=== PATIENT | female | born 1980 | race Caucasian/White ===

== ENCOUNTER 2019-07-21 23:29 | Emergency (ER) | payer OTHER, SELFPAY ==
[2019-07-21 23:30] VITALS: BP 158/80; PULSE 125; RESP 18; TEMP 36.7; O2SAT 100; BMI 32.8
--- NOTE | 2019-07-21 23:39 | ED.RN ---
when walking back from triage pt reports to this rn chest pain. pt placed in gown, on quality assurance monitor chassis. reports pain goes through to her back. this rn called for an ekg. pt sinus tach on monitor at 130. waiting to be seen.
--- NOTE | 2019-07-22 00:06 | RAD_ITS ---
STUDY: X-RAY CHEST REASON FOR EXAM: Female, 38 years old. C/O COUGH, CP AND UPPER BACK PAIN TECHNIQUE: PA and lateral views of the chest. COMPARISON: None. FINDINGS: The lungs are clear and expanded. There is no demonstrated pleural abnormality. Normal size heart. Normal mediastinum and sherwin. Normal visualized pulmonary arteries. Normal visualized aortic arch and descending thoracic aorta. Normal visualized thoracic spine. Normal visualized ribs, clavicles, and shoulders. There is no demonstrated abnormality of the visualized soft tissue structures of the upper abdomen. RAD/Chest PA and Lateral IMPRESSION: Normal x-ray examination of the chest. Electronically Signed: Charity Serrano MD at 0:44 EST , Service support ,
--- NOTE | 2019-07-22 00:06 | EKG12_ITS ---
Test Reason : CHEST TIGHTNESS Blood Pressure : / mmHG Vent. Rate : 126 BPM Atrial Rate : 126 BPM P-R Int : 114 ms QRS Dur : 080 ms QT Int : 316 ms P-R-T Axes : 063 078 064 degrees QTc Int : 457 ms Sinus tachycardia with Premature supraventricular complexes Otherwise normal ECG Confirmed by MILI REYES ([id number]), avid editor CHARMAINE PORTER ([id number]) on 07/25/2019 9:23:54 AM Referred By: Georgiana Holden Confirmed By:MILI REYES
--- NOTE | 2019-07-22 00:08 | ED.VIS.GEN ---
History of Present Illness Chief Complaint: General Illness Narrative: Patient is a 38-year-old female who presents with chest pain. She initially noted symptoms about 2 hours ago. She had a mild discomfort in the center of her chest. This is sharp. She now complains of central thoracic back pain. Her pain currently is a 5 out of 10. She is not short of breath. Her pain is not pleuritic. She also checked her vitals and noted that she was tachycardic. She has been exposed to influenza. She complains of mild myalgias and mild sore throat. No fever. No cough. No vomiting or diarrhea. She is treated for ADD but has no other medical history. She denies history of DVT or pulmonary embolism. She denies leg pain or swelling. She denies recent travel or surgery. Past Medical History - Allergies and Home Meds Allergies/Adverse Reactions: Allergies amoxicillin [From Augmentin] Allergy (Verified 07/21/19 23:33) Shortness of breath clavulanic acid [From Augmentin] Allergy (Verified 07/21/19 23:33) Shortness of breath Primary Care Physician: Georgiana Holden DO [Primary Care Provider] - Past Medical History: - - ADD Smoking Status: Current every day smoker Review of Systems All systems negative except as indicated General: Denies: Chills, Fever Eyes: Denies: Visual changes - bilaterally ENT: Reports: Sore throat. Denies: Bilateral ear pain Cardiovascular: Reports: Chest pain Respiratory: Denies: Dyspnea Gastrointestinal: Denies: Abdominal pain, Nausea, Vomiting Musculoskeletal: Reports: Myalgias. Denies: Extremity Pain Skin: Denies: Rash Neurological: Denies: Headache Physical Exam Vital Signs/Narrative: Vital Signs Temp Pulse Resp BP Pulse Ox 07/21/19 23:30 98.1 F 125 H 18 158/80 H 100 Diagnostic/Tx/Re-eval Impressions Chest X-Ray 07/22/19 00:06 IMPRESSION: Normal x-ray examination of the chest. Electronically Signed: Charity Serrano MD at 0:44 EST , Service support , Chest CTA 07/22/19 00:46 IMPRESSION: Negative CTA chest examination, without a demonstrated pulmonary embolism or arterial dissection. Mild apical emphysematous changes otherwise no acute cardiopulmonary process seen. Electronically Signed: Charity Serrano MD at 2:09 EST , Service support , 07/22/19 00:06 Chest PA and Lateral [RAD] Stat 07/22/19 00:46 CTA Chest W/WO Contrast [CT] Stat 07/22/19 00:20 Mucosa - Nasopharyngeal Influenza Types A,B Direct FA ([facility]) - Final Influenzae A Laboratory Results 07/22/19 07/22/19 07/22/19 00:20 00:20 00:20 WBC 8.1 RBC 5.19 Hgb 14.2 Hct 43.0 MCV 82.9 MCH 27.4 MCHC 33.0 RDW Std Deviation 43.1 RDW Coeff of Jo 14.2 Plt Count 247 MPV 10.1 Immature Gran % (Auto) 0.500 Neut % (Auto) 81.9 H Lymph % (Auto) 8.5 L [place] % (Auto) 7.6 Eos % (Auto) 0.9 Baso % (Auto) 0.6 Absolute Neuts (auto) 6.6 Absolute Lymphs (auto) 0.69 L Nucleated RBC % 0 D-Dimer Quant (PE/DVT) 0.78 H* Sodium 139 Potassium 3.9 Chloride 107 Carbon Dioxide 28.0 Anion Gap 4 L BUN 12 Creatinine 0.82 Estim Creat Clear Calc 77.70 Est GFR (MDRD) Af Amer 101 Est GFR (MDRD) Non-Af 84 BUN/Creatinine Ratio 14.7 Glucose 90 Calcium 9.5 Troponin I < 0.015 - Medical Decision Making Patient underwent the above work-up. EKG shows sinus tachycardia with PACs at a rate of 126. Given tachycardia with otherwise unexplained sudden onset sharp chest pain, pulmonary embolism is considered. She was felt to be low risk so initially obtain d-dimer. This did return greater than 0.5. Therefore CTA was obtained which is negative for pulmonary embolism. Patient did return positive for influenza A. Patient is otherwise generally healthy. She does not meet criteria for hospitalization. We discussed risks and benefits of antiviral therapy and given potential side effect profile patient agrees with my plan to defer on treatment stating she does not want it. However she does understand to return for new or worsening symptoms. 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 Patient understands otherwise to follow-up as an outpatient and to return for new or worsening symptoms and was discharged home. ED Disposition - Plan for ED Patient: Disposition: Home or Assisted Living Diagnosis: Influenza A Instructions: INFLUENZA (Adult) Referrals: Georgiana Holden DO [Primary Care Provider] -
[2019-07-22] MEDS: 0.9% Normal Saline 1,000 ML 999 ML IV (00:24)
[2019-07-22 00:34] LABS: Absolute Lymphocyte Count 0.69 X10^3/uL (0.83-4.51); Absolute Neutrophil Count 6.6 X10^3/uL (2.0-7.7); Basophil# 0.05 X10^3/uL; Basophil% 0.6 % (0-1); Eosinophil# 0.07 X10^3/uL; Eosinophils% 0.9 % (0-5); Hemoglobin 14.2 g/dL (12.0-15.0); Lymphocyte # 0.69 X10^3/ul (4.0); Lymphocyte % 8.5 % (19-41); Mean Corpuscular Hgb 27.4 pg (27.0-32.0); Mean Corpuscular Volume 82.9 fL (81-99); Mean Platelet Vol. 10.1 fl (6.2-12.0); Monocyte# 0.62 X10^3/uL; Monocyte% 7.6 % (0-10); NRBC Flagged by Analyzer 0 % (0-5); Neutrophil # 6.64 X10^3/uL (2.7-7.7); Neutrophil % 81.9 % (47-70); Platelet Count 247 K/mm3 (150-450); RBC Distribution Width CV 14.2 % (11.6-14.6); RBC Distribution Width SD 43.1 fl (35.1-43.9); Red Blood Count 5.19 M/mm3 (4.2-5.4); White Blood Count 8.1 K/mm3 (4.4-11.0)
[2019-07-22 00:41] VITALS: BP 132/81; PULSE 118; RESP 18; TEMP 36.7; O2SAT 98
[2019-07-22 00:43] LABS: D-Dimer Quantitative (DVT/PE) 0.78 FEU/ug/m (0.27-0.49)
--- NOTE | 2019-07-22 00:46 | CT_ITS ---
STUDY: CTA CHEST REASON FOR EXAM: Female, 38 years old. ELEV DDIMER/INFLUENZA B. cough RADIATION DOSAGE (If Supplied By Facility): CTDIvol = ( 10.95 ) mGy, DLP = ( 487.62 ) mGycm TECHNIQUE: The examination was performed with the intravenous administration of Isovue 370 100ml. Post-processing of the angiographic images was performed, with multiplanar reformation and 3D reconstruction. Individualized dose optimization techniques were used for this CT. COMPARISON: None. FINDINGS: Normal enhancement of the main pulmonary artery and right and left pulmonary arteries. Normal enhancement of the bilateral peripheral pulmonary arteries. There is no demonstrated pulmonary embolism. Normal thoracic aorta and visualized great vessels. There is no demonstrated aortic dissection. Normal heart and pericardium. Borderline mild lymph node enlargement throughout the bilateral hilar regions, aortopulmonary window and paratracheal region largest averaging approximately 1.3 x 1.4 cm. Normal hilar regions. Normal visualized trachea and bronchi. The lungs are well expanded. Minimal bilateral apical emphysematous changes. Otherwise normal pulmonary parenchyma. Normal pleura. Normal chest wall structures. Mild multilevel degenerative disease of the spine. Normal visualized upper abdomen. CT/CTA Chest W/WO Contrast IMPRESSION: Negative CTA chest examination, without a demonstrated pulmonary embolism or arterial dissection. Mild apical emphysematous changes otherwise no acute cardiopulmonary process seen. Electronically Signed: Charity Serrano MD at 2:09 EST , Service support ,
[2019-07-22 00:54] LABS: Anion Gap 4 (5-15); BUN 12 mg/dL (7-18); BUN/Creat Ratio 14.7 RATIO (10-20); Calcium,Total 9.5 mg/dL (8.5-10.1); Chloride 107 mmol/L (98-107); Creatinine, Serum 0.82 mg/dL (0.55-1.02); EST Glomerular Filtration Rate 84 mL/min (>60); Est Glom Filt Rate - Afr Amer 101 mL/min (>60); Glucose 90 mg/dL (74-106); Potassium 3.9 mmol/L (3.5-5.1); Sodium Level 139 mmol/L (136-145)
[2019-07-22 01:54] VITALS: BP 133/75; PULSE 115; RESP 18; TEMP 36.7; O2SAT 98
[2019-07-22 02:34] VITALS: BP 125/88; PULSE 108; RESP 18; O2SAT 100
== END 2019-07-22 02:35 | disposition home or self-care (01) ==
PROVIDERS: Emergency Provider Emergency Medicine
DX: J11.1 Influenza due to unidentified influenza virus with other respiratory manifestations (principal); F98.8 Other specified behavioral and emotional disorders with onset usually occurring in childhood and adolescence; Z72.0 Tobacco use; Z79.899 Other long term (current) drug therapy
CPT/HCPCS: 71046; 71275; 80048; 84484; 85025; 85379; 87804; 93005; 96360; 96361; 99285; J7030; Q9967; A4216

== ENCOUNTER → 2019-11-05 07:50 | Outpatient (CLI) | payer OTHER, SELFPAY ==
--- NOTE | 2019-11-05 07:54 | US_ITS ---
STUDY: ABDOMINAL ULTRASOUND - RIGHT UPPER QUADRANT REASON FOR VISIT: Female, 39 years old ABD PAIN TECHNIQUE: Ultrasound evaluation of the right upper quadrant was performed with real-time and static medina-scale imaging. TECHNICAL QUALITY: Adequate. COMPARISON: None. FINDINGS: Liver: The liver measures 15.9 cm. There is normal echogenicity of the liver. The bile ducts are within normal limits. There is hepatic color flow. The direction of portal flow is hepatopetal. There is no demonstrated mass lesion. Gallbladder: Normal distended gallbladder. The gallbladder wall measures 2 mm. There is a negative sonographic Cho''s sign. There is no pericholecystic fluid. There are no gallstones. Common Bile Duct (C.B.D.): The common bile duct measures 2 mm. Pancreas: Normal size of the head, body and tail of the pancreas. There is normal echogenicity of the pancreas. There is no demonstrated pancreatic mass or cyst. Right Kidney: Normal size of the right kidney. The right kidney measures 12.5 cm. Normal renal cortex. The right cortex measures 1.6 cm. There is no demonstrated renal mass or cyst. There is no right hydronephrosis. US/Abdomen Limited IMPRESSION: Normal right upper quadrant ultrasound examination. Electronically Signed: Dale Gold MD at 8:38 EDT Tel , Service support ,
== END ==
DX: R10.11 Right upper quadrant pain (principal)
CPT/HCPCS: 76705

== ENCOUNTER 2020-03-16 08:33 | Outpatient (RCR) | payer OTHER, SELFPAY | END 2020-03-17 23:59 | LOC: EMPH 08:33 | PROVIDERS: Visit Provider Family Medicine Geriatric Medicine | DX: Z11.59 Encounter for screening for other viral diseases (principal) | CPT/HCPCS: 87635; U0003 ==

== ENCOUNTER 2020-04-16 17:50 | Outpatient (RCR) | payer OTHER, SELFPAY | END 2020-04-17 23:59 | LOC: EMPH 17:50 | PROVIDERS: Visit Provider Family Medicine Geriatric Medicine | DX: Z03.818 Encounter for observation for suspected exposure to other biological agents ruled out (principal) | CPT/HCPCS: 87426 ==

== ENCOUNTER 2020-05-12 08:07 | Outpatient (RCR) | payer OTHER, SELFPAY | END 2020-05-17 23:59 | LOC: EMPH 08:07 | PROVIDERS: Visit Provider Family Medicine Geriatric Medicine | DX: Z03.818 Encounter for observation for suspected exposure to other biological agents ruled out (principal) | CPT/HCPCS: 87426 ==

== ENCOUNTER 2020-06-16 14:09 | Outpatient (RCR) | payer OTHER, SELFPAY ==
[2020-05-31 18:12] LABS: Probe Check PASS; Specimen Processing Control PASS
== END 2020-06-17 23:59 ==
LOC: EMPH 14:09
PROVIDERS: Internal Medicine Infectious Disease; Visit Provider Family Medicine Geriatric Medicine
DX: Z03.818 Encounter for observation for suspected exposure to other biological agents ruled out (principal)
CPT/HCPCS: 87426; 87633; 87635; U0002

== ENCOUNTER 2020-07-16 08:43 | Outpatient (RCR) | payer OTHER, SELFPAY ==
[2020-06-17 08:15] VITALS: BMI 37.6
== END 2020-07-18 23:59 ==
LOC: EMPH 08:43
PROVIDERS: Referring Provider Family Medicine Geriatric Medicine; Visit Provider Family Medicine Geriatric Medicine
DX: Z03.818 Encounter for observation for suspected exposure to other biological agents ruled out (principal)
CPT/HCPCS: 87426

== ENCOUNTER 2020-08-10 12:27 | Outpatient (RCR) | payer OTHER, SELFPAY ==
[2020-06-17 08:15] VITALS: BMI 37.6
== END 2020-08-15 23:59 ==
LOC: EMPH 12:27
PROVIDERS: Visit Provider Family Medicine Geriatric Medicine
DX: Z03.818 Encounter for observation for suspected exposure to other biological agents ruled out (principal)
CPT/HCPCS: 87426

== ENCOUNTER 2020-09-09 08:07 | Outpatient (RCR) | payer OTHER, SELFPAY ==
[2020-06-17 08:15] VITALS: BMI 37.6
== END 2020-09-15 23:59 ==
LOC: EMPH 08:07
PROVIDERS: Visit Provider Family Medicine Geriatric Medicine
DX: Z03.818 Encounter for observation for suspected exposure to other biological agents ruled out (principal)
CPT/HCPCS: 87426

== ENCOUNTER 2020-10-15 10:03 | Outpatient (RCR) | payer OTHER, SELFPAY ==
[2020-06-17 08:15] VITALS: BMI 37.6
== END 2020-10-15 23:59 ==
LOC: EMPH 10:03
PROVIDERS: Visit Provider Family Medicine Geriatric Medicine
DX: Z03.818 Encounter for observation for suspected exposure to other biological agents ruled out (principal)
CPT/HCPCS: 87426

== ENCOUNTER 2020-12-14 11:04 | Outpatient (RCR) | payer OTHER, SELFPAY ==
[2020-06-17 08:15] VITALS: BMI 37.6
== END 2020-12-15 23:59 ==
LOC: EMPH 11:04
PROVIDERS: Visit Provider Family Medicine Geriatric Medicine
DX: Z03.818 Encounter for observation for suspected exposure to other biological agents ruled out (principal)
CPT/HCPCS: 87426

== ENCOUNTER 2021-02-15 11:46 | Outpatient (RCR) | payer OTHER, SELFPAY ==
[2020-06-17 08:15] VITALS: BMI 37.6
== END 2021-02-15 23:59 ==
LOC: EMPH 11:46
PROVIDERS: Referring Provider Family Medicine Geriatric Medicine; Visit Provider Family Medicine Geriatric Medicine
DX: Z03.818 Encounter for observation for suspected exposure to other biological agents ruled out (principal)
CPT/HCPCS: 87426

== ENCOUNTER 2021-03-10 08:31 | Outpatient (RCR) | payer OTHER, SELFPAY ==
[2021-02-16 00:15] VITALS: BMI 37.6
== END 2021-03-17 23:59 ==
LOC: EMPH 08:31
PROVIDERS: Referring Provider Family Medicine Geriatric Medicine; Visit Provider Family Medicine Geriatric Medicine
DX: Z03.818 Encounter for observation for suspected exposure to other biological agents ruled out (principal)
CPT/HCPCS: 87426

== ENCOUNTER 2021-04-28 13:58 | Outpatient (RCR) | payer OTHER, SELFPAY ==
[2021-03-18 00:11] VITALS: BMI 37.6
== END 2021-05-17 23:59 ==
LOC: EMPH 13:58
PROVIDERS: Referring Provider Family Medicine Geriatric Medicine; Visit Provider Family Medicine Geriatric Medicine
DX: Z03.818 Encounter for observation for suspected exposure to other biological agents ruled out (principal)
CPT/HCPCS: 87426

== ENCOUNTER 2021-06-16 10:06 | Outpatient (RCR) | payer OTHER, SELFPAY ==
[2021-05-18 00:06] VITALS: BMI 37.6
== END 2021-06-17 23:59 ==
LOC: EMPH 10:06
PROVIDERS: Referring Provider Family Medicine Geriatric Medicine; Visit Provider Family Medicine Geriatric Medicine
DX: Z03.818 Encounter for observation for suspected exposure to other biological agents ruled out (principal)
CPT/HCPCS: 87426; 87635; U0003; U0005

== ENCOUNTER → 2021-07-01 06:19 | Outpatient (CLI) | payer OTHER, SELFPAY ==
[2021-07-01 07:31] LABS: Absolute Lymphocyte Count 2.53 X10^3/uL (0.83-4.51); Absolute Neutrophil Count 7.7 X10^3/uL (2.0-7.7); Basophil# 0.07 X10^3/uL; Basophil% 0.6 % (0-1); Eosinophil# 0.13 X10^3/uL; Eosinophils% 1.2 % (0-5); Hematocrit 46.2 % (37-47); Lymphocyte # 2.53 X10^3/ul (0.83-4.51); Lymphocyte % 22.7 % (19-41); Mean Corp Hgb Conc 32.5 g/dL (32-36); Mean Corpuscular Hgb 26.3 pg (27.0-32.0); Mean Corpuscular Volume 81.1 fL (81-99); Mean Platelet Vol. 9.9 fl (6.2-12.0); Monocyte% 6.3 % (0-10); NRBC Flagged by Analyzer 0 % (0-5); Neutrophil # 7.68 X10^3/uL (2.7-7.7); Neutrophil % 68.8 % (47-70); Platelet Count 347 K/mm3 (150-450); RBC Distribution Width CV 14.7 % (11.6-14.6); RBC Distribution Width SD 42.8 fl (35.1-43.9); White Blood Count 11.2 K/mm3 (4.4-11.0)
[2021-07-01 08:14] LABS: AST(SGOT) 12 U/L (15-37); Alanine Aminotransfer ALT/SGPT 29 U/L (13-56); Alkaline Phosphatase 85 U/L (45-117); Anion Gap 4 (5-15); BUN 14 mg/dL (7-18); BUN/Creat Ratio 19.4 RATIO (10-20); Calcium,Total 9.9 mg/dL (8.5-10.1); Chloride 103 mmol/L (98-107); Cholesterol 154 mg/dL (200); Creatinine, Serum 0.72 mg/dL (0.55-1.02); EST Glomerular Filtration Rate 95 mL/min (>60); Est Glom Filt Rate - Afr Amer 115 mL/min (>60); Ferritin 171 ng/mL (8-252); Globulin 4.1 g/dL (2.2-4.2); Glucose 103 mg/dL (74-106); High Density Lipoprotein 44 mg/dL; Iron 29 ug/dL (50-170); Iron Binding Capacity,Total 282 ug/dL (250-450); PERCENT IRON SATURATION 10.3 % (15.0-55.0); Protein, Total 8.1 g/dL (6.4-8.2); Sodium Level 136 mmol/L (136-145); T4 Free Direct 1.29 ng/dL (0.76-1.46); Thyroid Stim Hormone (TSH) 2.66 uIU/mL (0.358-3.74); Triglycerides 86 mg/dL; Very Low Density Lipoprotein 17 mg/dL (5-40)
[2021-07-01 08:55] LABS: Vitamin B12 388 pg/mL (211-911); Vitamin D,25 Hydroxy 23.2 ng/mL
== END ==
DX: Z00.00 Encounter for general adult medical examination without abnormal findings (principal); Z13.29 Encounter for screening for other suspected endocrine disorder; R53.82 Chronic fatigue, unspecified
CPT/HCPCS: 36415; 80053; 80061; 82306; 82607; 82728; 83540; 83550; 84439; 84443; 85025

== ENCOUNTER 2021-07-14 17:55 | Outpatient (RCR) | payer OTHER, SELFPAY ==
[2021-06-18 00:10] VITALS: BMI 37.6
== END 2021-07-18 23:59 ==
LOC: EMPH 17:55
PROVIDERS: Referring Provider Family Medicine Geriatric Medicine; Visit Provider Family Medicine Geriatric Medicine
DX: Z03.818 Encounter for observation for suspected exposure to other biological agents ruled out (principal)
CPT/HCPCS: 87426

== ENCOUNTER 2021-08-15 08:38 | Outpatient (RCR) | payer OTHER, SELFPAY ==
[2021-07-19 00:16] VITALS: BMI 37.6
== END 2021-08-15 23:59 ==
LOC: EMPH 08:38
PROVIDERS: Referring Provider Family Medicine Geriatric Medicine; Visit Provider Family Medicine Geriatric Medicine
DX: Z03.818 Encounter for observation for suspected exposure to other biological agents ruled out (principal)
CPT/HCPCS: 87426

== ENCOUNTER → 2022-08-08 | Outpatient (CLI) | payer OTHER, SELFPAY ==
[2022-08-08 07:26] LABS: Absolute Lymphocyte Count 2.69 X10^3/uL (0.83-4.51); Absolute Neutrophil Count 5.7 X10^3/uL (2.0-7.7); Basophil# 0.06 X10^3/uL; Basophil% 0.7 % (0-1); Eosinophil# 0.16 X10^3/uL; Eosinophils% 1.7 % (0-5); Hematocrit 46.7 % (37-47); Hemoglobin 15.2 g/dL (12.0-15.0); Lymphocyte # 2.69 X10^3/ul (0.83-4.51); Lymphocyte % 29.2 % (19-41); Mean Corp Hgb Conc 32.5 g/dL (32-36); Mean Corpuscular Volume 82.8 fL (81-99); Mean Platelet Vol. 9.8 fl (6.2-12.0); Monocyte# 0.52 X10^3/uL; Monocyte% 5.6 % (0-10); NRBC Flagged by Analyzer 0 % (0-5); Neutrophil # 5.74 X10^3/uL (2.7-7.7); Neutrophil % 62.4 % (47-70); Platelet Count 358 K/mm3 (150-450); RBC Distribution Width CV 15.1 % (11.6-14.6); RBC Distribution Width SD 45.9 fl (35.1-43.9); Red Blood Count 5.64 M/mm3 (4.2-5.4); White Blood Count 9.2 K/mm3 (4.4-11.0)
[2022-08-08 08:10] LABS: ALB/GLOB Ratio 0.8 RATIO (0.9-2.4); AST(SGOT) 18 U/L (15-37); Alanine Aminotransfer ALT/SGPT 24 U/L (13-56); Albumin, Serum 3.5 g/dL (3.2-5.0); Alkaline Phosphatase 94 U/L (45-117); Anion Gap 4 (5-15); BUN 11 mg/dL (7-18); BUN/Creat Ratio 12.4 RATIO (10-20); Calcium,Total 9.7 mg/dL (8.5-10.1); Chloride 109 mmol/L (98-107); Cholesterol 162 mg/dL (200); Creatinine, Serum 0.89 mg/dL (0.55-1.02); EST Glomerular Filtration Rate 75 mL/min (>60); Est Glom Filt Rate - Afr Amer 90 mL/min (>60); Ferritin 212 ng/mL (8-252); Globulin 4.2 g/dL (2.2-4.2); Glucose 80 mg/dL (74-106); High Density Lipoprotein 48 mg/dL; Iron 41 ug/dL (50-170); Iron Binding Capacity,Total 253 ug/dL (250-450); PERCENT IRON SATURATION 16.2 % (15.0-55.0); Protein, Total 7.7 g/dL (6.4-8.2); Sodium Level 138 mmol/L (136-145); Thyroid Stim Hormone (TSH) 1.42 uIU/mL (0.358-3.74); Triglycerides 115 mg/dL; Very Low Density Lipoprotein 23 mg/dL (5-40)
[2022-08-08 08:49] LABS: Vitamin D,25 Hydroxy 28.2 ng/mL
== END | disposition home or self-care (01) ==
LOC: LAB 06:49
DX: Z00.00 Encounter for general adult medical examination without abnormal findings (principal); E61.1 Iron deficiency; E55.9 Vitamin D deficiency, unspecified; Z13.29 Encounter for screening for other suspected endocrine disorder; Z13.220 Encounter for screening for lipoid disorders; Z13.6 Encounter for screening for cardiovascular disorders
CPT/HCPCS: 36415; 80053; 80061; 82306; 82728; 83540; 83550; 84439; 84443; 85025

== ENCOUNTER → 2023-01-23 | Outpatient (CLI) | payer OTHER, SELFPAY ==
--- NOTE | 2023-01-23 07:18 | BI_ITS ---
MAMMOGRAPHY - BILATERAL SCREENING REASON FOR EXAM: Female, 42 years old. Routine annual screening examination. PERTINENT HISTORY: Grandmother with breast cancer. TECHNIQUE: Digital bilateral breast mayank (3D mammographic acquisition) in the CC and MLO projections. 2-D mediolateral oblique (MLO) and craniocaudad (CC) views of both breasts were obtained. CAD: Full Field Digital Mammography with Computer Added Detection was performed. COMPARISON: None. Baseline examination. FINDINGS: Breast Composition: The breasts are extremely dense, which lowers the sensitivity of mammography. There are no dominant masses or suspicious calcifications. There is a 6.1 mm well-defined nodule in the upper lateral aspect of the left breast. This may represent either a cyst or small lymph node. Correlation with ultrasound is recommended. Small benign-appearing bilateral axillary lymph nodes. No other significant abnormalities are identified. BI/SCRN MAMM (CAD)W/MAYANK BILAT IMPRESSION: 6.1 mm well-defined nodule in the upper lateral aspect of the left breast. Correlation with ultrasound is recommended. ASSESSMENT CATEGORY: BIRADS Category 0: Incomplete. Need additional imaging evaluation. A letter regarding these results will be sent to the patient by the facility within 30 days. Approximately 10% of breast cancers are not detected by mammography. A normal mammogram should not delay biopsy of a clinically suspicious abnormality. [id number] Electronically Signed: Sherwin Johnson MD at 10:57 EDT ,
== END | disposition home or self-care (01) ==
DX: Z12.31 Encounter for screening mammogram for malignant neoplasm of breast (principal)
CPT/HCPCS: 77063; 77067

== ENCOUNTER → 2023-01-30 | Outpatient (CLI) | payer OTHER, SELFPAY ==
--- NOTE | 2023-01-30 08:03 | US_ITS ---
STUDY: ULTRASOUND BREAST - LEFT REASON FOR EXAM: Female, 42 years old. Abnormal screening mammogram. TECHNIQUE: Axial and longitudinal images of the LEFT breast were performed with a high resolution ultrasound transducer. # OF IMAGES: 18 COMPARISON: Comparison is made with prior study date January 23, 2023. FINDINGS: LEFT Breast: The mammographic abnormality corresponds to a 6 mm x 8 mm x 4 mm cyst at the 1:00 position of the breast at 2 cm from the nipple. US/Breast Limited Unilateral IMPRESSION: The mammographic abnormality corresponds to an 8 mm x 6 mm x 4 mm cyst at the 1:00 position of the breast at 2 cm from the nipple. ASSESSMENT CATEGORY: BIRADS Category 2: Benign. A letter regarding these results will be sent to the patient by the facility within 30 days. Electronically Signed: Sherwin Johnson MD at 10:48 EDT ,
== END | disposition home or self-care (01) ==
DX: R92.8 Other abnormal and inconclusive findings on diagnostic imaging of breast (principal)
CPT/HCPCS: 76642

== ENCOUNTER → 2023-06-28 | Outpatient (CLI) | payer OTHER, SELFPAY ==
--- OUTSIDE RECORDS SUMMARY | 2023-06-28 06:24 | XMS RPT_ITS | CCD ---
Author Name Unknown Address [address] [place] [address] Organization [facility] Care Team Providers Care Photoengraving Apprentice Name Role Phone Unavailable Unavailable Unavailable Abisai Wyman Unavailable Unavailable Abisai Wyman Unavailable Unavailable Beth Castillo Primary Care Provider Beth Cabral Primary Care Provider [phone] [facility] CABRAL Admitting Unavailable BETH CABRAL Primary Care Unavailable Beth Cabral Primary Care Provider Required, No Pcp Unavailable Unavailable Christian Garcia Unavailable Unavailable Linda [facility]LAND ATTENDANT, Rachael Lima Primary Care Provider Linda [employer]LAND ATTENDANT, Rachael Lima Primary Care Provider Linda [employer] ATTENDANT, Rachael Lima Unavailable Linda [employer] ATTENDANT, Rachael Lima Unavailable [phone] Deonte Dsouza Unavailable Linda [employer] ATTENDANT, Rachael Lima Primary Care Provider [phone] Linda [employer] ATTENDANT, Rachael Lima Unavailable [phone] Linda [employer] ATTENDANT, Rachael Lima Primary Care Provider LINDA, RACHAEL LIMA Primary Care Unavailable LINDA, RACHAEL LIMA Attending Unavailable LINDA, RACHAEL LIMA Primary Care Unavailable LINDA, RACHAEL LIMA Attending Unavailable LINDA, RACHAEL LIMA Attending Unavailable LINDA, RACHAEL LIMA Primary Care Unavailable LINDA, RACHAEL LIMA Attending Unavailable LINDA, RACHAEL LIMA Primary Care Unavailable LINDA, RACHAEL LIMA Attending Unavailable LINDA, RACHAEL LIMA Primary Care Unavailable LINDA, RACHAEL LIMA Primary Care Unavailable LINDA, RACHAEL LIMA Attending Unavailable Allergies Allergy Classification Reported Allergen(s) Allergy Type Date of Onset Reaction(s) Facility Amoxicillin / Clavulanate (1 source) Amoxicillin / Clavulanate Drug Allergy 9 Hives [facility] Work Phone: Clavulanate (1 source) Clavulanate Drug Allergy 0 [facility] Penicillins (antibiotic) (1 source) Penicillins Drug Allergy 5 [facility] (19 sources) Amoxicillin / Clavulanate; Translations: [Unknown] Drug Allergy 9 Hives, Anaphylaxis [facility] (14 sources) Clavulanate; Translations: [CLAVULANIC ACID] Drug Allergy 0 [facility] (14 sources) Penicillins; Translations: [PENICILLINS] Propensity to adverse reactions to drug 5 [facility] (1 source) Amoxicillin / Clavulanate Drug Allergy Anaphylaxis [facility] Medications Current Medications Medication Drug Class(es) Dates Sig (Normalized) Sig (Original) amphetamine aspartate 7.5 mg / amphetamine sulfate 7.5 mg / dextroamphetamine saccharate 7.5 mg / dextroamphetamine sulfate 7.5 mg oral tablet (20 sources) Central Nervous System Stimulant Start: 01-31-2023 End: 06-29-2023 take 1 tablet by mouth twice daily dextroamphetamine- amphetamine (ADDERALL) 30 mg tablet Indications: Attention deficit hyperactivity disorder (ADHD), predominantly inattentive type Take 1 (one) tablet (30 mg total) by mouth 2 (two) times a day Start: 05/30/23. 60 tablet 0 05/30/2023 06/29/2023 Active Completed/Discontinued Medications Medication Drug Class(es) Dates Sig (Normalized) Sig (Original) baclofen 10 mg oral tablet (1 source) gamma-Aminobutyric Acid-ergic Agonist Start: 08-03-2021 End: 02-10-2022 take 1 tablet by mouth twice daily baclofen (LIORESAL) 10 MG tablet Take 10 mg by mouth 2 (two) times a day . 0 08/03/2021 02/10/2022 Discontinued (Therapy completed) clindamycin 300 mg oral capsule (2 sources) Lincosamide Antibacterial Start: 06-20-2022 End: 07-19-2022 take 1 capsule by mouth three times daily clindamycin (CLEOCIN) 300 MG capsule Indications: Dental infection Take 1 (one) capsule (300 mg total) by mouth 3 (three) times a day . 30 capsule 0 06/20/2022 07/19/2022 Discontinued (Therapy completed) fluconazole 150 mg oral tablet (2 sources) Azole Antifungal Start: 06-20-2022 End: 07-19-2022 take 1 tablet by mouth every other day fluconazole (DIFLUCAN) 150 MG tablet Take 1 (one) tablet (150 mg total) by mouth every other day . 3 tablet 0 06/20/2022 07/19/2022 Discontinued (Therapy completed) FLUoxetine 40 mg oral capsule (8 sources) Serotonin Reuptake Inhibitor Start: 09-14-2021 End: 02-10-2022 take 1 capsule by mouth once daily FLUoxetine (PROZAC) 40 MG capsule Indications: ANSIH (generalized anxiety disorder) Take 1 (one) capsule (40 mg total) by mouth daily . 90 capsule 1 09/14/2021 02/10/2022 Discontinued (Therapy completed) Problems Active Problems Problem Classification Problem Date Documented Date Episodic/Chronic Anxiety disorders (16 sources) Generalized anxiety disorder; Translations: [Generalized anxiety disorder] Onset: 06-23-2019 06-23-2019 Chronic Attention-deficit conduct and disruptive behavior disorders (20 sources) Attention deficit hyperactivity disorder; Translations: [Attention-deficit hyperactivity disorder, unspecified type] Onset: 08-09-2018 08-09-2018 Chronic Attention-deficit, conduct, and disruptive behavior disorders (7 sources) Attention deficit hyperactivity disorder, predominantly inattentive type; Translations: [Attention-deficit hyperactivity disorder, predominantly inattentive type] Chronic Attention-deficit, conduct, and disruptive behavior disorders (2 sources) Attention-deficit hyperactivity disorder, predominantly inattentive type; Translations: [Attention-deficit hyperactivity disorder, predominantly inattentive type] Onset: 08-09-2018 Chronic Headache; including migraine (9 sources) Refractory migraine with aura; Translations: [Migraine with aura, intractable, without status migrainosus] Onset: 02-23-2022 Chronic Mood disorders (20 sources) Depressive disorder; Translations: [Mood disorder] Onset: 06-23-2019 06-23-2019 Chronic Mood disorders (2 sources) Mood disorders; Translations: [Depression, unspecified] Onset: 06-23-2019 Nausea and vomiting (2 sources) Vomiting 11-17-2020 Episodic Past or Other Problems Problem Classification Problem Date Documented Da te Episodic/Chronic Other screening for suspected conditions (not mental disorders or infectious disease) (20 sources) Patient encounter status; Translations: [Encounter for screening mammogram for malignant neoplasm of breast] Onset: 02-23-2022 Resolved: 10-18-2022 Episodic Other skin disorders (18 sources) Hidradenitis suppurativa; Translations: [Hidradenitis suppurativa] Onset: 08-09-2018 08-09-2018 Episodic Results Test Name Value Interpretation Reference Range Facil ity Vital Signs Date Time Vital Sign Value Performing Clinician Facility 04-04-2023 10:32-0400 Body height 160 cm Rachael Linda [employer] ATTENDANT Work Phone: [facility] 04-04-2023 10:32-0400 Body mass index (BMI) [Ratio] 37.24 kg/m2 Rachael Linda CNP Work Phone: [facility] 04-04-2023 10:32-0400 Body temperature 98.1 [degF] Rachael Linda [employer] ATTENDANT Work Phone: [facility] 04-04-2023 10:32-0400 Body weight 95.35 kg Rachael Linda CNP Work Phone: [facility] 04-04-2023 10:32-0400 Diastolic blood pressure 83 mm[Hg] Rachael Linda CNP Work Phone: [facility] 04-04-2023 10:32-0400 Heart rate 106 /min Rachael Linda CNP Work Phone: [facility] 04-04-2023 10:32-0400 SaO2% (BldA) [Mass fraction] 93 % Rachael Linda [employer] ATTENDANT Work Phone: [facility] 04-04-2023 10:32-0400 Systolic blood pressure 125 mm[Hg] Rachael Linda [employer] ATTENDANT Work Phone: [facility] 07-19-2022 15:01-0500 Body height 160 cm Rachael Linda [employer] ATTENDANT Work Phone: [facility] 07-19-2022 15:01-0500 Body mass index (BMI) [Ratio] 37.75 kg/m2 Rachael Linda [employer] ATTENDANT Work Phone: [facility] 07-19-2022 15:01-0500 Body temperature 98.29 [degF] Rachael Linda [employer] ATTENDANT Work Phone: [facility] 07-19-2022 15:01-0500 Body weight 96.66 kg Rachael Linda [employer] ATTENDANT Work Phone: [facility] 07-19-2022 15:01-0500 Diastolic blood pressure 80 mm[Hg] Rachael Linda [employer] ATTENDANT Work Phone: [facility] 07-19-2022 15:01-0500 Heart rate 106 /min Rachael Linda [employer] ATTENDANT Work Phone: [facility] 07-19-2022 15:01-0500 Respiratory rate 16 /min Rachael Linda [employer] ATTENDANT Work Phone: [facility] 07-19-2022 15:01-0500 SaO2% (BldA) [Mass fraction] 98 % Rachael Linda [employer] ATTENDANT Work Phone: [facility] 07-19-2022 15:01-0500 Systolic blood pressure 115 mm[Hg] Rachael Linda [employer] ATTENDANT Work Phone: [facility] 08-03-2021 15:12-0500 Body height 160 cm No Pcp Required [facility] 08-03-2021 15:12-0500 Body temperature 96.98 [degF] No Pcp Required [facility] 08-03-2021 15:12-0500 Diastolic blood pressure 67 mm[Hg] No Pcp Required [facility] 08-03-2021 15:12-0500 Heart rate 96 /min No Pcp Required [facility] 08-03-2021 15:12-0500 Respiratory rate 16 /min No Pcp Required [facility] 08-03-2021 15:12-0500 SaO2% (BldA) [Mass fraction] 96 % No Pcp Required [facility] 08-03-2021 15:12-0500 Systolic blood pressure 124 mm[Hg] No Pcp Required [facility] 04-15-2021 08:07-0400 Body height 160 cm Rachael Linda [employer] ATTENDANT Work Phone: [facility] 04-15-2021 08:07-0400 Body mass index (BMI) [Ratio] 38.6 kg/m2 Rachael Linda [employer] ATTENDANT Work Phone: [facility] 04-15-2021 08:07-0400 Body temperature 98.1 [degF] Rachael Linda [employer] ATTENDANT Work Phone: [facility] 04-15-2021 08:07-0400 Body weight 98.84 kg Rachael Linda [employer] ATTENDANT Work Phone: [facility] 04-15-2021 08:07-0400 Diastolic blood pressure 82 mm[Hg] Rachael Linda [employer] ATTENDANT Work Phone: [facility] 04-15-2021 08:07-0400 Heart rate 83 /min Rachael Linda [employer] ATTENDANT Work Phone: [facility] 04-15-2021 08:07-0400 Respiratory rate 16 /min Rachael Linda [employer] ATTENDANT Work Phone: [facility] 04-15-2021 08:07-0400 SaO2% (BldA) [Mass fraction] 97 % Rachael Linda [employer] ATTENDANT Work Phone: [facility] 04-15-2021 08:07-0400 Systolic blood pressure 117 mm[Hg] Rachael Linda [employer] ATTENDANT Work Phone: [facility] 12-08-2020 10:48-0400 Body height 160 cm Rachael Linda [employer] ATTENDANT Work Phone: [facility] 12-08-2020 10:48-0400 Body mass index (BMI) [Ratio] 38.3 kg/m2 Rachael Linda [employer] ATTENDANT Work Phone: [facility] 12-08-2020 10:48-0400 Body temperature 98.6 [degF] Rachael Linda [employer]LAND ATTENDANT Work Phone: [facility] 12-08-2020 10:48-0400 Body weight 98.07 kg Rachael Linda [employer] ATTENDANT Work Phone: [facility] 12-08-2020 10:48-0400 Diastolic blood pressure 85 mm[Hg] Rachael Linda [employer] ATTENDANT Work Phone: [facility] 12-08-2020 10:48-0400 Heart rate 103 /min Rachael Linda [employer] ATTENDANT Work Phone: [facility] 12-08-2020 10:48-0400 Respiratory rate 16 /min Rachael Linda [employer] ATTENDANT Work Phone: [facility] 12-08-2020 10:48-0400 SaO2% (BldA) [Mass fraction] 98 % Rachael Linda [employer] ATTENDANT Work Phone: [facility] 12-08-2020 10:48-0400 Systolic blood pressure 128 mm[Hg] Rachael Linda [employer] ATTENDANT Work Phone: [facility] 11-17-2020 13:45-0400 Diastolic blood pressure 64 mm[Hg] No Pcp Required [facility] 11-17-2020 13:45-0400 Heart rate 85 /min No Pcp Required [facility] 11-17-2020 13:45-0400 Respiratory rate 16 /min No Pcp Required [facility] 11-17-2020 13:45-0400 SaO2% (BldA) [Mass fraction] 100 % No Pcp Required [facility] 11-17-2020 13:45-0400 Systolic blood pressure 124 mm[Hg] No Pcp Required [facility] 11-17-2020 09:01-0400 Body height 160 cm No Pcp Required [facility] 11-17-2020 09:01-0400 Body temperature 96.98 [degF] No Pcp Required [facility] 11-17-2020 09:01-0400 Body weight 84 kg No Pcp Required [facility] 06-01-2020 11:54-0500 BMI (Body Mass Index) 37.36 kg/m2 Beth Cabral [facility] 06-01-2020 11:54-0500 Body Temperature 97.59 [degF] Beth Cabral [facility] 06-01-2020 11:54-0500 Body weight 95.66 kg Beth Cabral [facility] 06-01-2020 11:54-0500 BP Diastolic 84 mm[Hg] Beth Cabral [facility] 06-01-2020 11:54-0500 BP Systolic 127 mm[Hg] Beth Cabral [facility] 06-01-2020 11:54-0500 Height 160 cm Beth Cabral [facility] 06-01-2020 11:54-0500 Pulse (Heart Rate) 98 /min Beth Cabral [facility] 06-01-2020 11:54-0500 Pulse Oximetry 98 % Beth Cabral [facility] 06-01-2020 11:54-0500 Respiratory Rate 18 /min Beth Cabral [facility] 01-09-2020 10:23-0400 BMI (Body Mass Index) 36.88 kg/m2 [facility]-09-2020 10:23-0400 Body Temperature 97.81 [degF] [facility]-09-2020 10:23-0400 Body weight 94.44 kg Beth Cabral [facility] 01-09-2020 10:23-0400 BP Diastolic 80 mm[Hg] [facility] 01-09-2020 10:23-0400 BP Systolic 116 mm[Hg] [facility] 01-09-2020 10:23-0400 Pulse (Heart Rate) 94 /min [facility] 01-09-2020 10:23-0400 Pulse Oximetry 98 % Beth Cabral [facility] 01-09-2020 10:23-0400 Respiratory Rate 16 /min Beth Cabral [facility] 06-20-2019 08:21-0500 BMI (Body Mass Index) 36.12 kg/m2 Beth Cabral [facility] 06-20-2019 08:21-0500 Body Temperature 97.9 [degF] [facility] 06-20-2019 08:21-0500 Body weight 92.49 kg Beth Cabral [facility] 06-20-2019 08:21-0500 BP Diastolic 79 mm[Hg] [facility] 06-20-2019 08:21-0500 BP Systolic 131 mm[Hg] [facility] 06-20-2019 08:21-0500 Pulse (Heart Rate) 101 /min [facility] 06-20-2019 08:21-0500 Pulse Oximetry 96 % [facility] 06-20-2019 08:21-0500 Respiratory Rate 18 /min Beth Cabral [facility] 02-21-2019 13:38-0400 BMI (Body Mass Index) 35.53 kg/m2 Beth Cabral [facility] 02-21-2019 13:38-0400 Body Temperature 97.5 [degF] Beth Cabral [facility] 02-21-2019 13:38-0400 Body weight 90.99 kg [facility] 02-21-2019 13:38-0400 BP Diastolic 79 mm[Hg] [facility] 02-21-2019 13:38-0400 BP Systolic 112 mm[Hg] [facility] 02-21-2019 13:38-0400 Height 160 cm Beth [facility] 02-21-2019 13:38-0400 Pulse (Heart Rate) 84 /min Beth [facility] 02-21-2019 13:38-0400 Pulse Oximetry 97 % Beth [facility] 11-13-2018 14:34-0400 BMI (Body Mass Index) 33.8 kg/m2 Beth [facility] 11-13-2018 14:34-0400 Body Temperature 98.1 [degF] [facility] 11-13-2018 14:34-0400 BP Diastolic 79 mm[Hg] Beth [facility] 11-13-2018 14:34-0400 BP Systolic 119 mm[Hg] Beth [facility] 11-13-2018 14:34-0400 Pulse (Heart Rate) 81 /min Beth [facility] 11-13-2018 14:34-0400 Pulse Oximetry 98 % Beth [facility] 11-13-2018 14:34-0400 Respiratory Rate 18 /min Beth [facility] 11-13-2018 14:34-0400 Weight 90.72 kg Beth [facility] 08-09-2018 08:24-0500 BMI (Body Mass Index) 34.22 kg/m2 Beth [facility] 08-09-2018 08:24-0500 Body Temperature 98.4 [degF] Beth [facility] 08-09-2018 08:24-0500 BP Diastolic 82 mm[Hg] Beth [facility] 08-09-2018 08:24-0500 BP Systolic 125 mm[Hg] Beth [facility] 08-09-2018 08:24-0500 Height 163.8 cm Beth Castillo [facility] 08-09-2018 08:24-0500 Pulse (Heart Rate) 92 /min Beth Castillo [facility] 08-09-2018 08:24-0500 Pulse Oximetry 94 % Beth Castillo [facility] 08-09-2018 08:24-0500 Respiratory Rate 18 /min Beth Castillo [facility] 08-09-2018 08:24-0500 Weight 91.85 kg Beth Castillo [facility] Encounters Encounter Date Encounter Type Care Provider Facility Start: 05-04-2023 ambulatory RACHAEL LINDA [facility] Ambulatory Start: 04-04-2023 End: 04-04-2023 ambulatory RACHAEL LINDA [facility] Ambul[facility] Start: 04-04-2023 End: 04-04-2023 Patient encounter status Rachael Linda [employer] ATTENDANT Work Phone: [facility] Start: 04-04-2023 End: 04-04-2023 Periodic preventive med est patient 40-64yrs Rachael Linda [employer] ATTENDANT Work Phone: [facility] Primary [facility] Women's [facility] Procedures Date Procedure Procedure Detail Performing Clinician Start: 01-23-2023 Mammography Rachael lyons [employer] ATTENDANT Work Phone: Start: 02-13-2018 End: 02-13-2018 Lipid panel Abisai Wyman Work Phone: Plan of Treatment Date Care Activity Detail Author Start: 04-07-2024 COVID-19 Vaccine ( season) COVID-19 Vaccine () [facility] Immunizations Immunization Date Immunization Notes Care Provider Fa latoya 05-08-2022 influenza virus vacc ine, unspecified formulation Rachael Linda [employer] ATTENDANT Work Phone: [facility] 04-22-2022 influenza, injectabl e, quadrivalent, preservative free Rachael Linda [employer] ATTENDANT Work Phone: [facility] 04-22-2022 influenza, seasonal, injectable Rachael Linda [employer] ATTENDANT Work Phone: [facility] 05-08-2021 influenza, injectabl e, quadrivalent, preservative free Rachael Linda [employer] ATTENDANT Work Phone: [facility] 05-08-2021 influenza, seasonal, injectable Rachael Linda [employer] ATTENDANT Work Phone: [facility] 05-08-2021 influenza, seasonal, injectable, preservative free Rachael Linda [employer] ATTENDANT Work Phone: [facility] 04-01-2021 Pfizer SARS-CoV-2 Vaccination Rachael Linda [employer] ATTENDANT Work Phone: [facility] 07-13-2020 Pfizer SARS-CoV-2 Vaccination Rachael Linda [employer] ATTENDANT Work Phone: [facility] 06-22-2020 Pfizer SARS-CoV-2 Vaccination Rachael Linda [employer] ATTENDANT Work Phone: [facility] 03-15-2020 influenza, injectabl e, quadrivalent, preservative free Rachael Linda [employer] ATTENDANT Work Phone: [facility] 03-15-2020 influenza, seasonal, injectable Rachael Linda [employer] ATTENDANT Work Phone: [facility] 03-15-2020 influenza, seasonal, injectable, preservative free Rachael Linda [employer] ATTENDANT Work Phone: [facility] 03-27-2019 influenza, injectabl e, quadrivalent, preservative free Rachael Linda [employer] ATTENDANT Work Phone: [facility] 03-27-2019 influenza, seasonal, injectable Rachael Linda [employer] ATTENDANT Work Phone: [facility] 03-27-2019 influenza, seasonal, injectable, preservative free Rachael Linda [employer] ATTENDANT Work Phone: [facility] 06-18-2015 diphtheria, tetanus toxoids and acellular pertussis vaccine Beth Castillo [facility] 09-13-2011 hepatitis B vaccine, pediatric or pediatric/adolescent dosage [facility] 03-15-2011 hepatitis B vaccine, pediatric or pediatric/adolescent dosage [facility] 02-07-2011 hepatitis B vaccine, pediatric or pediatric/adolescent dosage [facility] 02-01-2011 tetanus toxoid, redu yarely diphtheria toxoid, and acellular pertussis vaccine, adsorbed [facility] 07-13-1993 measles, mumps and r ubella virus vaccine [facility] 03-10-1987 diphtheria, tetanus toxoids and pertussis vaccine [facility] 03-10-1987 trivalent poliovirus vaccine, live, oral [facility] 09-13-1983 diphtheria, tetanus toxoids and pertussis vaccine [facility] 09-13-1983 measles, mumps and r ubella virus vaccine [facility] 09-13-1983 trivalent poliovirus vaccine, live, oral [facility] 04-13-1982 diphtheria, tetanus toxoids and pertussis vaccine [facility] 1981 diphtheria, tetanus toxoids and pertussis vaccine [facility] 1981 trivalent poliovirus vaccine, live, oral [facility] 1981 diphtheria, tetanus toxoids and pertussis vaccine [facility] 1981 trivalent poliovirus vaccine, live, oral [facility] Payers Date Payer Category Payer Private Health Insurance [id number] 2019 Unknown [id number] 2019 Unknown 2019 Unknown [id number] 2016 Unknown [id number] 2016 Unknown [id number] 1981 Unknown [id number] 1981 Unknown [id number] 2.16. [id number] 1981 Unknown [id number] 2.16. [id number] 1981 Unknown [id number] 2.16. [id number] 1981 Unknown [id number] 2.16. [id number] 1981 Unknown [id number] 2.16. [id number] 1981 Unknown [id number] 2.16. [id number] Private Health Insurance [id number] Unknown [id number] Social History Date Type Detail Facility [facility] if ever smoked [facility] Start: 1980 Sex Assigned At Not on file [facility] Start: 04-18-1999 End: 07-19-2022 Tobacco smoking status NHIS Current every day smoker [facility] Start: 04-18-1999 History of tobacco use Cigarette Smoker [facility] Start: 08-09-2018 End: 02-09-2022 Cigarettes smoked current (pack per day) - Reported [facility] Start: 08-08-2018 End: 02-09-2022 History SDOH Alcohol Frequency 2 [facility] Start: 08-09-2018 End: 02-09-2022 History SDOH Social Connections [facility] Start: 08-09-2018 End: 02-09-2022 History SDOH Social Connections Hinduism 1 [facility] Start: 08-09-2018 End: 02-09-2022 History SDOH Social Connections Living 5 [facility] Start: 08-09-2018 End: 02-09-2022 History SDOH Physical Activity DPW 0 [facility] [facility] Start: 02-23-2019 End: 04-04-2023 Alcohol intake Current drinker of alcohol (finding) [facility] Start: 01-30-2022 End: 07-18-2022 Exposure to SARS-CoV-2 (event) Not sure [facility] Start: 01-11-2020 End: 07-19-2022 Tobacco use and exposure Never used [facility] Tobacco smoking consumption unknown [facility] Start: 02-09-2022 History SDOH Social Connections Living 8 [facility] Start: 12-08-2020 End: 02-09-2022 Humiliation, Afraid, Rape, and Kick questionnaire [HARK] [facility] Within the last year , have you been afraid of your partner or ex-partner? No [facility] Are you now , , , , never or living with a partner? Living with partner [facility] How often to you hav e a drink containing alcohol? Never [facility] How many standard dr inks containing alcohol do you have on a typical day? Patient does not drink [facility] How hard is it for y ou to pay for the very basics like food, housing, medical care, and heating Not very hard [facility] Do you feel stress - tense, restless, nervous, or anxious, or unable to sleep at night because your mind is troubled all the time - these days [OSQ] Rather much [facility] (I/We) worried katya er (my/our) food would run out before (I/we) got money to buy more. Never true [facility] Start: 08-09-2018 Gender identity Identifies as female gender (finding) [facility] Start: 08-09-2018 Sexual orientation Heterosexual (finding) [facility] Clinical Notes 12-08-2020 to 04-04-2023 Assessment & Plan Note - Rachael Linda CNP - 04/04/2023 1:53 PM EDTAssessment & Plan Note - Rachael Linda CNP - 04/04/2023 1:53 PM EDTRachael Linda CNP - 04/04/2023 10:20 AM EDT Note Date & Type Note Facility 04-04-2023 Evaluation + Plan note Associ ated Problem(s): Well adult exam Doing well, denies complaints at this time. Health maintenance updated and reviewed with patient. It is recommended that you complete at least 150 minutes of cardiovascular activity weekly. [facility] 04-04-2023 Miscellaneous Notes Associate d Problem(s): Well adult exam Doing well, denies complaints at this time. Health maintenance updated and reviewed with patient. It is recommended that you complete at least 150 minutes of cardiovascular activity weekly. Associated Problem(s): ADHD I have ordered a 90 day supply of your Adderall. This is a controlled substance which is regulated by the Federal government. To have this medication refilled, you must be seen in the office every 90 days. You are also required to have a Controlled Substance Agreement signed and on file, as well as a urine drug screen - these need to be completed yearly. Continue current medications, Controlled Substance Agreement is on file and an OAR[place] report was checked today, you were given a 3 months supply, follow-up in the office as scheduled. Associated Problem(s): Iron deficiency I have sent an iron supplement into your pharmacy, please take this as ordered. documented in this encounter [facility] 04-04-2023 Evaluation + Plan note Associ ated Problem(s): ADHD I have ordered a 90 day supply of your Adderall. This is a controlled substance which is regulated by the Federal government. To have this medication refilled, you must be seen in the office every 90 days. You are also required to have a Controlled Substance Agreement signed and on file, as well as a urine drug screen - these need to be completed yearly. Continue current medications, Controlled Substance Agreement is on file and an [place]AR[place] report was checked today, you were given a 3 months supply, follow-up in the office as scheduled. [facility] 04-04-2023 Evaluation + Plan note Associ ated Problem(s): Iron deficiency I have sent an iron supplement into your pharmacy, please take this as ordered. [facility] 04-04-2023 History of Presen t illness Narrative Images from the original note were not included. OUTPATIENT WELL ADULT PROGRESS NOTE Frida Combs is a 42 y.o. female and is here for a preventative care visit. Patient's medical and surgical history was updated, as well as family's medical history. Health maintenance was reviewed and updated Patient is a 42 y.o. female with a past medical history of Patient Active Problem List Diagnosis ADHD Hidradenitis suppurativa ANISH (generalized anxiety disorder) Depression Mood disorder ([facility]) Well adult exam Intractable migraine with aura without status migrainosus Vitamin D deficiency Iron deficiency who presents to the office today for a well adult exam. Patient is doing well and denies complaints at this time. 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 Appetite: good Last Dose: yesterday Medication is keep safe within the home where the patient resides with children I have reviewed the patient's labs as well, which show iron and vitamin D deficiency. Medication sent to pharmacy. HPI Health Maintenance reviewed - up to date. OBGYN HX - OB History 3 Para 3 Term 3 AB 0 Living 3 SAB 0 IAB Ectopic Multiple Live Births 3 No LMP recorded. Patient has had a hysterectomy. Patient has periods (heavy, regular, painful): not applicable Sexually active ( control): yes, male Any breast concerns? denies Health Maintenance Due Topic Date Due Wellness Visit 04/05/2023 Health Maintenance Topic Date Due Pap Smear Discontinued Not applicable Mammogram Due Date or Overdue Date Topic Date Due Mammogram 01/24/2024 Last Mammogram completed 01/23/2023, BiRads 0 - ultrasound completed - patient will have ultrasound faxed to office. The following portions of the patient's history were reviewed and updated as appropriate: allergies, current medications, past family history, past medical history, past social history, past surgical history and problem list. Past Medical History: Diagnosis Date ADD (attention deficit disorder) 11 years old Anxiety 2019 Depression 2000 Hidradenitis suppurativa Past Surgical History: Procedure Laterality Date HYSTERECTOMY 2008 Social History Socioeconomic History Marital status: Life Partner Number of children: 3 Tobacco Use Smoking status: Every Day Packs/day: 0.50 Years: 19.00 Additional pack years: 0.00 Total pack years: 9.50 Types: Cigarettes Start date: 04/18/1999 Smokeless tobacco: Never Vaping Use Vaping Use: Never used Substance and Sexual Activity Alcohol use: Yes Drug use: Never Sexual activity: Yes Partners: Male control/protection: Surgical Social Determinants of Health Financial Resource Strain: Low Risk (04/04/2023) Overall Financial Resource Strain (CARDIA) Difficulty of Paying Living Expenses: Not hard at all Food Insecurity: No Food Insecurity (04/04/2023) Hunger Vital Sign Worried About Running Out of Food in the Last Year: Never true Ran Out of Food in the Last Year: Never true Transportation Needs: No Transportation Needs (04/04/2023) PRAPARE - Transportation Lack of Transportation (Medical): No Lack of Transportation (Non-Medical): No Physical Activity: Unknown (02/09/2022) Exercise Vital Sign Days of Exercise per Week: 4 days Stress: Stress Concern Present (02/09/2022) [employer] - Occupational Stress Questionnaire Feeling of Stress : Rather much Social Connections: Moderately Isolated (02/09/2022) Social Connection and Isolation Panel [NHANES] Frequency of Communication with Friends and Family: More than three times a week Frequency of Social Gatherings with Friends and Family: Once a week Attends Gnosticism Services: Never Active Member of Clubs or Organizations: No Attends Club or Organization Meetings: Never Marital Status: Living with partner Housing Stability: Low Risk (02/09/2022) Housing Stability Vital Sign Unable to Pay for Housing in the Last Year: No Number of Places Lived in the Last Year: 1 Unstable Housing in the Last Year: No Family History Problem Relation Age of Onset Diabetes Father Hypertension Father Clotting disorder Sister Lung cancer Maternal Grandfather Cancer Maternal Grandfather Bone cancer Paternal Grandfather Cancer Paternal Grandfather Arthritis Mother Hypertension Mother Mental illness Mother Depression Mother ADD / ADHD Mother Asthma Brother Hypertension Paternal Grandmother Hyperlipidemia Paternal Grandmother Heart disease Paternal Grandmother Hypertension Brother Allergies Allergen Reactions Amoxicillin-Pot Clavulanate Hives and Anaphylaxis Clavulanic Acid Penicillins Past Surgical History: Procedure Laterality Date HYSTERECTOMY 2007 Patient's Medications New Prescriptions POLYSACCHARIDE IRON COMPLEX (IFEREX) 150 MG IRON CAPSULE Take 1 (one) capsule (150 mg total) by mouth 2 (two) times a day . Previous Medications CLONIDINE HCL (CATAPRES) 0.1 MG TABLET Take 1 (one) tablet (0.1 mg total) by mouth nightly . ERGOCALCIFEROL (ERGOCALCIFEROL) 1,250 MCG (50,000 UNIT) CAPSULE Take 1 (one) capsule (50,000 Units total) by mouth once a week . LAMOTRIGINE (LAMICTAL) 100 MG TABLET Take 1 (one) tablet (100 mg total) by mouth daily . RIMEGEPANT (NURTEC ODT) 75 MG ODT Dissolve 1 (one) tablet (75 mg total) on top of tongue daily as needed . SERTRALINE (ZOLOFT) 100 MG TABLET Take 1 (one) tablet (100 mg total) by mouth daily . TOPIRAMATE (TOPAMAX) 25 MG TABLET Take 25mg in the AM, and 50mg in the PM . Modified Medications Modified Medication Previous Medication DEXTROAMPHETAMINE-AMPHETAMINE (ADDERALL) 10 MG TABLET dextroamphetamine-amphetamine (ADDERALL) 10 mg tablet Take 1 (one) tablet (10 mg total) by mouth daily Start: 05/02/23. Take 1 (one) tablet (10 mg total) by mouth daily Start: 02/28/23. DEXTROAMPHETAMINE-AMPHETAMINE (ADDERALL) 10 MG TABLET dextroamphetamine-amphetamine (ADDERALL) 10 mg tablet Take 1 (one) tablet (10 mg total) by mouth daily . Take 1 (one) tablet (10 mg total) by mouth daily . DEXTROAMPHETAMINE-AMPHETAMINE (ADDERALL) 30 MG TABLET dextroamphetamine-amphetamine (ADDERALL) 30 mg tablet Take 1 (one) tablet (30 mg total) by mouth 2 (two) times a day Start: 05/30/23. Take 1 (one) tablet (30 mg total) by mouth 2 (two) times a day Start: 03/28/23. DEXTROAMPHETAMINE-AMPHETAMINE (ADDERALL) 30 MG TABLET dextroamphetamine-amphetamine (ADDERALL) 30 mg tablet Take 1 (one) tablet (30 mg total) by mouth 2 (two) times a day Start: 05/02/23. Take 1 (one) tablet (30 mg total) by mouth 2 (two) times a day Start: 02/28/23. DEXTROAMPHETAMINE-AMPHETAMINE (ADDERALL) 30 MG TABLET dextroamphetamine-amphetamine (ADDERALL) 30 mg tablet Take 1 (one) tablet (30 mg total) by mouth 2 (two) times a day . Take 1 (one) tablet (30 mg total) by mouth 2 (two) times a day . Discontinued Medications No medications on file Objective: BP 125/83 (BP Location: Right arm, Patient Position: Sitting, BP Cuff Size: X-large Adult) Pulse (!) 106 Temp 98.1 F (36.7 C) Ht 5' 3 Wt 95.3 kg (210 lb 3.2 oz) SpO2 93% BMI 37.24 kg/m Review of Systems Review of Systems Vitals: 04/04/23 1032 BP: 125/83 BP Location: Right arm Patient Position: Sitting BP Cuff Size: X-large Adult Pulse: (!) 106 Temp: 98.1 F (36.7 C) SpO2: 93% Weight: 95.3 kg (210 lb 3.2 oz) Height: 5' 3 Body mass index is 37.24 kg/m . The 10-year ASCVD risk score (Vandana LOWE, et al., 2019) is: 2.3% Values used to calculate the score: Age: 42 years Sex: Female Is Non- : No Diabetic: No Tobacco smoker: Yes Systolic Blood Pressure: 125 mmHg Is BP treated: No HDL Cholesterol: 43 mg/dL Total Cholesterol: 157 mg/dL Physical Exam Physical Exam Assessment/Plan Problem List Items Addressed This Visit Other ADHD I have ordered a 90 day supply of your Adderall. This is a controlled substance which is regulated by the Federal government. To have this medication refilled, you must be seen in the office every 90 days. You are also required to have a Controlled Substance Agreement signed and on file, as well as a urine drug screen - these need to be completed yearly. Continue current medications, Controlled Substance Agreement is on file and an [place]AR[place] report was checked today, you were given a 3 months supply, follow-up in the office as scheduled. Relevant Medications dextroamphetamine-amphetamine (ADDERALL) 10 mg tablet (Start on 05/02/2023) dextroamphetamine-amphetamine (ADDERALL) 10 mg tablet dextroamphetamine-amphetamine (ADDERALL) 30 mg tablet (Start on 05/30/2023) dextroamphetamine-amphetamine (ADDERALL) 30 mg tablet (Start on 05/02/2023) dextroamphetamine-amphetamine (ADDERALL) 30 mg tablet Well adult exam - Primary Doing well, denies complaints at this time. Health maintenance updated and reviewed with patient. It is recommended that you complete at least 150 minutes of cardiovascular activity weekly. Iron deficiency I have sent an iron supplement into your pharmacy, please take this as ordered. Relevant Medications polysaccharide iron complex (IFEREX) 150 mg iron capsule Goals None Electronically signed by: Rachael Linda C.N.P 04/04/23 1:53 PM General Patient Counseling Given: --Nutrition: Stressed importance of moderation in sodium/caffeine intake, saturated fat and cholesterol, caloric balance, sufficient intake of fresh fruits, vegetables, fiber, calcium, iron, and 1 mg of folate supplement per day (for females capable of ). --Exercise: Stressed the importance of regular exercise. --Substance Abuse: Discussed cessation/primary prevention of tobacco, alcohol, or other drug use --Sexuality: Discussed sexually transmitted diseases, partner selection, use of condoms, avoidance of unintended and contraceptive alternatives. --Dental health: Discussed importance of regular dental visits. --Immunizations reviewed.TDaP due every 10 days, Shingles vaccines recommended after the age of 50, Pneumonia vaccines due after the age of 65. --Discussed benefits of screening mammograms, pap smears, Dexa Scan (screening of osteoporosis) and colonoscopy. documented in this encounter [facility] 10-18-2022 Evaluation + Plan note Associ ated Problem(s): Mood disorder (HCC) I have increased the Lamictal to 75mg daily, please let me know if you develop any side effects from this dose change. [facility] 10-18-2022 Miscellaneous Notes Associate d Problem(s): Mood disorder (HCC) I have increased the Lamictal to 75mg daily, please let me know if you develop any side effects from this dose change. Associated Problem(s): ADHD I have ordered a 90 day supply of your Adderall. This is a controlled substance which is regulated by the [facility] government. To have this medication refilled, you must be seen in the office every 90 days. You are also required to have a Controlled Substance Agreement signed and on file, as well as a urine drug screen - these need to be completed yearly. Continue current medications, Controlled Substance Agreement is on file and an [place]AR[place] report was checked today, you were given a 3 months supply, follow-up in the office as scheduled. documented in this encounter [facility] 10-18-2022 Evaluation + Plan note Associ ated Problem(s): ADHD I have ordered a 90 day supply of your Adderall. This is a controlled substance which is regulated by the Federal government. To have this medication refilled, you must be seen in the office every 90 days. You are also required to have a Controlled Substance Agreement signed and on file, as well as a urine drug screen - these need to be completed yearly. Continue current medications, Controlled Substance Agreement is on file and an OAR[place] report was checked today, you were given a 3 months supply, follow-up in the office as scheduled. [facility] 10-18-2022 History of Presen t illness Narrative VIDEO VISIT PROGRESS NOTE Frida Combs is a 42 y.o. 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 Appetite: good Last Dose: yesterday Medication is keep safe within the home where the patient resides with children Patient states that her mood is improving however, she believes that the Lamictal would help more if it was increased slightly. HPI Health Maintenance Topic Date Due Pneumococcal Vaccine: Ped or At-Risk (1 - PCV) Never done COVID-19 Vaccine (4 - Booster for Pfizer series) 05/27/2021 Mammogram Never done Tetanus: Every 10yrs 02/10/2023 (Originally 06/19/2021) Wellness Visit 04/05/2023 Sequential Influenza Vaccine Completed Hepatitis C Screening Discontinued Pap Smear Discontinued HIV Screening Discontinued The following portions of the patient's history were reviewed and updated as appropriate: allergies, current medications and problem list. Family History Problem Relation Age of Onset Diabetes Father Hypertension Father Clotting disorder Sister Lung cancer Maternal Grandfather Cancer Maternal Grandfather Bone cancer Paternal Grandfather Cancer Paternal Grandfather Arthritis Mother Hypertension Mother Mental illness Mother Depression Mother ADD / ADHD Mother Asthma Brother Hypertension Paternal Grandmother Hyperlipidemia Paternal Grandmother Heart disease Paternal Grandmother Hypertension Brother Social History Socioeconomic History Marital status: Single Number of children: 3 Tobacco Use Smoking status: Every Day Packs/day: 0.50 Years: 19.00 Pack years: 9.50 Types: Cigarettes Start date: 04/18/1999 Smokeless tobacco: Never Vaping Use Vaping status: Never Used Substance and Sexual Activity Alcohol use: Yes Drug use: Never Sexual activity: Yes Partners: Male control/protection: Surgical Social Determinants of Health Financial Resource Strain: Low Risk (02/09/2022) Overall Financial Resource Strain (CARDIA) Difficulty of Paying Living Expenses: Not very hard Food Insecurity: No Food Insecurity (02/09/2022) Hunger Vital Sign Worried About Running Out of Food in the Last Year: Never true Ran Out of Food in the Last Year: Never true Transportation Needs: No Transportation Needs (02/09/2022) PRAPARE - Transportation Lack of Transportation (Medical): No Lack of Transportation (Non-Medical): No Physical Activity: Unknown (02/09/2022) Exercise Vital Sign Days of Exercise per Week: 4 days Stress: Stress Concern Present (02/09/2022) [employer] - Occupational Stress Questionnaire Feeling of Stress : Rather much Social Connections: Moderately Isolated (02/09/2022) Social Connection and Isolation Panel [NHANES] Frequency of Communication with Friends and Family: More than three times a week Frequency of Social Gatherings with Friends and Family: Once a week Attends Gnosticism Services: Never Active Member of Clubs or Organizations: No Attends Club or Organization Meetings: Never Marital Status: Living with partner Housing Stability: Low Risk (02/09/2022) Housing Stability Vital Sign Unable to Pay for Housing in the Last Year: No Number of Places Lived in the Last Year: 1 Unstable Housing in the Last Year: No Past Surgical History: Procedure Laterality Date HYSTERECTOMY 2008 Allergies Allergen Reactions Amoxicillin-Pot Clavulanate Hives and Anaphylaxis Clavulanic Acid Penicillins Patient's Medications New Prescriptions No medications on file Previous Medications CLONIDINE HCL (CATAPRES) 0.1 MG TABLET Clonidine Hcl Active 0.1 MG DAILY July 21, 2019 11:53pm ERGOCALCIFEROL (ERGOCALCIFEROL) 1,250 MCG (50,000 UNIT) CAPSULE Take 1 (one) capsule (50,000 Units total) by mouth once a week . RIMEGEPANT (NURTEC ODT) 75 MG ODT Dissolve 1 (one) tablet (75 mg total) on top of tongue daily as needed . SERTRALINE (ZOLOFT) 25 MG TABLET Take 1 (one) tablet (25 mg total) by mouth daily . TOPIRAMATE (TOPAMAX) 25 MG TABLET Take 25mg in the AM, and 50mg in the PM . Modified Medications Modified Medication Previous Medication DEXTROAMPHETAMINE-AMPHETAMINE (ADDERALL) 10 MG TABLET dextroamphetamine-amphetamine (ADDERALL) 10 mg tablet Take 1 (one) tablet (10 mg total) by mouth daily Start: 11/15/22. Take 1 (one) tablet (10 mg total) by mouth daily . DEXTROAMPHETAMINE-AMPHETAMINE (ADDERALL) 10 MG TABLET dextroamphetamine-amphetamine (ADDERALL) 10 mg tablet Take 1 (one) tablet (10 mg total) by mouth daily . Take 1 (one) tablet (10 mg total) by mouth daily . DEXTROAMPHETAMINE-AMPHETAMINE (ADDERALL) 30 MG TABLET dextroamphetamine-amphetamine (ADDERALL) 30 mg tablet Take 1 (one) tablet (30 mg total) by mouth 2 (two) times a day Start: 12/13/22. Take 1 (one) tablet (30 mg total) by mouth 2 (two) times a day Start: 09/13/22. DEXTROAMPHETAMINE-AMPHETAMINE (ADDERALL) 30 MG TABLET dextroamphetamine-amphetamine (ADDERALL) 30 mg tablet Take 1 (one) tablet (30 mg total) by mouth 2 (two) times a day Start: 11/15/22. Take 1 (one) tablet (30 mg total) by mouth 2 (two) times a day . DEXTROAMPHETAMINE-AMPHETAMINE (ADDERALL) 30 MG TABLET dextroamphetamine-amphetamine (ADDERALL) 30 mg tablet Take 1 (one) tablet (30 mg total) by mouth 2 (two) times a day . Take 1 (one) tablet (30 mg total) by mouth 2 (two) times a day . LAMOTRIGINE (LAMICTAL) 25 MG TABLET lamoTRIgine (LAMICTAL) 25 MG tablet Take 3 (three) tablets (75 mg total) by mouth daily . Take 2 (two) tablets (50 mg total) by mouth daily . Discontinued Medications SPIRONOLACTONE (ALDACTONE) 25 MG TABLET Take 1 (one) tablet (25 mg total) by mouth daily . Review of Systems Review of Systems Constitutional: Negative for activity change, appetite change and fatigue. Respiratory: Negative for cough and shortness of breath. Cardiovascular: Negative for chest pain and palpitations. Neurological: Negative for dizziness, facial asymmetry, light-headedness and headaches. Psychiatric/Behavioral: Negative for agitation. The patient is not nervous/anxious. There were no vitals filed for this visit. There is no height or weight on file to calculate BMI. Physical Exam Physical Exam Constitutional: Appearance: Normal appearance. HENT: Nose: Nose normal. Mouth/Throat: Lips: [place]. Pulmonary: Effort: Pulmonary effort is normal. Musculoskeletal: General: Normal range of motion. Cervical back: Normal range of motion. Neurological: General: No focal deficit present. Mental Status: She is alert and oriented to person, place, and time. Psychiatric: Attention and Perception: Attention and perception normal. Mood and Affect: Mood and affect normal. Speech: Speech normal. Behavior: Behavior normal. Behavior is cooperative. Thought Content: Thought content normal. Cognition and Memory: Cognition and memory normal. Judgment: Judgment normal. OARRS/NARxCHECK Report Received and Assessed: 10/18/2022 Date controlled substance agreement signed: 02/10/2022 Date of last drug screen: 02/10/2022 Functional Assessment: No data found The 10-year ASCVD risk score (Vandana LOWE, et al., 2019) is: 1.7% Values used to calculate the score: Age: 42 years Sex: Female Is Non- : No Diabetic: No Tobacco smoker: Yes Systolic Blood Pressure: 115 mmHg Is BP treated: No HDL Cholesterol: 48 mg/dL Total Cholesterol: 162 mg/dL Assessment/Plan Problem List Items Addressed This Visit Other ADHD I have ordered a 90 day supply of your Adderall. This is a controlled substance which is regulated by the Federal government. To have this medication refilled, you must be seen in the office every 90 days. You are also required to have a Controlled Substance Agreement signed and on file, as well as a urine drug screen - these need to be completed yearly. Continue current medications, Controlled Substance Agreement is on file and an OARRS report was checked today, you were given a 3 months supply, follow-up in the office as scheduled. Relevant Medications dextroamphetamine-amphetamine (ADDERALL) 10 mg tablet (Start on 11/15/2022) dextroamphetamine-amphetamine (ADDERALL) 10 mg tablet dextroamphetamine-amphetamine (ADDERALL) 30 mg tablet (Start on 12/13/2022) dextroamphetamine-amphetamine (ADDERALL) 30 mg tablet (Start on 11/15/2022) dextroamphetamine-amphetamine (ADDERALL) 30 mg tablet Mood disorder (HCC) I have increased the Lamictal to 75mg daily, please let me know if you develop any side effects from this dose change. Relevant Medications dextroamphetamine-amphetamine (ADDERALL) 10 mg tablet (Start on 11/15/2022) dextroamphetamine-amphetamine (ADDERALL) 10 mg tablet dextroamphetamine-amphetamine (ADDERALL) 30 mg tablet (Start on 12/13/2022) dextroamphetamine-amphetamine (ADDERALL) 30 mg tablet (Start on 11/15/2022) dextroamphetamine-amphetamine (ADDERALL) 30 mg tablet lamoTRIgine (LAMICTAL) 25 MG tablet Goals None Video Visit [facility] [address] [facility] [address] [place] [id number] Via Real-time Synchronous Audiovisual [facility] 10/18/2022 Rachael Linda CNP Provider Location: [facility] PCP, or provider's home Patient Location Scoring Machine Operator: None Patient Location: Work Patient: Frida Combs Date of : 1980 (42 y.o. female) PCP: Rachael Linda CNP Video Visit Consent Statement: I discussed risks, benefits and alternatives of a video visit telemedicine consultation with the patient (and any accompanying persons) including the risks that the patient s personal health details and medical records will be discussed over real-time, synchronous, interactive video/audio/telecommunication technology, the visit will not be recorded without the express consent of both the provider and the patient, and that there are inherent diagnostic limitations compared to [id number] evaluations. We elected to proceed with the video visit telemedicine consultation. For any new medications prescribed today, patient was educated about indications for the medication, how to take the medication and potential side effects of the medications. documented in this encounter [facility] 07-25-2022 Evaluation + Plan note Associ ated Problem(s): Mood disorder (HCC) As discussed within your appointment today, you are doing well on Lamictal, and Zoloft. I would like you to continue to take your medication(s) as ordered. If medication refills are needed, they have been sent to your pharmacy. [facility] 07-25-2022 Evaluation + Plan note Associ ated Problem(s): ADHD I have ordered a 90 day supply of your Adderall. This is a controlled substance which is regulated by the Federal government. To have this medication refilled, you must be seen in the office every 90 days. You are also required to have a Controlled Substance Agreement signed and on file, as well as a urine drug screen - these need to be completed yearly. Continue current medications, Controlled Substance Agreement is on file and an OARRS report was checked today, you were given a 3 months supply, follow-up in the office as scheduled. [facility] 07-25-2022 Evaluation + Plan note Associ ated Problem(s): Intractable migraine with aura without status migrainosus As discussed within your appointment today, you are doing well on Topamax. I would like you to continue to take your medication(s) as ordered. If medication refills are needed, they have been sent to your pharmacy. [facility] 07-25-2022 Miscellaneous Notes Associate d Problem(s): Mood disorder (HCC) As discussed within your appointment today, you are doing well on Lamictal, and Zoloft. I would like you to continue to take your medication(s) as ordered. If medication refills are needed, they have been sent to your pharmacy. Associated Problem(s): ADHD I have ordered a 90 day supply of your Adderall. This is a controlled substance which is regulated by the Federal government. To have this medication refilled, you must be seen in the office every 90 days. You are also required to have a Controlled Substance Agreement signed and on file, as well as a urine drug screen - these need to be completed yearly. Continue current medications, Controlled Substance Agreement is on file and an OARRS report was checked today, you were given a 3 months supply, follow-up in the office as scheduled. Associated Problem(s): Intractable migraine with aura without status migrainosus As discussed within your appointment today, you are doing well on Topamax. I would like you to continue to take your medication(s) as ordered. If medication refills are needed, they have been sent to your pharmacy. documented in this encounter [facility] 07-19-2022 History of Presen t illness Narrative OFFICE VISIT PROGRESS NOTE Frida Combs is a 41 y.o. female with a past medical history of Patient Active Problem List Diagnosis ADHD Hidradenitis suppurativa ANISH (generalized anxiety disorder) Depression Mood disorder (HCC) Well adult exam Intractable migraine with aura without status migrainosus Screening mammogram for breast cancer Vitamin D deficiency Screening for thyroid disorder Encounter for lipid screening for cardiovascular disease Iron deficiency who presents to the office today for a follow up on ADHD. Patient is doing well and denies complaints at this time. 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 Appetite: good Last Dose: yesterday Medication is keep safe within the home where the patient resides with children Migraine This is a chronic problem. The current episode started more than 1 year ago. The problem occurs intermittently. The problem has been waxing and waning. The pain is located in the Left unilateral region. The pain does not radiate. The pain quality is similar to prior headaches. The quality of the pain is described as aching, dull, pulsating, stabbing and shooting. The pain is severe. Associated symptoms include eye pain, nausea, phonophobia and photophobia. Pertinent negatives include no coughing or dizziness. The symptoms are aggravated by emotional stress. She has tried triptans for the symptoms. The treatment provided mild relief. Her past medical history is significant for migraine headaches. Depression Visit Type: follow-up Patient presents with the following symptoms: depressed mood, fatigue and irritability. Patient is not experiencing: feelings of hopelessness, feelings of worthlessness, nervousness/anxiety, palpitations and shortness of breath. Frequency of symptoms: occasionally Severity: mild Sleep quality: fair Nighttime awakenings: occasional Compliance with medications: 76-100% Health Maintenance Topic Date Due Pneumococcal Vaccine: Ped or At-Risk (1 - PCV) Never done COVID-19 Vaccine (4 - Booster for Pfizer series) 05/27/2021 Mammogram Never done Tetanus: Every 10yrs 02/10/2023 (Originally 06/19/2021) Wellness Visit 04/05/2023 Sequential Influenza Vaccine Completed Hepatitis C Screening Discontinued Pap Smear Discontinued HIV Screening Discontinued The following portions of the patient's history were reviewed and updated as appropriate: allergies, current medications and problem list. Family History Problem Relation Age of Onset Diabetes Father Hypertension Father Clotting disorder Sister Lung cancer Maternal Grandfather Cancer Maternal Grandfather Bone cancer Paternal Grandfather Cancer Paternal Grandfather Arthritis Mother Hypertension Mother Mental illness Mother Depression Mother ADD / ADHD Mother Asthma Brother Hypertension Paternal Grandmother Hyperlipidemia Paternal Grandmother Heart disease Paternal Grandmother Hypertension Brother Social History Socioeconomic History Marital status: Single Number of children: 3 Tobacco Use Smoking status: Every Day Packs/day: 0.50 Years: 19.00 Pack years: 9.50 Types: Cigarettes Start date: 04/18/1999 Smokeless tobacco: Never Vaping Use Vaping Use: Never used Substance and Sexual Activity Alcohol use: Yes Drug use: Never Sexual activity: Yes Partners: Male control/protection: Surgical Social Determinants of Health Financial Resource Strain: Low Risk Difficulty of Paying Living Expenses: Not very hard Food Insecurity: No Food Insecurity Worried About Running Out of Food in the Last Year: Never true Ran Out of Food in the Last Year: Never true Transportation Needs: No Transportation Needs Lack of Transportation (Medical): No Lack of Transportation (Non-Medical): No Physical Activity: Unknown Days of Exercise per Week: 4 days Stress: Stress Concern Present Feeling of Stress : Rather much Social Connections: Moderately Isolated Frequency of Communication with Friends and Family: More than three times a week Frequency of Social Gatherings with Friends and Family: Once a week Attends Gnosticism Services: Never Active Member of Clubs or Organizations: No Attends Club or Organization Meetings: Never Marital Status: Living with partner Housing Stability: Low Risk Unable to Pay for Housing in the Last Year: No Number of Places Lived in the Last Year: 1 Unstable Housing in the Last Year: No Past Surgical History: Procedure Laterality Date HYSTERECTOMY 2008 Allergies Allergen Reactions Amoxicillin-Pot Clavulanate Hives and Anaphylaxis Clavulanic Acid Penicillins Patient's Medications New Prescriptions SPIRONOLACTONE (ALDACTONE) 25 MG TABLET Take 1 (one) tablet (25 mg total) by mouth daily . Previous Medications CLONIDINE HCL (CATAPRES) 0.1 MG TABLET Clonidine Hcl Active 0.1 MG DAILY July 21, 2019 11:53pm ERGOCALCIFEROL (ERGOCALCIFEROL) 1,250 MCG (50,000 UNIT) CAPSULE Take 1 (one) capsule (50,000 Units total) by mouth once a week . RIMEGEPANT (NURTEC ODT) 75 MG ODT Dissolve 1 (one) tablet (75 mg total) on top of tongue daily as needed . Modified Medications Modified Medication Previous Medication DEXTROAMPHETAMINE-AMPHETAMINE (ADDERALL) 10 MG TABLET dextroamphetamine-amphetamine (ADDERALL) 10 mg tablet Take 1 (one) tablet (10 mg total) by mouth daily Start: 08/16/22. Take 1 (one) tablet (10 mg total) by mouth daily . DEXTROAMPHETAMINE-AMPHETAMINE (ADDERALL) 10 MG TABLET dextroamphetamine-amphetamine (ADDERALL) 10 mg tablet Take 1 (one) tablet (10 mg total) by mouth daily . Take 1 (one) tablet (10 mg total) by mouth daily . DEXTROAMPHETAMINE-AMPHETAMINE (ADDERALL) 30 MG TABLET dextroamphetamine-amphetamine (ADDERALL) 30 mg tablet Take 1 (one) tablet (30 mg total) by mouth 2 (two) times a day Start: 09/13/22. Take 1 (one) tablet (30 mg total) by mouth 2 (two) times a day Start: 03/10/22. DEXTROAMPHETAMINE-AMPHETAMINE (ADDERALL) 30 MG TABLET dextroamphetamine-amphetamine (ADDERALL) 30 mg tablet Take 1 (one) tablet (30 mg total) by mouth 2 (two) times a day Start: 08/16/22. Take 1 (one) tablet (30 mg total) by mouth 2 (two) times a day . DEXTROAMPHETAMINE-AMPHETAMINE (ADDERALL) 30 MG TABLET dextroamphetamine-amphetamine (ADDERALL) 30 mg tablet Take 1 (one) tablet (30 mg total) by mouth 2 (two) times a day . Take 1 (one) tablet (30 mg total) by mouth 2 (two) times a day . LAMOTRIGINE (LAMICTAL) 25 MG TABLET lamoTRIgine (LAMICTAL) 25 MG tablet Take 2 (two) tablets (50 mg total) by mouth daily . Take 1 (one) tablet (25 mg total) by mouth daily . SERTRALINE (ZOLOFT) 25 MG TABLET sertraline (ZOLOFT) 25 MG tablet Take 1 (one) tablet (25 mg total) by mouth daily . Take 1 (one) tablet (25 mg total) by mouth daily . TOPIRAMATE (TOPAMAX) 25 MG TABLET topiramate (TOPAMAX) 25 MG tablet Take 25mg in the AM, and 50mg in the PM . Take 1 (one) tablet (25 mg total) by mouth every morning for 7 days, THEN 2 (two) tablets (50 mg total) at bedtime. Discontinued Medications CLINDAMYCIN (CLEOCIN) 300 MG CAPSULE Take 1 (one) capsule (300 mg total) by mouth 3 (three) times a day . FLUCONAZOLE (DIFLUCAN) 150 MG TABLET Take 1 (one) tablet (150 mg total) by mouth every other day . Review of Systems Review of Systems Constitutional: Positive for irritability. Negative for activity change, appetite change and fatigue. Eyes: Positive for photophobia and pain. Respiratory: Negative for cough and shortness of breath. Cardiovascular: Negative for chest pain and palpitations. Gastrointestinal: Positive for nausea. Neurological: Negative for dizziness, facial asymmetry, light-headedness and headaches. Psychiatric/Behavioral: Negative for agitation. The patient is not nervous/anxious. Vitals: 07/19/22 1501 BP: 115/80 BP Location: Left arm Patient Position: Sitting BP Cuff Size: X-large Adult Pulse: (!) 106 Resp: 16 Temp: 98.3 F (36.8 C) TempSrc: Temporal SpO2: 98% Weight: 96.7 kg (213 lb 1.6 oz) Height: 5' 3 BP Readings from Last 3 Encounters: 07/19/22 115/80 04/05/22 139/66 02/10/22 (P) 113/77 Wt Readings from Last 3 Encounters: 07/19/22 96.7 kg (213 lb 1.6 oz) 04/05/22 98.9 kg (218 lb) 02/10/22 (P) 101.3 kg (223 lb 4.8 oz) Body mass index is 37.75 kg/m . Physical Exam Physical Exam Vitals reviewed. Constitutional: Appearance: Normal appearance. She is well-developed. HENT: Head: Normocephalic. Right Ear: External ear normal. Left Ear: External ear normal. Nose: Nose normal. Eyes: General: Lids are normal. Cardiovascular: Rate and Rhythm: Normal rate and regular rhythm. Heart sounds: Normal heart sounds. Pulmonary: Effort: Pulmonary effort is normal. Breath sounds: Normal breath sounds. Musculoskeletal: General: Normal range of motion. Skin: General: Skin is warm and dry. Neurological: General: No focal deficit present. Mental Status: She is alert and oriented to person, place, and time. Coordination: Coordination is intact. Gait: Gait is intact. Psychiatric: Attention and Perception: Attention normal. Mood and Affect: Mood normal. Speech: Speech normal. Behavior: Behavior normal. Behavior is cooperative. Thought Content: Thought content normal. Cognition and Memory: Cognition normal. Judgment: Judgment normal. OARRS/NARxCHECK Report Received and Assessed: 06/06/2021 Date controlled substance agreement signed: 06/01/2020 Date of last drug screen: 06/01/2020 Functional Assessment: No data found The 10-year ASCVD risk score (Vandana LOWE, et al., 2019) is: 1.8% Values used to calculate the score: Age: 41 years Sex: Female Is Non- : No Diabetic: No Tobacco smoker: Yes Systolic Blood Pressure: 115 mmHg Is BP treated: No HDL Cholesterol: 44 mg/dL Total Cholesterol: 154 mg/dL Assessment/Plan Problem List Items Addressed This Visit Cardiovascular and Mediastinum Intractable migraine with aura without status migrainosus As discussed within your appointment today, you are doing well on Topamax. I would like you to continue to take your medication(s) as ordered. If medication refills are needed, they have been sent to your pharmacy. Relevant Medications lamoTRIgine (LAMICTAL) 25 MG tablet topiramate (TOPAMAX) 25 MG tablet Other ADHD I have ordered a 90 day supply of your Adderall. This is a controlled substance which is regulated by the Federal government. To have this medication refilled, you must be seen in the office every 90 days. You are also required to have a Controlled Substance Agreement signed and on file, as well as a urine drug screen - these need to be completed yearly. Continue current medications, Controlled Substance Agreement is on file and an OARRS report was checked today, you were given a 3 months supply, follow-up in the office as scheduled. Relevant Medications sertraline (ZOLOFT) 25 MG tablet dextroamphetamine-amphetamine (ADDERALL) 30 mg tablet (Start on 09/13/2022) dextroamphetamine-amphetamine (ADDERALL) 30 mg tablet (Start on 08/16/2022) dextroamphetamine-amphetamine (ADDERALL) 30 mg tablet dextroamphetamine-amphetamine (ADDERALL) 10 mg tablet (Start on 08/16/2022) dextroamphetamine-amphetamine (ADDERALL) 10 mg tablet Depression Relevant Medications sertraline (ZOLOFT) 25 MG tablet dextroamphetamine-amphetamine (ADDERALL) 30 mg tablet (Start on 09/13/2022) dextroamphetamine-amphetamine (ADDERALL) 30 mg tablet (Start on 08/16/2022) dextroamphetamine-amphetamine (ADDERALL) 30 mg tablet dextroamphetamine-amphetamine (ADDERALL) 10 mg tablet (Start on 08/16/2022) dextroamphetamine-amphetamine (ADDERALL) 10 mg tablet Mood disorder (HCC) - Primary As discussed within your appointment today, you are doing well on Lamictal, and Zoloft. I would like you to continue to take your medication(s) as ordered. If medication refills are needed, they have been sent to your pharmacy. Relevant Medications lamoTRIgine (LAMICTAL) 25 MG tablet sertraline (ZOLOFT) 25 MG tablet dextroamphetamine-amphetamine (ADDERALL) 30 mg tablet (Start on 09/13/2022) dextroamphetamine-amphetamine (ADDERALL) 30 mg tablet (Start on 08/16/2022) dextroamphetamine-amphetamine (ADDERALL) 30 mg tablet dextroamphetamine-amphetamine (ADDERALL) 10 mg tablet (Start on 08/16/2022) dextroamphetamine-amphetamine (ADDERALL) 10 mg tablet Well adult exam Relevant Orders Comprehensive Metabolic Panel CBC and Differential Lipid Panel TSH T4, Free Vitamin D, Total, 25-OH Iron Study with Ferritin Vitamin D deficiency Relevant Orders Vitamin D, Total, 25-OH Screening for thyroid disorder Relevant Orders TSH T4, Free Encounter for lipid screening for cardiovascular disease Relevant Orders Lipid Panel Iron deficiency Relevant Orders Iron Study with Ferritin Goals None For any new medications prescribed today, patient was educated about indications for the medication, how to take the medication and potential side effects of the medications. documented in this encounter [facility] 06-28-2022 Telephone encounter Note Form atting of this note might be different from the original. Please call the patient to schedule an appointment. She would like one in Jul. Thank you [facility] 06-28-2022 Miscellaneous Notes Formattin g of this note might be different from the original. Please call the patient to schedule an appointment. She would like one in Jul. Thank you documented in this encounter [facility] 02-23-2022 Evaluation + Plan note Associ ated Problem(s): ADHD I have ordered a 90 day supply of your Adderall. This is a controlled substance which is regulated by the Federal government. To have this medication refilled, you must be seen in the office every 90 days. You are also required to have a Controlled Substance Agreement signed and on file, as well as a urine drug screen - these need to be completed yearly. Continue current medications, Controlled Substance Agreement is on file and an OARRS report was checked today, you were given a 3 months supply, follow-up in the office as scheduled. [facility] 02-23-2022 Miscellaneous Notes Associate d Problem(s): ADHD I have ordered a 90 day supply of your Adderall. This is a controlled substance which is regulated by the Federal government. To have this medication refilled, you must be seen in the office every 90 days. You are also required to have a Controlled Substance Agreement signed and on file, as well as a urine drug screen - these need to be completed yearly. Continue current medications, Controlled Substance Agreement is on file and an OARRS report was checked today, you were given a 3 months supply, follow-up in the office as scheduled. Associated Problem(s): Depression I would like you to start taking Zoloft. When you start this medication stop taking the Prozac. Please contact the office if you do not notice any improvement in your mood. Associated Problem(s): Screening mammogram for breast cancer It is time to get your Mammogram done. Please call and schedule your appointment. [facility] ( [facility]) [address] [place], [place] [id number] Associated Problem(s): Intractable migraine with aura without status migrainosus With your worsening migraines, I would like you to start taking topamax as ordered, and Nurtec as needed. It is my hope that with these two medications, we can gain control over your migraines. documented in this encounter [facility] 02-23-2022 Evaluation + Plan note Associ ated Problem(s): Depression I would like you to start taking Zoloft. When you start this medication stop taking the Prozac. Please contact the office if you do not notice any improvement in your mood. [facility] 02-23-2022 Evaluation + Plan note Associ ated Problem(s): Screening mammogram for breast cancer It is time to get your Mammogram done. Please call and schedule your appointment. [facility] ( [facility]) [address] [place] [id number] [facility] 02-23-2022 Evaluation + Plan note Associ ated Problem(s): Intractable migraine with aura without status migrainosus With your worsening migraines, I would like you to start taking topamax as ordered, and Nurtec as needed. It is my hope that with these two medications, we can gain control over your migraines. [facility] 02-23-2022 History of Presen t illness Narrative OFFICE VISIT PROGRESS NOTE Frida Combs is a 41 y.o. female with a past medical history of Patient Active Problem List Diagnosis ADHD Hidradenitis suppurativa ANISH (generalized anxiety disorder) Depression Mood disorder (HCC) Intractable migraine with aura without status migrainosus Screening mammogram for breast cancer who presents to the office today for a follow up on ADHD. Patient is doing well and denies complaints at this time. 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 Appetite: good Last Dose: yesterday Medication is keep safe within the home where the patient resides with children Migraine This is a chronic problem. The current episode started more than 1 year ago. The problem occurs intermittently. The problem has been waxing and waning. The pain is located in the Left unilateral region. The pain does not radiate. The pain quality is similar to prior headaches. The quality of the pain is described as aching, dull, pulsating, stabbing and shooting. The pain is severe. Associated symptoms include eye pain, nausea, phonophobia and photophobia. Pertinent negatives include no coughing or dizziness. The symptoms are aggravated by emotional stress. She has tried triptans for the symptoms. The treatment provided mild relief. Her past medical history is significant for migraine headaches. Depression Visit Type: follow-up Patient presents with the following symptoms: depressed mood, fatigue and irritability. Patient is not experiencing: feelings of hopelessness, feelings of worthlessness, nervousness/anxiety, palpitations and shortness of breath. Frequency of symptoms: occasionally Severity: mild Sleep quality: fair Nighttime awakenings: occasional Compliance with medications: 76-100% Health Maintenance Topic Date Due Mammogram Never done Sequential Influenza Vaccine (1) 02/16/2022 Pneumococcal Vaccine: Ped or At-Risk (1 - PCV) 04/15/2022 (Originally 08/19/1987) Tetanus: Every 10yrs 02/10/2023 (Originally 06/19/2021) Wellness Visit 04/15/2022 COVID-19 Vaccine Completed Hepatitis C Screening Discontinued Pap Smear Discontinued HIV Screening Discontinued The following portions of the patient's history were reviewed and updated as appropriate: allergies, current medications and problem list. Family History Problem Relation Age of Onset Diabetes Father Hypertension Father Clotting disorder Sister Lung cancer Maternal Grandfather Bone cancer Paternal Grandfather Arthritis Mother Hypertension Mother Mental illness Mother Depression Mother Asthma Brother Hypertension Paternal Grandmother Hyperlipidemia Paternal Grandmother Heart disease Paternal Grandmother Hypertension Brother Social History Socioeconomic History Marital status: Life Partner Number of children: 3 Tobacco Use Smoking status: Every Day Packs/day: 0.50 Years: 19.00 Pack years: 9.50 Types: Cigarettes Start date: 04/18/1999 Smokeless tobacco: Never Vaping Use Vaping Use: Never used Substance and Sexual Activity Alcohol use: Yes Drug use: Never Sexual activity: Yes Partners: Male control/protection: Surgical Social Determinants of Health Financial Resource Strain: Low Risk Difficulty of Paying Living Expenses: Not very hard Food Insecurity: No Food Insecurity Worried About Running Out of Food in the Last Year: Never true Ran Out of Food in the Last Year: Never true Transportation Needs: No Transportation Needs Lack of Transportation (Medical): No Lack of Transportation (Non-Medical): No Physical Activity: Unknown Days of Exercise per Week: 4 days Stress: Stress Concern Present Feeling of Stress : Rather much Social Connections: Moderately Isolated Frequency of Communication with Friends and Family: More than three times a week Frequency of Social Gatherings with Friends and Family: Once a week Attends Gnosticism Services: Never Active Member of Clubs or Organizations: No Attends Club or Organization Meetings: Never Marital Status: Living with partner Housing Stability: Low Risk Unable to Pay for Housing in the Last Year: No Number of Places Lived in the Last Year: 1 Unstable Housing in the Last Year: No Past Surgical History: Procedure Laterality Date HYSTERECTOMY 2008 Allergies Allergen Reactions Amoxicillin-Pot Clavulanate Hives and Anaphylaxis Clavulanic Acid Penicillins Patient's Medications New Prescriptions RIMEGEPANT (NURTEC ODT) 75 MG ODT Dissolve 1 (one) tablet (75 mg total) on top of tongue daily as needed . SERTRALINE (ZOLOFT) 25 MG TABLET Take 1 (one) tablet (25 mg total) by mouth daily . TOPIRAMATE (TOPAMAX) 25 MG TABLET Take 1 (one) tablet (25 mg total) by mouth daily for 7 days, THEN 1 (one) tablet (25 mg total) 2 (two) times a day. Previous Medications CLONIDINE HCL (CATAPRES) 0.1 MG TABLET Clonidine Hcl Active 0.1 MG DAILY July 21, 2019 11:53pm ERGOCALCIFEROL (ERGOCALCIFEROL) 1,250 MCG (50,000 UNIT) CAPSULE Take 1 (one) capsule (50,000 Units total) by mouth once a week . POLYSACCHARIDE IRON COMPLEX (NIFEREX) 150 MG IRON CAPSULE Take 1 (one) capsule (150 mg total) by mouth 2 (two) times a day . Modified Medications Modified Medication Previous Medication DEXTROAMPHETAMINE-AMPHETAMINE (ADDERALL) 10 MG TABLET dextroamphetamine-amphetamine (ADDERALL) 10 mg tablet Take 1 (one) tablet (10 mg total) by mouth daily Start: 03/10/22. Take 1 (one) tablet (10 mg total) by mouth daily Start: 10/12/21. DEXTROAMPHETAMINE-AMPHETAMINE (ADDERALL) 10 MG TABLET dextroamphetamine-amphetamine (ADDERALL) 10 mg tablet Take 1 (one) tablet (10 mg total) by mouth daily . Take 1 (one) tablet (10 mg total) by mouth daily . DEXTROAMPHETAMINE-AMPHETAMINE (ADDERALL) 30 MG TABLET dextroamphetamine-amphetamine (ADDERALL) 30 mg tablet Take 1 (one) tablet (30 mg total) by mouth 2 (two) times a day Start: 04/07/22. Take 1 (one) tablet (30 mg total) by mouth 2 (two) times a day Start: 11/09/21. DEXTROAMPHETAMINE-AMPHETAMINE (ADDERALL) 30 MG TABLET dextroamphetamine-amphetamine (ADDERALL) 30 mg tablet Take 1 (one) tablet (30 mg total) by mouth 2 (two) times a day Start: 03/10/22. Take 1 (one) tablet (30 mg total) by mouth 2 (two) times a day . DEXTROAMPHETAMINE-AMPHETAMINE (ADDERALL) 30 MG TABLET dextroamphetamine-amphetamine (ADDERALL) 30 mg tablet Take 1 (one) tablet (30 mg total) by mouth 2 (two) times a day . Take 1 (one) tablet (30 mg total) by mouth 2 (two) times a day Start: 10/12/21. Discontinued Medications BACLOFEN (LIORESAL) 10 MG TABLET Take 10 mg by mouth 2 (two) times a day . FLUOXETINE (PROZAC) 40 MG CAPSULE Take 1 (one) capsule (40 mg total) by mouth daily . MELOXICAM (MOBIC) 15 MG TABLET take 1 tablet by mouth daily WITH FOOD IN THE MORNING Review of Systems Review of Systems Constitutional: Positive for irritability. Negative for activity change, appetite change and fatigue. Eyes: Positive for photophobia and pain. Respiratory: Negative for cough and shortness of breath. Cardiovascular: Negative for chest pain and palpitations. Gastrointestinal: Positive for nausea. Neurological: Negative for dizziness, facial asymmetry, light-headedness and headaches. Psychiatric/Behavioral: Negative for agitation. The patient is not nervous/anxious. Vitals: 02/10/22 0822 BP: (P) 113/77 BP Location: (P) Right arm Patient Position: (P) Sitting BP Cuff Size: (P) X-large Adult Pulse: (P) 93 Resp: (P) 16 Temp: (P) 98.6 F (37 C) TempSrc: (P) Temporal SpO2: (P) 97% Weight: (P) 101.3 kg (223 lb 4.8 oz) Height: (P) 5' 3 BP Readings from Last 3 Encounters: 02/10/22 (P) 113/77 04/15/21 117/82 12/08/20 128/85 Wt Readings from Last 3 Encounters: 02/10/22 (P) 101.3 kg (223 lb 4.8 oz) 04/15/21 98.8 kg (217 lb 14.4 oz) 12/08/20 98.1 kg (216 lb 3.2 oz) Body mass index is 39.56 kg/m (pended). Physical Exam Physical Exam Vitals reviewed. Constitutional: Appearance: Normal appearance. She is well-developed. HENT: Head: Normocephalic. Right Ear: External ear normal. Left Ear: External ear normal. Nose: Nose normal. Eyes: General: Lids are normal. Cardiovascular: Rate and Rhythm: Normal rate and regular rhythm. Heart sounds: Normal heart sounds. Pulmonary: Effort: Pulmonary effort is normal. Breath sounds: Normal breath sounds. Musculoskeletal: General: Normal range of motion. Skin: General: Skin is warm and dry. Neurological: General: No focal deficit present. Mental Status: She is alert and oriented to person, place, and time. Coordination: Coordination is intact. Gait: Gait is intact. Psychiatric: Attention and Perception: Attention normal. Mood and Affect: Mood normal. Speech: Speech normal. Behavior: Behavior normal. Behavior is cooperative. Thought Content: Thought content normal. Cognition and Memory: Cognition normal. Judgment: Judgment normal. OARRS/NARxCHECK Report Received and Assessed: 06/06/2021 Date controlled substance agreement signed: 06/01/2020 Date of last drug screen: 06/01/2020 Functional Assessment: No data found The 10-year ASCVD risk score (Vandana LOWE, et al., 2019) is: 1.7% Values used to calculate the score: Age: 41 years Sex: Female Is Non- : No Diabetic: No Tobacco smoker: Yes Systolic Blood Pressure: 113 mmHg Is BP treated: No HDL Cholesterol: 44 mg/dL Total Cholesterol: 154 mg/dL Assessment/Plan Problem List Items Addressed This Visit Cardiovascular and Mediastinum Intractable migraine with aura without status migrainosus With your worsening migraines, I would like you to start taking topamax as ordered, and Nurtec as needed. It is my hope that with these two medications, we can gain control over your migraines. Relevant Medications topiramate (TOPAMAX) 25 MG tablet rimegepant (Nurtec ODT) 75 mg ODT Other ADHD I have ordered a 90 day supply of your Adderall. This is a controlled substance which is regulated by the Federal government. To have this medication refilled, you must be seen in the office every 90 days. You are also required to have a Controlled Substance Agreement signed and on file, as well as a urine drug screen - these need to be completed yearly. Continue current medications, Controlled Substance Agreement is on file and an OARRS report was checked today, you were given a 3 months supply, follow-up in the office as scheduled. Relevant Medications dextroamphetamine-amphetamine (ADDERALL) 10 mg tablet (Start on 03/10/2022) dextroamphetamine-amphetamine (ADDERALL) 10 mg tablet dextroamphetamine-amphetamine (ADDERALL) 30 mg tablet (Start on 04/07/2022) dextroamphetamine-amphetamine (ADDERALL) 30 mg tablet (Start on 03/10/2022) dextroamphetamine-amphetamine (ADDERALL) 30 mg tablet sertraline (ZOLOFT) 25 MG tablet Depression - Primary I would like you to start taking Zoloft. When you start this medication stop taking the Prozac. Please contact the office if you do not notice any improvement in your mood. Relevant Medications dextroamphetamine-amphetamine (ADDERALL) 10 mg tablet (Start on 03/10/2022) dextroamphetamine-amphetamine (ADDERALL) 10 mg tablet dextroamphetamine-amphetamine (ADDERALL) 30 mg tablet (Start on 04/07/2022) dextroamphetamine-amphetamine (ADDERALL) 30 mg tablet (Start on 03/10/2022) dextroamphetamine-amphetamine (ADDERALL) 30 mg tablet sertraline (ZOLOFT) 25 MG tablet Screening mammogram for breast cancer It is time to get your Mammogram done. Please call and schedule your appointment. [facility] ( [facility]) [address] [place], [place] [id number] Relevant Orders Mammography Screening Ortiz Bilateral Goals None For any new medications prescribed today, patient was educated about indications for the medication, how to take the medication and potential side effects of the medications. documented in this encounter [facility] 06-21-2021 Instructions Rachael Linda CNP - 06/21/2021 9:47 PM EST Images from the original note were not included. Learning About Attention Deficit Hyperactivity Disorder (ADHD) in Adults What is ADHD? Attention deficit hyperactivity disorder (ADHD) is a condition in which people have a hard time paying attention. Adults with ADHD also may be more active than normal. They tend to act without thinking. ADHD may make it harder for them to focus, get organized, and finish tasks. ADHD most often starts in childhood and lasts into adulthood. Many adults don't know that they have ADHD until their children are diagnosed. Then they begin to see their own symptoms. Doctors don't know what causes ADHD. But it tends to run in families. What are the symptoms? The most common types of ADHD symptoms in adults are attention problems and hyperactivity. Attention problems Adults with ADHD often find it hard to: Finish tasks that don't interest them or aren't easy. But they may become obsessed with activities that they find interesting and enjoy. Keep relationships. Focus their attention on conversations, reading materials, or jobs. They may change jobs a lot. Remember things. They may misplace or lose things. Pay attention. They are easily distracted. They find it hard to focus on one task. Think before they act. They may make quick decisions. They may act before they think about the effect of their actions. Hyperactivity Adults with ADHD may: Fidget. They may swing their legs, shift in their seats, or tap their fingers. Move around a lot. They may feel revved up or on the go. They may not be able to slow down until they are very tired. Find it hard to relax. They may feel restless and find it hard to do quiet things like read or watch TV. How does ADHD affect daily life? ADHD in adults may affect: Job performance. They may find it hard to organize their work, manage their time, and focus on one task at a time. They may forget, misplace, or lose things. They may quit their jobs out of boredom. Relationships. Adults with ADHD may find it hard to focus their attention on conversations. It is hard for them to read the behavior and moods of others and express their own feelings. Temper. They may get easily frustrated. This often can make it harder for them to deal with stress. These adults may overreact and have a short, quick temper. The ability to solve problems. Adults who have a hard time waiting for things they want may act before they think about the effect of their actions. They may take part in risky behaviors. These include unprotected sex, unsafe driving, alcohol and drug use, or unwise business ventures. How is ADHD treated? ADHD can be treated with medicines, behavior training, or counseling. Or it may be a combination of these treatments. Medicines Stimulant medicines are most often used to treat ADHD. These may include: Amphetamines. (Examples are Adderall and Dexedrine). Methylphenidate. (Examples are Concerta, Daytrana, Focalin, Metadate, and Ritalin). Other medicines that may be used are: Atomoxetine. This includes Strattera, a nonstimulant medicine for ADHD. Antihypertensives. These include clonidine (such as Catapres) and guanfacine (such as Tenex). Antidepressants. These include bupropion (Wellbutrin). Behavior training Behavior training can help adults with ADHD learn how to: Get organized. A daily organizer or land use planner can help these adults organize their daily tasks. They can write down appointments and other things they need to remember. Decrease distractions. They can set up their work or home environment so that there are fewer things that will distract them. They may find using headphones or a white noise machine helpful. College students can arrange a quiet living situation. They may need a single dorm room. Work on relationships. Social skills training can help adults with ADHD relate to family, friends, and coworkers. Couples counseling or family therapy can also help improve relationships. Counseling Counseling is not meant to treat inattention, hyperactivity, or impulsiveness. But it can help with some of the problems that go along with ADHD. These include not getting along well with others and having problems following rules. Where can you learn more? Log into your personal health record on https://Medypalt.Lifetable and enter Z848 in the Education box to learn more about Learning About Attention Deficit Hyperactivity Disorder (ADHD) in Adults. Current as of: December 01, 2020 Content Version: 13.1 [employer]. Care instructions adapted under license by your healthcare professional. If you have questions about a medical condition or this instruction, always ask your healthcare professional. [employer] disclaims any warranty or liability for your use of this information. documented in this encounter [facility] 06-21-2021 Miscellaneous Notes Associated Problem(s): ADHD I have ordered a 90 day supply of your Adderall. This is a controlled substance which is regulated by the Federal government. To have this medication refilled, you must be seen in the office every 90 days. You are also required to have a Controlled Substance Agreement signed and on file, as well as a urine drug screen - these need to be completed yearly. Continue current medications, Controlled Substance Agreement is on file and an OARRS report was checked today, you were given a 3 months supply, follow-up in the office as scheduled. documented in this encounter [facility] 06-06-2021 History of Presen t illness Narrative VIDEO VISIT PROGRESS NOTE Frida Combs is a 40 y.o. female with a past medical history of Patient Active Problem List Diagnosis ADHD Hidradenitis suppurativa ANISH (generalized anxiety disorder) Depression Mood disorder (HCC) Well adult exam who presents for a video visit today for a ADHD follow up. Patient is doing well on current medications. 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 Appetite: good Last Dose: yesterday Medication is keep safe within the home where the patient resides with children HPI Health Maintenance Topic Date Due Tetanus: Every 10yrs 06/19/2021 Pneumococcal Vaccine: Ped or At-Risk (1 of 2 - PPSV23) 04/15/2022 (Originally 08/19/1987) Depression Remission Assessment (PHQ9) 10/08/2021 Wellness Visit 04/15/2022 Sequential Influenza Vaccine Completed COVID-19 Vaccine Completed Hepatitis C Screening Discontinued Pap Smear Discontinued HIV Screening Discontinued The following portions of the patient's history were reviewed and updated as appropriate: allergies, current medications and problem list. Family History Problem Relation Age of Onset Diabetes Father Hypertension Father Clotting disorder Sister Lung cancer Maternal Grandfather Bone cancer Paternal Grandfather Arthritis Mother Hypertension Mother Mental illness Mother Depression Mother Asthma Brother Hypertension Paternal Grandmother Hyperlipidemia Paternal Grandmother Heart disease Paternal Grandmother Hypertension Brother Social History Socioeconomic History Marital status: Life Partner Number of children: 3 Tobacco Use Smoking status: Current Every Day Smoker Packs/day: 0.50 Years: 19.00 Pack years: 9.50 Types: Cigarettes Start date: 04/18/1999 Smokeless tobacco: Never Used Vaping Use Vaping Use: Never used Substance and Sexual Activity Alcohol use: Yes Drug use: Never Sexual activity: Yes Partners: Male control/protection: Surgical Past Surgical History: Procedure Laterality Date HYSTERECTOMY 2008 Allergies Allergen Reactions Augmentin [Amoxicillin-Pot Clavulanate] Hives Clavulanic Acid Penicillins Patient's Medications New Prescriptions No medications on file Previous Medications FLUOXETINE (PROZAC) 20 MG CAPSULE Take 1 (one) capsule (20 mg total) by mouth daily . Modified Medications Modified Medication Previous Medication DEXTROAMPHETAMINE-AMPHETAMINE (ADDERALL) 10 MG TABLET dextroamphetamine-amphetamine (ADDERALL) 10 mg tablet Take 1 (one) tablet (10 mg total) by mouth daily . Take 1 (one) tablet (10 mg total) by mouth daily Start: 04/08/21. DEXTROAMPHETAMINE-AMPHETAMINE (ADDERALL) 10 MG TABLET dextroamphetamine-amphetamine (ADDERALL) 10 mg tablet Take 1 (one) tablet (10 mg total) by mouth daily Start: 07/04/21. Take 1 (one) tablet (10 mg total) by mouth daily . DEXTROAMPHETAMINE-AMPHETAMINE (ADDERALL) 30 MG TABLET dextroamphetamine-amphetamine (ADDERALL) 30 mg tablet Take 1 (one) tablet (30 mg total) by mouth 2 (two) times a day Start: 08/01/21. Take 1 (one) tablet (30 mg total) by mouth 2 (two) times a day Start: 05/06/21. DEXTROAMPHETAMINE-AMPHETAMINE (ADDERALL) 30 MG TABLET dextroamphetamine-amphetamine (ADDERALL) 30 mg tablet Take 1 (one) tablet (30 mg total) by mouth 2 (two) times a day Start: 07/04/21. Take 1 (one) tablet (30 mg total) by mouth 2 (two) times a day Start: 04/08/21. DEXTROAMPHETAMINE-AMPHETAMINE (ADDERALL) 30 MG TABLET dextroamphetamine-amphetamine (ADDERALL) 30 mg tablet Take 1 (one) tablet (30 mg total) by mouth 2 (two) times a day . Take 1 (one) tablet (30 mg total) by mouth 2 (two) times a day . Discontinued Medications No medications on file Review of Systems Review of Systems Constitutional: Negative for activity change, appetite change and fatigue. Respiratory: Negative for cough and shortness of breath. Cardiovascular: Negative for chest pain and palpitations. Neurological: Negative for dizziness, facial asymmetry, light-headedness and headaches. Psychiatric/Behavioral: Negative for agitation. The patient is not nervous/anxious. There were no vitals filed for this visit. There is no height or weight on file to calculate BMI. Physical Exam Physical Exam Constitutional: Appearance: Normal appearance. HENT: Nose: Nose normal. Mouth/Throat: Lips: [place]. Pulmonary: Effort: Pulmonary effort is normal. Musculoskeletal: General: Normal range of motion. Cervical back: Normal range of motion. Neurological: General: No focal deficit present. Mental Status: She is alert and oriented to person, place, and time. Psychiatric: Attention and Perception: Attention and perception normal. Mood and Affect: Mood and affect normal. Speech: Speech normal. Behavior: Behavior normal. Behavior is cooperative. Thought Content: Thought content normal. Cognition and Memory: Cognition and memory normal. Judgment: Judgment normal. OARRS/NARxCHECK Report Received and Assessed: 06/06/2021 Date controlled substance agreement signed: 06/01/2020 Date of last drug screen: 06/01/2020 Functional Assessment: No data found The ASCVD Risk score (Ken CARRION Jr., et al., 2013) failed to calculate for the following reasons: The 2013 ASCVD risk score is only valid for ages 40 to 79 Assessment/Plan Problem List Items Addressed This Visit Other ADHD I have ordered a 90 day supply of your Adderall. This is a controlled substance which is regulated by the Federal government. To have this medication refilled, you must be seen in the office every 90 days. You are also required to have a Controlled Substance Agreement signed and on file, as well as a urine drug screen - these need to be completed yearly. Continue current medications, Controlled Substance Agreement is on file and an OARRS report was checked today, you were given a 3 months supply, follow-up in the office as scheduled. Relevant Medications dextroamphetamine-amphetamine (ADDERALL) 30 mg tablet (Start on 08/01/2021) dextroamphetamine-amphetamine (ADDERALL) 30 mg tablet (Start on 07/04/2021) dextroamphetamine-amphetamine (ADDERALL) 10 mg tablet dextroamphetamine-amphetamine (ADDERALL) 10 mg tablet (Start on 07/04/2021) dextroamphetamine-amphetamine (ADDERALL) 30 mg tablet Goals None Video Visit [facility] [address] [facility] [address] [place] [id number] Video Visit [facility] 06/06/2021 Rachael Linda CNP Provider Location: opg office or provider's home Patient Location Scoring Machine Operator: None Patient Location: Patient's Home Patient: Frida Combs Date of : 1980 (40 y.o. female) PCP: Rachael Linda CNP Video Visit Consent Statement: I discussed risks, benefits and alternatives of a video visit telemedicine consultation with the patient (and any accompanying persons) including the risks that the patient s personal health details and medical records will be discussed over real-time, synchronous, interactive video/audio/telecommunication technology, the visit will not be recorded without the express consent of both the provider and the patient, and that there are inherent diagnostic limitations compared to [id number] evaluations. We elected to proceed with the video visit telemedicine consultation. For any new medications prescribed today, patient was educated about indications for the medication, how to take the medication and potential side effects of the medications. documented in this encounter [facility] 04-15-2021 Instructions Rachael Linda CNP - 04/15/2021 9:07 AM EDT Images from the original note were not included. Well Visit, Ages 18 to 50: Care Instructions Overview Well visits can help you stay healthy. Your doctor has checked your overall health and may have suggested ways to take good care of yourself. Your doctor also may have recommended tests. At home, you can help prevent illness with healthy eating, regular exercise, and other steps. Follow-up care is a umaña part of your treatment and safety. Be sure to make and go to all appointments, and call your doctor if you are having problems. It's also a good idea to know your test results and keep a list of the medicines you take. How can you care for yourself at home? Get screening tests that you and your doctor decide on. Screening helps find diseases before any symptoms appear. Eat healthy foods. Choose fruits, vegetables, whole grains, protein, and low-fat dairy foods. Limit fat, especially saturated fat. Reduce salt in your diet. Limit alcohol. If you are a man, have no more than 2 drinks a day or 14 drinks a week. If you are a woman, have no more than 1 drink a day or 7 drinks a week. Get at least 30 minutes of physical activity on most days of the week. Walking is a good choice. You also may want to do other activities, such as running, swimming, cycling, or playing tennis or team sports. Discuss any changes in your exercise program with your doctor. Reach and stay at a healthy weight. This will lower your risk for many problems, such as obesity, diabetes, heart disease, and high blood pressure. Do not smoke or allow others to smoke around you. If you need help quitting, talk to your doctor about stop-smoking programs and medicines. These can increase your chances of quitting for good. Care for your mental health. It is easy to get weighed down by worry and stress. Learn strategies to manage stress, like deep breathing and mindfulness, and stay connected with your family and community. If you find you often feel sad or hopeless, talk with your doctor. Treatment can help. Talk to your doctor about whether you have any risk factors for sexually transmitted infections (STIs). You can help prevent STIs if you wait to have sex with a new partner (or partners) until you've each been tested for STIs. It also helps if you use condoms (male or female condoms) and if you limit your sex partners to one person who only has sex with you. Vaccines are available for some STIs, such as HPV. Use control if it's important to you to prevent . Talk with your doctor about the choices available and what might be best for you. If you think you may have a problem with alcohol or drug use, talk to your doctor. This includes prescription medicines (such as amphetamines and opioids) and illegal drugs (such as cocaine and methamphetamine). Your doctor can help you figure out what type of treatment is best for you. Protect your skin from too much sun. When you're outdoors from 10 a.m. to 4 p.m., stay in the shade or cover up with clothing and a hat with a wide brim. Wear sunglasses that block UV rays. Even when it's cloudy, put broad-spectrum sunscreen (SPF 30 or higher) on any exposed skin. See a dentist one or two times a year for checkups and to have your teeth cleaned. Wear a seat belt in the car. When should you call for help? Watch closely for changes in your health, and be sure to contact your doctor if you have any problems or symptoms that concern you. Where can you learn more? Log into your personal health record on https://Medypalt.Lifetable and enter P072 in the Education box to learn more about Well Visit, Ages 18 to 50: Care Instructions. Current as of: July 29, 2020 Content Version: 13.0 [employer]. Care instructions adapted under license by your healthcare professional. If you have questions about a medical condition or this instruction, always ask your healthcare professional. [employer] disclaims any warranty or liability for your use of this information. documented in this encounter [facility] 04-15-2021 Miscellaneous Notes Associated Problem(s): Well adult exam Doing well, denies complaints at this time. Health maintenance updated and reviewed with patient. It is recommended that you complete at least 150 minutes of cardiovascular activity weekly. documented in this encounter [facility] 04-15-2021 History of Presen t illness Narrative OUTPATIENT WELL ADULT PROGRESS NOTE Frida Combs is a 40 y.o. female and is here for a preventative care visit. Patient's medical and surgical history was updated, as well as family's medical history. Health maintenance was reviewed and updated Patient is a 40 y.o. female with a past medical history of Patient Active Problem List Diagnosis ADHD Hidradenitis suppurativa ANISH (generalized anxiety disorder) Depression Mood disorder (HCC) Well adult exam who presents to the office today for a well adult exam. Patient is doing well and denies complaints at this time. HPI Subjective: Health Maintenance reviewed - patient to have labs drawn . OBGYN HX LMP hysterectomy Patient has periods (heavy, regular, painful): not applicable Sexually active ( control): yes, male Any breast concerns? denies Health Maintenance Due Topic Date Due Wellness Visit Never done Sequential Influenza Vaccine (1) 02/16/2021 Health Maintenance Topic Date Due Pap Smear Discontinued Last Pap completed not applicable No Mammogram in Health Maintenance Not applicable The following portions of the patient's history were reviewed and updated as appropriate: allergies, current medications, past family history, past medical history, past social history, past surgical history and problem list. Past Medical History: Diagnosis Date ADD (attention deficit disorder) 11 years old Hidradenitis suppurativa Past Surgical History: Procedure Laterality Date HYSTERECTOMY 2007 OB History 3 Para 3 Term 3 AB 0 Living 3 SAB 0 IAB Ectopic Multiple Live Births 3 Social History Socioeconomic History Marital status: Life Partner Spouse name: Not on file Number of children: 3 Years of education: Not on file Highest education level: Not on file Occupational History Not on file Tobacco Use Smoking status: Current Every Day Smoker Packs/day: 0.50 Years: 19.00 Pack years: 9.50 Types: Cigarettes Start date: 04/18/1999 Smokeless tobacco: Never Used Vaping Use Vaping Use: Never used Substance and Sexual Activity Alcohol use: Yes Drug use: Never Sexual activity: Yes Partners: Male control/protection: Surgical Other Topics Concern Not on file Social History Narrative Not on file Social Determinants of Health Financial Resource Strain: Difficulty of Paying Living Expenses: Not on file Food Insecurity: Worried About Running Out of Food in the Last Year: Not on file Ran Out of Food in the Last Year: Not on file Transportation Needs: Lack of Transportation (Medical): Not on file Lack of Transportation (Non-Medical): Not on file Physical Activity: Days of Exercise per Week: Not on file Minutes of Exercise per Session: Not on file Stress: Feeling of Stress : Not on file Social Connections: Frequency of Communication with Friends and Family: Not on file Frequency of Social Gatherings with Friends and Family: Not on file Attends Gnosticism Services: Not on file Active Member of Clubs or Organizations: Not on file Attends Club or Organization Meetings: Not on file Marital Status: Not on file Housing Stability: Unable to Pay for Housing in the Last Year: Not on file Number of Places Lived in the Last Year: Not on file Unstable Housing in the Last Year: Not on file Family History Problem Relation Age of Onset Diabetes Father Hypertension Father Clotting disorder Sister Lung cancer Maternal Grandfather Bone cancer Paternal Grandfather Arthritis Mother Hypertension Mother Mental illness Mother Depression Mother Asthma Brother Hypertension Paternal Grandmother Hyperlipidemia Paternal Grandmother Heart disease Paternal Grandmother Hypertension Brother Allergies Allergen Reactions Augmentin [Amoxicillin-Pot Clavulanate] Hives Clavulanic Acid Penicillins Past Surgical History: Procedure Laterality Date HYSTERECTOMY 2007 Patient's Medications New Prescriptions No medications on file Previous Medications DEXTROAMPHETAMINE-AMPHETAMINE (ADDERALL) 10 MG TABLET Take 1 (one) tablet (10 mg total) by mouth daily Start: 04/08/21. DEXTROAMPHETAMINE-AMPHETAMINE (ADDERALL) 10 MG TABLET Take 1 (one) tablet (10 mg total) by mouth daily . DEXTROAMPHETAMINE-AMPHETAMINE (ADDERALL) 30 MG TABLET Take 1 (one) tablet (30 mg total) by mouth 2 (two) times a day Start: 05/06/21. DEXTROAMPHETAMINE-AMPHETAMINE (ADDERALL) 30 MG TABLET Take 1 (one) tablet (30 mg total) by mouth 2 (two) times a day Start: 04/08/21. DEXTROAMPHETAMINE-AMPHETAMINE (ADDERALL) 30 MG TABLET Take 1 (one) tablet (30 mg total) by mouth 2 (two) times a day . FLUOXETINE (PROZAC) 20 MG CAPSULE Take 1 (one) capsule (20 mg total) by mouth daily . Modified Medications No medications on file Discontinued Medications PROMETHAZINE (PHENERGAN) 25 MG TABLET Take 25 mg by mouth 4 (four) times a day . Objective: BP 117/82 (BP Location: Right arm, Patient Position: Sitting, BP Cuff Size: X-large Adult) Pulse 83 Temp 98.1 F (36.7 C) (Temporal) Resp 16 Ht 5' 3 Wt 98.8 kg (217 lb 14.4 oz) SpO2 97% BMI 38.60 kg/m Review of Systems Review of Systems Constitutional: Negative for activity change, appetite change, chills and fatigue. HENT: Negative for congestion, ear discharge, postnasal drip and rhinorrhea. Eyes: Negative for pain and redness. Respiratory: Negative for cough and shortness of breath. Cardiovascular: Negative for chest pain and palpitations. Gastrointestinal: Negative for abdominal pain, constipation, diarrhea and nausea. Genitourinary: Negative for difficulty urinating, dysuria and urgency. Musculoskeletal: Negative for arthralgias, back pain, gait problem and myalgias. Skin: Negative for color change. Neurological: Negative for dizziness, facial asymmetry, light-headedness and headaches. Psychiatric/Behavioral: Negative for agitation. The patient is not nervous/anxious. Vitals: 04/15/21 0807 BP: 117/82 BP Location: Right arm Patient Position: Sitting BP Cuff Size: X-large Adult Pulse: 83 Resp: 16 Temp: 98.1 F (36.7 C) TempSrc: Temporal SpO2: 97% Weight: 98.8 kg (217 lb 14.4 oz) Height: 5' 3 Body mass index is 38.6 kg/m . The ASCVD Risk score (Ken CARRION Jr., et al., 2013) failed to calculate for the following reasons: The 2013 ASCVD risk score is only valid for ages 40 to 79 Physical Exam Physical Exam Vitals and nursing note reviewed. Constitutional: Appearance: Normal appearance. She is well-developed. HENT: Head: Normocephalic. Right Ear: Tympanic membrane, ear canal and external ear normal. Left Ear: Tympanic membrane, ear canal and external ear normal. Eyes: General: Lids are normal. Conjunctiva/sclera: Conjunctivae normal. Neck: Thyroid: No thyroid mass or thyromegaly. Cardiovascular: Rate and Rhythm: Normal rate and regular rhythm. Pulses: Normal pulses. Radial pulses are 2+ on the right side and 2+ on the left side. Heart sounds: Normal heart sounds. Pulmonary: Effort: Pulmonary effort is normal. Breath sounds: Normal breath sounds. Musculoskeletal: General: Normal range of motion. Cervical back: Normal range of motion. No pain with movement. Lymphadenopathy: Head: Right side of head: No submental, submandibular, tonsillar, preauricular or posterior auricular adenopathy. Left side of head: No submental, submandibular, tonsillar, preauricular or posterior auricular adenopathy. Skin: General: Skin is warm and dry. Neurological: General: No focal deficit present. Mental Status: She is alert and oriented to person, place, and time. Mental status is at baseline. Psychiatric: Attention and Perception: Attention and perception normal. Mood and Affect: Mood and affect normal. Speech: Speech normal. Behavior: Behavior normal. Behavior is cooperative. Thought Content: Thought content normal. Cognition and Memory: Cognition and memory normal. Judgment: Judgment normal. Assessment/Plan Problem List Items Addressed This Visit Other Well adult exam - Primary Doing well, denies complaints at this time. Health maintenance updated and reviewed with patient. It is recommended that you complete at least 150 minutes of cardiovascular activity weekly. Goals None General Patient Counseling Given: --Nutrition: Stressed importance of moderation in sodium/caffeine intake, saturated fat and cholesterol, caloric balance, sufficient intake of fresh fruits, vegetables, fiber, calcium, iron, and 1 mg of folate supplement per day (for females capable of ). --Exercise: Stressed the importance of regular exercise. --Substance Abuse: Discussed cessation/primary prevention of tobacco, alcohol, or other drug use --Sexuality: Discussed sexually transmitted diseases, partner selection, use of condoms, avoidance of unintended and contraceptive alternatives. --Dental health: Discussed importance of regular dental visits. --Immunizations reviewed.TDaP due every 10 days, Shingles vaccines recommended after the age of 50, Pneumonia vaccines due after the age of 65. --Discussed benefits of screening mammograms, pap smears, Dexa Scan (screening of osteoporosis) and colonoscopy. documented in this encounter [facility] 03-18-2021 Instructions Rachael Linda CNP - 03/18/2021 3:51 PM EDT Images from the original note were not included. Learning About Attention Deficit Hyperactivity Disorder (ADHD) in Adults What is ADHD? Attention deficit hyperactivity disorder (ADHD) is a condition in which people have a hard time paying attention. Adults with ADHD also may be more active than normal. They tend to act without thinking. ADHD may make it harder for them to focus, get organized, and finish tasks. ADHD most often starts in childhood and lasts into adulthood. Many adults don't know that they have ADHD until their children are diagnosed. Then they begin to see their own symptoms. Doctors don't know what causes ADHD. But it tends to run in families. What are the symptoms? The most common types of ADHD symptoms in adults are attention problems and hyperactivity. Attention problems Adults with ADHD often find it hard to: Finish tasks that don't interest them or aren't easy. But they may become obsessed with activities that they find interesting and enjoy. Keep relationships. Focus their attention on conversations, reading materials, or jobs. They may change jobs a lot. Remember things. They may misplace or lose things. Pay attention. They are easily distracted. They find it hard to focus on one task. Think before they act. They may make quick decisions. They may act before they think about the effect of their actions. Hyperactivity Adults with ADHD may: Fidget. They may swing their legs, shift in their seats, or tap their fingers. Move around a lot. They may feel revved up or on the go. They may not be able to slow down until they are very tired. Find it hard to relax. They may feel restless and find it hard to do quiet things like read or watch TV. How does ADHD affect daily life? ADHD in adults may affect: Job performance. They may find it hard to organize their work, manage their time, and focus on one task at a time. They may forget, misplace, or lose things. They may quit their jobs out of boredom. Relationships. Adults with ADHD may find it hard to focus their attention on conversations. It is hard for them to read the behavior and moods of others and express their own feelings. Temper. They may get easily frustrated. This often can make it harder for them to deal with stress. These adults may overreact and have a short, quick temper. The ability to solve problems. Adults who have a hard time waiting for things they want may act before they think about the effect of their actions. They may take part in risky behaviors. These include unprotected sex, unsafe driving, alcohol and drug use, or unwise business ventures. How is ADHD treated? ADHD can be treated with medicines, behavior training, or counseling. Or it may be a combination of these treatments. Medicines Stimulant medicines are most often used to treat ADHD. These may include: Amphetamines. (Examples are Adderall and Dexedrine). Methylphenidate. (Examples are Concerta, Daytrana, Focalin, Metadate, and Ritalin). Other medicines that may be used are: Atomoxetine. This includes Strattera, a nonstimulant medicine for ADHD. Antihypertensives. These include clonidine (such as Catapres) and guanfacine (such as Tenex). Antidepressants. These include bupropion (Wellbutrin). Behavior training Behavior training can help adults with ADHD learn how to: Get organized. A daily organizer or land use planner can help these adults organize their daily tasks. They can write down appointments and other things they need to remember. Decrease distractions. They can set up their work or home environment so that there are fewer things that will distract them. They may find using headphones or a white noise machine helpful. College students can arrange a quiet living situation. They may need a single dorm room. Work on relationships. Social skills training can help adults with ADHD relate to family, friends, and coworkers. Couples counseling or family therapy can also help improve relationships. Counseling Counseling is not meant to treat inattention, hyperactivity, or impulsiveness. But it can help with some of the problems that go along with ADHD. These include not getting along well with others and having problems following rules. Where can you learn more? Log into your personal health record on https://Medypalt.Lifetable and enter Z848 in the Education box to learn more about Learning About Attention Deficit Hyperactivity Disorder (ADHD) in Adults. Current as of: December 01, 2020 Content Version: 13.0 [employer]. Care instructions adapted under license by your healthcare professional. If you have questions about a medical condition or this instruction, always ask your healthcare professional. [employer] disclaims any warranty or liability for your use of this information. documented in this encounter [facility] 03-18-2021 Miscellaneous Notes Associated Problem(s): ADHD I have ordered a 90 day supply of your Adderall. This is a controlled substance which is regulated by the Federal government. To have this medication refilled, you must be seen in the office every 90 days. You are also required to have a Controlled Substance Agreement signed and on file, as well as a urine drug screen - these need to be completed yearly. Continue current medications, Controlled Substance Agreement is on file and an OARRS report was checked today, you were given a 3 months supply, follow-up in the office as scheduled. documented in this encounter [facility] 03-10-2021 History of Presen t illness Narrative VIDEO VISIT PROGRESS NOTE Frida Combs is a 40 y.o. female with a past medical history of Patient Active Problem List Diagnosis ADHD Hidradenitis suppurativa ANISH (generalized anxiety disorder) Depression Mood disorder (HCC) who presents for a video visit today for a ADHD follow up. Patient is doing well on current medications. 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 Appetite: good Last Dose: yesterday Medication is keep safe within the home where the patient resides with children HPI Health Maintenance Topic Date Due Wellness Visit Never done Pneumococcal Vaccine: Ped or At-Risk (1 of 2 - PPSV23) Never done HIV Screening Never done Hepatitis C Screening Never done Sequential Influenza Vaccine (1) 02/16/2021 Tetanus: Every 10yrs 06/19/2021 Depression Remission Assessment (PHQ9) 10/08/2021 COVID-19 Vaccine Completed Pap Smear Discontinued The following portions of the patient's history were reviewed and updated as appropriate: allergies, current medications and problem list. Family History Problem Relation Age of Onset Diabetes Father Hypertension Father Clotting disorder Sister Lung cancer Maternal Grandfather Bone cancer Paternal Grandfather Arthritis Mother Hypertension Mother Mental illness Mother Depression Mother Asthma Brother Hypertension Paternal Grandmother Hyperlipidemia Paternal Grandmother Heart disease Paternal Grandmother Hypertension Brother Social History Socioeconomic History Marital status: Spouse name: Not on file Number of children: 3 Years of education: Not on file Highest education level: Not on file Occupational History Not on file Tobacco Use Smoking status: Current Every Day Smoker Packs/day: 0.50 Years: 19.00 Pack years: 9.50 Types: Cigarettes Start date: 04/18/1999 Smokeless tobacco: Never Used Vaping Use Vaping Use: Never used Substance and Sexual Activity Alcohol use: Yes Drug use: Never Sexual activity: Yes Partners: Male control/protection: Surgical Other Topics Concern Not on file Social History Narrative Not on file Social Determinants of Health Financial Resource Strain: Difficulty of Paying Living Expenses: Not on file Food Insecurity: Worried About Running Out of Food in the Last Year: Not on file Ran Out of Food in the Last Year: Not on file Transportation Needs: Lack of Transportation (Medical): Not on file Lack of Transportation (Non-Medical): Not on file Physical Activity: Days of Exercise per Week: Not on file Minutes of Exercise per Session: Not on file Stress: Feeling of Stress : Not on file Social Connections: Frequency of Communication with Friends and Family: Not on file Frequency of Social Gatherings with Friends and Family: Not on file Attends Gnosticism Services: Not on file Active Member of Clubs or Organizations: Not on file Attends Club or Organization Meetings: Not on file Marital Status: Not on file Housing Stability: Unable to Pay for Housing in the Last Year: Not on file Number of Places Lived in the Last Year: Not on file Unstable Housing in the Last Year: Not on file Past Surgical History: Procedure Laterality Date HYSTERECTOMY 2008 Allergies Allergen Reactions Augmentin [Amoxicillin-Pot Clavulanate] Hives Clavulanic Acid Penicillins Patient's Medications New Prescriptions DEXTROAMPHETAMINE-AMPHETAMINE (ADDERALL) 10 MG TABLET Take 1 (one) tablet (10 mg total) by mouth daily Start: 04/08/21. DEXTROAMPHETAMINE-AMPHETAMINE (ADDERALL) 10 MG TABLET Take 1 (one) tablet (10 mg total) by mouth daily . Previous Medications FLUOXETINE (PROZAC) 20 MG CAPSULE Take 1 (one) capsule (20 mg total) by mouth daily . PROMETHAZINE (PHENERGAN) 25 MG TABLET Take 25 mg by mouth 4 (four) times a day . Modified Medications Modified Medication Previous Medication DEXTROAMPHETAMINE-AMPHETAMINE (ADDERALL) 30 MG TABLET dextroamphetamine-amphetamine (ADDERALL) 30 mg tablet Take 1 (one) tablet (30 mg total) by mouth 2 (two) times a day Start: 05/06/21. Take 1 (one) tablet (30 mg total) by mouth 2 (two) times a day . DEXTROAMPHETAMINE-AMPHETAMINE (ADDERALL) 30 MG TABLET dextroamphetamine-amphetamine (ADDERALL) 30 mg tablet Take 1 (one) tablet (30 mg total) by mouth 2 (two) times a day Start: 04/08/21. Take 1 (one) tablet (30 mg total) by mouth 2 (two) times a day Start: 03/16/21. DEXTROAMPHETAMINE-AMPHETAMINE (ADDERALL) 30 MG TABLET dextroamphetamine-amphetamine (ADDERALL) 30 mg tablet Take 1 (one) tablet (30 mg total) by mouth 2 (two) times a day . Take 1 (one) tablet (30 mg total) by mouth 2 (two) times a day Start: 02/16/21. Discontinued Medications DEXTROAMPHETAMINE-AMPHETAMINE (ADDERALL) 10 MG TABLET Take 1 (one) tablet (10 mg total) by mouth daily in the afternoon Start: 02/04/21. DEXTROAMPHETAMINE-AMPHETAMINE (ADDERALL) 10 MG TABLET Take 1 (one) tablet (10 mg total) by mouth daily in the afternoon . LISDEXAMFETAMINE (VYVANSE) 20 MG CAPSULE Take 1 (one) capsule (20 mg total) by mouth every morning . LISDEXAMFETAMINE (VYVANSE) 20 MG CAPSULE Take 1 (one) capsule (20 mg total) by mouth every morning Start: 01/05/21. LISDEXAMFETAMINE (VYVANSE) 20 MG CAPSULE Take 1 (one) capsule (20 mg total) by mouth every morning Start: 02/04/21. Review of Systems Review of Systems Constitutional: Negative for activity change, appetite change and fatigue. Respiratory: Negative for cough and shortness of breath. Cardiovascular: Negative for chest pain and palpitations. Neurological: Negative for dizziness, facial asymmetry, light-headedness and headaches. Psychiatric/Behavioral: Negative for agitation. The patient is not nervous/anxious. There were no vitals filed for this visit. There is no height or weight on file to calculate BMI. Physical Exam Physical Exam Constitutional: Appearance: Normal appearance. HENT: Nose: Nose normal. Mouth/Throat: Lips: [place]. Pulmonary: Effort: Pulmonary effort is normal. Musculoskeletal: General: Normal range of motion. Cervical back: Normal range of motion. Neurological: General: No focal deficit present. Mental Status: She is alert and oriented to person, place, and time. Psychiatric: Attention and Perception: Attention and perception normal. Mood and Affect: Mood and affect normal. Speech: Speech normal. Behavior: Behavior normal. Behavior is cooperative. Thought Content: Thought content normal. Cognition and Memory: Cognition and memory normal. Judgment: Judgment normal. OARRS/NARxCHECK Report Received and Assessed: 01/19/2021 Date controlled substance agreement signed: 06/01/2020 Date of last drug screen: 06/01/2020 Functional Assessment: No data found The ASCVD Risk score (Ken CARRION Jr., et al., 2013) failed to calculate for the following reasons: The 2013 ASCVD risk score is only valid for ages 40 to 79 Assessment/Plan Problem List Items Addressed This Visit Other ADHD I have ordered a 90 day supply of your Adderall. This is a controlled substance which is regulated by the Federal government. To have this medication refilled, you must be seen in the office every 90 days. You are also required to have a Controlled Substance Agreement signed and on file, as well as a urine drug screen - these need to be completed yearly. Continue current medications, Controlled Substance Agreement is on file and an OARRS report was checked today, you were given a 3 months supply, follow-up in the office as scheduled. Relevant Medications dextroamphetamine-amphetamine (ADDERALL) 30 mg tablet (Start on 05/06/2021) dextroamphetamine-amphetamine (ADDERALL) 30 mg tablet (Start on 04/08/2021) dextroamphetamine-amphetamine (ADDERALL) 30 mg tablet dextroamphetamine-amphetamine (ADDERALL) 10 mg tablet (Start on 04/08/2021) dextroamphetamine-amphetamine (ADDERALL) 10 mg tablet Goals None Video Visit [facility] [address] [facility] [address] [place] [address] Video Visit [facility] 03/10/2021 Rachael Linda CNP Provider Location: opg office or provider's home Patient Location Scoring Machine Operator: None Patient Location: Patient's Home Patient: Frida Combs Date of : 1980 (40 y.o. female) PCP: Rachael Linda CNP Video Visit Consent Statement: I discussed risks, benefits and alternatives of a video visit telemedicine consultation with the patient (and any accompanying persons) including the risks that the patient s personal health details and medical records will be discussed over real-time, synchronous, interactive video/audio/telecommunication technology, the visit will not be recorded without the express consent of both the provider and the patient, and that there are inherent diagnostic limitations compared to [id number] evaluations. We elected to proceed with the video visit telemedicine consultation. For any new medications prescribed today, patient was educated about indications for the medication, how to take the medication and potential side effects of the medications. documented in this encounter [facility] 12-14-2020 Miscellaneous Notes Associated Problem(s): ADHD I have ordered a 90 day supply of your Vyvanse. This is a controlled substance which is regulated by the Federal government. To have this medication refilled, you must be seen in the office every 90 days. You are also required to have a Controlled Substance Agreement signed and on file, as well as a urine drug screen - these need to be completed yearly. Continue current medications, Controlled Substance Agreement is on file and an OARRS report was checked today, you were given a 3 months supply, follow-up in the office as scheduled. . Associated Problem(s): ANISH (generalized anxiety disorder) I have started you on Prozac for your anxiety. This medication can take 6-8 weeks for you to notice any mood improvements. Please do not stop this medication suddenly as you could have some side effects which can include but not limited to: nausea, upset stomach, severe depression and suicidal thoughts. I would like to see you back in 12 weeks to assess how the medication is working for you. documented in this encounter [facility] 12-08-2020 Instructions Rachael Linda CNP - 12/08/2020 11:11 AM EDT Images from the original note were not included. Learning About Attention Deficit Hyperactivity Disorder (ADHD) in Adults What is ADHD? Attention deficit hyperactivity disorder (ADHD) is a condition in which people have a hard time paying attention. Adults with ADHD also may be more active than normal. They tend to act without thinking. ADHD may make it harder for them to focus, get organized, and finish tasks. ADHD most often starts in childhood and lasts into adulthood. Many adults don't know that they have ADHD until their children are diagnosed. Then they begin to see their own symptoms. Doctors don't know what causes ADHD. But it tends to run in families. What are the symptoms? The most common types of ADHD symptoms in adults are attention problems and hyperactivity. Attention problems Adults with ADHD often find it hard to: Finish tasks that don't interest them or aren't easy. But they may become obsessed with activities that they find interesting and enjoy. Keep relationships. Focus their attention on conversations, reading materials, or jobs. They may change jobs a lot. Remember things. They may misplace or lose things. Pay attention. They are easily distracted. They find it hard to focus on one task. Think before they act. They may make quick decisions. They may act before they think about the effect of their actions. Hyperactivity Adults with ADHD may: Fidget. They may swing their legs, shift in their seats, or tap their fingers. Move around a lot. They may feel revved up or on the go. They may not be able to slow down until they are very tired. Find it hard to relax. They may feel restless and find it hard to do quiet things like read or watch TV. How does ADHD affect daily life? ADHD in adults may affect: Job performance. They may find it hard to organize their work, manage their time, and focus on one task at a time. They may forget, misplace, or lose things. They may quit their jobs out of boredom. Relationships. Adults with ADHD may find it hard to focus their attention on conversations. It is hard for them to read the behavior and moods of others and express their own feelings. Temper. They may get easily frustrated. This often can make it harder for them to deal with stress. These adults may overreact and have a short, quick temper. The ability to solve problems. Adults who have a hard time waiting for things they want may act before they think about the effect of their actions. They may take part in risky behaviors. These include unprotected sex, unsafe driving, alcohol and drug use, or unwise business ventures. How is ADHD treated? ADHD can be treated with medicines, behavior training, or counseling. Or it may be a combination of these treatments. Medicines Stimulant medicines are most often used to treat ADHD. These may include: Amphetamines. (Examples are Adderall and Dexedrine). Methylphenidate. (Examples are Concerta, Daytrana, Focalin, Metadate, and Ritalin). Other medicines that may be used are: Atomoxetine. This includes Strattera, a nonstimulant medicine for ADHD. Antihypertensives. These include clonidine (such as Catapres) and guanfacine (such as Tenex). Antidepressants. These include bupropion (Wellbutrin). Behavior training Behavior training can help adults with ADHD learn how to: Get organized. A daily organizer or land use planner can help these adults organize their daily tasks. They can write down appointments and other things they need to remember. Decrease distractions. They can set up their work or home environment so that there are fewer things that will distract them. They may find using headphones or a white noise machine helpful. College students can arrange a quiet living situation. They may need a single dorm room. Work on relationships. Social skills training can help adults with ADHD relate to family, friends, and coworkers. Couples counseling or family therapy can also help improve relationships. Counseling Counseling is not meant to treat inattention, hyperactivity, or impulsiveness. But it can help with some of the problems that go along with ADHD. These include not getting along well with others and having problems following rules. Where can you learn more? Log into your personal health record on https://ViewsIQ.Lifetable and enter Z848 in the Education box to learn more about Learning About Attention Deficit Hyperactivity Disorder (ADHD) in Adults. Current as of: March 10, 2020 Content Version: 12.8 [employer]. Care instructions adapted under license by your healthcare professional. If you have questions about a medical condition or this instruction, always ask your healthcare professional. [employer] disclaims any warranty or liability for your use of this information. Anxiety Disorder: Care Instructions Your Care Instructions Anxiety is a normal reaction to stress. Difficult situations can cause you to have symptoms such as sweaty palms and a nervous feeling. In an anxiety disorder, the symptoms are far more severe. Constant worry, muscle tension, trouble sleeping, nausea and diarrhea, and other symptoms can make normal daily activities difficult or impossible. These symptoms may occur for no reason, and they can affect your work, school, or social life. Medicines, counseling, and self-care can all help. Follow-up care is a umaña part of your treatment and safety. Be sure to make and go to all appointments, and call your doctor if you are having problems. It's also a good idea to know your test results and keep a list of the medicines you take. How can you care for yourself at home? Take medicines exactly as directed. Call your doctor if you think you are having a problem with your medicine. Go to your counseling sessions and follow-up appointments. Recognize and accept your anxiety. Then, when you are in a situation that makes you anxious, say to yourself, This is not an emergency. I feel uncomfortable, but I am not in danger. I can keep going even if I feel anxious. Be kind to your body: ? Relieve tension with exercise or a massage. ? Get enough rest. ? Avoid alcohol, caffeine, nicotine, and illegal drugs. They can increase your anxiety level and cause sleep problems. ? Learn and do relaxation techniques. See below for more about these techniques. Engage your mind. Get out and do something you enjoy. Go to a [employer], or take a walk or hike. Plan your day. Having too much or too little to do can make you anxious. Keep a record of your symptoms. Discuss your fears with a good friend or family member, or join a support group for people with similar problems. Talking to others sometimes relieves stress. Get involved in social groups, or volunteer to help others. Being alone sometimes makes things seem worse than they are. Get at least 30 minutes of exercise on most days of the week to relieve stress. Walking is a good choice. You also may want to do other activities, such as running, swimming, cycling, or playing tennis or team sports. Relaxation techniques Do relaxation exercises 10 to 20 minutes a day. You can play soothing, relaxing music while you do them, if you wish. Tell others in your house that you are going to do your relaxation exercises. Ask them not to disturb you. Find a comfortable place, away from all distractions and noise. Lie down on your back, or sit with your back straight. Focus on your breathing. Make it slow and steady. Breathe in through your nose. Breathe out through either your nose or mouth. Breathe deeply, filling up the area between your navel and your rib cage. Breathe so that your belly goes up and down. Do not hold your breath. Breathe like this for 5 to 10 minutes. Notice the feeling of calmness throughout your whole body. As you continue to breathe slowly and deeply, relax by doing the following for another 5 to 10 minutes: Tighten and relax each muscle group in your body. You can begin at your toes and work your way up to your head. Imagine your muscle groups relaxing and becoming heavy. Empty your mind of all thoughts. Let yourself relax more and more deeply. Become aware of the state of calmness that surrounds you. When your relaxation time is over, you can bring yourself back to alertness by moving your fingers and toes and then your hands and feet and then stretching and moving your entire body. Sometimes people fall asleep during relaxation, but they usually wake up shortly afterward. Always give yourself time to return to full alertness before you drive a car or do anything that might cause an accident if you are not fully alert. Never play a relaxation tape while you drive a car. When should you call for help? Call 911 anytime you think you may need emergency care. For example, call if: You feel you cannot stop from hurting yourself or someone else. Keep the numbers for these national suicide hotlines: 6-646-275-TALK ( ) and 0-861-DJRUSFO ( ). If you or someone you know talks about suicide or feeling hopeless, get help right away. Watch closely for changes in your health, and be sure to contact your doctor if: You have anxiety or fear that affects your life. You have symptoms of anxiety that are new or different from those you had before. Where can you learn more? Log into your personal health record on https://Medypalt.Lifetable and enter P754 in the Education box to learn more about Anxiety Disorder: Care Instructions. Current as of: March 10, 2020 Content Version: 12.8 [employer]. Care instructions adapted under license by your healthcare professional. If you have questions about a medical condition or this instruction, always ask your healthcare professional. [employer] disclaims any warranty or liability for your use of this information. documented in this encounter [facility] 12-08-2020 History of Presen t illness Narrative OFFICE VISIT PROGRESS NOTE Frida Combs is a 40 y.o. 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 Appetite: good Last Dose: yesterday Medication is keep safe within the home where the patient resides with children Anxiety Presents for follow-up visit. Patient reports no chest pain, depressed mood, dizziness, dry mouth, excessive worry, insomnia, irritability, nervous/anxious behavior, palpitations, panic, restlessness or shortness of breath. Symptoms occur rarely. The severity of symptoms is mild. The quality of sleep is fair. Nighttime awakenings: occasional. Compliance with medications is 76-100%. Health Maintenance Topic Date Due Wellness Visit Never done Pneumococcal Vaccine: Ped or At-Risk (1 of 2 - PPSV23) Never done HIV Screening Never done Hepatitis C Screening Never done Sequential Influenza Vaccine (Season Ended) 2021 Tetanus: Every 10yrs 06/19/2021 Depression Remission Assessment (PHQ9) 10/08/2021 COVID-19 Vaccine Completed Pap Smear Discontinued The following portions of the patient's history were reviewed and updated as appropriate: allergies, current medications and problem list. Family History Problem Relation Age of Onset Diabetes Father Hypertension Father Clotting disorder Sister Lung cancer Maternal Grandfather Bone cancer Paternal Grandfather Arthritis Mother Hypertension Mother Mental illness Mother Depression Mother Asthma Brother Hypertension Paternal Grandmother Hyperlipidemia Paternal Grandmother Heart disease Paternal Grandmother Hypertension Brother Social History Socioeconomic History Marital status: Spouse name: Not on file Number of children: 3 Years of education: Not on file Highest education level: Not on file Occupational History Not on file Tobacco Use Smoking status: Current Every Day Smoker Packs/day: 0.50 Years: 19.00 Pack years: 9.50 Types: Cigarettes Start date: 04/18/1999 Smokeless tobacco: Never Used Vaping Use Vaping Use: Never used Substance and Sexual Activity Alcohol use: Yes Drug use: Never Sexual activity: Yes Partners: Male control/protection: Surgical Other Topics Concern Not on file Social History Narrative Not on file Social Determinants of Health Financial Resource Strain: Difficulty of Paying Living Expenses: Food Insecurity: Worried About Running Out of Food in the Last Year: Ran Out of Food in the Last Year: Transportation Needs: Lack of Transportation (Medical): Lack of Transportation (Non-Medical): Physical Activity: Days of Exercise per Week: Minutes of Exercise per Session: Stress: Feeling of Stress : Social Connections: Frequency of Communication with Friends and Family: Frequency of Social Gatherings with Friends and Family: Attends Gnosticism Services: Active Member of Clubs or Organizations: Attends Club or Organization Meetings: Marital Status: Past Surgical History: Procedure Laterality Date HYSTERECTOMY 2008 Allergies Allergen Reactions Augmentin [Amoxicillin-Pot Clavulanate] Hives Clavulanic Acid Penicillins Patient's Medications New Prescriptions FLUOXETINE (PROZAC) 20 MG CAPSULE Take 1 (one) capsule (20 mg total) by mouth daily . LISDEXAMFETAMINE (VYVANSE) 20 MG CAPSULE Take 1 (one) capsule (20 mg total) by mouth every morning . LISDEXAMFETAMINE (VYVANSE) 20 MG CAPSULE Take 1 (one) capsule (20 mg total) by mouth every morning Start: 01/05/21. LISDEXAMFETAMINE (VYVANSE) 20 MG CAPSULE Take 1 (one) capsule (20 mg total) by mouth every morning Start: 02/04/21. Previous Medications PROMETHAZINE (PHENERGAN) 25 MG TABLET Take 25 mg by mouth 4 (four) times a day . Modified Medications No medications on file Discontinued Medications CLONIDINE HCL (CATAPRES) 0.1 MG TABLET Take 1 (one) tablet (0.1 mg total) by mouth nightly as needed . DEXTROAMPHETAMINE-AMPHETAMINE (ADDERALL) 10 MG TABLET Take 1 (one) tablet (10 mg total) by mouth daily as needed Start: 09/23/20. DEXTROAMPHETAMINE-AMPHETAMINE (ADDERALL) 10 MG TABLET Take 1 (one) tablet (10 mg total) by mouth daily . DEXTROAMPHETAMINE-AMPHETAMINE (ADDERALL) 30 MG TABLET Take 1 (one) tablet (30 mg total) by mouth 2 (two) times a day Start: 10/21/20. DEXTROAMPHETAMINE-AMPHETAMINE (ADDERALL) 30 MG TABLET Take 1 (one) tablet (30 mg total) by mouth 2 (two) times a day Start: 09/23/20. DEXTROAMPHETAMINE-AMPHETAMINE (ADDERALL) 30 MG TABLET Take 1 (one) tablet (30 mg total) by mouth 2 (two) times a day . Review of Systems Review of Systems Constitutional: Negative for activity change, appetite change, fatigue and irritability. Respiratory: Negative for cough and shortness of breath. Cardiovascular: Negative for chest pain and palpitations. Neurological: Negative for dizziness, facial asymmetry, light-headedness and headaches. Psychiatric/Behavioral: Negative for agitation. The patient is not nervous/anxious and does not have insomnia. Vitals: 12/08/20 1048 BP: 128/85 BP Location: Right arm Patient Position: Sitting BP Cuff Size: Adult Pulse: (!) 103 Resp: 16 Temp: 98.6 F (37 C) TempSrc: Temporal SpO2: 98% Weight: 98.1 kg (216 lb 3.2 oz) Height: 5' 3 BP Readings from Last 3 Encounters: 12/08/20 128/85 06/01/20 127/84 01/09/20 116/80 Wt Readings from Last 3 Encounters: 12/08/20 98.1 kg (216 lb 3.2 oz) 06/01/20 95.7 kg (210 lb 14.4 oz) 01/09/20 94.4 kg (208 lb 3.2 oz) Body mass index is 38.3 kg/m . Physical Exam Physical Exam Vitals reviewed. Constitutional: Appearance: Normal appearance. She is well-developed. HENT: Head: Normocephalic. Right Ear: External ear normal. Left Ear: External ear normal. Nose: Nose normal. Eyes: General: Lids are normal. Cardiovascular: Rate and Rhythm: Normal rate and regular rhythm. Heart sounds: Normal heart sounds. Pulmonary: Effort: Pulmonary effort is normal. Breath sounds: Normal breath sounds. Musculoskeletal: General: Normal range of motion. Skin: General: Skin is warm and dry. Neurological: General: No focal deficit present. Mental Status: She is alert and oriented to person, place, and time. Coordination: Coordination is intact. Gait: Gait is intact. Psychiatric: Attention and Perception: Attention normal. Mood and Affect: Mood normal. Speech: Speech normal. Behavior: Behavior normal. Behavior is cooperative. Thought Content: Thought content normal. Cognition and Memory: Cognition normal. Judgment: Judgment normal. OARRS/NARxCHECK Report Received and Assessed: 08/26/2020 Date controlled substance agreement signed: 06/01/2020 Date of last drug screen: 06/01/2020 Functional Assessment: No data found The ASCVD Risk score (Ken SHEYLA Avila., et al., 2013) failed to calculate for the following reasons: The 2013 ASCVD risk score is only valid for ages 40 to 79 Assessment/Plan Problem List Items Addressed This Visit Other ADHD - Primary I have ordered a 90 day supply of your Vyvanse. This is a controlled substance which is regulated by the Federal government. To have this medication refilled, you must be seen in the office every 90 days. You are also required to have a Controlled Substance Agreement signed and on file, as well as a urine drug screen - these need to be completed yearly. Continue current medications, Controlled Substance Agreement is on file and an OARRS report was checked today, you were given a 3 months supply, follow-up in the office as scheduled. . Relevant Medications lisdexamfetamine (VYVANSE) 20 MG capsule lisdexamfetamine (VYVANSE) 20 MG capsule (Start on 01/05/2021) lisdexamfetamine (VYVANSE) 20 MG capsule (Start on 02/04/2021) FLUoxetine (PROZAC) 20 MG capsule ANISH (generalized anxiety disorder) I have started you on Prozac for your anxiety. This medication can take 6-8 weeks for you to notice any mood improvements. Please do not stop this medication suddenly as you could have some side effects which can include but not limited to: nausea, upset stomach, severe depression and suicidal thoughts. I would like to see you back in 12 weeks to assess how the medication is working for you. Relevant Medications lisdexamfetamine (VYVANSE) 20 MG capsule lisdexamfetamine (VYVANSE) 20 MG capsule (Start on 01/05/2021) lisdexamfetamine (VYVANSE) 20 MG capsule (Start on 02/04/2021) FLUoxetine (PROZAC) 20 MG capsule Goals None For any new medications prescribed today, patient was educated about indications for the medication, how to take the medication and potential side effects of the medications. Depression Screening 01/09/2020 12/08/2020 Little interest or pleasure in doing things 1 1 Feeling down, depressed, or hopeless 1 1 PHQ-2 Total Score 2 2 Trouble falling or staying asleep, or sleeping too much 2 2 Feeling tired or having little energy 2 2 Poor appetite or overeating 1 2 Feeling bad about yourself - or that you are a failure or have let yourself or your family down 1 1 Trouble concentrating on things, such as reading the newspaper or watching television 1 1 Moving or speaking so slowly that other people could have noticed. Or the opposite - being so fidgety or restless that you have been moving around a lot more than usual 2 0 Thoughts that you would be better off , or of hurting yourself in some way 0 0 PHQ-9 Total Score 11 10 If you checked off any problems, how difficult have these problems made it for you to do your work, take care of things at home, or get along with other people? Somewhat difficult Not difficult at all documented in this encounter [facility] Diagnosis Attention deficit hyperactivity disorder (ADHD), predominantly inattentive type [facility] Diagnosis Well adult exam- Primary Routine general medical examination at a health care facility [facility] Diagnosis Attention deficit hyperactivity disorder (ADHD), predominantly inattentive type [facility] Diagnosis Vitamin D deficiency- Primary Iron deficiency Disorders of iron metabolism [facility] Diagnosis Depression, unspecified depression type- Primary Attention deficit hyperactivity disorder (ADHD), predominantly inattentive type Intractable migraine with aura without status migrainosus Screening mammogram for breast cancer [facility] Diagnosis Attention deficit hyperactivity disorder (ADHD), predominantly inattentive type [facility] Mood disorder (HCC)- Primary Unspecified episodic mood disorder Intractable migraine with aura without status migrainosus Depression, unspecified depression type Attention deficit hyperactivity disorder (ADHD), predominantly inattentive type Vitamin D deficiency Screening for thyroid disorder Encounter for lipid screening for cardiovascular disease Iron deficiency Disorders of iron metabolism Well adult exam Routine general medical examination at a health care facility [facility] Diagnosis Attention deficit hyperactivity disorder (ADHD), predominantly inattentive type Mood disorder (HCC) Unspecified episodic mood disorder [facility] Diagnosis Well adult exam- Primary Routine general medical examination at a health care facility Iron deficiency 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), predominantly inattentive type [facility]* Attachments The following attachments cannot be sent through Care Everywhere. * ADHD: Adults: General Info (Martiniquais) * Depression: Chronic Disease (Martiniquais) * Migraine Headache ([place]iqu[place]) [facility]* Attachments The following attachments cannot be sent through Care Everywhere. * ADHD: Adults: General Info ([place]iqu[place]) [facility]* Attachments The following attachments cannot be sent through Care Everywhere. 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 Continue current medications, Controlled Substance Agreement is on file and an [place] report was checked today, you were given a 3 months supply, follow-up in the office as scheduled. Relevant Medications dextroamphetamine-amphetamine (ADDERALL) 20 mg tablet (Start on 10/08/2018) cloNIDine HCl (CATAPRES) 0.1 MG tablet Other Visit Diagnoses Encounter for well adult exam without abnormal findings - Primary Attention Deficit Hyperactivity Disorder (ADHD) in Adults: Care Instructions Your Care Instructions Attention deficit hyperactivity disorder, or ADHD, is a condition that makes it hard to pay attention. So you may have problems when you try to focus, get organized, and finish tasks. It might make you more active than other people. Or you might do things without thinking first. ADHD is very common. It usually starts in senior recruitment consultant. Many adults don't realize they have it until their children are diagnosed. Then they become aware of their own symptoms. Doctors don't know what causes ADHD. But it often runs in families. ADHD can be treated with medicines, behavior training, and counseling. Treatment can improve your life. Follow-up care is a umaña part of your treatment and safety. Be sure to make and go to all appointments, and call your doctor if you are having problems. It's also a good idea to know your test resultsand keep a list of the medicines you take. How can you care for yourself at home? Learn all you can about ADHD. This will help you and your family understand it better. Take your medicines exactly as prescribed. Call your doctor if you think you are having a problem with your medicine. You will get more details on the specific medicines your doctor prescribes. If you miss a dose of your medicine, do not take an extra dose. If your doctor suggests counseling, find a counselor you like and trust. Talk openly and honestly. Be willing to make some changes. Find a support group for adults with ADHD. Talking to others with the same problems can help you feel better. It can also give you ideas about how to best cope with the condition. Get rid of distractions at your work space. Keep your desk clean. Try not to face a window or busy hallway. Use files, planners, and other tools to keep you organized. Limit use of alcohol, and do not use illegal drugs. People with ADHD tend to become addicted more easily than others. Tell your doctor if you need help to quit. Counseling, support groups, and sometimes medicines can help you stay free of alcohol or drugs. Get at least 30 minutes of physical activity on most days of the week. Exercise has been shown to help people cope with ADHD. Walking is a good choice. You also may want to do other activities, such as running, swimming, cycling, or playing tennis or team sports. When should you call for help? Watch closely for changes in your health, and be sure to contact your doctor if: You feel sad a lot or cry all the time. You have trouble sleeping, or you sleep too much. You find it hard to concentrate, make decisions, or remember things. You change how you normally eat. You feel guilty for no reason. Where can you learn more? Log into your personal health record on https://ViewsIQ.Lifetable and enter B196 in the Education box to learn more about Attention Deficit Hyperactivity Disorder (ADHD) in Adults: Care Instructions. Current as of: February 26, 2018 Content Version: 11.20055750-5503 [employer]. Care instructions adapted under license by your healthcare professional. If you have questions about a medical condition or this instruction, always ask your healthcare professional. [employer] disclaims any warranty or liability for your use of this information. Attention Deficit Hyperactivity Disorder (ADHD) in Adults: Care Instructions Your Care Instructions Attention deficit hyperactivity disorder, or ADHD, is a condition that makes it hard to pay attention. So you may have problems when you try to focus, get organized, and finish tasks. It might make you more active than other people. Or you might do things without thinking first. ADHD is very common. It usually starts in senior recruitment consultant. Many adults don't realize they have it until their children are diagnosed. Then they become aware of their own symptoms. Doctors don't know what causes ADHD. But it often runs in families. ADHD can be treated with medicines, behavior training, and counseling. Treatment can improve your life. Follow-up care is a umaña part of your treatment and safety. Be sure to make and go to all appointments, and call your doctor if you are having problems. It's also a good idea to know your test resultsand keep a list of the medicines you take. How can you care for yourself at home? Learn all you can about ADHD. This will help you and your family understand it better. Take your medicines exactly as prescribed. Call your doctor if you think you are having a problem with your medicine. You will get more details on the specific medicines your doctor prescribes. If you miss a dose of your medicine, do not take an extra dose. If your doctor suggests counseling, find a counselor you like and trust. Talk openly and honestly. Be willing to make some changes. Find a support group for adults with ADHD. Talking to others with the same problems can help you feel better. It can also give you ideas about how to best cope with the condition. Get rid of distractions at your work space. Keep your desk clean. Try not to face a window or busy hallway. Use files, planners, and other tools to keep you organized. Limit use of alcohol, and do not use illegal drugs. People with ADHD tend to become addicted more easily than others. Tell your doctor if you need help to quit. Counseling, support groups, and sometimes medicines can help you stay free of alcohol or drugs. Get at least 30 minutes of physical activity on most days of the week. Exercise has been shown to help people cope with ADHD. Walking is a good choice. You also may want to do other activities, such as running, swimming, cycling, or playing tennis or team sports. When should you call for help? Watch closely for changes in your health, and be sure to contact your doctor if: You feel sad a lot or cry all the time. You have trouble sleeping, or you sleep too much. You find it hard to concentrate, make decisions, or remember things. You change how you normally eat. You feel guilty for no reason. Where can you learn more? Log into your personal health record on https://Medypalt.Lifetable and enter B196 in the Education box to learn more about Attention Deficit Hyperactivity Disorder (ADHD) in Adults: Care Instructions. Current as of: February 26, 2018 Content Version: 11.9 7110-2793 [employer]. Care instructions adapted under license by your healthcare professional. If you have questions about a medical condition or this instruction, always ask your healthcare professional. [employer] disclaims any warranty or liability for your use of this information. in this encounter* Patient Instructions* Beth Cabral CNP - 11/13/2018 3:20 PM EDT Problem List Items Addressed This Visit Other ADHD - Primary Relevant Medications dextroamphetamine-amphetamine (ADDERALL) 30 mg tablet dextroamphetamine-amphetamine (ADDERALL) 30 mg tablet (Start on 12/13/2018) dextroamphetamine-amphetamine (ADDERALL) 30 mg tablet (Start on 01/12/2019) buPROPion (WELLBUTRIN XL) 150 MG 24 hr tablet Other Visit Diagnoses Encounter for well adult exam without abnormal findings Relevant Orders CBC and Differential Comprehensive Metabolic Panel Screening for lipid disorders Relevant Orders Lipid Panel Screening for thyroid disorder Relevant Orders TSH with Reflex Free T4 Depression, unspecified depression type Relevant Medications dextroamphetamine-amphetamine (ADDERALL) 30 mg tablet dextroamphetamine-amphetamine (ADDERALL) 30 mg tablet (Start on 12/13/2018) dextroamphetamine-amphetamine (ADDERALL) 30 mg tablet (Start on 01/12/2019) buPROPion (WELLBUTRIN XL) 150 MG 24 hr tablet You will not be able to have anything to eat or drink within a minimum of six hours before your testing. Lab results will be reviewed at your following appointment. Attention Deficit Hyperactivity Disorder (ADHD) in Adults: Care Instructions Your Care Instructions Attention deficit hyperactivity disorder, or ADHD, is a condition that makes it hard to pay attention. So you may have problems when you try to focus, get organized, and finish tasks. It might make you more active than other people. Or you might do things without thinking first. ADHD is very common. It usually starts in senior recruitment consultant. Many adults don't realize they have it until their children are diagnosed. Then they become aware of their own symptoms. Doctors don't know what causes ADHD. But it often runs in families. ADHD can be treated with medicines, behavior training, and counseling. Treatment can improve your life. Follow-up care is a umaña part of your treatment and safety. Be sure to make and go to all appointments, and call your doctor if you are having problems. It's also a good idea to know your test resultsand keep a list of the medicines you take. How can you care for yourself at home? Learn all you can about ADHD. This will help you and your family understand it better. Take your medicines exactly as prescribed. Call your doctor if you think you are having a problem with your medicine. You will get more details on the specific medicines your doctor prescribes. If you miss a dose of your medicine, do not take an extra dose. If your doctor suggests counseling, find a counselor you like and trust. Talk openly and honestly. Be willing to make some changes. Find a support group for adults with ADHD. Talking to others with the same problems can help you feel better. It can also give you ideas about how to best cope with the condition. Get rid of distractions at your work space. Keep your desk clean. Try not to face a window or busy hallway. Use files, planners, and other tools to keep you organized. Limit use of alcohol, and do not use illegal drugs. People with ADHD tend to become addicted more easily than others. Tell your doctor if you need help to quit. Counseling, support groups, and sometimes medicines can help you stay free of alcohol or drugs. Get at least 30 minutes of physical activity on most days of the week. Exercise has been shown to help people cope with ADHD. Walking is a good choice. You also may want to do other activities, such as running, swimming, cycling, or playing tennis or team sports. When should you call for help? Watch closely for changes in your health, and be sure to contact your doctor if: You feel sad a lot or cry all the time. You have trouble sleeping, or you sleep too much. You find it hard to concentrate, make decisions, or remember things. You change how you normally eat. You feel guilty for no reason. Where can you learn more? Log into your personal health record on https://ViewsIQ.Lifetable and enter B196 in the Education box to learn more about Attention Deficit Hyperactivity Disorder (ADHD) in Adults: Care Instructions. Current as of: February 26, 2018 Content Version: 12.0 3918-6385 [employer]. Care instructions adapted under license by your healthcare professional. If you have questions about a medical condition or this instruction, always ask your healthcare professional. [employer] disclaims any warranty or liability for your use of this information. documented in this encounter* Patient Instructions* Beth Cabral CNP - 02/21/2019 1:53 PM EDT Problem List Items Addressed This Visit Other ADHD I have ordered a 90 day supply of your adderall. This is a controlled substance which is regulated by the Federal government. New laws require you to be seen in the office every 90 days to continue this medication. You will also be required to do yearly urine drug test. Continue current medications, Controlled Substance Agreement is on file and an [place] report was checked today, you were given a 3 months supply, follow-up in the office as scheduled. Relevant Medications dextroamphetamine-amphetamine (ADDERALL) 30 mg tablet (Start on 04/28/2019) dextroamphetamine-amphetamine (ADDERALL) 30 mg tablet (Start on 03/29/2019) dextroamphetamine-amphetamine (ADDERALL) 30 mg tablet (Start on 02/27/2019) Attention Deficit Hyperactivity Disorder (ADHD) in Adults: Care Instructions Your Care Instructions Attention deficit hyperactivity disorder, or ADHD, is a condition that makes it hard to pay attention. So you may have problems when you try to focus, get organized, and finish tasks. It might make you more active than other people. Or you might do things without thinking first. ADHD is very common. It usually starts in senior recruitment consultant. Many adults don't realize they have it until their children are diagnosed. Then they become aware of their own symptoms. Doctors don't know what causes ADHD. But it often runs in families. ADHD can be treated with medicines, behavior training, and counseling. Treatment can improve your life. Follow-up care is a umaña part of your treatment and safety. Be sure to make and go to all appointments, and call your doctor if you are having problems. It's also a good idea to know your test resultsand keep a list of the medicines you take. How can you care for yourself at home? Learn all you can about ADHD. This will help you and your family understand it better. Take your medicines exactly as prescribed. Call your doctor if you think you are having a problem with your medicine. You will get more details on the specific medicines your doctor prescribes. If you miss a dose of your medicine, do not take an extra dose. If your doctor suggests counseling, find a counselor you like and trust. Talk openly and honestly. Be willing to make some changes. Find a support group for adults with ADHD. Talking to others with the same problems can help you feel better. It can also give you ideas about how to best cope with the condition. Get rid of distractions at your work space. Keep your desk clean. Try not to face a window or busy hallway. Use files, planners, and other tools to keep you organized. Limit use of alcohol, and do not use illegal drugs. People with ADHD tend to develop substance use disorder more easily than others. Tell your doctor if you need help to quit. Counseling, support groups, and sometimes medicines can help you stay free of alcohol or drugs. Get at least 30 minutes of physical activity on most days of the week. Exercise has been shown to help people cope with ADHD. Walking is a good choice. You also may want to do other activities, such as running, swimming, cycling, or playing tennis or team sports. When should you call for help? Watch closely for changes in your health, and be sure to contact your doctor if: You feel sad a lot or cry all the time. You have trouble sleeping, or you sleep too much. You find it hard to concentrate, make decisions, or remember things. You change how you normally eat. You feel guilty for no reason. Where can you learn more? Log into your personal health record on https://Medypalt.Lifetable and enter B196 in the Education box to learn more about Attention Deficit Hyperactivity Disorder (ADHD) in Adults: Care Instructions. Current as of: February 26, 2018 Content Version: 12.1 7160-5071 [employer]. Care instructions adapted under license by your healthcare professional. If you have questions about a medical condition or this instruction, always ask your healthcare professional. [employer] disclaims any warranty or liability for your use of this information. documented in this encounter* Patient Instructions* Beth Cabral CNP - 06/20/2019 8:42 AM EST Problem List Items Addressed This Visit Other ADHD I have ordered a 90 day supply of your adderall. This is a controlled substance which is regulated by the Federal government. New laws require you to be seen in the office every 90 days to continue this medication. You will also be required to do yearly urine drug test. Continue current medications, Controlled Substance Agreement is on file and an [place] report was checked today, you were given a 3 months supply, follow-up in the office as scheduled. Relevant Medications dextroamphetamine-amphetamine (ADDERALL) 30 mg tablet (Start on 08/19/2019) dextroamphetamine-amphetamine (ADDERALL) 30 mg tablet (Start on 07/20/2019) dextroamphetamine-amphetamine (ADDERALL) 30 mg tablet dextroamphetamine-amphetamine (ADDERALL) 10 mg tablet Attention Deficit Hyperactivity Disorder (ADHD) in Adults: Care Instructions Your Care Instructions Attention deficit hyperactivity disorder, or ADHD, is a condition that makes it hard to pay attention. So you may have problems when you try to focus, get organized, and finish tasks. It might make you more active than other people. Or you might do things without thinking first. ADHD is very common. It usually starts in senior recruitment consultant. Many adults don't realize they have it until their children are diagnosed. Then they become aware of their own symptoms. Doctors don't know what causes ADHD. But it often runs in families. ADHD can be treated with medicines, behavior training, and counseling. Treatment can improve your life. Follow-up care is a umaña part of your treatment and safety. Be sure to make and go to all appointments, and call your doctor if you are having problems. It's also a good idea to know your test resultsand keep a list of the medicines you take. How can you care for yourself at home? Learn all you can about ADHD. This will help you and your family understand it better. Take your medicines exactly as prescribed. Call your doctor if you think you are having a problem with your medicine. You will get more details on the specific medicines your doctor prescribes. If you miss a dose of your medicine, do not take an extra dose. If your doctor suggests counseling, find a counselor you like and trust. Talk openly and honestly. Be willing to make some changes. Find a support group for adults with ADHD. Talking to others with the same problems can help you feel better. It can also give you ideas about how to best cope with the condition. Get rid of distractions at your work space. Keep your desk clean. Try not to face a window or busy hallway. Use files, planners, and other tools to keep you organized. Limit use of alcohol, and do not use illegal drugs. People with ADHD tend to develop substance use disorder more easily than others. Tell your doctor if you need help to quit. Counseling, support groups, and sometimes medicines can help you stay free of alcohol or drugs. Get at least 30 minutes of physical activity on most days of the week. Exercise has been shown to help people cope with ADHD. Walking is a good choice. You also may want to do other activities, such as running, swimming, cycling, or playing tennis or team sports. When should you call for help? Watch closely for changes in your health, and be sure to contact your doctor if: You feel sad a lot or cry all the time. You have trouble sleeping, or you sleep too much. You find it hard to concentrate, make decisions, or remember things. You change how you normally eat. You feel guilty for no reason. Where can you learn more? Log into your personal health record on https://Medypalt.Lifetable and enter B196 in the Education box to learn more about Attention Deficit Hyperactivity Disorder (ADHD) in Adults: Care Instructions. Current as of: November 12, 2018 Content Version: 12.3 [employer]. Care instructions adapted under license by your healthcare professional. If you have questions about a medical condition or this instruction, always ask your healthcare professional. [employer] disclaims any warranty or liability for your use of this information. documented in this encounter* Patient Instructions* Beth Cabral CNP - 01/11/2020 8:42 PM EDT Problem List Items Addressed This Visit Other ADHD I have ordered blood work for you to have completed. Please have this completed at your earliest convenience. This blood work will need to be completed while fasting. This means nothing to eat or drink for 8 hours prior to having it drawn. You can however, drink water and take medications as ordered during this time. I will review your labs via [employer] or the office will with your results. I have ordered a 90 day supply of your adderall. This is a controlled substance which is regulated by the Federal government. New laws require you to be seen in the office every 90 days to continue this medication. You will also be required to do yearly urine drug test. Continue current medications, Controlled Substance Agreement is on file and an [place] report was checked today, you were given a 3 months supply, follow-up in the office as scheduled. Relevant Medications dextroamphetamine-amphetamine (ADDERALL XR) 30 MG 24 hr capsule (Start on 03/09/2020) dextroamphetamine-amphetamine (ADDERALL) 10 mg tablet dextroamphetamine-amphetamine (ADDERALL XR) 30 MG 24 hr capsule (Start on 02/08/2020) dextroamphetamine-amphetamine (ADDERALL XR) 30 MG 24 hr capsule Other Visit Diagnoses Well adult exam - Primary Relevant Orders CBC and Differential Comprehensive Metabolic Panel Screening for lipid disorders Relevant Orders Lipid Panel Attention Deficit Hyperactivity Disorder (ADHD) in Adults: Care Instructions Your Care Instructions Attention deficit hyperactivity disorder, or ADHD, is a condition that makes it hard to pay attention. So you may have problems when you try to focus, get organized, and finish tasks. It might make you more active than other people. Or you might do things without thinking first. ADHD is very common. It usually starts in senior recruitment consultant. Many adults don't realize they have it until their children are diagnosed. Then they become aware of their own symptoms. Doctors don't know what causes ADHD. But it often runs in families. ADHD can be treated with medicines, behavior training, and counseling. Treatment can improve your life. Follow-up care is a umaña part of your treatment and safety. Be sure to make and go to all appointments, and call your doctor if you are having problems. It's also a good idea to know your test resultsand keep a list of the medicines you take. How can you care for yourself at home? Learn all you can about ADHD. This will help you and your family understand it better. Take your medicines exactly as prescribed. Call your doctor if you think you are having a problem with your medicine. You will get more details on the specific medicines your doctor prescribes. If you miss a dose of your medicine, do not take an extra dose. If your doctor suggests counseling, find a counselor you like and trust. Talk openly and honestly. Be willing to make some changes. Find a support group for adults with ADHD. Talking to others with the same problems can help you feel better. It can also give you ideas about how to best cope with the condition. Get rid of distractions at your work space. Keep your desk clean. Try not to face a window or busy hallway. Use files, planners, and other tools to keep you organized. Limit use of alcohol, and do not use illegal drugs. People with ADHD tend to develop substance use disorder more easily than others. Tell your doctor if you need help to quit. Counseling, support groups, and sometimes medicines can help you stay free of alcohol or drugs. Get at least 30 minutes of physical activity on most days of the week. Exercise has been shown to help people cope with ADHD. Walking is a good choice. You also may want to do other activities, such as running, swimming, cycling, or playing tennis or team sports. When should you call for help? Watch closely for changes in your health, and be sure to contact your doctor if: You feel sad a lot or cry all the time. You have trouble sleeping, or you sleep too much. You find it hard to concentrate, make decisions, or remember things. You change how you normally eat. You feel guilty for no reason. Where can you learn more? Log into your personal health record on https://Medypalt.Lifetable and enter B196 in the Education box to learn more about Attention Deficit Hyperactivity Disorder (ADHD) in Adults: Care Instructions. Current as of: July 18, 2019 Content Version: 12.5 [employer]. Care instructions adapted under license by your healthcare professional. If you have questions about a medical condition or this instruction, always ask your healthcare professional. [employer] disclaims any warranty or liability for your use of this information. documented in this encounter* Patient Instructions* Beth Cabral CNP - 06/01/2020 12:12 PM EST Problem List Items Addressed This Visit Other ADHD I have ordered a 90 day supply of your adderall. This is a controlled substance which is regulated by the Federal government. New laws require you to be seen in the office every 90 days to continue this medication. You will also be required to do yearly urine drug test. Continue current medications, Controlled Substance Agreement is on file and an OARRS report was checked today, you were given a 3 months supply, follow-up in the office as scheduled. Relevant Medications dextroamphetamine-amphetamine (ADDERALL) 10 mg tablet dextroamphetamine-amphetamine (ADDERALL) 30 mg tablet (Start on 07/31/2020) dextroamphetamine-amphetamine (ADDERALL) 30 mg tablet (Start on 07/01/2020) dextroamphetamine-amphetamine (ADDERALL) 30 mg tablet ARIPiprazole (ABILIFY) 10 MG tablet Depression - Primary Continue the Wellbutrin, start taking Abilify once daily to help with your mood swings. Relevant Medications dextroamphetamine-amphetamine (ADDERALL) 10 mg tablet dextroamphetamine-amphetamine (ADDERALL) 30 mg tablet (Start on 07/31/2020) dextroamphetamine-amphetamine (ADDERALL) 30 mg tablet (Start on 07/01/2020) dextroamphetamine-amphetamine (ADDERALL) 30 mg tablet ARIPiprazole (ABILIFY) 10 MG tablet Mood disorder (HCC) Relevant Medications dextroamphetamine-amphetamine (ADDERALL) 10 mg tablet dextroamphetamine-amphetamine (ADDERALL) 30 mg tablet (Start on 07/31/2020) dextroamphetamine-amphetamine (ADDERALL) 30 mg tablet (Start on 07/01/2020) dextroamphetamine-amphetamine (ADDERALL) 30 mg tablet ARIPiprazole (ABILIFY) 10 MG tablet Attention Deficit Hyperactivity Disorder (ADHD) in Adults: Care Instructions Your Care Instructions Attention deficit hyperactivity disorder, or ADHD, is a condition that makes it hard to pay attention. So you may have problems when you try to focus, get organized, and finish tasks. It might make you more active than other people. Or you might do things without thinking first. ADHD is very common. It usually starts in senior recruitment consultant. Many adults don't realize they have it until their children are diagnosed. Then they become aware of their own symptoms. Doctors don't know what causes ADHD. But it often runs in families. ADHD can be treated with medicines, behavior training, and counseling. Treatment can improve your life. Follow-up care is a umaña part of your treatment and safety. Be sure to make and go to all appointments, and call your doctor if you are having problems. It's also a good idea to know your test resultsand keep a list of the medicines you take. How can you care for yourself at home? Learn all you can about ADHD. This will help you and your family understand it better. Take your medicines exactly as prescribed. Call your doctor if you think you are having a problem with your medicine. You will get more details on the specific medicines your doctor prescribes. If you miss a dose of your medicine, do not take an extra dose. If your doctor suggests counseling, find a counselor you like and trust. Talk openly and honestly. Be willing to make some changes. Find a support group for adults with ADHD. Talking to others with the same problems can help you feel better. It can also give you ideas about how to best cope with the condition. Get rid of distractions at your work space. Keep your desk clean. Try not to face a window or busy hallway. Use files, planners, and other tools to keep you organized. Limit use of alcohol, and do not use illegal drugs. People with ADHD tend to develop substance use disorder more easily than others. Tell your doctor if you need help to quit. Counseling, support groups, and sometimes medicines can help you stay free of alcohol or drugs. Get at least 30 minutes of physical activity on most days of the week. Exercise has been shown to help people cope with ADHD. Walking is a good choice. You also may want to do other activities, such as running, swimming, cycling, or playing tennis or team sports. When should you call for help? Watch closely for changes in your health, and be sure to contact your doctor if: You feel sad a lot or cry all the time. You have trouble sleeping, or you sleep too much. You find it hard to concentrate, make decisions, or remember things. You change how you normally eat. You feel guilty for no reason. Where can you learn more? Log into your personal health record on https://[employer]IQ[employer]Lifetable and enter B196 in the Education box to learn more about Attention Deficit Hyperactivity Disorder (ADHD) in Adults: Care Instructions. Current as of: March 10, 2020 Content Version: 12.7 [employer]. Care instructions adapted under license by your healthcare professional. If you have questions about a medical condition or this instruction, always ask your healthcare professional. [employer] disclaims any warranty or liability for your use of this information. documented in this encounter History of Present Illness * Beth Castillo CNP - 08/09/2018 8:25 AM EST OFFICE VISIT PROGRESS NOTE HPI Patient is a pleasant 37-year-old female with medical history of ADHD. She presents to the office to establish primary care as a new patient. She declines lab work at this time as she recently had it done at her job. She has no complaints and is doing well overall. Patient ADHD medicationhas been prescribed by her psychologist in [place] up to this point. She would like to have this office take over her ADHD care so she does not have to drive clear to [place] monthly. ADHD- Symptoms began 20-30 years ago and is described as inattentive, impulsiveness, hyperactivity. Behaviors create problems at home, work, and socially. It occurs daily and symptoms are aggravated by deadlines, distractions, stress, and tasks requiring attention to detail. Relieving factors include behavior therapy and stimulant medications. Associated symptoms include bored easily, disorganization, distracted easily, impulsiveness, loses/forgets things, restlessness, short attention span and talksexcessively. Positive for impulsivity. Positive for depression and anxiety. Current treatment include Adderall. Denies weight loss/gain. Avoids taking medication with citrus fruit and juice. Has seenpsychologist in the past for evaluation. The following portions of the patient's history were reviewed and updated as appropriate: allergies, current medications and problem list. Family History Problem Relation Age of Onset Diabetes Father Hypertension Father Clotting disorder Sister Lung cancer Maternal Grandfather Bone cancer Paternal Grandfather Arthritis Mother Hypertension Mother Mental illness Mother Depression Mother Asthma Brother Hypertension Paternal Grandmother Hyperlipidemia Paternal Grandmother Heart disease Paternal Grandmother Hypertension Brother Social History Socioeconomic History Marital status: Spouse name: None Number of children: 3 Years of education: None Highest education level: None Social Needs Financial resource strain: Not hard at all Food insecurity - worry: Never true Food insecurity - inability: Never true Transportation needs - medical: No Transportation needs - non-medical: No Occupational History None Tobacco Use Smoking status: Current Every Day Smoker Packs/day: 0.50 Years: 19.00 Pack years: 9.50 Types: Cigarettes Start date: 04/18/1999 Smokeless tobacco: Never Used Substance and Sexual Activity Alcohol use: Yes Frequency: Monthly or less Binge frequency: Less than monthly Drug use: Never Sexual activity: Yes Partners: Male control/protection: Surgical Other Topics Concern None Social History Narrative None Past Surgical History: Procedure Laterality Date HYSTERECTOMY 2007 Allergies Allergen Reactions Augmentin [Amoxicillin-Pot Clavulanate] Hives Medication List Accurate as of 08/09/18 9:23 AM. If you have any questions, ask your nurse or doctor. CHANGE how you take these medications dextroamphetamine-amphetamine 20 mg tablet Commonly known as: ADDERALL Take 1 (one) tablet (20 mg total) by mouth 2 (two) times a day Start: 10/08/18. Start taking on: 10/08/2018 What changed: These instructions start on 10/08/2018. If you are unsure what to do until then, ask your doctor or other care provider. Changed by: Beth Castillo CNP CONTINUE taking these medications cloNIDine HCl 0.1 MG tablet Commonly known as: CATAPRES Take 1 (one) tablet (0.1 mg total) by mouth nightly as needed . Where to Get Your Medications These medications were sent to [address] [id number] cloNIDine HCl 0.1 MG tablet dextroamphetamine-amphetamine 20 mg tablet Review of Systems Review of Systems Constitutional: Negative. Negative for activity change. Respiratory: Negative. Negative for chest tightness and shortness of breath. Cardiovascular: Negative for chest pain and palpitations. Gastrointestinal: Negative. Negative for abdominal pain. Genitourinary: Negative. Musculoskeletal: Negative. Skin: Negative. Neurological: Negative for weakness. Psychiatric/Behavioral: Negative for sleep disturbance and suicidal ideas. The patient is nervous/anxious. Vitals: 08/09/18 0824 BP: 125/82 BP Location: Right arm Patient Position: Sitting BP Cuff Size: Adult Pulse: 92 Resp: 18 Temp: 98.4 F (36.9 C) TempSrc: Temporal SpO2: 94% Weight: 91.9 kg (202 lb 8 oz) Height: 5' 4.5 Body mass index is 34.22 kg/m . Physical Exam Physical Exam Constitutional: She is oriented to person, place, and time. She appears well- developed and well-nourished. HENT: Head: Normocephalic. Neck: Normal range of motion. Cardiovascular: Normal rate, regular rhythm and normal heart sounds. Pulmonary/Chest: Effort normal and breath sounds normal. Abdominal: Soft. Bowel sounds are normal. Musculoskeletal: Normal range of motion. Neurological: She is alert and oriented to person, place, and time. Skin: Skin is warm and dry. Psychiatric: Judgment and thought content normal. Her mood appears anxious. She is hyperactive. Cognition and memory are normal. She exhibits a depressed mood. She is inattentive. Nursing note and vitals reviewed. OARRS/NARxCHECK Report Received and Assessed: 08/09/18 Assessment/Plan Problem List Items Addressed This Visit ADHD Chronic, stable. Continue current medications, Controlled Substance Agreement is on file and an OARRS report was checked today, you were given a 3 months supply, follow-up in the office as scheduled. Relevant Medications dextroamphetamine-amphetamine (ADDERALL) 20 mg tablet (Start on 10/08/2018) cloNIDine HCl (CATAPRES) 0.1 MG tablet Other Visit Diagnoses Encounter for well adult exam without abnormal findings - Primary Goals None For any new medications prescribed today, patient was educated about indications for the medication, how to take the medication and potential side effects of the medications. in this encounter* Beth Cabral CNP - 11/13/2018 3:21 PM EDT OFFICE VISIT PROGRESS NOTE HPI Patient is a pleasant 37-year-old female with medical history of ADHD. Patient is tolerating her Adderall well but feels that her symptoms could be better controlled. She is also requestinglab work to be completed at her convenience as she did not come to the office fasting. Depression Visit Type: follow-up Patient presents with the following symptoms: depressed mood, excessive worry, fatigue, nervousness/anxiety and weight gain. Patient is not experiencing: insomnia, palpitations, panic, shortness of breath, suicidal ideas, suicidal planning and thoughts of . Frequency of symptoms: most days Severity: moderate Sleep quality: fair Nighttime awakenings: occasional Compliance with medications: 76-100% ADHD- Symptoms began 20-30 years ago and is described as inattentive, impulsiveness, hyperactivity. Behaviors create problems at home, work, and socially. It occurs daily and symptoms are aggravated by deadlines, distractions, stress, and tasks requiring attention to detail. Relieving factors include behavior therapy and stimulant medications. Associated symptoms include bored easily, disorganization, distracted easily, impulsiveness, loses/forgets things, restlessness, short attention span and talksexcessively. Positive for impulsivity. Positive for depression and anxiety. Current treatment include Adderall. Denies weight loss/gain. Avoids taking medication with citrus fruit and juice. Has seenpsychologist in the past for evaluation. The following portions of the patient's history were reviewed and updated as appropriate: allergies, current medications and problem list. Family History Problem Relation Age of Onset Diabetes Father Hypertension Father Clotting disorder Sister Lung cancer Maternal Grandfather Bone cancer Paternal Grandfather Arthritis Mother Hypertension Mother Mental illness Mother Depression Mother Asthma Brother Hypertension Paternal Grandmother Hyperlipidemia Paternal Grandmother Heart disease Paternal Grandmother Hypertension Brother Social History Socioeconomic History Marital status: Spouse name: Not on file Number of children: 3 Years of education: Not on file Highest education level: Not on file Occupational History Not on file Social Needs Financial resource strain: Not hard at all Food insecurity: Worry: Never true Inability: Never true Transportation needs: Medical: No Non-medical: No Tobacco Use Smoking status: Current Every Day Smoker Packs/day: 0.50 Years: 19.00 Pack years: 9.50 Types: Cigarettes Start date: 04/18/1999 Smokeless tobacco: Never Used Substance and Sexual Activity Alcohol use: Yes Frequency: Monthly or less Binge frequency: Less than monthly Drug use: Never Sexual activity: Yes Partners: Male control/protection: Surgical Lifestyle Physical activity: Days per week: 0 days Minutes per session: 0 min Stress: Rather much Relationships Social connections: Talks on phone: Three times a week Gets together: Three times a week Attends sabianist service: Never Active member of club or organization: No Attends meetings of clubs or organizations: Never Relationship status: Other Topics Concern Not on file Social History Narrative Not on file Past Surgical History: Procedure Laterality Date HYSTERECTOMY 2007 Allergies Allergen Reactions Augmentin [Amoxicillin-Pot Clavulanate] Hives Patient's Medications New Prescriptions BUPROPION (WELLBUTRIN XL) 150 MG 24 HR TABLET Take 1 (one) tablet (150 mg total) by mouth daily . DEXTROAMPHETAMINE-AMPHETAMINE (ADDERALL) 30 MG TABLET Take 1 (one) tablet (30 mg total) by mouth 2 (two) times a day . DEXTROAMPHETAMINE-AMPHETAMINE (ADDERALL) 30 MG TABLET Take 1 (one) tablet (30 mg total) by mouth 2 (two) times a day Start: 12/13/18. DEXTROAMPHETAMINE-AMPHETAMINE (ADDERALL) 30 MG TABLET Take 1 (one) tablet (30 mg total) by mouth 2 (two) times a day Start: 01/12/19. Previous Medications CLONIDINE HCL (CATAPRES) 0.1 MG TABLET Take 1 (one) tablet (0.1 mg total) by mouth nightly as needed . Modified Medications No medications on file Discontinued Medications DEXTROAMPHETAMINE-AMPHETAMINE (ADDERALL) 20 MG TABLET Take 1 (one) tablet (20 mg total) by mouth 2 (two) times a day Start: 10/08/18. Review of Systems Review of Systems Constitutional: Positive for weight gain. Negative for activity change. Respiratory: Negative. Negative for chest tightness and shortness of breath. Cardiovascular: Negative for chest pain and palpitations. Gastrointestinal: Negative. Negative for abdominal pain. Genitourinary: Negative. Musculoskeletal: Negative. Skin: Negative. Neurological: Negative for weakness. Psychiatric/Behavioral: Negative for sleep disturbance and suicidal ideas. The patient is nervous/anxious. The patient does not have insomnia. Vitals: 11/13/18 1434 BP: 119/79 BP Location: Right arm Patient Position: Sitting BP Cuff Size: Adult Pulse: 81 Resp: 18 Temp: 98.1 F (36.7 C) TempSrc: Temporal SpO2: 98% Weight: 90.7 kg (200 lb) Body mass index is 33.8 kg/m . Physical Exam Physical Exam Constitutional: She is oriented to person, place, and time. She appears well- developed and well-nourished. HENT: Head: Normocephalic. Neck: Normal range of motion. Cardiovascular: Normal rate, regular rhythm and normal heart sounds. Pulmonary/Chest: Effort normal and breath sounds normal. Abdominal: Soft. Bowel sounds are normal. Musculoskeletal: Normal range of motion. Neurological: She is alert and oriented to person, place, and time. Skin: Skin is warm and dry. Psychiatric: Judgment and thought content normal. Her mood appears anxious. She is hyperactive. Cognition and memory are normal. She exhibits a depressed mood. She is inattentive. Nursing note and vitals reviewed. OARRS/NARxCHECK Report Received and Assessed: 11/13/18 Date controlled substance agreement signed: 08/09/18 Assessment/Plan Problem List Items Addressed This Visit Other ADHD - Primary Relevant Medications dextroamphetamine-amphetamine (ADDERALL) 30 mg tablet dextroamphetamine-amphetamine (ADDERALL) 30 mg tablet (Start on 12/13/2018) dextroamphetamine-amphetamine (ADDERALL) 30 mg tablet (Start on 01/12/2019) buPROPion (WELLBUTRIN XL) 150 MG 24 hr tablet Other Visit Diagnoses Encounter for well adult exam without abnormal findings Relevant Orders CBC and Differential Comprehensive Metabolic Panel Screening for lipid disorders Relevant Orders Lipid Panel Screening for thyroid disorder Relevant Orders TSH with Reflex Free T4 Depression, unspecified depression type Relevant Medications dextroamphetamine-amphetamine (ADDERALL) 30 mg tablet dextroamphetamine-amphetamine (ADDERALL) 30 mg tablet (Start on 12/13/2018) dextroamphetamine-amphetamine (ADDERALL) 30 mg tablet (Start on 01/12/2019) buPROPion (WELLBUTRIN XL) 150 MG 24 hr tablet Goals None For any new medications prescribed today, patient was educated about indications for the medication, how to take the medication and potential side effects of the medications. documented in this encounter* Beth Cabral CNP - 02/21/2019 1:45 PM EDT OFFICE VISIT PROGRESS NOTE HPI Patient is a pleasant 37-year-old female with medical history of ADHD. Patient is tolerating her Adderall well but feels that her symptoms could be better controlled. ADD goal: Participate in activities with children, complete work task on time with minimal distraction. Patient states she feels her ADD treatment goals are currently being met. ADHD- Symptoms began 20-30 years ago and is described as inattentive, impulsiveness, hyperactivity. Behaviors create problems at home, work, and socially. It occurs daily and symptoms are aggravated by deadlines, distractions, stress, and tasks requiring attention to detail. Relieving factors include behavior therapy and stimulant medications. Associated symptoms include bored easily, disorganization, distracted easily, impulsiveness, loses/forgets things, restlessness, short attention span and talksexcessively. Positive for impulsivity. Positive for depression and anxiety. Current treatment include Adderall. Denies weight loss/gain. The following portions of the patient's history were reviewed and updated as appropriate: allergies, current medications and problem list. Family History Problem Relation Age of Onset Diabetes Father Hypertension Father Clotting disorder Sister Lung cancer Maternal Grandfather Bone cancer Paternal Grandfather Arthritis Mother Hypertension Mother Mental illness Mother Depression Mother Asthma Brother Hypertension Paternal Grandmother Hyperlipidemia Paternal Grandmother Heart disease Paternal Grandmother Hypertension Brother Social History Socioeconomic History Marital status: Spouse name: Not on file Number of children: 3 Years of education: Not on file Highest education level: Not on file Occupational History Not on file Social Needs Financial resource strain: Not hard at all Food insecurity: Worry: Never true Inability: Never true Transportation needs: Medical: No Non-medical: No Tobacco Use Smoking status: Current Every Day Smoker Packs/day: 0.50 Years: 19.00 Pack years: 9.50 Types: Cigarettes Start date: 04/18/1999 Smokeless tobacco: Never Used Substance and Sexual Activity Alcohol use: Yes Frequency: Monthly or less Binge frequency: Less than monthly Drug use: Never Sexual activity: Yes Partners: Male control/protection: Surgical Lifestyle Physical activity: Days per week: 0 days Minutes per session: 0 min Stress: Rather much Relationships Social connections: Talks on phone: Three times a week Gets together: Three times a week Attends sabianist service: Never Active member of club or organization: No Attends meetings of clubs or organizations: Never Relationship status: Other Topics Concern Not on file Social History Narrative Not on file Past Surgical History: Procedure Laterality Date HYSTERECTOMY 2008 Allergies Allergen Reactions Augmentin [Amoxicillin-Pot Clavulanate] Hives Patient's Medications New Prescriptions No medications on file Previous Medications BUPROPION (WELLBUTRIN XL) 150 MG 24 HR TABLET Take 1 (one) tablet (150 mg total) by mouth daily . CLONIDINE HCL (CATAPRES) 0.1 MG TABLET Take 1 (one) tablet (0.1 mg total) by mouth nightly as needed . Modified Medications Modified Medication Previous Medication DEXTROAMPHETAMINE-AMPHETAMINE (ADDERALL) 30 MG TABLET dextroamphetamine- amphetamine (ADDERALL) 30 mg tablet Take 1 (one) tablet (30 mg total) by mouth 2 (two) times a day Start: 04/28/19. Take 1 (one) tablet(30 mg total) by mouth 2 (two) times a day . DEXTROAMPHETAMINE-AMPHETAMINE (ADDERALL) 30 MG TABLET dextroamphetamine- amphetamine (ADDERALL) 30 mg tablet Take 1 (one) tablet (30 mg total) by mouth 2 (two) times a day Start: 03/29/19. Take 1 (one) tablet(30 mg total) by mouth 2 (two) times a day Start: 01/12/19. DEXTROAMPHETAMINE-AMPHETAMINE (ADDERALL) 30 MG TABLET dextroamphetamine- amphetamine (ADDERALL) 30 mg tablet Take 1 (one) tablet (30 mg total) by mouth 2 (two) times a day Start: 02/27/19. Take 1 (one) tablet(30 mg total) by mouth 2 (two) times a day Start: 12/13/18. Discontinued Medications No medications on file Review of Systems Review of Systems Constitutional: Negative for activity change. HENT: Negative. Respiratory: Negative. Negative for chest tightness. Cardiovascular: Negative for chest pain. Gastrointestinal: Negative. Negative for abdominal pain. Genitourinary: Negative. Musculoskeletal: Negative. Skin: Negative. Allergic/Immunologic: Negative. Neurological: Negative for dizziness, speech difficulty, weakness, light- headedness and headaches. Hematological: Negative for adenopathy. Does not bruise/bleed easily. Psychiatric/Behavioral: Positive for dysphoric mood. Negative for self-injury, sleep disturbance and suicidal ideas. Vitals: 02/21/19 1338 BP: 112/79 BP Location: Left arm Patient Position: Sitting BP Cuff Size: Adult Pulse: 84 Temp: 97.5 F (36.4 C) TempSrc: Oral SpO2: 97% Weight: 91 kg (200 lb 9.6 oz) Height: 5' 3 Body mass index is 35.53 kg/m . Physical Exam Physical Exam Constitutional: She is oriented to person, place, and time. She appears well- developed and well-nourished. HENT: Head: Normocephalic. Neck: Normal range of motion. Cardiovascular: Normal rate, regular rhythm and normal heart sounds. Pulmonary/Chest: Effort normal and breath sounds normal. Abdominal: Soft. Bowel sounds are normal. Musculoskeletal: Normal range of motion. Neurological: She is alert and oriented to person, place, and time. Skin: Skin is warm and dry. Psychiatric: Judgment and thought content normal. Her mood appears anxious. She is hyperactive. Cognition and memory are normal. She exhibits a depressed mood. She is inattentive. Nursing note and vitals reviewed. OARRS/[place] Report Received and Assessed: 02/21/19 Date controlled substance agreement signed: 08/09/18 Date of last drug screen: 02/21/19 Assessment/Plan Problem List Items Addressed This Visit Other ADHD I have ordered a 90 day supply of your adderall. This is a controlled substance which is regulated by the Federal government. New laws require you to be seen in the office every 90 days to continue this medication. You will also be required to do yearly urine drug test. Continue current medications, Controlled Substance Agreement is on file and an OARRS report was checked today, you were given a 3 months supply, follow-up in the office as scheduled. Relevant Medications dextroamphetamine-amphetamine (ADDERALL) 30 mg tablet (Start on 04/28/2019) dextroamphetamine-amphetamine (ADDERALL) 30 mg tablet (Start on 03/29/2019) dextroamphetamine-amphetamine (ADDERALL) 30 mg tablet (Start on 02/27/2019) Goals None For any new medications prescribed today, patient was educated about indications for the medication, how to take the medication and potential side effects of the medications. documented in this encounter* Beth Cabral CNP - 06/20/2019 8:20 AM EST OFFICE VISIT PROGRESS NOTE HPI Patient is a pleasant 38 y.o. female with a past medical history depression, anxiety, ADHD, hidradenitis suppurativa presenting to the office for medication refill for her ADHD ADD- Onset: Chronic, worsening Symptoms: Inattentiveness, impulsiveness, easily bored, disorganized, restless, short attention span with anxiety and depression. 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 She has used Adderall XR in the past which worked better for her but due to insurance cannot afford this at this time. She will have a new insurance in July for us to possibly restart the XR at her next appointment. Pain: Denies pain Treatment: Adderall 30 mg daily Effectiveness: Significant improvement of symptoms Adherence: Takes 7 days/week Adverse effects: Tolerates well, denies side effects Lab: October 2018 Diet/exercise: No formal diet or exercise ADD goal: Participate in activities with children, complete work task on time with minimal distraction. Patient states she feels her ADD treatment goals are not currently being met due to new job obligations The following portions of the patient's history were reviewed and updated as appropriate: allergies, current medications and problem list. Family History Problem Relation Age of Onset Diabetes Father Hypertension Father Clotting disorder Sister Lung cancer Maternal Grandfather Bone cancer Paternal Grandfather Arthritis Mother Hypertension Mother Mental illness Mother Depression Mother Asthma Brother Hypertension Paternal Grandmother Hyperlipidemia Paternal Grandmother Heart disease Paternal Grandmother Hypertension Brother Social History Socioeconomic History Marital status: Spouse name: Not on file Number of children: 3 Years of education: Not on file Highest education level: Not on file Occupational History Not on file Social Needs Financial resource strain: Not hard at all Food insecurity Worry: Never true Inability: Never true Transportation needs Medical: No Non-medical: No Tobacco Use Smoking status: Current Every Day Smoker Packs/day: 0.50 Years: 19.00 Pack years: 9.50 Types: Cigarettes Start date: 04/18/1999 Smokeless tobacco: Never Used Substance and Sexual Activity Alcohol use: Yes Frequency: Monthly or less Binge frequency: Less than monthly Drug use: Never Sexual activity: Yes Partners: Male control/protection: Surgical Lifestyle Physical activity Days per week: 0 days Minutes per session: 0 min Stress: Rather much Relationships Social connections Talks on phone: Three times a week Gets together: Three times a week Attends sabianist service: Never Active member of club or organization: No Attends meetings of clubs or organizations: Never Relationship status: Other Topics Concern Not on file Social History Narrative Not on file Past Surgical History: Procedure Laterality Date HYSTERECTOMY 2007 Allergies Allergen Reactions Augmentin [Amoxicillin-Pot Clavulanate] Hives Patient's Medications New Prescriptions DEXTROAMPHETAMINE-AMPHETAMINE (ADDERALL) 10 MG TABLET Take 1 (one) tablet (10 mg total) by mouth daily as needed . Previous Medications CLONIDINE HCL (CATAPRES) 0.1 MG TABLET Take 1 (one) tablet (0.1 mg total) by mouth nightly as needed . Modified Medications Modified Medication Previous Medication DEXTROAMPHETAMINE-AMPHETAMINE (ADDERALL) 30 MG TABLET dextroamphetamine- amphetamine (ADDERALL) 30 mg tablet Take 1 (one) tablet (30 mg total) by mouth 2 (two) times a day Start: 08/19/19. Take 1 (one) tablet(30 mg total) by mouth 2 (two) times a day Start: 04/28/19. DEXTROAMPHETAMINE-AMPHETAMINE (ADDERALL) 30 MG TABLET dextroamphetamine- amphetamine (ADDERALL) 30 mg tablet Take 1 (one) tablet (30 mg total) by mouth 2 (two) times a day Start: 07/20/19. Take 1 (one) tablet(30 mg total) by mouth 2 (two) times a day Start: 03/29/19. DEXTROAMPHETAMINE-AMPHETAMINE (ADDERALL) 30 MG TABLET dextroamphetamine- amphetamine (ADDERALL) 30 mg tablet Take 1 (one) tablet (30 mg total) by mouth 2 (two) times a day . Take 1 (one) tablet (30 mg total) by mouth 2 (two) times a day Start: 02/27/19. Discontinued Medications BUPROPION (WELLBUTRIN XL) 150 MG 24 HR TABLET Take 1 (one) tablet (150 mg total) by mouth daily . Review of Systems Review of Systems Constitutional: Negative for activity change. HENT: Negative. Respiratory: Negative. Negative for chest tightness. Cardiovascular: Negative for chest pain. Gastrointestinal: Negative. Negative for abdominal pain. Genitourinary: Negative. Musculoskeletal: Negative. Skin: Negative. Allergic/Immunologic: Negative. Neurological: Negative for dizziness, speech difficulty, weakness, light- headedness and headaches. Hematological: Negative for adenopathy. Does not bruise/bleed easily. Psychiatric/Behavioral: Positive for dysphoric mood. Negative for self-injury, sleep disturbance and suicidal ideas. Vitals: 06/20/19 0821 BP: 131/79 BP Location: Left arm Patient Position: Sitting BP Cuff Size: Adult Pulse: (!) 101 Resp: 18 Temp: 97.9 F (36.6 C) TempSrc: Temporal SpO2: 96% Weight: 92.5 kg (203 lb 14.4 oz) Body mass index is 36.12 kg/m . Physical Exam Physical Exam Vitals signs and nursing note reviewed. Constitutional: Appearance: She is well-developed. HENT: Head: Normocephalic. Neck: Musculoskeletal: Normal range of motion. Cardiovascular: Rate and Rhythm: Normal rate and regular rhythm. Heart sounds: Normal heart sounds. Pulmonary: Effort: Pulmonary effort is normal. Breath sounds: Normal breath sounds. Abdominal: General: Bowel sounds are normal. Palpations: Abdomen is soft. Musculoskeletal: Normal range of motion. Skin: General: Skin is warm and dry. Neurological: Mental Status: She is alert and oriented to person, place, and time. Psychiatric: Attention and Perception: She is inattentive. Mood and Affect: Mood is anxious and depressed. Behavior: Behavior is hyperactive. Thought Content: Thought content normal. Judgment: Judgment normal. OARRS/NARxCHECK Report Received and Assessed: 06/20/19 Date controlled substance agreement signed: 08/09/18 Date of last drug screen: 02/21/19 Assessment/Plan Problem List Items Addressed This Visit Other ADHD I have added an additional 10 mg dose to be used as needed on days that you work to maintain focus throughout your 12-hour shift. I have ordered a 90 day supply of your adderall. This is a controlled substance which is regulated by the Federal government. New laws require you to be seen in the office every 90 days to continue this medication. You will also be required to do yearly urine drug test. Continue current medications, Controlled Substance Agreement is on file and an OARRS report was checked today, you were given a 3 months supply, follow-up in the office as scheduled. Relevant Medications dextroamphetamine-amphetamine (ADDERALL) 30 mg tablet (Start on 08/19/2019) dextroamphetamine-amphetamine (ADDERALL) 30 mg tablet (Start on 07/20/2019) dextroamphetamine-amphetamine (ADDERALL) 30 mg tablet dextroamphetamine-amphetamine (ADDERALL) 10 mg tablet For any new medications prescribed today, patient was educated about indications for the medication, how to take the medication and potential side effects of the medications. Please note: Portions of this chart may have been created with [employer] voice recognition software. Occasional wrong-word or sound-like substitutions may have occurred due to inherent limitations of the voice recognition software. Please read the chart carefully and recognize, using context, where the substitutions have occurred. documented in this encounter* Beth Cabral CNP - 01/09/2020 10:20 AM EDT OFFICE VISIT PROGRESS NOTE HPI Patient is a pleasant 39 y.o. female with a past medical history depression, anxiety, ADHD, hidradenitis suppurativa presenting to the office for medication refill for her ADHD. ADD- Onset: Chronic, worsening Symptoms: Inattentiveness, impulsiveness, easily bored, disorganized, restless, short attention span with anxiety and depression. 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 She has used Adderall XR in the past which worked better for her, insurance will now cover XR. Pain: Denies pain Treatment: Adderall and ritalin in the past. We will change to Adderall XR that worked well in the past Effectiveness: Significant improvement of symptoms Adherence: Takes 7 days/week Adverse effects: Tolerates well, denies side effects Lab: October 2018 Diet/exercise: No formal diet or exercise ADD goal: Participate in activities with children, complete work task on time with minimal distraction. Patient states she feels her ADD treatment goals are not currently being met due to new job obligations The following portions of the patient's history were reviewed and updated as appropriate: allergies, current medications and problem list. Family History Problem Relation Age of Onset Diabetes Father Hypertension Father Clotting disorder Sister Lung cancer Maternal Grandfather Bone cancer Paternal Grandfather Arthritis Mother Hypertension Mother Mental illness Mother Depression Mother Asthma Brother Hypertension Paternal Grandmother Hyperlipidemia Paternal Grandmother Heart disease Paternal Grandmother Hypertension Brother Social History Socioeconomic History Marital status: Spouse name: Not on file Number of children: 3 Years of education: Not on file Highest education level: Not on file Occupational History Not on file Social Needs Financial resource strain: Not hard at all Food insecurity Worry: Never true Inability: Never true Transportation needs Medical: No Non-medical: No Tobacco Use Smoking status: Current Every Day Smoker Packs/day: 0.50 Years: 19.00 Pack years: 9.50 Types: Cigarettes Start date: 04/18/1999 Smokeless tobacco: Never Used Substance and Sexual Activity Alcohol use: Yes Frequency: Monthly or less Binge frequency: Less than monthly Drug use: Never Sexual activity: Yes Partners: Male control/protection: Surgical Lifestyle Physical activity Days per week: 0 days Minutes per session: 0 min Stress: Rather much Relationships Social connections Talks on phone: Three times a week Gets together: Three times a week Attends sabianist service: Never Active member of club or organization: No Attends meetings of clubs or organizations: Never Relationship status: Other Topics Concern Not on file Social History Narrative Not on file Past Surgical History: Procedure Laterality Date HYSTERECTOMY 2008 Allergies Allergen Reactions Augmentin [Amoxicillin-Pot Clavulanate] Hives Clavulanic Acid Penicillins Patient's Medications New Prescriptions DEXTROAMPHETAMINE-AMPHETAMINE (ADDERALL XR) 30 MG 24 HR CAPSULE Take 1 (one) capsule (30 mg total) by mouth every morning Start: 03/09/20. DEXTROAMPHETAMINE-AMPHETAMINE (ADDERALL XR) 30 MG 24 HR CAPSULE Take 1 (one) capsule (30 mg total) by mouth every morning Start: 02/08/20. DEXTROAMPHETAMINE-AMPHETAMINE (ADDERALL XR) 30 MG 24 HR CAPSULE Take 1 (one) capsule (30 mg total) by mouth every morning . Previous Medications CLONIDINE HCL (CATAPRES) 0.1 MG TABLET Take 1 (one) tablet (0.1 mg total) by mouth nightly as needed . Modified Medications Modified Medication Previous Medication DEXTROAMPHETAMINE-AMPHETAMINE (ADDERALL) 10 MG TABLET dextroamphetamine- amphetamine (ADDERALL) 10 mg tablet Take 1 (one) tablet (10 mg total) by mouth daily as needed . Take 1 (one) tablet (10 mg total) by mouth daily as needed . Discontinued Medications DEXTROAMPHETAMINE-AMPHETAMINE (ADDERALL) 30 MG TABLET Take 1 (one) tablet (30 mg total) by mouth 2 (two) times a day Start: 12/02/19. DEXTROAMPHETAMINE-AMPHETAMINE (ADDERALL) 30 MG TABLET Take 1 (one) tablet (30 mg total) by mouth 2 (two) times a day Start: 11/02/19. DEXTROAMPHETAMINE-AMPHETAMINE (ADDERALL) 30 MG TABLET Take 1 (one) tablet (30 mg total) by mouth 2 (two) times a day . Review of Systems Review of Systems Constitutional: Negative for activity change. HENT: Negative. Respiratory: Negative. Negative for chest tightness. Cardiovascular: Negative for chest pain. Gastrointestinal: Negative. Negative for abdominal pain. Genitourinary: Negative. Musculoskeletal: Negative. Skin: Negative. Allergic/Immunologic: Negative. Neurological: Negative for dizziness, speech difficulty, weakness, light- headedness and headaches. Hematological: Negative for adenopathy. Does not bruise/bleed easily. Psychiatric/Behavioral: Positive for dysphoric mood. Negative for self-injury, sleep disturbance and suicidal ideas. Vitals: 01/09/20 1023 BP: 116/80 BP Location: Right arm Patient Position: Sitting BP Cuff Size: X-large Adult Pulse: 94 Resp: 16 Temp: 97.8 F (36.6 C) TempSrc: Oral SpO2: 98% Weight: 94.4 kg (208 lb 3.2 oz) Body mass index is 36.88 kg/m . Physical Exam Physical Exam Vitals signs and nursing note reviewed. Constitutional: Appearance: She is well-developed. HENT: Head: Normocephalic. Neck: Musculoskeletal: Normal range of motion. Cardiovascular: Rate and Rhythm: Normal rate and regular rhythm. Heart sounds: Normal heart sounds. Pulmonary: Effort: Pulmonary effort is normal. Breath sounds: Normal breath sounds. Abdominal: General: Bowel sounds are normal. Palpations: Abdomen is soft. Musculoskeletal: Normal range of motion. Skin: General: Skin is warm and dry. Neurological: Mental Status: She is alert and oriented to person, place, and time. Psychiatric: Attention and Perception: She is inattentive. Mood and Affect: Mood is anxious and depressed. Behavior: Behavior is hyperactive. Thought Content: Thought content normal. Judgment: Judgment normal. OARRS/NARxCHECK Report Received and Assessed: 01/09/2020 Date controlled substance agreement signed: 01/09/2020 Date of last drug screen: 02/21/2019 Functional Assessment: No data found Assessment/Plan Problem List Items Addressed This Visit Other ADHD I have ordered blood work for you to have completed. Please have this completed at your earliest convenience. This blood work will need to be completed while fasting. This means nothing to eat or drink for 8 hours prior to having it drawn. You can however, drink water and take medications as ordered during this time. I will review your labs via [facility] or the office will with your results. I have ordered a 90 day supply of your adderall. This is a controlled substance which is regulated by the Federal government. New laws require you to be seen in the office every 90 days to continue this medication. You will also be required to do yearly urine drug test. Continue current medications, Controlled Substance Agreement is on file and an OARRS report was checked today, you were given a 3 months supply, follow-up in the office as scheduled. Relevant Medications dextroamphetamine-amphetamine (ADDERALL XR) 30 MG 24 hr capsule (Start on 03/09/2020) dextroamphetamine-amphetamine (ADDERALL) 10 mg tablet dextroamphetamine-amphetamine (ADDERALL XR) 30 MG 24 hr capsule (Start on 02/08/2020) dextroamphetamine-amphetamine (ADDERALL XR) 30 MG 24 hr capsule Other Visit Diagnoses Well adult exam - Primary Relevant Orders CBC and Differential Comprehensive Metabolic Panel Screening for lipid disorders Relevant Orders Lipid Panel For any new medications prescribed today, patient was educated about indications for the medication, how to take the medication and potential side effects of the medications. Please note: Portions of this chart may have been created with [employer] voice recognition software. Occasional wrong-word or sound-like substitutions may have occurred due to inherent limitations of the voice recognition software. Please read the chart carefully and recognize, using context, where the substitutions have occurred. documented in this encounter* Beth Cabral CNP - 04/28/2020 10:07 AM EST Unable to come to appointment due to partner being tested for covid. He does work in the correctional [employer]. I will refill 30-day supply until she can be seen at her next appointment but will notrefill any more due to need of CSA and drug screen to be completed. documented in this encounter* Beth Cabral CNP - 06/01/2020 11:53 AM EST OFFICE VISIT PROGRESS NOTE HPI Patient is a pleasant 39 y.o. female with a past medical history depression, anxiety, ADHD, hidradenitis suppurativa presenting to the office for medication refill for her ADHD. ADD- Onset: Chronic, worsening Symptoms: Inattentiveness, impulsiveness, easily bored, disorganized, restless, short attention span with anxiety and depression. 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 She has used Adderall XR in the past which worked better for her but due to insurance cannot afford this at this time. Pain: Denies pain Treatment: Adderall 30 mg BID with 10 mg as needed during Effectiveness: Significant improvement of symptoms Adherence: Takes 7 days/week Adverse effects: Tolerates well, denies side effects Lab: October 2018 Diet/exercise: No formal diet or exercise ADD goal: Participate in activities with children, complete work task on time with minimal distraction. Patient states she feels her ADD treatment goals are not currently being met due to new job obligations Depression Chronic, worsening. 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 She has felt increased worry and stress of bringing home her significant other Covid due to his comorbidities. She did speak with her mother who is currently treated with Wellbutrin and Abilify which works well for her. We will trial Abilify to see if this improves her mood and decreases depression. The following portions of the patient's history were reviewed and updated as appropriate: allergies, current medications and problem list. Family History Problem Relation Age of Onset Diabetes Father Hypertension Father Clotting disorder Sister Lung cancer Maternal Grandfather Bone cancer Paternal Grandfather Arthritis Mother Hypertension Mother Mental illness Mother Depression Mother Asthma Brother Hypertension Paternal Grandmother Hyperlipidemia Paternal Grandmother Heart disease Paternal Grandmother Hypertension Brother Social History Socioeconomic History Marital status: Spouse name: Not on file Number of children: 3 Years of education: Not on file Highest education level: Not on file Occupational History Not on file Social Needs Financial resource strain: Not hard at all Food insecurity Worry: Never true Inability: Never true Transportation needs Medical: No Non-medical: No Tobacco Use Smoking status: Current Every Day Smoker Packs/day: 0.50 Years: 19.00 Pack years: 9.50 Types: Cigarettes Start date: 04/18/1999 Smokeless tobacco: Never Used Substance and Sexual Activity Alcohol use: Yes Frequency: Monthly or less Binge frequency: Less than monthly Drug use: Never Sexual activity: Yes Partners: Male control/protection: Surgical Lifestyle Physical activity Days per week: 0 days Minutes per session: 0 min Stress: Rather much Relationships Social connections Talks on phone: Three times a week Gets together: Three times a week Attends sabianist service: Never Active member of club or organization: No Attends meetings of clubs or organizations: Never Relationship status: Other Topics Concern Not on file Social History Narrative Not on file Past Surgical History: Procedure Laterality Date HYSTERECTOMY 2007 Allergies Allergen Reactions Augmentin [Amoxicillin-Pot Clavulanate] Hives Clavulanic Acid Penicillins Patient's Medications New Prescriptions ARIPIPRAZOLE (ABILIFY) 10 MG TABLET Take 1 (one) tablet (10 mg total) by mouth daily . Previous Medications BUPROPION (WELLBUTRIN XL) 300 MG 24 HR TABLET Take 1 (one) tablet (300 mg total) by mouth daily Start after 7 days of Wellbutrin 150 mg . CLONIDINE HCL (CATAPRES) 0.1 MG TABLET Take 1 (one) tablet (0.1 mg total) by mouth nightly as needed . Modified Medications Modified Medication Previous Medication DEXTROAMPHETAMINE-AMPHETAMINE (ADDERALL) 10 MG TABLET dextroamphetamine- amphetamine (ADDERALL) 10 mg tablet Take 1 (one) tablet (10 mg total) by mouth daily as needed . Take 1 (one) tablet (10 mg total) by mouth daily as needed . DEXTROAMPHETAMINE-AMPHETAMINE (ADDERALL) 30 MG TABLET dextroamphetamine- amphetamine (ADDERALL) 30 mg tablet Take 1 (one) tablet (30 mg total) by mouth 2 (two) times a day Start: 07/31/20. Take 1 (one) tablet(30 mg total) by mouth 2 (two) times a day . DEXTROAMPHETAMINE-AMPHETAMINE (ADDERALL) 30 MG TABLET dextroamphetamine- amphetamine (ADDERALL) 30 mg tablet Take 1 (one) tablet (30 mg total) by mouth 2 (two) times a day Start: 07/01/20. Take 1 (one) tablet(30 mg total) by mouth daily Start: 03/11/20. DEXTROAMPHETAMINE-AMPHETAMINE (ADDERALL) 30 MG TABLET dextroamphetamine- amphetamine (ADDERALL) 30 mg tablet Take 1 (one) tablet (30 mg total) by mouth 2 (two) times a day . Take 1 (one) tablet (30 mg total) by mouth 2 (two) times a day Start: 02/15/20. Discontinued Medications BUPROPION (WELLBUTRIN XL) 150 MG 24 HR TABLET Take 1 (one) tablet (150 mg total) by mouth daily Take for 7 days then increase dose to 300 mg daily for 7 days . Review of Systems Review of Systems Constitutional: Negative for activity change. HENT: Negative. Respiratory: Negative. Negative for chest tightness. Cardiovascular: Negative for chest pain. Gastrointestinal: Negative. Negative for abdominal pain. Genitourinary: Negative. Musculoskeletal: Negative. Skin: Negative. Allergic/Immunologic: Negative. Neurological: Negative for dizziness, speech difficulty, weakness, light- headedness and headaches. Hematological: Negative for adenopathy. Does not bruise/bleed easily. Psychiatric/Behavioral: Positive for dysphoric mood. Negative for self-injury, sleep disturbance and suicidal ideas. Vitals: 06/01/20 1154 BP: 127/84 BP Location: Right arm Patient Position: Sitting BP Cuff Size: X-large Adult Pulse: 98 Resp: 18 Temp: 97.6 F (36.4 C) TempSrc: Temporal SpO2: 98% Weight: 95.7 kg (210 lb 14.4 oz) Height: 5' 3 Body mass index is 37.36 kg/m . Physical Exam Physical Exam Vitals signs and nursing note reviewed. Constitutional: Appearance: She is well-developed. HENT: Head: Normocephalic. Neck: Musculoskeletal: Normal range of motion. Cardiovascular: Rate and Rhythm: Normal rate and regular rhythm. Heart sounds: Normal heart sounds. Pulmonary: Effort: Pulmonary effort is normal. Breath sounds: Normal breath sounds. Abdominal: General: Bowel sounds are normal. Palpations: Abdomen is soft. Musculoskeletal: Normal range of motion. Skin: General: Skin is warm and dry. Neurological: Mental Status: She is alert and oriented to person, place, and time. Psychiatric: Attention and Perception: She is inattentive. Mood and Affect: Mood is anxious and depressed. Behavior: Behavior is hyperactive. Thought Content: Thought content normal. Judgment: Judgment normal. OARRS/NARxCHECK Report Received and Assessed: 06/01/2020 Date controlled substance agreement signed: 06/01/2020 Date of last drug screen: 06/01/2020 Functional Assessment: No data found Assessment/Plan Problem List Items Addressed This Visit Other ADHD I have ordered a 90 day supply of your adderall. This is a controlled substance which is regulated by the Federal government. New laws require you to be seen in the office every 90 days to continue this medication. You will also be required to do yearly urine drug test. Continue current medications, Controlled Substance Agreement is on file and an OARRS report was checked today, you were given a 3 months supply, follow-up in the office as scheduled. Relevant Medications dextroamphetamine-amphetamine (ADDERALL) 10 mg tablet dextroamphetamine-amphetamine (ADDERALL) 30 mg tablet (Start on 07/31/2020) dextroamphetamine-amphetamine (ADDERALL) 30 mg tablet (Start on 07/01/2020) dextroamphetamine-amphetamine (ADDERALL) 30 mg tablet ARIPiprazole (ABILIFY) 10 MG tablet Depression - Primary Continue the Wellbutrin, start taking Abilify once daily to help with your mood swings. Relevant Medications dextroamphetamine-amphetamine (ADDERALL) 10 mg tablet dextroamphetamine-amphetamine (ADDERALL) 30 mg tablet (Start on 07/31/2020) dextroamphetamine-amphetamine (ADDERALL) 30 mg tablet (Start on 07/01/2020) dextroamphetamine-amphetamine (ADDERALL) 30 mg tablet ARIPiprazole (ABILIFY) 10 MG tablet Mood disorder (HCC) Relevant Medications dextroamphetamine-amphetamine (ADDERALL) 10 mg tablet dextroamphetamine-amphetamine (ADDERALL) 30 mg tablet (Start on 07/31/2020) dextroamphetamine-amphetamine (ADDERALL) 30 mg tablet (Start on 07/01/2020) dextroamphetamine-amphetamine (ADDERALL) 30 mg tablet ARIPiprazole (ABILIFY) 10 MG tablet For any new medications prescribed today, patient was educated about indications for the medication, how to take the medication and potential side effects of the medications. Please note: Portions of this chart may have been created with [employer] voice recognition software. Occasional wrong-word or sound-like substitutions may have occurred due to inherent limitations of the voice recognition software. Please read the chart carefully and recognize, using context, where the substitutions have occurred. documented in this encounter Assessments Diagnosis Encounter for well adult exam without abnormal findings- Primary Attention deficit hyperactivity disorder (ADHD), unspecified ADHD type Diagnosis Attention deficit hyperactivity disorder (ADHD), unspecified ADHD type- Primary Encounter for well adult exam without abnormal findings Screening for lipid disorders Screening for thyroid disorder Depression, unspecified depression type Diagnosis Attention deficit hyperactivity disorder (ADHD), unspecified ADHD type Diagnosis Attention deficit hyperactivity disorder (ADHD), unspecified ADHD type Diagnosis Attention deficit hyperactivity disorder (ADHD), unspecified ADHD type Well adult exam Routine general medical examination at a health care facility Screening for lipid disorders Diagnosis Depression, unspecified depression type- Primary Attention deficit hyperactivity disorder (ADHD), unspecified ADHD type Mood disorder (HCC) Unspecified episodic mood disorder Diagnosis Depression, unspecified depression type Reason for Referral Specialty Diagnoses / Procedures Referred By Contac t Referred To Contact Diagnoses Screening mammogram for breast cancer Procedures Mammography Screening Ortiz Rachael Palmer CNP [address] [place] [id number] Referral ID Status Reason Start Date Expiration Date V isits Requested Visits Authorized [id number] Authorized 02/10/2022 02/10/2023 1 1 Additional Source Comments INFORMATION SOURCE (unrecogn ized section and content) DATE CREATED AUTHOR AUTHOR'S ORGANIZ ATION 11/20/2018 [facility] DATE CREATED AUTHOR AUTHOR'S ORGANIZ ATION 10/28/2021 [facility] DATE CREATED AUTHOR AUTHOR'S ORGANIZ ATION 06/04/2023 [facility] Reason for Visit (unrecogniz ed section and content) Reason Comments ADHD Would like lab order . Needs refills on meds. Would like to discuss med increase. Reason Comments Follow-up 3 month f/u for adhd Reason Comments ADHD Reason Comments Medication Refill Reason Onset Date Comments Medication Refill 07/16/2020 Reason Comments Annual Exam Reason Onset Date Comments Medication Refill 06/28/2022 Assessment & Plan Note - Beth Castillo CNP - 08/09/2018 8:31 AM ESTAssessment & Plan Note - Beth Cabral CNP - 02/21/2019 12:50 PM EDT Miscellaneous Notes (unrecog nized section and content) Associated Problem(s): ADHD Chronic, stable. Continue current medications, Controlled Substance Agreement is on file and an OARRS report was checked today, you were given a 3 months supply, follow-up in the office as scheduled. in this encounter Associated Problem(s): ADHD I have ordered a 90 day supply of your adderall. This is a controlled substance which is regulated by the Federal government. New laws require you to be seen in the office every 90 days to continue this medication. You will also be required to do yearly urine drug test. Continue current medications, Controlled Substance Agreement is on file and an OARRS report was checked today, you were given a 3 months supply, follow-up in the office as scheduled. documented in this encounter Associated Problem(s): ADHD I have added an additional 10 mg dose to be used as needed on days that you work to maintain focus throughout your 12-hour shift. I have ordered a 90 day supply of your adderall. This is a controlled substance which is regulated by the Federal government. New laws require you to be seen in the office every 90 days to continue this medication. You will also be required to do yearly urine drug test. Continue current medications, Controlled Substance Agreement is on file and an OARRS report was checked today, you were given a 3 months supply, follow-up in the office as scheduled. documented in this encounter Associated Problem(s): ADHD I have ordered blood work for you to have completed. Please have this completed at your earliest convenience. This blood work will need to be completed while fasting. This means nothing to eat or drink for 8 hours prior to having it drawn. You can however, drink water and take medications as ordered during this time. I will review your labs via [employer] or the office will with your results. I have ordered a 90 day supply of your adderall. This is a controlled substance which is regulated by the Federal government. New laws require you to be seen in the office every 90 days to continue this medication. You will also be required to do yearly urine drug test. Continue current medications, Controlled Substance Agreement is on file and an OARRS report was checked today, you were given a 3 months supply, follow-up in the office as scheduled. documented in this encounter Associated Problem(s): Depression Continue the Wellbutrin, start taking Abilify once daily to help with your mood swings. Associated Problem(s): ADHD I have ordered a 90 day supply of your adderall. This is a controlled substance which is regulated by the Federal government. New laws require you to be seen in the office every 90 days to continue this medication. You will also be required to do yearly urine drug test. Continue current medications, Controlled Substance Agreement is on file and an OARRS report was checked today, you were given a 3 months supply, follow-up in the office as scheduled. documented in this encounter <item><item> Privacy Markings (unrecogniz ed section and content) Section Author: Jazmine Chen PROHIBITION ON REDISCLOSURE OF CONFIDENTIAL INFORMATION This notice accompanies a disclosure of information concerning a client made to you with the consent of such client. Section Author: Jazmine Chen PROHIBITION ON REDISCLOSURE OF CONFIDENTIAL INFORMATION This notice accompanies a disclosure of information concerning a client made to you with the consent of such client. Care Teams (unrecognized sec tion and content) Photoengraving Apprentice Relationship Specialty Start Date End Date Rachael Linda, F[employer] ISLAND ATTENDANT [address] [place] [id number] PCP - General Nurse Practitioner 08/11/20 Rachael Linda, FUEL ISLAND ATTENDANT [address] [place] [id number] PCP - BALDEV Attributed Provider - MMO Commercial 07/19/19 06/17/50 Photoengraving Apprentice Relationship Specialty Start Date End Date Rachael Linda, FUEL ISLAND ATTENDANT [address] [place] [id number] PCP - General Nurse Practitioner 08/11/20 Rachael Linda, FUEL ISLAND ATTENDANT [address] [place] [id number] PCP - BALDEV Attributed Provider - MMO Commercial 07/19/19 06/17/50 Photoengraving Apprentice Relationship Specialty Start Date End Date Rachael Linda, FUEL ISLAND ATTENDANT [address] [place] [address], [place] [address] PCP - General Nurse Practitioner 08/11/20 Rachael Linda, MARYA [address] [place] [address], [place] [id number] PCP - BALDEV Attributed Provider - MMO Commercial 07/19/19 06/17/50 Photoengraving Apprentice Relationship Specialty Start Date End Date Rachael Linda, MARYA [address] [place] [address], [place] [id number] PCP - General Nurse Practitioner 08/11/20 Rachael Linda CNP [address] [place] [address], [place] [address] PCP - BALDEV Attributed Provider - MMO Commercial 07/19/19 06/17/50 Photoengraving Apprentice Relationship Specialty Start Date End Date Rachael Linda, MARYA [address] [place] [address], [place] [address] PCP - General Nurse Practitioner 08/11/20 Rachael Linda CNP [address] [place] [address], [place] [address] PCP - BALDEV Attributed Provider - MMO Commercial 07/19/19 06/17/50 Photoengraving Apprentice Relationship Specialty Start Date End Date Rachael Linda CNP [address] [place] [address], [place] [address] PCP - General Nurse Practitioner 08/11/20 Rachael Linda CNP [address] [place] [address], [place] [address] PCP - BALDEV Attributed Provider - MMO Commercial 07/19/19 06/17/50 Photoengraving Apprentice Relationship Specialty Start Date End Date Rachael Linda CNP [address] [facility] [place] [address] PCP - General Nurse Practitioner 08/11/20 Photoengraving Apprentice Relationship Specialty Start Date End Date Linda Rachael Darby CNP [address] [place] [id number] PCP - General Nurse Practitioner 08/11/20 FOR RECORDS PERTAINING TO PATIENTS WHO ARE OR HAVE BEEN ENROLLED IN A CHEMICAL DEPENDENCY/SUBSTANCEABUSE PROGRAM, SOME INFORMATION MAY BE OMITTED. This clinical summary was aggregated from multiple sources. Caution should be exercised in using it in the provision of clinical care. This summary normalizes information from multiple sources, and as a consequence, information in this document may materially change the coding, format and clinical context of patient data. In addition, data may be omitted in some cases. CLINICAL DECISIONS SHOULD BE BASED ON THE PRIMARY CLINICAL RECORDS. [facility] [employer] provides no warranty or guarantee of the accuracy or completeness of information in this document.
[2023-06-28 07:03] LABS: Absolute Lymphocyte Count 2.66 X10^3/uL (0.83-4.51); Absolute Neutrophil Count 7.4 X10^3/uL (2.0-7.7); Basophil# 0.07 X10^3/uL; Basophil% 0.6 % (0-1); Eosinophil# 0.14 X10^3/uL; Eosinophils% 1.3 % (0-5); Hemoglobin 15.5 g/dL (12.0-15.0); Lymphocyte # 2.66 X10^3/ul (0.83-4.51); Lymphocyte % 24.5 % (19-41); Mean Corp Hgb Conc 32.3 g/dL (32-36); Mean Corpuscular Hgb 26.6 pg (27.0-32.0); Mean Corpuscular Volume 82.3 fL (81-99); Mean Platelet Vol. 10.1 fl (6.2-12.0); Monocyte# 0.54 X10^3/uL; NRBC Flagged by Analyzer 0 % (0-5); Platelet Count 373 K/mm3 (150-450); RBC Distribution Width CV 15.9 % (11.6-14.6); RBC Distribution Width SD 46.8 fl (35.1-43.9); Red Blood Count 5.83 M/mm3 (4.2-5.4); White Blood Count 10.9 K/mm3 (4.4-11.0)
[2023-06-28 07:45] LABS: ALB/GLOB Ratio 0.9 RATIO (0.9-2.4); AST(SGOT) 11 U/L (15-37); Alanine Aminotransfer ALT/SGPT 20 U/L (13-56); Albumin, Serum 3.7 g/dL (3.2-5.0); Alkaline Phosphatase 80 U/L (45-117); Anion Gap 6 (5-15); BUN 9 mg/dL (7-18); Calcium,Total 9.3 mg/dL (8.5-10.1); Chloride 109 mmol/L (98-107); Cholesterol 156 mg/dL (200); Creatinine, Serum 0.75 mg/dL (0.55-1.02); EST Glomerular Filtration Rate 90 mL/min (>60); Est Glom Filt Rate - Afr Amer 109 mL/min (>60); Ferritin 193 ng/mL (8-252); Globulin 3.9 g/dL (2.2-4.2); Glucose 110 mg/dL (74-106); High Density Lipoprotein 47 mg/dL; Iron 39 ug/dL (50-170); Iron Binding Capacity,Total 348 ug/dL (250-450); PERCENT IRON SATURATION 11.2 % (15.0-55.0); Protein, Total 7.6 g/dL (6.4-8.2); Sodium Level 137 mmol/L (136-145); Thyroid Stim Hormone (TSH) 1.28 uIU/mL (0.358-3.74); Triglycerides 72 mg/dL; Very Low Density Lipoprotein 14 mg/dL (5-40)
[2023-06-28 09:38] LABS: Hemoglobin A1c 5.5 % (3.8-5.6)
[2023-06-28 10:58] LABS: Vitamin B12 382 pg/mL (211-911); Vitamin D,25 Hydroxy 61.3 ng/mL
== END | disposition home or self-care (01) ==
LOC: LAB 06:17
DX: Z00.00 Encounter for general adult medical examination without abnormal findings (principal); R73.01 Impaired fasting glucose; E61.1 Iron deficiency; E55.9 Vitamin D deficiency, unspecified; Z13.29 Encounter for screening for other suspected endocrine disorder; Z13.220 Encounter for screening for lipoid disorders; Z13.6 Encounter for screening for cardiovascular disorders
CPT/HCPCS: 36415; 80053; 80061; 82306; 82607; 82728; 82746; 83036; 83540; 83550; 84439; 84443; 85025

== ENCOUNTER → 2024-03-21 | Outpatient (CLI) | payer OTHER, SELFPAY ==
--- NOTE | 2024-03-21 07:11 | BI_ITS ---
MAMMOGRAPHY - BILATERAL SCREENING REASON FOR EXAM: Female, 43 years old. Routine annual screening examination. PERTINENT HISTORY: Grandmother with breast cancer. TECHNIQUE: Digital bilateral breast mayank (3D mammographic acquisition) in the CC and MLO projections. 2-D mediolateral oblique (MLO) and craniocaudad (CC) views of both breasts were obtained. CAD: Full Field Digital Mammography with Computer Added Detection was performed. COMPARISON: Comparison is made with prior study January 23, 2023. FINDINGS: Breast Composition: The breasts are extremely dense, which lowers the sensitivity of mammography. There are no dominant masses or suspicious calcifications. Stable 6.1 mm well-defined nodule in the upper lateral anterior aspect of the left breast. Prior sonogram demonstrated to be a small cyst. No other significant abnormalities are identified. There has been no significant change since the prior study. BI/SCRN MAMM (CAD)[id number]/MAAYNK BILAT IMPRESSION: Stable bilateral screening mammogram. Yearly follow-up mammogram recommended. (A) ASSESSMENT CATEGORY: BIRADS Category 2: Benign. A letter regarding these results will be sent to the patient by the facility within 30 days. Approximately 10% of breast cancers are not detected by mammography. A normal mammogram should not delay biopsy of a clinically suspicious abnormality. [id number] Electronically Signed: Sherwin Johnson MD at 8:38 EDT ,
== END | disposition home or self-care (01) ==
PROVIDERS: PCP Nurse Practitioner Family; Referring Provider Nurse Practitioner Family; Visit Provider Nurse Practitioner Family
DX: Z12.31 Encounter for screening mammogram for malignant neoplasm of breast (principal)
CPT/HCPCS: 77063; 77067

== ENCOUNTER → 2024-07-22 | Outpatient (CLI) | payer OTHER, SELFPAY ==
[2024-07-22 06:35] LABS: Absolute Lymphocyte Count 2.29 X10^3/uL (0.83-4.51); Basophil# 0.08 X10^3/uL; Basophil% 0.9 % (0-1); Eosinophil# 0.11 X10^3/uL; Eosinophils% 1.2 % (0-5); Hematocrit 43.4 % (37-47); Lymphocyte # 2.29 X10^3/ul (0.83-4.51); Lymphocyte % 25.7 % (19-41); Mean Corp Hgb Conc 32.3 g/dL (32-36); Mean Corpuscular Hgb 25.7 pg (27.0-32.0); Mean Corpuscular Volume 79.6 fL (81-99); Mean Platelet Vol. 9.4 fl (6.2-12.0); Monocyte# 0.39 X10^3/uL; Monocyte% 4.4 % (0-10); NRBC Flagged by Analyzer 0 % (0-5); Neutrophil # 5.98 X10^3/uL (2.7-7.7); Neutrophil % 67.2 % (47-70); Platelet Count 398 K/mm3 (150-450); RBC Distribution Width CV 15.3 % (11.6-14.6); RBC Distribution Width SD 43.7 fl (35.1-43.9); Red Blood Count 5.45 M/mm3 (4.2-5.4); White Blood Count 8.9 K/mm3 (4.4-11.0)
[2024-07-22 07:19] LABS: ALB/GLOB Ratio 0.8 RATIO (0.9-2.4); AST(SGOT) 12 U/L (15-37); Alanine Aminotransfer ALT/SGPT 20 U/L (13-56); Albumin, Serum 3.5 g/dL (3.2-5.0); Alkaline Phosphatase 82 U/L (45-117); Anion Gap 4 (5-15); BUN 10 mg/dL (7-18); BUN/Creat Ratio 13.6 RATIO (10-20); Calcium,Total 9.6 mg/dL (8.5-10.1); Chloride 106 mmol/L (98-107); Cholesterol 167 mg/dL (200); Creatinine, Serum 0.73 mg/dL (0.55-1.02); EST Glomerular Filtration Rate 92 mL/min (>60); Est Glom Filt Rate - Afr Amer 111 mL/min (>60); Ferritin 198 ng/mL (8-252); Globulin 4.2 g/dL (2.2-4.2); Glucose 96 mg/dL (74-106); High Density Lipoprotein 56 mg/dL; Iron 45 ug/dL (50-170); Iron Binding Capacity,Total 238 ug/dL (250-450); PERCENT IRON SATURATION 18.9 % (15.0-55.0); Potassium 4.4 mmol/L (3.5-5.1); Protein, Total 7.7 g/dL (6.4-8.2); Sodium Level 137 mmol/L (136-145); T4 Free Direct 1.03 ng/dL (0.76-1.46); Triglycerides 82 mg/dL; Very Low Density Lipoprotein 16 mg/dL (5-40)
[2024-07-22 08:07] LABS: Hemoglobin A1c 5.5 % (3.8-5.6)
[2024-07-22 10:01] LABS: Vitamin B12 893 pg/mL (211-911); Vitamin D,25 Hydroxy 31.7 ng/mL
== END | disposition home or self-care (01) ==
LOC: LAB 06:08
PROVIDERS: PCP Nurse Practitioner Family; Referring Provider Nurse Practitioner Family; Visit Provider Nurse Practitioner Family
DX: E78.5 Hyperlipidemia, unspecified (principal); E55.9 Vitamin D deficiency, unspecified; E61.1 Iron deficiency; R73.01 Impaired fasting glucose; Z13.29 Encounter for screening for other suspected endocrine disorder
CPT/HCPCS: 36415; 80053; 80061; 82306; 82607; 82728; 82746; 83036; 83540; 83550; 84439; 84443; 85025

== ENCOUNTER → 2024-07-30 | Outpatient (CLI) | payer OTHER, SELFPAY ==
--- NOTE | 2024-07-30 09:39 | RAD_ITS ---
PROCEDURE: S-I JTS 3 OR MORE VIEWS REASON FOR EXAM: Chronic sacroiliac joint pain. TECHNIQUE: Three-view sacroiliac joint series) COMPARISON: None available. RAD/S-I Jts 3 or More Views IMPRESSION: Degenerative changes are seen of the visualized lower lumbar spine. Bilateral Essure devices are seen over the pelvis. Minimal right sacroiliac joint degenerative changes are noted. No erosive process or joint narrowing is seen. No sclerotic reaction is noted. No fracture or dislocation is evident. Reading Location: [id number]
== END | disposition home or self-care (01) ==
LOC: RAD 09:37
PROVIDERS: PCP Nurse Practitioner Family; Referring Provider Nurse Practitioner Family; Visit Provider Nurse Practitioner Family
DX: M53.3 Sacrococcygeal disorders, not elsewhere classified (principal); G89.29 Other chronic pain
CPT/HCPCS: 72202

== ENCOUNTER 2024-12-08 07:11 | Emergency (ER) | payer OTHER, SELFPAY ==
[2024-12-08 07:11] VITALS: BP 141/83; PULSE 81; RESP 16; TEMP 36.4; O2SAT 97; BMI 43.4
--- NOTE | 2024-12-08 07:43 | EKG12_ITS ---
Test Reason : DIZZINESS Blood Pressure : */* mmHG Vent. Rate : 74 BPM Atrial Rate : 74 BPM P-R Int : 116 ms QRS Dur : 90 ms QT Int : 392 ms P-R-T Axes : 53 71 47 degrees QTcB Int : 435 ms Normal sinus rhythm Normal ECG Confirmed by ROSALIE SANCHES, DEVI ([id number]), publishing editor BHASKAR RASHDI ([id number]) on 12/09/2024 11:04:54 AM Referred By: Confirmed By: DEVI WIGGINS MD
[2024-12-08 07:53] VITALS: BP 117/76; BP 126/85; BP 134/76; PULSE 74; PULSE 78; PULSE 81
--- NOTE | 2024-12-08 07:57 | EDS_ITS ---
HPI History of Present Illness Chief Complaint: Dizziness Narrative Narrative: Patient is a 44-year-old female with past medical history of anemia, vitamin D deficiency, hidradenitis suppurativa, headaches who presents to the emergency department with a chief complaint of lightheadedness and not feeling well. States that she got to work this morning and that while standing discussing with staff she states that she became very lightheaded and felt like she may pass out she states that she has not had anything happen like this before. In the triage note states that she had dizzy when inquiring about this she states that she was not dizzy things were not spinning around she was not spinning around she felt very lightheaded and felt like she was developing tunnel vision. Patient states that she did get nauseous and vomited. Patient states that she drink plenty of fluids through the weekend which she states is unusual for her. Denies any sick contacts. Denies any recent travels denies any history of blood clots. Patient states that she does have a mild headache but notes that this is not unusual for her. [facility] Medical History Encounter for Essure implantation Hidradenitis suppurativa Vitamin D deficiency Anemia URI (upper respiratory infection) Home Medications ?Medication ?Instructions ?Recorded ?Last Taken ?Type lamotrigine 100 mg tablet 100 mg PO QDAY 09/16/24 Unkn own History lisdexamfetamine 40 mg capsule 40 mg PO QDAY 09/16/24 Unknown History (Vyvanse) pantoprazole 40 mg tablet,delayed 40 mg PO QDAY Unknown History release rimegepant 75 mg disintegrating 75 mg PO ONCE PRN 07/12 Unknown History tablet (Nurtec ODT) sertraline 100 mg tablet (Zoloft) 100 mg PO QDAY 09/16 Unknown History topiramate 25 mg sprinkle capsule PO 09/16/24 Unknown History Allergy/AdvReac Type Severity Reaction Status Date / Time amoxicillin (From Augmentin) Allergy Shortness Verified 12/08/24 07:13 of breath clavulanic acid (From Allergy Shortness Verified 12/08/24 07:13 Augmentin) of breath Family History Mother Anemia Anxiety Rheumatoid arthritis Depression Hypertension Hormone imbalance Mental disorder Osteoporosis Brother Asthma Grandmother Arthritis Sister Factor 5 Leiden mutation, heterozygous Depression Aunt Cervical cancer Father Diabetes Hypertension Grandmother Parkinson disease Surgical History H/O: hysterectomy Social History adopted: No number of children: 3 current occupational status: employed 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 sexually active: Yes Smoking Status: Light Smoker (<10/day) alcohol intake: current alcohol intake frequency: holidays/special occasions only substance use type: does not use what type of physical activity do you participate in: walking seatbelt use: always do you feel safe at home: Yes additional social history: [place]- Boyfriend ROS ROS ED ROS Narrative Constitutional: Complains of lightheadedness as noted above and headache denies fever, chills, dizziness Eyes: Denies change in vision double vision blurry vision Cardiovascular: Denies chest pain Respiratory: Denies coughing wheezing shortness of breath Abdomen: Complains of nausea vomiting as noted above denies abdominal pain : Denies urinary symptoms Neurological: Denies numbness, weakness, tingling Musculoskeletal: Denies back pain Skin: Denies any rashes or lesions EXAM Physical Exam Narrative Exam Narrative: General: Patient was lying in bed rest comfortably did not appear to be acute distress Head: Atraumatic, normocephalic Eyes: PERRL bilaterally, EOMI bilateral, no conjunctival injection noted Neck: Soft, supple, trachea midline Cardiovascular: Regular rate and rhythm no murmurs gallops rubs noted Respiratory: Clear to auscultation bilaterally no rales rhonchi or wheezes noted Abdomen: Soft, nondistended, nontender to palpation Extremities: +5/5 strength noted in the bilateral upper and lower extremities, radial pulses +2/4 in the bilateral extremities, no pedal edema on exam Neurological: Patient follow commands knew that she was at [facility] the year is 2024. NIH is 0 GCS 15 patient completed finger-nose testing bilaterally without any difficulty Skin: Warm, dry, intact no rashes or lesions noted Const Vital Signs: 12/08/24 07:11 12/08/24 07:53 12/08/24 09:11 Temperature 97.6 F L Temperature Source Temporal Pulse Rate 81 Pulse Rate [Lying] 74 Pulse Rate [Sitting (for 1 minute prior to obtaining)] 81 Pulse Rate [Standing (for 1 minute prior to obtaining)] 78 Respiratory Rate 16 Blood Pressure 141/83 H 124/76 H Blood Pressure [Lying] 117/76 Blood Pressure [Sitting (for 1 minute prior to obtaining)] 134/76 H Blood Pressure [Standing (for 1 minute prior to obtaining)] 126/85 H Blood Pressure Mean 102 92 Blood Pressure Mean [Lying] 89 Blood Pressure Mean [Sitting (for 1 minute prior to obtaining)] 95 Blood Pressure Mean [Standing (for 1 minute prior to obtaining)] 98 Pulse Ox 97 Oxygen Delivery Method Room Air MDM MDM MDM Narrative Medical decision making narrative: Patient is a 44-year-old female who presented to the emergency department the chief complaint of lightheadedness, nausea and vomiting. On the differential diagnosis includes but not limited to ACS, viral gastroenteritis, PE although feel this less likely based on revised Caswell score, pancreatitis, orthostatic hypotension, vasovagal syncope/near syncope. Once workup is obtained reviewed she will be reevaluated. Orthostatic vital signs will be checked. Patient be given IV fluids for hydration. Patient be given Reglan. Caswell Score (Revised) for Pulmonary Embolism from [employer]read on 12/08/2024 All calculations should be rechecked by clinician prior to use RESULT SUMMARY: 3 points Low risk group: 7-9% incidence of PE from several studies. INPUTS: Age >65 ?> 0 = No Previous DVT or PE ?> 0 = No Surgery (under general anesthesia) or lower limb fracture in past month ?> 0 = No Active malignant condition ?> 0 = No Unilateral lower limb pain ?> 0 = No Hemoptysis ?> 0 = No Heart rate ?> 3 = 75-94 Pain on lower limb palpation and unilateral edema ?> 0 = No Patient's CBC reviewed and showed no evidence leukocytosis white blood count normal at 9.8, hemoglobin 14.4, platelet count of 367. Patient sodium was 135, potassium 4.5, creatinine normal at 0.68. Patient's AST and ALT were 19 and 13 respectively, troponin was less than 6 with a delta troponin less than 6. Patient's EKG showed sinus rhythm with a rate of 74 bpm. Patient lipase normal at 15, TSH normal at 0.67 and a free T4 and T3 normal at 1.10 and 3.3 respectively. Patient's test was negative. Patient's chest x-ray reviewed by myself by radiology showed no acute cardiopulmonary processes. Patient ambulated several times to the bathroom without any difficulty orthostatic vital signs negative. Patient was ambulated with pulse ox and had no tachycardia no hypoxia. On reevaluation the patient she is feeling much improved and would like to go home at this point time. She is advised to hydrate with plenty of fluids including water. She is encouraged return with worsening symptoms or concerns otherwise she is to follow-up with her doctor in outpatient setting. She is agreeable to plan all question concerns answered she was discharged home in stable condition. Lab Data Labs: Laboratory Results - last 24 hr 12/08/24 12/08/24 08:07 10:00 WBC 9.8 RBC 5.56 H Hgb 14.4 Hct 44.9 MCV 80.8 L MCH 25.9 L MCHC 32.1 RDW Std Deviation 42.7 RDW Coeff of Jo 14.6 Plt Count 367 MPV 9.5 Immature Gran % (Auto) 0.500 Neut % (Auto) 76.0 H Lymph % (Auto) 17.8 L [place] % (Auto) 4.0 Eos % (Auto) 1.1 Baso % (Auto) 0.6 Absolute Neuts (auto) 7.4 Absolute Lymphs (auto) 1.74 Nucleated RBC % 0 Sodium 135 Potassium 4.5 Chloride 101 Carbon Dioxide 22.8 Anion Gap 11 BUN 9 Creatinine 0.68 L Estim Creat Clear Calc 127.80 Est GFR (MDRD) Non-Af 111 BUN/Creatinine Ratio 12.6 Glucose 118 H Calcium 9.1 Total Bilirubin 0.37 AST 19 ALT 13 Alkaline Phosphatase 81 Troponin T High Sens < 6 Troponin T Hi Sens 2 Hr < 6 Total Protein 7.4 Albumin 4.0 Globulin 3.4 Albumin/Globulin Ratio 1.2 Lipase 15 TSH 0.674 Free T4 1.10 Free T3 pg/dL 3.3 Serum , Qual NEGATIVE Radiography Diagnostic Testing: Clinical Impression(s) from Imaging Studies Chest X-Ray 12/08/24 08:25 IMPRESSION: No evidence of pneumoperitoneum. Chronic lung changes are seen, but no acute pneumonic process is clearly appreciated. No pleural effusion or pneumothorax is seen. The cardiomediastinal silhouette is within the normal range, and unchanged. No acute osseous process is seen. Reading Location: [place] [id number] Discharge Plan Triage Chief Complaint: Dizziness ED Provider: Deonte Beckett Dx/Rx/DC Orders Clinical Impression: Near syncope Prescriptions: No Action lisdexamfetamine [Vyvanse] 40 mg capsule 40 mg PO QDAY Nurtec ODT 75 mg tablet,disintegrating 75 mg PO ONCE PRN Rx Instructions: as a single dose sertraline [Zoloft] 100 mg tablet 100 mg PO QDAY lamotrigine 100 mg tablet 100 mg PO QDAY pantoprazole 40 mg tablet,delayed release (DR/EC) 40 mg PO QDAY topiramate 25 mg capsule, sprinkle PO Primary Care Provider: Mela Linda Referrals: Mela Linda NP-C [Primary Care Provider] - Activity Restrictions/Additional Instructions: Follow-up with your doctor in the outpatient setting. Return with worsening symptoms or concerns. Your cardiac workup did not show any acute findings your EKG was normal your chest x-ray did not show any acute findings either. Return with worsening symptoms or any other concerns. Print Language: Belarusian Disposition Disposition: Home, Self Care
[2024-12-08] MEDS: Metoclopramide 10 MG/2 ML Vial IV (08:00)
[2024-12-08] MEDS: 0.9% Normal Saline (1000mL) 1,000 ML 999 ML IV (08:00)
[2024-12-08 08:16] LABS: Absolute Lymphocyte Count 1.74 X10^3/uL (0.83-4.51); Absolute Neutrophil Count 7.4 X10^3/uL (2.0-7.7); Basophil# 0.06 X10^3/uL; Basophil% 0.6 % (0-1); Eosinophil# 0.11 X10^3/uL; Eosinophils% 1.1 % (0-5); Hematocrit 44.9 % (37-47); Hemoglobin 14.4 g/dL (12.0-15.0); Lymphocyte # 1.74 X10^3/ul (0.83-4.51); Lymphocyte % 17.8 % (19-41); Mean Corp Hgb Conc 32.1 g/dL (32-36); Mean Corpuscular Hgb 25.9 pg (27.0-32.0); Mean Corpuscular Volume 80.8 fL (81-99); Mean Platelet Vol. 9.5 fl (6.2-12.0); Monocyte# 0.39 X10^3/uL; NRBC Flagged by Analyzer 0 % (0-5); Neutrophil # 7.43 X10^3/uL (2.7-7.7); Platelet Count 367 K/mm3 (150-450); RBC Distribution Width CV 14.6 % (11.6-14.6); RBC Distribution Width SD 42.7 fl (35.1-43.9); Red Blood Count 5.56 M/mm3 (4.2-5.4); White Blood Count 9.8 K/mm3 (4.4-11.0)
--- NOTE | 2024-12-08 08:25 | RAD_ITS ---
PROCEDURE: CHEST 1 VIEW (PORTABLE) 12/08/2024 REASON FOR EXAM: LIGHTHEADED TECHNIQUE: Frontal view of the chest. COMPARISON: Chest x-ray 07/22/2019. RAD/Chest 1 View (Portable) IMPRESSION: No evidence of pneumoperitoneum. Chronic lung changes are seen, but no acute pneumonic process is clearly apprec iated. No pleural effusion or pneumothorax is seen. The cardiomediastinal silhouette is within the normal range, and unchanged. No acute osseous process is seen. Reading Location: [place] [id number]
[2024-12-08 08:32] LABS: Internal QC Validated? YES +Cl - CLEAR BKGD; Pregnancy, Serum, hCG Quali. NEGATIVE Negative
[2024-12-08 08:46] LABS: Lipase 15 U/L (13-75)
[2024-12-08 08:50] LABS: ALB/GLOB Ratio 1.2 RATIO (0.9-2.4); AST(SGOT) 19 U/L (<=31); Alanine Aminotransfer ALT/SGPT 13 U/L (<=34); Alkaline Phosphatase 81 U/L (35-104); Anion Gap 11 (5-15); BUN 9 mg/dL (4-19); BUN/Creat Ratio 12.6 RATIO (10-20); Calcium,Total 9.1 mg/dL (7.6-11.0); Carbon Dioxide 22.8 mmol/L (21.0-32.0); Chloride 101 mmol/L (98-108); Creatinine, Serum 0.68 mg/dL (0.70-1.20); EST Glomerular Filtration Rate 111 (>60); Free T3 3.3 pg/mL (2.18-3.98); Globulin 3.4 g/dL (2.2-4.2); Glucose 118 mg/dL (70-99); Potassium 4.5 mmol/L (3.3-5.1); Protein, Total 7.4 g/dL (5.9-8.4); Sodium Level 135 mmol/L (133-145); Thyroid Stim Hormone (TSH) 0.674 uIU/mL (0.300-4.200); Total Bilirubin 0.37 mg/dL (0.00-1.30)
[2024-12-08 09:11] VITALS: BP 124/76
[2024-12-08 10:35] LABS: Troponin T High Sens 2 HR < 6 ng/L (<=14)
[2024-12-08 10:35] LABS: Troponin T High Sensitivity < 6 ng/L (<=14)
[2024-12-08 11:00] VITALS: BP 124/57; PULSE 89; RESP 18; TEMP 36.6; O2SAT 99
== END 2024-12-08 11:20 | disposition home or self-care (01) ==
PROVIDERS: Emergency Provider Emergency Medicine; PCP Nurse Practitioner Family; Visit Provider Emergency Medicine
DX: R55 Syncope and collapse (principal); F17.200 Nicotine dependence, unspecified, uncomplicated
CPT/HCPCS: 71045; 80053; 83690; 84439; 84443; 84481; 84484; 84703; 85025; 93005; 96361; 96374; 96376; 99284; A4216

== ENCOUNTER → 2025-01-12 | Outpatient (CLI) | payer OTHER, SELFPAY ==
--- OUTSIDE RECORDS SUMMARY | 2025-01-12 06:13 | XMS RPT_ITS | CCD ---
Author Organization [facility] Care Team Providers Care Physicist [facility] [place] Name Role Phone Unavailable Unavailable Unavailable Abisai Wyman Unavailable Unavailable Abisai Wyman Unavailable Unavailable Barbara Castillo Primary Care Provider Barbara Cruz Primary Care Provider BARBARA CRUZ Admitting Unavailable BARBARA CRUZ Primary Care Unavailable Barbara Cruz Primary Care Provider Required, No Pcp Unavailable Unavailable Jenny Giang Unavailable Unavailable Walker BULK FOLDER, Mela Lima Primary Care Provider Walker BULK FOLDER, Mela Lima Primary Care Provider [phone] Walker BULK FOLDER, Mela Lima Unavailable [phone] Walker BULK FOLDER, Mela Lima Unavailable Deonte Dsouza Unavailable Mario INDUSTRIAL ENERGY ENGINEER-C Bethanie Attending Provider [phone] Dr. Alejandro Sandhu Attending Provider Walker BULK FOLDER, Mela Lima Primary Care Provider Walker BULK FOLDER, Mela Lima Unavailable Walker BULK FOLDER, Mela Liam Primary Care Provider Dr. Priyanka Leonardo Attending Provider [phone] Dr. Priyanka Leonardo Attending Provider [phone] Walker BULK FOLDER, Mela Lima Primary Care Provider Denise INDUSTRIAL ENERGY ENGINEER-C, Mela Primary Care Provider [phone] Denise INDUSTRIAL ENERGY ENGINEER-C, Mela Referring Provider Krys INDUSTRIAL ENERGY ENGINEER-CUyen Attending Provider [phone] Dr. Deonte Beckett DO Emergency Provider WALKER, MELA LIMA Attending Unavailable WALKER, MELA LIMA Primary Care Unavailable WALKER, MELA LIMA Attending Unavailable WALKER, MELA LIMA Primary Care Unavailable WALKER, MELA LIMA Attending Unavailable WALKER, MELA LMIA Primary Care Unavailable WALKER, MELA LIMA Attending Unavailable WALKER, MELA LIMA Primary Care Unavailable WALKER, MELA LIMA Attending Unavailable WALKER, MELA LIMA Primary Care Unavailable WALKER, MELA LIMA Attending Unavailable WALKER, MELA LIMA Primary Care Unavailable Kevin Bose Attending Unavailable Walker, Mela Referring Unavailable Walker, Mela Primary Care Unavailable Uyen Marcano Attending Unavailable Kevin Bose Attending Unavailable Priyanka Leonardo Attending Unavailable Walker, Mela Referring Unavailable Walker, Mela Primary Care Unavailable Walker, Mela Attending Unavailable Walker, Mela Referring Unavailable Walker, Mela Primary Care Unavailable Walker, Mela Attending Unavailable Walker, Mela Referring Unavailable Walker, Mela Primary Care Unavailable Deonte Beckett Attending Unavailable Walker, Mela Primary Care Unavailable Assessment, Health Risk Attending Unavaila ble Assessment, Health Risk Referring Unavaila ble Walker, Mela Primary Care Unavailable Walker, Mela Attending Unavailable Walker, Mela Referring Unavailable Walker, Mela Primary Care Unavailable Allergies Allergy Classification Reported Allergen(s) Allergy Type Date of Onset Reaction(s) Facility Amoxicillin / Clavulanate (1 source) Amoxicillin / Clavulanate Drug Allergy 9 Hives [facility] Work Phone: Clavulanate (1 source) Clavulanate Drug Allergy 0 [facility] Penicillins (antibiotic) (1 source) Penicillins Drug Allergy 5 [facility] (20 sources) Amoxicillin / Clavulanate; Translations: [Unknown] Drug Allergy 9 Hives, Anaphylaxis [facility] (20 sources) Clavulanate; Translations: [CLAVULANIC ACID] Drug Allergy 0 Shortness of breath [facility] (20 sources) Penicillins; Translations: [PENICILLINS] Propensity to adverse reactions to drug 5 [facility] (1 source) Amoxicillin / Clavulanate Drug Allergy Anaphylaxis [facility] (11 sources) Amoxicillin Drug Allergy 2 Shortness of breath [facility] (1 source) Amoxicillin Drug Allergy [address] [facility] (1 source) Clavulanate Drug Allergy [address] [facility] Medications Current Medications Medication Drug Class(es) Dates Sig (Normalized) Sig (Original) 24 hr amphetamine aspartate 7.5 mg / amphetamine sulfate 7.5 mg / dextroamphetamine saccharate 7.5 mg / dextroamphetamine sulfate 7.5 mg extended release oral capsule (20 sources) Central Nervous System Stimulant Start: 12-05-2024 End: 04-04-2025 take 1 capsule by mouth twice daily dextroamphetamine- amphetamine (ADDERALL XR) 30 MG 24 hr capsule Indications: Attention deficit hyperactivity disorder (ADHD), predominantly inattentive type Take 1 (one) capsule (30 mg total) by mouth 2 (two) times a day Start: 03/05/25. 60 capsule 03/05/2025 04/04/2025 Active Start: 08-01-2023 End: 09-10-2024 take 1 capsule by mouth twice daily dextroamphetamine-amphetamine (ADDERALL XR) 30 MG 24 hr capsule Indications: Attention deficit hyperactivity disorder (ADHD), predominantly inattentive type Take 1 (one) capsule (30 mg total) by mouth 2 (two) times a day . 60 capsule 08/08/2024 09/10/2024 Discontinued (Discontinued by another clinician) Start: 07-05-2023 End: 08-04-2023 take 25 mg by mouth once daily dextroamphetamine-amphetamine 25 mg CT24 Indications: Attention deficit hyperactivity disorder (ADHD), predominantly inattentive type Take 25 mg by mouth daily . 30 each 0 07/05/2023 08/04/2023 Active Start: 03-22-2023 End: 09-16-2024 Dextroamphetamine-Amphetamin e 10 mg tablet Discontinued PO March 22, 2023 12:00am September 16, 2024 8:28am Start: 01-31-2023 End: 03-13-2024 take 1 tablet by mouth once daily dextroamphetamine-amphetamine (ADDERALL) 10 mg tablet Indications: Attention deficit hyperactivity disorder (ADHD), predominantly inattentive type Take 1 (one) tablet (10 mg total) by mouth daily . 30 tablet 07/05/2023 03/13/2024 Discontinued (Therapy completed) Start: 01-31-2023 End: 07-05-2023 take 1 tablet by mouth twice daily dextroamphetamine-amphetamine (ADDERALL) 30 mg tablet Indications: Attention deficit hyperactivity disorder (ADHD), predominantly inattentive type Take 1 (one) tablet (30 mg total) by mouth 2 (two) times a day . 60 tablet 0 04/04/2023 07/05/2023 Discontinued (Dose adjustment) Start: 10-12-2021 End: 01-12-2023 take 1 tablet by mouth twice daily dextroamphetamine-amphetamine (ADDERALL) 30 mg tablet Indications: Attention deficit hyperactivity disorder (ADHD), predominantly inattentive type Take 1 (one) tablet (30 mg total) by mouth 2 (two) times a day . 60 tablet 0 09/06/2022 10/18/2022 Discontinued (Reorder (Suppress CancelRx Message to Pharmacy)) Start: 10-12-2021 End: 12-15-2022 take 1 tablet by mouth once daily dextroamphetamine-amphetamine (ADDERALL) 10 mg tablet Indications: Attention deficit hyperactivity disorder (ADHD), predominantly inattentive type Take 1 (one) tablet (10 mg total) by mouth daily . 30 tablet 0 09/06/2022 10/18/2022 Discontinued (Reorder (Suppress CancelRx Message to Pharmacy)) Start: 04-08-2021 End: 08-31-2021 take 1 tablet by mouth twice daily dextroamphetamine-amphetamine (ADDERALL) 30 mg tablet Indications: Attention deficit hyperactivity disorder (ADHD), predominantly inattentive type Take 1 (one) tablet (30 mg total) by mouth 2 (two) times a day . 60 tablet 0 06/06/2021 07/06/2021 Active Start: 03-16-2021 End: 03-10-2021 take 1 tablet by mouth twice daily dextroamphetamine-amphetamine (ADDERALL) 30 mg tablet Indications: Attention deficit hyperactivity disorder (ADHD), predominantly inattentive type Take 1 (one) tablet (30 mg total) by mouth 2 (two) times a day Start: 03/16/21. 60 tablet 0 03/16/2021 03/10/2021 Discontinued (Dose adjustment) Start: 01-07-2021 End: 08-03-2021 take 1 tablet by mouth once daily dextroamphetamine-amphetamine (ADDERALL) 10 mg tablet Indications: Attention deficit hyperactivity disorder (ADHD), predominantly inattentive type Take 1 (one) tablet (10 mg total) by mouth daily Start: 07/04/21. 30 tablet 0 07/04/2021 08/03/2021 Active Start: 08-26-2020 End: 12-08-2020 take 1 tablet by mouth once daily as needed dextroamphetamine-amphetamine (ADDERALL) 10 mg tablet Indications: Attention deficit hyperactivity disorder (ADHD), unspecified ADHD type Take 1 (one) tablet (10 mg total) by mouth daily as needed Start: 09/23/20. 30 tablet 0 09/23/2020 12/08/2020 Discontinued (Therapy completed) Start: 03-11-2020 End: 06-01-2020 take 1 tablet by mouth once daily dextroamphetamine-amphetamine (ADDERALL) 30 mg tablet Indications: Attention deficit hyperactivity disorder (ADHD), unspecified ADHD type Take 1 (one) tablet (30 mg total) by mouth daily Start: 03/11/20. 30 tablet 0 03/11/2020 06/01/2020 Discontinued (Cost of medication) Start: 01-09-2020 End: 04-08-2020 take 1 capsule by mouth once daily in the morning dextroamphetamine-amphetamine (ADDERALL XR) 30 MG 24 hr capsule Indications: Attention deficit hyperactivity disorder (ADHD), unspecified ADHD type Take 1 (one) capsule (30 mg total) by mouth every morning Start: 03/09/20. 30 capsule 0 03/09/2020 04/08/2020 Active Start: 10-03-2019 End: 07-01-2020 take 1 tablet by mouth once daily as needed dextroamphetamine-amphetamine (ADDERALL) 10 mg tablet Indications: Attention deficit hyperactivity disorder (ADHD), unspecified ADHD type Take 1 (one) tablet (10 mg total) by mouth daily as needed . 30 tablet 0 06/01/2020 Active Start: 06-20-2019 End: 07-20-2019 take 1 tablet by mouth once daily as needed dextroamphetamine-amphetamine (ADDERALL) 10 mg tablet Indications: Attention deficit hyperactivity disorder (ADHD), unspecified ADHD type Take 1 (one) tablet (10 mg total) by mouth daily as needed . 30 tablet 0 06/20/2019 07/20/2019 Active Start: 02-27-2019 End: 09-16-2024 take 1 tablet by mouth twice daily Dextroamphetamine-Amphetamine 30 MG tabl et Discontinued 30 mg PO TWICE A DAY July 21, 2019 1:00am September 16, 2024 8:28am Start: 11-13-2018 End: 02-21-2019 take 1 tablet by mouth twice daily dextroamphetamine-amphetamine (ADDERALL) 30 mg tablet Indications: Attention deficit hyperactivity disorder (ADHD), unspecified ADHD type Take 1 (one) tablet (30 mg total) by mouth 2 (two) times a day Start: 01/12/19. 60 tablet 0 01/12/2019 02/21/2019 Discontinued (Reorder) Start: 10-08-2018 End: 11-13-2018 take 1 tablet by mouth twice daily dextroamphetamine-amphetamine (ADDERALL) 20 mg tablet Indications: Attention deficit hyperactivity disorder (ADHD), unspecified ADHD type Take 1 (one) tablet (20 mg total) by mouth 2 (two) times a day Start: 10/08/18. 60 tablet 0 10/08/2018 11/13/2018 Discontinued (Reorder) Start: 10-08-2018 take 1 tablet by leena twice daily dextroamphetamine-amphetamine (ADDERALL) 20 mg tablet Indications: Attention deficit hyperactivity disorder (ADHD), unspecified ADHD type Take 1 (one) tablet (20 mg total) by mouth 2 (two) times a day Start: 10/08/18. 60 tablet 0 10/08/2018 Active Start: 09-08-2018 End: 08-09-2018 take 1 tablet by mouth twice daily dextroamphetamine-amphetamine (ADDERALL) 20 mg tablet Indications: Attention deficit hyperactivity disorder (ADHD), unspecified ADHD type Take 1 (one) tablet (20 mg total) by mouth 2 (two) times a day Start: 09/08/18. 60 tablet 0 09/08/2018 08/09/2018 Discontinued Start: 08-09-2018 End: 08-09-2018 take 1 tablet by mouth twice daily dextroamphetamine-amphetamine (ADDERALL) 20 mg tablet Indications: Attention deficit hyperactivity disorder (ADHD), unspecified ADHD type Take 1 (one) tablet (20 mg total) by mouth 2 (two) times a day . 60 tablet 0 08/09/2018 08/09/2018 Discontinued ARIPiprazole 10 mg oral tablet (2 sources) Atypical Antipsychotic Start: 06-01-2020 End: 08-30-2020 take 1 tablet by mouth once daily ARIPiprazole (ABILIFY) 10 MG tablet Indications: Depression, unspecified depression type , Mood disorder (HCC) Take 1 (one) tablet (10 mg total) by mouth daily . 90 tablet 0 06/01/2020 08/30/2020 Active cloNIDine hydrochloride 0.1 mg oral tablet (20 sources) Central alpha-2 Adrenergic Agonist Start: 08-09-2018 End: 09-16-2024 take 1 tablet by mouth once daily cloNIDine HCL (CATAPRES) 0.1 MG tablet Take 1 (one) tablet (0.1 mg total) by mouth nightly . 90 tablet 1 10/12/2023 Active ergocalciferol 1.25 mg oral capsule (20 sources) Provitamin D2 Compound Start: 01-31-2023 End: 08-08-2025 take 1 capsule by mouth every week ergocalciferol (ERGOCALCIFEROL) 1,250 mcg (50,000 unit) capsule Indications: Vitamin D deficiency Take 1 (one) capsule (50,000 Units total) by mouth once a week . 12 capsule 1 08/08/2024 08/08/2025 Active Start: 07-05-2021 End: 07-13-2022 take 1 capsule by mouth every week ergocalciferol (ERGOCALCIFEROL) 1,250 mcg (50,000 unit) capsule Indications: Vitamin D deficiency Take 1 (one) capsule (50,000 Units total) by mouth once a week . 12 capsule 1 07/13/2021 Active lamoTRIgine 100 mg oral tablet (20 sources) Mood Stabilizer, Anti-epileptic Agent Start: 01-31-2023 End: 08-08-2025 take 1 tablet by mouth once daily lamoTRIgine (LAMICTAL) 100 MG tablet Indications: Depression, unspecified depression type Take 1 (one) tablet (100 mg total) by mouth daily . 90 tablet 1 08/08/2024 08/08/2025 Active Start: 10-18-2022 End: 10-18-2023 take 3 tablets by mouth once daily lamoTRIgine (LAMICTAL) 25 MG tablet Indications: Mood disorder (HCC) Take 3 (three) tablets (75 mg total) by mouth daily . 270 tablet 1 10/18/2022 10/18/2023 Active Start: 07-19-2022 End: 07-19-2023 take 2 tablets by mouth once daily lamoTRIgine (LAMICTAL) 25 MG tablet Indications: Mood disorder (HCC) Take 2 (two) tablets (50 mg total) by mouth daily . 180 tablet 1 07/19/2022 10/18/2022 Discontinued (Reorder (Suppress CancelRx Message to Pharmacy)) Start: 04-05-2022 End: 04-05-2023 take 1 tablet by mouth once daily lamoTRIgine (LAMICTAL) 25 MG tablet Take 1 (one) tablet (25 mg total) by mouth daily . 90 tablet 1 04/05/2022 07/19/2022 Discontinued lisdexamfetamine dimesylate 60 mg oral capsule (16 sources) Central Nervous System Stimulant Start: 10-13-2024 End: 11-12-2024 take 1 capsule by mouth once daily in the morning lisdexamfetamine (Vyvanse) 60 MG capsule Indications: Attention deficit hyperactivity disorder (ADHD), predominantly inattentive type Take 1 (one) capsule (60 mg total) by mouth every morning . 30 capsule 10/13/2024 Active Start: 09-15-2024 End: 10-13-2024 take 1 capsule by mouth once daily in the morning lisdexamfetamine (Vyvanse) 50 MG capsule Indications: Attention deficit hyperactivity disorder (ADHD), predominantly inattentive type Take 1 (one) capsule (50 mg total) by mouth every morning . 30 capsule 09/15/2024 10/13/2024 Discontinued (Dose adjustment) Start: 09-10-2024 End: 12-05-2024 take 1 capsule by mouth once daily Lisdexamfetamine (Vyvanse) 40 mg capsule Active 40 mg PO daily September 16, 2024 12:00am Start: 02-04-2021 End: 03-10-2021 take 1 capsule by mouth once daily in the morning lisdexamfetamine (VYVANSE) 20 MG capsule Indications: Attention deficit hyperactivity disorder (ADHD), unspecified ADHD type Take 1 (one) capsule (20 mg total) by mouth every morning Start: 02/04/21. 30 capsule 0 02/04/2021 03/10/2021 Discontinued (Ineffective) Start: 02-04-2021 End: 12-08-2020 take 1 capsule by mouth once daily in the morning lisdexamfetamine (VYVANSE) 20 MG capsule Indications: Attention deficit hyperactivity disorder (ADHD), unspecified ADHD type Take 1 (one) capsule (20 mg total) by mouth every morning Start: 02/04/21. 30 capsule 0 02/04/2021 12/08/2020 Discontinued (Reorder) Start: 01-05-2021 End: 03-10-2021 take 1 capsule by mouth once daily in the morning lisdexamfetamine (VYVANSE) 20 MG capsule Indications: Attention deficit hyperactivity disorder (ADHD), unspecified ADHD type Take 1 (one) capsule (20 mg total) by mouth every morning Start: 02/04/21. 30 capsule 0 02/04/2021 03/06/2021 Active Start: 01-05-2021 End: 12-08-2020 take 1 capsule by mouth once daily in the morning lisdexamfetamine (VYVANSE) 20 MG capsule Indications: Attention deficit hyperactivity disorder (ADHD), unspecified ADHD type Take 1 (one) capsule (20 mg total) by mouth every morning Start: 01/05/21. 30 capsule 0 01/05/2021 12/08/2020 Discontinued (Reorder) Start: 12-08-2020 End: 03-10-2021 take 1 capsule by mouth once daily in the morning lisdexamfetamine (VYVANSE) 20 MG capsule Indications: Attention deficit hyperactivity disorder (ADHD), unspecified ADHD type Take 1 (one) capsule (20 mg total) by mouth every morning . 30 capsule 0 12/08/2020 03/10/2021 Discontinued (Ineffective) ondansetron 4 mg oral tablet (7 sources) Serotonin-3 Receptor Antagonist Start: 02-28-2024 take 1 tablet by mouth every eight hours as needed for nausea ondansetron (ZOFRAN) 4 MG tablet Take 1 (one) tablet (4 mg total) by mouth every 8 (eight) hours as needed for nausea . 02/28/2024 Active pantoprazole 40 mg delayed release oral tablet (8 sources) Proton Pump Inhibitor Start: 03-13-2024 End: 09-09-2024 take 1 tablet by mouth once daily Pantoprazole 40 mg tablet,delayed release (DR/EC) Active 40 mg PO daily September 16, 2024 12:00am polysaccharide iron complex 150 mg oral capsule (12 sources) Start: 04-04-2023 End: 07-04-2024 take 1 capsule by mouth twice daily polysaccharide iron complex (IFEREX) 150 mg iron capsule Indications: Iron deficiency Take 1 (one) capsule (150 mg total) by mouth 2 (two) times a day . 180 capsule 1 07/05/2023 07/04/2024 Active Start: 07-05-2021 End: 07-13-2022 take 1 capsule by mouth twice daily polysaccharide iron complex (NIFEREX) 150 mg iron capsule Indications: Iron deficiency Take 1 (one) capsule (150 mg total) by mouth 2 (two) times a day . 180 capsule 1 07/13/2021 07/13/2022 Active promethazine hydrochloride 25 mg oral tablet (4 sources) Phenothiazine Start: 11-17-2020 End: 04-15-2021 take 1 tablet by mouth four times daily promethazine (PHENERGAN) 25 MG tablet Take 25 mg by mouth 4 (four) times a day . 0 11/17/2020 04/15/2021 Discontinued (Therapy completed) Comment on above: May cause drowsiness . Alcohol may intensify this effect. Use care when operating dangerous machinery.Obtain medical advice before taking any non-prescription drugs as some may affect the action of this medication. rimegepant 75 mg disintegrating oral tablet (20 sources) Start: 01-31-2023 End: 06-20-2024 take 1 tablet by mouth once as needed Rimegepant (Nurtec Odt) 75 mg tablet,disintegrat ing Active 75 mg PO ONCE as needed September 16, 2024 12:00am as a single dose Start: 02-10-2022 apply 1 tablet topic ally once daily as needed rimegepant (Nurtec ODT) 75 mg ODT Indications: Intractable migraine with aura without status migrainosus Dissolve 1 (one) tablet (75 mg total) on top of tongue daily as needed . 10 tablet 5 02/10/2022 Active sertraline 100 mg oral tablet (20 sources) Serotonin Reuptake Inhibitor Start: 03-22-2023 Sertraline Active MG PO March 21, 2023 11:00pm Start: 03-01-2023 End: 09-10-2025 take 1 tablet by mouth once daily sertraline (ZOLOFT) 100 MG tablet Indications: Depression, unspecified depression type Take 1 (one) tablet (100 mg total) by mouth daily . 90 tablet 1 09/10/2024 09/10/2025 Active Start: 02-10-2022 End: 07-19-2023 take 1 tablet by mouth once daily sertraline (ZOLOFT) 25 MG tablet Indications: Depression, unspecified depression type Take 1 (one) tablet (25 mg total) by mouth daily . 90 tablet 1 07/19/2022 07/19/2023 Active sulfamethoxazole 800 mg / trimethoprim 160 mg oral tablet (3 sources) Dihydrofolate Reductase Inhibitor Antibacterial, Sulfonamide Antimicrobial Start: 09-08-2024 take 1 tablet by mouth twice daily sulfamethoxazole-trimethoprim (BACTRIM DS,SEPTRA DS) 800-160 mg per tablet Take 1 (one) tablet by mouth 2 (two) times a day . 20 tablet 09/08/2024 Active topiramate 25 mg oral capsule (20 sources) Start: 09-16-2024 Topiramate 25 mg capsule, sprinkle Active PO September 16, 2024 12:00am Start: 03-01-2023 End: 10-12-2023 topiramate (TOPAMAX) 25 MG t ablet Indications: Intractable migraine with aura without status migrainosus Take 25mg in the AM, and 50mg in the PM . 270 tablet 1 10/12/2023 Active Start: 02-10-2022 End: 07-19-2022 topiramate (TOPAMAX) 25 MG t ablet Indications: Intractable migraine with aura without status migrainosus Take 25mg in the AM, and 50mg in the PM . 270 tablet 1 07/19/2022 Active Completed/Discontinued Medications Medication Drug Class(es) Dates Sig (Normalized) Sig (Original) baclofen 10 mg oral tablet (1 source) gamma-Aminobutyric Acid-ergic Agonist Start: 08-03-2021 End: 02-10-2022 take 1 tablet by mouth twice daily baclofen (LIORESAL) 10 MG tablet Take 10 mg by mouth 2 (two) times a day . 0 08/03/2021 02/10/2022 Discontinued (Therapy completed) 24 hr buPROPion hydrochloride 300 mg extended release oral tablet (20 sources) Aminoketone Start: 03-01-2020 End: 03-22-2023 take 1 tablet by mouth once daily in the morning Bupropion Hcl (Wellbutrin Xl) 300 mg tablet extended release 24 hr Discontinued 300 mg PO EVERY MORNING June 17, 2020 1:00am March 22, 2023 3:42pm Start: 03-01-2020 End: 06-01-2020 take 1 tablet by mouth once daily buPROPion (Wellbutrin XL) 150 MG 24 hr tablet Indications: Depression, unspecified depression type Take 1 (one) tablet (150 mg total) by mouth daily Take for 7 days then increase dose to 300 mg daily for 7 days . 7 tablet 0 03/01/2020 06/01/2020 Discontinued (Therapy completed) Start: 11-13-2018 End: 11-13-2019 take 1 tablet by mouth once daily buPROPion (WELLBUTRIN XL) 150 MG 24 hr tablet Indications: Depression, unspecified depression type Take 1 (one) tablet (150 mg total) by mouth daily . 90 tablet 3 11/13/2018 06/20/2019 Discontinued (Therapy completed) clindamycin 300 mg oral [...] daily FLUoxetine (PROZAC) 40 MG capsule Indications: ANISH (generalized anxiety disorder) Take 1 (one) capsule (40 mg total) by mouth daily . 90 capsule 1 09/14/2021 02/10/2022 Discontinued (Therapy completed) Start: 12-08-2020 End: 12-08-2021 take 1 capsule by mouth once daily FLUoxetine (PROZAC) 20 MG capsule Indications: ANISH (generalized anxiety disorder) Take 1 (one) capsule (20 mg total) by mouth daily . 90 capsule 1 12/08/2020 12/08/2021 Active take 1 tablet by leena th once daily FLUoxetine 20 mg oral tablet ; 1 tab(s) orally once a day Quantity: 0 Refills: 0 Ordered: 03-Aug-2021 Lionel Aranda Generic Substitution Allowed meloxicam 15 mg oral tablet (1 source) Nonsteroidal Anti-inflammatory Drug Start: 08-03-2021 End: 02-10-2022 take 1 tablet by mouth once daily at mealtime meloxicam (MOBIC) 15 MG tablet take 1 tablet by mouth daily WITH FOOD IN THE MORNING 0 08/03/2021 02/10/2022 Discontinued (Therapy completed) predniSONE 10 mg oral tablet (2 sources) Start: 07-29-2024 End: 09-10-2024 predniSONE (DELTASONE) 10 MG tablet Indications: Chronic SI joint pain Take 4 tablets po x 3 day, then 3 tablets x 3 days, then 2 tablets x 3 days, then 1 tablet x 3 days. . 30 tablet 07/29/2024 09/10/2024 Discontinued (Discontinued by another clinician) semaglutide, weight loss, (Wegovy) 0.25 mg/0.5 mL Pen (5 sources) Start: 03-13-2024 End: 09-10-2024 semaglutide, weight loss, (Wegovy) 0.25 mg/0.5 mL Pen Indications: Morbid obesity with BMI of 40.0-44.9, adult (HCC) , Dyslipidemia, goal LDL below 100 Inject 0.5 mL (0.25 mg total) under the skin every 7 days . 2 mL 03/13/2024 09/10/2024 Discontinued Start: 03-13-2024 semaglutide, w eight loss, (Wegovy) 0.25 mg/0.5 mL Pen Indications: Morbid obesity with BMI of 40.0-44.9, adult (HCC) , Dyslipidemia, goal LDL below 100 Inject 0.5 mL (0.25 mg total) under the skin every 7 days . 2 mL 03/13/2024 Active spironolactone 100 mg oral tablet (5 sources) Aldosterone Antagonist Start: 03-22-2023 End: 09-16-2024 Spironolactone 100 mg tablet Discontinued mg PO March 22, 2023 12:00am September 16, 2024 8:28am Start: 03-22-2023 Spironolactone Active MG PO March 21, 2023 11:00pm Start: 07-19-2022 End: 07-19-2023 take 1 tablet by mouth once daily spironolactone (ALDACTONE) 25 MG tablet Take 1 (one) tablet (25 mg total) by mouth daily . 90 tablet 1 07/19/2022 10/18/2022 Discontinued (Therapy completed) Problems Active Problems Problem Classification Problem Date Documented Date Episodic/Chronic Anxiety disorders (20 sources) Generalized anxiety disorder; Translations: [Generalized anxiety disorder] Onset: 06-23-2019 06-23-2019 Chronic Attention-deficit conduct and disruptive behavior disorders (20 sources) Attention deficit hyperactivity disorder; Translations: [Attention-deficit hyperactivity disorder, unspecified type] Onset: 08-09-2018 08-09-2018 Chronic Attention-deficit, conduct, and disruptive behavior disorders (19 sources) Attention deficit hyperactivity disorder, predominantly inattentive type; Translations: [Attention-deficit hyperactivity disorder, predominantly inattentive type] Chronic Attention-deficit, conduct, and disruptive behavior disorders (2 sources) Attention-deficit hyperactivity disorder, predominantly inattentive type; Translations: [Attention-deficit hyperactivity disorder, predominantly inattentive type] Onset: 08-09-2018 Chronic Conditions associated with dizziness or vertigo (1 source) Dizziness and giddiness; Translations: [Dizziness and giddiness] Onset: 12-11-2024 Episodic Disorders of lipid metabolism (9 sources) Hyperlipidemia; Translations: [Hyperlipidemia, unspecified] Onset: 03-13-2024 03-13-2024 Chronic Headache; including migraine (20 sources) Refractory migraine with aura; Translations: [Migraine with aura, intractable, without status migrainosus] Onset: 02-23-2022 Chronic Headache; including migraine (1 source) Cervicogenic headache; Translations: [Cervicogenic headache] 05-26-2024 Episodic Influenza (11 sources) Influenza due to Influenza A virus; Translations: [Influenza due to other identified influenza virus with other respiratory manifestations] 07-23-2019 Episodic Mood disorders (20 sources) Depressive disorder; Translations: [Mood disorder] Onset: 06-23-2019 06-23-2019 Chronic Nausea and vomiting (2 sources) Vomiting 11-17-2020 Episodic Comment on above: VOMITING Noninfectious gastroenteritis (1 source) Acute gastroenteritis; Translations: [Other and unspecified noninfectious gastroenteritis and colitis] 11-17-2020 Episodic Nutritional deficiencies (20 sources) Vitamin D deficiency; Translations: [Vitamin D deficiency, unspecified] Onset: 04-18-2022 Chronic Other bone disease and musculoskeletal deformities (12 sources) Segmental and somatic dysfunction; Translations: [Segmental and somatic dysfunction of cervical region] 03-27-2023 Episodic Other nutritional; endocrine; and metabolic disorders (8 sources) Body mass index 40+ - severely obese; Translations: [Morbid (severe) obesity due to excess calories] Onset: 03-13-2024 03-13-2024 Chronic Other upper respiratory disease (11 sources) Respiratory tract congestion; Translations: [Nasal congestion] 06-26-2021 Episodic Other upper respiratory infections (13 sources) Common cold; Translations: [Acute nasopharyngitis [common cold]] Episodic Sprains and strains (20 sources) Strain of thoracic region; Translations: [Strain of muscle and tendon of back wall of thorax, initial encounter] 06-17-2020 Episodic Syncope (1 source) Near syncope; Translations: [Syncope and collapse] 12-08-2024 Episodic Unclassified (5 sources) Patient encounter status; Translations: [Encounter for well adult exam without abnormal findings] Unclassified (1 source) Screening status; Translations: [Screening for thyroid disorder] Unclassified (1 source) Gastroenteritis, acute 11-17-2020 Unclassified (2 sources) Results Onset: 03-18-2024 Past or Other Problems Problem Classification Problem Date Documented Da te Episodic/Chronic Immunizations and screening for infectious disease (20 sources) Patient encounter status; Translations: [Encounter for screening for COVID-19] Onset: 02-23-2022 Resolved: 09-10-2024 Episodic Mood disorders (12 sources) Mood disorders; Translations: [Depression, unspecified] Onset: 06-23-2019 03-13-2024 Nutritional deficiencies (20 sources) Iron deficiency; Translations: [Iron deficiency] Onset: 04-18-2022 Episodic Other aftercare (2 sources) Encounter for therapeutic drug level monitoring; Translations: [Encounter for therapeutic drug level monitoring] Onset: 03-13-2024 Episodic Other bone disease and musculoskeletal deformities (4 sources) Segmental and somatic dysfunction of cervical region; Translations: [Nonallopathic lesions, cervical region] Onset: 05-26-2024 03-22-2023 Episodic Other bone disease and musculoskeletal deformities (4 sources) Segmental and somatic dysfunction of lumbar region; Translations: [Nonallopathic lesions, lumbar region] Onset: 05-26-2024 03-22-2023 Episodic Other bone disease and musculoskeletal deformities (4 sources) Segmental and somatic dysfunction of pelvic region; Translations: [Nonallopathic lesions, pelvic region] Onset: 05-26-2024 03-22-2023 Episodic Other bone disease and musculoskeletal deformities (4 sources) Segmental and somatic dysfunction of thoracic region; Translations: [Nonallopathic lesions, thoracic region] Onset: 05-26-2024 03-22-2023 Episodic Other screening for suspected conditions (not mental disorders or infectious disease) (3 sources) Encounter for screening mammogram for malignant neoplasm of breast; Translations: [Encounter for screening mammogram for malignant neoplasm of breast] Onset: 03-13-2024 Episodic Other skin disorders (20 sources) Hidradenitis suppurativa; Translations: [Hidradenitis suppurativa] Onset: 08-09-2018 08-09-2018 Episodic Spondylosis; intervertebral disc disorders; other back problems (10 sources) Backache; Translations: [Neck pain] Onset: 08-14-2024 08-03-2021 Episodic Comment on above: BACK PAIN Results Test Name Value Interpretation Reference Range Facility 12 Lead EKGon 12-08-2024 12 Lead EKG [facility] Cardiovascular Services [address] [place] [address] 12 Lead EKG 12/08/24 0759 MR#: [id number] Acct: [id number] Name: FRIDA WIN Rep #: [id number] : 1980 44 From: Sedrick Anglin MD Attending Dr: Status: DEP ER Ordering Dr: Deonte Beckett DO Date: 12/08/24 Location: ED Sex: F C Admitted: Test Reason : DIZZINESS Blood Pressure : */* mmHG Vent. Rate : 74 BPM Atrial Rate : 74 BPM P-R Int : 116 ms QRS Dur : 90 ms QT Int : 392 ms P-R-T Axes : 53 71 47 degrees QTcB Int : 435 ms Normal sinus rhythm Normal ECG Confirmed by ROSALIE SANCHES, SEDRICK ([id number]), editorial manager BHASKAR RASHID ([id number]) on 12/09/2024 11:04:54 AM Referred By: Confirmed By: SEDRICK ANGLIN MD 12/09/24 1104 Date Sedrick Anglin MD CC: INDUSTRIAL ENERGY ENGINEERDalila Walker; Dr. Deonte Beckett DO Signed Normal [facility] Absolute lymphocyte countOrd ered By: Deonte Beckett on 12-08-2024 Lymphocytes Auto (Unsp spec) [#/Vol] 1.74 10*3/uL 0.83-4.[address] [facility] Absolute neutrophil countOrd ered By: Doente Beckett on 12-08-2024 Neutrophils (Bld) [#/Vol] 7.4 10*3/uL 2.0-7.[address] [facility] Anion gap in Serum or Plasma Ordered By: Deonte Beckett on 12-08-2024 Anion gap [Moles/Vol] 11 mmol/L 5-15 [facility] Automated lymphocyte count a s percentage of total leukocytesOrdered By: Deonte Beckett on 12-08-2024 Lymphocytes/100 WBC Auto (Unsp spec) 17.8 % Low 19-[address] [facility] BUN/creatinine ratioOrdered By: Deonte Beckett on 12-08-2024 Urea nitrogen/Creatinine [Mass ratio] 12.6 mg/mg 10-[address] [facility] Basophil percentageOrdered B y: Deonte Beckett on 12-08-2024 Basophils/100 WBC (Bld) 0.6 % 0-1 [facility] Bilirubin, totalOrdered By: Deonte Beckett on 12-08-2024 Bilirubin [Mass/Vol] 0.37 mg/dL 0.00-1.30 [facility] CBC W/Diff, Automatedon 11-17 Absolute Lymph 1.74 X10 3/uL Normal 0.83-4.[address] [facility] Comment on above: Performed By: #### L 500.2900, L100.0200 #### [facility] Laboratory [address] [place], [address] Absolute Neut 7.4 X10 3/uL Normal 2.0-7.[address] [facility] Comment on above: Performed By: #### L 500.2900, L100.0200 #### [facility] [address] [place], [address] Basophils/100 WBC (Bld) 0.6 % Normal 0-1 [facility] Comment on above: Performed By: #### L 500.2900, L100.0200 #### [facility] [address] [place], [address] Eosinophils/100 WBC (Bld) 1.1 % Normal 0-[address] [facility] Comment on above: Performed By: #### L 500.2900, L100.0200 #### [facility] [address] [place], [address] Erythrocyte distribution width (RBC) [Ratio] 14.6 % Normal 11.6-14.[address] [facility] Comment on above: Performed By: #### L 500.2900, L100.0200 #### [facility] [address] [place], [address] Hematocrit (Bld) [Volume fraction] 44.9 % Normal 37-[address] [facility] Comment on above: Performed By: #### L 500.2900, L100.0200 #### [facility] [address] [place], [address] Hemoglobin (Bld) [Mass/Vol] 14.4 g/dL Normal 12.0-15.[address] [facility] Comment on above: Performed By: #### L 500.2900, L100.0200 #### [facility] [address] [place], [address] IG% 0.500 Normal 0.0-0.[address] [facility] Comment on above: Result Comment: IG% - Immature Granulocytes (promyelocytes, myelocytes and metamyelocytes) > 1% indicates that a LEFT SHIFT is Present. Performed By: #### L 500.2900, L100.0200 #### [facility] [address] [place], [address] Lymphocytes/100 WBC (Bld) 17.8 % Low 19-[address] [facility] Comment on above: Performed By: #### L 500.2900, L100.0200 #### [facility] [address] [place], [address] MCH (RBC) [Entitic mass] 25.9 pg Low 27.0-32.[address] [facility] Comment on above: Performed By: #### L 500.2900, L100.0200 #### [facility] [address] [place], [address] MCHC (RBC) [Mass/Vol] 32.1 g/dL Normal 32-36 [facility] Comment on above: Performed By: #### L 500.2900, L100.0200 #### [facility] [address] [place], [address] MCV (RBC) [Entitic vol] 80.8 fL Low 81-99 [facility] Comment on above: Performed By: #### L 500.2900, L100.0200 #### [facility] [address] [place], [address] Monocytes/100 WBC (Bld) 4.0 % Normal 0-10 [facility] Comment on above: Performed By: #### L 500.2900, L100.0200 #### [facility] [address] [place], [address] Neutrophils/100 WBC (Bld) 76.0 % High 47-[address] [facility] Comment on above: Performed By: #### L 500.2900, L100.0200 #### [facility] [address] [place], [address] Nucleated RBC (Bld) [#/Vol] 0 10*3/uL Normal 0-[address] [facility] Comment on above: Performed By: #### L 500.2900, L100.0200 #### [facility] [address] [place], [address] Platelet mean volume (Bld) [Entitic vol] 9.5 fL Normal 6.2-12.[address] [facility] Comment on above: Performed By: #### L 500.2900, L100.0200 #### [facility] [address] [place], [address] Platelets (Bld) [#/Vol] 367 10*3/uL Normal 150-[address] [facility] Comment on above: Performed By: #### L 500.2900, L100.0200 #### [facility] [address] [place], [address] RBC (Bld) [#/Vol] 5.56 10*6/uL High 4.2-5.4 [facility] Comment on above: Performed By: #### L 500.2900, L100.0200 #### [facility] [address] [place], [address] RDW SD 42.7 fl Normal 35.1-43.[address] [facility] Comment on above: Performed By: #### L 500.2900, L100.0200 #### [facility] [address] [place], [address] WBC (Bld) [#/Vol] 9.8 10*3/uL Normal 4.4-11.0 [facility] Comment on above: Performed By: #### L 500.2900, L100.0200 #### [facility] [address] [place], [address] Carbon dioxide, total [Moles /volume] in Central venous bloodOrdered By: Deonte Beckett on 12-08-2024 CO2 [Moles/Vol] 22.8 mmol/L 21.0-32.[address] [facility] Chest 1 View (Portable)on Chest 1 View (Portable) [facility] Imaging Services [address] [facility] [address] [place] [place], [place] [address] Chest 1 View (Portable) MR#: [id number] Acct: [id number] Name: FRIDA WIN Rep #: [id number] : 1980 F 44 From: Erickson Silvestre PCP: FILIBERTO Cooper Status: REG ER Study: Chest 1 View (Portable) Date of Exam: 12/08/24 Exam# [id number] Ordering Dr: Deonte Beckett DO PROCEDURE: CHEST 1 VIEW (PORTABLE) 12/08/2024 REASON FOR EXAM: LIGHTHEADED TECHNIQUE: Frontal view of the chest. COMPARISON: Chest x-ray 07/22/2019. RAD/Chest 1 View (Portable) IMPRESSION: No evidence of pneumoperitoneum. Chronic lung changes are seen, but no acute pneumonic process is clearly appreciated. No pleural effusion or pneumothorax is seen. The cardiomediastinal silhouette is within the normal range, and unchanged. No acute osseous process is seen. Reading Location: [place] [address] CC: FILIBERTO Walker; Dr. Deonte Beckett DO Associate Doctor: Signed Normal [facility] Chloride assayOrdered By: Cipriano Beckett on 12-08-2024 Chloride [Moles/Vol] 101 mmol/L 98-108 [facility] Comprehensive Metabolic Prof ilon 12-08-2024 Albumin [Mass/Vol] 4.0 g/dL Normal 3.5-5.0 [facility] Comment on above: Performed By: #### L 500.2900, L100.0200 #### [facility] [address] [place], [address] Albumin/Globulin [Mass ratio] 1.2 {ratio} Normal 0.9-2.[address] [facility] Comment on above: Performed By: #### L 500.2900, L100.0200 #### [facility] [address] [place], [address] ALK PHOS 81 U/L Normal 35-[address] [facility] Comment on above: Performed By: #### L 500.2900, L100.0200 #### [facility] [address] [place], [address] ALT [Catalytic activity/Vol] 13 U/L Normal <=[address] [facility] Comment on above: Performed By: #### L 500.2900, L100.0200 #### [facility] [address] [place], [address] AST [Catalytic activity/Vol] 19 U/L Normal <=[address] [facility] Comment on above: Result Comment: Hemo lysis present, Results??could be affected. ?? Performed By: #### L 500.2900, L100.0200 #### [facility] [address] [place], [address] Bilirubin [Mass/Vol] 0.37 mg/dL Normal 0.00-1.30 [facility] Comment on above: Performed By: #### L 500.2900, L100.0200 #### [facility] [address] [place], [address] BUN/CRE 12.6 RATIO Normal 10-[address] [facility] Comment on above: Performed By: #### L 500.2900, L100.0200 #### [facility] [address] [place], [address] Calcium [Mass/Vol] 9.1 mg/dL Normal 7.6-11.0 [facility] Comment on above: Performed By: #### L 500.2900, L100.0200 #### [facility] [address] [place], [address] Chloride [Moles/Vol] 101 mmol/L Normal 98-108 [facility] Comment on above: Performed By: #### L 500.2900, L100.0200 #### [facility] [address] [place], [address] CO2 [Moles/Vol] 22.8 mmol/L Normal 21.0-32.[address] [facility] Comment on above: Performed By: #### L 500.2900, L100.0200 #### [facility] [address] [place], [address] Creatinine [Mass/Vol] 0.68 mg/dL Low 0.70-1.20 [facility] Comment on above: Performed By: #### L 500.2900, L100.0200 #### [facility] [address] [place], [address] ECRCL 127.80 ml/min Normal 50-[address] [facility] Comment on above: Performed By: #### L 500.2900, L100.0200 #### [facility] [address] [place], [address] GAP 11 Normal 5-[address] [facility] Comment on above: Performed By: #### L 500.2900, L100.0200 #### [facility] [address] [place], [address] GFR/1.73 sq M.predicted among non-blacks MDRD (S/P/Bld) [Vol rate/Area] 111 mL/min/{1.73_m2} Normal >[address] [facility] Comment on above: Result Comment: mL/m in/1.73m2 CKD-EPI Creatinine Equation (2020) Performed By: #### L 500.2900, L100.0200 #### [facility] [address] [place], [address] Globulin (S) [Mass/Vol] 3.4 g/dL Normal 2.2-4.2 [facility] Comment on above: Performed By: #### L 500.2900, L100.0200 #### [facility] [address] [place], [address] Glucose [Mass/Vol] 118 mg/dL High 70-99 [facility] Comment on above: Performed By: #### L 500.2900, L100.0200 #### [facility] [address] [place], [address] Potassium [Moles/Vol] 4.5 mmol/L Normal 3.3-5.1 [facility] Comment on above: Result Comment: Hemo lysis present, Results??could be affected. ?? Performed By: #### L 500.2900, L100.0200 #### [facility] [address] [place], [address] Sodium [Moles/Vol] 135 mmol/L Normal 133-145 [facility] Comment on above: Performed By: #### L 500.2900, L100.0200 #### [facility] [address] [place], [address] T PROT 7.4 g/dL Normal 5.9-8.[address] [facility] Comment on above: Performed By: #### L 500.2900, L100.0200 #### [facility] [address] [place], [address] Urea nitrogen [Mass/Vol] 9 mg/dL Normal 4-[address] [facility] Comment on above: Performed By: #### L 500.2900, L100.0200 #### [facility] [address] [place], [address] Emergency Department Summary on 12-08-2024 Emergency Department Summary [facility] Medical Records Department [address] [place] [address] Emergency Department Summary 12/08/24 MR#: [id number] Acct: [id number] Name: FRIDA WIN Rep #: [id number] : 1980 44 From: Deonte Beckett DO PCP: FILIBERTO Cooper Status:REG ER Location: ED HPI History of Present Illness Chief Complaint: Dizziness Narrative Narrative: Patient is a 44-year-old female with past medical history of anemia, vitamin D deficiency, hidradenitis suppurativa, headaches who presents to the emergency department with a chief complaint of lightheadedness and not feeling well. States that she got to work this morning and that while standing discussing with staff she states that she became very lightheaded and felt like she may pass out she states that she has not had anything happen like this before. In the triage note states that she had dizzy when inquiring about this she states that she was not dizzy things were not spinning around she was not spinning around she felt very lightheaded and felt like she was developing tunnel vision. Patient states that she did get nauseous and vomited. Patient states that she drink plenty of fluids through the weekend which she states is unusual for her. Denies any sick contacts. Denies any recent travels denies any history of blood clots. Patient states that she does have a mild headache but notes that this is not unusual for her. [facility] Medical History Encounter for Essure implantation Hidradenitis suppurativa Vitamin D deficiency Anemia URI (upper respiratory infection) Home Medications ???Medication ???Instructions ???Recorded ???Last Taken ???Type lamotrigine 100 mg tablet 100 mg PO QDAY 09/16/24 Unknown Hi story lisdexamfetamine 40 mg capsule 40 mg PO QDAY 09/16/24 Unknown His tory (Vyvanse) pantoprazole 40 mg tablet,delayed 40 mg PO QDAY 09/16/24 Unknown Hi story release rimegepant 75 mg disintegrating 75 mg PO ONCE PRN 09/16/24 Unknown History tablet (Nurtec ODT) sertraline 100 mg tablet (Zoloft) 100 mg PO QDAY 09/16/24 Unknown H istory topiramate 25 mg sprinkle capsule PO 09/16/24 Unknown History Allergy/AdvReac Type Severity Reaction Status Date / Time amoxicillin (From Augmentin) Allergy Shortness Verified 12/08/24 07:13 of breath clavulanic acid (From Allergy Shortness Verified 12/08/24 07:13 Augmentin) of breath Family History Mother Anemia Anxiety Rheumatoid arthritis Depression Hypertension Hormone imbalance Mental disorder Osteoporosis Brother Asthma Grandmother Arthritis Sister Factor 5 Leiden mutation, heterozygous Depression Aunt Cervical cancer Father Diabetes Hypertension Grandmother Parkinson disease Surgical History H/O: hysterectomy Social History adopted: No number of children: 3 current occupational status: employed 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 sexually active: Yes Smoking Status: Light Smoker (<10/day) alcohol intake: current alcohol intake frequency: holidays/special occasions only substance use type: does not use what type of physical activity do you participate in: walking seatbelt use: always do you feel safe at home: Yes additional social history: [place]- Boyfriend ROS ROS ED ROS Narrative Constitutional: Complains of lightheadedness as noted above and headache denies fever, chills, dizziness Eyes: Denies change in vision double vision blurry vision Cardiovascular: Denies chest pain Respiratory: Denies coughing wheezing shortness of breath Abdomen: Complains of nausea vomiting as noted above denies abdominal pain : Denies urinary symptoms Neurological: Denies numbness, weakness, tingling Musculoskeletal: Denies back pain Skin: Denies any rashes or lesions EXAM Physical Exam Narrative Exam Narrative: General: Patient was lying in bed rest comfortably did not appear to be acute distress Head: Atraumatic, normocephalic Eyes: PERRL bilaterally, EOMI bilateral, no conjunctival injection noted Neck: Soft, supple, trachea midline Cardiovascular: Regular rate and rhythm no murmurs gallops rubs noted Respiratory: Clear to auscultation bilaterally no rales rhonchi or wheezes noted Abdomen: Soft, nondistended, nontender to palpation Extremities: +5/5 strength noted in the bilateral upper and lower extremities, radial pulses +2/4 in the bilateral extremities, no pedal edema on exam Neurological: Patient follow commands knew that she was at [facility] the year is 2024. NIH is 0 GCS 15 patient completed finger-nose testing bilaterally without any difficulty Skin: Warm (more content not included)... Normal [facility] Eosinophil percentageOrdered By: Deonte Beckett on 12-08-2024 Eosinophils/100 WBC (Bld) 1.1 % 0-[address] [facility] Erythrocyte distribution wid th ratioOrdered By: Deonte Beckett on 12-08-2024 Erythrocyte distribution width (RBC) [Ratio] 14.6 % 11.6-14.[address] [facility] Erythrocyte distribution wid th standard deviationOrdered By: Deonte Beckett on 12-08-2024 Erythrocyte distribution width (RBC) [Ratio] 42.7 fl 35.1-43.[address] [facility] Free T3on 12-08-2024 Free T3 [Mass/Vol] 3.3 pg/mL Normal 2.18-3.98 [facility] Comment on above: Performed By: #### L 500.2900, L100.0200 #### [facility] Laboratory [facility] [address] [facility] [place], [place], [id number] Free [id number] By: Deonte choudhary on 12-08-2024 Free T3 [Mass/Vol] 3.3 pg/mL 2.18-3.98 [facility] Glomerular filtration rate ( GFR) estimation/1.73 sq m using serum, plasma, or whole bOrdered By: Deonte Beckett on 12-08-2024 GFR/1.73 sq M.predicted among non-blacks MDRD (S/P/Bld) [Vol rate/Area] 111 mL/min/{1.73_m2} >[address] [facility] Comment on above: mL/min/1.73m2 CKD-EP I Creatinine Equation (2020) Hematocrit Auto (Bld) [Volum e fraction]Ordered By: Deonte Beckett on 12-08-2024 Hematocrit (Bld) [Volume fraction] 44.9 % 37-[address] [facility] Hemoglobin measurementOrdere d By: Deonte Beckett on 12-08-2024 Hemoglobin (Bld) [Mass/Vol] 14.4 g/dL 12.0-15.[address] [facility] Immature granulocytes/100 WB C Auto (Bld)Ordered By: Deonte Beckett on 12-08-2024 Immature granulocytes/100 WBC (Bld) 0.500 % 0.0-0.[address] [facility] Comment on above: IG% - Immature Granu locytes (promyelocytes, myelocytes and metamyelocytes) > 1% indicates that a LEFT SHIFT is Present. L499.0042on 12-08-2024 Trop T High Sen < 6 Normal <=[address] [facility] Comment on above: Performed By: #### L 500.2900, L100.0200 #### [facility] Laboratory [address] [place], [address] L499.0043on 12-08-2024 Trop T High Sen Normal <=[address] [facility] Comment on above: Result Comment: Canc elled via OM: Order cancelled - Patient discharged Performed By: #### L 500.2900, L100.0200 #### [facility] [address] [place], [address] Laboratory - Chemistry and C hemistry - challengeOrdered By: Deonte Beckett on 12-08-2024 AST [Catalytic activity/Vol] 19 U/L <[address] [facility] Comment on above: Hemolysis present, R esults could be affected. Lipaseon 12-08-2024 Lipase [Catalytic activity/Vol] 15 U/L Normal 13-[address] [facility] Comment on above: Result Comment: Plea se note: LIPASE revised reference range effective 22. New Lipase methodology. Expected to produce lower values than the previous assay method. NEW Reference Range: 13 - 75 U/L Performed By: #### L 500.2900, L100.0200 #### [facility] [place], [address] Lipase measurementOrdered By : Deonte Beckett on 12-08-2024 Lipase [Catalytic activity/Vol] 15 U/L 13-[address] [facility] Comment on above: Please note:LIPASE r evised reference range effective 22. New Lipase methodology. Expected to produce lower values than the previous assay method. NEW Reference Range: 13 - 75 U/L MCV (mean corpuscular volume ) determinationOrdered By: Deonte Beckett on 12-08-2024 MCV (RBC) [Entitic vol] 80.8 fL Low 81-99 [facility] Mean corpuscular hemoglobin (MCH) determinationOrdered By: Deonte Beckett on 12-08-2024 MCH (RBC) [Entitic mass] 25.9 pg Low 27.0-32.[address] [facility] Mean corpuscular hemoglobin concentration (MCHC) determinationOrdered By: Deonte Beckett on 12-08-2024 MCHC (RBC) [Mass/Vol] 32.1 g/dL 32-36 [facility] Mean platelet volume determi nationOrdered By: Deonte Beckett on 12-08-2024 Platelet mean volume (Bld) [Entitic vol] 9.5 fL 6.2-12.[address] [facility] Monocyte percentageOrdered B y: Deonte Beckett on 12-08-2024 Monocytes/100 WBC (Bld) 4.0 % 0-10 [facility] Neutrophil percentageOrdered By: Deonte Beckett on 12-08-2024 Neutrophils/100 WBC (Bld) 76.0 % High 47-[address] [facility] Nucleated red blood cell per centageOrdered By: Deonte Beckett on 12-08-2024 Nucleated RBC/100 WBC (Bld) [Ratio] 0 % 0-[address] [facility] Platelet countOrdered By: Cipriano Beckett on 12-08-2024 Platelets (Bld) [#/Vol] 367 10*3/uL 150-[address] [facility] Potassium measurement (mass/ volume)Ordered By: Deonte Beckett on 12-08-2024 Potassium (Unsp spec) [Mass/Vol] 4.5 mmol/L 3.3-5.[address] [facility] Comment on above: Hemolysis present, R esults could be affected. ,Serum,hCG Quali.on 12-08-2024 HCG, SERUM QUAL Negative Normal [facility] Comment on above: Performed By: #### L 500.2900, L100.0200 #### [facility] [address] [place], [address] RBC Auto (Bld) [#/Vol]Ordere d By: Deonte Beckett on 12-08-2024 RBC (Bld) [#/Vol] 5.56 10*6/uL High 4.2-5.4 [facility] Serum beta-hCG test, qualita tiveOrdered By: Deonte Beckett on 12-08-2024 Beta HCG ( test) Ql Negative [facility] Serum creatinine measurement (mass/volume)Ordered By: Deonte Beckett on 12-08-2024 Creatinine [Mass/Vol] 0.68 mg/dL Low 0.70-1.20 [facility] Serum globulin measurementOr dered By: Deonte Beckett on 12-08-2024 Globulin (S) [Mass/Vol] 3.4 g/dL 2.2-4.2 [facility] Serum glucose measurement (m ass/volume)Ordered By: Deonte Beckett on 12-08-2024 Glucose [Mass/Vol] 118 mg/dL High 70-99 [facility] Serum or plasma alanine zavala otransferase (ALT) measurementOrdered By: Deonte Beckett on 12-08-2024 ALT [Catalytic activity/Vol] 13 U/L <[address] [facility] Serum or plasma albumin emanuel urement (mass/volume)Ordered By: Deonte Beckett on 12-08-2024 Albumin [Mass/Vol] 4.0 g/dL 3.5-5.0 [facility] Serum or plasma albumin/glob ulin mass ratioOrdered By: Deonte Beckett on 12-08-2024 Albumin/Globulin [Mass ratio] 1.2 {ratio} 0.9-2.[address] [facility] Serum or plasma alkaline treva sphatase measurementOrdered By: Deonte Beckett on 12-08-2024 ALP [Catalytic activity/Vol] 81 U/L 35-[address] [facility] Serum or plasma calcium emanuel urement (mass/volume)Ordered By: Deonte Beckett on 12-08-2024 Calcium [Mass/Vol] 9.1 mg/dL 7.6-11.0 [facility] Serum or plasma urea nitroge n measurement (mass/volume)Ordered By: Deonte Beckett on 12-08-2024 Urea nitrogen [Mass/Vol] 9 mg/dL 4-[address] [facility] Sodium levelOrdered By: John Beckett on 12-08-2024 Sodium [Moles/Vol] 135 mmol/L 133-145 [facility] T4 Free Directon 12-08-2024 T4 FREE DIRECT 1.10 ng/dL Normal 0.76-1.[address] [facility] Comment on above: Performed By: #### L 500.2900, L100.0200 #### [facility] [address] [facility] [place], [address] T4 freeOrdered By: Deonte choudhary on 12-08-2024 Free T4 [Mass/Vol] 1.10 ng/dL 0.76-1.46 [facility] TSH DL <= 0.005 mIU/L QnOrde red By: Deonte Beckett on 12-08-2024 TSH Qn 0.674 uIU/mL 0.300-4.[address] [facility] Thyroid Stim Hormone (TSH)on 12-08-2024 TSH 0.674 uIU/mL Normal 0.300-4.[address] [facility] Comment on above: Performed By: #### L 500.2900, L100.0200 #### [facility] [address] [place], [place], [id number] Total proteinOrdered By: Lisa Beckett on 12-08-2024 Protein [Mass/Vol] 7.4 g/dL 5.9-8.4 [facility] Troponin T.cardiac [Mass/vol ume] in Serum or Plasma by High sensitivity methodOrdered By: Deonte Beckett on 12-08-2024 Troponin T.cardiac High sensitivity method [Mass/Vol] < 6 ng/L <[address] [facility] White blood cell (WBC) count Ordered By: Deonte Beckett on 12-08-2024 WBC (Bld) [#/Vol] 9.8 10*3/uL 4.4-11.0 [facility] Catechist Office Visit Reporton 10-14-2024 Catechist Office Visit Report [facility]'[address], [address] [place] [address] OFFICE VISIT Date of Service: 10/14/24 MR#: [id number] Acct: [id number] Name: FRIDA WIN Rep #: [id number] : 1980 Provider: FILIBERTO Anguiano Age/Sex: 44/F Location: [facility] Status: Signed Intake Vital Signs 08/06/23 09:24 10/14/24 15:07 Height 5 ft 3 in 5 ft 3 in Weight: 247 lb BMI 43.7 BP 137/81 H Intake Visit 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) * [employer]* 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 Required: No Is patient in pain?: No Allergies amoxicillin (From Augmentin) Allergy (Verified 10/14/24 15:09) Shortness of breath clavulanic acid (From Augmentin) Allergy (Verified 10/14/24 15:09) Shortness of breath Medications ???Medication ???Instructions ???Recorded ???Confirmed ???Type lamotrigine 100 mg tablet 100 mg PO QDAY 09/16/24 10/14/24 H istory lisdexamfetamine 40 mg capsule 40 mg PO QDAY 09/16/24 10/14/24 Hi story (Vyvanse) pantoprazole 40 mg tablet,delayed 40 mg PO QDAY 09/16/24 10/14/24 H istory release rimegepant 75 mg disintegrating 75 mg PO ONCE PRN 09/16/24 5 History tablet (Nurtec ODT) sertraline 100 mg tablet (Zoloft) 100 mg PO QDAY 09/16/24 10/14/24 History topiramate 25 mg sprinkle capsule PO 09/16/24 10/14/24 History Is last menstrual period known: No Post menopausal: No Patient : No : No Control Method: hyst 2009 [facility] Medical History (Updated 10/14/24 @ 15:28 by FILIBERTO Bradshaw) Encounter for Essure implantation Hidradenitis suppurativa Vitamin D deficiency Anemia URI (upper respiratory infection) Surgical History (Updated 10/14/24 @ 15:19 by Alba Seth) H/O: hysterectomy Family History Mother Anemia Anxiety Rheumatoid arthritis Depression Hypertension Hormone imbalance Mental disorder Osteoporosis Brother Asthma Grandmother Arthritis Sister Factor 5 Leiden mutation, heterozygous Depression Aunt Cervical cancer Father Diabetes Hypertension Grandmother Parkinson disease Social History adopted: No number of children: 3 current occupational status: employed 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 History of hysterectomy-pathology negative per her report however we do not have records for review. She reports she recently had what felt like a bartholin cyst; she has used warm compress and feels this has resolved. She reports no other issues or concerns. Last PAP: hyst. History of abnormal PAP: yes; precancerous cells. Prior to hyst. Last mammogram: 03/2024 History of abnormal mammogram: cyst on ultrasound right. Colon cancer screening: none Other preventative health care screenings: Mela Walker. Female Reproductive History Questions: metorrhagia: No, sexually active: Yes (hyst), dyspareunia: No and PCB: No ROS Const Constitutional: Denies chills, fatigue, fever(s), headache(s) or weight loss Eyes Eyes: Denies change in vision ENT ENT: Denies dizziness Resp Resp: Denies cough GI GI: Denies abdominal pain, constipation or nausea : Denies difficulty voiding, dysuria, hematuria, nipple discharge, pelvic pain, prolapse symptoms, urinary incontinence, vaginal discharge, vaginal dryness, vaginal odor or vaginal pruritus Skin Skin/Breast: Denies alopecia, rash, breast mass, breast pain, breast skin changes or nipple discharge Neuro Neuro: Denies dizziness Psych Psych: Denies anxiety or depression Endo Endo: Denies cold intolerance, excessive sweating or heat intolerance Exam Const General: cooperative, healthy appearing, comfortable, no acute distress, well groomed and well hydrated Nutritional Appearance: well nourished Orientation: alert, awake and oriented x3 HENMT (more content not included)... Normal [facility] S-I Jts 3 or More Viewson S-I Jts 3 or More Views [facility] Imaging Services [address] [place], [place] [id number] S-I Jts 3 or More Views MR#: [id number] Acct: [id number] Name: FRIDA WIN Rep #: [id number] : 1980 F 43 From: Erickson Silvestre PCP: RYAN CooperC Status: REG CLI Study: S-I Jts 3 or More Views Date of Exam: 07/30/24 Exam# [id number] Ordering Dr: Mela Walker [employer]ER[employer] ENGINEERInaC PROCEDURE: S-I JTS 3 OR MORE VIEWS REASON FOR EXAM: Chronic sacroiliac joint pain. TECHNIQUE: Three-view sacroiliac joint series) COMPARISON: None available. RAD/S-I Jts 3 or More Views IMPRESSION: Degenerative changes are seen of the visualized lower lumbar spine. Bilateral Essure devices are seen over the pelvis. Minimal right sacroiliac joint degenerative changes are noted. No erosive process or joint narrowing is seen. No sclerotic reaction is noted. No fracture or dislocation is evident. Reading Location: [address] CC: FILIBERTO Walker Associate Doctor: Signed Normal [facility] CBC W/Diff, Automatedon 02-0 Absolute Lymph 2.29 X10 3/uL Normal 0.83-4.[address] [facility] Comment on above: Performed By: #### L 503.0105, L500.4100, L503.6550, L501.9985, L501.9520, L503.6030, L500.4050, L100.0100, L506.0250, L506.0400, L506.1000 #### [facility] [address] [place], [place], [id number] (748) Absolute Neut 6.0 X10 3/uL Normal 2.0-7.[address] [facility] Comment on above: Performed By: #### L 503.0105, L500.4100, L503.6550, L501.9985, L501.9520, L503.6030, L500.4050, L100.0100, L506.0250, L506.0400, L506.1000 #### [facility] [address] [place], [place], [id number] ([address] Basophils/100 WBC (Bld) 0.9 % Normal 0-1 [facility] Comment on above: Performed By: #### L 503.0105, L500.4100, L503.6550, L501.9985, L501.9520, L503.6030, L500.4050, L100.0100, L506.0250, L506.0400, L506.1000 #### [facility] [address] [place], [place], [id number] ([address] Eosinophils/100 WBC (Bld) 1.2 % Normal 0-[address] [facility] Comment on above: Performed By: #### L 503.0105, L500.4100, L503.6550, L501.9985, L501.9520, L503.6030, L500.4050, L100.0100, L506.0250, L506.0400, L506.1000 #### [facility] [address] [place], [address] Erythrocyte distribution width (RBC) [Ratio] 15.3 % High 11.6-14.[address] [facility] Comment on above: Performed By: #### L 503.0105, L500.4100, L503.6550, L501.9985, L501.9520, L503.6030, L500.4050, L100.0100, L506.0250, L506.0400, L506.1000 #### [facility] [address] [place], [address] Hematocrit (Bld) [Volume fraction] 43.4 % Normal 37-[address] [facility] Comment on above: Performed By: #### L 503.0105, L500.4100, L503.6550, L501.9985, L501.9520, L503.6030, L500.4050, L100.0100, L506.0250, L506.0400, L506.1000 #### [facility] [address] [place], [address] Hemoglobin (Bld) [Mass/Vol] 14.0 g/dL Normal 12.0-15.[address] [facility] Comment on above: Performed By: #### L 503.0105, L500.4100, L503.6550, L501.9985, L501.9520, L503.6030, L500.4050, L100.0100, L506.0250, L506.0400, L506.1000 #### [facility] [address] [place], [address] IG% 0.600 Normal 0.0-0.[address] [facility] Comment on above: Result Comment: IG% - Immature Granulocytes (promyelocytes, myelocytes and metamyelocytes) > 1% indicates that a LEFT SHIFT is Present. Performed By: #### L 503.0105, L500.4100, L503.6550, L501.9985, L501.9520, L503.6030, L500.4050, L100.0100, L506.0250, L506.0400, L506.1000 #### [facility] [address] [place], [address] Lymphocytes/100 WBC (Bld) 25.7 % Normal 19-[address] [facility] Comment on above: Performed By: #### L 503.0105, L500.4100, L503.6550, L501.9985, L501.9520, L503.6030, L500.4050, L100.0100, L506.0250, L506.0400, L506.1000 #### [facility] [address] [place], [address] MCH (RBC) [Entitic mass] 25.7 pg Low 27.0-32.[address] [facility] Comment on above: Performed By: #### L 503.0105, L500.4100, L503.6550, L501.9985, L501.9520, L503.6030, L500.4050, L100.0100, L506.0250, L506.0400, L506.1000 #### [facility] [address] [place], [address] MCHC (RBC) [Mass/Vol] 32.3 g/dL Normal 32-36 [facility] Comment on above: Performed By: #### L 503.0105, L500.4100, L503.6550, L501.9985, L501.9520, L503.6030, L500.4050, L100.0100, L506.0250, L506.0400, L506.1000 #### [facility] [address] [place], [address] MCV (RBC) [Entitic vol] 79.6 fL Low 81-99 [facility] Comment on above: Performed By: #### L 503.0105, L500.4100, L503.6550, L501.9985, L501.9520, L503.6030, L500.4050, L100.0100, L506.0250, L506.0400, L506.1000 #### [facility] [address] [place], [address] Monocytes/100 WBC (Bld) 4.4 % Normal 0-10 [facility] Comment on above: Performed By: #### L 503.0105, L500.4100, L503.6550, L501.9985, L501.9520, L503.6030, L500.4050, L100.0100, L506.0250, L506.0400, L506.1000 #### [facility] [address] [facility] [place], [address] Neutrophils/100 WBC (Bld) 67.2 % Normal 47-[address] [facility] Comment on above: Performed By: #### L 503.0105, L500.4100, L503.6550, L501.9985, L501.9520, L503.6030, L500.4050, L100.0100, L506.0250, L506.0400, L506.1000 #### [facility] [address] [place], [address] Nucleated RBC (Bld) [#/Vol] 0 10*3/uL Normal 0-[address] [facility] Comment on above: Performed By: #### L 503.0105, L500.4100, L503.6550, L501.9985, L501.9520, L503.6030, L500.4050, L100.0100, L506.0250, L506.0400, L506.1000 #### [facility] [address] [place], [address] Platelet mean volume (Bld) [Entitic vol] 9.4 fL Normal 6.2-12.[address] [facility] Comment on above: Performed By: #### L 503.0105, L500.4100, L503.6550, L501.9985, L501.9520, L503.6030, L500.4050, L100.0100, L506.0250, L506.0400, L506.1000 #### [facility] [address] [place], [address] Platelets (Bld) [#/Vol] 398 10*3/uL Normal 150-[address] [facility] Comment on above: Performed By: #### L 503.0105, L500.4100, L503.6550, L501.9985, L501.9520, L503.6030, L500.4050, L100.0100, L506.0250, L506.0400, L506.1000 #### [facility] [address] [place], [address] RBC (Bld) [#/Vol] 5.45 10*6/uL High 4.2-5.4 [facility] Comment on above: Performed By: #### L 503.0105, L500.4100, L503.6550, L501.9985, L501.9520, L503.6030, L500.4050, L100.0100, L506.0250, L506.0400, L506.1000 #### [facility] [address] [place], [address] RDW SD 43.7 fl Normal 35.1-43.[address] [facility] Comment on above: Performed By: #### L 503.0105, L500.4100, L503.6550, L501.9985, L501.9520, L503.6030, L500.4050, L100.0100, L506.0250, L506.0400, L506.1000 #### [facility] [address] [place], [place], [address] WBC (Bld) [#/Vol] 8.9 10*3/uL Normal 4.4-11.0 [facility] Comment on above: Performed By: #### L 503.0105, L500.4100, L503.6550, L501.9985, L501.9520, L503.6030, L500.4050, L100.0100, L506.0250, L506.0400, L506.1000 #### [facility] [address] [place], [place], [id number] Comprehensive Metabolic Prof ilon 07-22-2024 Albumin [Mass/Vol] 3.5 g/dL Normal 3.2-5.0 [facility] Comment on above: Performed By: #### L 503.0105, L500.4100, L503.6550, L501.9985, L501.9520, L503.6030, L500.4050, L100.0100, L506.0250, L506.0400, L506.1000 #### [facility] [address] [place], [place], [address] Albumin/Globulin [Mass ratio] 0.8 {ratio} Low 0.9-2.[address] [facility] Comment on above: Performed By: #### L 503.0105, L500.4100, L503.6550, L501.9985, L501.9520, L503.6030, L500.4050, L100.0100, L506.0250, L506.0400, L506.1000 #### [facility] [address] [place], [place], [id number] ALK P 82 U/L Normal 45-[address] [facility] Comment on above: Performed By: #### L 503.0105, L500.4100, L503.6550, L501.9985, L501.9520, L503.6030, L500.4050, L100.0100, L506.0250, L506.0400, L506.1000 #### [facility] [address] [facility] [place], [address] ALT [Catalytic activity/Vol] 20 U/L Normal 13-[address] [facility] Comment on above: Performed By: #### L 503.0105, L500.4100, L503.6550, L501.9985, L501.9520, L503.6030, L500.4050, L100.0100, L506.0250, L506.0400, L506.1000 #### [facility] [address] [facility] [place], [place], [id number] AST [Catalytic activity/Vol] 12 U/L Low 15-[address] [facility] Comment on above: Performed By: #### L 503.0105, L500.4100, L503.6550, L501.9985, L501.9520, L503.6030, L500.4050, L100.0100, L506.0250, L506.0400, L506.1000 #### [facility] [address] [facility] [place], [place], [id number] Bilirubin [Mass/Vol] 0.40 mg/dL Normal 0.20-1.00 [facility] Comment on above: Result Comment: For patients on eltrombopag therapy, use of Dimension [place] TBIL is not recommended. Performed By: #### L 503.0105, L500.4100, L503.6550, L501.9985, L501.9520, L503.6030, L500.4050, L100.0100, L506.0250, L506.0400, L506.1000 #### [facility] [address] [place], [address] BUN/CRE 13.6 RATIO Normal 10-[address] [facility] Comment on above: Performed By: #### L 503.0105, L500.4100, L503.6550, L501.9985, L501.9520, L503.6030, L500.4050, L100.0100, L506.0250, L506.0400, L506.1000 #### [facility] [address] [place], [address] CA,Total 9.6 mg/dL Normal 8.5-10.[address] [facility] Comment on above: Performed By: #### L 503.0105, L500.4100, L503.6550, L501.9985, L501.9520, L503.6030, L500.4050, L100.0100, L506.0250, L506.0400, L506.1000 #### [facility] [address] [place], [address] Chloride [Moles/Vol] 106 mmol/L Normal 98-107 [facility] Comment on above: Performed By: #### L 503.0105, L500.4100, L503.6550, L501.9985, L501.9520, L503.6030, L500.4050, L100.0100, L506.0250, L506.0400, L506.1000 #### [facility] [address] [place], [address] CO2 [Moles/Vol] 27.0 mmol/L Normal 21.0-32.[address] [facility] Comment on above: Performed By: #### L 503.0105, L500.4100, L503.6550, L501.9985, L501.9520, L503.6030, L500.4050, L100.0100, L506.0250, L506.0400, L506.1000 #### [facility] [address] [place], [address] Creatinine [Mass/Vol] 0.73 mg/dL Normal 0.55-1.02 [facility] Comment on above: Result Comment: The validity of the calculated GFR GFRAA in patients over 70 years has not been determined. Clinical correlation is essential. Performed By: #### L 503.0105, L500.4100, L503.6550, L501.9985, L501.9520, L503.6030, L500.4050, L100.0100, L506.0250, L506.0400, L506.1000 #### [facility] [address] [place], [place], [phone] (565) EST GFR - AA 111 mL/min Normal >[address] [facility] Comment on above: Result Comment: Afri can [place] GFR Calc Performed By: #### L 503.0105, L500.4100, L503.6550, L501.9985, L501.9520, L503.6030, L500.4050, L100.0100, L506.0250, L506.0400, L506.1000 #### [facility] [address] [place], [place], [phone] (703) GAP 4 Low 5-[address] [facility] Comment on above: Performed By: #### L 503.0105, L500.4100, L503.6550, L501.9985, L501.9520, L503.6030, L500.4050, L100.0100, L506.0250, L506.0400, L506.1000 #### [facility] [address] [place], [address] (018) GFR/1.73 sq M.predicted among non-blacks MDRD (S/P/Bld) [Vol rate/Area] 92 mL/min/{1.73_m2} Normal >[address] [facility] Comment on above: Result Comment: Non- GFR Calc Performed By: #### L 503.0105, L500.4100, L503.6550, L501.9985, L501.9520, L503.6030, L500.4050, L100.0100, L506.0250, L506.0400, L506.1000 #### [facility] [address] [place], [address] Globulin (S) [Mass/Vol] 4.2 g/dL Normal 2.2-4.2 [facility] Comment on above: Performed By: #### L 503.0105, L500.4100, L503.6550, L501.9985, L501.9520, L503.6030, L500.4050, L100.0100, L506.0250, L506.0400, L506.1000 #### [facility] [address] [place], [place], [phone] (864) Glucose [Mass/Vol] 96 mg/dL Normal 74-106 [facility] Comment on above: Performed By: #### L 503.0105, L500.4100, L503.6550, L501.9985, L501.9520, L503.6030, L500.4050, L100.0100, L506.0250, L506.0400, L506.1000 #### [facility] [address] [place], [place], [phone] (292) Potassium [Moles/Vol] 4.4 mmol/L Normal 3.5-5.1 [facility] Comment on above: Performed By: #### L 503.0105, L500.4100, L503.6550, L501.9985, L501.9520, L503.6030, L500.4050, L100.0100, L506.0250, L506.0400, L506.1000 #### [facility] [address] [place], [place], [phone] (920) Sodium [Moles/Vol] 137 mmol/L Normal 136-145 [facility] Comment on above: Performed By: #### L 503.0105, L500.4100, L503.6550, L501.9985, L501.9520, L503.6030, L500.4050, L100.0100, L506.0250, L506.0400, L506.1000 #### [facility] [address] [facility] [place], [address] T PROT 7.7 g/dL Normal 6.4-8.[address] [facility] Comment on above: Performed By: #### L 503.0105, L500.4100, L503.6550, L501.9985, L501.9520, L503.6030, L500.4050, L100.0100, L506.0250, L506.0400, L506.1000 #### [facility] [address] [facility] [place], [place], [phone] Urea nitrogen [Mass/Vol] 10 mg/dL Normal 7-[address] [facility] Comment on above: Performed By: #### L 503.0105, L500.4100, L503.6550, L501.9985, L501.9520, L503.6030, L500.4050, L100.0100, L506.0250, L506.0400, L506.1000 #### [facility] [address] [facility] [place], [place], [phone] Ferritinon 07-22-2024 Ferritin [Mass/Vol] 198 ng/mL Normal 8-252 [facility] Comment on above: Performed By: #### L 503.0105, L500.4100, L503.6550, L501.9985, L501.9520, L503.6030, L500.4050, L100.0100, L506.0250, L506.0400, L506.1000 #### [facility] [address] [facility] [place], [address] Folates, (Folic Acid)on FOLATES 6.80 ng/mL Normal 3.1-55.[address] [facility] Comment on above: Order Comment: N Performed By: #### L 500.2900, L100.0200 #### [facility] [address] [place], [address] Hemoglobin A1con 07-22-2024 HbA1c (Bld) [Mass fraction] 5.5 % Normal 3.8-5.[address] [facility] Comment on above: Result Comment: Norm al < 5.7 % Prediabetic 5.7 - 6.4 % Diabetic >or= 6.5 % Please note range changes. Performed By: #### L 500.2900, L100.0200 #### [facility] [address] [place], [address] Iron+Iron Binding Capacityon 07-22-2024 Iron [Mass/Vol] 45 ug/dL Low 50-[address] [facility] Comment on above: Performed By: #### L 503.0105, L500.4100, L503.6550, L501.9985, L501.9520, L503.6030, L500.4050, L100.0100, L506.0250, L506.0400, L506.1000 #### [facility] [address] [place], [address] IRON SATURATION 18.9 Normal 15.0-55.[address] [facility] Comment on above: Performed By: #### L 503.0105, L500.4100, L503.6550, L501.9985, L501.9520, L503.6030, L500.4050, L100.0100, L506.0250, L506.0400, L506.1000 #### [facility] [address] [place], [address] TIBC 238 ug/dL Low 250-[address] [facility] Comment on above: Performed By: #### L 503.0105, L500.4100, L503.6550, L501.9985, L501.9520, L503.6030, L500.4050, L100.0100, L506.0250, L506.0400, L506.1000 #### [facility] [address] [place], [address] Lipid Profileon 07-22-2024 Cholesterol [Mass/Vol] 167 mg/dL Normal 200 [facility] Comment on above: Result Comment: <200 mg/dL Desirable 200-240 mg/dL Borderline >240 mg/dL High Risk Performed By: #### L 503.0105, L500.4100, L503.6550, L501.9985, L501.9520, L503.6030, L500.4050, L100.0100, L506.0250, L506.0400, L506.1000 #### [facility] [address] [place], [address] Cholesterol in HDL [Mass/Vol] 56 mg/dL Normal [facility] Comment on above: Result Comment: The drugs N-Acetylcysteine and Metamizole may falsely depress this assay. Reference Range HDL <40 mg/dL Low HDL Cholesterol HDL >or= 60 mg/dL High HDL Cholesterol Performed By: #### L 503.0105, L500.4100, L503.6550, L501.9985, L501.9520, L503.6030, L500.4050, L100.0100, L506.0250, L506.0400, L506.1000 #### [facility] [address] [place], [address] Cholesterol in LDL [Mass/Vol] 95 mg/dL Normal 0-[address] [facility] Comment on above: Performed By: #### L 503.0105, L500.4100, L503.6550, L501.9985, L501.9520, L503.6030, L500.4050, L100.0100, L506.0250, L506.0400, L506.1000 #### [facility] [address] [place], [place], [id number] Cholesterol in VLDL [Mass/Vol] 16 mg/dL Normal 5-[address] [facility] Comment on above: Performed By: #### L 503.0105, L500.4100, L503.6550, L501.9985, L501.9520, L503.6030, L500.4050, L100.0100, L506.0250, L506.0400, L506.1000 #### [facility] [address] [place], [address] Triglyceride [Mass/Vol] 82 mg/dL Normal [facility] Comment on above: Result Comment: The drugs N-Acetylcysteine and Metamizole may falsely depress this assay. Serum Triglycerides Reference Interval Normal <150 mg/dL Borderline high 150 - 199 mg/dL High 200 - 499 mg/dL Very High > or = 500 mg/dL Performed By: #### L 503.0105, L500.4100, L503.6550, L501.9985, L501.9520, L503.6030, L500.4050, L100.0100, L506.0250, L506.0400, L506.1000 #### [facility] [address] [place], [place], [id number] T4 Free Directon 07-22-2024 T4 FREE DIRECT 1.03 ng/dL Normal 0.76-1.[address] [facility] Comment on above: Order Comment: N Performed By: #### L 503.0105, L500.4100, L503.6550, L501.9985, L501.9520, L503.6030, L500.4050, L100.0100, L506.0250, L506.0400, L506.1000 #### [facility] [address] [place], [place], [id number] Thyroid Stim Hormone (TSH)on 07-22-2024 TSH 1.460 uIU/mL Normal 0.358-3.[address] [facility] Comment on above: Performed By: #### L 503.0105, L500.4100, L503.6550, L501.9985, L501.9520, L503.6030, L500.4050, L100.0100, L506.0250, L506.0400, L506.1000 #### [facility] [address] [place], [address] Vitamin B12on 07-22-2024 Cobalamin (Vitamin B12) [Mass/Vol] 893 pg/mL Normal 211-[address] [facility] Comment on above: Performed By: #### L 500.2900, L100.0200 #### [facility] [address] [place], [address] Vitamin D,25 Hydroxyon 07-22 Vitamin D 25-OH 31.7 ng/mL Normal [facility] Comment on above: Result Comment: Merari min D 25(OH) Status Range Deficiency <20 ng/mL (50nmol/L) Insufficiency 20 - 30 ng/mL (50 - 75 nmol/L) Sufficiency 30 - 100 ng/mL (75 - 250 nmol/L) Toxicity >100 ng/mL (>250 nmol/L) Performed By: #### L 500.2900, L100.0200 #### [facility] [address] [place], [address] Chiropractic Reporton 2023 Chiropractic Report [facility] [address] [place] [address] OFFICE VISIT Date of Service: 05/26/24 MR#: [id number] Acct: [id number] Name: FRIDA WIN Rep #: [id number] : 1980 Provider: SHEYLA Lopez Age/Sex: 43/F Location[facility] Status: Signed Intake Vital Signs 08/06/23 09:24 Height 5 ft 3 in Intake Visit Reasons: Back pain Chief Complaint: Back pain Is patient in pain?: No Allergies amoxicillin (From Augmentin) Allergy (Verified 05/26/24 14:11) Shortness of breath clavulanic acid (From Augmentin) Allergy (Verified 05/26/24 14:11) Shortness of breath Medications ???Medication ???Instructions ???Recorded ???Confirmed ???Type clonidine HCl 0.1 mg tablet 0.1 mg PO DAILY PRN Agitation 07/21/19 05/26/24 History dextroamphetamine-amphe tamine 30 30 mg PO BID 07/21/19 05/26/24 History mg tablet dextroamphetamine-amphe tamine 10 PO 03/22/23 05/26/24 History mg tablet sertraline 100 mg tablet mg PO 03/22/23 05/26/24 History spironolactone 100 mg tablet mg PO 03/22/23 05/26/24 History PFSH Medical History URI (upper respiratory infection) Social History Smoking Status: Current every day smoker HPI Back pain Chief Complaint: upper back/neck pain Visit Number: 2 Details: Frida Win 43 yr old F presents for flare up of upper back and neck pain with intermittent right hip pain. Pt complains of headaches x2 weeks starting at right side base of skull radiating upwards. States relaxed on couch yesterday which resulted in some mild right hip discomfort. Denies any new injury, numbness, tingling, or radiculopathy. 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 Pain Quality: aching and dull Exam Musc General: Yes normal posture, normal gait and joint tenderness; No muscle weakness or decreased range of motion Cervical Spine: Yes cervical muscular tenderness left greater than right upper , bilateral lower , Yes cervical spasm right greater than left diffuse trapezius and paracervical muscles, left upper intrinsics and Yes misalignment misalignment: C1, C6 and C7 Thoracic/Lumber: Yes thoracic and lumbar spine normal to inspection, Yes paraspinal tenderness bilaterally in the upper thoracic and on the right greater than left (lumbopelvic), Yes thoraco- lumbar spasm bilaterally (trap, levator) and on the right greater than left (QL, glute) and Yes misalignment T1, T2, T3, T4, L4, L5 and RIL Sacroiliac joints: on the right tender to palpation Office Procedures Procedures - Chiropractic Procedures Manipulation: Cervical C1 and C6, Lumbar L4, Thoracic T3 and Pelvis RIL Manipulation: 3-4 regions Traction, Mechanical: Yes Patient Response: positive Assessment and Plan Assessment and Plan (1) Segmental and somatic dysfunction of cervical region: Status: Acute (2) Segmental and somatic dysfunction of thoracic region: Status: Acute (3) Segmental and somatic dysfunction of lumbar region: Status: Acute (4) Segmental and somatic dysfunction of pelvic region: Status: Acute (5) Cervicogenic headache: Status: Acute Orders: Orders Chiropractic Treatments Today M99.01 - Segmental and somatic dysfunction of cervical region, M99.02 - Segmental and somatic dysfunction of thoracic region, M99.03 - Segmental and somatic dysfunction of lumbar region, M99.05 - Segmental and somatic dysfunction of pelvic region Plan Patient was treated without incident. She will follow up should pain persist. Plan Details Goals Barriers: Goals Decrease spasm Improve alignment Decrease pain Improve LOPEZ Follow Up: PRN Coding Level of Care Code No Charge Diagnoses Segmental and somatic dysfunction of cervical region M99.01 Segmental and somatic dysfunction of thoracic region M99.02 Segmental and somatic dysfunction of lumbar region M99.03 Segmental and somatic dysfunction of pelvic region M99.05 Cervicogenic headache G44.86 CPT Codes Procedures - Manipulation: 3-4 regions (61995) Procedures - Traction, Mechanical: Yes (23780) 05/26/24 1429 Date Priyanka Wilder Signature: Date (if applicable) CC: [facility] SCRN MAMM (CAD)W/ORTIZ urrutia 03-21-2024 SCRN MAMM (CAD)W/ORTIZ BILAT [facility] Imaging Services [address] [place], [place] [id number] SCRN MAMM (CAD)W/ORTIZ BILAT MR#: [id number] Acct: [id number] Name: FRIDA WIN Rep #: [id number] : 1980 F 43 From: Sherwin torres MD PCP: FILIBERTO Cooper Status: REG CL Study: SCRN MAMM (CAD)W/ORTIZ BILAT Date of Exam: 10/09 Exam# [id number] Ordering Dr: Mela Walker [id number] MAMMOGRAPHY - BILATERAL SCREENING REASON FOR EXAM: Female, 43 years old. Routine annual screening examination. PERTINENT HISTORY: Grandmother with breast cancer. TECHNIQUE: Digital bilateral breast ortiz (3D mammographic acquisition) in the CC and MLO projections. 2-D mediolateral oblique (MLO) and craniocaudad (CC) views of both breasts were obtained. CAD: Full Field Digital Mammography with Computer Added Detection was performed. COMPARISON: Comparison is made with prior study January 23, 2023. FINDINGS: Breast Composition: The breasts are extremely dense, which lowers the sensitivity of mammography. There are no dominant masses or suspicious calcifications. Stable 6.1 mm well-defined nodule in the upper lateral anterior aspect of the left breast. Prior sonogram demonstrated to be a small cyst. No other significant abnormalities are identified. There has been no significant change since the prior study. BI/SCRN MAMM (CAD)W/ORTIZ BILAT IMPRESSION: Stable bilateral screening mammogram. Yearly follow-up mammogram recommended. (A) ASSESSMENT CATEGORY: BIRADS Category 2: Benign. A letter regarding these results will be sent to the patient by the facility within 30 days. Approximately 10% of breast cancers are not detected by mammography. A normal mammogram should not delay biopsy of a clinically suspicious abnormality. [id number] Electronically Signed: Sherwin Johnson MD at 8:38 EDT , CC: FILIBERTO Walker Associate Doctor: Signed Normal [facility] CBC, Employeeon 03-13-2024 Absolute Lymph 2.09 X10 3/uL Normal 0.83-4.[address] [facility] Comment on above: Performed By: #### L 500.2900, L100.0200 #### [facility] [address] [place], [address] Absolute Neut 6.3 X10 3/uL Normal 2.0-7.[address] [facility] Comment on above: Performed By: #### L 500.2900, L100.0200 #### [facility] [address] [place], [address] Basophils/100 WBC (Bld) 1.0 % Normal 0-1 [facility] Comment on above: Performed By: #### L 500.2900, L100.0200 #### [facility] [address] [place], [address] Eosinophils/100 WBC (Bld) 1.5 % Normal 0-[address] [facility] Comment on above: Performed By: #### L 500.2900, L100.0200 #### [facility] [address] [place], [address] Erythrocyte distribution width (RBC) [Ratio] 15.1 % High 11.6-14.[address] [facility] Comment on above: Performed By: #### L 500.2900, L100.0200 #### [facility] [address] [place], [address] Hematocrit (Bld) [Volume fraction] 45.4 % Normal 37-[address] [facility] Comment on above: Performed By: #### L 500.2900, L100.0200 #### [facility] [address] [place], [address] Hemoglobin (Bld) [Mass/Vol] 14.2 g/dL Normal 12.0-15.[address] [facility] Comment on above: Performed By: #### L 500.2900, L100.0200 #### [facility] [address] [place], [address] Lymphocytes/100 WBC (Bld) 22.7 % Normal 19-[address] [facility] Comment on above: Performed By: #### L 500.2900, L100.0200 #### [facility] [address] [place], [address] MCH (RBC) [Entitic mass] 25.3 pg Low 27.0-32.[address] [facility] Comment on above: Performed By: #### L 500.2900, L100.0200 #### [facility] [address] [place], [address] MCHC (RBC) [Mass/Vol] 31.3 g/dL Low 32-36 [facility] Comment on above: Performed By: #### L 500.2900, L100.0200 #### [facility] [address] [place], [address] MCV (RBC) [Entitic vol] 80.9 fL Low 81-99 [facility] Comment on above: Performed By: #### L 500.2900, L100.0200 #### [facility] [address] [place], [address] Monocytes/100 WBC (Bld) 6.1 % Normal 0-10 [facility] Comment on above: Performed By: #### L 500.2900, L100.0200 #### [facility] [address] [place], [address] Neutrophils/100 WBC (Bld) 68.3 % Normal 47-[address] [facility] Comment on above: Performed By: #### L 500.2900, L100.0200 #### [facility] [address] [place], [address] NRBC # 0.00 10 3/uL Normal 0-[address] [facility] Comment on above: Performed By: #### L 500.2900, L100.0200 #### [facility] [address] [place], [address] Nucleated RBC (Bld) [#/Vol] 0 10*3/uL Normal 0-[address] [facility] Comment on above: Performed By: #### L 500.2900, L100.0200 #### [facility] [address] [place], [address] Platelet mean volume (Bld) [Entitic vol] 10.0 fL Normal 6.2-12.[address] [facility] Comment on above: Performed By: #### L 500.2900, L100.0200 #### [facility] [address] [place], [address] Platelets (Bld) [#/Vol] 375 10*3/uL Normal 150-[address] [facility] Comment on above: Performed By: #### L 500.2900, L100.0200 #### [facility] [address] [place], [address] RBC (Bld) [#/Vol] 5.61 10*6/uL High 4.2-5.4 [facility] Comment on above: Performed By: #### L 500.2900, L100.0200 #### [facility] [address] [place], [address] RDW SD 44.7 fl High 35.1-43.[address] [facility] Comment on above: Performed By: #### L 500.2900, L100.0200 #### [facility] [address] [place], [address] WBC (Bld) [#/Vol] 9.2 10*3/uL Normal 4.4-11.0 [facility] Comment on above: Performed By: #### L 500.2900, L100.0200 #### [facility] [address] [facility] [place], [address] DRUGS OF ABUSE SCREEN, URINE on 03-13-2024 AMPHETAMINE SCREEN, URINE Positive Abnormal None Detected [facility] Comment on above: Order Comment: Scree n results should be used for treatment purposes only. Specimen will be kept for 2 weeks, if the sample is adequate. Confirmation testing can be initiated by calling the lab within 2 weeks. Result Comment: Urin e Amphetamine Cutoff: < 1000 ng/mL = None Detected Performed By: #### 4 6965 #### [facility] [address] [address] Julio Olivares M.D. [id number] BARBITURATE SCREEN URINE Not detected Normal None Detected [facility] Comment on above: Order Comment: Scree n results should be used for treatment purposes only. Specimen will be kept for 2 weeks, if the sample is adequate. Confirmation testing can be initiated by calling the lab within 2 weeks. Result Comment: Urin e Barbiturates Cutoff: < 200 ng/mL = None Detected Performed By: #### 4 6965 #### [facility] [address] [place], [place] [address] Julio Olivares M.D. [id number] BENZODIAZEPINE SCREEN, URINE Not detected Normal None Detected [facility] Comment on above: Order Comment: Scree n results should be used for treatment purposes only. Specimen will be kept for 2 weeks, if the sample is adequate. Confirmation testing can be initiated by calling the lab within 2 weeks. Result Comment: Urin e Benzodiazepine Cutoff: < 200 ng/mL = None Detected Performed By: #### 4 6965 #### LAB [address] [place] [address] Julio Olivares M.D. [id number] BUPRENORPHINE, URINE Not detected Normal None Detected [facility] Comment on above: Order Comment: Scree n results should be used for treatment purposes only. Specimen will be kept for 2 weeks, if the sample is adequate. Confirmation testing can be initiated by calling the lab within 2 weeks. Result Comment: Urin e Buprenorphine Cutoff: < 5 ng/mL = None Detected Performed By: #### 4 6965 #### [facility] [address] [place] [address] Julio Olivares M.D. [id number] CANNABINOID SCREEN URINE Not detected Normal None Detected [facility] Comment on above: Order Comment: Scree n results should be used for treatment purposes only. Specimen will be kept for 2 weeks, if the sample is adequate. Confirmation testing can be initiated by calling the lab within 2 weeks. Result Comment: Urin e Cannabinoids Cutoff: < 50 ng/mL = None Detected Performed By: #### 4 6965 #### [facility] [address] [address] Julio Olivares M.D. [id number] COCAINE, SCREEN URINE Not detected Normal None Detected [facility] Comment on above: Order Comment: Scree n results should be used for treatment purposes only. Specimen will be kept for 2 weeks, if the sample is adequate. Confirmation testing can be initiated by calling the lab within 2 weeks. Result Comment: Urin e Cocaine Cutoff: < 300 ng/mL = None Detected Performed By: #### 4 [id number] #### [facility] [address] [address] Julio Olivares M.D. [id number] FENTANYL, URINE Not detected Normal None Detected [facility] Comment on above: Order Comment: Scree n results should be used for treatment purposes only. Specimen will be kept for 2 weeks, if the sample is adequate. Confirmation testing can be initiated by calling the lab within 2 weeks. Result Comment: Urin e Fentanyl Cutoff: < 1 ng/mL = None Detected Performed By: #### 4 [id number] #### [facility] [address] [place], [place] [address] Julio Olivares M.D. [id number] METHADONE SCREEN, URINE Not detected Normal None Detected [facility] Comment on above: Order Comment: Scree n results should be used for treatment purposes only. Specimen will be kept for 2 weeks, if the sample is adequate. Confirmation testing can be initiated by calling the lab within 2 weeks. Result Comment: Urin e Methadone Cutoff: < 300 ng/mL = None Detected Performed By: #### [id number] #### LAB [address] [address] Julio Olivares M.D. [id number] OPIATE SCREEN URINE Not detected Normal None Detected [facility] Comment on above: Order Comment: Scree n results should be used for treatment purposes only. Specimen will be kept for 2 weeks, if the sample is adequate. Confirmation testing can be initiated by calling the lab within 2 weeks. Result Comment: Urin e Opiates Cutoff: < 300 ng/mL = None Detected Performed By: #### [id number] #### LAB [address] [address] Julio Olivares M.D. [id number] OXYCODONE SCREEN, URINE Not detected Normal None Detected [facility] Comment on above: Order Comment: Scree n results should be used for treatment purposes only. Specimen will be kept for 2 weeks, if the sample is adequate. Confirmation testing can be initiated by calling the lab within 2 weeks. Result Comment: Urin e Oxycodone Cutoff: < 100 ng/mL = None Detected Performed By: #### [id number] #### LAB [address] [id number] Julio Olivares M.D. [id number] Drugs of Abuse Screen, Urine Ordered By: Sharyn Patel on 03-13-2024 Amphetamines Ql (U) Positive Abnormal None Detected [facility] Comment on above: Urine Amphetamine Cu toff: < 1000 ng/mL = None Detected Barbiturates Screen Ql (U) Not detected None Detected [facility] Comment on above: Urine Barbiturates C utoff: < 200 ng/mL = None Detected Benzodiazepines Ql (U) Not detected None Detected [facility] Comment on above: Urine Benzodiazepine Cutoff: < 200 ng/mL = None Detected Buprenorphine Ql (U) Not detected None Detected [facility] Comment on above: Urine Buprenorphine Cutoff: < 5 ng/mL = None Detected Cannabinoids Screen Ql (U) Not detected None Detected [facility] Comment on above: Urine Cannabinoids C utoff: < 50 ng/mL = None Detected Cocaine Ql (U) Not detected None Detected [facility] Comment on above: Urine Cocaine Cutoff : < 300 ng/mL = None Detected fentaNYL+Norfentanyl Screen Ql (U) Not detected None Detected [facility] Comment on above: Urine Fentanyl Cutof f: < 1 ng/mL = None Detected Interpretation and review of laboratory results Abnormal [facility] Methadone Screen Ql (U) Not detected None Detected [facility] Comment on above: Urine Methadone Cuto ff: < 300 ng/mL = None Detected Opiates Screen Ql (U) Not detected None Detected [facility] Comment on above: Urine Opiates Cutoff : < 300 ng/mL = None Detected oxyCODONE Ql (U) Not detected None Detected [facility] Comment on above: Urine Oxycodone Cuto ff: < 100 ng/mL = None Detected Screen results shoul d be used for treatment purposes only. Specimen will be kept for 2 weeks, if the sample is adequate. Confirmation testing can be initiated by calling the lab within 2 weeks. [facility] Employee Profileon 4 Albumin [Mass/Vol] 4.0 g/dL Normal 3.2-5.0 [facility] Comment on above: Result Comment: AMENDED REPORT 03/13/241558 ALB previously reported as: 3.6 g/dL Performed By: #### L 500.2900, L100.0200 #### [facility] [address] [place], [place], [id number] Albumin/Globulin [Mass ratio] 1.0 {ratio} Normal 0.9-2.[address] [facility] Comment on above: Result Comment: AMENDED REPORT 03/13/241558 A/G previously reported as: 0.9 RATIO Performed By: #### L 500.2900, L100.0200 #### [facility] [address] [place], [address] ALK P 73 U/L Normal 45-[address] [facility] Comment on above: Result Comment: AMENDED REPORT 03/13/241558 ALK P previously reported as: 89 U/L Performed By: #### L 500.2900, L100.0200 #### [facility] [address] [place], [address] ALT [Catalytic activity/Vol] 20 U/L Normal 13-[address] [facility] Comment on above: Result Comment: AMENDED REPORT 03/13/241558 ALT previously reported as: 21 U/L Performed By: #### L 500.2900, L100.0200 #### [facility] [address] [place], [address] AST [Catalytic activity/Vol] 16 U/L Normal 15-[address] [facility] Comment on above: Result Comment: AMENDED REPORT 03/13/241558 AST previously reported as: 14 L U/L Performed By: #### L 500.2900, L100.0200 #### [facility] [address] [place], [address] Bilirubin [Mass/Vol] 0.40 mg/dL Normal 0.20-1.00 [facility] Comment on above: Result Comment: For patients on eltrombopag therapy, use of Dimension [place] TBIL is not recommended. For patients on eltrombopag therapy, use of Dimension [place] TBIL is not recommended. AMENDED REPORT 03/13/241558 T BILI previously reported as: 0.20 mg/dL For patients on eltrombopag therapy, use of Dimension [place] TBIL is not recommended. Performed By: #### L 500.2900, L100.0200 #### [facility] [address] [place], [address] Bilirubin.direct [Mass/Vol] 0.12 mg/dL Normal 0.00-0.[address] [facility] Comment on above: Result Comment: AMENDED REPORT 03/13/241558 D BILI previously reported as: 0.09 mg/dL Performed By: #### L 500.2900, L100.0200 #### [facility] [address] [place], [address] BUN/CRE 16.9 RATIO Normal 10-[address] [facility] Comment on above: Result Comment: AMENDED REPORT 03/13/241558 BUN/CRE previously reported as: 12.5 RATIO Performed By: #### L 500.2900, L100.0200 #### [facility] [address] [place], [address] CA,Total 9.5 mg/dL Normal 8.5-10.[address] [facility] Comment on above: Result Comment: AMENDED REPORT 03/13/241558 CA previously reported as: 10.8 H mg/dL Performed By: #### L 500.2900, L100.0200 #### [facility] [address] [place], [address] Chloride [Moles/Vol] 104 mmol/L Normal 98-107 [facility] Comment on above: Result Comment: AMENDED REPORT 03/13/241558 CL previously reported as: 105 mmol/L Performed By: #### L 500.2900, L100.0200 #### [facility] [address] [place], [address] CHOL:HDL 3.[address] [facility] Comment on above: Result Comment: AMENDED REPORT 03/13/241558 CHOL:HDL previously reported as: 3.50 Performed By: #### L 500.2900, L100.0200 #### [facility] [address] [place], [address] Cholesterol [Mass/Vol] 202 mg/dL High 200 [facility] Comment on above: Result Comment: <200 mg/dL Desirable 200-240 mg/dL Borderline >240 mg/dL High Risk AMENDED REPORT 03/13/241558 CHOL previously reported as: 170 mg/dL Performed By: #### L 500.2900, L100.0200 #### [facility] [address] [place], [address] Cholesterol in HDL [Mass/Vol] 59 mg/dL Normal [facility] Comment on above: Result Comment: The drugs N-Acetylcysteine and Metamizole may falsely depress this assay. Reference Range HDL <40 mg/dL Low HDL Cholesterol HDL >or= 60 mg/dL High HDL Cholesterol AMENDED REPORT 03/13/241558 HDL previously reported as: 48 mg/dL The drugs N-Acetylcysteine and Metamizole may falsely depress this assay. Performed By: #### L 500.2900, L100.0200 #### [facility] [address] [place], [address] Cholesterol in LDL [Mass/Vol] 110 mg/dL Normal 0-[address] [facility] Comment on above: Result Comment: AMENDED REPORT 03/13/241558 LDL previously reported as: 104 mg/dL Performed By: #### L 500.2900, L100.0200 #### [facility] [address] [place], [address] Cholesterol in VLDL [Mass/Vol] 33 mg/dL Normal 5-[address] [facility] Comment on above: Result Comment: AMENDED REPORT 03/13/241558 VLDL previously reported as: 18 mg/dL Performed By: #### L 500.2900, L100.0200 #### [facility] [address] [place], [address] CO2 [Moles/Vol] 25.0 mmol/L Normal 21.0-32.[address] [facility] Comment on above: Result Comment: AMENDED REPORT 03/13/241558 CO2 previously reported as: 28.0 mmol/L Performed By: #### L 500.2900, L100.0200 #### [facility] [address] [place], [address] Creatinine [Mass/Vol] 0.77 mg/dL Normal 0.55-1.02 [facility] Comment on above: Result Comment: The validity of the calculated GFR GFRAA in patients over 70 years has not been determined. Clinical correlation is essential. The validity of the calculated GFR GFRAA in patients over 70 years has not been determined. Clinical correlation is essential. AMENDED REPORT 03/13/24 4259 CREAT,SERUM previously reported as: 0.96 mg/dL The validity of the calculated GFR GFRAA in patients over 70 years has not been determined. Clinical correlation is essential. Performed By: #### L 500.2900, L100.0200 #### [facility] [address] [place], [address] EST GFR - AA 105 mL/min Normal >[address] [facility] Comment on above: Result Comment: Afri can [place] GFR Calc Performed By: #### L 500.2900, L100.0200 #### [facility] [address] [place], [address] GAP 7 Normal 5-[address] [facility] Comment on above: Result Comment: AMENDED REPORT 03/13/24 5718 GAP previously reported as: 5 Performed By: #### L 500.2900, L100.0200 #### [facility] [address] [place], [address] GFR/1.73 sq M.predicted among non-blacks MDRD (S/P/Bld) [Vol rate/Area] 87 mL/min/{1.73_m2} Normal >[address] [facility] Comment on above: Result Comment: Non- GFR Calc Performed By: #### L 500.2900, L100.0200 #### [facility] [address] [place], [address] Globulin (S) [Mass/Vol] 4.2 g/dL Normal 2.2-4.2 [facility] Comment on above: Result Comment: AMENDED REPORT 03/13/241558 GLOB previously reported as: 4.0 g/dL Performed By: #### L 500.2900, L100.0200 #### [facility] [address] [place], [address] Glucose [Mass/Vol] 130 mg/dL High 74-106 [facility] Comment on above: Result Comment: Fast ing Glucose result greater than or equal to 126 mg/dL suggests DIABETES MELLITUS per A.D.A. criteria. AMENDED REPORT 03/13/241558 GLU previously reported as: 93 mg/dL Performed By: #### L 500.2900, L100.0200 #### [facility] [address] [place], [address] Phosphate [Mass/Vol] 3.1 mg/dL Normal 2.5-4.9 [facility] Comment on above: Result Comment: AMENDED REPORT 03/13/241558 PHOS previously reported as: 4.0 mg/dL Performed By: #### L 500.2900, L100.0200 #### [facility] [address] [place], [address] Potassium [Moles/Vol] 3.8 mmol/L Normal 3.5-5.1 [facility] Comment on above: Result Comment: AMENDED REPORT 03/13/241558 K previously reported as: 4.1 mmol/L Performed By: #### L 500.2900, L100.0200 #### [facility] [address] [place], [address] Sodium [Moles/Vol] 136 mmol/L Normal 136-145 [facility] Comment on above: Result Comment: AMENDED REPORT 03/13/241558 NA previously reported as: 138 mmol/L Performed By: #### L 500.2900, L100.0200 #### [facility] [address] [place], [address] T PROT 8.2 g/dL Normal 6.4-8.[address] [facility] Comment on above: Result Comment: AMENDED REPORT 03/13/241558 T PROT previously reported as: 7.6 g/dL Performed By: #### L 500.2900, L100.0200 #### [facility] [address] [place], [address] Triglyceride [Mass/Vol] 164 mg/dL Normal [facility] Comment on above: Result Comment: The drugs N-Acetylcysteine and Metamizole may falsely depress this assay. Serum Triglycerides Reference Interval Normal <150 mg/dL Borderline high 150 - 199 mg/dL High 200 - 499 mg/dL Very High > or = 500 mg/dL AMENDED REPORT 03/13/241558 TRIG previously reported as: 91 mg/dL The drugs N-Acetylcysteine and Metamizole may falsely depress this assay. Performed By: #### L 500.2900, L100.0200 #### [facility] [address] [place], [address] Urea nitrogen [Mass/Vol] 13 mg/dL Normal 7-[address] [facility] Comment on above: Result Comment: AMENDED REPORT 03/13/241558 BUN previously reported as: 12 mg/dL Performed By: #### L 500.2900, L100.0200 #### [facility] [address] [place], [address] URIC 2.3 mg/dL Low 2.6-6.[address] [facility] Comment on above: Result Comment: The drugs N-Acetylcysteine and Metamizole may falsely depress this assay. AMENDED REPORT 03/13/241558 URIC previously reported as: 4.7 mg/dL The drugs N-Acetylcysteine and Metamizole may falsely depress this assay. Performed By: #### L 500.2900, L100.0200 #### [facility] [address] [place], [address] Office Visit Reporton [address] [facility] [address] [place] [address] OFFICE VISIT Date of Service: 01/23/24 MR#: [id number] Acct: [id number] Patient: FRIDA WIN Rep #: [id number] : 1980 Provider: MARTHA Arnold Age/Sex: 43/F Location: [facility] Status: Signed Employer Purchased Covid Test Note: Patient here today for Covid Testing, requested by their Employer. Assessment and Plan Assessment and Plan Orders: Orders POC Cepheid Covid, FluAB, RSV 01/23/24 Plan Details Goals Barriers: Goals Decrease spasm Improve alignment Decrease pain 01/28/24 0628 Date Kevin THOMAS Cosignfrankie Signature: Date (if applicable) CC: Normal [facility] Office Visit Reporton [address] [facility] [address] [place] [address] OFFICE VISIT Date of Service: 01/23/24 MR#: [id number] Acct: [id number] Patient: FRIDA WIN Rep #: [id number] : 1980 Provider: MARTHA Arnold Age/Sex: 43/F Location[place] [facility] Status: Signed Employer Purchased Covid Test Note: Patient here today for Covid Testing, requested by their Employer. Assessment and Plan Assessment and Plan Orders: Orders POC Cepheid Covid, FluAB, RSV Today Plan Details Goals Barriers: Goals Decrease spasm Improve alignment Decrease pain 01/23/24 0747 Date Kevin THOMAS Cosigner Signature: Date (if applicable) CC: Normal [facility] Urgent Care Visit Reporton 0 01-23-2024 Urgent Care Visit Report [facility] [address], [address] [place] [address] OFFICE VISIT Date of Service: 01/23/24 MR#: [id number] Acct: [id number] Name: FRIDA WIN Rep #: [id number] : 1980 Provider: MARTHA Arnold Age/Sex: 43/F Location: [facility] Status: Signed with Addenda ADDENDUM by MARTHA Arnold on 01/23/24 at 0836 HPI Details: REVISED ASSESSMENT/PLAN ASESSMENT: (1) COVID-19 PLAN: See POC results. Supportive measures as instructed today. Patient declined prescriptions for corticosteroid and cough suppressant upon offering. Patient aware of isolation recommendations and [facility] department notification. Follow-up with PCP in 5 to 7 days should symptoms not improve, ED sooner should symptoms only worsen or any other concerns develop. Patient states acknowledging understanding all the above. This note was generated with [employer]ation software. It may contain incorrect words, spelling, and punctuation that were not noted in checking the note before signing. Assessment and Plan Plan Details Goals Barriers: Goals Decrease spasm Improve alignment Decrease pain 01/23/24 0836 Date Kevin Brand cc: * Signed ADDENDUM by MARTHA Arnold on 01/23/24 at 0830 HPI Details: Assessment/ Plan Assessment: (1) Contact with or exposure to other viral diseases Z20.828 (2) Acute pharyngitis J02.9 Plan: See POC screening (declined POC screening for streptococcal pharyngitis). Supportive measures as instructed today. Follow-up with PCP in 5 to 7 days should symptoms not improve, ED sooner should symptoms only worsen or any other concerns develop. Patient states acknowledging understanding of the above. This note was generated with [employer]ation software. It may contain incorrect words, spelling, and punctuation that were not noted in checking the note before signing. Assessment and Plan Plan Details Goals Barriers: Goals Decrease spasm Improve alignment Decrease pain 01/23/24 0830 Date Kevin Brand cc: * Signed Intake Vital Signs 08/06/23 09:24 Height 5 ft 3 in Intake Visit Reasons: SORE THROAT Chief Complaint: ST Allergies amoxicillin (From Augmentin) Allergy (Verified 01/23/24 06:54) Shortness of breath clavulanic acid (From Augmentin) Allergy (Verified 01/23/24 06:54) Shortness of breath PFSH Social History Smoking Status: Current every day smoker HPI HPI Chief Complaint: ST Details: FRIDA WIN, is a 43 F who presents to the office today for initial evaluation 1 to 2-day history of mild sore throat and nasal congestion, stating employer requested she be screened for COVID-19 therefore here today for initial evaluation. No complaints of fever, chills, sweats, lightheadedness/dizzine ss, nausea/vomiting, chest pain/shortness of breath/dyspnea on exertion, though does appreciate mild rare cough. No qtfu-mdi-ojmsool products taken to assist. No close contacts with similar complaints. No other associated symptoms and no other alleviating/aggravating factors. ROS Const Constitutional: No other (As above) Exam Const General: cooperative, healthy appearing and no acute distress Orientation: alert, awake and oriented x3 HENMT Head: normal to inspection Ears: hearing grossly normal bilaterally, external ears normal, TM's normal bilaterally and EAC's normal Nose: external nose normal, nares normal, septum normal and no nasal discharge Face and sinus: normal facial exam, sinuses nontender and face symmetric Mouth: oral mucosae normal, lip normal, tongue normal and oropharynx normal Throat: posterior oropharynx normal, tonsils normal (Without erythema or exudate or hypertrophy), uvula midline and no postnasal drainage Eyes General: appearance normal, both eyes and all related structures Neck Neck: normal visual inspection, no lymphadenopathy, no meningeal signs and supple Resp Effort Inspection: normal respiratory effort (Declining stethoscope assessment of heart and lungs upon offering) and able to speak in complete sentences Cardio Rate: regular rate Pulses: radial pulses present Skin General: no rashes or lesions noted Neuro General: patient alert, patient awake and patient oriented x3 Cognition: normal cognition Speech: speech normal Psych Appearance: grossly normal Mental Status: mental status grossly normal Mood: congruent mood Affect: normal affect Speech and Movement: speech and movement normal Attitude: cooperative Coding Level of Care Code Off vis,est,level 2 Assessment and Plan Plan Details Goals Barriers: Goals Decrease spasm Improve ali (more content not included)... Normal [facility] Absolute lymphocyte counton 06-28-2023 Lymphocytes Auto (Unsp spec) [#/Vol] 2.66 10*3/uL 0.83-4.[address] [facility] Basophil percentageon 2023 Basophils/100 WBC (Bld) 0.6 % 0-1 [facility] Bilirubin [Mass/Vol] 0.40 mg/dL 0.20-1.00 [facility] Comment on above: For patients on eltr ombopag therapy, use of Dimension [place] TBIL is not recommended. Chloride [Moles/Vol] 109 mmol/L 98-107 [facility] Cholesterol [Mass/Vol] 156 mg/dL <200 [facility] Comment on above: <200 mg/dL Desirable 200-240 mg/dL Borderline >240 mg/dL High Risk Eosinophils/100 WBC (Bld) 1.3 % 0-[address] [facility] Glucose [Mass/Vol] 110 mg/dL 74-106 [facility] Comment on above: Fasting Glucose resu lt from 100 to 125 mg/dL suggests IMPAIRED HOMEOSTASIS per A.D.A. criteria. Neutrophils (Bld) [#/Vol] 7.4 10*3/uL 2.0-7.[address] [facility] Neutrophils/100 WBC (Bld) 68.0 % 47-[address] [facility] Potassium [Moles/Vol] 4.0 mmol/L 3.5-5.1 [facility] Protein [Mass/Vol] 7.6 g/dL 6.4-8.2 [facility] Sodium [Moles/Vol] 137 mmol/L 136-145 [facility] Triglyceride [Mass/Vol] 72 mg/dL <199 [facility] Comment on above: The drugs N-Acetylcy steine and Metamizole may falsely depress this assay.Serum Triglycerides Reference Interval Normal <150 mg/dL Borderline high 150 - 199 mg/dL High 200 - 499 mg/dL Very High > or = 500 mg/dL WBC (Bld) [#/Vol] 10.9 10*3/uL 4.4-11.0 [facility] Blood erythrocytes count (nu mber/volume)on 06-28-2023 RBC (Bld) [#/Vol] 5.83 10*6/uL 4.2-5.4 [facility] Blood hemoglobin measurement (mass/volume)on 06-28-2023 Hemoglobin (Bld) [Mass/Vol] 15.5 g/dL 12.0-15.[address] [facility] Blood lymphocytes/100 leukoc yteson 06-28-2023 Lymphocytes/100 WBC (Bld) 24.5 % 19-[address] [facility] Blood monocytes/100 leukocyt eson 06-28-2023 Monocytes/100 WBC (Bld) 5.0 % 0-10 [facility] Blood platelet mean volumeon 06-28-2023 Platelet mean volume (Bld) [Entitic vol] 10.1 fL 6.2-12.[address] [facility] Determination of erythrocyte mean corpuscular volume (MCV)on 06-28-2023 MCV (RBC) [Entitic vol] 82.3 fL 81-99 [facility] Folic acid serumon Folate [Mass/Vol] 17.80 ng/mL 3.1-55.4 [facility] Hematocrit Auto (Bld) [Volum e fraction]on 06-28-2023 Hematocrit (Bld) [Volume fraction] 48.0 % 37-[address] [facility] Iron measurement (mass/mass) on 06-28-2023 Iron (Unsp spec) [Mass/Mass] 39 ug/dL 50-[address] [facility] Laboratory - Chemistry and C hemistry - challengeon 06-28-2023 ALP [Catalytic activity/Vol] 80 U/L 45-[address] [facility] ALT [Catalytic activity/Vol] 20 U/L 13-[address] [facility] CO2 [Moles/Vol] 22.0 mmol/L 21.0-32.[address] [facility] Cobalamin (Vitamin B12) [Mass/Vol] 382 pg/mL 211-[address] [facility] Free T4 [Mass/Vol] 1.10 ng/dL 0.76-1.46 [facility] Globulin (S) [Mass/Vol] 3.9 g/dL 2.2-4.2 [facility] Urea nitrogen/Creatinine [Mass ratio] 12.0 mg/mg 10-[address] [facility] - Hematology and Cell countson 06-28-2023 Erythrocyte distribution width (RBC) [Entitic vol] 46.8 fL 35.1-43.[address] [facility] Erythrocyte distribution width (RBC) [Ratio] 15.9 % 11.6-14.[address] [facility] Immature granulocytes/100 WBC (Bld) 0.600 % 0.0-0.[address] [facility] Comment on above: IG% - Immature Granu locytes (promyelocytes, myelocytes and metamyelocytes) > 1% indicates that a LEFT SHIFT is Present. MCH (RBC) [Entitic mass] 26.6 pg 27.0-32.[address] [facility] Nucleated RBC/100 WBC (Bld) [Ratio] 0 % 0-[address] [facility] MCHC Auto (RBC) [Mass/Vol]on 06-28-2023 MCHC (RBC) [Mass/Vol] 32.3 g/dL 32-36 [facility] [facility] No Panel Informationon 06-28 Estimated GFR (MDRD) Amer 109 mL/min >[address] [facility] Comment on above: GFR Calc Estimated GFR (MDRD) Non-Af Amer 90 mL/min >[address] [facility] Comment on above: Non- GFR Calc Thyroid Stimulating Hormone (TSH) 1.28 uIU/mL 0.358-3.[address] [facility] Total Iron Binding Capacity 348 ug/dL 250-[address] [facility] Vitamin D 25-Hydroxy 61.3 ng/mL [facility] Comment on above: Vitamin D 25(OH) Sta tus Range Deficiency <20 ng/mL (50nmol/L) Insufficiency 20 - 30 ng/mL (50 - 75 nmol/L) Sufficiency 30 - 100 ng/mL (75 - 250 nmol/L) Toxicity >100 ng/mL (>250 nmol/L) Platelets bldon 06-28-2023 Platelets (Bld) [#/Vol] 373 10*3/uL 150-[address] [facility] Serum or plasma albumin emanuel urement (mass/volume)on 06-28-2023 Albumin [Mass/Vol] 3.7 g/dL 3.2-5.0 [facility] Serum or plasma albumin/glob ulin mass ratioon 06-28-2023 Albumin/Globulin [Mass ratio] 0.9 {ratio} 0.9-2.[address] [facility] Serum or plasma calcium emanuel urement (mass/volume)on 06-28-2023 Calcium [Mass/Vol] 9.3 mg/dL 8.5-10.1 [facility] Serum or plasma cholesterol in HDL measurement (mass/volume)on 06-28-2023 Cholesterol in HDL [Mass/Vol] 47 mg/dL >[address] [facility] Comment on above: The drugs N-Acetylcy steine and Metamizole may falsely depress this assay. Reference Range HDL <40 mg/dL Low HDL Cholesterol HDL >or= 60 mg/dL High HDL Cholesterol Serum or plasma cholesterol in VLDL measurement (mass/volume)on 06-28-2023 Cholesterol in VLDL [Mass/Vol] 14 mg/dL 5-[address] [facility] Serum or plasma creatinine m easurement (mass/volume)on 06-28-2023 Creatinine [Mass/Vol] 0.75 mg/dL 0.55-1.02 [facility] Comment on above: The validity of the calculated GFR & GFRAA in patients over 70 years has not been determined. Clinical correlation is essential. Serum or plasma ferritin breanne surement (mass/volume)on 06-28-2023 Ferritin [Mass/Vol] 193 ng/mL 8-252 [facility] Serum or plasma iron saturat ion measurement (mass fraction)on 06-28-2023 Iron saturation [Mass fraction] 11.2 % 15.0-55.[address] [facility] Serum or plasma low density lipoprotein (LDL) cholesterol measurement (mass/volume)on 06-28-2023 Cholesterol in LDL [Mass/Vol] 95 mg/dL 0-[address] [facility] Serum or plasma urea nitroge n measurement (mass/volume)on 06-28-2023 Urea nitrogen [Mass/Vol] 9 mg/dL 7-[address] [facility] Thin prep Papanicolaou smear with manual screeningon 06-28-2023 Thin prep Papanicolaou smear with manual screening 11 U/L 15-[address] [facility] Thin prep Papanicolaou smear with manual screening 6 5-[address] [facility] Whole blood hemoglobin A1c/t otal hemoglobin ratio (mass fraction)on 06-28-2023 HbA1c (Bld) [Mass fraction] 5.5 % 3.8-5.[address] [facility] Comment on above: Normal < 5.7 % Predi abetic 5.7 - 6.4 % Diabetic >or= 6.5 % Please note range changes. COVID-19 virus antigen assay Ordered By: Karlo Good on 03-21-2023 SARS-CoV-2 (COVID-19) Ag IA.rapid Ql (Resp) [facility] SARS-CoV-2 (COVID-19) Ag IA.rapid Ql (Resp) [facility] Absolute lymphocyte countOrd ered By: HEALTH ASSESSMENT on 03-05-2023 Lymphocytes Auto (Unsp spec) [#/Vol] 2.42 10*3/uL 0.83-4.[address] [facility] Absolute reticulocyte countO rdered By: HEALTH ASSESSMENT on 03-05-2023 Reticulocytes (Bld) [#/Vol] 0.00 10*3/uL 0-[address] [facility] Basophil percentageOrdered B y: HEALTH ASSESSMENT on 03-05-2023 Basophil percentage 1.9 mg/dL 2.5-4.9 [facility] Bilirubin [Mass/Vol] 0.20 mg/dL 0.20-1.00 [facility] Comment on above: For patients on eltr ombopag therapy, use of Dimension [place] TBIL is not recommended. Chloride [Moles/Vol] 110 mmol/L 98-107 [facility] Cholesterol [Mass/Vol] 157 mg/dL <200 [facility] Comment on above: <200 mg/dL Desirable 200-240 mg/dL Borderline >240 mg/dL High Risk Glucose [Mass/Vol] 96 mg/dL 74-106 [facility] LDH [Catalytic activity/Vol] 169 U/L 84-[address] [facility] Neutrophils (Bld) [#/Vol] 6.6 10*3/uL 2.0-7.[address] [facility] Potassium [Moles/Vol] 4.0 mmol/L 3.5-5.1 [facility] Protein [Mass/Vol] 7.6 g/dL 6.4-8.2 [facility] Sodium [Moles/Vol] 138 mmol/L 136-145 [facility] Triglyceride [Mass/Vol] 88 mg/dL <199 [facility] Comment on above: The drugs N-Acetylcy steine and Metamizole may falsely depress this assay.Serum Triglycerides Reference Interval Normal <150 mg/dL Borderline high 150 - 199 mg/dL High 200 - 499 mg/dL Very High > or = 500 mg/dL WBC (Bld) [#/Vol] 9.8 10*3/uL 4.4-11.0 [facility] Blood erythrocytes count (nu mber/volume)Ordered By: HEALTH ASSESSMENT on 03-05-2023 RBC (Bld) [#/Vol] 5.67 10*6/uL 4.2-5.4 [facility] Blood hemoglobin measurement (mass/volume)Ordered By: HEALTH ASSESSMENT on 03-05-2023 Hemoglobin (Bld) [Mass/Vol] 14.9 g/dL 12.0-15.[address] [facility] Blood platelet mean volumeOr dered By: HEALTH ASSESSMENT on 03-05-2023 Platelet mean volume (Bld) [Entitic vol] 10.4 fL 6.2-12.[address] [facility] COVID-19 virus antigen assay Ordered By: Karlo Good on 09-18-2023 SARS-CoV-2 (COVID-19) Ag IA.rapid Ql (Resp) [facility] SARS-CoV-2 (COVID-19) Ag IA.rapid Ql (Resp) [facility] Determination of erythrocyte mean corpuscular volume (MCV)Ordered By: HEALTH ASSESSMENT on 03-05-2023 MCV (RBC) [Entitic vol] 83.4 fL 81-99 [facility] Direct bilirubinOrdered By: HEALTH ASSESSMENT on 03-05-2023 Bilirubin.direct [Mass/Vol] 0.11 mg/dL 0.00-0.[address] [facility] Hematocrit Auto (Bld) [Volum e fraction]Ordered By: HEALTH ASSESSMENT on 03-05-2023 Hematocrit (Bld) [Volume fraction] 47.3 % 37-[address] [facility] Laboratory - Chemistry and C hemistry - challengeOrdered By: HEALTH ASSESSMENT on 03-05-2023 ALP [Catalytic activity/Vol] 89 U/L 45-[address] [facility] ALT [Catalytic activity/Vol] 22 U/L 13-[address] [facility] Cholesterol.total/Karlie sterol in HDL [Mass ratio] 3.70 {ratio} [facility] CO2 [Moles/Vol] 26.0 mmol/L 21.0-32.[address] [facility] Globulin (S) [Mass/Vol] 4.0 g/dL 2.2-4.2 [facility] Urea nitrogen/Creatinine [Mass ratio] 11.4 mg/mg 10-[address] [facility] Laboratory - Hematology and Cell countsOrdered By: HEALTH ASSESSMENT on 03-05-2023 Erythrocyte distribution width (RBC) [Entitic vol] 47.1 fL 35.1-43.[address] [facility] Erythrocyte distribution width (RBC) [Ratio] 15.7 % 11.6-14.[address] [facility] MCH (RBC) [Entitic mass] 26.3 pg 27.0-32.[address] [facility] Nucleated RBC/100 WBC (Bld) [Ratio] 0 % 0-[address] [facility] MCHC Auto (RBC) [Mass/Vol]Or dered By: HEALTH ASSESSMENT on 03-05-2023 MCHC (RBC) [Mass/Vol] 31.5 g/dL 32-36 [facility] No Panel InformationOrdered By: HEALTH ASSESSMENT on 03-05-2023 Estimated GFR (MDRD) Amer 103 mL/min >[address] [facility] Comment on above: GFR Calc Estimated GFR (MDRD) Non-Af Amer 85 mL/min >[address] [facility] Comment on above: Non- GFR Calc Platelets bldOrdered By: [facility] ASSESSMENT on 03-05-2023 Platelets (Bld) [#/Vol] 384 10*3/uL 150-[address] [facility] Segmented neutrophils/100 WB C Auto (Bld)Ordered By: HEALTH ASSESSMENT on 03-05-2023 Segmented neutrophils/100 WBC (Bld) 67.7 % 47-[address] [facility] Serum or plasma albumin emanuel urement (mass/volume)Ordered By: HEALTH ASSESSMENT on 03-05-2023 Albumin [Mass/Vol] 3.6 g/dL 3.2-5.0 [facility] Serum or plasma albumin/glob ulin mass ratioOrdered By: HEALTH ASSESSMENT on 03-05-2023 Albumin/Globulin [Mass ratio] 0.9 {ratio} 0.9-2.[address] [facility] Serum or plasma calcium emanuel urement (mass/volume)Ordered By: HEALTH ASSESSMENT on 03-05-2023 Calcium [Mass/Vol] 8.8 mg/dL 8.5-10.1 [facility] Serum or plasma cholesterol in HDL measurement (mass/volume)Ordered By: HEALTH ASSESSMENT on 03-05-2023 Cholesterol in HDL [Mass/Vol] 43 mg/dL >[address] [facility] Comment on above: The drugs N-Acetylcy steine and Metamizole may falsely depress this assay. Reference Range HDL <40 mg/dL Low HDL Cholesterol HDL >or= 60 mg/dL High HDL Cholesterol Serum or plasma cholesterol in VLDL measurement (mass/volume)Ordered By: HEALTH ASSESSMENT on 03-05-2023 Cholesterol in VLDL [Mass/Vol] 18 mg/dL 5-[address] [facility] Serum or plasma creatinine m easurement (mass/volume)Ordered By: HEALTH ASSESSMENT on 03-05-2023 Creatinine [Mass/Vol] 0.79 mg/dL 0.55-1.02 [facility] Comment on above: The validity of the calculated GFR & GFRAA in patients over 70 years has not been determined. Clinical correlation is essential. Serum or plasma low density lipoprotein (LDL) cholesterol measurement (mass/volume)Ordered By: HEALTH ASSESSMENT on 03-05-2023 Cholesterol in LDL [Mass/Vol] 96 mg/dL 0-[address] [facility] Serum or plasma urea nitroge n measurement (mass/volume)Ordered By: HEALTH ASSESSMENT on 03-05-2023 Urea nitrogen [Mass/Vol] 9 mg/dL 7-[address] [facility] Serum or plasma uric acid me asurement (mass/volume)Ordered By: HEALTH ASSESSMENT on 03-05-2023 Urate [Mass/Vol] 4.1 mg/dL 2.6-6.[address] [facility] Comment on above: The drugs N-Acetylcy steine and Metamizole may falsely depress this assay. Thin prep Papanicolaou smear with manual screeningOrdered By: HEALTH ASSESSMENT on 03-05-2023 Thin prep Papanicolaou smear with manual screening 13 U/L 15-[address] [facility] Thin prep Papanicolaou smear with manual screening 2 5-[address] [facility] Absolute lymphocyte counton 08-08-2022 Lymphocytes Auto (Unsp spec) [#/Vol] 2.69 10*3/uL 0.83-4.[address] [facility] Basophil percentageon 2022 Basophils/100 WBC (Bld) 0.7 % 0-1 [facility] Bilirubin [Mass/Vol] 0.30 mg/dL 0.20-1.00 [facility] Comment on above: For patients on eltr ombopag therapy, use of Dimension [place] TBIL is not recommended. Chloride [Moles/Vol] 109 mmol/L 98-107 [facility] Cholesterol [Mass/Vol] 162 mg/dL <200 [facility] Comment on above: <200 mg/dL Desirable 200-240 mg/dL Borderline >240 mg/dL High Risk Eosinophils/100 WBC (Bld) 1.7 % 0-[address] [facility] Glucose [Mass/Vol] 80 mg/dL 74-106 [facility] Neutrophils (Bld) [#/Vol] 5.7 10*3/uL 2.0-7.[address] [facility] Neutrophils/100 WBC (Bld) 62.4 % 47-[address] [facility] Potassium [Moles/Vol] 4.0 mmol/L 3.5-5.1 [facility] Protein [Mass/Vol] 7.7 g/dL 6.4-8.2 [facility] Sodium [Moles/Vol] 138 mmol/L 136-145 [facility] Triglyceride [Mass/Vol] 115 mg/dL <199 [facility] Comment on above: The drugs N-Acetylcy steine and Metamizole may falsely depress this assay.Serum Triglycerides Reference Interval Normal <150 mg/dL Borderline high 150 - 199 mg/dL High 200 - 499 mg/dL Very High > or = 500 mg/dL WBC (Bld) [#/Vol] 9.2 10*3/uL 4.4-11.0 [facility] Blood erythrocytes count (nu mber/volume)on 08-08-2022 RBC (Bld) [#/Vol] 5.64 10*6/uL 4.2-5.4 [facility] Blood hemoglobin measurement (mass/volume)on 08-08-2022 Hemoglobin (Bld) [Mass/Vol] 15.2 g/dL 12.0-15.[address] [facility] Blood lymphocytes/100 leukoc yteson 08-08-2022 Lymphocytes/100 WBC (Bld) 29.2 % 19-[address] [facility] Blood monocytes/100 leukocyt eson 08-08-2022 Monocytes/100 WBC (Bld) 5.6 % 0-10 [facility] Blood platelet mean volumeon 08-08-2022 Platelet mean volume (Bld) [Entitic vol] 9.8 fL 6.2-12.[address] [facility] Determination of erythrocyte mean corpuscular volume (MCV)on 08-08-2022 MCV (RBC) [Entitic vol] 82.8 fL 81-99 [facility] Hematocrit Auto (Bld) [Volum e fraction]on 08-08-2022 Hematocrit (Bld) [Volume fraction] 46.7 % 37-[address] [facility] Iron measurement (mass/mass) on 08-08-2022 Iron (Unsp spec) [Mass/Mass] 41 ug/dL 50-[address] [facility] Laboratory - Chemistry and C hemistry - challengeon 08-08-2022 ALP [Catalytic activity/Vol] 94 U/L 45-[address] [facility] ALT [Catalytic activity/Vol] 24 U/L 13-[address] [facility] CO2 [Moles/Vol] 25.0 mmol/L 21.0-32.[address] [facility] Free T4 [Mass/Vol] 1.00 ng/dL 0.76-1.46 [facility] Globulin (S) [Mass/Vol] 4.2 g/dL 2.2-4.2 [facility] Urea nitrogen/Creatinine [Mass ratio] 12.4 mg/mg 10-[address] [facility] Laboratory - Hematology and Cell countson 08-08-2022 Erythrocyte distribution width (RBC) [Entitic vol] 45.9 fL 35.1-43.[address] [facility] Erythrocyte distribution width (RBC) [Ratio] 15.1 % 11.6-14.[address] [facility] Immature granulocytes/100 WBC (Bld) 0.400 % 0.0-0.[address] [facility] Comment on above: IG% - Immature Granu locytes (promyelocytes, myelocytes and metamyelocytes) > 1% indicates that a LEFT SHIFT is Present. MCH (RBC) [Entitic mass] 27.0 pg 27.0-32.[address] [facility] Nucleated RBC/100 WBC (Bld) [Ratio] 0 % 0-[address] [facility] MCHC Auto (RBC) [Mass/Vol]on 08-08-2022 MCHC (RBC) [Mass/Vol] 32.5 g/dL 32-36 [facility] No Panel Informationon 08-08 Estimated GFR (MDRD) Amer 90 mL/min >[address] [facility] Comment on above: GFR Calc Estimated GFR (MDRD) Non-Af Amer 75 mL/min >[address] [facility] Comment on above: Non- GFR Calc Thyroid Stimulating Hormone (TSH) 1.42 uIU/mL 0.358-3.[address] [facility] Total Iron Binding Capacity 253 ug/dL 250-[address] [facility] Vitamin D 25-Hydroxy 28.2 ng/mL [facility] Comment on above: Vitamin D 25(OH) Sta tus Range Deficiency <20 ng/mL (50nmol/L) Insufficiency 20 - 30 ng/mL (50 - 75 nmol/L) Sufficiency 30 - 100 ng/mL (75 - 250 nmol/L) Toxicity >100 ng/mL (>250 nmol/L) Platelets bldon 08-08-2022 Platelets (Bld) [#/Vol] 358 10*3/uL 150-[address] [facility] Serum or plasma albumin emanuel urement (mass/volume)on 08-08-2022 Albumin [Mass/Vol] 3.5 g/dL 3.2-5.0 [facility] Serum or plasma albumin/glob ulin mass ratioon 08-08-2022 Albumin/Globulin [Mass ratio] 0.8 {ratio} 0.9-2.[address] [facility] Serum or plasma calcium emanuel urement (mass/volume)on 08-08-2022 Calcium [Mass/Vol] 9.7 mg/dL 8.5-10.1 [facility] Serum or plasma cholesterol in HDL measurement (mass/volume)on 08-08-2022 Cholesterol in HDL [Mass/Vol] 48 mg/dL >[address] [facility] Comment on above: The drugs N-Acetylcy steine and Metamizole may falsely depress this assay. Reference Range HDL <40 mg/dL Low HDL Cholesterol HDL >or= 60 mg/dL High HDL Cholesterol Serum or plasma cholesterol in VLDL measurement (mass/volume)on 08-08-2022 Cholesterol in VLDL [Mass/Vol] 23 mg/dL 5-[address] [facility] Serum or plasma creatinine m easurement (mass/volume)on 08-08-2022 Creatinine [Mass/Vol] 0.89 mg/dL 0.55-1.02 [facility] Comment on above: The validity of the calculated GFR & GFRAA in patients over 70 years has not been determined. Clinical correlation is essential. Serum or plasma ferritin breanne surement (mass/volume)on 08-08-2022 Ferritin [Mass/Vol] 212 ng/mL 8-252 [facility] Serum or plasma iron saturat ion measurement (mass fraction)on 08-08-2022 Iron saturation [Mass fraction] 16.2 % 15.0-55.[address] [facility] Serum or plasma low density lipoprotein (LDL) cholesterol measurement (mass/volume)on 08-08-2022 Cholesterol in LDL [Mass/Vol] 91 mg/dL 0-[address] [facility] Serum or plasma urea nitroge n measurement (mass/volume)on 08-08-2022 Urea nitrogen [Mass/Vol] 11 mg/dL 7-[address] [facility] Thin prep Papanicolaou smear with manual screeningon 08-08-2022 Thin prep Papanicolaou smear with manual screening 18 U/L 15-[address] [facility] Thin prep Papanicolaou smear with manual screening 4 5-[address] [facility] COVID-19 virus antigen assay Ordered By: Dr. Good on 06-29-2022 SARS-CoV-2 (COVID-19) Ag IA.rapid Ql (Resp) [facility] No Panel Informationon 08-15 SARS-CoV-2 Antigen (Rapid) [facility] Work Phone: Provider Note - ED v3on 07-19 Provider Note - ED v3 Provider Note: Chart Review: HISTORY OF PRESENTING ILLNESS FRIDA is a 40 year old Female and was seen by me at 03-Aug-2021 13:02 for a chief complaint of back pain. Other complaints include: lifting a couch and hurt her lower left back.. The historian is the patientsignificant other. Triage Information: Most recent Vital Sign Value Date Presenting Symptoms: LEFT LOWER BACK/SACRAL REGIONAL PAIN. difficulty bending, difficulty walking and muscle cramps. Patient denies bruising. Located in the sacral area. The quality is aching and sharp. The context is bending and exertion. day(s). The timing is constant and worsening. Incident occurred at home. Modifying Factors: Better with ice, lying down and massage. Worse with exertion, heat, activity and movement. Pertinent History is none related to reason for visit. PAST MEDICAL HISTORY ALLERGIES/INTOLERANCES: Allergy Allergen: Augmentin Type: Drug Reaction: Anaphylaxis HEALTH HISTORY: No documented data. OUTPATIENT MEDICATIONS: Home Medications Review Status for Reconciliation: Complete Med Status: Patient Currently Takes Medications Drug Name: Adderall 30 mg oral tablet Instructions: 1 tab(s) orally 2 times a day Drug Name: FLUoxetine 20 mg oral tablet Instructions: 1 tab(s) orally once a day Drug Name: baclofen 10 mg oral tablet Instructions: 1 tab(s) orally 2 times a day Drug Name: Mobic 15 mg oral tablet Instructions: 1 tab(s) orally once a day TAKE IN MORNING WITH FOOD SIGNIFICANT EVENTS: No documented data. REVIEW OF SYSTEMS CONSTITUTIONAL: Negative for: chills, fever and malaise ENMTNose: Negative for: congestion and discharge GASTROINTESTINAL: Negative for: abdominal pain; GENITOURINARY: ( no chance of ) Negative for: dysuria; MUSCULOSKELETAL: POSITIVE for: back pain Negative for: sensory deficits, stiffness and weakness PHYSICAL EXAM CONSTITUTIONAL: Well appearing, well nourished, awake, alert, oriented to person, place, time/situation and in no apparent distress. HENMT: Airway patent, hearing grossly intact, EYES: Clear bilaterally, pupils equal, round and reactive to light. CARDIOVASCULAR: Normal rate, regular rhythm. MUSCULOSKELETAL: Musculoskeletal Exam: atraumatic and normal range of motion Neck Exam: no deformity, pain or tenderness. no restriction of movement Weight Bearing: able Pelvis: stable Spinal Exam: Bruising Location: none Deformity Location: none ROM Limitation: LYING Tenderness Location: SACRAL Extremity Exam: normal NEUROLOGICAL: Alert and oriented, no focal deficits, no motor or sensory deficits. SKIN: Skin normal color for race, warm, dry and intact. No evidence of trauma. CRITICAL CARE VITAL SIGNS: T PRBP SpO2O2(LPM) %FiO2 Method -Jul-2021 13:12:[id number] 96RA [facility] MDM/ED COURSE: 1) Left Acute SIJ dysfunction: tx with steroid injeciton here in office with solu-medrol/depomedrol 62mg/40mg + bupivicaine 0.5mg left SIJ region, after injection, pt tolerates pain, performed various stretching/straight leg raises after steroid injection, pt had no increase in pain. Discussed hydration provide a work note.Differential Diagnosis: herniated disc, low back pain, myofascial strain, pain, sciatica, sprain and strain Myofascial Strain Type: lumbar and sacral Discussed Findings with: patient and family Data Reviewed: vital signs PROGRESS NOTE Procedure performed by: az Ribbon Weaver(s): (Conchita Genao NP-S) Findings: grossly normal anatomy Specimen: no Estimated Blood Loss (mL): none Post-Procedure Diagnosis: left SIJ dysnfuction Name/Description of the procedure: therapeutic steroid injeciton. Indications: pain control. Anatomical location: left SIJ. Local anesthesia administered: bupivacaine 0.5mg . Procedure Details: pt standing, exposed area and with normal aseptic technique & using distraction with Pain Ease spray, I injected with 25g. needle the mixture of solu-medrol/kenalog & bupivicaine without incident, pt tolerated well. . Complications: There were no complications associated with the procedure DISPOSITION Diagnosis/Annotation: ED Dx Name:Sacroiliac joint dysfunction of left side Code:M53.3 Disposition: discharged CONSULT CRITICAL CARE TIME Is this a critically ill patient: no Electronic Signatures: Deonte Dsouza (PAC) (Signed 03-Aug-2021 14:29) Authored: HPI, PMH, ROS, PE, Results/Vital Signs, MDM/ED Course, Procedure, Clinical Impression, Attestation, Chart Review, Scores Last Updated: 03-Aug-2021 14:29 by Deonte Dsouza (PAC) [facility] No Panel Informationon 07-14 SARS-CoV-2 Antigen (Rapid) [facility] Work Phone: Absolute lymphocyte counton 07-01-2021 Lymphocytes Auto (Unsp spec) [#/Vol] 2.53 10*3/uL 0.83-4.[address] [facility] Work Phone: Basophil percentageon 2021 Basophils/100 WBC (Bld) 0.6 % 0-1 [facility] Work Phone: Bilirubin [Mass/Vol] 0.30 mg/dL 0.20-1.00 [facility] Work Phone: Comment on above: For patients on eltr ombopag therapy, use of Dimension [place] TBIL is not recommended. Chloride [Moles/Vol] 103 mmol/L 98-107 [facility] Work Phone: Cholesterol [Mass/Vol] 154 mg/dL <200 [facility] Work Phone: Comment on above: <200 mg/dL Desirable 200-240 mg/dL Borderline >240 mg/dL High Risk Eosinophils/100 WBC (Bld) 1.2 % 0-[address] [facility] Work Phone: Glucose [Mass/Vol] 103 mg/dL 74-106 [facility] Work Phone: Comment on above: Fasting Glucose resu lt from 100 to 125 mg/dL suggests IMPAIRED HOMEOSTASIS per A.D.A. criteria. Neutrophils (Bld) [#/Vol] 7.7 10*3/uL 2.0-7.[address] [facility] Work Phone: [phone] Neutrophils/100 WBC (Bld) 68.8 % 47-[address] [facility] Work Phone: [phone] Potassium [Moles/Vol] 4.0 mmol/L 3.5-5.1 [facility] Work Phone: [phone] Protein [Mass/Vol] 8.1 g/dL 6.4-8.2 [facility] Work Phone: [phone] Sodium [Moles/Vol] 136 mmol/L 136-145 [facility] Work Phone: [phone] Triglyceride [Mass/Vol] 86 mg/dL [facility] Work Phone: [phone] Comment on above: The drugs N-Acetylcy steine and Metamizole may falsely depress this assay.Serum Triglycerides Reference Interval Normal <150 mg/dL Borderline high 150 - 199 mg/dL High 200 - 499 mg/dL Very High > or = 500 mg/dL WBC (Bld) [#/Vol] 11.2 10*3/uL 4.4-11.0 [facility] Work Phone: [phone] Blood erythrocytes count (nu mber/volume)on 07-01-2021 RBC (Bld) [#/Vol] 5.70 10*6/uL 4.2-5.4 [facility] Work Phone: [phone] Blood hemoglobin measurement (mass/volume)on 07-01-2021 Hemoglobin (Bld) [Mass/Vol] 15.0 g/dL 12.0-15.[address] [facility] Work Phone: [phone] Blood lymphocytes/100 leukoc yteson 07-01-2021 Lymphocytes/100 WBC (Bld) 22.7 % 19-[address] [facility] Work Phone: [phone] monocytes/100 leukocyt eson 07-01-2021 Monocytes/100 WBC (Bld) 6.3 % 0-10 [facility] Work Phone: [phone] Blood platelet mean volumeon 07-01-2021 Platelet mean volume (Bld) [Entitic vol] 9.9 fL 6.2-12.[address] [facility] Work Phone: [phone] Determination of erythrocyte mean corpuscular volume (MCV)on 07-01-2021 MCV (RBC) [Entitic vol] 81.1 fL 81-99 [facility] Work Phone: [phone] Hematocrit Auto (Bld) [Volum e fraction]on 07-01-2021 Hematocrit (Bld) [Volume fraction] 46.2 % 37-[address] [facility] Work Phone: Iron measurement (mass/mass) on 07-01-2021 Iron (Unsp spec) [Mass/Mass] 29 ug/dL 50-[address] [facility] Work Phone: Laboratory - Chemistry and C hemistry - challengeon 07-01-2021 ALP [Catalytic activity/Vol] 85 U/L 45-[address] [facility] Work Phone: [phone] ALT [Catalytic activity/Vol] 29 U/L 13-[address] [facility] Work Phone: CO2 [Moles/Vol] 29.0 mmol/L 21.0-32.[address] [facility] Work Phone: [phone] Cobalamin (Vitamin B12) [Mass/Vol] 388 pg/mL 211-[address] [facility] Work Phone: [phone] Free T4 [Mass/Vol] 1.29 ng/dL 0.76-1.46 [facility]: [phone] Globulin (S) [Mass/Vol] 4.1 g/dL 2.2-4.2 [facility] Work Phone: Urea nitrogen/Creatinine [Mass ratio] 19.4 mg/mg 10-[address] [facility] Work Phone: [phone] Laboratory - Hematology and Cell countson 07-01-2021 Erythrocyte distribution width (RBC) [Entitic vol] 42.8 fL 35.1-43.[address] [facility] Work Phone: Erythrocyte distribution width (RBC) [Ratio] 14.7 % 11.6-14.[address] [facility] Work Phone: [phone] Immature granulocytes/100 WBC (Bld) 0.400 % 0.0-0.[address] [facility] Work Phone: Comment on above: IG% - Immature Granu locytes (promyelocytes, myelocytes and metamyelocytes) > 1% indicates that a LEFT SHIFT is Present. MCH (RBC) [Entitic mass] 26.3 pg 27.0-32.[address] [facility] Work Phone: Nucleated RBC/100 WBC (Bld) [Ratio] 0 % 0-[address] [facility] Work Phone: [phone] MCHC Auto (RBC) [Mass/Vol]on 07-01-2021 MCHC (RBC) [Mass/Vol] 32.5 g/dL 32-36 [facility] Work Phone: No Panel Informationon 07-01 Estimated GFR (MDRD) Amer 115 mL/min >[address] [facility] Work Phone: Comment on above: GFR Calc Estimated GFR (MDRD) Non-Af Amer 95 mL/min >[address] [facility] Work Phone: Comment on above: Non- GFR Calc Thyroid Stimulating Hormone (TSH) 2.66 uIU/mL 0.358-3.[address] [facility] Work Phone: [phone] Total Iron Binding Capacity 282 ug/dL 250-[address] [facility] Work Phone: [phone] Vitamin D 25-Hydroxy 23.2 ng/mL [facility] Work Phone: [phone] Comment on above: Vitamin D 25(OH) Sta tus Range Deficiency <20 ng/mL (50nmol/L) Insufficiency 20 - 30 ng/mL (50 - 75 nmol/L) Sufficiency 30 - 100 ng/mL (75 - 250 nmol/L) Toxicity >100 ng/mL (>250 nmol/L) Platelets bldon 07-01-2021 Platelets (Bld) [#/Vol] 347 10*3/uL 150-[address] [facility] Work Phone: Serum or plasma albumin emanuel urement (mass/volume)on 07-01-2021 Albumin [Mass/Vol] 4.0 g/dL 3.2-5.0 [facility] Work Phone: Serum or plasma albumin/glob ulin mass ratioon 07-01-2021 Albumin/Globulin [Mass ratio] 1.0 {ratio} 0.9-2.[address] [facility] Work Phone: Serum or plasma calcium emanuel urement (mass/volume)on 07-01-2021 Calcium [Mass/Vol] 9.9 mg/dL 8.5-10.1 [facility] Work Phone: Serum or plasma cholesterol in HDL measurement (mass/volume)on 07-01-2021 Cholesterol in HDL [Mass/Vol] 44 mg/dL [facility] Work Phone: Comment on above: The drugs N-Acetylcy steine and Metamizole may falsely depress this assay. Reference Range HDL <40 mg/dL Low HDL Cholesterol HDL >or= 60 mg/dL High HDL Cholesterol Serum or plasma cholesterol in VLDL measurement (mass/volume)on 07-01-2021 Cholesterol in VLDL [Mass/Vol] 17 mg/dL 5-[address] [facility] Work Phone: Serum or plasma creatinine m easurement (mass/volume)on 07-01-2021 Creatinine [Mass/Vol] 0.72 mg/dL 0.55-1.02 [facility] Work Phone: Comment on above: The validity of the calculated GFR & GFRAA in patients over 70 years has not been determined. Clinical correlation is essential. Serum or plasma ferritin breanne surement (mass/volume)on 07-01-2021 Ferritin [Mass/Vol] 171 ng/mL 8-252 [facility] Work Phone: Serum or plasma iron saturat ion measurement (mass fraction)on 07-01-2021 Iron saturation [Mass fraction] 10.3 % 15.0-55.[address] [facility] Work Phone: Serum or plasma low density lipoprotein (LDL) cholesterol measurement (mass/volume)on 07-01-2021 Cholesterol in LDL [Mass/Vol] 93 mg/dL 0-[address] [facility] Work Phone: Serum or plasma urea nitroge n measurement (mass/volume)on 07-01-2021 Urea nitrogen [Mass/Vol] 14 mg/dL 7-[address] [facility] Work Phone: Thin prep Papanicolaou smear with manual screeningon 07-01-2021 Thin prep Papanicolaou smear with manual screening 12 U/L 15-[address] [facility] Work Phone: Thin prep Papanicolaou smear with manual screening 4 5-[address] [facility] Work Phone: Laboratory - Microbiology an d Antimicrobial susceptibilityon 06-26-2021 SARS-CoV-2 (COVID-19) RNA CARMITA+probe Ql (Unsp spec) Not detected [facility] Work Phone: SARS coronavirus RNA [Presen ce] in Unspecified specimen by CARMITA with probe detectionon 06-16-2021 SARS-CoV RNA CARMITA+probe Ql (Unsp spec) Not detected Not Detected [facility] Work Phone: Comment on above: This nucleic acid am plification test was developed and itsperformance characteristics determined by [facility]. Nucleic acid amplification tests include RT-PCR and TMA. This test has not been FDA cleared orapproved. This test has been authorized by FDA under anEmergency Use Authorization (EUA). This test is onlyauthorized for the duration of time the declaration thatcircumstances exist justifying the authorization of theemergency use of in vitro diagnostic tests for detection [id number] virus and/or diagnosis of COVID-19 infectionunder section 564(b)(1) of the Act, 21 U.S.C. 360bbb-3(b)(1), unless the authorization is terminated or revokedsooner.When diagnostic testing is negative, the possibility of afalse negative result should be considered in the contextof a patient's recent exposures and the presence ofclinical signs and symptoms consistent with COVID-19. Anindividual without symptoms of COVID-19 and who is notshedding SARS-CoV-2 virus would expect to have a negative(not detected) result in this assay. No Panel Informationon 06-14 SARS-CoV-2 Antigen (Rapid) [facility] Work Phone: CBC AND DIFFERENTIALon 11-17 DIFFERENTIAL SEE MANUAL DIFF Normal [facility] Comment on above: Performed By: #### C BCDF #### [address] [address] Erythrocyte distribution width (RBC) [Ratio] 14.6 % High 11.5 - 14.5 [facility] Comment on above: Performed By: #### C BCDF #### [address] [address] Hematocrit (Bld) [Volume fraction] 48.5 % High 36.0 - 46.0 [facility] Comment on above: Performed By: #### C BCDF #### [address] [address] Hemoglobin (Bld) [Mass/Vol] 15.8 g/dL Normal 12.0 - 16.0 [facility] Comment on above: Performed By: #### C BCDF #### [address] [address] MCHC (RBC) [Mass/Vol] 32.6 g/dL Normal 32.0 - 36.0 [facility] Comment on above: Performed By: #### C BCDF #### [address] [address] MCV (RBC) [Entitic vol] 83 fL Normal 80 - 100 [facility] Comment on above: Performed By: #### C BCDF #### [address] [address] NUCLEATED RBC 0.1 /100 WBC Normal [facility] Comment on above: Performed By: #### C BCDF #### [address] [address] Platelets (Bld) [#/Vol] 344 10*3/uL Normal 150 - 450 [facility] Comment on above: Performed By: #### C BCDF #### [address] [address] RBC 5.87 x10E12/L High 4.00 - 5.20 [facility] Comment on above: Performed By: #### C BCDF #### [address] [address] WBC (Bld) [#/Vol] 10.4 10*3/uL Normal 4.4 - 11.3 [facility] Comment on above: Performed By: #### C BCDF #### [place] [id number] COMPREHENSIVE PANELon 2020 Albumin [Mass/Vol] 4.5 g/dL Normal 3.4 - 5.0 [facility] Comment on above: Performed By: #### C MP ####[address] [address] ALP [Catalytic activity/Vol] 72 U/L Normal 33 - 110 [facility] Comment on above: Performed By: #### C MP ####[place] [id number] ALT [Catalytic activity/Vol] 27 U/L Normal 7 - 45 [facility] Comment on above: Result Comment: Zhanna ents treated with Sulfasalazine may generate falsely decreased results for ALT. Performed By: #### C MP ####[address] [address] Anion gap [Moles/Vol] 10 mmol/L Normal 10 - 20 [facility] Comment on above: Performed By: #### C MP ####[address] [address] AST [Catalytic activity/Vol] 18 U/L Normal 9 - 39 [facility] Comment on above: Performed By: #### C MP ####[address] [address] Bilirubin [Mass/Vol] 0.5 mg/dL Normal 0.0 - 1.2 [facility] Comment on above: Performed By: #### C MP ####[address] [address] Calcium [Mass/Vol] 9.6 mg/dL Normal 8.6 - 10.3 [facility] Comment on above: Performed By: #### C MP ####[address] [address] Chloride [Moles/Vol] 101 mmol/L Normal 98 - 107 [facility] Comment on above: Performed By: #### C MP ####[address] [address] Creatinine [Mass/Vol] 0.66 mg/dL Normal 0.50 - 1.05 [facility] Comment on above: Performed By: #### C MP ####[address] [address] GFR- AM. >60 Normal >60 [facility] Comment on above: Result Comment: CALC ULATIONS OF ESTIMATED GFR ARE PERFORMED USING THE MDRD STUDY EQUATION FOR THE IDMS-TRACEABLE CREATININE METHODS. CLIN CHEM 2007;53:766-72 Performed By: #### C MP ####[address] [address] GFR-NON AM. >60 Normal >60 [facility] Comment on above: Performed By: #### C MP ####[address] [address] Glucose [Mass/Vol] 110 mg/dL High 74 - 99 [facility] Comment on above: Performed By: #### C MP ####[address] [address] HCO3 (Bld) [Moles/Vol] 30 mmol/L Normal 21 - 32 [facility] Comment on above: Performed By: #### C MP ####[address] [address] Potassium [Moles/Vol] 3.9 mmol/L Normal 3.5 - 5.3 [facility] Comment on above: Performed By: #### C MP ####[place] [address] Protein [Mass/Vol] 7.4 g/dL Normal 6.4 - 8.2 [facility] Comment on above: Performed By: #### C MP ####[place] [address] Sodium [Moles/Vol] 137 mmol/L Normal 136 - 145 [facility] Comment on above: Performed By: #### C MP ####[place] [address] Urea nitrogen [Mass/Vol] 10 mg/dL Normal 6 - 23 [facility] Comment on above: Performed By: #### C MP ####[place] [address] CORONAVIRUS 2019 BY PCRon SARS-CoV-2 (COVID-19) RNA CARMITA+probe Ql (Unsp spec) Not detected Normal Not Detected [facility] Comment on above: Result Comment: . This test has received FDA Emergency Use Authorization (EUA) and has been verified by [facility]. This test is only authorized for the duration of time that circumstances exist to justify the authorization of the emergency use of in vitro diagnostic tests for the detection of SARS-CoV-2 virus and/or diagnosis of COVID-19 infection under section 564(b)(1) of the Act, 21 U.S.C. 360bbb-3(b)(1), unless the authorization is terminated or revoked sooner. [facility] is certified under CLIA-88 as qualified to perform high complexity testing. Testing is performed in the [facility] laboratory located at [address] [place] [address]. SARS-CoV-2/Flu/RSV Multiplex Test: Fact sheet for providers: https://www.fda.gov/media/012368/download Fact sheet for patients: https://www.fda.gov/media/208727/download Performed By: #### C OV19 ####[place] [address] Lab Specimen Source Nasal, Nasopharyngeal Normal [facility] Comment on above: Performed By: #### C OV19 ####[facility] [place] [address] Covid 19 Resultson 1 SARS-CoV-2 (COVID-19) RNA CARMITA+probe Ql (Unsp spec) NEGATIVE COVID-19 Test Coronaviruses are common world-wide and are the cause of many common colds. SARS-COV2 is a new coronavirus that began circulating worldwide in 2019 so we are calling it COVID-19. It has been estimated that four out of five patients with COVID-19 will recover at home without the need for medical attention. Symptoms of COVID-19 may include cough, fever, shortness of breath, loss of taste or smell and other flu-like symptoms including chills, sore muscles, sore throat, and headache. Severe illness is more common in older people and people with other health problems such as high blood pressure, obesity, and immune system problems. If the test is positive, you have COVID-19. You will be contacted by the ordering physicians office and instructed to remain on home isolation, in accordance with CDC guidelines. You may also be contacted by the [facility] to see if any of your close contacts may have been exposed to the virus and need to quarantine. If the test is negative, you likely do not have COVID-19 at this time, but you still may have a different illness that can spread to other people (like Influenza, or the Flu) and could still be at risk for getting COVID-19. We recommend that you stay away from other people to limit the spread of illness until your symptoms are improving and you are fever-free for 24 hours without the use of fever lowering medications such as acetaminophen or ibuprofen. No test is 100% accurate so if you are still concerned you may have COVID-19, talk to your doctor about the need to continue to stay away from others. Medicines Unless your provider told you not to use the following: Acetaminophen (Tylenol and others) is generally safe. Anti-inflammatory medications, such as Ibuprofen (Advil or Motrin) or Naproxen (Aleve) can also be used. Iqql-ypx-gjmzbge cough and cold medicines can be used according to the instructions on the package. Some jsvt-hmv-qmylbhu medicines also contain acetaminophen. Make sure you are not taking more than your recommended dose. For those not hospitalized, there is no specific treatment available for this illness. Antibiotics do not treat Coronaviruses. Follow-Up Follow up with your doctor by scheduling a virtual visit or consider follow-up at one of our urgent care fever clinics. If you are having difficulty breathing, or are very weak and having difficulty standing, this is a medical emergency. Call 911 or have someone take you to the nearest emergency room immediately. If possible, wear a facemask. Additional guidance from the CDC for patients who tested POSITIVE for COVID-19 How to isolate: Isolate yourself in a specific room at home and limit your contact with others. Use a separate bathroom from other members of the household, when possible. Leave home only to get essential medical care. Do not go to work, school or public areas. Avoid using public transportation, ride-sharing, or taxis. Restrict contact with pets and other animals. If you must care for your pet or be around animals while you are sick, wash your hands before and after your interaction and wear a facemask. Make sure that shared spaces in the home have good airflow, such as by an air conditioner or an opened window, weather permitting. Personal Hygiene Procedures: Wear a face mask when in the same room as other people or pets. If a face mask interferes with your breathing, others should wear a mask when sharing space with you. Frequent hand-washing: wash your hands with soap and water for at least 20 seconds. If soap and water are not available, use alcohol-based hand stave planer tender. Avoid touching your eyes, nose, and mouth with unwashed hands. Household Hygiene Procedures: Avoid sharing personal household items such as dishes, glassware, cups, eating utensils, towels or bedding with other people or pets in your home. After use, these items should be washed with soap and hot water. Disinfect all high-touch surfaces every day with antibacterial cleaning solutions such as Lysol wipes, bleach, cleansers, etc. High-touch surfaces include tabletops, doorknobs, bathroom fixtures, toilets, phones, keyboards, tablets and bedside tables. Immediately clean any surfaces that may have blood, poop or body fluids on them, using antibacterial cleaning solutions such as Lysol wipes, bleach, cleansers, etc. If clothing or bedding come into contact with blood, poop or body fluids, they should be washed immediately. Follow the directions on the laundry detergent and clothing labels but hot water is recommended when possible. Stopping home isolation precautions: If possible, consult your doctor before stopping home isolation precautions. According to the CDC, you can discontinue home isolation precautions when you have met both of these criteria: Your fever and respiratory symptoms have been gone for 24 pattie (more content not included)... Normal [facility] LACTATEon 11-17-2020 Lactate [Moles/Vol] 0.9 mmol/L Normal 0.4 - 2.0 [facility] Comment on above: Result Comment: Abril puncture immediately after or during the administration of Metamizole may lead to falsely low results. Testing should be performed immediately prior to Metamizole dosing. Performed By: #### L ACT #### [address] [address] LIPASEon 11-17-2020 Lipase [Catalytic activity/Vol] 8 U/L Low 9 - 82 [facility] Comment on above: Result Comment: Abril puncture immediately after or during the administration of Metamizole may lead to falsely low results. Testing should be performed immediately prior to Metamizole dosing. H-wqgunm-t-benzoquinone imine (metabolite of Acetaminophen) will generate erroneously low results in samples for patients that have taken toxic doses of acetaminophen. Performed By: #### L IPAS #### [address] [address] MANUAL DIFFERENTIALon 2020 % BAND NEUTROPHIL 2.0 % Normal 0.0 - 5.0 [facility] Comment on above: Performed By: #### M DIFF #### [address] [address] % BASOPHIL 0.0 % Normal 0.0 - 2.0 [facility] Comment on above: Performed By: #### M DIFF #### [address] [address] % EOSINOPHIL 1.0 % Normal 0.0 - 6.0 [facility] Comment on above: Performed By: #### M DIFF #### [address] [address] % LYMPH-ATYPICAL 5.0 % Normal 0.0 - 2.0 [facility] Comment on above: Performed By: #### M DIFF #### [address] [address] % LYMPHOCYTE 15.0 % Normal 13.0 - 44.0 [facility] Comment on above: Performed By: #### M DIFF #### [address] [address] % MONOCYTE 4.0 % Normal 2.0 - 10.0 [facility] Comment on above: Performed By: #### M DIFF #### [address] [address] % SEG NEUTROPHIL 73.0 % Normal 40.0 - 80.0 [facility] Comment on above: Result Comment: Perc ent differential counts (%) should be interpreted in the context of the absolute cell counts (cells/L). Performed By: #### M DIFF #### [address] [address] ANC 7.80 x10E9/L High 1.20 - 7.70 [facility] Comment on above: Performed By: #### M DIFF #### [address] [address] BAND NEUTROPHIL 0.21 x10E9/L Normal 0.00 - 0.70 [facility] Comment on above: Performed By: #### M DIFF #### [address] [address] BASOPHIL 0.00 x10E9/L Normal 0.00 - 0.10 [facility] Comment on above: Performed By: #### M DIFF #### [address] [address] EOSINOPHIL 0.10 x10E9/L Normal 0.00 - 0.70 [facility] Comment on above: Performed By: #### M DIFF #### [address] [address] LYMPH-ATYPICAL 0.52 x10E9/L High 0.00 - 0.50 [facility] Comment on above: Performed By: #### M DIFF #### [address] [address] LYMPHOCYTE 1.56 x10E9/L Normal 1.20 - 4.80 [facility] Comment on above: Performed By: #### M DIFF #### [address] [address] MONOCYTE 0.42 x10E9/L Normal 0.10 - 1.00 [facility] Comment on above: Performed By: #### M DIFF #### [address] [address] SEG NEUTROPHIL 7.59 x10E9/L High 1.20 - 7.00 [facility] Comment on above: Performed By: #### M DIFF #### [address] [address] Provider Note - ED v2on 06-0 Provider Note - ED v2 Provider Note - ED v2: Chart Review: ED NOTES ED NOTES: 40-year-old female presents with nausea and vomiting. Patient was exposed to her brother in law yesterday who she says has Covid. Patient started vomiting yesterday and is having bile colored vomit today. Patient is taken some old Zofran at home with no improvement. Patient will have an IV established and be hydrated and treated with some Zofran for the nausea. The patient continued to have vomiting and received 12.5 mg of IV Phenergan with moderate improvement. She also received a liter of fluid. Patient feels symptoms may have been precipitated by some strawberries she ate last night and started symptoms 10 minutes afterward. Patient states she feels much better. Patient will be discharged and told to follow-up with her family medical doctor if any worsening return to ED. HISTORY OF PRESENTING ILLNESS FRIDA is a 40 year old Female and was seen by me at 17-Nov-2020 07:27 for a chief complaint of vomiting (Patient c/o vomiting x 2 days. Additional c/o headache & cough. States exposure to COVID+ family member.)(1). The historian is the patient. Triage Information: Most recent Vital Sign Value Date Temp (F): 96.9 11-17-2020 07:01 Temp (C): 36.1 11-17-2020 07:01 Heart Rate (beats/min): 92 11-17-2020 07:01 Respirations (breaths/min): 18 11-17-2020 07:01 SpO2 (%): 98 11-17-2020 07:01 BP Systolic (mm Hg): 130 11-17-2020 07:01 BP Diastolic (mm Hg): 74 11-17-2020 07:01 PAST MEDICAL HISTORY ATTESTATION: I have reviewed and confirmed nurse's/medic's notes for patient's medications, allergies, and medical, surgical, family and social history ALLERGIES/INTOLERANCES: No Known Allergies HEALTH HISTORY: No documented data. OUTPATIENT MEDICATIONS: Home Medications Review Status for Reconciliation: N/A Med Status: N/A No documented data. SIGNIFICANT EVENTS: No documented data. NARROW FABRICS WEAVER: Is : no(1) Is : no(1) REVIEW OF SYSTEMS GASTROINTESTINAL: POSITIVE for: abdominal pain, nausea and vomiting; All other systems reviewed and are negative RESULTS/VITAL SIGNS RESULTS: Radiology Results: Impression: Borderline size of the liver. No focal hepatic lesion identified. Negative gallbladder. No biliary dilation. Subvisualization of the pancreas. Ultrasound Gallbladder [Nov 17 2020 10:40AM] VITAL SIGNS: T PRBP SpO2O2(LPM) %FiO2 Method 17-Nov-2020 09:45:[id number] 100 room air, no respiratory support 17-Nov-2020 07:01:[id number] 98 PHYSICAL EXAM CONSTITUTIONAL: Well appearing, well nourished, awake, alert, oriented to person, place, time/situation and in no apparent distress. HENMT: Airway patent, ears with clear tympanic membranes bilaterally. Nasal mucosa clear. Mouth with normal mucosa. Throat has no vesicles, no oropharyngeal exudates and uvula is midline. Face with no lymph node enlargement. EYES: Clear bilaterally, pupils equal, round and reactive to light. CARDIOVASCULAR: Normal rate, regular rhythm. Heart sounds S1, S2. No murmurs, rubs or gallops. PMI non-displaced. RESPIRATORY: Breath sounds clear and equal bilaterally. GASTROINTESTINAL: Abdomen soft, non-distended, no rebound, no guarding. Bowel sounds normal in all 4 quadrants. Mild midepigastric pain. GENITOURINARY: No discharge, no lesions. MUSCULOSKELETAL: Spine appears normal, range of motion is not limited, no muscle or joint tenderness. NEUROLOGICAL: Alert and oriented, no focal deficits, no motor or sensory deficits. SKIN: Skin normal color for race, warm, dry and intact. No evidence of trauma. PSYCHIATRIC: Alert and oriented to person, place, time/situation. normal mood and affect. No apparent risk to self or others. HEME/LYMPH: No adenopathy or splenomegaly. No cervical, supraclavicular or inguinal lymphadenopathy. CLINICAL IMPRESSION Diagnosis/Annotation: ED Dx Name:Gastroenteritis, acute Code:K52.9 Disposition: discharged Type: home ATTESTATION Comments/Additional Findings: 1 take medication as prescribed 2 clear liquids 3 follow-up with family medical doctor as described, if symptoms worsen return to ED CRITICAL CARE TIME Is this a critically ill patient: no Electronic Signatures: Jenny Giang) (Signed 17-Nov-2020 11:27) Authored: ED Notes, HPI, PMH, ROS, PE, Results/Vital Signs, Clinical Impression, Attestation, Chart Review, Scores Last Updated: 17-Nov-2020 11:27 by Jenny Giang () References: 1. Data Referenced From Triage - ED 17-Nov-2020 07:01 Normal [facility] RED CELL MORPHOLOGYon 2020 RBC morphology finding Nom (Bld) NORMAL Normal [facility] Comment on above: Performed By: #### M ORP2 #### [facility] [address] [place] [address] Triage - EDon 11-17-2020 Triage - ED Quick Triage: Are You no Have You Given In The Last 6 Weeksno Are You Currently Breastfeedingno The patient and/or guardian verbally acknowledges placement for services into the following (when Urgent Care Service hours are operating):emergency department Chart Review: ARRIVAL INFORMATION Mode of Arrival: private vehicle CHIEF COMPLAINT FRIDA WIN is a Female patient with a chief complaint of vomiting (Patient c/o vomiting x 2 days. Additional c/o headache & cough. States exposure to COVID+ family member.). Triage Date/Time: 17-Nov-2020 07:01 SHAHRAM: 3V Pain Rating (0-10): 0 = None Vital Signs: Temperature: 96.9F ( 36.1C) Blood Pressure: 130/74 Mean: Heart Rate: 92 Respiratory Rate: 18 Pulse Oximetry: 98% Height: 5 feet 3 inches. 160.0 CM Weight: 185.1 pounds. Calculated 84.0 kg. (stated) Calculated BMI (kg/m2): 32.812 Calculated BSA (m2) 1.93 [place] Coma Scale: Best Eye Response: (E4) spontaneous Best Motor Response: (M6) obeys commands Best Verbal Response: (V5) oriented Alban Score: 15 Allergies: no Mask applied: yes [employer] History: hysterectomy Patient has homicidal thoughts: no Last Known Well: known Time Last Known Well Date/Time: 17-Nov-2020 07:05 Risk Screens Suicide Risk Screen In the Past Month: Have you wished you were or wished you could go to sleep and not wake up no In the Past Month: Have you had any actual thoughts of killing yourself no In Your Lifetime: Have you ever done anything, started to do anything, or prepared to do anything to end your life no Lozano Fall Scale Screening Has the patient fallen before (or is the patient in the ED as a result of a fall) has not had a fall Does the patient have an impaired gait does not have impaired gait Is the patient cognitively impaired not cognitively impaired Interventions: Lozano Fall Interventions: LOW INTERVENTIONS: *patient oriented to surroundings and call system, * patient/family falls education completed and documented, *patients fall status communicated during bedside handoff, *whiteboard updated, *mode of toileting discussed with patient, *bed in low position with brakes locked, *call light in reach, * non-skid footwear TRAVEL HISTORY Travel History Coronavirus Screening: no exposure or symptoms Travel Exposure History: NO travel to International locations in the past 30 days PAIN Pain Scale Used: NANCI Pain Rating (0-10): 0 = None Past Medical History: Past Medical History Reviewedyes Electronic Signatures: Jose Alejandro Fontenot (ERIK) (Signed 17-Nov-2020 07:06) Entered: Risk Screens, Pain, Travel History, Chart Review, Scores, Past Medical History Authored: Quick Triage, Risk Screens, Pain, Travel History, Chart Review, Scores, Past Medical History Last Updated: 17-Nov-2020 07:06 by Jose Alejandro Fontenot) [facility] MICROSCOPIC 11-17-2020 Mucus Ql (Urine sed) 3+ /LPF Normal [facility] Comment on above: Performed By: #### U AMIC #### [address] [address] RBC 1 /HPF Normal 0-5 [facility] Comment on above: Performed By: #### U AMIC #### [address] [address] SQUAMOUS EPITH. CELLS 6 /HPF Normal [facility] Comment on above: Performed By: #### U AMIC #### [address] [address] WBC 3 /HPF Normal 0-5 [facility] Comment on above: Performed By: #### U AMIC #### [address] [address] URINALYSISon 11-17-2020 Appearance (U) HAZY Normal CLEAR [facility] Comment on above: Performed By: #### U A #### [place] [address] Bilirubin Ql (U) Negative Normal NEGATIVE [facility] Comment on above: Performed By: #### U A #### [address] [address] Color (U) Yellow Normal STRAW,YELLO W [facility] Comment on above: Performed By: #### U A #### [address] [address] Glucose Ql (U) Negative Normal NEGATIVE [facility] Comment on above: Performed By: #### U A #### [address] [address] Hemoglobin Ql (U) Negative Normal NEGATIVE [facility] Comment on above: Performed By: #### U A #### [address] [address] Ketones Ql (U) Negative Normal NEGATIVE [facility] Comment on above: Performed By: #### U A #### [address] [address] Leukocyte esterase Test strip Ql (U) Negative Normal NEGATIVE [facility] Comment on above: Performed By: #### U A #### [address] [address] Nitrite Ql (U) Negative Normal NEGATIVE [facility] Comment on above: Performed By: #### U A #### [address] [address] pH (U) 7.0 [pH] Normal 5.0 - 8.0 [facility] Comment on above: Performed By: #### U A #### [address] [address] Protein Ql (U) 30(1+) Abnormal NEGATIVE [facility] Comment on above: Performed By: #### U A #### [address] [address] Specific gravity (U) [Rel density] 1.021 Normal 1.005 - 1.035 [facility] Comment on above: Performed By: #### U A #### [address] [address] Urobilinogen (U) [Mass/Vol] mg/dL Normal 0.0 - 1.9 [facility] Comment on above: Performed By: #### U A #### [address] [address] US GALLBLADDERon 11-17-2020 US GALLBLADDER Patient Name: FRIDA WIN STUDY: US GALLBLADDER; 11/17/2020 10:34 am INDICATION: stable. Nausea with vomiting. COMPARISON: None. ACCESSION NUMBER(S): [id number] ORDERING CLINICIAN: JENNY GIANG TECHNIQUE: Real-time sonographic evaluation of the right upper quadrant was performed. FINDINGS: LIVER: The liver is homogeneous in echotexture. No focal hepatic lesion is identified. Liver is borderline in size measuring 18.5 cm in sagittal dimension GALLBLADDER: The gallbladder is nondistended and demonstrates no evidence of gallstones, wall thickening or surrounding fluid. The gallbladder wall measures 3 mm. Sonographic Cho's sign is negative. BILIARY TREE: No intra or extrahepatic biliary dilatation is identified. The common bile duct measures 4 mm. PANCREAS: The pancreas is poorly visualized due to overlying bowel gas. RIGHT KIDNEY: Right kidney measures 12.4cm in length. No right hydronephrosis is seen. IMPRESSION: Borderline size of the liver. No focal hepatic lesion identified. Negative gallbladder. No biliary dilation. Sub visualization of the pancreas. Electronically signed by: SYDNIE ROSE MD [facility] CHEST PA AND LATERALon 02-13 CHEST PA AND LATERAL Final ReportAccession No: [id number] Performed: Feb 13 2018 9:12AMExamination: CHEST PA AND LATERALEXAMINATION: CHEST PA AND LATERALHISTORY: PhysicalTECHNIQUE: Frontal and lateral chest radiographs.COMPARISON: Chest radiographs dated 02/27/2012.FINDINGS: No focal consolidation, pleural effusion or pneumothorax. Thecardiomediastinal silhouette is normal in size. No acute osseousabnormality.IMPR ESSION:No acute cardiopulmonary process.Interpreting Physician: ESTELA LARIOS M.D.Trans: sfalk : cc: Normal [facility] Lipid Panelon 02-13-2018 Cholesterol in HDL mass conc 42 mg/dL Invalid Interpretation Code 40 - 59 mg/dL [facility] Cholesterol in LDL mass conc 90 mg/dL Invalid Interpretation Code 10 - 150 mg/dL [facility] Cholesterol in VLDL mass conc 19 mg/dL Invalid Interpretation Code 5 - 40 mg/dL [facility] Cholesterol mass conc 150 mg/dL Invalid Interpretation Code 100 - 199 mg/dL [facility] Cholesterol.total/Karlie sterol in HDL mass ratio 3.6 {ratio} Invalid Interpretation Code [facility] Comment on above: Female Coronary Hear t Disease Risk Factor (CHDRF): Average risk= 4.4 1/2 Average risk= 3.3 2 times Average risk= 7.1 Triglyceride mass conc 96 mg/dL Invalid Interpretation Code 25 - 120 mg/dL [facility] Cholesterol in HDL mass conc 42 mg/dL Normal 40-59 [facility] Comment on above: Performed By: #### L IPID ####Unless otherwise noted, all testing performed by [facility] [place], [place] [phone]: [id number] Director: Julio Olivares M.D. Cholesterol in LDL mass conc 90 mg/dL Normal 10-150 [facility] Comment on above: Performed By: #### L IPID ####Unless otherwise noted, all testing performed by [address] [phone]: [id number] Director: Julio Olivares M.D. Cholesterol in VLDL mass conc 19 mg/dL Normal 5-40 [facility] Comment on above: Performed By: #### L IPID ####Unless otherwise noted, all testing performed by [address] [phone]: [id number] Director: Julio Olivares M.D. Cholesterol mass conc 150 mg/dL Normal 100-199 [facility] Comment on above: Performed By: #### L IPID ####Unless otherwise noted, all testing performed by [address] [phone]: [id number] Director: Julio Olivares M.D. Cholesterol.total/Karlie sterol in HDL mass ratio 3.6 {ratio} Normal 3.2-5.0 [facility] Comment on above: Result Comment: Codya le Coronary Heart Disease Risk Factor (CHDRF):Average risk= 4.41/2 Average risk= 3.32 times Average risk= 7.1 Performed By: #### L IPID ####Unless otherwise noted, all testing performed by [address] [phone]: [id number] Director: Julio Olivares M.D. Triglyceride mass conc 96 mg/dL Normal 25-120 [facility] Comment on above: Performed By: #### L IPID ####Unless otherwise noted, all testing performed by [place] [address] [address], [place] [phone]: [id number] Director: Julio Olivares M.D. Vital Signs Date Time Vital Sign Value Performing Clinician Facility 12-08-2024 11:00-0400 Body temperature 98 [degF] Mela Walker INDUSTRIAL ENERGY ENGINEER-C Work Phone: [facility] 12-08-2024 11:00-0400 Diastolic blood pressure 57 mm[Hg] Mela Walker INDUSTRIAL ENERGY ENGINEER-C Work Phone: [phone] [place] [address] 12-08-2024 11:00-0400 Heart rate 89 /min Mela Walker INDUSTRIAL ENERGY ENGINEER-C Work Phone: [phone] [place] [address] 12-08-2024 11:00-0400 Respiratory rate 18 /min Mela Walker INDUSTRIAL ENERGY ENGINEER-C Work Phone: [phone] [place] [address] 12-08-2024 11:00-0400 SaO2% (BldA) [Mass fraction] 99 % Mela Walker INDUSTRIAL ENERGY ENGINEER-C Work Phone: [facility] 12-08-2024 11:00-0400 Systolic blood pressure 124 mm[Hg] Mela Walker INDUSTRIAL ENERGY ENGINEER-C Work Phone: [facility] 12-08-2024 07:11-0400 Body height 160.02 cm Mela Walker INDUSTRIAL ENERGY ENGINEER-C Work Phone: [facility] 12-08-2024 07:11-0400 Body mass index (BMI) [Ratio] 43.4 kg/m2 Mela Walker INDUSTRIAL ENERGY ENGINEER-C Work Phone: [facility] 12-08-2024 07:11-0400 Body weight 111.13 kg Mela Walker INDUSTRIAL ENERGY ENGINEER-C Work Phone: [facility] 10-14-2024 15:07-0400 Body mass index (BMI) [Ratio] 43.7 kg/m2 Mela Walker INDUSTRIAL ENERGY ENGINEER-C Work Phone: [facility] 10-14-2024 15:07-0400 Body weight 112.03 kg Mela Walker INDUSTRIAL ENERGY ENGINEER-C Work Phone: [facility] 10-14-2024 15:07-0400 Diastolic blood pressure 81 mm[Hg] Mela Walker INDUSTRIAL ENERGY ENGINEER-C Work Phone: [facility] 10-14-2024 15:07-0400 Systolic blood pressure 137 mm[Hg] Mela Walker INDUSTRIAL ENERGY ENGINEER-C Work Phone: [facility] 03-13-2024 13:55-0400 Body height 160 cm Mela Walker BULK FOLDER Work Phone: [facility] 03-13-2024 13:55-0400 Body mass index (BMI) [Ratio] 41.06 kg/m2 Mela Walker BULK FOLDER Work Phone: [facility] 03-13-2024 13:55-0400 Body temperature 98.29 [degF] Mela Walker BULK FOLDER Work Phone: [facility] 03-13-2024 13:55-0400 Body weight 105.14 kg Mela Walker BULK FOLDER Work Phone: [facility] 03-13-2024 13:55-0400 Diastolic blood pressure 81 mm[Hg] Mela Walker BULK FOLDER Work Phone: [facility] 03-13-2024 13:55-0400 Heart rate 86 /min Mela Walker BULK FOLDER Work Phone: [facility] 03-13-2024 13:55-0400 Respiratory rate 16 /min Mela Walker BULK FOLDER Work Phone: [facility] 03-13-2024 13:55-0400 SaO2% (BldA) [Mass fraction] 97 % Mela Walker BULK FOLDER Work Phone: [facility] 03-13-2024 13:55-0400 Systolic blood pressure 120 mm[Hg] Mela Walker BULK FOLDER Work Phone: [facility] 04-04-2023 10:32-0400 Body height 160 cm Mela Walker BULK FOLDER Work Phone: [facility] 04-04-2023 10:32-0400 Body mass index (BMI) [Ratio] 37.24 kg/m2 Mela Walker CNP Work Phone: [facility] 04-04-2023 10:32-0400 Body temperature 98.1 [degF] Mela Walker BULK FOLDER Work Phone: [facility] 04-04-2023 10:32-0400 Body weight 95.35 kg Mela Walker BULK FOLDER Work Phone: [facility] 04-04-2023 10:32-0400 Diastolic blood pressure 83 mm[Hg] Mela Walker BULK FOLDER Work Phone: [facility] 04-04-2023 10:32-0400 Heart rate 106 /min Mela Walker BULK FOLDER Work Phone: [facility] 04-04-2023 10:32-0400 SaO2% (BldA) [Mass fraction] 93 % Mela Walker BULK FOLDER Work Phone: [facility] 04-04-2023 10:32-0400 Systolic blood pressure 125 mm[Hg] Mela Walker CNP Work Phone: [facility] 03-22-2023 15:43-0400 Body height 160.[address] Priyanka Leonardo Work Phone: [facility] 03-22-2023 15:43-0400 Body mass index (BMI) [Ratio] 36.8 kg/m2 Dr. Priyanka Leonardo Work Phone: [facility] 03-22-2023 15:43-0400 Body weight 94.[address] Priyanka Leonardo Work Phone: [facility] 03-22-2023 15:43-0400 Diastolic blood pressure 80 mm[Hg] Dr. Priyanka Leonardo Work Phone: [facility] 03-22-2023 15:43-0400 Systolic blood pressure 122 mm[Hg] Dr. Priyanka Leonardo Work Phone: [facility] 07-19-2022 15:01-0500 Body height 160 cm Mela Walker CNP Work Phone: [facility] 07-19-2022 15:01-0500 Body mass index (BMI) [Ratio] 37.75 kg/m2 Mela Walker CNP Work Phone: [facility] 07-19-2022 15:01-0500 Body temperature 98.29 [degF] Mela Walker BULK FOLDER Work Phone: [facility] 07-19-2022 15:01-0500 Body weight 96.66 kg Mela Walker CNP Work Phone: [facility] 07-19-2022 15:01-0500 Diastolic blood pressure 80 mm[Hg] Mela Walker BULK FOLDER Work Phone: [facility] 07-19-2022 15:01-0500 Heart rate 106 /min Mela Walker CNP Work Phone: [facility] 07-19-2022 15:01-0500 Respiratory rate 16 /min Mela Walker CNP Work Phone: [facility] 07-19-2022 15:01-0500 SaO2% (BldA) [Mass fraction] 98 % Mela Walker BULK FOLDER Work Phone: [facility] 07-19-2022 15:01-0500 Systolic blood pressure 115 mm[Hg] Mela Walker BULK FOLDER Work Phone: [facility] 12-16-2021 00:08-0400 Body mass index (BMI) [Ratio] 37.6 kg/m2 [facility] Work Phone: 10-16-2021 00:22-0400 Body mass index (BMI) [Ratio] 37.6 kg/m2 [facility] Work Phone: 09-16-2021 00:21-0400 Body mass index (BMI) [Ratio] 37.6 kg/m2 INDUSTRIAL ENERGY ENGINEER-C Bethanie Martin Work Phone: [facility] Work Phone: 08-16-2021 00:20-0500 Body mass index (BMI) [Ratio] 37.6 kg/m2 [facility] Work Phone: 08-15-2021 23:20-0500 Body mass index (BMI) [Ratio] 37.6 kg/m2 INDUSTRIAL ENERGY ENGINEER-C Bethanie Redick Work Phone: [facility] Work Phone: 08-03-2021 15:12-0500 Body height 160 cm No Pcp Required [facility] 08-03-2021 15:12-0500 Body temperature 96.98 [degF] No Pcp Required [facility] 08-03-2021 15:12-0500 Diastolic blood pressure 67 mm[Hg] No Pcp Required [facility] 08-03-2021 15:12-0500 Heart rate 96 /min No Pcp Required [facility] 08-03-2021 15:12-0500 Respiratory rate 16 /min No Pcp Required [facility] 08-03-2021 15:12-0500 SaO2% (BldA) [Mass fraction] 96 % No Pcp Required [facility] 08-03-2021 15:12-0500 Systolic blood pressure 124 mm[Hg] No Pcp Required [facility] 07-18-2021 23:16-0500 Body mass index (BMI) [Ratio] 37.6 kg/m2 INDUSTRIAL ENERGY ENGINEER-C Bethanie Redick Work Phone: [facility] Work Phone: 06-26-2021 12:41-0500 Body temperature 97.3 [degF] INDUSTRIAL ENERGY ENGINEER-C Bethanie Redick Work Phone: [facility] Work Phone: 06-26-2021 12:41-0500 Diastolic blood pressure 80 mm[Hg] INDUSTRIAL ENERGY ENGINEER-C Bethanie Redick Work Phone: [facility] Work Phone: 06-26-2021 12:41-0500 Heart rate 108 /min INDUSTRIAL ENERGY ENGINEER-C Bethanie Redick Work Phone: [facility] Work Phone: 06-26-2021 12:41-0500 Respiratory rate 15 /min INDUSTRIAL ENERGY ENGINEER-C Bethanie Redick Work Phone: [facility] Work Phone: 06-26-2021 12:41-0500 SaO2% (BldA) [Mass fraction] 99 % INDUSTRIAL ENERGY ENGINEER-C Bethanie Redick Work Phone: [facility] Work Phone: 06-26-2021 12:41-0500 Systolic blood pressure 150 mm[Hg] INDUSTRIAL ENERGY ENGINEER-C Bethanie Redick Work Phone: [facility] Work Phone: 06-17-2021 23:10-0500 Body mass index (BMI) [Ratio] 37.6 kg/m2 INDUSTRIAL ENERGY ENGINEER-C Bethanie Redick Work Phone: [facility] Work Phone: 05-17-2021 23:06-0500 Body mass index (BMI) [Ratio] 37.6 kg/m2 INDUSTRIAL ENERGY ENGINEER-C Bethanie Redick Work Phone: [facility] Work Phone: 04-15-2021 08:07-0400 Body height 160 cm Melaulysses Walker BULK FOLDER Work Phone: [facility] 04-15-2021 08:07-0400 Body mass index (BMI) [Ratio] 38.6 kg/m2 Mela Walker BULK FOLDER Work Phone: [facility] 04-15-2021 08:07-0400 Body temperature 98.1 [degF] Mela Walker BULK FOLDER Work Phone: [facility] 04-15-2021 08:07-0400 Body weight 98.84 kg Mela Walker BULK FOLDER Work Phone: [facility] 04-15-2021 08:07-0400 Diastolic blood pressure 82 mm[Hg] Mela Walker BULK FOLDER Work Phone: [facility] 04-15-2021 08:07-0400 Heart rate 83 /min Mela Walker BULK FOLDER Work Phone: [facility] 04-15-2021 08:07-0400 Respiratory rate 16 /min Mela Walker BULK FOLDER Work Phone: [facility] 04-15-2021 08:07-0400 SaO2% (BldA) [Mass fraction] 97 % Mela Walker BULK FOLDER Work Phone: [facility] 04-15-2021 08:07-0400 Systolic blood pressure 117 mm[Hg] Mela Walker BULK FOLDER Work Phone: [facility] 12-08-2020 10:48-0400 Body height 160 cm Mela Walker BULK FOLDER Work Phone: [facility] 12-08-2020 10:48-0400 Body mass index (BMI) [Ratio] 38.3 kg/m2 Mela Walker BULK FOLDER Work Phone: [facility] 12-08-2020 10:48-0400 Body temperature 98.6 [degF] Mela Walker BULK FOLDER Work Phone: [facility] 12-08-2020 10:48-0400 Body weight 98.07 kg Mela Walker BULK FOLDER Work Phone: [facility] 12-08-2020 10:48-0400 Diastolic blood pressure 85 mm[Hg] Mela Walker BULK FOLDER Work Phone: [facility] 12-08-2020 10:48-0400 Heart rate 103 /min Mela Walker BULK FOLDER Work Phone: [facility] 12-08-2020 10:48-0400 Respiratory rate 16 /min Mela Walker BULK FOLDER Work Phone: [facility] 12-08-2020 10:48-0400 SaO2% (BldA) [Mass fraction] 98 % Mela Walker BULK FOLDER Work Phone: [facility] 12-08-2020 10:48-0400 Systolic blood pressure 128 mm[Hg] Mela Walker BULK FOLDER Work Phone: [facility] 11-17-2020 13:45-0400 Diastolic blood pressure 64 mm[Hg] No Pcp Required [facility] 11-17-2020 13:45-0400 Heart rate 85 /min No Pcp Required [facility] 11-17-2020 13:45-0400 Respiratory rate 16 /min No Pcp Required [facility] 11-17-2020 13:45-0400 SaO2% (BldA) [Mass fraction] 100 % No Pcp Required [facility] 11-17-2020 13:45-0400 Systolic blood pressure 124 mm[Hg] No Pcp Required [facility] 11-17-2020 09:01-0400 Body height 160 cm No Pcp Required [facility] 11-17-2020 09:01-0400 Body temperature 96.98 [degF] No Pcp Required [facility] 11-17-2020 09:01-0400 Body weight 84 kg No Pcp Required [facility] 06-01-2020 11:54-0500 BMI (Body Mass Index) 37.36 kg/m2 Barbara [facility] 06-01-2020 11:54-0500 Body Temperature 97.59 [degF] Barbara [facility] 06-01-2020 11:54-0500 Body weight 95.66 kg Barbara [facility] 06-01-2020 11:54-0500 BP Diastolic 84 mm[Hg] Barbara [facility] 06-01-2020 11:54-0500 BP Systolic 127 mm[Hg] Barbara [facility] 06-01-2020 11:54-0500 Height 160 cm [facility] 06-01-2020 11:54-0500 Pulse (Heart Rate) 98 /min [facility] 06-01-2020 11:54-0500 Pulse Oximetry 98 % Barbara [facility] 06-01-2020 11:54-0500 Respiratory Rate 18 /min Barbara [facility] 01-09-2020 10:23-0400 BMI (Body Mass Index) 36.88 kg/m2 Barbara [facility] 01-09-2020 10:23-0400 Body Temperature 97.81 [degF] Barbara [facility] 01-09-2020 10:23-0400 Body weight 94.44 kg Barbara [facility] 01-09-2020 10:23-0400 BP Diastolic 80 mm[Hg] Barbara Cruz [facility] 01-09-2020 10:23-0400 BP Systolic 116 mm[Hg] Barbara Cruz [facility] 01-09-2020 10:23-0400 Pulse (Heart Rate) 94 /min Barbara Cruz [facility] 01-09-2020 10:23-0400 Pulse Oximetry 98 % Barbara Cruz [facility] 01-09-2020 10:23-0400 Respiratory Rate 16 /min Barbara Cruz [facility] 06-20-2019 08:21-0500 BMI (Body Mass Index) 36.12 kg/m2 [facility] 08:21-0500 Body Temperature 97.9 [degF] [facility] 06-20-2019 08:21-0500 Body weight 92.49 kg [facility] 06-20-2019 08:21-0500 BP Diastolic 79 mm[Hg] [facility] 06-20-2019 08:21-0500 BP Systolic 131 mm[Hg] [facility] 06-20-2019 08:21-0500 Pulse (Heart Rate) 101 /min [facility] 06-20-2019 08:21-0500 Pulse Oximetry 96 % [facility] 06-20-2019 08:21-0500 Respiratory Rate 18 /min Barbara Cruz [facility] 02-21-2019 13:38-0400 BMI (Body Mass Index) 35.53 kg/m2 [facility] 02-21-2019 13:38-0400 Body Temperature 97.5 [degF] [facility] 02-21-2019 13:38-0400 Body weight 90.99 kg [facility] 02-21-2019 13:38-0400 BP Diastolic 79 mm[Hg] [facility] 02-21-2019 13:38-0400 BP Systolic 112 mm[Hg] [facility] 02-21-2019 13:38-0400 Height 160 cm [facility] 02-21-2019 13:38-0400 Pulse (Heart Rate) 84 /min [facility] 02-21-2019 13:38-0400 Pulse Oximetry 97 % Barbara [facility] 11-13-2018 14:34-0400 BMI (Body Mass Index) 33.8 kg/m2 Barbara [facility] 11-13-2018 14:34-0400 Body Temperature 98.1 [degF] [facility] 11-13-2018 14:34-0400 BP Diastolic 79 mm[Hg] Barbara [facility] 11-13-2018 14:34-0400 BP Systolic 119 mm[Hg] Barbara [facility] 11-13-2018 14:34-0400 Pulse (Heart Rate) 81 /min Barbara [facility] 11-13-2018 14:34-0400 Pulse Oximetry 98 % Barbara [facility] 11-13-2018 14:34-0400 Respiratory Rate 18 /min Barbara [facility] 11-13-2018 14:34-0400 Weight 90.72 kg Barbara [facility] 08-09-2018 08:24-0500 BMI (Body Mass Index) 34.22 kg/m2 Abrbara [facility] 08-09-2018 08:24-0500 Body Temperature 98.4 [degF] Barbara [facility] 08-09-2018 08:24-0500 BP Diastolic 82 mm[Hg] [facility] 08-09-2018 08:24-0500 BP Systolic 125 mm[Hg] [facility] 08-09-2018 08:24-0500 Height 163.8 cm [facility] 08-09-2018 08:24-0500 Pulse (Heart Rate) 92 /min [facility] 08-09-2018 08:24-0500 Pulse Oximetry 94 % [facility] 08-09-2018 08:24-0500 Respiratory Rate 18 /min [facility] 08-09-2018 08:24-[address] [facility] Encounters Encounter Date Encounter Type Care Provider Facility Start: 01-08-2025 End: 01-08-2025 Refill Mela Walker [facility] Work Phone: [facility] Comment on above: Attention deficit hy peractivity disorder (ADHD), predominantly inattentive type Start: 12-10-2024 ambulatory MELA WALKER [facility] Start: 12-08-2024 End: 12-08-2024 Emergency department patient visit Mela Walker [employer] ENGINE[employer]-C Work Phone: -Emergency Department Work Phone: Start: 10-14-2024 End: 10-14-2024 Patient encounter procedure Uyen Krys INDUSTRIAL ENERGY ENGINEER-C [facility] Work Phone: Start: 10-14-2024 End: 10-14-2024 ambulatory Mela Walker Facility[facility] Start: 10-13-2024 End: 10-13-2024 Refill Mela Walker BULK FOLDER Work Phone: [facility] Comment on above: Attention deficit hy peractivity disorder (ADHD), predominantly inattentive type Start: 09-10-2024 End: 09-10-2024 Telemedicine consultation with patient Mela Walker BULK FOLDER Work Phone: [facility] Comment on above: Attention deficit hy peractivity disorder (ADHD), predominantly inattentive type (Primary Dx); Depression, unspecified depression type Start: 09-10-2024 End: 09-10-2024 ambulatory MELA AMATO WALKER [facility] Start: 08-08-2024 End: 08-08-2024 Refill Mela Lima Walker BULK FOLDER Work Phone: [facility] Comment on above: Vitamin D deficiency ; Depression, unspecified depression type; Attention deficit hyperactivity disorder (ADHD), predominantly inattentive type Start: 07-30-2024 End: 07-30-2024 ambulatory Mela Walker Facility:[facility] Start: 07-24-2024 End: 07-24-2024 Refill Melaulysses Walker BULK FOLDER Work Phone: [facility] Comment on above: Attention deficit hy peractivity disorder (ADHD), predominantly inattentive type Start: 07-22-2024 End: 07-22-2024 ambulatory Mela Walker Facility:[facility] Start: 06-20-2024 End: 06-20-2024 Refill Mela Lima Walker BULK FOLDER Work Phone: [facility] Comment on above: Intractable migraine with aura without status migrainosus; Attention deficit hyperactivity disorder (ADHD), predominantly inattentive type Start: 05-26-2024 End: 05-26-2024 ambulatory Priyanka Leonardo Facility:[facility] Start: 03-25-2024 ambulatory MELA WALKER [facility] Start: 03-21-2024 End: 03-21-2024 ambulatory Mela Walker Facility:[facility] Start: 03-18-2024 ambulatory M[facility]AUlysses WALK[facility] Start: 03-13-2024 End: 03-13-2024 ambulatory MELAUlysses WALKER [facility] Start: 03-13-2024 End: 03-13-2024 Encounter for general adult medical examination without abnormal findings MELA WALKER [facility] Start: 03-13-2024 End: 03-13-2024 Patient encounter status Mela Walker BULK FOLDER Work Phone: [facility] Start: 03-13-2024 End: 03-13-2024 Periodic preventive med est patient 40-64yrs Mela Walker BULK FOLDER Work Phone: [facility] Comment on above: Well adult exam (Yuki lizzie Dx); Attention deficit hyperactivity disorder (ADHD), predominantly inattentive type; Therapeutic drug monitoring; Screening mammogram for breast cancer; Morbid obesity with BMI of 40.0-44.9, adult (HCC); Dyslipidemia, goal LDL below 100 Start: 03-13-2024 ambulatory Health Risk Assessment Facility:[facility] Start: 02-08-2024 End: 02-11-2024 Documentation procedure Mela Brodya Denise BULK FOLDER Work Phone: [facility] Start: 01-23-2024 End: 01-23-2024 ambulatory Kevin THOMAS Facility[facility] Start: 01-07-2024 End: 01-07-2024 Refill Mela Walker BULK FOLDER Work Phone: [facility] Comment on above: Attention deficit hy peractivity disorder (ADHD), predominantly inattentive type Start: 10-12-2023 End: 10-12-2023 Office outpatient visit 25 minutes Mela Walker BULK FOLDER Work Phone: [facility] Comment on above: Attention deficit hy peractivity disorder (ADHD), predominantly inattentive type; Depression, unspecified depression type; Intractable migraine with aura without status migrainosus Start: 10-03-2023 Refill Mela Limatony Wilkinskelsea lyons BULK FOLDER Work Phone: [facility] Comment on above: Attention deficit hy peractivity disorder (ADHD), predominantly inattentive type Start: 07-05-2023 End: 07-05-2023 Office outpatient visit 25 minutes Mela Walker BULK FOLDER Work Phone: [facility] Comment on above: Attention deficit hy peractivity disorder (ADHD), predominantly inattentive type; Vitamin D deficiency; Iron deficiency; Intractable migraine with aura without status migrainosus; Depression, unspecified depression type Start: 06-28-2023 End: 06-28-[address] Priyanka Leonardo Work Phone: [facility] Work Phone: Start: 06-28-2023 End: 06-28-[address] Priyanka Leonardo Work Phone: [facility] Work Phone: Start: 04-18-2023 End: 04-18-[address] Priyanka Leonardo Work Phone: [facility] Work Phone: Start: 04-04-2023 Encounter for genera l adult medical examination without abnormal findings MELA WALKER [facility] Start: 04-04-2023 End: 04-04-2023 Patient encounter status Mela Walker BULK FOLDER Work Phone: [facility] Start: 04-04-2023 End: 04-04-2023 Periodic preventive med est patient 40-64yrs Mela Walker BULK FOLDER Work Phone: [facility] Comment on above: Well adult exam (Yuki samuel Dx); Iron deficiency; Attention deficit hyperactivity disorder (ADHD), predominantly inattentive type Start: 03-22-2023 End: 03-22-[address] Priyanka Leonardo Work Phone: [facility] Work Phone: Start: 03-21-2023 End: 04-17-[address] Priyanka Leonardo Work Phone: [facility] Work Phone: Start: 03-21-2023 End: 04-17-[address] [facility] Start: 03-05-2023 End: 03-17-[address] [facility] Work Phone: Start: 03-05-2023 End: 03-17-2023 Discharged Recurring [facility] Start: 03-05-2023 [facility] Start: 01-30-2023 End: 01-30-[address] [facility] Work Phone: Start: 01-30-2023 End: 01-30-2023 Patient encounter procedure [facility] Ul[facility]ound Work Phone: Start: 01-23-2023 End: 01-23-2023 Patient encounter procedure [facility] Work Phone: Start: 10-18-2022 End: 10-18-2022 Office outpatient visit 25 minutes Mela Walker BULK FOLDER Work Phone: [facility] Comment on above: Attention deficit hy peractivity disorder (ADHD), predominantly inattentive type; Mood disorder (HCC) Start: 08-08-2022 End: 08-08-[address] [facility] Work Phone: Start: 08-08-2022 End: 08-08-2022 Patient encounter procedure [facility] Start: 07-19-2022 End: 07-19-2022 Office outpatient visit 25 minutes Mela Walker BULK FOLDER Work Phone: [facility] Comment on above: Mood disorder (HCC) (Primary Dx); Intractable migraine with aura without status migrainosus; Depression, unspecified depression type; Attention deficit hyperactivity disorder (ADHD), predominantly inattentive type; Vitamin D deficiency; Screening for thyroid disorder; Encounter for lipid screening for cardiovascular disease; Iron deficiency; Well adult exam Start: 07-19-2022 End: 07-19-2022 Patient encounter status Mela Walker BULK FOLDER Work Phone: [facility] Start: 06-30-2022 End: 07-18-[address] [facility] Work Phone: Start: 06-30-2022 End: 07-18-2022 Discharged Recurring [facility] Start: 06-28-2022 Refill Mela lyons BULK FOLDER Work Phone: [facility] Comment on above: Attention deficit hy peractivity disorder (ADHD), predominantly inattentive type Start: 04-18-2022 Patient encounter status Mela Walker BULK FOLDER Work Phone: [facility] Start: 02-10-2022 End: 02-10-2022 Office outpatient visit 25 minutes Mela Walker BULK FOLDER Work Phone: [facility] Comment on above: Depression, unspecif ied depression type (Primary Dx); Attention deficit hyperactivity disorder (ADHD), predominantly inattentive type; Intractable migraine with aura without status migrainosus; Screening mammogram for breast cancer Start: 01-11-2022 End: 01-15-2022 Discharged Recurring [facility] Start: 12-14-2021 End: 12-15-2021 Discharged Recurring [facility] Start: 09-16-2021 End: 10-15-2021 Discharged Recurring INDUSTRIAL ENERGY ENGINEER-C Bethanie Redick Work Phone: [facility] Start: 09-08-2021 End: 09-15-2021 Discharged Recurring INDUSTRIAL ENERGY ENGINEER-C [facility]ick [facility] Start: 08-15-2021 End: 08-15-2021 Discharged Recurring INDUSTRIAL ENERGY ENGINEER-C Bethanie Redick [facility] Start: 08-03-2021 End: 08-03-2021 Emergency department patient visit Deonte Dsouza [place] [id number] Start: 07-14-2021 End: 07-18-2021 Discharged Recurring INDUSTRIAL ENERGY ENGINEER-C Bethanie Redick [facility] Start: 07-05-2021 Orders Only Mela lyons BULK FOLDER Work Phone: [facility] Comment on above: Vitamin D deficiency (Primary Dx); Iron deficiency Start: 07-01-2021 Patient encounter procedure INDUSTRIAL ENERGY ENGINEER-C Bethanie Redick Work Phone: [facility] Start: 06-26-2021 End: 06-26-2021 Patient encounter procedure INDUSTRIAL ENERGY ENGINEER-C Bethanie Redick Work Phone: [facility] Start: 06-16-2021 End: 06-17-2021 Discharged Recurring INDUSTRIAL ENERGY ENGINEER-C Bethanie Redick Work Phone: [facility] Start: 06-06-2021 End: 06-06-2021 Office outpatient visit 15 minutes Mela Walker BULK FOLDER Work Phone: [facility] Comment on above: Attention deficit hy peractivity disorder (ADHD), predominantly inattentive type Start: 04-15-2021 End: 09-10-2024 Patient encounter status Mela Walker BULK FOLDER Work Phone: [facility] Start: 04-15-2021 End: 04-15-2021 Periodic preventive med est patient 18-39 yrs Mela Walker BULK FOLDER Work Phone: [facility] Comment on above: Well adult exam (Yuik lizzie Dx) Start: 03-10-2021 End: 03-10-2021 Office outpatient visit 15 minutes Mela Walker BULK FOLDER Work Phone: [facility] Comment on above: Attention deficit hy peractivity disorder (ADHD), predominantly inattentive type Start: 12-08-2020 End: 12-08-2020 Office outpatient visit 25 minutes Mela Aamto Denise BULK FOLDER Work Phone: [facility] Comment on above: Attention deficit hy peractivity disorder (ADHD), unspecified ADHD type (Primary Dx); ANISH (generalized anxiety disorder) Start: 11-17-2020 End: 11-17-2020 Emergency department patient visit Jenny Giang [facility] Emergency 13 Start: 07-16-2020 End: 07-16-2020 Refill Barbara Cruz Work Phone: [facility] Comment on above: Depression, unspecif ied depression type Start: 06-01-2020 End: 06-01-2020 Office outpatient visit 15 minutes Barbara Cruz Work Phone: [facility] Comment on above: Depression, unspecif ied depression type (Primary Dx); Attention deficit hyperactivity disorder (ADHD), unspecified ADHD type; Mood disorder (HCC) Start: 04-28-2020 End: 04-28-2020 Documentation procedure Barbara Cruz Work Phone: [facility] Start: 01-09-2020 End: 01-09-2020 Office outpatient visit 15 minutes Barbara Cruz Work Phone: [facility] Comment on above: Well adult exam (Yuki samuel Dx); Attention deficit hyperactivity disorder (ADHD), unspecified ADHD type; Screening for lipid disorders Start: 06-20-2019 End: 06-20-2019 Office outpatient visit 15 minutes Barbara Cruz Work Phone: [facility] Comment on above: Attention deficit hy peractivity disorder (ADHD), unspecified ADHD type Start: 02-21-2019 End: 02-21-2019 Office outpatient visit 15 minutes Barbara Cruz Work Phone: [facility] Comment on above: Attention deficit hy peractivity disorder (ADHD), unspecified ADHD type Start: 11-14-2018 End: 11-18-2018 Patient encounter procedure BARBARA CRUZ [facility] Start: 11-13-2018 End: 11-13-2018 Office outpatient visit 15 minutes Barbara Cruz Work Phone: [facility] Comment on above: Attention deficit hy peractivity disorder (ADHD), unspecified ADHD type (Primary Dx); Encounter for well adult exam without abnormal findings; Screening for lipid disorders; Screening for thyroid disorder; Depression, unspecified depression type Start: 08-09-2018 End: 08-09-2018 Office outpatient new 45 minutes Barbara Castillo Work Phone: [facility] Comment on above: Encounter for well a dult exam without abnormal findings (Primary Dx); Attention deficit hyperactivity disorder (ADHD), unspecified ADHD type Start: 02-13-[address] [facility] Start: 02-13-2018 End: 02-13-2018 Patient encounter Abisai Wyman Work Phone: [facility] Procedures Date Procedure Procedure Detail Performing Clinician Start: 12-08-2024 Plain chest X-ray Mela Walker INDUSTRIAL ENERGY ENGINEER-C Work Phone: Start: 12-08-2024 Estimated creatinine clearance Mela Walker INDUSTRIAL ENERGY ENGINEER-C Work Phone: Start: 03-21-2024 Mammography Mela lyons BULK FOLDER Work Phone: Start: 03-13-2024 Drug tst prsmv instr mnt chem analyzers pr date Mela Walker BULK FOLDER Work Phone: Start: 03-21-[address] Priyanka Leonardo Work Phone: Start: 03-05-2023 Viral antigen assay Start: 01-30-2023 Ultrasonography of breast Start: 01-23-2023 End: 01-23-2023 Screening mammography Start: 09-15-2021 End: 09-15-2021 Viral antigen assay INDUSTRIAL ENERGY ENGINEER-C Bethanie Martin Work Phone: Start: 08-15-2021 SARS-CoV-2 Antigen (Rapid) INDUSTRIAL ENERGY ENGINEER-C Bethanie Redick Work Phone: Start: 07-14-2021 SARS-CoV-2 Antigen (Rapid) INDUSTRIAL ENERGY ENGINEER-C Bethanie Redick Work Phone: Start: 06-14-2021 SARS-CoV-2 Antigen (Rapid) INDUSTRIAL ENERGY ENGINEER-C Bethanie Redick Work Phone: Start: 02-13-2018 End: 02-13-2018 Lipid panel Abisai Erickson Wyman Work Phone: Viral antigen assay Viral antigen assay Plan of Treatment Date Care Activity Detail Author Start: 03-21-2025 Screening for malign ant neoplasm of breast Mammogram [facility] Start: 03-17-2025 End: 03-17-2025 Patient encounter procedure 03/17/2025 2:20 PM EDT Office Visit [facility] Physician [facility] [address] [place] [phone] Mela Walker, BULK FOLDER [address] [facility] [place] [address] [facility] Start: 03-13-2025 Depression screening using PHQ-9 (Patient Health Questionnaire 9) score Depression Screening/Follow-Up (PHQ-2/9) [facility] Start: 03-13-2025 History and physical examination, annual for health maintenance Wellness Visit [facility] Start: 02-16-2025 Influenza vaccination [facility] Start: 12-08-2024 [facility] Start: 12-08-2024 [facility] Start: 09-10-2024 End: 09-10-2024 Telemedicine consultation with patient 09/10/2024 9:40 AM EDT Telemedicine [facility] [address] [place] [phone] Mela Walker, BULK FOLDER [address] [place] [address] [facility] Start: 04-07-2024 COVID-19 Vaccine ( season) COVID-19 Vaccine ( season) [facility] Comment on above: Postponed from 02/16 (Treatment Not Available) Start: 04-04-2024 History and physical examination, annual for health maintenance Wellness Visit [facility] Start: 04-04-2024 Pneumococcal Vaccine : Ped or At-Risk (1 - PCV) Pneumococcal Vaccine: Ped or At-Risk (1 - PCV) [facility] Comment on above: Postponed from 08/18 (Patient Refused) Start: 04-04-2024 Pneumococcal Vaccine : Ped or At-Risk (1 of 2 - PCV) Pneumococcal Vaccine: Ped or At-Risk (1 of 2 - PCV) [facility] Comment on above: Postponed from 08/18 (Patient Refused) Start: 04-04-2024 Tetanus vaccination Tetanus: Every 1 0yrs [facility] Comment on above: Postponed from 06/19 (Patient Refused) Start: 03-06-2024 End: 03-06-2024 Patient encounter procedure 03/06/2024 3:20 PM EDT Office Visit [facility] [address] [place] [phone] Mela Walker, BULK FOLDER [address] [place] [address] [facility] Start: 02-17-2024 COVID-19 Vaccine ( season) COVID-19 Vaccine ( season) [facility] Start: 02-17-2024 COVID-19 Vaccine ( season) COVID-19 Vaccine ( season) [facility] Start: 02-17-2024 Influenza vaccination Influenza Vacc ine (#1) [facility] Start: 01-24-2024 Screening for malign ant neoplasm of breast Mammogram [facility] Start: 10-12-2023 End: 10-12-2023 Telemedicine consultation with patient 10/12/2023 1:40 PM EDT Telemedicine [facility] [address] [place] [phone] Mela Walker, BULK FOLDER [address] [place] [id number] [facility] Start: 04-05-2023 History and physical examination, annual for health maintenance Wellness Visit [facility] Start: 02-10-2023 Tetanus vaccination Tetanus: Every 1 0yrs [facility] Comment on above: Postponed from 06/19 (Patient Refused) Start: 10-18-2022 End: 10-18-2022 Telemedicine consultation with patient 10/18/2022 Telemedicine Primary Care Mela Walker, BULK FOLDER [address] [place] [phone] [facility] Start: 07-19-2022 End: 07-19-2022 Patient encounter procedure 07/19/2022 Office Visit Primary Care Mela Walker, MARYA [address] [place] [id number] [facility] Start: 04-15-2022 History and physical examination, annual for health maintenance Wellness Visit [facility] Start: 04-15-2022 Pneumococcal Vaccine : Ped or At-Risk (1 - PCV) Pneumococcal Vaccine: Ped or At-Risk (1 - PCV) [facility] Comment on above: Postponed from 08/18 (Patient Refused) Start: 04-15-2022 Pneumococcal Vaccine : Ped or At-Risk (1 of 2 - PPSV23) Pneumococcal Vaccine: Ped or At-Risk (1 of 2 - PPSV23) [facility] Comment on above: Postponed from 08/18 (Patient Refused) Start: 02-16-2022 Influenza vaccination Sequenti al Influenza Vaccine (#1) [facility] Start: 12-08-2021 Depression screening using PHQ-9 (Patient Health Questionnaire 9) score Depression Screening/Follow-Up (PHQ-2/9) [facility] Start: 10-08-2021 Depression Remission Assessment (PHQ9) Depression Remission Assessment (PHQ9) [facility] Start: 2021 Screening for malign ant neoplasm of breast Mammogram [facility] Start: 06-19-2021 [facility]anus [facility] Start: 06-06-2021 End: 06-06-2021 Telemedicine consultation with patient 06/06/2021 Telemedicine Primary Care Mela Walker, BULK FOLDER [address] [place] [address] [facility] Start: 05-27-2021 COVID-19 Vaccine (4 - Booster for Pfizer series) COVID-19 Vaccine (4 - Booster for Pfizer series) [facility] Start: 03-10-2021 End: 03-10-2021 Telemedicine consultation with patient 03/10/2021 Telemedicine Primary Care Mela Walker, MARYA [address] [place] [address] [phone] [facility] Start: 02-16-2021 Influenza vaccination [facility] Start: 11-17-2020 End: 11-18-2021 Sodium Chloride 0.9% IV Bolus . ; DOSE = 1,000 mL OnceInfuse over 1 hour(s) Start: 17-Nov-2020 End: 17-Nov-2021 Ordered: 17-Nov-[address] [facility] Start: 11-17-2020 End: 11-18-2021 Sodium Chloride 0.9% Infusion . ; IV Bag Volume = 1,000 mL Run at: 125 mL/hr IntraVenous Start: 17-Nov-2020 End: 17-Nov-2021 Ordered: 17-Nov-[address] [facility] Start: 11-08-2020 Depression Remission Assessment (PHQ9) Depression Remission Assessment (PHQ9) [facility] Start: 08-20-2020 End: 08-20-2020 Office Visit 08/20/2020 Office Visit Primary Care Barbara Cruz, BULK FOLDER [address] [place] [address] [phone] [facility] Start: 04-09-2020 End: 04-09-2020 Office Visit 04/09/2020 Office Visit Primary Care Barbara Cruz, BULK FOLDER [address] [place] [address] [phone] [facility] Start: 02-17-2020 Influenza vaccinatio n given Sequential Influenza Vaccine (#1) [facility] Start: 09-19-2019 End: 09-19-2019 Office Visit 09/19/2019 Office Visit Primary Care Barbara Cruz, BULK FOLDER [address] [place] [address] [phone] [facility] Start: 05-26-2019 End: 05-26-2019 Office Visit 05/26/2019 Office Visit Primary Care Barbara Cruz, BULK FOLDER [address] [place] [address] [phone] [facility] Start: 02-16-2019 Influenza vaccinatio n given SEQUENTIAL INFLUENZA VACCINE (#1) [facility] Start: 02-12-2019 End: 02-12-2019 Office Visit 02/12/2019 Office Visit Primary Care Barbara Cruz, BULK FOLDER [address] [place] [address] [phone] [facility] Start: 11-08-2018 End: 11-08-2018 Office Visit 11/08/2018 Office Visit Primary Care Barbara Castillo, BULK FOLDER [address] [place] [address] [phone] [facility] Start: 08-19-2011 Screening for malign ant neoplasm of cervix HPV/Cotest [facility] Start: 08-19-1999 Hepatitis C antibody , confirmatory test Hepatitis C Screening [facility] Start: 08-19-1999 Hepatitis C screening Hepatitis C Sc reening [facility] Start: 1996 HIV screening HIV Screening [facility] Start: 08-19-1987 Pneumococcal Vaccine : Ped or At-Risk (1 - PCV) Pneumococcal Vaccine: Ped or At-Risk (1 - PCV) [facility] Start: 08-19-1987 Pneumococcal Vaccine : Ped or At-Risk (1 of 2 - PPSV23) Pneumococcal Vaccine: Ped or At-Risk (1 of 2 - PPSV23) [facility] Start: 1984 History and physical examination, annual for health maintenance Wellness Visit [facility] Start: 1981 Depression screening using PHQ-9 (Patient Health Questionnaire 9) score DEPRESSION SCREENING (PHQ9) [facility] End: 11-14-2019 Complete blood count with white cell differential, manual CBC and Differential Lab Routine Encounter for well adult exam without abnormal findings 1 Occurrences starting 11/13/2018 until 11/14/2019 [facility] Comment on above: 1 Occurrences starti ng 11/13/2018 until 11/14/2019 End: 01-08-2021 Complete blood count with white cell differential, manual CBC and Differential Lab Routine Well adult exam 1 Occurrences starting 01/09/2020 until 01/08/2021 [facility] Comment on above: 1 Occurrences starti ng 01/09/2020 until 01/08/2021 End: 07-19-2023 Complete blood count with white cell differential, manual CBC and Differential Lab Routine Well adult exam 1 Occurrences starting 07/19/2022 until 07/19/2023 [facility] Comment on above: 1 Occurrences starti ng 07/19/2022 until 07/19/2023 End: 11-14-2019 Comprehensive metabolic 2000 panel Comprehensive Metabolic Panel Lab Routine Encounter for well adult exam without abnormal findings 1 Occurrences starting 11/13/2018 until 11/14/2019 [facility] Comment on above: 1 Occurrences starti ng 11/13/2018 until 11/14/2019 End: 01-08-2021 Comprehensive metabolic 2000 panel Comprehensive Metabolic Panel Lab Routine Well adult exam 1 Occurrences starting 01/09/2020 until 01/08/2021 [facility] Comment on above: 1 Occurrences starti ng 01/09/2020 until 01/08/2021 End: 07-19-2023 Comprehensive metabolic 2000 panel - Serum or Plasma Comprehensive Metabolic Panel Lab Routine Well adult exam 1 Occurrences starting 07/19/2022 until 07/19/2023 [facility] Work Phone: Comment on above: 1 Occurrences starti ng 07/19/2022 until 07/19/2023 End: 07-19-2023 Iron measurement Iron Study with Ferritin Lab Routine Iron deficiency Well adult exam 1 Occurrences starting 07/19/2022 until 07/19/2023 [facility] Comment on above: 1 Occurrences starti ng 07/19/2022 until 07/19/2023 End: 11-14-2019 Lipid 1996 panel Lipid Panel Lab Routine Screening for lipid disorders 1 Occurrences starting 11/13/2018 until 11/14/2019 [facility] Comment on above: 1 Occurrences starti ng 11/13/2018 until 11/14/2019 End: 01-08-2021 Lipid 1996 panel Lipid Panel Lab Routine Screening for lipid disorders 1 Occurrences starting 01/09/2020 until 01/08/2021 [facility] Comment on above: 1 Occurrences starti ng 01/09/2020 until 01/08/2021 End: 07-19-2023 Lipid 1996 panel - Serum or Plasma Lipid Panel Lab Routine Encounter for lipid screening for cardiovascular disease Well adult exam 1 Occurrences starting 07/19/2022 until 07/19/2023 [facility] Comment on above: 1 Occurrences starti ng 07/19/2022 until 07/19/2023 End: 04-12-2023 MG Breast - bilateral Screening Mammography Screening [facility] Routine Screening mammogram for breast cancer 1 Occurrences starting 02/10/2022 until 04/12/2023 [facility] Work Phone: Comment on above: 1 Occurrences starti ng 02/10/2022 until 04/12/2023 End: 05-13-2025 MG Breast - bilateral Screening Mammography Screening [facility] Routine Screening mammogram for breast cancer 1 Occurrences starting 03/13/2024 until 05/13/2025 [facility] Work Phone: Comment on above: 1 Occurrences starti ng 03/13/2024 until 05/13/2025 Patient referral [facility] Work Phone: End: 07-19-2023 Thyrotropin [Units/volume] in Serum or Plasma TSH Lab Routine Screening for thyroid disorder Well adult exam 1 Occurrences starting 07/19/2022 until 07/19/2023 [facility] Comment on above: 1 Occurrences starti ng 07/19/2022 until 07/19/2023 End: 11-14-2019 Thyrotropin Qn TSH with Reflex Free T4 Lab Routine Screening for thyroid disorder 1 Occurrences starting 11/13/2018 until 11/14/2019 [facility] Comment on above: 1 Occurrences starti ng 11/13/2018 until 11/14/2019 End: 07-19-2023 Thyroxine (T4) free [Mass/volume] in Serum or Plasma T4, Free Lab Routine Screening for thyroid disorder Well adult exam 1 Occurrences starting 07/19/2022 until 07/19/2023 [facility] Comment on above: 1 Occurrences starti ng 07/19/2022 until 07/19/2023 End: 07-19-2023 Vitamin D, 25-hydroxy measurement Vitamin D, Total, 25-OH Lab Routine Vitamin D deficiency Well adult exam 1 Occurrences starting 07/19/2022 until 07/19/2023 [facility] Comment on above: 1 Occurrences starti ng 07/19/2022 until 07/19/2023 Immunizations Immunization Date Immunization Notes Care Provider Tiffany avera [facility] 04-03-2024 influenza, seasonal, injectable, preservative free Mela Walker INDUSTRIAL ENERGY ENGINEER-C Work Phone: [facility] 03-26-2023 influenza, injectabl e, quadrivalent, preservative free Dr. Priyanka Leonardo Work Phone: [facility] 03-26-2023 influenza virus vaccine, unspecified formulation Mela Walker BULK FOLDER Work Phone: [facility] 05-08-2022 influenza virus vaccine, unspecified formulation Mela Walker BULK FOLDER Work Phone: [facility] 04-22-2022 influenza, injectabl e, quadrivalent, preservative free [facility] 04-22-2022 influenza, seasonal, injectable [facility] 05-08-2021 influenza, injectabl e, quadrivalent, preservative free [facility] 05-08-2021 influenza, seasonal, injectable INDUSTRIAL ENERGY ENGINEER-C Bethanie Martin Work Phone: [facility] Work Phone: 05-08-2021 influenza, seasonal, injectable, preservative free Mela Walker BULK FOLDER Work Phone: [facility] 04-01-2021 Covid (Pfizer) IND[employer]RIAL ENERGY ENGINEER-C Bethanie goddard Work Phone: [facility] 07-13-2020 Covid (Pfizer) [facility] 06-22-2020 Covid (Pfizer) [facility] 03-15-2020 influenza, injectabl e, quadrivalent, preservative free [facility] 03-15-2020 influenza, seasonal, injectable INDUSTRIAL ENERGY ENGINEER-C Bethanie Redick Work Phone: [facility] Work Phone: 03-15-2020 influenza, seasonal, injectable, preservative free Mela Walker BULK FOLDER Work Phone: [facility] 03-27-2019 influenza, injectabl e, quadrivalent, preservative free [facility] 03-27-2019 influenza, seasonal, injectable INDUSTRIAL ENERGY ENGINEER-C Bethanie Redick Work Phone: [facility] Work Phone: 03-27-2019 influenza, seasonal, injectable, preservative free Mela Walker BULK FOLDER Work Phone: [facility] 06-18-2015 diphtheria, tetanus toxoids and acellular pertussis vaccine [facility] 09-13-2011 hepatitis B vaccine, pediatric or pediatric/adolescent dosage [facility] 03-15-2011 hepatitis B vaccine, pediatric or pediatric/adolescent dosage [facility] 02-07-2011 hepatitis B vaccine, pediatric or pediatric/adolescent dosage [facility] 02-01-2011 tetanus toxoid, redu yarely diphtheria toxoid, and acellular pertussis vaccine, adsorbed [facility] 07-13-1993 measles, mumps and rubella virus vaccine [facility] 03-10-1987 diphtheria, tetanus toxoids and pertussis vaccine [facility] 03-10-1987 trivalent poliovirus vaccine, live, oral [facility] 09-13-1983 diphtheria, tetanus toxoids and pertussis vaccine [facility] 09-13-1983 measles, mumps and rubella virus vaccine [facility] 09-13-1983 trivalent poliovirus vaccine, live, oral [facility] 04-13-1982 diphtheria, tetanus toxoids and pertussis vaccine [facility] 1981 diphtheria, tetanus toxoids and pertussis vaccine [facility] 1981 trivalent poliovirus vaccine, live, oral [facility] 1981 diphtheria, tetanus toxoids and pertussis vaccine Barbara Cruz [facility] 1980 trivalent poliovirus vaccine, live, oral Barbara Cruz [facility] Payers Date Payer Category Payer Self-pay [id number] 2022 Managed Care (privat e) or private health insurance (indemnity), not otherwise specified [employer] [id number] 2022 Private Health Insurance [id number] 2019 Unknown [id number] [id number]. [id number] 2019 Unknown 2019 Unknown [id number] 2016 Unknown [id number] [id number]. [id number] 2016 Unknown [id number] 1981 Unknown [id number] 2.16.840.1.210247.3.579.2. 903 1981 Unknown [id number] 2.16.840.1.695538.3.579.2. 903 1981 Unknown [id number] 2.16.840.1.374698.3.579.2. 903 1981 Unknown [id number] 2.840.1.655771.3.579.2. 903 1981 Unknown [id number] 2.840.1.893020.3.579.2. 903 1981 Unknown [id number] .840.1.269886.3.579.2. 903 1981 Unknown [id number] 2.840.1.521008.3.579.2. 903 Unknown [id number] Unknown [id number] Unknown [id number] .840.1.877180.3.579.2. 462 Unknown [id number] 08.03.830.1.389675.3.579.2. 462 Unknown [id number] .0.1.435222.3.579.2. 462 Unknown [id number] 840.1.763532.3.579.2. 462 Unknown [id number] 2.840.1.819421.3.579.2. 462 Unknown [id number] 840.1.427802.3.579.2. 462 Unknown [id number] 08.03.830.1.037748.3.579.2. 462 Unknown [id number] 08.03.830.1.811639.3.579.2. 462 Unknown [id number] 08.03.830.1.784381.3.579.2. 462 Social History Date Type Detail Facility Tobacco smoking stat [facility] Unknown if ever smoked [facility] Start: 1980 Sex Assigned At Not on file [facility] Start: 04-18-1999 End: 07-19-2022 Tobacco smoking status NMIS Current every day smoker [facility] Start: 04-18-1999 End: 01-17-2024 History of tobacco use Cigarette Smoker [facility] Start: 08-09-2018 End: 02-09-2022 Cigarettes smoked current (pack per day) - Reported [facility] Start: 08-08-2018 End: 02-09-2022 History SDOH Alcohol Frequency 2 [facility] Start: 08-09-2018 End: 02-09-2022 History SDOH Social Connections Phone 4 [facility] Start: 08-09-2018 End: 02-09-2022 History SDOH Social Connections Latter-Day 1 [facility] Start: 08-09-2018 End: 02-09-2022 History SDOH Social Connections Living 5 [facility] Start: 08-09-2018 End: 02-09-2022 History SDOH Physical Activity DPW 0 [facility] Start: 02-23-2019 End: 09-10-2024 Alcohol intake Current drinker of alcohol (finding) [facility] Start: 01-30-2022 End: 07-18-2022 Exposure to SARS-CoV-2 (event) Not sure [facility] Start: 01-11-2020 End: 03-13-2024 Tobacco use and exposure Never used [facility] Start: 06-26-2021 End: 04-18-2023 Tobacco smoking consumption unknown [facility] Start: 07-21-[address] [facility] Start: 1980 Sex Assigned At Female [facility] Start: 02-09-2022 History SDOH Social Connections Living 8 [facility] Start: 02-09-2022 End: 04-04-2023 Humiliation, Afraid, Rape, and Kick questionnaire [HARK] [facility] Within the last year , have you been afraid of your partner or ex-partner? No [facility] Are you now , , , , never or living with a partner? Living with partner [facility] How often to you hav e a drink containing alcohol? Never [facility] How many standard dr inks containing alcohol do you have on a typical day? Patient does not drink [facility] How hard is it for y ou to pay for the very basics like food, housing, medical care, and heating Not very hard [facility] Do you feel stress - tense, restless, nervous, or anxious, or unable to sleep at night because your mind is troubled all the time - these days [OSQ] Rather much [facility] (I/We) worried katya er (my/our) food would run out before (I/we) got money to buy more. Never true [facility] Start: 08-09-2018 Gender identity Identifies as female gender (finding) [facility] Start: 08-09-2018 Sexual orientation Heterosexual (finding) [facility] Start: 03-13-2024 Tobacco smoking status NHIS Ex-smoker [facility] Start: 04-18-1999 End: 01-17-2024 History of tobacco use Current smoker [facility] Start: 12-08-2024 Tobacco smoking status NMIS Current Light tobacco smoker [facility] Goals Date Patient Goal Desired Activity /State Mental Status Date Assessment Result Facility 12-08-2024 Cognitive function Awake;Alert;A ppropriate;Fol lows Commands [facility] Work Phone: Clinical Notes 12-08-2020 to 12-08-2024 Note Date & Type Note Facility 12-08-2024 Discharge summary [facility] 12-08-2024 Radiology Diagnostic study note [facility] Services [address], [place] [address] Chest 1 View (Portable) MR#: [id number] Acct: [id number] Name: FRIDA WIN Rep #: [id number] : 1980 F 44 From: Abisai Morgan MD PCP: FILIBERTO Cooper Status: REG ER Study:Chest 1 View (Portable) Date of Exam: 12/08/24 Exam# [id number] Ordering Dr: Ky Beckett DO PROCEDURE: CHEST 1 VIEW (PORTABLE) 12/08/2024 REASON FOR EXAM: LIGHTHEADED TECHNIQUE: Frontal view of the chest. COMPARISON: Chest x-ray 07/22/2019. RAD/Chest 1 View (Portable) IMPRESSION: No evidence of pneumoperitoneum. Chronic lung changes are seen, but no acute pneumonic process is clearly appreciated. No pleural effusion or pneumothorax is seen. The cardiomediastinal silhouette is within the normal range, and unchanged. No acute osseous process is seen. Reading Location: [place] [address] CC: FILIBERTO Walker; Dr. Deonte Beckett, DO ~ Associate Doctor: Signed [facility] 10-14-2024 Evaluation note Diagnosis Onset Date Resolution Women's annual routine gynecological examination acute October 14, 2024 3:02pm [facility] Work Phone: 1(147) 520-872603-26-2025 Evaluation + Plan note* Assessment & Plan Note - Mela Walker CNP - 09/10/2024 11:47 AM EDTAssociated Problem(s): Depression As discussed within your appointment today, you are doing well on sertraline. I would like you to continue to take your medication(s) as ordered. If medication refills are needed, they have been sentto your pharmacy. [id number] Evaluation + Plan note* Assessment & Plan Note - Mela Walker CNP - 09/10/2024 11:47 AM EDTAssociated Problem(s): ADHD I have ordered a 90 [...] supply, follow-up in the office as scheduled. [id number] Miscellaneous Notes* Assessment & Plan Note - Mela Walker CNP - 09/10/2024 11:47 AM EDTAssociated Problem(s): Depression As discussed within your appointment today, you are doing well on sertraline. I would like you to continue to take your medication(s) as ordered. If medication refills are needed, they have been sentto your pharmacy. * Assessment & Plan Note - Mela Walker CNP - 09/10/2024 11:47 AM EDT Associated Problem(s): ADHD I have ordered a [...] the office as scheduled. documented in this [id number] History of Present illness Narrative* Mela Walker CNP - 09/10/2024 9:40 AM EDT OFFICE VISIT PROGRESS NOTE Frida Win is a 44 y.o. female with a past medical history of Patient Active Problem List Diagnosis ADHD Hidradenitis suppurativa ANISH (generalized anxiety disorder) Depression Mood disorder Intractable migraine with aura without status migrainosus Vitamin D deficiency Iron deficiency Morbid obesity with BMI of 40.0-44.9, adult (HCC) Dyslipidemia, goal LDL below 100 who presents for a video visit for a follow up on ADHD. Patient is doing well and denies complaintsat this time. ADHD- Symptoms began (when what age) Medication: Adderall 30mg XR twice a day. She states that she does not feel like this medication ishelping much anymore. 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 [...] medications: 76-100% Health Maintenance Topic Date Due Tetanus: Every 10yrs 06/19/2021 Influenza Vaccine (1) 02/17/2024 COVID-19 Vaccine ( season) 2024 Depression Screening/Follow-Up (PHQ-2/9) 03/13/2025 Wellness Visit 03/13/2025 Mammogram 03/21/2025 Pneumococcal Vaccine: Ped or At-Risk Aged Out Hepatitis C Screening Discontinued Pap Smear Discontinued [...] of children: 3 Tobacco Use Smoking status: Former Current packs/day: 0.00 Average packs/day: 0.5 packs/day for 24.7 years (12.4 ttl pk-yrs) Types: Cigarettes Start date: 04/18/1999 Quit date: 01/17/2024 Years since quittin.6 Smokeless tobacco: Never Vaping Use Vaping status: Never Used Substance and Sexual Activity Alcohol use: Yes Drug use: Never Sexual activity: Yes Partners: Male control/protection: Surgical Social Drivers of Health Financial Resource Strain: Low Risk [...] 4 days Stress: Stress Concern Present (02/09/2022) [employer] [place] [employer] - Occupational Stress Questionnaire Feeling of Stress : Rather much Social Connections: Moderately Isolated (02/09/2022) Social Connection and Isolation Panel [NHANES] Frequency of Communication with Friends and Family: More than three times a week Frequency of Social Gatherings with Friends and Family: Once a week Attends [employer] Services: Never Active Member of Clubs or [...] Clavulanic Acid Penicillins Patient's Medications New Prescriptions LISDEXAMFETAMINE (VYVANSE) 40 MG CAPSULE Take 1 (one) capsule (40 mg total) by mouth every morning . LISDEXAMFETAMINE (VYVANSE) 40 MG CAPSULE Take 1 (one) capsule (40 mg total) by mouth every morning Start: 10/08/24. LISDEXAMFETAMINE (VYVANSE) 40 MG CAPSULE Take 1 (one) capsule (40 mg total) by mouth every morning Start: 11/05/24. Previous Medications CLONIDINE HCL (CATAPRES) 0.1 MG TABLET Take 1 (one) tablet (0.1 mg total) by mouth nightly . ERGOCALCIFEROL (ERGOCALCIFEROL) 1,250 MCG (50,000 UNIT) CAPSULE Take 1 (one) capsule (50,000 Units total) by mouth once a week . LAMOTRIGINE (LAMICTAL) 100 MG TABLET Take 1 (one) tablet (100 mg total) by mouth daily . ONDANSETRON (ZOFRAN) 4 MG TABLET Take 1 (one) tablet (4 mg total) by mouth every 8 (eight) hours asneeded for nausea . PANTOPRAZOLE (PROTONIX) 40 MG TABLET Take 1 (one) tablet (40 mg total) by mouth daily . RIMEGEPANT (NURTEC ODT) 75 MG ODT Dissolve 1 (one) tablet (75 mg total) on top of tongue daily as needed . SULFAMETHOXAZOLE-TRIMETHOPRIM (BACTRIM DS,SEPTRA DS) 800-160 MG PER TABLET Take 1 (one) tablet by mouth 2 (two) times a day . TOPIRAMATE (TOPAMAX) 25 MG TABLET Take 25mg in the AM, and 50mg in the PM . Modified Medications Modified Medication Previous Medication SERTRALINE (ZOLOFT) 100 MG TABLET sertraline (ZOLOFT) 100 MG tablet Take 1 (one) tablet (100 mg total) by mouth daily . Take 1 (one) tablet (100 mg total) by mouth daily . Discontinued Medications DEXTROAMPHETAMINE-AMPHETAMINE (ADDERALL XR) 30 MG 24 HR CAPSULE Take 1 (one) capsule (30 mg total) by mouth 2 (two) times a day Start: 04/10/24. DEXTROAMPHETAMINE-AMPHETAMINE (ADDERALL XR) 30 MG 24 HR CAPSULE Take 1 (one) capsule (30 mg total) by mouth 2 (two) times a day Start: 05/08/24. DEXTROAMPHETAMINE-AMPHETAMINE (ADDERALL XR) 30 MG 24 HR CAPSULE Take 1 (one) capsule (30 mg total) by mouth 2 (two) times a day . PREDNISONE (DELTASONE) 10 MG TABLET Take 4 tablets po x 3 day, then 3 tablets x 3 days, then 2 tablets x 3 days, then 1 tablet x 3 days. . SEMAGLUTIDE, WEIGHT LOSS, (WEGOVY) 0.25 MG/0.5 ML PEN Inject 0.5 mL (0.25 mg total) under the skin every 7 days . Review of Systems Review [...] were no vitals filed for this visit. BP Readings from Last 3 Encounters: 03/13/24 120/81 04/04/23 125/83 07/19/22 115/80 Wt Readings from Last 3 Encounters: 03/13/24 105.1 kg (231 lb 12.8 oz) 04/04/23 95.3 kg (210 lb 3.2 oz) 07/19/22 96.7 kg (213 lb 1.6 oz) There is no height or weight on file to calculate BMI. Physical Exam Physical Exam Vitals reviewed. Constitutional: Appearance: Normal appearance. She is well-developed. HENT: Head: Normocephalic. Right Ear: External ear normal. Left Ear: External ear normal. Nose: Nose normal. Eyes: General: Lids are normal. Pulmonary: Effort: Pulmonary effort is normal. Musculoskeletal: General: Normal range of motion. Skin: [...] Judgment normal. OARRS/NARxCHECK Report Received and Assessed: Mela Walker CNP on 09/10/2024 9:57 AM Date controlled substance agreement signed: 02/10/2022 Date of last drug screen: 03/13/2024 The 10-year ASCVD risk score (Vandana LOWE, et al., 2019) is: 0.4% Values used to calculate the score: Age: 44 years Sex: Female Is Non- : No Diabetic: No Tobacco smoker: No Systolic Blood Pressure: 120 mmHg Is BP treated: No HDL Cholesterol: 56 mg/dL Total Cholesterol: 167 mg/dL Assessment/Plan Problem List Items Addressed This [...] in the office as scheduled. Relevant Medications lisdexamfetamine (VYVANSE) 40 MG capsule lisdexamfetamine (VYVANSE) 40 MG capsule (Start on 10/08/2024) lisdexamfetamine (VYVANSE) 40 MG capsule (Start on 11/05/2024) sertraline (ZOLOFT) 100 MG tablet Depression As discussed within your appointment today, you are doing well on sertraline. I would like you to continue to take your medication(s) as ordered. If medication refills are needed, they have been sentto your pharmacy. Relevant Medications lisdexamfetamine (VYVANSE) 40 MG capsule lisdexamfetamine (VYVANSE) 40 MG capsule (Start on 10/08/2024) lisdexamfetamine (VYVANSE) 40 MG capsule (Start on 11/05/2024) sertraline (ZOLOFT) 100 MG tablet I am managing Frida Win for complex chronic condition(s) serving as the focal point for thepatient's care for consistency and continuity over time. Goals None For any new medications prescribed today, patient was educated about indications for the medication, how to take the medication and potential side effects of the medications. documented in this [id number] NoteOFFICE VISIT PROGRESS NOTE Frida Win is a 44 y.o. female with a past medical history of Patient Active Problem List Diagnosis ADHD Hidradenitis suppurativa ANISH (generalized anxiety disorder) Depression Mood disorder Intractable migraine with aura without status migrainosus Vitamin D deficiency Iron deficiency Morbid obesity with BMI of 40.0-44.9, adult (HCC) Dyslipidemia, goal LDL below 100 who presents for a video visit for a follow up on ADHD. Patient is doing well and denies complaints at this time. ADHD- Symptoms began (when what age) Medication: Adderall 30mg XR twice a day. She states that she does not feel like this medication is helping much anymore. 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 [...] medications: 76-100% Health Maintenance Topic Date Due Tetanus: Every 10yrs 06/19/2021 Influenza Vaccine (1) 02/17/2024 COVID-19 Vaccine (2023- season) 2024 Depression Screening/Follow-Up (PHQ-2/9) 03/13/2025 Wellness Visit 03/13/2025 Mammogram 03/21/2025 Pneumococcal Vaccine: Ped or At-Risk Aged Out Hepatitis C Screening Discontinued Pap Smear Discontinued [...] of children: 3 Tobacco Use Smoking status: Former Current packs/day: 0.00 Average packs/day: 0.5 packs/day for 24.7 years (12.4 ttl pk-yrs) Types: Cigarettes Start date: 04/18/1999 Quit date: 01/17/2024 Years since quittin.6 Smokeless tobacco: Never Vaping Use Vaping status: Never Used Substance and Sexual Activity Alcohol use: Yes Drug use: Never Sexual activity: Yes Partners: Male control/protection: Surgical Social Drivers of Health Financial Resource Strain: Low Risk [...] 4 days Stress: Stress Concern Present (02/09/2022) [place] [employer] - Occupational Stress Questionnaire Feeling of Stress : Rather much Social Connections: Moderately Isolated (02/09/2022) Social Connection and Isolation Panel [NHANES] Frequency of Communication with Friends and Family: More than three times a week Frequency of Social Gatherings with Friends and Family: Once a week Attends Anglican Services: Never Active Member of Clubs or Organizations: No Attends Club or Organization Meetings: Never Marital Status: Living with partner Housing Stability: Low Risk (02/09/2022) Pattie (more content not included)...[facility]09-26-2024 Evaluation + Plan note* Assessment & Plan Note - Mela Walker, BULK FOLDER - 03/13/2024 3:24 PM EDTAssociated Problem(s): ADHD I have ordered a 90 day supply of your Adderall. This is a controlled substance which is regulated by the Federal government. To have this medication refilled, you must be seen in the office every 90days. You are also required to have a Controlled Substance Agreement signed and on file, as well asa urine drug screen - these need to be completed yearly. Continue current medications, Controlled Substance Agreement is on file and an OAR[place] report was checked today, you were given a 3 months supply, follow-up in the office as scheduled. [id number] Evaluation + Plan note* Assessment & Plan Note - Mela Walker CNP - 03/13/2024 3:24 PM EDTAssociated Problem(s): Dyslipidemia, goal LDL below 100 I have sent Tacho into your pharmacy, this medication is a once a week injectable that is used to help reduce your appetite and insulin resistance. This medication will more than likely require prior authorization. It may be required that you try a different medication such as metformin prior to this medication being approved. If this medication is approved by your insurance, and you start it - appointments will be needed monthly to document weight loss while the medication is titrated to the maintenance dose. [facility] [id number] Evaluation + Plan note* Assessment & Plan Note - Mela Walker CNP - 03/13/2024 3:24 PM EDTAssociated Problem(s): Screening mammogram for breast cancer Today I have ordered her mammogram for you to have completed. Please call and schedule this at yourearliest convenience. If an order was placed today, the hospital will contact you to schedule an appointment. [place] [id number] Evaluation + Plan note* Assessment & Plan Note - Mela Walker CNP - 03/13/2024 3:24 PM EDTAssociated Problem(s): Well adult exam Doing well, denies complaints at this time. Health maintenance updated and reviewed with patient. It is recommended that you complete at least 150 minutes of cardiovascular activity weekly. [id number] Miscellaneous Notes* Assessment & Plan Note - Mela Walker CNP - 03/13/2024 3:24 PM EDTAssociated Problem(s): ADHD I have ordered a 90 day supply of your Adderall. This is a controlled substance which is regulated by the Federal government. To have this medication refilled, you must be seen in the office every 90days. You are also required to have a Controlled Substance Agreement signed and on file, as well asa urine drug screen - these need to be completed yearly. Continue current medications, Controlled Substance Agreement is on file and an OAR[place] report was checked today, you were given a 3 months supply, follow-up in the office as scheduled. * Assessment & Plan Note - Mela Walker CNP - 03/13/2024 3:24 PM EDT Associated Problem(s): Dyslipidemia, goal LDL below 100 I have sent Tacho into your pharmacy, this medication is a once a week injectable that is used to help reduce your appetite and insulin resistance. This medication will more than likely require prior authorization. It may be required that you try a different medication such as metformin prior to this medication being approved. If this medication is approved by your insurance, and you start it - appointments will be needed monthly to document weight loss while the medication is titrated to the maintenance dose. * Assessment & Plan Note - Mela Walker CNP - 03/13/2024 3:24 PM EDT Associated Problem(s): Screening mammogram for breast cancer Today I have ordered her mammogram for you to have completed. Please call and schedule this at yourearliest convenience. If an order was placed today, the hospital will contact you to schedule an appointment. * Assessment & Plan Note - Mela Walker CNP - 03/13/2024 3:24 PM EDT Associated Problem(s): Well adult exam Doing well, denies complaints at this time. Health maintenance updated and reviewed with patient. It is recommended that you complete at least 150 minutes of cardiovascular activity weekly. documented in this [id number] History of Present illness Narrative* Mela Walker CNP - 03/13/2024 1:40 PM EDT Images from the original note were not included. OUTPATIENT WELL ADULT PROGRESS NOTE Frida Win is a 43 y.o. female and is here for a preventative care visit. Patient's medical and surgical history was updated, as well as family's medical history. Health maintenance was reviewed and updated Patient is a 43 y.o. female with a past medical history of Patient Active Problem List Diagnosis ADHD Hidradenitis suppurativa ANISH (generalized anxiety disorder) Depression Mood disorder (HCC) Well adult exam Intractable migraine with aura without status migrainosus Screening mammogram for breast cancer Vitamin D deficiency Iron deficiency Therapeutic drug monitoring Morbid obesity with BMI of 40.0-44.9, adult (HCC) Dyslipidemia, goal LDL below 100 who presents to the office today for a well adult exam. Patient is doing well and denies complaintsat this time. 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 Appetite: good Last Dose: yesterday Medication is keep safe within the home where the patient resides with children HPI Health Maintenance reviewed - up to date. OBGYN HX - OB History 3 Para 3 Term 3 AB 0 Living 3 SAB 0 IAB Ectopic Multiple Live Births 3 No LMP recorded. Patient has had a hysterectomy. Patient has periods (heavy, regular, painful): not applicable Sexually active ( control): yes, male Any breast concerns? denies Health Maintenance Due Topic Date Due Depression Screening/Follow-Up (PHQ-2/9) 12/08/2021 Mammogram 01/24/2024 Influenza Vaccine (1) 02/17/2024 COVID-19 Vaccine ( season) 2024 Wellness Visit 04/04/2024 There are no preventive care reminders to display for this patient. Not applicable Mammogram Due Date or Overdue Date Topic Date Due Mammogram 01/24/2024 Last Mammogram completed 01/23/2023, BiRads 0 - ultrasound completed - patient will have ultrasound faxed to office. The following portions of the patient's history were reviewed and updated as appropriate: allergies, current medications, past family history, past medical history, past social history, past surgicalhistory and problem list. Past Medical History: Diagnosis Date ADD (attention deficit disorder) 11 years old Anxiety 2019 Depression 1999 Dyslipidemia, goal LDL below 100 03/13/2024 Hidradenitis suppurativa Past Surgical History: Procedure Laterality Date HYSTERECTOMY 2007 Social History Socioeconomic History Marital status: Life Partner Number of children: 3 Tobacco Use Smoking status: Former Current packs/day: 0.00 Average packs/day: 0.5 packs/day for 24.7 years (12.4 ttl pk-yrs) Types: Cigarettes Start date: 04/18/1999 Quit date: 01/17/2024 Years since quittin.1 Smokeless tobacco: Never Vaping Use Vaping status: [...] 4 days Stress: Stress Concern Present (02/09/2022) [employer] [place] [employer] - Occupational Stress Questionnaire Feeling of Stress : Rather much Social Connections: Moderately Isolated (02/09/2022) Social Connection and Isolation Panel [NHANES] Frequency of Communication with Friends and Family: More than three times a week Frequency of Social Gatherings with Friends and Family: Once a week Attends Anglican Services: Never Active Member of Clubs or [...] Date HYSTERECTOMY 2007 Patient's Medications New Prescriptions PANTOPRAZOLE (PROTONIX) 40 MG TABLET Take 1 (one) tablet (40 mg total) by mouth daily . SEMAGLUTIDE, WEIGHT LOSS, (WEGOVY) 0.25 MG/0.5 ML PEN Inject 0.5 mL (0.25 mg total) under the skin every 7 days . Previous Medications CLONIDINE HCL (CATAPRES) 0.1 MG TABLET Take 1 (one) tablet (0.1 mg total) by mouth nightly . ERGOCALCIFEROL (ERGOCALCIFEROL) 1,250 MCG (50,000 UNIT) CAPSULE Take 1 (one) capsule (50,000 Units total) by mouth once a week . LAMOTRIGINE (LAMICTAL) 100 MG TABLET Take 1 (one) tablet (100 mg total) by mouth daily . ONDANSETRON (ZOFRAN) 4 MG TABLET Take 1 (one) tablet (4 mg total) by mouth every 8 (eight) hours asneeded for nausea . POLYSACCHARIDE IRON COMPLEX (IFEREX) 150 MG IRON CAPSULE Take 1 (one) capsule (150 mg total) by mouth 2 (two) times a day . RIMEGEPANT (NURTEC ODT) 75 MG ODT Dissolve 1 (one) tablet (75 mg total) on top of tongue daily as needed . SERTRALINE (ZOLOFT) 100 MG TABLET Take 1 (one) tablet (100 mg total) by mouth daily . TOPIRAMATE (TOPAMAX) 25 MG TABLET Take 25mg in the AM, and 50mg in the PM . Modified Medications Modified Medication Previous Medication DEXTROAMPHETAMINE-AMPHETAMINE (ADDERALL XR) 30 MG 24 HR CAPSULE dextroamphetamine-amphetamine (ADDERALL XR) 30 MG 24 hr capsule Take 1 (one) capsule (30 mg total) by mouth 2 (two) times a day . Take 1 (one) capsule (30 mg total) by mouth 2 (two) times a day . DEXTROAMPHETAMINE-AMPHETAMINE (ADDERALL XR) 30 MG 24 HR CAPSULE dextroamphetamine-amphetamine (ADDERALL XR) 30 MG 24 hr capsule Take 1 (one) capsule (30 mg total) by mouth 2 (two) times a day Start: 04/10/24. Take 1 (one) capsule (30 mg total) by mouth 2 (two) times a day . DEXTROAMPHETAMINE-AMPHETAMINE (ADDERALL XR) 30 MG 24 HR CAPSULE dextroamphetamine-amphetamine (ADDERALL XR) 30 MG 24 hr capsule Take 1 (one) capsule (30 mg total) by mouth 2 (two) times a day Start: 05/08/24. Take 1 (one) capsule (30 mg total) by mouth 2 (two) times a day . Discontinued Medications DEXTROAMPHETAMINE-AMPHETAMINE (ADDERALL) 10 MG TABLET Take 1 (one) tablet (10 mg total) by mouth daily . Objective: BP 120/81 (BP Location: Right arm, Patient Position: Sitting, BP Cuff Size: X- large Adult) Pulse 86 Temp 98.3 F (36.8 C) (Temporal) Resp 16 Ht 5' 3 Wt 105.1 kg (231 lb 12.8 oz) SpO2 97% BMI 41.06 kg/m Review of Systems Review of Systems [...] agitation. The patient is not nervous/anxious. Vitals: 03/13/24 1355 BP: 120/81 BP Location: Right arm Patient Position: Sitting BP Cuff Size: X-large Adult Pulse: 86 Resp: 16 Temp: 98.3 F (36.8 C) TempSrc: Temporal SpO2: 97% Weight: 105.1 kg (231 lb 12.8 oz) Height: 5' 3 Body mass index is 41.06 kg/m . The 10-year ASCVD risk score (Vandana LOWE, et al., 2019) is: 0.5% Values used to calculate the score: Age: 43 years Sex: Female Is Non- : No Diabetic: No Tobacco smoker: No Systolic Blood Pressure: 120 mmHg Is BP treated: No HDL Cholesterol: 47 mg/dL Total Cholesterol: 156 mg/dL Physical Exam Physical Exam Vitals and nursing note reviewed. Constitutional: Appearance: Normal appearance. She is well-developed and well-groomed. She is obese. HENT: Head: Normocephalic. Right Ear: Tympanic membrane, ear canal and external ear normal. Left Ear: Tympanic membrane, ear canal and external ear normal. Nose: Nose normal. Mouth/Throat: Lips: [place]le. Mouth: Mucous membranes are moist. Pharynx: Oropharynx is clear. Eyes: General: Lids are normal. Conjunctiva/sclera: Conjunctivae normal. Pupils: Pupils are equal, round, and reactive to light. Neck: Thyroid: No thyroid mass or thyromegaly. Vascular: No carotid bruit or JVD. Cardiovascular: Rate and Rhythm: Normal rate and regular rhythm. Pulses: Normal pulses. Heart sounds: Normal heart sounds. Pulmonary: Effort: Pulmonary effort is normal. Breath sounds: Normal breath sounds. Abdominal: General: Abdomen is flat. Palpations: Abdomen is soft. Musculoskeletal: General: Normal range of motion. Cervical back: Normal range of motion. Lymphadenopathy: Head: Right side of head: No submental, submandibular, tonsillar, preauricular or posterior auricular adenopathy. Left side of head: No submental, submandibular, tonsillar, preauricular or posterior auricular adenopathy. Skin: General: Skin is warm and dry. Capillary Refill: Capillary refill takes less than 2 seconds. Neurological: General: No focal deficit present. Mental Status: She is alert and oriented to person, place, and time. Motor: Motor function is intact. Coordination: Coordination is intact. Gait: Gait is intact. Psychiatric: Attention and Perception: Attention and perception normal. Mood and Affect: Mood and affect normal. Behavior: Behavior normal. Behavior is cooperative. Thought Content: Thought content normal. Cognition and Memory: Cognition normal. Judgment: Judgment normal. Assessment/Plan Problem List Items Addressed This Visit Other ADHD I have ordered a 90 day supply of your Adderall. This is a controlled substance which is regulated by the Federal government. To have this medication refilled, you must be seen in the office every 90days. You are also required to have a Controlled Substance Agreement signed and on file, as well asa urine drug screen - these need to be completed yearly. Continue current medications, Controlled Substance Agreement is on file and an OARRS report was checked today, you were given a 3 months supply, follow-up in the office as scheduled. Relevant Medications dextroamphetamine-amphetamine (ADDERALL XR) 30 MG 24 hr capsule dextroamphetamine-amphetamine (ADDERALL XR) 30 MG 24 hr capsule (Start on 04/10/2024) dextroamphetamine-amphetamine (ADDERALL XR) 30 MG 24 hr capsule (Start on 05/08/2024) Other Relevant Orders Drugs of Abuse Screen, Urine Well adult exam - Primary Doing well, denies complaints at this time. Health maintenance updated and reviewed with patient. It is recommended that you complete at least 150 minutes of cardiovascular activity weekly. Screening mammogram for breast cancer Today I have ordered her mammogram for you to have completed. Please call and schedule this at yourearliest convenience. If an order was placed today, the hospital will contact you to schedule an appointment. Relevant Orders Mammography Screening Ortiz Bilateral Therapeutic drug monitoring Relevant Orders Drugs of Abuse Screen, Urine Morbid obesity with BMI of 40.0-44.9, adult (HCC) Relevant Medications semaglutide, weight loss, (Wegovy) 0.25 mg/0.5 mL Pen Dyslipidemia, goal LDL below 100 I have sent Wegovy into your pharmacy, this medication is a once a week injectable that is used to help reduce your appetite and insulin resistance. This medication will more than likely require prior authorization. It may be required that you try a different medication such as metformin prior to this medication being approved. If this medication is approved by your insurance, and you start it - appointments will be needed monthly to document weight loss while the medication is titrated to the maintenance dose. Relevant Medications semaglutide, weight loss, (Wegovy) 0.25 mg/0.5 mL Pen Goals None Electronically signed by: Mela Walker C.N.P 03/13/24 3:24 PM General Patient Counseling Given: --Nutrition: Stressed importance of moderation in sodium/caffeine intake, saturated fat and cholesterol, caloric balance, sufficient intake of fresh fruits, vegetables, fiber, calcium, iron, and 1 mgof folate supplement per day (for females capable [...] Shingles vaccines recommended after the age of 50,Pneumonia vaccines due after the age of 65. --Discussed benefits of screening mammograms, pap smears, Dexa Scan (screening of osteoporosis) andcolonoscopy. documented in this [id number] NoteOUTPATIENT WELL ADULT PROGRESS NOTE Frida Win is a 43 y.o. female and is here for a preventative care visit. Patient's medical and surgical history was updated, as well as family's medical history. Health maintenance was reviewed and updated Patient is a 43 y.o. female with a past medical history of Patient Active Problem List Diagnosis ADHD Hidradenitis suppurativa ANISH (generalized anxiety disorder) Depression Mood disorder (HCC) Well adult exam Intractable migraine with aura without status migrainosus Screening mammogram for breast cancer Vitamin D deficiency Iron deficiency Therapeutic drug monitoring Morbid obesity with BMI of 40.0-44.9, adult (HCC) Dyslipidemia, goal LDL below 100 who presents to the office today for a well adult exam. Patient is doing well and denies complaints at this time. 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 Appetite: good Last Dose: yesterday Medication is keep safe within the home where the patient resides with children HPI Health Maintenance reviewed - up to date. OBGYN HX - OB History 3 Para 3 Term 3 AB 0 Living 3 SAB 0 IAB Ectopic Multiple Live Births 3 No LMP recorded. Patient has had a hysterectomy. Patient has periods (heavy, regular, painful): not applicable Sexually active ( control): yes, male Any breast concerns? denies Health Maintenance Due Topic Date Due Depression Screening/Follow-Up (PHQ-2/9) 12/08/2021 Mammogram 01/24/2024 Influenza Vaccine (1) 02/17/2024 COVID-19 Vaccine (2022- season) 2024 Wellness Visit 04/04/2024 There are no preventive care reminders to display for this patient. Not applicable Mammogram Due Date or Overdue [...] disorder) 11 years old Anxiety 2019 Depression 1999 Dyslipidemia, goal LDL below 100 03/13/2024 Hidradenitis suppurativa Past Surgical History: Procedure Laterality Date HYSTERECTOMY 2007 Social History Socioeconomic History Marital status: Life Partner Number of children: 3 Tobacco Use Smoking status: Former Current packs/day: 0.00 Average packs/day: 0.5 packs/day for 24.7 years (12.4 ttl pk-yrs) Types: Cigarettes Start date: 04/18/1999 Quit date: 01/17/2024 Years since quittin.1 Smokeless tobacco: Never Vaping Use Vaping status: [...] 4 days Stress: Stress Concern Present (02/09/2022) [place] [employer] - Occupational Stress Questionnaire Feeling of Stress : Rather much Social Connections: Moderately Isolated (02/09/2022) Social Connection and Isolation Panel [NHANES] Frequency of Communication with Friends and Family: More than three times a week Frequency of Social Gatherings with Friends and Family: Once a week Attends [employer] Services: Never Active Member of Clubs or [...] Hypertension Mother Mental illness Mother Depression Mother A (more content not included)...[facility] [id number] NotePatient requesting medication be sent to [facility]. AUTHENTICATED BY MELA WALKER, ON 02/11/2024 07:54:43[facility] 02-11-2024 History of Present illness Narrative* Mela Walker, BULK FOLDER - 02/11/2024 7:54 AM EDT Patient requesting medication be sent to [facility] in [place]. documented in this [id number] Evaluation + Plan note* Assessment & Plan Note - Mela Walker CNP - 10/16/2023 2:26 PM EDT Associated Problem(s): Depression As discussed within your appointment today, you are doing well on Zoloft, and Lamictal. I would like you to continue to take your medication(s) as ordered. If medication refills are needed, they havebeen sent to your pharmacy. [id number] Miscellaneous Notes* Assessment & Plan Note - Mela Walker CNP - 10/16/2023 2:26 PM EDTAssociated Problem(s): Depression As discussed within your appointment today, you are doing well on Zoloft, and Lamictal. I would like you to continue to take your medication(s) as ordered. If medication refills are needed, they havebeen sent to your pharmacy. * Assessment & Plan Note - Mela Walker CNP - 10/16/2023 2:25 PM EDT Associated Problem(s): Intractable migraine with aura without status migrainosus As discussed within your appointment today, you are doing well on Topamax. I would like you to continue to take your medication(s) as ordered. If medication refills are needed, [facility]. * Assessment & Plan Note - Mela Walker CNP - 10/16/2023 2:25 PM EDT Associated Problem(s): ADHD I have ordered a 90 day supply of your Adderall. This is a controlled substance which is regulated by the Federal government. To have this medication refilled, you must be seen in the office every 90days. You are also required to have a Controlled Substance Agreement signed and on file, as well asa urine drug screen - these need to be completed yearly. Continue current medications, Controlled Substance Agreement is on file and an [place] report was checked today, you were given a 3 months supply, follow-up in the office as scheduled. documented in this [id number] Evaluation + Plan note* Assessment & Plan Note - Mela Walker CNP - 10/16/2023 2:25 PM EDT Associated Problem(s): Intractable migraine with aura without status migrainosus As discussed within your appointment today, you are doing well on Topamax. I would like you to continue to take your medication(s) as ordered. If medication refills are needed, [facility] [id number] Evaluation + Plan note* Assessment & Plan Note - Mela Walker CNP - 10/16/2023 2:25 PM EDTAssociated Problem(s): ADHD I have ordered a 90 day supply of your Adderall. This is a controlled substance which is regulated by the Federal government. To have this medication refilled, you must be seen in the office every 90days. You are also required to have a Controlled Substance Agreement signed and on file, as well asa urine drug screen - these need to be completed yearly. Continue current medications, Controlled Substance Agreement is on file and an OARRS report was checked today, you were given a 3 months supply, follow-up in the office as scheduled. [id number] History of Present illness Narrative* Mela Walker CNP - 10/12/2023 1:40 PM EDT OFFICE VISIT PROGRESS NOTE Frida Win is a 43 y.o. female with a past medical history of Patient Active Problem List Diagnosis ADHD Hidradenitis suppurativa ANISH (generalized anxiety disorder) Depression Mood disorder (HCC) Well adult exam Intractable migraine with aura without status migrainosus Vitamin D deficiency Iron deficiency who presents for a video visit for a follow up on ADHD. Patient is doing well and denies complaintsat this time. ADHD- Symptoms began (when what age) Medication: Adderall 30mg XR twice a day. 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 [...] medications: 76-100% Health Maintenance Topic Date Due Tetanus: Every 10yrs 04/04/2024 (Originally 06/19/2021) Pneumococcal Vaccine: Ped or At-Risk (1 of 2 - PCV) 04/04/2024 (Originally 08/19/1987) COVID-19 Vaccine (2022-24 season) 2024 (Originally 02/16/2023) Mammogram 01/24/2024 Wellness Visit 04/04/2024 Influenza Vaccine Completed Hepatitis C Screening Discontinued Cervical Cancer Screening Discontinued HIV Screening Discontinued The following portions [...] 4 days Stress: Stress Concern Present (02/09/2022) [employer] [place] [employer] - Occupational Stress Questionnaire Feeling of Stress : Rather much Social Connections: Moderately Isolated (02/09/2022) Social Connection and Isolation Panel [NHANES] Frequency of Communication with Friends and Family: More than three times a week Frequency of Social Gatherings with Friends and Family: Once a week Attends [employer] Services: Never Active Member of Clubs or [...] (one) capsule (30 mg total) by mouth 2 (two) times a day . Previous Medications DEXTROAMPHETAMINE-AMPHETAMINE (ADDERALL) 10 MG TABLET Take 1 (one) tablet (10 mg total) by mouth daily . ERGOCALCIFEROL (ERGOCALCIFEROL) 1,250 MCG (50,000 UNIT) CAPSULE Take 1 (one) capsule (50,000 Units total) by mouth once a week . POLYSACCHARIDE IRON COMPLEX (IFEREX) 150 MG IRON CAPSULE Take 1 (one) capsule (150 mg total) by mouth 2 (two) times a day . RIMEGEPANT (NURTEC ODT) 75 MG ODT Dissolve 1 (one) tablet (75 mg total) on top of tongue daily as needed . Modified Medications Modified Medication Previous Medication CLONIDINE HCL (CATAPRES) 0.1 MG TABLET cloNIDine HCL (CATAPRES) 0.1 MG tablet Take 1 (one) tablet (0.1 mg total) by mouth nightly . Take 1 (one) tablet (0.1 mg total) by mouth nightly . DEXTROAMPHETAMINE-AMPHETAMINE (ADDERALL XR) 30 MG 24 HR CAPSULE dextroamphetamine-amphetamine (ADDERALL XR) 30 MG 24 hr capsule Take 1 (one) capsule (30 mg total) by mouth 2 (two) times a day Start: 11/09/23. Take 1 (one) capsule (30 mg total) by mouth 2 (two) times a day Start: 08/29/23. DEXTROAMPHETAMINE-AMPHETAMINE (ADDERALL XR) 30 MG 24 HR CAPSULE dextroamphetamine-amphetamine (ADDERALL XR) 30 MG 24 hr capsule Take 1 (one) capsule (30 mg total) by mouth 2 (two) times a day Start: 12/07/23. Take 1 (one) capsule (30 mg total) by mouth 2 (two) times a day . LAMOTRIGINE (LAMICTAL) 100 MG TABLET lamoTRIgine (LAMICTAL) 100 MG tablet Take 1 (one) tablet (100 mg total) by mouth daily . Take 1 (one) tablet (100 mg total) by mouth daily . SERTRALINE (ZOLOFT) 100 MG TABLET sertraline (ZOLOFT) 100 MG tablet Take 1 (one) tablet (100 mg total) by mouth daily . Take 1 (one) tablet (100 mg total) by mouth daily . TOPIRAMATE (TOPAMAX) 25 MG TABLET topiramate (TOPAMAX) 25 MG tablet Take 25mg in the AM, and 50mg in the PM . Take 25mg in the AM, and 50mg in the PM . Discontinued Medications No medications on file [...] were no vitals filed for this visit. BP Readings from Last 3 Encounters: 04/04/23 125/83 07/19/22 115/80 04/05/22 139/66 Wt Readings from Last 3 Encounters: 04/04/23 95.3 kg (210 lb 3.2 oz) 07/19/22 96.7 kg (213 lb 1.6 oz) 04/05/22 98.9 kg (218 lb) There is no height or weight on file to calculate BMI. Physical Exam Physical Exam Vitals reviewed. Constitutional: Appearance: Normal appearance. She is well-developed. HENT: Head: Normocephalic. Right Ear: External ear normal. Left Ear: External ear normal. Nose: Nose normal. Eyes: General: Lids are normal. Pulmonary: Effort: Pulmonary effort is normal. Musculoskeletal: General: Normal range of motion. Skin: [...] Judgment normal. OARRS/NARxCHECK Report Received and Assessed: Mela Walker, MARYA on 10/12/2023 1:55 PM Date controlled substance agreement signed: 02/10/2022 Date of last drug screen: The 10-year ASCVD risk score (Vandana LOWE, et al., 2019) is: 2% Values used to calculate the score: Age: 43 years Sex: Female Is Non- : No Diabetic: No Tobacco smoker: Yes Systolic Blood Pressure: 125 mmHg Is BP treated: No HDL Cholesterol: 47 mg/dL Total Cholesterol: 156 mg/dL Assessment/Plan Problem List Items Addressed This Visit Cardiovascular and Mediastinum Intractable migraine with aura without status migrainosus As discussed within your appointment today, you are doing well on Topamax. I would like you to continue to take your medication(s) as ordered. If medication refills are needed, [facility]. Relevant Medications lamoTRIgine (LAMICTAL) 100 MG tablet topiramate (TOPAMAX) 25 MG tablet Other ADHD I have ordered a 90 day supply of your Adderall. This is a controlled substance which is regulated by the Federal government. To have this medication refilled, you must be seen in the office every 90days. You are also required to have a Controlled Substance Agreement signed and on file, as well asa urine drug screen - these need to be completed yearly. Continue current medications, Controlled Substance Agreement is on file and an OAR[place] report was checked today, you were given a 3 months supply, follow-up in the office as scheduled. Relevant Medications dextroamphetamine-amphetamine (ADDERALL XR) 30 MG 24 hr capsule (Start on 11/09/2023) dextroamphetamine-amphetamine (ADDERALL XR) 30 MG 24 hr capsule (Start on 12/07/2023) sertraline (ZOLOFT) 100 MG tablet dextroamphetamine-amphetamine (ADDERALL XR) 30 MG 24 hr capsule Depression As discussed within your appointment today, you are doing well on Zoloft, and Lamictal. I would like you to continue to take your medication(s) as ordered. If medication refills are needed, they havebeen sent to your pharmacy. Relevant Medications dextroamphetamine-amphetamine (ADDERALL XR) 30 MG 24 hr capsule (Start on 11/09/2023) dextroamphetamine-amphetamine (ADDERALL XR) 30 MG 24 hr capsule (Start on 12/07/2023) lamoTRIgine (LAMICTAL) 100 MG tablet sertraline (ZOLOFT) 100 MG tablet dextroamphetamine-amphetamine (ADDERALL XR) 30 MG 24 hr capsule I am managing Frida Win for complex chronic condition(s) serving as the focal point for thepatient's care for consistency and continuity over time. Goals None For any new medications prescribed today, patient was educated about indications for the medication, how to take the medication and potential side effects of the medications. documented in this [id number] Evaluation + Plan note* Assessment & Plan Note - Mela Walker CNP - 07/05/2023 3:37 PM EST Associated Problem(s): ADHD I have ordered a 90 day supply of your Mydais. This [place] a [place] To have this medication refilled, you must be seen in the office every 90 days. You are also required to have a Controlled Substance Agreement signed and on file, as well as aurine drug screen - these need to be completed yearly. Continue current medications, Controlled Substance Agreement is on file and an OARRS report was checked today, you were given a 1 month(s) supply, follow-up in the office as scheduled. [id number] Miscellaneous Notes* Assessment & Plan Note - Mela Walker CNP - 07/05/2023 3:37 PM ESTAssociated Problem(s): ADHD I have ordered a 90 day supply of your Mydais. This is a controlled substance which is regulated bythe Federal government. To have this medication refilled, you must be seen in the office every 90 days. You are also required to have a Controlled Substance Agreement signed and on file, as well as aurine drug screen - these need to be completed yearly. Continue current medications, Controlled Substance Agreement is on file and an OARRS report was checked today, you were given a 1 month(s) supply, follow-up in the office as scheduled. * Assessment & Plan Note - Mela Walker CNP - 07/05/2023 3:36 PM EST Associated Problem(s): Depression As discussed within your appointment today, you are doing well on Zoloft. I would like you to continue to take your medication(s) as ordered. If medication refills are needed, they have been sent to your pharmacy. * Assessment & Plan Note - Mela Walker CNP - 07/05/2023 3:36 PM EST Associated Problem(s): Vitamin D deficiency As discussed within your appointment today, you are doing well on vitamin D. I would like you to continue to take your medication(s) as ordered. If medication refills are needed, they have been sent to your pharmacy. * Assessment & Plan Note - Mela Walker CNP - 07/05/2023 3:35 PM EST Associated Problem(s): Intractable migraine with aura without status migrainosus As discussed within your appointment today, you are doing well on Nurtec. I would like you to continue to take your medication(s) as ordered. If medication refills are needed, they have been sent to your pharmacy. documented in this [id number] Evaluation + Plan note* Assessment & Plan Note - Mela Walker CNP - 07/05/2023 3:36 PM EST Associated Problem(s): Depression As discussed within your appointment today, you are doing well on Zoloft. I would like you to continue to take your medication(s) as ordered. If medication refills are needed, they have been sent to your pharmacy. [id number] Evaluation + Plan note* Assessment & Plan Note - Mela Walker CNP - 07/05/2023 3:36 PM ESTAssociated Problem(s): Vitamin D deficiency As discussed within your appointment today, you are doing well on vitamin D. I would like you to continue to take your medication(s) as ordered. If medication refills are needed, they have been sent to your pharmacy. [id number] Evaluation + Plan note* Assessment & Plan Note - Mela Walker CNP - 07/05/2023 3:35 PM ESTAssociated Problem(s): Intractable migraine with aura without status migrainosus As discussed within your appointment today, you are doing well on Nurtec. I would like you to continue to take your medication(s) as ordered. If medication refills are needed, they have been sent to your pharmacy. [id number] History of Present illness Narrative* Mela Walker CNP - 07/05/2023 2:40 PM EST OFFICE VISIT PROGRESS NOTE Frida Win is a 42 y.o. female with a past medical history of Patient Active Problem List Diagnosis ADHD Hidradenitis suppurativa ANISH (generalized anxiety disorder) Depression Mood disorder (HCC) Well adult exam Intractable migraine with aura without status migrainosus Vitamin D deficiency Iron deficiency who presents for a video visit for a follow up on ADHD. Patient is doing well and denies complaintsat this time. ADHD- Symptoms began (when what age) Medication: Adderall 30mg twice a day, and 10mg nightly - patient does not feel like this is working any longer. 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 [...] medications: 76-100% Health Maintenance Topic Date Due Tetanus: Every 10yrs 04/04/2024 (Originally 06/19/2021) Pneumococcal Vaccine: Ped or At-Risk (1 - PCV) 04/04/2024 (Originally 08/19/1987) COVID-19 Vaccine ( - 2022-24 season) 2024 (Originally 02/16/2023) Mammogram 01/24/2024 Wellness Visit 04/04/2024 Sequential Influenza Vaccine Completed Hepatitis C Screening [...] 4 days Stress: Stress Concern Present (02/09/2022) [place] [employer] - Occupational Stress Questionnaire Feeling of Stress : Rather much Social Connections: Moderately Isolated (02/09/2022) Social Connection and Isolation Panel [NHANES] Frequency of Communication with Friends and Family: More than three times a week Frequency of Social Gatherings with Friends and Family: Once a week Attends [employer] Services: Never Active Member of Clubs or [...] Acid Penicillins Patient's Medications New Prescriptions DEXTROAMPHETAMINE-AMPHETAMINE 25 MG CT24 Take 25 mg by mouth daily . Previous Medications No medications on file Modified Medications Modified Medication Previous Medication CLONIDINE HCL (CATAPRES) 0.1 MG TABLET cloNIDine HCL (CATAPRES) 0.1 MG tablet Take 1 (one) tablet (0.1 mg total) by mouth nightly . Take 1 (one) tablet (0.1 mg total) by mouth nightly . DEXTROAMPHETAMINE-AMPHETAMINE (ADDERALL) 10 MG TABLET dextroamphetamine- amphetamine (ADDERALL) 10 mg tablet Take 1 (one) tablet (10 mg total) by mouth daily . Take 1 (one) tablet (10 mg total) by mouth daily. ERGOCALCIFEROL (ERGOCALCIFEROL) 1,250 MCG (50,000 UNIT) CAPSULE ergocalciferol (ERGOCALCIFEROL) 1,250 mcg (50,000 unit) capsule Take 1 (one) capsule (50,000 Units total) by mouth once a week . Take 1 (one) capsule (50,000 Unitstotal) by mouth once a week . LAMOTRIGINE (LAMICTAL) 100 MG TABLET lamoTRIgine (LAMICTAL) 100 MG tablet Take 1 (one) tablet (100 mg total) by mouth daily . Take 1 (one) tablet (100 mg total) by mouth daily . POLYSACCHARIDE IRON COMPLEX (IFEREX) 150 MG IRON CAPSULE polysaccharide iron complex (IFEREX) 150 mg iron capsule Take 1 (one) capsule (150 mg total) by mouth 2 (two) times a day . Take 1 (one) capsule (150 mg total) by mouth 2 (two) times a day . RIMEGEPANT (NURTEC ODT) 75 MG ODT rimegepant (Nurtec ODT) 75 mg ODT Dissolve 1 (one) tablet (75 mg total) on top of tongue daily as needed . Dissolve 1 (one) tablet (75 mg total) on top of tongue daily as needed . SERTRALINE (ZOLOFT) 100 MG TABLET sertraline (ZOLOFT) 100 MG tablet Take 1 (one) tablet (100 mg total) by mouth daily . Take 1 (one) tablet (100 mg total) by mouth daily . TOPIRAMATE (TOPAMAX) 25 MG TABLET topiramate (TOPAMAX) 25 MG tablet Take 25mg in the AM, and 50mg in the PM . Take 25mg in the AM, and 50mg in the PM . Discontinued Medications DEXTROAMPHETAMINE-AMPHETAMINE (ADDERALL) 10 MG TABLET Take 1 (one) tablet (10 mg total) by mouth daily Start: 05/02/23. DEXTROAMPHETAMINE-AMPHETAMINE (ADDERALL) 30 MG TABLET Take 1 (one) tablet (30 mg total) by mouth 2 (two) times a day Start: 05/30/23. DEXTROAMPHETAMINE-AMPHETAMINE (ADDERALL) 30 MG TABLET Take 1 (one) tablet (30 mg total) by mouth 2 (two) times a day Start: 05/02/23. DEXTROAMPHETAMINE-AMPHETAMINE (ADDERALL) 30 MG TABLET Take 1 [...] were no vitals filed for this visit. BP Readings from Last 3 Encounters: 04/04/23 125/83 07/19/22 115/80 04/05/22 139/66 Wt Readings from Last 3 Encounters: 04/04/23 95.3 kg (210 lb 3.2 oz) 07/19/22 96.7 kg (213 lb 1.6 oz) 04/05/22 98.9 kg (218 lb) There is no height or weight on file to calculate BMI. Physical Exam Physical Exam Vitals reviewed. Constitutional: Appearance: Normal appearance. She is well-developed. HENT: Head: Normocephalic. Right Ear: External ear normal. Left Ear: External ear normal. Nose: Nose normal. Eyes: General: Lids are normal. Pulmonary: Effort: Pulmonary effort is normal. Musculoskeletal: General: Normal range of motion. Skin: [...] Judgment normal. OARRS/NARxCHECK Report Received and Assessed: 07/05/2023 Date controlled substance agreement signed: 02/10/2022 Date of last drug screen: 02/10/2022 Functional Assessment: No data found The 10-year ASCVD risk score (Vandana LOWE, et al., 2019) is: 1.9% Values used to calculate the score: Age: 42 years Sex: Female Is Non- : No Diabetic: No Tobacco smoker: Yes Systolic Blood Pressure: 125 mmHg Is BP treated: No HDL Cholesterol: 47 mg/dL Total Cholesterol: 156 mg/dL Assessment/Plan Problem List Items Addressed This Visit Cardiovascular and Mediastinum Intractable migraine with aura without status migrainosus As discussed within your appointment today, you are doing well on Nurtec. I would like you to continue to take your medication(s) as ordered. If medication refills are needed, they have been sent to your pharmacy. Relevant Medications lamoTRIgine (LAMICTAL) 100 MG tablet rimegepant (Nurtec ODT) 75 mg ODT topiramate (TOPAMAX) 25 MG tablet Other ADHD I have ordered a 90 day supply of your Mydais. This is a controlled substance which is regulated bythe [facility] government. To have this medication refilled, you must be seen in the office every 90 days. You are also required to have a Controlled Substance Agreement signed and on file, as well as aurine drug screen - these need to be completed yearly. Continue current medications, Controlled Substance Agreement is on file and an OARRS report was checked today, you were given a 1 month(s) supply, follow-up in the office as scheduled. Relevant Medications dextroamphetamine-amphetamine 25 mg CT24 sertraline (ZOLOFT) 100 MG tablet dextroamphetamine-amphetamine (ADDERALL) 10 mg tablet Depression As discussed within your appointment today, you are doing well on Zoloft. I would like you to continue to take your medication(s) as ordered. If medication refills are needed, they have been sent to your pharmacy. Relevant Medications dextroamphetamine-amphetamine 25 mg CT24 lamoTRIgine (LAMICTAL) 100 MG tablet sertraline (ZOLOFT) 100 MG tablet dextroamphetamine-amphetamine (ADDERALL) 10 mg tablet Vitamin D deficiency As discussed within your appointment today, you are doing well on vitamin D. I would like you to continue to take your medication(s) as ordered. If medication refills are needed, they have been sent to your pharmacy. Relevant Medications ergocalciferol (ERGOCALCIFEROL) 1,250 mcg (50,000 unit) capsule Iron deficiency Relevant Medications polysaccharide iron complex (IFEREX) 150 mg iron capsule Goals None For any new medications prescribed today, patient was educated about indications for the medication, how to take the medication and potential side effects of the medications. documented in this [id number] Evaluation + Plan note* Assessment & Plan Note - Mela Walker CNP - 04/04/2023 1:53 PM EDT Associated Problem(s): Well adult exam Doing well, denies complaints at this time. Health maintenance updated and reviewed with patient. It is recommended that you complete at least 150 minutes of cardiovascular activity weekly. [id number] Miscellaneous Notes* Assessment & Plan Note - Mela Walker CNP - 04/04/2023 1:53 PM EDTAssociated Problem(s): Well adult exam Doing well, denies complaints at this time. Health maintenance updated and reviewed with patient. It is recommended that you complete at least 150 minutes of cardiovascular activity weekly. * Assessment & Plan Note - Mela Walker CNP - 04/04/2023 1:51 PM EDT Associated Problem(s): ADHD I have ordered a 90 day supply of your Adderall. This is a controlled substance which is regulated by the Federal government. To have this medication refilled, you must be seen in the office every 90days. You are also required to have a Controlled Substance Agreement signed and on file, as well asa urine drug screen - these need to be completed yearly. Continue current medications, Controlled Substance Agreement is on file and an OARRS report was checked today, you were given a 3 months supply, follow-up in the office as scheduled. * Assessment & Plan Note - Mela Walker CNP - 04/04/2023 1:50 PM EDT Associated Problem(s): Iron deficiency I have sent an iron supplement into your pharmacy, please take this as ordered. documented in this [id number] Evaluation + Plan note* Assessment & Plan Note - Mela Walker CNP - 04/04/2023 1:51 PM EDT Associated Problem(s): ADHD I have ordered a 90 day supply of your Adderall. This is a controlled substance which is regulated by the Federal government. To have this medication refilled, you must be seen in the office every 90days. You are also required to have a Controlled Substance Agreement signed and on file, as well asa urine drug screen - these need to be completed yearly. Continue current medications, Controlled Substance Agreement is on file and an OARRS report was checked today, you were given a 3 months supply, follow-up in the office as scheduled. [id number] Evaluation + Plan note* Assessment & Plan Note - Mela Walker CNP - 04/04/2023 1:50 PM EDTAssociated Problem(s): Iron deficiency I have sent an iron supplement into your pharmacy, please take this as ordered. [id number] History of Present illness Narrative* Mela Walker CNP - 04/04/2023 10:20 AM EDT Images from the original note were not included. OUTPATIENT WELL ADULT PROGRESS NOTE Frida Win is a 42 y.o. female and is here for a preventative care visit. Patient's medical and surgical history was updated, as well as family's medical history. Health maintenance was reviewed and updated Patient is a 42 y.o. female with a past medical history of Patient Active Problem List Diagnosis ADHD Hidradenitis suppurativa ANISH (generalized anxiety disorder) Depression Mood disorder ([facility]) Well adult exam Intractable migraine with aura without status migrainosus Vitamin D deficiency Iron deficiency who presents to the office today for a well adult exam. Patient is doing well and denies complaintsat this time. 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 [...] past medical history, past social history, past surgicalhistory and problem list. Past Medical History: Diagnosis [...] 4 days Stress: Stress Concern Present (02/09/2022) [place] [employer] - Occupational Stress Questionnaire Feeling of Stress : Rather much Social Connections: Moderately Isolated (02/09/2022) Social Connection and Isolation Panel [NHANES] Frequency of Communication with Friends and Family: More than three times a week Frequency of Social Gatherings with Friends and Family: Once a week Attends [employer] Services: Never Active Member of Clubs or [...] 05/02/23. Take 1 (one) tablet (10 mg total)by mouth daily Start: 02/28/23. DEXTROAMPHETAMINE-AMPHETAMINE (ADDERALL) 10 MG TABLET dextroamphetamine- amphetamine (ADDERALL) 10 mg tablet Take 1 (one) tablet (10 mg total) by mouth daily . Take 1 (one) tablet (10 mg total) by mouth daily. DEXTROAMPHETAMINE-AMPHETAMINE (ADDERALL) 30 MG TABLET dextroamphetamine- amphetamine (ADDERALL) 30 mg tablet Take 1 (one) tablet (30 mg total) by mouth 2 (two) times a day Start: 05/30/23. Take 1 (one) tablet(30 mg total) by mouth 2 (two) times a day Start: 03/28/23. DEXTROAMPHETAMINE-AMPHETAMINE (ADDERALL) 30 MG TABLET dextroamphetamine- amphetamine (ADDERALL) 30 mg tablet Take 1 (one) tablet (30 mg total) by mouth 2 (two) times a day Start: 05/02/23. Take 1 (one) tablet(30 mg total) by mouth 2 (two) times a day Start: 02/28/23. DEXTROAMPHETAMINE-AMPHETAMINE (ADDERALL) 30 MG TABLET dextroamphetamine- amphetamine (ADDERALL) 30 mg tablet Take 1 (one) tablet (30 mg total) by mouth 2 (two) times a day . Take 1 (one) tablet (30 mg total) by mouth 2 (two) times a day . Discontinued Medications No medications on file Objective: BP 125/83 (BP Location: Right arm, Patient Position: Sitting, BP Cuff Size: X- large Adult) Pulse (!) 106 Temp 98.1 F [...] must be seen in the office every 90days. You are also required to have a Controlled Substance Agreement signed and on file, as well asa urine drug screen - these need to [...] iron capsule Goals None Electronically signed by: Mela Walker C.N.P 04/04/23 1:53 PM General Patient Counseling Given: --Nutrition: Stressed importance of moderation in sodium/caffeine intake, saturated fat and cholesterol, caloric balance, sufficient intake of fresh fruits, vegetables, fiber, calcium, iron, and 1 mgof folate supplement per day (for females capable [...] Shingles vaccines recommended after the age of 50,Pneumonia vaccines due after the age of 65. --Discussed benefits of screening mammograms, pap smears, Dexa Scan (screening of osteoporosis) andcolonoscopy. documented in this [id number] Evaluation + Plan note* Assessment & Plan Note - Mela Walker CNP - 10/18/2022 2:12 PM EDT Associated Problem(s): Mood disorder (HCC) I have increased the Lamictal to 75mg daily, please let me know if you develop any side effects from this dose change. [id number] Miscellaneous Notes* Assessment & Plan Note - Mela Walker CNP - 10/18/2022 2:12 PM EDTAssociated Problem(s): Mood disorder (HCC) I have increased the Lamictal to 75mg daily, please let me know if you develop any side effects from this dose change. * Assessment & Plan Note - Mela Walker CNP - 10/18/2022 2:11 PM EDT Associated Problem(s): ADHD I have ordered a 90 day supply of your Adderall. This is a controlled substance which is regulated by the Federal government. To have this medication refilled, you must be seen in the office every 90days. You are also required to have a Controlled Substance Agreement signed and on file, as well asa urine drug screen - these need to be completed yearly. Continue current medications, Controlled Substance Agreement is on file and an OARRS report was checked today, you were given a 3 months supply, follow-up in the office as scheduled. documented in this [id number] Evaluation + Plan note* Assessment & Plan Note - Mela Walker CNP - 10/18/2022 2:11 PM EDT Associated Problem(s): ADHD I have ordered a 90 day supply of your Adderall. This is a controlled substance which is regulated by the [facility] government. To have this medication refilled, you must be seen in the office every 90days. You are also required to have a Controlled Substance Agreement signed and on file, as well asa urine drug screen - these need to be completed yearly. Continue current medications, Controlled Substance Agreement is on file and an OAR[place] report was checked today, you were given a 3 months supply, follow-up in the office as scheduled. [id number] History of Present illness Narrative* Mela Walker CNP - 10/18/2022 2:00 PM EDT VIDEO VISIT PROGRESS NOTE Frida Win is a 42 y.o. 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 [...] 4 days Stress: Stress Concern Present (02/09/2022) [employer] [place] [employer] - Occupational Stress Questionnaire Feeling of Stress : Rather much Social Connections: Moderately Isolated (02/09/2022) Social Connection and Isolation Panel [NHANES] Frequency of Communication with Friends and Family: More than three times a week Frequency of Social Gatherings with Friends and Family: Once a week Attends [employer] Services: Never Active Member of Clubs or [...] 11/15/22. Take 1 (one) tablet (10 mg total)by mouth daily . DEXTROAMPHETAMINE-AMPHETAMINE (ADDERALL) 10 MG TABLET dextroamphetamine- amphetamine (ADDERALL) 10 mg tablet Take 1 (one) tablet (10 mg total) by mouth daily . Take 1 (one) tablet (10 mg total) by mouth daily. DEXTROAMPHETAMINE-AMPHETAMINE (ADDERALL) 30 MG TABLET dextroamphetamine- amphetamine (ADDERALL) 30 mg tablet Take 1 (one) tablet (30 mg total) by mouth 2 (two) times a day Start: 12/13/22. Take 1 (one) tablet(30 mg total) by mouth 2 (two) times a day Start: 09/13/22. DEXTROAMPHETAMINE-AMPHETAMINE (ADDERALL) 30 MG TABLET dextroamphetamine- amphetamine (ADDERALL) 30 mg tablet Take 1 (one) tablet (30 mg total) by mouth 2 (two) times a day Start: 11/15/22. Take 1 (one) tablet(30 mg total) by [...] appearance. HENT: Nose: Nose normal. Mouth/Throat: Lips: Rochelle. Pulmonary: Effort: Pulmonary effort is normal. Musculoskeletal: [...] Cognition and memory normal. Judgment: Judgment normal. OARRS/NARxCHERASTA Report Received and Assessed: 10/18/2022 Date controlled [...] must be seen in the office every 90days. You are also required to have a Controlled Substance Agreement signed and on file, as well asa urine drug screen - these need to [...] Goals None Video Visit [facility] [address] [facility] [address] [place] [address] Via Real-time Synchronous Audiovisual [facility] 10/18/2022 Mela Walker CNP Provider Location: [facility] PCP, or provider's home Patient Location [employer]ing Services: None Patient Location: Work Patient: Frida Win Date of : 1980 (42 y.o. female) PCP: Mela Walker CNP Video Visit Consent Statement: I discussed [...] there are inherent diagnostic limitations compared to oydq-kq-iqfg evaluations. We elected to proceed with the video visit telemedicine consultation. For any new medications prescribed today, patient was educated about indications for the medication, how to take the medication and potential side effects of the medications. documented in this [id number] Evaluation + Plan note* Assessment & Plan Note - Mela Walker CNP - 07/25/2022 1:48 PM EST Associated Problem(s): Mood disorder (HCC) As discussed within your appointment today, you are doing well on Lamictal, and Zoloft. I would like you to continue to take your medication(s) as ordered. If medication refills are needed, they havebeen sent to your pharmacy. [id number] Evaluation + Plan note* Assessment & Plan Note - Mela Walker CNP - 07/25/2022 1:48 PM ESTAssociated Problem(s): ADHD I have ordered a 90 day supply of your Adderall. This is a controlled substance which is regulated by the Federal government. To have this medication refilled, you must be seen in the office every 90days. You are also required to have a Controlled Substance Agreement signed and on file, as well asa urine drug screen - these need to be completed yearly. Continue current medications, Controlled Substance Agreement is on file and an OARRS report was checked today, you were given a 3 months supply, follow-up in the office as scheduled. [id number] Evaluation + Plan note* Assessment & Plan Note - Mela Walker CNP - 07/25/2022 1:48 PM ESTAssociated Problem(s): Intractable migraine with aura without status migrainosus As discussed within your appointment today, you are doing well on Topamax. I would like you to continue to take your medication(s) as ordered. If medication refills are needed, [facility]. [id number] Miscellaneous Notes* Assessment & Plan Note - Mela Walker CNP - 07/25/2022 1:48 PM ESTAssociated Problem(s): Mood disorder (HCC) As discussed within your appointment today, you are doing well on Lamictal, and Zoloft. I would like you to continue to take your medication(s) as ordered. If medication refills are needed, they havebeen sent to your pharmacy. * Assessment & Plan Note - Mela Walker CNP - 07/25/2022 1:48 PM EST Associated Problem(s): ADHD I have ordered a 90 day supply of your Adderall. This is a controlled substance which is regulated by the Federal government. To have this medication refilled, you must be seen in the office every 90days. You are also required to have a Controlled Substance Agreement signed and on file, as well asa urine drug screen - these need to be completed yearly. Continue current medications, Controlled Substance Agreement is on file and an OARRS report was checked today, you were given a 3 months supply, follow-up in the office as scheduled. * Assessment & Plan Note - Mela Walker CNP - 07/25/2022 1:48 PM EST Associated Problem(s): Intractable migraine with aura without status migrainosus As discussed within your appointment today, you are doing well on Topamax. I would like you to continue to take your medication(s) as ordered. If medication refills are needed, [facility]. documented in this [id number] History of Present illness Narrative* Mela Walker CNP - 07/19/2022 3:50 PM EST OFFICE VISIT PROGRESS NOTE Frida Win is a 41 y.o. 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 [...] Friends and Family: Once a week Attends Anglican Services: Never Active Member of Clubs or [...] 08/16/22. Take 1 (one) tablet (10 mg total)by mouth daily . DEXTROAMPHETAMINE-AMPHETAMINE (ADDERALL) 10 MG TABLET dextroamphetamine- amphetamine (ADDERALL) 10 mg tablet Take 1 (one) tablet (10 mg total) by mouth daily . Take 1 (one) tablet (10 mg total) by mouth daily. DEXTROAMPHETAMINE-AMPHETAMINE (ADDERALL) 30 MG TABLET dextroamphetamine- amphetamine (ADDERALL) 30 mg tablet Take 1 (one) tablet (30 mg total) by mouth 2 (two) times a day Start: 09/13/22. Take 1 (one) tablet(30 mg total) by mouth 2 (two) times a day Start: 03/10/22. DEXTROAMPHETAMINE-AMPHETAMINE (ADDERALL) 30 MG TABLET dextroamphetamine- amphetamine (ADDERALL) 30 mg tablet Take 1 (one) tablet (30 mg total) by mouth 2 (two) times a day Start: 08/16/22. Take 1 (one) tablet(30 mg total) by [...] (one) tablet (25 mg total) by mouth daily. TOPIRAMATE (TOPAMAX) 25 MG TABLET topiramate (TOPAMAX) 25 MG tablet Take 25mg in the AM, and 50mg in the PM . Take 1 (one) tablet (25 mg total) by mouth every morning for 7 days, THEN 2 (two) tablets (50 mg total) at bedtime. Discontinued Medications CLINDAMYCIN (CLEOCIN) 300 MG CAPSULE Take 1 (one) capsule (300 mg total) by mouth 3 (three) times aday . FLUCONAZOLE (DIFLUCAN) 150 MG TABLET Take [...] found The 10-year ASCVD risk score (Vandana DK, et al., 2019) is: 1.8% Values used [...] refills are needed, they have been [facility]. Relevant Medications lamoTRIgine (LAMICTAL) 25 MG tablet topiramate (TOPAMAX) 25 MG tablet Other ADHD I have ordered a 90 day supply of your Adderall. This is a controlled substance which is regulated by the Federal government. To have this medication refilled, you must be seen in the office every 90days. You are also required to have a Controlled Substance Agreement signed and on file, as well asa urine drug screen - these need to [...] ordered. If medication refills are needed, they havebeen sent to your pharmacy. Relevant Medications lamoTRIgine [...] effects of the medications. documented in this [id number] Telephone encounter Note* Telephone Encounter - Mela Walker CNP - 06/28/2022 3:44 PM EST Please call the patient to schedule an appointment. She would like one in Jul. Thank you [id number] Miscellaneous Notes* Telephone Encounter - Mela Walker CNP - 06/28/2022 3:44 PM EST Please call the patient to schedule an appointment. She would like one in Jul. Thank you documented in this [id number] Evaluation + Plan note* Assessment & Plan Note - Mela Walker CNP - 02/23/2022 9:41 PM EDT Associated Problem(s): ADHD I have ordered a 90 day supply of your Adderall. This is a controlled substance which is regulated by the Federal government. To have this medication refilled, you must be seen in the office every 90days. You are also required to have a Controlled Substance Agreement signed and on file, as well asa urine drug screen - these need to be completed yearly. Continue current medications, Controlled Substance Agreement is on file and an OARRS report was checked today, you were given a 3 months supply, follow-up in the office as scheduled. [id number] Miscellaneous Notes* Assessment & Plan Note - Mela Walker CNP - 02/23/2022 9:41 PM EDTAssociated Problem(s): ADHD I have ordered a 90 day supply of your Adderall. This is a controlled substance which is regulated by the Federal government. To have this medication refilled, you must be seen in the office every 90days. You are also required to have a Controlled Substance Agreement signed and on file, as well asa urine drug screen - these need to be completed yearly. Continue current medications, Controlled Substance Agreement is on file and an OARRS report was checked today, you were given a 3 months supply, follow-up in the office as scheduled. * Assessment & Plan Note - Mela Walker CNP - 02/23/2022 9:40 PM EDT Associated Problem(s): Depression I would like you to start taking Zoloft. When you start this medication stop taking the Prozac. Please contact the office if you do not notice any improvement in your mood. * Assessment & Plan Note - Mela Walker CNP - 02/23/2022 9:40 PM EDT Associated Problem(s): Screening mammogram for breast cancer It is time to get your Mammogram done. Please call and schedule your appointment. [facility] ( [facility]) [address] [place] [address] * Assessment & Plan Note - Mela Walker CNP - 02/23/2022 9:39 PM EDT Associated Problem(s): Intractable migraine with aura without status migrainosus With your worsening migraines, I would like you to start taking topamax as ordered, and Nurtec as needed. It is my hope that with these two medications, we can gain control over your migraines. documented in this [id number] Evaluation + Plan note* Assessment & Plan Note - Mela Walker CNP - 02/23/2022 9:40 PM EDT Associated Problem(s): Depression I would like you to start taking Zoloft. When you start this medication stop taking the Prozac. Please contact the office if you do not notice any improvement in your mood. [id number] Evaluation + Plan note* Assessment & Plan Note - Mela Walker CNP - 02/23/2022 9:40 PM EDTAssociated Problem(s): Screening mammogram for breast cancer It is time to get your Mammogram done. Please call and schedule your appointment. [facility] ( [facility]) [address] [place] [address] [id number] Evaluation + Plan note* Assessment & Plan Note - Mela Walker CNP - 02/23/2022 9:39 PM EDTAssociated Problem(s): Intractable migraine with aura without status migrainosus With your worsening migraines, I would like you to start taking topamax as ordered, and Nurtec as needed. It is my hope that with these two medications, we can gain control over your migraines. [id number] History of Present illness Narrative* Mela Walker CNP - 02/23/2022 9:36 PM EDT OFFICE VISIT PROGRESS NOTE Frida Win is a 41 y.o. 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 [...] Friends and Family: Once a week Attends Anglican Services: Never Active Member of Clubs or Organizations: No Attends Club or Organization Meetings: Never Marital Status: Living with partner Housing Stability: Low Risk Unable to Pay for Housing in the Last Year: No Number of Places Lived in the Last Year: 1 Unstable Housing in the Last Year: No Past Surgical History: Procedure Laterality Date HYSTERECTOMY 2007 Allergies Allergen Reactions Amoxicillin-Pot Clavulanate Hives and [...] total) by mouth daily for 7 days, THEN1 (one) tablet (25 mg total) 2 (two) [...] 03/10/22. Take 1 (one) tablet (10 mg total)by mouth daily Start: 10/12/21. DEXTROAMPHETAMINE-AMPHETAMINE (ADDERALL) 10 MG TABLET dextroamphetamine- amphetamine (ADDERALL) 10 mg tablet Take 1 (one) tablet (10 mg total) by mouth daily . Take 1 (one) tablet (10 mg total) by mouth daily. DEXTROAMPHETAMINE-AMPHETAMINE (ADDERALL) 30 MG TABLET dextroamphetamine- amphetamine (ADDERALL) 30 mg tablet Take 1 (one) tablet (30 mg total) by mouth 2 (two) times a day Start: 04/07/22. Take 1 (one) tablet(30 mg total) by mouth 2 (two) times a day Start: 11/09/21. DEXTROAMPHETAMINE-AMPHETAMINE (ADDERALL) 30 MG TABLET dextroamphetamine- amphetamine (ADDERALL) 30 mg tablet Take 1 (one) tablet (30 mg total) by mouth 2 (two) times a day Start: 03/10/22. Take 1 (one) tablet(30 mg total) by [...] must be seen in the office every 90days. You are also required to have a Controlled Substance Agreement signed and on file, as well asa urine drug screen - these need to [...] and schedule your appointment. [facility] ( [facility]) [address] [place] [address] Relevant Orders Mammography Screening Ortiz Bilateral Goals None For any new medications prescribed today, patient was educated about indications for the medication, how to take the medication and potential side effects of the medications. documented in this [id number] Instructions* Patient Instructions* Mela Walker CNP - 06/21/2021 9:47 PM EST Images [...] adulthood. Many adults don't know that they haveADHD until their children are diagnosed. Then they [...] it harder for them to deal with stress.These adults may overreact and have a short, [...] counseling. Or it may be a combination ofthese treatments. Medicines Stimulant medicines are most often [...] to: Get organized. A daily organizer or business planner can help these adults organize their [...] hyperactivity, or impulsiveness. But it can help withsome of the problems that go along with ADHD. These include not getting along well with others and having problems following rules. Where can you learn more? Log into your personal health record on [email or web address] and enter Z848 in the Education box to learn more about Learning About Attention Deficit Hyperactivity Disorder (ADHD) in Adults. Current as of: December 01, 2020 Content Version: 13.1 [employer]ide[employer]. Care instructions adapted under license by your healthcare professional. If you have questions about a medical condition or this instruction, always ask your healthcare professional. [employer] disclaims any warranty or liability for your use of this information. documented in this [id number] Miscellaneous Notes* Assessment & Plan Note - Mela Walker CNP - 06/21/2021 9:47 PM EST Associated Problem(s): ADHD I have ordered a 90 day supply of your Adderall. This is a controlled substance which is regulated by the Federal government. To have this medication refilled, you must be seen in the office every 90days. You are also required to have a Controlled Substance Agreement signed and on file, as well asa urine drug screen - these need to be completed yearly. Continue current medications, Controlled Substance Agreement is on file and an OARRS report was checked today, you were given a 3 months supply, follow-up in the office as scheduled. documented in this [id number] History of Present illness Narrative* Mela Walker CNP - 06/06/2021 10:34 AM EST VIDEO VISIT PROGRESS NOTE Frida Win is a 40 y.o. 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 [...] (one) tablet (10 mg total) by mouth dailyStart: 04/08/21. DEXTROAMPHETAMINE-AMPHETAMINE (ADDERALL) 10 MG TABLET dextroamphetamine- amphetamine (ADDERALL) 10 mg tablet Take 1 (one) tablet (10 mg total) by mouth daily Start: 07/04/21. Take 1 (one) tablet (10 mg total)by mouth daily . DEXTROAMPHETAMINE-AMPHETAMINE (ADDERALL) 30 MG TABLET dextroamphetamine- amphetamine (ADDERALL) 30 mg tablet Take 1 (one) tablet (30 mg total) by mouth 2 (two) times a day Start: 08/01/21. Take 1 (one) tablet(30 mg total) by mouth 2 (two) times a day Start: 05/06/21. DEXTROAMPHETAMINE-AMPHETAMINE (ADDERALL) 30 MG TABLET dextroamphetamine- amphetamine (ADDERALL) 30 mg tablet Take 1 (one) tablet (30 mg total) by mouth 2 (two) times a day Start: 07/04/21. Take 1 (one) tablet(30 mg total) by mouth 2 (two) times a day Start: 04/08/21. DEXTROAMPHETAMINE-AMPHETAMINE (ADDERALL) 30 MG TABLET dextroamphetamine- amphetamine [...] appearance. HENT: Nose: Nose normal. Mouth/Throat: Lips: Rochelle. Pulmonary: Effort: Pulmonary effort is normal. Musculoskeletal: [...] data found The ASCVD Risk score (Ken DC Jr., et al., 2013) failed to calculate [...] must be seen in the office every 90days. You are also required to have a Controlled Substance Agreement signed and on file, as well asa urine drug screen - these need to [...] 30 mg tablet Goals None Video Visit [facility] [address] [facility] [address] [place] [address] Video Visit [facility] 06/06/2021 Mela Walker CNP Provider Location: opg office or provider's home Patient Location Vice President Consulting Services: None Patient Location: Patient's Home Patient: Frida Win Date of : 1980 (40 y.o. female) PCP: Mela Walker CNP Video Visit Consent Statement: I discussed [...] there are inherent diagnostic limitations compared to twdk-dc-ccws evaluations. We elected to proceed with the video visit telemedicine consultation. For any new medications prescribed today, patient was educated about indications for the medication, how to take the medication and potential side effects of the medications. documented in this [id number] Instructions* Patient Instructions* Mela Walker CNP - 04/15/2021 9:07 AM EDT Images from the original note were not included. Well Visit, Ages 18 to 50: Care Instructions Overview Well visits can help you stay healthy. Your doctor has checked your overall health and may have suggested ways to take good care of yourself. Your doctor also may have recommended tests. At home, youcan help prevent illness with healthy eating, regular [...] whole grains, protein, and low-fat dairy foods. Limitfat, especially saturated fat. Reduce salt in your diet. Limit alcohol. If you are a man, have no more than 2 drinks a day or 14 drinks a week. If you are awoman, have no more than 1 drink a [...] with a new partner (or partners) until you'veeach been tested for STIs. It also helps [...] a.m. to 4 p.m., stay in the shadeor cover up with clothing and a hat with a wide brim. Wear sunglasses that block UV rays. Even whenit's cloudy, put broad-spectrum sunscreen (SPF 30 or [...] Log into your personal health record on [email or web address] and enter P072 in the Education box to learn more about Well Visit, Ages 18 to 50: Care Instructions. Current as of: July 29, 2020 Content Version: 13.0 [id number] SlideMail. Care instructions adapted under license by your healthcare professional. If you have questions about a medical condition or this instruction, always ask your healthcare professional. [employer] disclaims any warranty or liability for your use of this information. documented in this [id number] Miscellaneous Notes* Assessment & Plan Note - Mela Walker CNP - 04/15/2021 9:07 AM EDT Associated Problem(s): Well adult exam Doing well, denies complaints at this time. Health maintenance updated and reviewed with patient. It is recommended that you complete at least 150 minutes of cardiovascular activity weekly. documented in this [id number] History of Present illness Narrative* Mela Walker CNP - 04/15/2021 8:17 AM EDT OUTPATIENT WELL ADULT PROGRESS NOTE Frida Win is a 40 y.o. female and is [...] exam. Patient is doing well and denies complaintsat this time. HPI Subjective: Health Maintenance reviewed [...] past medical history, past social history, past surgicalhistory and problem list. Past Medical History: Diagnosis [...] Friends and Family: Not on file Attends [employer] Services: Not on file Active Member of [...] arm, Patient Position: Sitting, BP Cuff Size: X- large Adult) Pulse 83 Temp 98.1 F (36.7 [...] fruits, vegetables, fiber, calcium, iron, and 1 mgof folate supplement per day (for females capable [...] Shingles vaccines recommended after the age of 50,Pneumonia vaccines due after the age of 65. --Discussed benefits of screening mammograms, pap smears, Dexa Scan (screening of osteoporosis) andcolonoscopy. documented in this [id number] Instructions* Patient Instructions* Mela Walker CNP - 03/18/2021 3:51 PM EDT Images [...] adulthood. Many adults don't know that they haveADHD until their children are diagnosed. Then they [...] it harder for them to deal with stress.These adults may overreact and have a short, [...] counseling. Or it may be a combination ofthese treatments. Medicines Stimulant medicines are most often [...] to: Get organized. A daily organizer or business planner can help these adults organize their [...] hyperactivity, or impulsiveness. But it can help withsome of the problems that go along with ADHD. These include not getting along well with others and having problems following rules. Where can you learn more? Log into your personal health record on https://Adatao.BRIKA and enter Z848 in the Education box to learn more about Learning About Attention Deficit Hyperactivity Disorder (ADHD) in Adults. Current as of: December 01, 2020 Content Version: 13.0 [employer]. Care instructions adapted under license by your healthcare professional. If you have questions about a medical condition or this instruction, always ask your healthcare professional. [employer] disclaims any warranty or liability for your use of this information. documented in this [id number] Miscellaneous Notes* Assessment & Plan Note - Mela Walker CNP - 03/18/2021 3:51 PM EDT Associated Problem(s): ADHD I have ordered a 90 day supply of your Adderall. This is a controlled substance which is regulated by the Federal government. To have this medication refilled, you must be seen in the office every 90days. You are also required to have a Controlled Substance Agreement signed and on file, as well asa urine drug screen - these need to be completed yearly. Continue current medications, Controlled Substance Agreement is on file and an OARRS report was checked today, you were given a 3 months supply, follow-up in the office as scheduled. documented in this [id number] History of Present illness Narrative* Mela Walker CNP - 03/10/2021 8:32 AM EDT VIDEO VISIT PROGRESS NOTE Frida Win is a 40 y.o. 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 [...] Friends and Family: Not on file Attends [employer] Services: Not on file Active Member of [...] a day Start: 05/06/21. Take 1 (one) tablet(30 mg total) by mouth 2 (two) times a day . DEXTROAMPHETAMINE-AMPHETAMINE (ADDERALL) 30 MG TABLET dextroamphetamine- amphetamine (ADDERALL) 30 mg tablet Take 1 (one) tablet (30 mg total) by mouth 2 (two) times a day Start: 04/08/21. Take 1 (one) tablet(30 mg total) by mouth 2 (two) times a day Start: 03/16/21. DEXTROAMPHETAMINE-AMPHETAMINE (ADDERALL) 30 MG TABLET dextroamphetamine- amphetamine [...] appearance. HENT: Nose: Nose normal. Mouth/Throat: Lips: Rochelle. Pulmonary: Effort: Pulmonary effort is normal. Musculoskeletal: [...] must be seen in the office every 90days. You are also required to have a Controlled Substance Agreement signed and on file, as well asa urine drug screen - these need to [...] 10 mg tablet Goals None Video Visit [facility] [address] [facility] [address] [facility] [id number] Video Visit [facility] 03/10/2021 Mela Walker CNP Provider Location: opg office or provider's home Patient Location Vice President Consulting Services: None Patient Location: Patient's Home Patient: Frida Win Date of : 1980 (40 y.o. female) PCP: Mela Walker CNP Video Visit Consent Statement: I discussed [...] there are inherent diagnostic limitations compared to hhuw-cq-gsck evaluations. We elected to proceed with the video visit telemedicine consultation. For any new medications prescribed today, patient was educated about indications for the medication, how to take the medication and potential side effects of the medications. documented in this [id number] Miscellaneous Notes* Assessment & Plan Note - Mela Walker CNP - 12/14/2020 3:43 PM EDT Associated Problem(s): ADHD I have ordered a [...] follow-up in the office as scheduled. . * Assessment & Plan Note - Mela Walker CNP - 12/14/2020 3:43 PM EDT Associated Problem(s): ANISH (generalized anxiety disorder) I have started you on Prozac for your anxiety. This medication can take 6-8 weeks for you to noticeany mood improvements. Please do not stop this medication suddenly as you could have some side effects which can include but not limited to: nausea, upset stomach, severe depression and suicidal thoughts. I would like to see you back in 12 weeks to assess how the medication is working for you. documented in this [id number] Instructions* Patient Instructions* Mela Walker, BULK FOLDER - 12/08/2020 11:11 AM EDT Images from [...] adulthood. Many adults don't know that they haveADHD until their children are diagnosed. Then they [...] it harder for them to deal with stress.These adults may overreact and have a short, [...] counseling. Or it may be a combination ofthese treatments. Medicines Stimulant medicines are most often [...] to: Get organized. A daily organizer or business planner can help these adults organize their [...] hyperactivity, or impulsiveness. But it can help withsome of the problems that go along with ADHD. These include not getting along well with others and having problems following rules. Where can you learn more? Log into your personal health record on [email or web address] and enter Z848 in the Education box to learn more about Learning About Attention Deficit Hyperactivity Disorder (ADHD) in Adults. Current as of: March 10, 2020 Content Version: 12.8 [employer], [employer]. Care instructions adapted under license by your healthcare professional. If you have questions about a medical condition or this instruction, always ask your healthcare professional. [employer], [facility] disclaims any warranty or liability for your use of this information. Anxiety Disorder: Care Instructions Your Care Instructions Anxiety is a normal reaction to stress. Difficult situations can cause you to have symptoms such assweaty palms and a nervous feeling. In an [...] a situation that makes you anxious, say kelley, This is not an emergency. I feel uncomfortable, but I am not in danger. I can keep goingeven if I feel anxious. Be kind to [...] do something you enjoy. Go to a funMVERSE movie, or take a walk or hike. Plan [...] help others. Being alone sometimes makes things seemworse than they are. Get at least 30 [...] the numbers for these national suicide hotlines: 4-563-204-TALK ( ) and 8-898-EPZFCJK ( ). If you or someone you [...] Log into your personal health record on [email or web address] and enter P754 in the Education box to learn more about Anxiety Disorder: Care Instructions. Current as of: March 10, 2020 Content Version: 12.8 [employer]ideMail. Care instructions adapted under license by your healthcare professional. If you have questions about a medical condition or this instruction, always ask your healthcare professional. [employer] disclaims any warranty or liability for your use of this information. documented in this [id number] History of Present illness Narrative* Mela Walker CNP - 12/08/2020 11:08 AM EDT OFFICE VISIT PROGRESS NOTE Frida Win is a 40 y.o. 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 Appetite: good Last Dose: yesterday Medication is keep safe within the home where the patient resides with children Anxiety Presents for follow-up visit. Patient reports no chest pain, depressed mood, dizziness, dry mouth, excessive worry, insomnia, irritability, nervous/anxious behavior, palpitations, panic, restlessnessor shortness of breath. Symptoms occur rarely. The [...] Social Gatherings with Friends and Family: Attends Anglican Services: Active Member of Clubs or Organizations: [...] and Memory: Cognition normal. Judgment: Judgment normal. OARRS/NARxCSOLCK Report Received and Assessed: 08/26/2020 Date controlled substance agreement signed: 06/01/2020 Date of last drug screen: 06/01/2020 Functional Assessment: No data found The ASCVD Risk score (Sparkman SHEYLA Avila., et al., 2013) failed to [...] can take 6-8 weeks for you to noticeany mood improvements. Please do not stop this [...] made it for you to do your work,take care of things at home, or get along with other people? Somewhat difficult Not difficult at all documented in this encounterOhioHealthChief complaint+Reason for visit Narrative * Chief Complaint [facility]-C[facility] 19 REQ UIRED TESTING COVID TEST COVID-19 [facility]-COVID 19 REQUIRED TESTING [facility]-COVID 19 REQUIRED TESTING [facility]-COVID 19 REQUIRED TESTING Reason for Visit Common cold Encounter for screening for COVID-[address] [facility] Work Phone: Chief complaint+Reason for visit Narrative* Chief Complaint COVID TEST COVID-19 [facility]-C[facility] 19 REQUIRED TESTING [facility]-COVID 19 REQUIRED TESTING [facility]-COVID 19 REQUIRED TESTING [facility]-COVID 19 REQUIRED TESTING Reason for Visit Common cold Encounter for screening for COVID-[address] [facility] Work Phone: Discharge summary Author Deonte Beckett [facility] Note Date/Time December 08, 2024 11:1 9am [facility] Medical Records Department [address] [place] [address] Emergency Department Summary 12/08/24 MR#: [id number] Acct: [id number] Name: FRIDA WIN Rep #:[id number] : 1980 44 From: Deonte Beckett DO PCP: FILIBERTO Cooper Status:REG ER Location: ED HPI History of Present Illness Chief Complaint: Dizziness Narrative Narrative: Patient is a 44-year-old female with past medical history of anemia, vitamin D deficiency, hidradenitis suppurativa, headaches who presents to the emergency department with a chief complaint of lightheadedness and not feeling well. States that she got to work this morning and that while standing discussing withstaff she states that she became very lightheaded and felt like she may pass outshe states that she has not had anything happen like this before. In the triagenote states that she had dizzy when inquiring about this she states that she wasnot dizzy things were not spinning around she was not spinning around she felt very lightheaded and felt like she was developing tunnel vision. Patient statesthat she did get nauseous and vomited. Patient states that she drink plenty of fluids through the weekend which she states is unusual for her. Denies any sickcontacts. Denies any recent travels denies any history of blood clots. Patientstates that she does have a mild headache but notes that this is not unusual forher. [facility] Medical History Encounter for Essure implantation Hidradenitis suppurativa Vitamin D deficiency Anemia URI (upper respiratory infection) Home Medications ?Medication ?Instructions ?Recorded ?Last Taken ?Type lamotrigine 100 mg tablet 100 mg PO QDAY 09/16/24 Unkn own History lisdexamfetamine 40 mg capsule 40 mg PO QDAY 09/16/24 Unknown History (Vyvanse) pantoprazole 40 mg tablet,delayed 40 mg PO QDAY Unknown History release rimegepant 75 mg disintegrating 75 mg PO ONCE PRN 07/12 Unknown History tablet (Nurtec ODT) sertraline 100 mg tablet (Zoloft) 100 mg PO QDAY 09/16 Unknown History topiramate 25 mg sprinkle capsule PO 09/16/24 Unknown History Allergy/AdvReac Type Severity Reaction Status Date / Time amoxicillin (From Augmentin) Allergy Shortness Verified 12/08/24 07:13 of breath clavulanic acid (From Allergy Shortness Verified 12/08/24 07:13 Augmentin) of breath Family History Mother Anemia Anxiety Rheumatoid arthritis Depression Hypertension Hormone imbalance Mental disorder Osteoporosis Brother Asthma Grandmother Arthritis Sister Factor 5 Leiden mutation, heterozygous Depression Aunt Cervical cancer Father Diabetes Hypertension Grandmother Parkinson disease Surgical History H/O: hysterectomy Social History adopted: No number of children: 3 current occupational status: employed 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 sexually active: Yes Smoking Status: Light Smoker (<10/day) alcohol intake: current alcohol intake frequency: holidays/special occasions only substance use type: does not use what type of physical activity do you participate in: walking seatbelt use: always do you feel safe at home: Yes additional social history: [place]- Boyfriend ROS ROS ED ROS Narrative Constitutional: Complains of lightheadedness as noted above and headache denies fever, chills, dizziness Eyes: Denies change in vision double vision blurry vision Cardiovascular: Denies chest pain Respiratory: Denies coughing wheezing shortness of breath Abdomen: Complains of nausea vomiting as noted above denies abdominal pain : Denies urinary symptoms Neurological: Denies numbness, weakness, tingling Musculoskeletal: Denies back pain Skin: Denies any rashes or lesions EXAM Physical Exam Narrative Exam Narrative: General: Patient was lying in bed rest comfortably did not appear to be acute distress Head: Atraumatic, normocephalic Eyes: PERRL bilaterally, EOMI bilateral, no conjunctival injection noted Neck: Soft, supple, trachea midline Cardiovascular: Regular rate and rhythm no murmurs gallops rubs noted Respiratory: Clear to auscultation bilaterally no rales rhonchi or wheezes noted Abdomen: Soft, nondistended, nontender to palpation Extremities: +5/5 strength noted in the bilateral upper and lower extremities, radial pulses +2/4 in the bilateral extremities, no pedal edema on exam Neurological: Patient follow commands knew that she was at [facility] the year is 2024. NIH is 0 GCS 15 patient completed finger-nose testing bilaterallywithout any difficulty Skin: Warm, dry, intact no rashes or lesions noted Const Vital Signs: 12/08/24 07:11 12/08/24 07:53 12/08/24 09:11 Temperature 97.6 F L Temperature Source Temporal Pulse Rate 81 Pulse Rate [Lying] 74 Pulse Rate [Sitting (for 1 minute prior to obtaining)] 81 Pulse Rate [Standing (for 1 minute prior to obtaining)] 78 Respiratory Rate 16 Blood Pressure 141/83 H 124/76 H Blood Pressure [Lying] 117/76 Blood Pressure [Sitting (for 1 minute prior to obtaining)] 134/76 H Blood Pressure [Standing (for 1 minute prior to obtaining)] 126/85 H Blood Pressure Mean 102 92 Blood Pressure Mean [Lying] 89 Blood Pressure Mean [Sitting (for 1 minute prior to obtaining)] 95 Blood Pressure Mean [Standing (for 1 minute prior to obtaining)] 98 Pulse Ox 97 Oxygen Delivery Method Room Air MDM MDM MDM Narrative Medical decision making narrative: Patient is a 44-year-old female who presented to the emergency department the chief complaint of lightheadedness, nausea and vomiting. On the differential diagnosis includes but not limited to ACS, viral gastroenteritis, PE although feel this less likely based on revised [place] score, pancreatitis, orthostatic hypotension, vasovagal syncope/near syncope. Once workup is obtained reviewed she will be reevaluated. Orthostatic vital signs will be checked. Patient be given IV fluids for hydration. Patient be given Reglan. [place] Score (Revised) for Pulmonary Embolism from [employer].USConnect on 12/08/2024 All calculations should be rechecked by clinician prior to use RESULT SUMMARY: 3 points Low risk group: 7-9% incidence of PE from several studies. INPUTS: Age >65 ?> 0 = No Previous DVT or PE ?> 0 = No Surgery (under general anesthesia) or lower limb fracture in past month ?> 0 = No Active malignant condition ?> 0 = No Unilateral lower limb pain ?> 0 = No Hemoptysis ?> 0 = No Heart rate ?> 3 = 75-94 Pain on lower limb palpation and unilateral edema ?> 0 = No Patient's CBC reviewed and showed no evidence leukocytosis white blood count normal at 9.8, hemoglobin 14.4, platelet count of 367. Patient sodium was 135, potassium 4.5, creatinine normal at 0.68. Patient's AST and ALT were 19 and 13 respectively, troponin was less than 6 with a delta troponin less than 6. Patient's EKG showed sinus rhythm with a rate of 74 bpm. Patient lipase normal at 15, TSH normal at 0.67 and a free T4 and T3 normal at 1.10 and 3.3 respectively. Patient's test was negative. Patient's chest x-ray reviewed by myself by radiology showed no acute cardiopulmonary processes. Patient ambulated several times to the bathroom without any difficulty orthostatic vital signs negative. Patient was ambulated with pulse ox and had no tachycardia no hypoxia. On reevaluation the patient she is feeling much improved and would like to go home at this point time. She is advised to hydrate with plenty of fluids including water. She is encouraged return with worsening symptoms or concerns otherwise she is to follow-up with her doctor in outpatient setting. She is agreeable to plan all question concerns answered she was discharged home in stable condition. Lab Data Labs: Laboratory Results - last 24 hr 12/08/24 12/08/24 08:07 10:00 WBC 9.8 RBC 5.56 H Hgb 14.4 Hct 44.9 MCV 80.8 L MCH 25.9 L MCHC 32.1 RDW Std Deviation 42.7 RDW Coeff of Jo 14.6 Plt Count 367 MPV 9.5 Immature Gran % (Auto) 0.500 Neut % (Auto) 76.0 H Lymph % (Auto) 17.8 L Bollinger % (Auto) 4.0 Eos % (Auto) 1.1 Baso % (Auto) 0.6 Absolute Neuts (auto) 7.4 Absolute Lymphs (auto) 1.74 Nucleated RBC % 0 Sodium 135 Potassium 4.5 Chloride 101 Carbon Dioxide 22.8 Anion Gap 11 BUN 9 Creatinine 0.68 L Estim Creat Clear Calc 127.80 Est GFR (MDRD) Non-Af 111 BUN/Creatinine Ratio 12.6 Glucose 118 H Calcium 9.1 Total Bilirubin 0.37 AST 19 ALT 13 Alkaline Phosphatase 81 Troponin T High Sens < 6 Troponin T Hi Sens 2 Hr < 6 Total Protein 7.4 Albumin 4.0 Globulin 3.4 Albumin/Globulin Ratio 1.2 Lipase 15 TSH 0.674 Free T4 1.10 Free T3 pg/dL 3.3 Serum , Qual NEGATIVE Radiography Diagnostic Testing: Clinical Impression(s) from Imaging Studies Chest X-Ray 12/08/24 08:25 IMPRESSION: No evidence of pneumoperitoneum. Chronic lung changes are seen, but no acute pneumonic process is clearly appreciated. No pleural effusion or pneumothorax is seen. The cardiomediastinal silhouette is within the normal range, and unchanged. No acute osseous process is seen. Reading Location: [place] [address] Discharge Plan Triage Chief Complaint: Dizziness ED Provider: Deonte Beckett Dx/Rx/DC Orders Clinical Impression: Near syncope Prescriptions: No Action lisdexamfetamine [Vyvanse] 40 mg capsule 40 mg PO QDAY Nurtec ODT 75 mg tablet,disintegrating 75 mg PO ONCE PRN Rx Instructions: as a single dose sertraline [Zoloft] 100 mg tablet 100 mg PO QDAY lamotrigine 100 mg tablet 100 mg PO QDAY pantoprazole 40 mg tablet,delayed release (DR/EC) 40 mg PO QDAY topiramate 25 mg capsule, sprinkle PO Primary Care Provider: eMla Walker Referrals: Mela Walker NP-C [Primary Care Provider] - Activity Restrictions/Additional Instructions: Follow-up with your doctor in the outpatient setting. Return with worsening symptoms or concerns. Your cardiac workup did not show any acute findings your EKG was normal your chest x-ray did not show any acute findings either. Return with worsening symptoms or any other concerns. Print Language: Palestinian Disposition Disposition: Home, Self Care What to do if you have Problems For any increased pain, shortness of breath, bleeding, nausea or vomiting, chestpain, or any unexpected problems, contact your Primary Care Provider. Call [facility] ([phone]) or report to the closest Emergency Room. Call 911 if necessary. 12/08/24 1119 <Electronically signed by Deonte Beckett DO> Cosigner Signature (if applicable): CC: FILIBERTO Walker ~ Signed [facility] Work Phone: Evaluation note* Diagnosis Attention deficit hyperactivity disorder (ADHD), unspecified ADHD type- Primary ANISH (generalized anxiety disorder) Generalized anxiety disorder [facility]* [...] [facility]* Diagnosis Onset Date Resolution Status Common cold acute Encounter for screening for COVID-[address] [facility] Work Phone: Evaluation noteNo assessment information available [facility] Work Phone: evaluation note* Diagnosis Depression, unspecified depression type- Primary [...] [facility]* Diagnosis Onset Date Resolution Status Neck pain acute Segmental and somatic dysfunction of cervical region acute Segmental and somatic dysfunction of lumbar region acute Segmental and somatic dysfunction of pelvic region acute Segmental and somatic dysfunction of thoracic region acute [facility] Work Phone: Evaluation note* Diagnosis Onset Date Resolution Status Neck pain acute Segmental and somatic dysfunction of cervical region acute Segmental and somatic dysfunction of lumbar region acute Segmental and somatic dysfunction of pelvic region acute Segmental and somatic dysfunction of thoracic region acute Neck pain acute Segmental and somatic dysfunction of cervical region acute Segmental and somatic dysfunction of lumbar region acute Segmental and somatic dysfunction of pelvic region acute Segmental and somatic dysfunction of thoracic region acute Back pain noneactive [facility] Work Phone: Evaluation note* Diagnosis Attention deficit hyperactivity disorder (ADHD), predominantly inattentive type Vitamin D deficiency Iron deficiency Disorders of iron metabolism Intractable migraine with aura without status migrainosus Depression, unspecified depression type [facility]* Diagnosis Attention deficit hyperactivity disorder (ADHD), predominantly inattentive type [facility]* Diagnosis Attention deficit hyperactivity disorder (ADHD), predominantly inattentive type Depression, unspecified depression type Intractable migraine with aura without status migrainosus [facility]* Diagnosis Attention deficit hyperactivity disorder (ADHD), predominantly inattentive type [facility]* Diagnosis Attention deficit hyperactivity disorder (ADHD), predominantly inattentive type- Primary [facility]* Diagnosis Well adult exam- Primary Routine general medical examination at a health care facility Attention deficit hyperactivity disorder (ADHD), predominantly inattentive type Therapeutic drug monitoring Encounter for therapeutic drug monitoring Screening mammogram for breast cancer Morbid obesity with BMI of 40.0-44.9, adult (HCC) Dyslipidemia, goal LDL below 100 [facility] Encounter for well adult exam without abnormal findings- Primary Attention deficit hyperactivity disorder (ADHD), unspecified ADHD type Attention deficit hyperactivity disorder (ADHD), unspecified ADHD type Attention deficit hyperactivity disorder (ADHD), unspecified ADHD type Attention deficit hyperactivity disorder (ADHD), 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), unspecified ADHD type Well adult exam- Primary Routine general medical examination at a health care facility Attention deficit hyperactivity disorder (ADHD), unspecified ADHD type Screening for lipid disorders Depression, unspecified depression type- Primary Attention deficit hyperactivity disorder (ADHD), unspecified ADHD type Mood disorder Unspecified episodic mood disorder Attention deficit hyperactivity disorder (ADHD), unspecified ADHD type Attention deficit hyperactivity disorder (ADHD), unspecified ADHD type- Primary ANISH (generalized anxiety disorder) Generalized anxiety disorder Attention deficit hyperactivity disorder (ADHD), predominantly inattentive type Well adult exam- Primary Routine general medical examination at a health care facility Attention deficit hyperactivity disorder (ADHD), 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), predominantly inattentive type ANISH (generalized anxiety disorder) Generalized anxiety disorder Depression, unspecified depression type- Primary Attention deficit hyperactivity disorder (ADHD), predominantly inattentive type Intractable migraine with aura without status migrainosus Screening mammogram for breast cancer Well adult exam- Primary Routine general medical examination at a health care [facility] Intractable migraine with aura without status migrainosus Vitamin D deficiency Screening for thyroid disorder Encounter for lipid screening for cardiovascular disease Iron deficiency 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), predominantly inattentive type Mood disorder Unspecified episodic mood disorder Mood disorder- Primary Unspecified episodic mood disorder Intractable migraine with aura without status migrainosus Depression, unspecified depression type Attention deficit hyperactivity disorder (ADHD), predominantly inattentive type Vitamin D deficiency Screening for thyroid disorder Encounter for lipid screening for cardiovascular disease Iron deficiency Disorders of iron metabolism Well adult exam Routine general medical examination at a health care facility Attention deficit hyperactivity disorder (ADHD), predominantly inattentive type Mood disorder Unspecified episodic mood disorder Attention deficit hyperactivity disorder (ADHD), predominantly inattentive type Vitamin D deficiency Intractable migraine with aura without status migrainosus Well adult exam- Primary Routine general medical examination at a health care facility Iron deficiency 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), 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), predominantly inattentive type Vitamin D deficiency Iron deficiency Disorders of iron metabolism Intractable migraine with aura without status migrainosus Depression, unspecified depression type Attention deficit hyperactivity disorder (ADHD), predominantly inattentive type Depression, unspecified depression type Intractable migraine with aura without status migrainosus Well adult exam- Primary Routine general medical examination at a health care facility Attention deficit hyperactivity disorder (ADHD), predominantly inattentive type Therapeutic drug monitoring Encounter for therapeutic drug monitoring Screening mammogram for breast cancer Morbid obesity with BMI of 40.0-44.9, adult (HCC) Dyslipidemia, goal LDL below 100 Intractable migraine with aura without status migrainosus Attention deficit hyperactivity disorder (ADHD), predominantly inattentive type [facility] Diagnosis Encounter for well adult exam without abnormal findings- Primary Attention deficit hyperactivity disorder (ADHD), unspecified ADHD type Attention deficit hyperactivity disorder (ADHD), unspecified ADHD type Attention deficit hyperactivity disorder (ADHD), unspecified ADHD type Attention deficit hyperactivity disorder (ADHD), 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), unspecified ADHD type Well adult exam- Primary Routine general medical examination at a health care facility Attention deficit hyperactivity disorder (ADHD), unspecified ADHD type Screening for lipid disorders Depression, unspecified depression type- Primary Attention deficit hyperactivity disorder (ADHD), unspecified ADHD type Mood disorder Unspecified episodic mood disorder Attention deficit hyperactivity disorder (ADHD), unspecified ADHD type Attention deficit hyperactivity disorder (ADHD), unspecified ADHD type- Primary ANISH (generalized anxiety disorder) Generalized anxiety disorder Attention deficit hyperactivity disorder (ADHD), predominantly inattentive type Well adult exam- Primary Routine general medical examination at a health care facility Attention deficit hyperactivity disorder (ADHD), 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), predominantly inattentive type ANISH (generalized anxiety disorder) Generalized anxiety disorder Depression, unspecified depression type- Primary Attention deficit hyperactivity disorder (ADHD), predominantly inattentive type Intractable migraine with aura without status migrainosus Screening mammogram for breast cancer Well adult exam- Primary Routine general medical examination at a health care facility Intractable migraine with aura without status migrainosus Vitamin D deficiency Screening for thyroid disorder Encounter for lipid screening for cardiovascular disease Iron deficiency 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), predominantly inattentive type Mood disorder Unspecified episodic mood disorder Mood disorder- Primary Unspecified episodic mood disorder Intractable migraine with aura without status migrainosus Depression, unspecified depression type Attention deficit hyperactivity disorder (ADHD), predominantly inattentive type Vitamin D deficiency Screening for thyroid disorder Encounter for lipid screening for cardiovascular disease Iron deficiency Disorders of iron metabolism Well adult exam Routine general medical examination at a health care facility Attention deficit hyperactivity disorder (ADHD), predominantly inattentive type Mood disorder Unspecified episodic mood disorder Attention deficit hyperactivity disorder (ADHD), predominantly inattentive type Vitamin D deficiency Intractable migraine with aura without status migrainosus Well adult exam- Primary Routine general medical examination at a health care facility Iron deficiency 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), 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), predominantly inattentive type Vitamin D deficiency Iron deficiency Disorders of iron metabolism Intractable migraine with aura without status migrainosus Depression, unspecified depression type Attention deficit hyperactivity disorder (ADHD), predominantly inattentive type Depression, unspecified depression type Intractable migraine with aura without status migrainosus Well adult exam- Primary Routine general medical examination at a health care facility Attention deficit hyperactivity disorder (ADHD), predominantly inattentive type Therapeutic drug monitoring Encounter for therapeutic drug monitoring Screening mammogram for breast cancer Morbid obesity with BMI of 40.0-44.9, adult (HCC) Dyslipidemia, goal LDL below 100 Attention deficit hyperactivity disorder (ADHD), predominantly inattentive type [facility] Diagnosis Encounter for well adult exam without abnormal findings- Primary Attention deficit hyperactivity disorder (ADHD), unspecified ADHD type Attention deficit hyperactivity disorder (ADHD), unspecified ADHD type Attention deficit hyperactivity disorder (ADHD), unspecified ADHD type Attention deficit hyperactivity disorder (ADHD), 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), unspecified ADHD type Well adult exam- Primary Routine general medical examination at a health care facility Attention deficit hyperactivity disorder (ADHD), unspecified ADHD type Screening for lipid disorders Depression, unspecified depression type- Primary Attention deficit hyperactivity disorder (ADHD), unspecified ADHD type Mood disorder Unspecified episodic mood disorder Attention deficit hyperactivity disorder (ADHD), unspecified ADHD type Attention deficit hyperactivity disorder (ADHD), unspecified ADHD type- Primary ANISH (generalized anxiety disorder) Generalized anxiety disorder Attention deficit hyperactivity disorder (ADHD), predominantly inattentive type Well adult exam- Primary Routine general medical examination at a health care facility Attention deficit hyperactivity disorder (ADHD), 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), predominantly inattentive type ANISH (generalized anxiety disorder) Generalized anxiety disorder Depression, unspecified depression type- Primary Attention deficit hyperactivity disorder (ADHD), predominantly inattentive type Intractable migraine with aura without status migrainosus Screening mammogram for breast cancer Well adult exam- Primary Routine general medical examination at a health care facility Intractable migraine with aura without status migrainosus Vitamin D deficiency Screening for thyroid disorder Encounter for lipid screening for cardiovascular disease Iron deficiency 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), predominantly inattentive type Mood disorder Unspecified episodic mood disorder Mood disorder- Primary Unspecified episodic mood disorder Intractable migraine with aura without status migrainosus Depression, unspecified depression type Attention deficit hyperactivity disorder (ADHD), predominantly inattentive type Vitamin D deficiency Screening for thyroid disorder Encounter for lipid screening for cardiovascular disease Iron deficiency Disorders of iron metabolism Well adult exam Routine general medical examination at a health care facility Attention deficit hyperactivity disorder (ADHD), predominantly inattentive type Mood disorder Unspecified episodic mood disorder Attention deficit hyperactivity disorder (ADHD), predominantly inattentive type Vitamin D deficiency Intractable migraine with aura without status migrainosus Well adult exam- Primary Routine general medical examination at a health care facility Iron deficiency 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), 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), predominantly inattentive type Vitamin D deficiency Iron deficiency Disorders of iron metabolism Intractable migraine with aura without status migrainosus Depression, unspecified depression type Attention deficit hyperactivity disorder (ADHD), predominantly inattentive type Depression, unspecified depression type Intractable migraine with aura without status migrainosus Well adult exam- Primary Routine general medical examination at a health care [facility] Attention deficit hyperactivity disorder (ADHD), predominantly inattentive type Therapeutic drug monitoring Encounter for therapeutic drug monitoring Screening mammogram for breast cancer Morbid obesity with BMI of 40.0-44.9, adult (HCC) Dyslipidemia, goal LDL below 100 Vitamin D deficiency Depression, unspecified depression type Attention deficit hyperactivity disorder (ADHD), predominantly inattentive type [facility] Diagnosis Encounter for well adult exam without abnormal findings- Primary Attention deficit hyperactivity disorder (ADHD), unspecified ADHD type Attention deficit hyperactivity disorder (ADHD), unspecified ADHD type Attention deficit hyperactivity disorder (ADHD), unspecified ADHD type Attention deficit hyperactivity disorder (ADHD), 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), unspecified ADHD type Well adult exam- Primary Routine general medical examination at a health care facility Attention deficit hyperactivity disorder (ADHD), unspecified ADHD type Screening for lipid disorders Depression, unspecified depression type- Primary Attention deficit hyperactivity disorder (ADHD), unspecified ADHD type Mood disorder Unspecified episodic mood disorder Attention deficit hyperactivity disorder (ADHD), unspecified ADHD type Attention deficit hyperactivity disorder (ADHD), unspecified ADHD type- Primary ANISH (generalized anxiety disorder) Generalized anxiety disorder Attention deficit hyperactivity disorder (ADHD), 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), 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), predominantly inattentive type ANISH (generalized anxiety disorder) Generalized anxiety disorder Depression, unspecified depression type- Primary Attention deficit hyperactivity disorder (ADHD), predominantly inattentive type Intractable migraine with aura without status migrainosus Screening mammogram for breast cancer Well adult exam- Primary Routine general medical examination at a health care facility Intractable migraine with aura without status migrainosus Vitamin D deficiency Screening for thyroid disorder Encounter for lipid screening for cardiovascular disease Iron deficiency 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), predominantly inattentive type Mood disorder Unspecified episodic mood disorder Mood disorder- Primary Unspecified episodic mood disorder Intractable migraine with aura without status migrainosus Depression, unspecified depression type Attention deficit hyperactivity disorder (ADHD), predominantly inattentive type Vitamin D deficiency Screening for thyroid disorder Encounter for lipid screening for cardiovascular disease Iron deficiency Disorders of iron metabolism Well adult exam Routine general medical examination at a health care facility Attention deficit hyperactivity disorder (ADHD), predominantly inattentive type Mood disorder Unspecified episodic mood disorder Attention deficit hyperactivity disorder (ADHD), predominantly inattentive type Vitamin D deficiency Intractable migraine with aura without status migrainosus Well adult exam- Primary Routine general medical examination at a health care facility Iron deficiency 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), 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), predominantly inattentive type Vitamin D deficiency Iron deficiency Disorders of iron metabolism Intractable migraine with aura without status migrainosus Depression, unspecified depression type Attention deficit hyperactivity disorder (ADHD), predominantly inattentive type Depression, unspecified depression type Intractable migraine with aura without status migrainosus Well adult exam- Primary Routine general medical examination at a health care facility Attention deficit hyperactivity disorder (ADHD), predominantly inattentive type Therapeutic drug monitoring Encounter for therapeutic drug monitoring Screening mammogram for breast cancer Morbid obesity with BMI of 40.0-44.9, adult (HCC) Dyslipidemia, goal LDL below 100 Attention deficit hyperactivity disorder (ADHD), predominantly inattentive type- Primary Depression, unspecified depression type [facility] Diagnosis Encounter for well adult exam without abnormal findings- Primary Attention deficit hyperactivity disorder (ADHD), unspecified ADHD type Attention deficit hyperactivity disorder (ADHD), unspecified ADHD type Attention deficit hyperactivity disorder (ADHD), unspecified ADHD type Attention deficit hyperactivity disorder (ADHD), 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), unspecified ADHD type Well adult exam- Primary Routine general medical examination at a health care facility Attention deficit hyperactivity disorder (ADHD), unspecified ADHD type Screening for lipid disorders Depression, unspecified depression type- Primary Attention deficit hyperactivity disorder (ADHD), unspecified ADHD type Mood disorder Unspecified episodic mood disorder Attention deficit hyperactivity disorder (ADHD), unspecified ADHD type Attention deficit hyperactivity disorder (ADHD), unspecified ADHD type- Primary ANISH (generalized anxiety disorder) Generalized anxiety disorder Attention deficit hyperactivity disorder (ADHD), 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), 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), predominantly inattentive type ANISH (generalized anxiety disorder) Generalized anxiety disorder Depression, unspecified depression type- Primary Attention deficit hyperactivity disorder (ADHD), predominantly inattentive type Intractable migraine with aura without status migrainosus Screening mammogram for breast cancer Well adult exam- Primary Routine general medical examination at a health care [facility] Intractable migraine with aura without status migrainosus Vitamin D deficiency Screening for thyroid disorder Encounter for lipid screening for cardiovascular disease Iron deficiency 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), predominantly inattentive type Mood disorder Unspecified episodic mood disorder Mood disorder- Primary Unspecified episodic mood disorder Intractable migraine with aura without status migrainosus Depression, unspecified depression type Attention deficit hyperactivity disorder (ADHD), predominantly inattentive type Vitamin D deficiency Screening for thyroid disorder Encounter for lipid screening for cardiovascular disease Iron deficiency Disorders of iron metabolism Well adult exam Routine general medical examination at a health care facility Attention deficit hyperactivity disorder (ADHD), predominantly inattentive type Mood disorder Unspecified episodic mood disorder Attention deficit hyperactivity disorder (ADHD), predominantly inattentive type Vitamin D deficiency Intractable migraine with aura without status migrainosus Well adult exam- Primary Routine general medical examination at a health care facility Iron deficiency 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), 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), predominantly inattentive type Vitamin D deficiency Iron deficiency Disorders of iron metabolism Intractable migraine with aura without status migrainosus Depression, unspecified depression type Attention deficit hyperactivity disorder (ADHD), predominantly inattentive type Depression, unspecified depression type Intractable migraine with aura without status migrainosus Well adult exam- Primary Routine general medical examination at a health care facility Attention deficit hyperactivity disorder (ADHD), predominantly inattentive type Therapeutic drug monitoring Encounter for therapeutic drug monitoring Screening mammogram for breast cancer Morbid obesity with BMI of 40.0-44.9, adult (HCC) Dyslipidemia, goal LDL below 100 Attention deficit hyperactivity disorder (ADHD), predominantly inattentive type- Primary Depression, unspecified depression type Attention deficit hyperactivity disorder (ADHD), predominantly inattentive type [facility] Diagnosis Encounter for well adult exam without abnormal findings- Primary Attention deficit hyperactivity disorder (ADHD), unspecified ADHD type Attention deficit hyperactivity disorder (ADHD), unspecified ADHD type Attention deficit hyperactivity disorder (ADHD), unspecified ADHD type Attention deficit hyperactivity disorder (ADHD), 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), unspecified ADHD type Well adult exam- Primary Routine general medical examination at a health care facility Attention deficit hyperactivity disorder (ADHD), unspecified ADHD type Screening for lipid disorders Depression, unspecified depression type- Primary Attention deficit hyperactivity disorder (ADHD), unspecified ADHD type Mood disorder Unspecified episodic mood disorder Attention deficit hyperactivity disorder (ADHD), unspecified ADHD type Attention deficit hyperactivity disorder (ADHD), unspecified ADHD type- Primary ANISH (generalized anxiety disorder) Generalized anxiety disorder Attention deficit hyperactivity disorder (ADHD), 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), 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), predominantly inattentive type ANISH (generalized anxiety disorder) Generalized anxiety disorder Depression, unspecified depression type- Primary Attention deficit hyperactivity disorder (ADHD), predominantly inattentive type Intractable migraine with aura without status migrainosus Screening mammogram for breast cancer Well adult exam- Primary Routine general medical examination at a health care facility Intractable migraine with aura without status migrainosus Vitamin D deficiency Screening for thyroid disorder Encounter for lipid screening for cardiovascular disease Iron deficiency 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), predominantly inattentive type Mood disorder Unspecified episodic mood disorder Mood disorder- Primary Unspecified episodic mood disorder Intractable migraine with aura without status migrainosus Depression, unspecified depression type Attention deficit hyperactivity disorder (ADHD), predominantly inattentive type Vitamin D deficiency Screening for thyroid disorder Encounter for lipid screening for cardiovascular disease Iron deficiency Disorders of iron metabolism Well adult exam Routine general medical examination at a health care facility Attention deficit hyperactivity disorder (ADHD), predominantly inattentive type Mood disorder Unspecified episodic mood disorder Attention deficit hyperactivity disorder (ADHD), predominantly inattentive type Vitamin D deficiency Intractable migraine with aura without status migrainosus Well adult exam- Primary Routine general medical examination at a health care facility Iron deficiency 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), 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), predominantly inattentive type Vitamin D deficiency Iron deficiency Disorders of iron metabolism Intractable migraine with aura without status migrainosus Depression, unspecified depression type Attention deficit hyperactivity disorder (ADHD), predominantly inattentive type Depression, unspecified depression type Intractable migraine with aura without status migrainosus Well adult exam- Primary Routine general medical examination at a health care facility Attention deficit hyperactivity disorder (ADHD), predominantly inattentive type Therapeutic drug monitoring Encounter for therapeutic drug monitoring Screening mammogram for breast cancer Morbid obesity with BMI of 40.0-44.9, adult (HCC) Dyslipidemia, goal LDL below 100 Attention deficit hyperactivity disorder (ADHD), predominantly inattentive type- Primary Depression, unspecified depression type Attention deficit hyperactivity disorder (ADHD), predominantly inattentive type documented in [facility] Additional Instructions Follow-up with your doctor in the outpatient setting. Return with worsening symptoms or concerns. Your cardiac workup did not show any acute findings your EKG was normal your chest x-ray did not show any acute findings either. Return with worsening symptoms or any other concerns.[facility] Work Phone: Instructions* Attachments The following attachments cannot be sent through Care Everywhere. * ADHD: Adults: General Info (Palestinian) * Depression: Chronic Disease (Palestinian) * Migraine Headache (Palestinian) documented in this encounterOhioHealthInstructions* Attachments The following attachments cannot be sent through Care Everywhere. * ADHD: Adults: General Info (Palestinian) documented in this encounterOhioHealthInstructions* Attachments The following attachments cannot be sent through Care Everywhere. * Well Visit: 18 to 65 Years (Palestinian) * ADHD: Adults: General Info (Palestinian) documented in this encounterOhioHealthInstructions* Attachments The following attachments cannot be sent through Care Everywhere. * Depression: Chronic Disease (Palestinian) * Vitamin D: General Info (Palestinian) * ADHD: Adults: General Info (Palestinian) documented in this encounterOhioHealthInstructions* Attachments The following attachments cannot be sent through Care Everywhere. * Migraine Headache (Palestinian) * Depression: Chronic Disease (Palestinian) * ADHD: Adults: General Info (Palestinian) documented in this encounterOhioHealthInstructions* Attachments The following attachments cannot be sent through Care Everywhere. * Well Visit: 18 to 65 Years (Palestinian) * ADHD: Adults: General Info (Palestinian) documented in this encounterOhioHealthInstructions* Attachments The following attachments cannot be sent through Care Everywhere. * ADHD: Adults: General Info (Palestinian) * Depression: Treatment (Palestinian) documented in this encounterOhioHealthReason for referral (narrative)No reason for referral information availableWLake County Memorial [facility] Work Phone: Summary Purpose Family History Relationship Condition Age at Onset Recorded Date/T bing mother Anemia Unknown Anxiety Unknown Rheumatoid arthritis Unknown Depression Unknown Hypertension Unknown Disorder of endocrine system Unknown Mental disorder Unknown Osteoporosis Unknown brother Asthma Unknown grandmother Arthritis Unknown sister Heterozygous factor V Leiden mutation Unk nown aunt Malignant neoplasm of cervix Unknown father Diabetes mellitus Unknown grandmother Parkinson's disease Unknown Advance Directives Documents on File Type Date Recorded Patient Senior Research Associate Expl anation Advance Directives and Living Will Documents on File Type Date Recorded Patient Senior Research Associate Expl anation Advance Directives and Livin g Will 10/03/2019 8:18 AM Advance Directive Response Recorded Date/ Time Living Will No June 26 2 1:24pm Power of Grey Tender No June 26, 2 022 1:24pm Advance Directive Response Recorded Date/ Time Living Will No June 26 2 12:24pm Power of Grey Tender No June 26, 2 022 12:24pm Advance Directive Response Recorded Date/ Time Do you have a Healthcare Power of Grey Tender? No December 08, 2024 8:04am Instructions * Patient Instructions* Barbara Castillo, BULK FOLDER - 08/09/2018 8:51 AM EST Problem List [...] is very common. It usually starts in sports photographer. Many adults don't realize they have it [...] Log into your personal health record on [email or web address] and enter B196 in the Education box to learn more about Attention Deficit Hyperactivity Disorder (ADHD) in Adults: Care Instructions. Current as of: February 26, 2018 Content Version: 11.9 1739-7039 SlideMail. Care instructions adapted under license by your healthcare professional. If you have questions about a medical condition or this instruction, always ask your healthcare professional. [employer] disclaims any warranty or liability for your [...] is very common. It usually starts in sports photographer. Many adults don't realize they have it [...] Log into your personal health record on [email or web address] and enter B196 in the Education box to learn more about Attention Deficit Hyperactivity Disorder (ADHD) in Adults: Care Instructions. Current as of: February 26, 2018 Content Version: 11.9 3703-2477 SlideMail. Care instructions adapted under license by your healthcare professional. If you have questions about a medical condition or this instruction, always ask your healthcare professional. [employer] disclaims any warranty or liability for your use of this information. in this encounter* Patient Instructions* Barbara Cruz CNP - 11/13/2018 3:20 PM EDT Problem [...] is very common. It usually starts in sports photographer. Many adults don't realize they have it [...] Log into your personal health record on [email or web address] and enter B196 in the Education box to learn more about Attention Deficit Hyperactivity Disorder (ADHD) in Adults: Care Instructions. Current as of: February 26, 2018 Content Version: 12.0 6477-7346 SlideMail. Care instructions adapted under license by your healthcare professional. If you have questions about a medical condition or this instruction, always ask your healthcare professional. [employer]Mail disclaims any warranty or liability for your use of this information. documented in this encounter* Patient Instructions* Barbara Cruz CNP - 02/21/2019 1:53 PM EDT Problem [...] is very common. It usually starts in sports photographer. Many adults don't realize they have it [...] Log into your personal health record on [email or web address] and enter B196 in the Education box to learn more about Attention Deficit Hyperactivity Disorder (ADHD) in Adults: Care Instructions. Current as of: February 26, 2018 Content Version: 12.1 7138-2837 SlideMail. Care instructions adapted under license by your healthcare professional. If you have questions about a medical condition or this instruction, always ask your healthcare professional. [employer]Mail disclaims any warranty or liability for your use of this information. documented in this encounter* Patient Instructions* Barbara Cruz CNP - 06/20/2019 8:42 AM EST Problem [...] is very common. It usually starts in sports photographer. Many adults don't realize they have it [...] Log into your personal health record on [email or web address] and enter B196 in the Education box to learn more about Attention Deficit Hyperactivity Disorder (ADHD) in Adults: Care Instructions. Current as of: November 12, 2018 Content Version: 12.3 4928-3032 SlideMail. Care instructions adapted under license by your healthcare professional. If you have questions about a medical condition or this instruction, always ask your healthcare professional. SlideMail disclaims any warranty or liability for your use of this information. documented in this encounter* Patient Instructions* Barbara Cruz CNP - 01/11/2020 8:42 PM EDT Problem [...] time. I will review your labs via Adatao or the office will with your results. [...] is very common. It usually starts in sports photographer. Many adults don't realize they have it [...] Log into your personal health record on [email or web address] and enter B196 in the Education box to learn more about Attention Deficit Hyperactivity Disorder (ADHD) in Adults: Care Instructions. Current as of: July 18, 2019 Content Version: 12.5 8793-4255 SlideMail. Care instructions adapted under license by your healthcare professional. If you have questions about a medical condition or this instruction, always ask your healthcare professional. SlideMail disclaims any warranty or liability for your use of this information. documented in this encounter* Patient Instructions* Barbara Cruz CNP - 06/01/2020 12:12 PM EST Problem [...] is very common. It usually starts in sports photographer. Many adults don't realize they have it [...] Log into your personal health record on [email or web address] and enter B196 in the Education box to learn more about Attention Deficit Hyperactivity Disorder (ADHD) in Adults: Care Instructions. Current as of: March 10, 2020 Content Version: 12.7 SlideMail. Care instructions adapted under license by your healthcare professional. If you have questions about a medical condition or this instruction, always ask your healthcare professional. Sl[employer]Mail disclaims any warranty or liability for your use of this information. documented in this encounter History of Present Illness * Barbara Castillo CNP - 08/09/2018 8:25 AM EST [...] medicationhas been prescribed by her psychologist in [place] up to this point. She would like to have this office take over her ADHD care so she does not have to drive clear to [place] monthly. ADHD- Symptoms began 20-30 years ago [...] doctor or other care provider. Changed by: Barbara Castillo CNP CONTINUE taking these medications cloNIDine HCl 0.1 MG tablet Commonly known as: CATAPRES Take 1 (one) tablet (0.1 mg total) by mouth nightly as needed . Where to Get Your Medications These medications were sent to [address] [id number] cloNIDine HCl 0.1 MG tablet dextroamphetamine-amphetamine 20 [...] effects of the medications. in this encounter* Barbara Cruz CNP - 11/13/2018 3:21 PM EDT OFFICE [...] Gets together: Three times a week Attends congregational service: Never Active member of club or [...] of the medications. documented in this encounter* Barbara Cruz CNP - 02/21/2019 1:45 PM EDT OFFICE [...] Gets together: Three times a week Attends congregational service: Never Active member of club or [...] vitals reviewed. OARRS/NARxCHECK Report Received and Assessed: 02/21/19 Date controlled [...] of the medications. 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 She [...] Gets together: Three times a week Attends congregational service: Never Active member of club or [...] this chart may have been created with [employer] voice recognition software. Occasional wrong-word or sound-like substitutions may have occurred due to inherent limitations of the voice recognition software. Please read the chart carefully and recognize, using context, where the substitutions have occurred. 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 She [...] Gets together: Three times a week Attends congregational service: Never Active member of club or [...] time. I will review your labs via Adatao or the office will with your results. [...] this chart may have been created with [employer] voice recognition software. Occasional wrong-word or sound-like substitutions may have occurred due to inherent limitations of the voice recognition software. Please read the chart carefully and recognize, using context, where the substitutions have occurred. documented in this encounter* Barbara Cruz CNP - 04/28/2020 10:07 AM EST Unable to come to appointment due to partner being tested for covid. He does work in the correctional [place]. I will refill 30-day supply until she can be seen at her next appointment but will notrefill any more due to need of CSA and drug screen to be completed. 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 She [...] stress of bringing home her significant other Denisha due to his comorbidities. She did speak [...] Gets together: Three times a week Attends congregational service: Never Active member of club or [...] Content: Thought content normal. Judgment: Judgment normal. OARRS/Tabatha Report Received and Assessed: 06/01/2020 Date controlled [...] this chart may have been created with [employer] voice recognition software. Occasional wrong-word or sound-like [...] Referral Specialty Diagnoses / Procedures Referred By Contjenn t Referred To Contact Diagnoses Screening mammogram for breast cancer Procedures Mammography Screening Ortiz Bilateral Mela Walker, BULK FOLDER [address] [place] [address] Referral ID Status Reason Start Date Expiration Date V isits Requested Visits Authorized [id number] Authorized 02/10/2022 02/10/2023 1 1 Referral ID Status Reason Start Date Expiration Date V isits Requested Visits Authorized [id number] Authorized 03/13/2024 03/13/2025 1 1 Chief Complaint and Reason for Visit Chief Complaint [facility] REQ UIRED TESTING [facility] REQUIRED TESTING [facility] 19 REQUIRED TESTING Chief Complaint [facility] 19 REQ UIRED TESTING [facility] 19 REQUIRED TESTING Chief Complaint SCREENING ABNORMAL MAMMOGRAM Chief Complaint SCREENING ABNORMAL MAMMOGRAM EMPLOYEE HEALTH Chief Complaint SCREENING ABNORMAL MAMMOGRAM EMPLOYEE HE[employer] EST CARE Reason for Visit Neck pain Segmental and somatic dysfunction of cervical region Segmental and somatic dysfunction of lumbar region Segmental and somatic dysfunction of pelvic region Segmental and somatic dysfunction of thoracic region Chief Complaint EMPLOYEE HEALTH EST CARE Back pain Reason for Visit Neck pain Segmental and somatic dysfunction of cervical region Segmental and somatic dysfunction of lumbar region Segmental and somatic dysfunction of pelvic region Segmental and somatic dysfunction of thoracic region Neck pain Segmental and somatic dysfunction of cervical region Segmental and somatic dysfunction of lumbar region Segmental and somatic dysfunction of pelvic region Segmental and somatic dysfunction of thoracic region Back pain Chief Complaint Admit Date Annual (PUBLIC HEALTH REGISTRAR) * [facility]* October 14, 2024 3:02pm DIZZINESS December 08, 2024 7:11 am Reason for Visit Admit Date Women's annual routine gynecological exa mination October 14, 2024 3:02pm Additional Source Comments INFORMATION SOURCE (unrecogn ized section and content) DATE CREATED AUTHOR 02/16/2018 [facility] DATE CREATED AUTHOR AUTHOR'S ORGANIZ ATION 11/20/2018 [facility] DATE CREATED AUTHOR AUTHOR'S ORGANIZ ATION 10/28/[address] [facility] DATE CREATED AUTHOR AUTHOR'S ORGANIZ ATION 12/11/2024 [facility] DATE CREATED AUTHOR AUTHOR'S ORGANIZ ATION 12/12/2024 [facility] Reason for Visit (unrecogniz ed section and content) Reason Comments Establish Care would liek patrizia enciso to take over her rx for adderall Reason Comments ADHD Would like lab order . Needs refills on meds. Would like to discuss med increase. Reason Comments Follow-up 3 month f/u for adhd Reason Comments ADHD Reason Comments Medication Refill Reason Onset Date Comments Medication Refill 07/16/2020 Reason Comments Annual Exam Reason Onset Date Comments Medication Refill 06/28/2022 Reason Onset Date Comments Medication Refill 10/03/2023 Reason Onset Date Comments Medication Refill 01/07/2024 Reason Comments Annual Exam Reason Onset Date Comments Medication Refill 06/20/2024 Reason Onset Date Comments Medication Refill 07/24/2024 Reason Onset Date Comments Medication Refill 08/08/2024 Reason Onset Date Comments Medication Refill 10/13/2024 Reason Onset Date Comments Medication Refill 01/08/2025 Assessment & Plan Note - Barbara Castillo CNP - 08/09/2018 8:31 AM ESTAssessment & Plan Note - Barbara Cruz CNP - 02/21/2019 12:50 PM EDT Miscellaneous [...] time. I will review your labs via Adatao or the office will with your results. I have ordered a 90 day supply of your adderall. This is a controlled substance which is regulated by the [place] government. New laws require you to be [...] Care Teams (unrecognized sec tion and content) Team Status: Inactive Member Role Status Dates Dr. Priyanka Leonardo , SHEYLA Attending Provider Active Team Status: Inactive Member Role Status Dates Dr. Karlo Good MD Attending Provider, Referring Pr daly Active Team Status: Inactive Member Role Status Dates DENISE CANO Primary Care Provide r, Attending Provider, Referring Provider Active Team Status: Inactive Member Role Status Dates DENISE CANO Attending Provider, Referring Provider A ctive Team Status: Active Member Role Status Dates DENISE CANO Primary Care Provider Active Health Risk Assessment Attending Provider, Referring P angelica Active Physicist Solid State Relationship Specialty Start Date End Date Mela Walker CNP [address] [place] [address] PCP - General Nurse Practitioner 08/11/20 Physicist Solid State Relationship Specialty Start Date End Date Mela Walker CNP [address] [place] [id number] PCP - General Nurse Practitioner 08/11/20 Mela Walker, BULK FOLDER [address] [place] [address], [place] [address] PCP - BALDEV Attributed Provider - MMO Commercial 07/19/19 06/17/50 Physicist Solid State Relationship Specialty Start Date End Date Mela Walker, BULK FOLDER [address] [place] [address], [place] [address] PCP - General Nurse Practitioner 08/11/20 Mela Walker CNP [address] [place] [address], [place] [address] PCP - BALDEV Attributed Provider - MMO Commercial 07/19/19 06/17/50 Physicist Solid State Relationship Specialty Start Date End Date Mela Walker BULK FOLDER [address] [place] [address], [place] [address] PCP - General Nurse Practitioner 08/11/20 Mela Walker CNP [address] [place] [address], [place] [address] PCP - BALDEV Attributed Provider - MMO Commercial 07/19/19 06/17/50 Physicist Solid State Relationship Specialty Start Date End Date Mela Walker BULK FOLDER [address] [place] [address], [place] [address] PCP - General Nurse Practitioner 08/11/20 Mela Walker BULK FOLDER [address] [place] [address], [place] [address] PCP - BALDEV Attributed Provider - MMO Commercial 07/19/19 06/17/50 Physicist Solid State Relationship Specialty Start Date End Date Mela Walker CNP [address] [place] [address], [place] [address] PCP - General Nurse Practitioner 08/11/20 Mela Walker, BULK FOLDER [address] [place] [id number] PCP - BALDEV Attributed Provider - MMO Commercial 07/19/19 06/17/50 Team Status: Active Member Role Status Dates MELA WALKER Primary Care Provider Active Team Status: Inactive Member Role Status Dates DENISE CANO Primary Care Provider Active Dr. Karlo Good MD Attending Provider Active Physicist Solid State Relationship Specialty Start Date End Date Mela Walker, BULK FOLDER [address] [place] [id number] PCP - General Nurse Practitioner 08/11/20 Mela Walker, BULK FOLDER [address] [place] [id number] PCP - BALDEV Attributed Provider - MMO Commercial 07/19/19 06/17/50 Physicist Solid State Relationship Specialty Start Date End Date Mela Walker CNP [address] [place] [id number] PCP - General Nurse Practitioner 08/11/20 Physicist Solid State Relationship Specialty Start Date End Date Denise Mela Amato CNP [address] [place] [id number] PCP - General Nurse Practitioner 08/11/20 Physicist Solid State Relationship Specialty Start Date End Date Mela Walker CNP [address] [facility] [place] [address] PCP - General Nurse Practitioner 08/11/20 Physicist Solid State Relationship Specialty Start Date End Date Mela Walker CNP Laila Das [address] [place] [id number] PCP - General Nurse Practitioner 08/11/20 Physicist Solid State Relationship Specialty Start Date End Date Denise Mela BrodyMARYA jimenez [address] [place] [address], [place] [address] PCP - General Nurse Practitioner 08/11/20 Physicist Solid State Relationship Specialty Start Date End Date Denise Mela BrodyMARYA jimenez [address] [place] [address], [place] [address] PCP - General Nurse Practitioner 08/11/20 Physicist Solid State Relationship Specialty Start Date End Date Denise Mela BrodyMARYA jimenez [address] [place] [address], [place] [address] PCP - General Nurse Practitioner 08/11/20 Physicist Solid State Relationship Specialty Start Date End Date Walker Mela BrodyMARYA jimenez [address] [place] [address], [place] [address] PCP - General Nurse Practitioner 08/11/20 Physicist Solid State Relationship Specialty Start Date End Date Mela Walker CNP [address] [place] [address], [place] [address] PCP - General Nurse Practitioner 08/11/20 Physicist Solid State Relationship Specialty Start Date End Date Mela Walker CNP [address] [place] [address], [place] [address] PCP - General Nurse Practitioner 08/11/20 Physicist Solid State Relationship Specialty Start Date End Date Denise Melaulysses Amato CNP [address] [place] [address], [place] [address] PCP - General Nurse Practitioner 08/11/20 Physicist Solid State Relationship Specialty Start Date End Date Mela Walker CNP [address] [place] [id number] PCP - General Nurse Practitioner 08/11/20 Team Status: Active Member Role Status Dates FILIBERTO Cooper Primary Care Provider Active Team Status: Inactive Member Role Status Dates FILIBERTO Cooper Primary Care Provider Active Start: October 14, 2024 End: October 14, 2024 FILIBERTO Cooper Referring Provider Active St art: October 14, 2024 End: October 14, 2024 FILIBERTO Bradshaw Attending Provider Active Start: October 14, 2024 End: October 14, 2024 Team Status: Inactive Member Role Status Dates FILIBERTO Cooper Primary Care Provider Active Start: December 08, 2024 End: December 08, 2024 Dr. Deonte Beckett , DO Emergency Provider Active Start: December 08, 2024 End: December 08, 2024 Physicist Solid State Relationship Specialty Start Date End Date Denise Mela Brodytony MARYA [address] [place] [id number] PCP - General Nurse Practitioner 08/11/20 Goals (unrecognized section and content) Goals may be documented in a n alternate sectionGoals may be documented in an alternate sectionGoals may be documented in an alternate sectionGoals may be documented in an alternate sectionGoals may be documented in an alternate sectionGoals may be documented in an alternate sectionGoals may be documented in an alternate sectionGoals may be documented in an alternate sectionGoals may be documented in an alternate section FOR RECORDS PERTAINING TO PATIENTS WHO ARE [...] BE BASED ON THE PRIMARY CLINICAL RECORDS. [facility] [employer] provides no warranty or guarantee of the accuracy or completeness of information in this document.
[2025-01-12 06:39] LABS: Hematocrit 45.6 % (37-47); Hemoglobin 14.4 g/dL (12.0-15.0); Immature Granulocytes Count 0.040 X10^3/uL (0.0-0.0); Mean Corp Hgb Conc 31.6 g/dL (32-36); Mean Corpuscular Volume 80.9 fL (81-99); Mean Platelet Vol. 9.6 fl (6.2-12.0); NRBC Flagged by Analyzer 0 % (0-5); Platelet Count 396 K/mm3 (150-450); RBC Distribution Width CV 14.9 % (11.6-14.6); RBC Distribution Width SD 43.4 fl (35.1-43.9); Red Blood Count 5.64 M/mm3 (4.2-5.4); White Blood Count 7.7 K/mm3 (4.4-11.0)
[2025-01-12 07:09] LABS: CRP 17.80 mg/L (0.0-3.0); Uric Acid 4.2 mg/dL (2.6-6.0)
[2025-01-13 11:09] LABS: ANTINUCLEAR ANTIBODIES DIRECT Negative (Negative)
== END | disposition home or self-care (01) ==
PROVIDERS: PCP Nurse Practitioner Family; Referring Provider Nurse Practitioner Family; Visit Provider Nurse Practitioner Family
DX: M25.50 Pain in unspecified joint (principal)
CPT/HCPCS: 36415; 84550; 85025; 85652; 86038; 86140; 86200; 86431

== ENCOUNTER → 2025-01-23 | Outpatient (CLI) | payer OTHER, SELFPAY ==
--- OUTSIDE RECORDS SUMMARY | 2025-01-23 06:38 | XMS RPT_ITS | CCD ---
Author Organization [facility]formunc health Partnership [facility] Care Team Providers Care Program Director Scouting Name Role Phone Unavailable Unavailable Unavailable Abisai Wyman Unavailable Unavailable Abisai Wyman Unavailable Unavailable Barbara Castillo Primary Care Provider [phone] Barbara Cruz Primary Care Provider [phone] BARBARA CRUZ Admitting Unavailable BARBARA CRUZ Primary Care Unavailable Barbara Cruz Primary Care Provider Required, No Pcp Unavailable Unavailable Jenny Giang Unavailable Unavailable Walker CLASSIFIED AD CLERK, Mela Lima Primary Care Provider Walker CLASSIFIED AD CLERK, Mela Lima Primary Care Provider [phone] Walker CLASSIFIED AD CLERK, Mela Lima Unavailable [phone] Walker CLASSIFIED AD CLERK, Mela Lima Unavailable Deonte Dsouza Unavailable Mario NUTRITIONAL ASSISTANT-C Bethanie Attending Provider Dr. Alejandro Sandhu Attending Provider [phone] Walker CLASSIFIED AD CLERK, Mela Lima Primary Care Provider Walker CLASSIFIED AD CLERK, Mela Lima Unavailable [phone] Walker CLASSIFIED AD CLERK, Mela Lima Primary Care Provider Dr. Priyanka Leonardo Attending Provider [id number] Dr. Priyanka Leonardo Attending Provider [phone] Walker CLASSIFIED AD CLERK, Mela Lima Primary Care Provider Denise NUTRITIONAL ASSISTANT-C, Mela Primary Care Provider [phone] Denise NUTRITIONAL ASSISTANT-C, Mela Referring Provider Krys NUTRITIONAL ASSISTANT-CUyen Attending Provider Dr. Deonte Beckett DO Emergency Provider WALKER, [...] Unavailable WALKER, MELA LIMA Primary Care Unavailable Dr. Deonte Beckett DO Attending Provider [phone] Denise NUTRITIONAL ASSISTANT-CMela Attending Provider [phone] Walker, Mela Referring Unavailable Ueyn Marcano Attending Unavailable Walker, Mela Primary Care Unavailable Walker, Mela Referring Unavailable Dossi, Priyanka Attending Unavailable Walker, Mela Primary Care Unavailable Walker, Mela Referring Unavailable Dossi, Priyanka Attending Unavailable Walker, Mela Primary Care Unavailable Walker, Mela Primary Care Unavailable Assessment, Health Risk Referring Unavaila ble Assessment, Health Risk Attending Unavaila ble Walker, Mela Referring Unavailable Walker, Mela Attending Unavailable Walker, Mela Primary Care Unavailable Walker, Mela Referring Unavailable Walker, Mela Attending Unavailable Walker, Mela Primary Care Unavailable Walker, Mela Referring Unavailable Walker, Mela Attending Unavailable Walker, Mela Primary Care Unavailable Walker, Mela Primary Care Unavailable Walker, Mela Referring Unavailable Walker, Mela Attending Unavailable Deonte Beckett Attending Unavailable Walker, Mela Primary Care Unavailable Kevin Bose Attending Unavailable Kevin Bose Attending Unavailable Allergies Allergy Classification Reported Allergen(s) Allergy Type Date of Onset Reaction(s) Facility Amoxicillin / Clavulanate (1 source) Amoxicillin / Clavulanate Drug Allergy 9 Hives [facility] Work Phone: Clavulanate (1 source) Clavulanate Drug Allergy 0 [facility] Penicillins (antibiotic) (1 source) Penicillins Drug Allergy 5 [facility] (20 sources) Amoxicillin / Clavulanate; Translations: [Unknown] Drug Allergy 9 Hives, Anaphylaxis [facility] (20 sources) Clavulanate; Translations: [CLAVULANIC ACID] Drug Allergy 0 Shortness of breath [facility] (20 sources) Penicillins; Translations: [PENICILLINS] Propensity to adverse reactions to drug 5 [facility] (1 source) Amoxicillin / Clavulanate Drug Allergy Anaphylaxis [facility] (12 sources) Amoxicillin Drug Allergy 2 Shortness of breath [facility] (1 source) Amoxicillin Drug Allergy 5 [facility] Repository (1 source) Clavulanate Drug Allergy 5 [facility] Repository Medications Current Medications Medication Drug [...] Dextroamphetamine-Amphetamin e 10 mg tablet Discontinued PO 0 March 22, 2023 12:00am September 16, 2024 [...] . 90 tablet 0 06/01/2020 08/30/2020 Active ergocalciferol 1.25 mg oral capsule (20 [...] take 1 tablet by mouth once daily Lamotrigine 100 mg tablet Active 100 mg PO daily September 16, 2024 12:00am Start: 10-18-2022 End: 10-18-2023 take 3 tablets [...] Discontinued lisdexamfetamine dimesylate 60 mg oral capsule (17 sources) Central Nervous System Stimulant Start: 10-13-2024 [...] mg capsule Active 40 mg PO daily 0 September 16, 2024 12:00am Start: 02-04-2021 End: [...] pantoprazole 40 mg delayed release oral tablet (9 sources) Proton Pump Inhibitor Start: 09-16-2024 take 1 tablet by mouth once daily Pantoprazole 40 mg tablet,delayed release (DR/EC) Active 40 mg PO daily September 16, 2024 12:00am Start: 03-13-2024 End: 09-09-2024 take 1 tablet [...] mg disintegrating oral tablet (20 sources) Start: 09-16-2024 take 1 tablet by mouth once as needed Rimegepant (Nurtec Odt) 75 mg tablet,disintegrat ing Active 75 mg PO ONCE as needed September 16, 2024 12:00am as a single dose Start: 01-31-2023 End: 06-20-2024 take 1 tablet by mouth once as needed Rimegepant (Nurtec Odt) 75 mg tablet,disintegrating Active 75 mg PO ONCE as needed September 16, 2024 12:00am as a single dose Start: 02-10-2022 apply 1 tablet topic ally once daily as needed rimegepant (Nurtec ODT) 75 mg ODT Indications: Intractable migraine with aura without status migrainosus Dissolve 1 (one) tablet (75 mg total) on top of tongue daily as needed . 10 tablet 5 02/10/2022 Active sulfamethoxazole 800 mg / trimethoprim 160 [...] capsule 0 06/20/2022 07/19/2022 Discontinued (Therapy completed) cloNIDine hydrochloride 0.1 mg oral tablet (20 sources) Central alpha-2 Adrenergic Agonist Start: 08-09-2018 End: 09-16-2024 take 1 tablet by mouth once daily as needed Clonidine Hcl 0.1 MG tablet Discontinued 0.1 mg PO DAILY as needed for Agitation July 21, 2019 1:00am September 16, 2024 8:28am fluconazole 150 mg oral tablet (2 sources) [...] 7 days . 2 mL 03/13/2024 Active sertraline 100 mg oral tablet (20 sources) Serotonin Reuptake Inhibitor Start: 03-22-2023 Sertraline Active MG PO March 21, 2023 11:00pm Start: 03-01-2023 End: 09-10-2025 Sertraline 100 mg tablet Discontinued mg PO March 22, 2023 12:00am September 16, 2024 8:28am Start: 02-10-2022 End: 07-19-2023 take 1 tablet by mouth once daily sertraline (ZOLOFT) 25 MG tablet Indications: Depression, unspecified depression type Take 1 (one) tablet (25 mg total) by mouth daily . 90 tablet 1 07/19/2022 07/19/2023 Active spironolactone 100 mg oral tablet (6 sources) Aldosterone Antagonist Start: 03-22-2023 End: 09-16-2024 [...] migrainosus] Onset: 02-23-2022 Chronic Headache; including migraine (2 sources) Cervicogenic headache; Translations: [Cervicogenic headache] 05-26-2024 Episodic Immunizations and screening for infectious disease (20 sources) Patient encounter status; Translations: [Encounter for screening for COVID-19] Onset: 02-23-2022 Resolved: 09-10-2024 Episodic Influenza (12 sources) Influenza due to Influenza A virus; [...] Chronic Other bone disease and musculoskeletal deformities (16 sources) Segmental and somatic dysfunction; Translations: [Segmental and somatic dysfunction of cervical region] 03-27-2023 Episodic Other non-traumatic joint disorders (1 source) Pain in unspecified joint; Translations: [Pain in unspecified joint] Onset: 01-15-2025 Episodic Other nutritional; endocrine; and metabolic disorders (8 sources) Body mass index 40+ - severely obese; Translations: [Morbid (severe) obesity due to excess calories] Onset: 03-13-2024 03-13-2024 Chronic Other upper respiratory disease (12 sources) Respiratory tract congestion; Translations: [Nasal congestion] 06-26-2021 Episodic Other upper respiratory infections (14 sources) Common cold; Translations: [Acute nasopharyngitis [common cold]] Episodic Sprains and strains (20 sources) Strain of thoracic region; Translations: [Strain of muscle and tendon of back wall of thorax, initial encounter] 06-17-2020 Episodic Syncope (2 sources) Near syncope; Translations: [Syncope and collapse] 12-08-2024 Episodic Unclassified (5 sources) Patient encounter status; Translations: [Encounter for well adult exam without abnormal findings] Unclassified (1 source) Screening status; Translations: [Screening for thyroid disorder] Unclassified (1 source) Gastroenteritis, acute 11-17-2020 Unclassified (2 sources) Results Onset: 03-18-2024 Past or Other Problems Problem Classification Problem Date Documented Da te Episodic/Chronic Mood disorders (12 sources) Mood disorders; Translations: [...] Spondylosis; intervertebral disc disorders; other back problems (11 sources) Backache; Translations: [Neck pain] Onset: 08-14-2024 08-03-2021 Episodic Comment on above: BACK PAIN Results Test Name Value Interpretation Reference Range Facility ANTINUCLEAR ANTIBODIES DIREC Ton 01-13-2025 DENISE,DIRECT Negative Normal Negative [facility] Comment on above: Result Comment: Perf ormed at: [address] [id number] Energy Director: Graham Kinney PhD, Phone: [phone] Performed By: #### L 3100.5475, L100.0100, L505.7010, L101.9900, L4600.0100, L501.1400, L501.6710 #### [facility] [address] [place], [address] CCP IgG Antibodieson 025 CCP IgG Ab. 4 units Normal 0-19 [facility] Comment on above: Result Comment: Nega tive <20 Weak positive 20 - 39 Moderate positive 40 - 59 Strong positive >59 Performed at: [address] [id number] Energy Director: Graham Kinney PhD, Phone: [phone] Performed By: #### L 3100.5475, L100.0100, L505.7010, L101.9900, L4600.0100, L501.1400, L501.6710 #### [facility] [address] [place], [address] Absolute lymphocyte countOrd ered By: Mela Walker on 01-12-2025 Lymphocytes Auto (Unsp spec) [#/Vol] 2.12 10*3/uL 0.83-4.51 [facility] Absolute neutrophil countOrd ered By: Mela Walker on 01-12-2025 Neutrophils (Bld) [#/Vol] 5.0 10*3/uL 2.0-7.7 [facility] Automated lymphocyte count a s percentage of total leukocytesOrdered By: Mela Walker on 01-12-2025 Lymphocytes/100 WBC Auto (Unsp spec) 27.6 % 19-41 [facility] Basophil percentageOrdered B y: Mela Walker on 01-12-2025 Basophils/100 WBC (Bld) 0.9 % 0-1 [facility] CBC W/Diff, Automatedon 12-17 Absolute Lymph 2.12 X10 3/uL Normal 0.83-4.51 [facility] Comment on above: Performed By: #### L 3100.5475, L100.0100, L505.7010, L101.9900, L4600.0100, L501.1400, L501.6710 #### [facility] [address] [place], [address] Absolute Neut 5.0 X10 3/uL Normal 2.0-7.7 [facility] Comment on above: Performed By: #### L 3100.5475, L100.0100, L505.7010, L101.9900, L4600.0100, L501.1400, L501.6710 #### [facility] [address] [place], [address] Basophils/100 WBC (Bld) 0.9 % Normal 0-1 [facility] Comment on above: Performed By: #### L 3100.5475, L100.0100, L505.7010, L101.9900, L4600.0100, L501.1400, L501.6710 #### [facility] [address] [place], [address] Eosinophils/100 WBC (Bld) 1.8 % Normal 0-5 [facility] Comment on above: Performed By: #### L 3100.5475, L100.0100, L505.7010, L101.9900, L4600.0100, L501.1400, L501.6710 #### [facility] [address] [place], [address] Erythrocyte distribution width (RBC) [Ratio] 14.9 % High 11.6-14.6 [facility] Comment on above: Performed By: #### L 3100.5475, L100.0100, L505.7010, L101.9900, L4600.0100, L501.1400, L501.6710 #### [facility] [address] [place], [address] Hematocrit (Bld) [Volume fraction] 45.6 % Normal 37-47 [facility] Comment on above: Performed By: #### L 3100.5475, L100.0100, L505.7010, L101.9900, L4600.0100, L501.1400, L501.6710 #### [facility] [address] [place], [address] Hemoglobin (Bld) [Mass/Vol] 14.4 g/dL Normal 12.0-15.0 [facility] Comment on above: Performed By: #### L 3100.5475, L100.0100, L505.7010, L101.9900, L4600.0100, L501.1400, L501.6710 #### [facility] [address] [place], [address] IG% 0.500 Normal 0.0-0.9 [facility] Comment on above: Result Comment: IG% - Immature Granulocytes (promyelocytes, myelocytes and metamyelocytes) > 1% indicates that a LEFT SHIFT is Present. Performed By: #### L 3100.5475, L100.0100, L505.7010, L101.9900, L4600.0100, L501.1400, L501.6710 #### [facility] [address] [place], [address] Lymphocytes/100 WBC (Bld) 27.6 % Normal 19-41 [facility] Comment on above: Performed By: #### L 3100.5475, L100.0100, L505.7010, L101.9900, L4600.0100, L501.1400, L501.6710 #### [facility] [address] [place], [address] MCH (RBC) [Entitic mass] 25.5 pg Low 27.0-32.0 [facility] Comment on above: Performed By: #### L 3100.5475, L100.0100, L505.7010, L101.9900, L4600.0100, L501.1400, L501.6710 #### [facility] [address] [place], [address] MCHC (RBC) [Mass/Vol] 31.6 g/dL Low 32-36 [facility] Comment on above: Performed By: #### L 3100.5475, L100.0100, L505.7010, L101.9900, L4600.0100, L501.1400, L501.6710 #### [facility] [address] [place], [address] MCV (RBC) [Entitic vol] 80.9 fL Low 81-99 [facility] Comment on above: Performed By: #### L 3100.5475, L100.0100, L505.7010, L101.9900, L4600.0100, L501.1400, L501.6710 #### [facility] [address] [place], [address] Monocytes/100 WBC (Bld) 3.8 % Normal 0-10 [facility] Comment on above: Performed By: #### L 3100.5475, L100.0100, L505.7010, L101.9900, L4600.0100, L501.1400, L501.6710 #### [facility] [address] [place], [address] Neutrophils/100 WBC (Bld) 65.4 % Normal 47-70 [facility] Comment on above: Performed By: #### L 3100.5475, L100.0100, L505.7010, L101.9900, L4600.0100, L501.1400, L501.6710 #### [facility] [address] [place], [address] Nucleated RBC (Bld) [#/Vol] 0 10*3/uL Normal 0-5 [facility] Comment on above: Performed By: #### L 3100.5475, L100.0100, L505.7010, L101.9900, L4600.0100, L501.1400, L501.6710 #### [facility] [address] [place], [address] Platelet mean volume (Bld) [Entitic vol] 9.6 fL Normal 6.2-12.0 [facility] Comment on above: Performed By: #### L 3100.5475, L100.0100, L505.7010, L101.9900, L4600.0100, L501.1400, L501.6710 #### [facility] [address] [place], [address] Platelets (Bld) [#/Vol] 396 10*3/uL Normal 150-450 [facility] Comment on above: Performed By: #### L 3100.5475, L100.0100, L505.7010, L101.9900, L4600.0100, L501.1400, L501.6710 #### [facility] [address] [place], [address] RBC (Bld) [#/Vol] 5.64 10*6/uL High 4.2-5.4 [facility] Comment on above: Performed By: #### L 3100.5475, L100.0100, L505.7010, L101.9900, L4600.0100, L501.1400, L501.6710 #### [facility] [address] [place], [address] RDW SD 43.4 fl Normal 35.1-43.9 [facility] Comment on above: Performed By: #### L 3100.5475, L100.0100, L505.7010, L101.9900, L4600.0100, L501.1400, L501.6710 #### [facility] [address] [place], [address] WBC (Bld) [#/Vol] 7.7 10*3/uL Normal 4.4-11.0 [facility] Comment on above: Performed By: #### L 3100.5475, L100.0100, L505.7010, L101.9900, L4600.0100, L501.1400, L501.6710 #### [facility] [address] [place], [address] CRPon 01-12-2025 C-REACTIVE PROT 17.80 mg/L High 0.0-3.0 [facility] Comment on above: Performed By: #### L 3100.5475, L100.0100, L505.7010, L101.9900, L4600.0100, L501.1400, L501.6710 #### [facility] [address] [place], [place], [address] Eosinophil percentageOrdered By: Mela Walker on 01-12-2025 Eosinophils/100 WBC (Bld) 1.8 % 0-5 [facility] Erythrocyte Sed Rateon 01-12 SED RATE 32 mm/hr High 0-30 [facility] Comment on above: Performed By: #### L 3100.5475, L100.0100, L505.7010, L101.9900, L4600.0100, L501.1400, L501.6710 #### [facility] [address] [place], [address] Erythrocyte distribution wid th ratioOrdered By: Mela Walker on 01-12-2025 Erythrocyte distribution width (RBC) [Ratio] 14.9 % High 11.6-14.6 [facility] Erythrocyte distribution wid th standard deviationOrdered By: Mela Walker on 01-12-2025 Erythrocyte distribution width (RBC) [Ratio] 43.4 fl 35.1-43.9 [facility] Erythrocyte sedimentation ra teOrdered By: Mela Walker on 01-12-2025 ESR (Bld) [Velocity] 32 mm/h High 0-30 [facility] Hematocrit Auto (Bld) [Volum e fraction]Ordered By: Mela Walker on 01-12-2025 Hematocrit (Bld) [Volume fraction] 45.6 % 37-47 [facility] Hemoglobin measurementOrdere d By: Mela Walker on 01-12-2025 Hemoglobin (Bld) [Mass/Vol] 14.4 g/dL 12.0-15.0 [facility] Immature granulocytes/100 WB C Auto (Bld)Ordered By: Mela Walker on 01-12-2025 Immature granulocytes/100 WBC (Bld) 0.500 % 0.0-0.9 [facility] Comment on above: IG% - Immature Granu locytes (promyelocytes, myelocytes and metamyelocytes) > 1% indicates that a LEFT SHIFT is Present. MCV (mean corpuscular volume ) determinationOrdered By: Mela Walker on 01-12-2025 MCV (RBC) [Entitic vol] 80.9 fL Low 81-99 [facility] Mean corpuscular hemoglobin (MCH) determinationOrdered By: Mela Walker on 01-12-2025 MCH (RBC) [Entitic mass] 25.5 pg Low 27.0-32.0 [facility] Mean corpuscular hemoglobin concentration (MCHC) determinationOrdered By: Mela Walker on 01-12-2025 MCHC (RBC) [Mass/Vol] 31.6 g/dL Low 32-36 [facility] Mean platelet volume determi nationOrdered By: Mela Walker on 01-12-2025 Platelet mean volume (Bld) [Entitic vol] 9.6 fL 6.2-12.0 [facility] Monocyte percentageOrdered B y: Mela Walker on 01-12-2025 Monocytes/100 WBC (Bld) 3.8 % 0-10 [facility] Neutrophil percentageOrdered By: Mela Walker on 01-12-2025 Neutrophils/100 WBC (Bld) 65.4 % 47-70 [facility] Nucleated red blood cell per centageOrdered By: Mela Walker on 01-12-2025 Nucleated RBC/100 WBC (Bld) [Ratio] 0 % 0-5 [facility] Platelet countOrdered By: Geronimo Walker on 01-12-2025 Platelets (Bld) [#/Vol] 396 10*3/uL 150-450 [facility] RBC Auto (Bld) [#/Vol]Ordere d By: Mela Walker on 01-12-2025 RBC (Bld) [#/Vol] 5.64 10*6/uL High 4.2-5.4 [facility] Rheumatoid Factoron 01-13-20 25 RHEUMATOID FAC < 10.0 Normal <15 [facility] Comment on above: Performed By: #### L 3100.5475, L100.0100, L505.7010, L101.9900, L4600.0100, L501.1400, L501.6710 #### [facility] [address] [place], [address] Serum or plasma C reactive p rotein measurement (mass/volume)Ordered By: Mela Walker on 01-12-2025 CRP [Mass/Vol] 17.80 mg/L High 0.0-3.0 [facility] Serum or plasma cyclic citru llinated peptide IgG antibody assay (units/volume)Ordered By: Mela Walker on 01-12-2025 Cyclic citrullinated peptide IgG Qn 4 units 0-19 [facility] Comment on above: Negative <20 Weak po sitive 20 - 39 Moderate positive 40 - 59 Strong positive >59Performed at: [facility] [id number] Director: Graham Kinney PhD, Phone: [phone] Serum or plasma uric acid me asurement (mass/volume)Ordered By: Mela Walker on 01-12-2025 Urate [Mass/Vol] 4.2 mg/dL 2.6-6.0 [facility] Comment on above: The drugs N-Acetylcy steine and Metamizole may falsely depress this assay. Serum rheumatoid factor dete ctionOrdered By: Mela Walker on 01-12-2025 Rheumatoid factor Ql (S) < 10.0 IU/mL <15 [facility] Uric Acidon 01-12-2025 URIC 4.2 mg/dL Normal 2.6-6.0 [facility] Comment on above: Result Comment: The drugs N-Acetylcysteine and Metamizole may falsely depress this assay. Performed By: #### L 3100.5475, L100.0100, L505.7010, L101.9900, L4600.0100, L501.1400, L501.6710 #### [facility] [address] [facility] [place], [address] White blood cell (WBC) count Ordered By: Mela Walker on 01-12-2025 WBC (Bld) [#/Vol] 7.7 10*3/uL 4.4-11.0 [facility] 12 Lead EKGon 12-08-2024 12 Lead EKG [facility] [address] [place] [address] 12 Lead EKG 12/08/24 0759 MR#: [id number] Acct: [id number] Name: FRIDA WIN Rep #: [id number] : 1980 44 From: Sedrick Anglin MD [...] Normal sinus rhythm Normal ECG Confirmed by SEDRICK ANGLIN MD ([id number]), web editor BHASKAR RASHID ([id number]) on 12/09/2024 11:04:54 AM Referred By: Confirmed By: SEDRICK ANGLIN MD 12/09/24 1104 Date Sedrick Anglin MD CC: FILIBERTO Walker; Dr. Deonte Beckett, DO Signed Normal [facility] Absolute lymphocyte countOrd ered By: Deonte Beckett on 12-08-2024 Lymphocytes Auto (Unsp spec) [#/Vol] 1.74 10*3/uL 0.83-4.51 [facility] Absolute neutrophil countOrd ered By: Deonte Beckett on 12-08-2024 Neutrophils (Bld) [#/Vol] 7.4 10*3/uL 2.0-7.7 [facility] Anion gap in Serum or Plasma Ordered By: Deonte Beckett on 12-08-2024 Anion gap [Moles/Vol] 11 mmol/L 5-15 [facility] Automated lymphocyte count a s percentage of total leukocytesOrdered By: Deonte Beckett on 12-08-2024 Lymphocytes/100 WBC Auto (Unsp spec) 17.8 % Low 19-41 [facility] BUN/creatinine ratioOrdered By: Deonte Beckett on 12-08-2024 Urea nitrogen/Creatinine [Mass ratio] 12.6 mg/mg 10-20 [facility] Basophil percentageOrdered B y: Deonte Beckett on 12-08-2024 Basophils/100 WBC (Bld) 0.6 % 0-1 [facility] Bilirubin, totalOrdered By: Deonte Beckett on 12-08-2024 Bilirubin [Mass/Vol] 0.37 mg/dL 0.00-1.30 [facility] CBC W/Diff, Automatedon 11-17 Absolute Lymph 1.74 X10 3/uL Normal 0.83-4.51 [facility] Comment on above: Performed By: #### L 3100.5613, L100.0100, L505.7010, L101.9900, L4600.0100, L501.1400, L501.6710 #### [facility] [address] [place] [address]. [place], [place], [id number] Absolute Neut 7.4 X10 3/uL Normal 2.0-7.7 [facility] Comment on above: Performed By: #### L 3100.5475, L100.0100, L505.7010, L101.9900, L4600.0100, L501.1400, L501.6710 #### [facility] [address] [place], [address] Basophils/100 WBC (Bld) 0.6 % Normal 0-1 [facility] Comment on above: Performed By: #### L 3100.5475, L100.0100, L505.7010, L101.9900, L4600.0100, L501.1400, L501.6710 #### [facility] [address] [place], [address] Eosinophils/100 WBC (Bld) 1.1 % Normal 0-5 [facility] Comment on above: Performed By: #### L 3100.5475, L100.0100, L505.7010, L101.9900, L4600.0100, L501.1400, L501.6710 #### [facility] [address] [place], [address] Erythrocyte distribution width (RBC) [Ratio] 14.6 % Normal 11.6-14.6 [facility] Comment on above: Performed By: #### L 3100.5475, L100.0100, L505.7010, L101.9900, L4600.0100, L501.1400, L501.6710 #### [facility] [address] [place], [address] Hematocrit (Bld) [Volume fraction] 44.9 % Normal 37-47 [facility] Comment on above: Performed By: #### L 3100.5475, L100.0100, L505.7010, L101.9900, L4600.0100, L501.1400, L501.6710 #### [facility] [address] [place], [address] Hemoglobin (Bld) [Mass/Vol] 14.4 g/dL Normal 12.0-15.0 [facility] Comment on above: Performed By: #### L 3100.5475, L100.0100, L505.7010, L101.9900, L4600.0100, L501.1400, L501.6710 #### [facility] [facility] [address] [place], [address] IG% 0.500 Normal 0.0-0.9 [facility] Comment on above: Result Comment: IG% - Immature Granulocytes (promyelocytes, myelocytes and metamyelocytes) > 1% indicates that a LEFT SHIFT is Present. Performed By: #### L 3100.5475, L100.0100, L505.7010, L101.9900, L4600.0100, L501.1400, L501.6710 #### [facility] [address] [place], [address] Lymphocytes/100 WBC (Bld) 17.8 % Low 19-41 [facility] Comment on above: Performed By: #### L 3100.5475, L100.0100, L505.7010, L101.9900, L4600.0100, L501.1400, L501.6710 #### [facility] [address] [place], [address] MCH (RBC) [Entitic mass] 25.9 pg Low 27.0-32.0 [facility] Comment on above: Performed By: #### L 3100.5475, L100.0100, L505.7010, L101.9900, L4600.0100, L501.1400, L501.6710 #### [facility] [address] [place], [address] MCHC (RBC) [Mass/Vol] 32.1 g/dL Normal 32-36 [facility] Comment on above: Performed By: #### L 3100.5475, L100.0100, L505.7010, L101.9900, L4600.0100, L501.1400, L501.6710 #### [facility] [address] [place], [address] MCV (RBC) [Entitic vol] 80.8 fL Low 81-99 [facility] Comment on above: Performed By: #### L 3100.5475, L100.0100, L505.7010, L101.9900, L4600.0100, L501.1400, L501.6710 #### [facility] [address] [place], [address] Monocytes/100 WBC (Bld) 4.0 % Normal 0-10 [facility] Comment on above: Performed By: #### L 3100.5475, L100.0100, L505.7010, L101.9900, L4600.0100, L501.1400, L501.6710 #### [facility] [address] [place], [address] Neutrophils/100 WBC (Bld) 76.0 % High 47-70 [facility] Comment on above: Performed By: #### L 3100.5475, L100.0100, L505.7010, L101.9900, L4600.0100, L501.1400, L501.6710 #### [facility] [address] [place], [address] Nucleated RBC (Bld) [#/Vol] 0 10*3/uL Normal 0-5 [facility] Comment on above: Performed By: #### L 3100.5475, L100.0100, L505.7010, L101.9900, L4600.0100, L501.1400, L501.6710 #### [facility] [address] [place], [address] Platelet mean volume (Bld) [Entitic vol] 9.5 fL Normal 6.2-12.0 [facility] Comment on above: Performed By: #### L 3100.5475, L100.0100, L505.7010, L101.9900, L4600.0100, L501.1400, L501.6710 #### [facility] [address] [place], [address] Platelets (Bld) [#/Vol] 367 10*3/uL Normal 150-450 [facility] Comment on above: Performed By: #### L 3100.5475, L100.0100, L505.7010, L101.9900, L4600.0100, L501.1400, L501.6710 #### [facility] [address] [place], [address] RBC (Bld) [#/Vol] 5.56 10*6/uL High 4.2-5.4 [facility] Comment on above: Performed By: #### L 3100.5475, L100.0100, L505.7010, L101.9900, L4600.0100, L501.1400, L501.6710 #### [facility] [address] [place], [address] RDW SD 42.7 fl Normal 35.1-43.9 [facility] Comment on above: Performed By: #### L 3100.5475, L100.0100, L505.7010, L101.9900, L4600.0100, L501.1400, L501.6710 #### [facility] [address] [place], [address] WBC (Bld) [#/Vol] 9.8 10*3/uL Normal 4.4-11.0 [facility] Comment on above: Performed By: #### L 3100.5475, L100.0100, L505.7010, L101.9900, L4600.0100, L501.1400, L501.6710 #### [facility] [address] [place], [place], [address] Carbon dioxide, total [Moles /volume] in Central venous bloodOrdered By: Deonte Beckett on 12-08-2024 CO2 [Moles/Vol] 22.8 mmol/L 21.0-32.0 [facility] Chest 1 View (Portable)on Chest 1 View (Portable) [facility] Imaging Services [address] [place] [address] Chest 1 View (Portable) MR#: [id number] Acct: [id number] Name: FRIDA WIN Rep #: [id number] : 1980 F 44 From: Erickson Silvestre PCP: FILIBERTO Cooper Status: REG ER Study: Chest 1 View (Portable) Date of Exam: 12/08/24 Exam# [id number] Ordering Dr: Deonte Beckett DO PROCEDURE: CHEST [...] acute osseous process is seen. Reading Location: [place] [address] CC: RYANC Mela Walker; Dr. Deonte Beckett DO Fur Polisher: Signed Normal [facility] Chloride assayOrdered By: Cipriano Beckett on 12-08-2024 Chloride [Moles/Vol] 101 mmol/L 98-108 [facility] Comprehensive Metabolic Prof ilon 12-08-2024 Albumin [Mass/Vol] 4.0 g/dL Normal 3.5-5.0 [facility] Comment on above: Performed By: #### L 3100.5475, L100.0100, L505.7010, L101.9900, L4600.0100, L501.1400, L501.6710 #### [facility] [address] [place], [address] Albumin/Globulin [Mass ratio] 1.2 {ratio} Normal 0.9-2.4 [facility] Comment on above: Performed By: #### L 3100.5475, L100.0100, L505.7010, L101.9900, L4600.0100, L501.1400, L501.6710 #### [facility] [address] [place], [place], [phone] (412 ALK PHOS 81 U/L Normal 35-104 [facility] Comment on above: Performed By: #### L 3100.5475, L100.0100, L505.7010, L101.9900, L4600.0100, L501.1400, L501.6710 #### [facility] [address] [place], [address] ALT [Catalytic activity/Vol] 13 U/L Normal <=34 [facility] Comment on above: Performed By: #### L 3100.5475, L100.0100, L505.7010, L101.9900, L4600.0100, L501.1400, L501.6710 #### [facility] [address] [place], [address] AST [Catalytic activity/Vol] 19 U/L Normal <=31 [facility] Comment on above: Result Comment: Hemo lysis present, Results??could be affected. ?? Performed By: #### L 3100.5475, L100.0100, L505.7010, L101.9900, L4600.0100, L501.1400, L501.6710 #### [facility] [address] [place], [address] Bilirubin [Mass/Vol] 0.37 mg/dL Normal 0.00-1.30 [facility] Comment on above: Performed By: #### L 3100.5475, L100.0100, L505.7010, L101.9900, L4600.0100, L501.1400, L501.6710 #### [facility] [address] [place], [address] BUN/CRE 12.6 RATIO Normal 10-20 [facility] Comment on above: Performed By: #### L 3100.5475, L100.0100, L505.7010, L101.9900, L4600.0100, L501.1400, L501.6710 #### [facility] [address] [place], [address] Calcium [Mass/Vol] 9.1 mg/dL Normal 7.6-11.0 [facility] Comment on above: Performed By: #### L 3100.5475, L100.0100, L505.7010, L101.9900, L4600.0100, L501.1400, L501.6710 #### [facility] [address] [place], [address] Chloride [Moles/Vol] 101 mmol/L Normal 98-108 [facility] Comment on above: Performed By: #### L 3100.5475, L100.0100, L505.7010, L101.9900, L4600.0100, L501.1400, L501.6710 #### [facility] [address] [place], [address] CO2 [Moles/Vol] 22.8 mmol/L Normal 21.0-32.0 [facility] Comment on above: Performed By: #### L 3100.5475, L100.0100, L505.7010, L101.9900, L4600.0100, L501.1400, L501.6710 #### [facility] [address] [place], [address] Creatinine [Mass/Vol] 0.68 mg/dL Low 0.70-1.20 [facility] Comment on above: Performed By: #### L 3100.5475, L100.0100, L505.7010, L101.9900, L4600.0100, L501.1400, L501.6710 #### [facility] [address] [place], [address] ECRCL 127.80 ml/min Normal 50-250 [facility] Comment on above: Performed By: #### L 3100.5475, L100.0100, L505.7010, L101.9900, L4600.0100, L501.1400, L501.6710 #### [facility] [address] [place], [place], [phone] (274) GAP 11 Normal 5-15 [facility] Comment on above: Performed By: #### L 3100.5475, L100.0100, L505.7010, L101.9900, L4600.0100, L501.1400, L501.6710 #### [facility] [address] [place], [address] GFR/1.73 sq M.predicted among non-blacks MDRD (S/P/Bld) [Vol rate/Area] 111 mL/min/{1.73_m2} Normal >60 [facility] Comment on above: Result Comment: mL/m in/1.73m2 CKD-EPI Creatinine Equation (2020) Performed By: #### L 3100.5475, L100.0100, L505.7010, L101.9900, L4600.0100, L501.1400, L501.6710 #### [facility] [address] [place], [address] Globulin (S) [Mass/Vol] 3.4 g/dL Normal 2.2-4.2 [facility] Comment on above: Performed By: #### L 3100.5475, L100.0100, L505.7010, L101.9900, L4600.0100, L501.1400, L501.6710 #### [facility] [address] [place], [address] Glucose [Mass/Vol] 118 mg/dL High 70-99 [facility] Comment on above: Performed By: #### L 3100.5475, L100.0100, L505.7010, L101.9900, L4600.0100, L501.1400, L501.6710 #### [facility] [address] [place], [address] Potassium [Moles/Vol] 4.5 mmol/L Normal 3.3-5.1 [facility] Comment on above: Result Comment: Hemo lysis present, Results??could be affected. ?? Performed By: #### L 3100.5475, L100.0100, L505.7010, L101.9900, L4600.0100, L501.1400, L501.6710 #### [facility] [address] [place], [address] Sodium [Moles/Vol] 135 mmol/L Normal 133-145 [facility] Comment on above: Performed By: #### L 3100.5475, L100.0100, L505.7010, L101.9900, L4600.0100, L501.1400, L501.6710 #### [facility] [address] [place], [address] T PROT 7.4 g/dL Normal 5.9-8.4 [facility] Comment on above: Performed By: #### L 3100.5475, L100.0100, L505.7010, L101.9900, L4600.0100, L501.1400, L501.6710 #### [facility] [address] [place], [address] Urea nitrogen [Mass/Vol] 9 mg/dL Normal 4-19 [facility] Comment on above: Performed By: #### L 3100.5475, L100.0100, L505.7010, L101.9900, L4600.0100, L501.1400, L501.6710 #### [facility] [address] [place], [address] Emergency Department Summary on 12-08-2024 Emergency Department Summary [facility] Medical Records Department [address] [place] [address] Emergency Department Summary 12/08/24 MR#: [id number] Acct: [id number] Name: FRIDA WIN Rep #: [id number] : 1980 44 From: Deonte Beckett DO [...] that this is not unusual for her. 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 NIH is 0 GCS 15 patient completed finger-nose testing bilaterally without any difficulty Skin: Warm (more content not included)... Normal [facility] Eosinophil percentageOrdered By: Deonte Beckett on 12-08-2024 Eosinophils/100 WBC (Bld) 1.1 % 0-5 [facility] Erythrocyte distribution wid th ratioOrdered By: Deonte Beckett on 12-08-2024 Erythrocyte distribution width (RBC) [Ratio] 14.6 % 11.6-14.6 [facility] Erythrocyte distribution wid th standard deviationOrdered By: Deonte Beckett on 12-08-2024 Erythrocyte distribution width (RBC) [Ratio] 42.7 fl 35.1-43.9 [facility] Free T3on 12-08-2024 Free T3 [Mass/Vol] 3.3 pg/mL Normal 2.18-3.98 [facility] Comment on above: Performed By: #### L 3100.5475, L100.0100, L505.7010, L101.9900, L4600.0100, L501.1400, L501.6710 #### [facility] [address] [place], [address] Free D3Ifeyfya By: Deonte choudhary on 12-08-2024 Free T3 [Mass/Vol] 3.3 pg/mL 2.18-3.98 [facility] Glomerular filtration rate ( GFR) estimation/1.73 sq m using serum, plasma, or whole bOrdered By: Deonte Beckett on 12-08-2024 GFR/1.73 sq M.predicted among non-blacks MDRD (S/P/Bld) [Vol rate/Area] 111 mL/min/{1.73_m2} >60 [facility] Comment on above: mL/min/1.73m2 CKD-EP I Creatinine Equation (2020) Hematocrit Auto (Bld) [Volum e fraction]Ordered By: Deonte Beckett on 12-08-2024 Hematocrit (Bld) [Volume fraction] 44.9 % 37-47 [facility] Hemoglobin measurementOrdere d By: Deonte Beckett on 12-08-2024 Hemoglobin (Bld) [Mass/Vol] 14.4 g/dL 12.0-15.0 [facility] Immature granulocytes/100 WB C Auto (Bld)Ordered By: Deonte Beckett on 12-08-2024 Immature granulocytes/100 WBC (Bld) 0.500 % 0.0-0.9 [facility] Comment on above: IG% - Immature Granu locytes (promyelocytes, myelocytes and metamyelocytes) > 1% indicates that a LEFT SHIFT is Present. L499.0042on 12-08-2024 Trop T High Sen < 6 Normal <=14 [facility] Comment on above: Performed By: #### L 3100.5475, L100.0100, L505.7010, L101.9900, L4600.0100, L501.1400, L501.6710 #### [facility] [address] [place], [address] L499.0043on 12-08-2024 Trop T High Sen Normal <=14 [facility] Comment on above: Result Comment: Canc elled via OM: Order cancelled - Patient discharged Performed By: #### L 3100.5475, L100.0100, L505.7010, L101.9900, L4600.0100, L501.1400, L501.6710 #### [facility] [address] [place], [place], [address] Laboratory - Chemistry and C hemistry - challengeOrdered By: Deonte Beckett on 12-08-2024 AST [Catalytic activity/Vol] 19 U/L <32 [facility] Comment on above: Hemolysis present, R esults could be affected. Lipaseon 12-08-2024 Lipase [Catalytic activity/Vol] 15 U/L Normal 13-75 [facility] Comment on above: Result Comment: Plea se note: LIPASE revised reference range effective 22. New Lipase methodology. Expected to produce lower values than the previous assay method. NEW Reference Range: 13 - 75 U/L Performed By: #### L 3100.5475, L100.0100, L505.7010, L101.9900, L4600.0100, L501.1400, L501.6710 #### [facility] [address] [facility] [place], [place], [address] Lipase measurementOrdered By : Deonte Beckett on 12-08-2024 Lipase [Catalytic activity/Vol] 15 U/L 13-75 [facility] Comment on above: Please note:LIPASE r evised reference range effective 22. New Lipase methodology. Expected to produce lower values than the previous assay method. NEW Reference Range: 13 - 75 U/L MCV (mean corpuscular volume ) determinationOrdered By: Deonte Beckett on 12-08-2024 MCV (RBC) [Entitic vol] 80.8 fL Low 81-99 [facility] Mean corpuscular hemoglobin (MCH) determinationOrdered By: Deonte Beckett on 12-08-2024 MCH (RBC) [Entitic mass] 25.9 pg Low 27.0-32.0 [facility] Mean corpuscular hemoglobin concentration (MCHC) determinationOrdered By: Denote Beckett on 12-08-2024 MCHC (RBC) [Mass/Vol] 32.1 g/dL 32-36 [facility] Mean platelet volume determi nationOrdered By: Deonte Beckett on 12-08-2024 Platelet mean volume (Bld) [Entitic vol] 9.5 fL 6.2-12.0 [facility] Monocyte percentageOrdered B y: Deonte Beckett on 12-08-2024 Monocytes/100 WBC (Bld) 4.0 % 0-10 [facility] Neutrophil percentageOrdered By: Deonte Beckett on 12-08-2024 Neutrophils/100 WBC (Bld) 76.0 % High 47-70 [facility] Nucleated red blood cell per centageOrdered By: Deonte Beckett on 12-08-2024 Nucleated RBC/100 WBC (Bld) [Ratio] 0 % 0-5 [facility] Platelet countOrdered By: Cipriano Beckett on 12-08-2024 Platelets (Bld) [#/Vol] 367 10*3/uL 150-450 [facility] Potassium measurement (mass/ volume)Ordered By: Deonte Beckett on 12-08-2024 Potassium (Unsp spec) [Mass/Vol] 4.5 mmol/L 3.3-5.1 [facility] Comment on above: Hemolysis present, R esults could be affected. ,Serum,hCG Quali.on 12-08-2024 HCG, SERUM QUAL Negative Normal [facility] Comment on above: Performed By: #### L 3100.5475, L100.0100, L505.7010, L101.9900, L4600.0100, L501.1400, L501.6710 #### [facility] [address] [place], [address] RBC Auto (Bld) [#/Vol]Ordere d By: Deonte Beckett on 12-08-2024 RBC (Bld) [#/Vol] 5.56 10*6/uL High 4.2-5.4 [facility] Serum beta-hCG test, qualita tiveOrdered By: Deonte Beckett on 12-08-2024 Beta HCG ( test) Ql Negative [facility] Serum creatinine measurement (mass/volume)Ordered By: Deonte Beckett on 12-08-2024 Creatinine [Mass/Vol] 0.68 mg/dL Low 0.70-1.20 [facility] Serum globulin measurementOr dered By: Deonte Beckett on 12-08-2024 Globulin (S) [Mass/Vol] 3.4 g/dL 2.2-4.2 [facility] Serum glucose measurement (m ass/volume)Ordered By: Deonte Beckett on 12-08-2024 Glucose [Mass/Vol] 118 mg/dL High 70-99 [facility] Serum or plasma alanine zavala otransferase (ALT) measurementOrdered By: Deonte Beckett on 12-08-2024 ALT [Catalytic activity/Vol] 13 U/L <35 [facility] Serum or plasma albumin emanuel urement (mass/volume)Ordered By: Deonte Beckett on 12-08-2024 Albumin [Mass/Vol] 4.0 g/dL 3.5-5.0 [facility] Serum or plasma albumin/glob ulin mass ratioOrdered By: Deonte Beckett on 12-08-2024 Albumin/Globulin [Mass ratio] 1.2 {ratio} 0.9-2.4 [facility] Serum or plasma alkaline treva sphatase measurementOrdered By: Deonte Beckett on 12-08-2024 ALP [Catalytic activity/Vol] 81 U/L 35-104 [facility] Serum or plasma calcium emanuel urement (mass/volume)Ordered By: Deonte Beckett on 12-08-2024 Calcium [Mass/Vol] 9.1 mg/dL 7.6-11.0 [facility] Serum or plasma urea nitroge n measurement (mass/volume)Ordered By: Deonte Beckett on 12-08-2024 Urea nitrogen [Mass/Vol] 9 mg/dL 4-19 [facility] Sodium levelOrdered By: John Beckett on 12-08-2024 Sodium [Moles/Vol] 135 mmol/L 133-145 [facility] T4 Free Directon 12-08-2024 T4 FREE DIRECT 1.10 ng/dL Normal 0.76-1.46 [facility] Comment on above: Performed By: #### L 3020.3221, L100.0100, L505.7010, L101.9900, L4600.0100, L501.1400, L501.6710 #### [facility] [place], [address] T4 freeOrdered By: Deonte choudhary on 12-08-2024 Free T4 [Mass/Vol] 1.10 ng/dL 0.76-1.46 [facility] TSH DL <= 0.005 mIU/L QnOrde red By: Deonte Beckett on 12-08-2024 TSH Qn 0.674 uIU/mL 0.300-4.200 [facility] Thyroid Stim Hormone (TSH)on 12-08-2024 TSH 0.674 uIU/mL Normal 0.300-4.200 [facility] Comment on above: Performed By: #### L 3100.5475, L100.0100, L505.7010, L101.9900, L4600.0100, L501.1400, L501.6710 #### [facility] [address] [place], [address] Total proteinOrdered By: Lisa Beckett on 12-08-2024 Protein [Mass/Vol] 7.4 g/dL 5.9-8.4 [facility] Troponin T.cardiac [Mass/vol ume] in Serum or Plasma by High sensitivity methodOrdered By: Deonte Beckett on 12-08-2024 Troponin T.cardiac High sensitivity method [Mass/Vol] < 6 ng/L <14 [facility] White blood cell (WBC) count Ordered By: Deonte Beckett on 12-08-2024 WBC (Bld) [#/Vol] 9.8 10*3/uL 4.4-11.0 [facility] Insulation Board Coater Operator Office Visit Reporton 10-14-2024 Insulation Board Coater Operator Office Visit Report [facility] [address], [address] [place] [address] OFFICE VISIT Date of Service: 10/14/24 MR#: [id number] Acct: [id number] Name: FRIDA WIN José Rep #: [id number] : 1980 Provider: FILIBERTO Anguiano Age/Sex: 44/F [place] [facility] [place]: Signed Intake Vital Signs 08/06/23 09:24 10/14/24 15:07 Height 5 ft 3 in 5 ft 3 in Weight: 247 lb BMI 43.7 BP 137/81 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 Normal [facility] S-I Jts 3 or More Viewson S-I Jts 3 or More Views [facility] Imaging Services [address] [place], [place] [id number] S-I Jts 3 or More Views MR#: [id number] Acct: [id number] Name: FRIDA WIN Rep #: [id number] : 1980 F 43 From: Erickson Silvestre PCP: FILIBERTO Cooper Status: REG CLI Study: S-I Jts 3 or More Views Date of Exam: 07/30/24 Exam# [id number] Ordering Dr: Mela Walker PROCEDURE: S-I JTS 3 OR MORE VIEWS [...] fracture or dislocation is evident. Reading Location: [address] CC: NUTRITIONAL ASSISTANTDalila Walker Fur Polisher: Signed Normal [facility] CBC W/Diff, Automatedon 02 Absolute Lymph 2.29 X10 3/uL Normal 0.83-4.51 [facility] Comment on above: Performed By: #### L 500.4050, L506.0400, L506.1000, L503.0105, L500.4100, L503.6550, L501.9985, L501.9520, L503.6030, L100.0100, L506.0250 #### [facility] [address] [place], [place], [id number] Absolute Neut 6.0 X10 3/uL Normal 2.0-7.7 [facility] Comment on above: Performed By: #### L 500.4050, L506.0400, L506.1000, L503.0105, L500.4100, L503.6550, L501.9985, L501.9520, L503.6030, L100.0100, L506.0250 #### [facility] [address] [place], [place], [id number] (591) Basophils/100 WBC (Bld) 0.9 % Normal 0-1 [facility] Comment on above: Performed By: #### L 500.4050, L506.0400, L506.1000, L503.0105, L500.4100, L503.6550, L501.9985, L501.9520, L503.6030, L100.0100, L506.0250 #### [facility] [address] [place], [address] (355) Eosinophils/100 WBC (Bld) 1.2 % Normal 0-5 [facility] Comment on above: Performed By: #### L 500.4050, L506.0400, L506.1000, L503.0105, L500.4100, L503.6550, L501.9985, L501.9520, L503.6030, L100.0100, L506.0250 #### [facility] [address] [place], [address] Erythrocyte distribution width (RBC) [Ratio] 15.3 % High 11.6-14.6 [facility] Comment on above: Performed By: #### L 500.4050, L506.0400, L506.1000, L503.0105, L500.4100, L503.6550, L501.9985, L501.9520, L503.6030, L100.0100, L506.0250 #### [facility] [address] [place], [address] (850) Hematocrit (Bld) [Volume fraction] 43.4 % Normal 37-47 [facility] Comment on above: Performed By: #### L 500.4050, L506.0400, L506.1000, L503.0105, L500.4100, L503.6550, L501.9985, L501.9520, L503.6030, L100.0100, L506.0250 #### [facility] [address] [place], [place], [id number] (531) Hemoglobin (Bld) [Mass/Vol] 14.0 g/dL Normal 12.0-15.0 [facility] Comment on above: Performed By: #### L 500.4050, L506.0400, L506.1000, L503.0105, L500.4100, L503.6550, L501.9985, L501.9520, L503.6030, L100.0100, L506.0250 #### [facility] [address] [place], [place], [phone] (013) IG% 0.600 Normal 0.0-0.9 [facility] Comment on above: Result Comment: IG% - Immature Granulocytes (promyelocytes, myelocytes and metamyelocytes) > 1% indicates that a LEFT SHIFT is Present. Performed By: #### L 500.4050, L506.0400, L506.1000, L503.0105, L500.4100, L503.6550, L501.9985, L501.9520, L503.6030, L100.0100, L506.0250 #### [facility] [address] [place], [address] Lymphocytes/100 WBC (Bld) 25.7 % Normal 19-41 [facility] Comment on above: Performed By: #### L 500.4050, L506.0400, L506.1000, L503.0105, L500.4100, L503.6550, L501.9985, L501.9520, L503.6030, L100.0100, L506.0250 #### [facility] [address] [place], [address] MCH (RBC) [Entitic mass] 25.7 pg Low 27.0-32.0 [facility] Comment on above: Performed By: #### L 500.4050, L506.0400, L506.1000, L503.0105, L500.4100, L503.6550, L501.9985, L501.9520, L503.6030, L100.0100, L506.0250 #### [facility] [address] [place], [address] MCHC (RBC) [Mass/Vol] 32.3 g/dL Normal 32-36 [facility] Comment on above: Performed By: #### L 500.4050, L506.0400, L506.1000, L503.0105, L500.4100, L503.6550, L501.9985, L501.9520, L503.6030, L100.0100, L506.0250 #### [facility] [address] [place], [address] MCV (RBC) [Entitic vol] 79.6 fL Low 81-99 [facility] Comment on above: Performed By: #### L 500.4050, L506.0400, L506.1000, L503.0105, L500.4100, L503.6550, L501.9985, L501.9520, L503.6030, L100.0100, L506.0250 #### [facility] [address] [place], [address] Monocytes/100 WBC (Bld) 4.4 % Normal 0-10 [facility] Comment on above: Performed By: #### L 500.4050, L506.0400, L506.1000, L503.0105, L500.4100, L503.6550, L501.9985, L501.9520, L503.6030, L100.0100, L506.0250 #### [facility] [address] [place], [address] Neutrophils/100 WBC (Bld) 67.2 % Normal 47-70 [facility] Comment on above: Performed By: #### L 500.4050, L506.0400, L506.1000, L503.0105, L500.4100, L503.6550, L501.9985, L501.9520, L503.6030, L100.0100, L506.0250 #### [facility] [address] [place], [address] (739) Nucleated RBC (Bld) [#/Vol] 0 10*3/uL Normal 0-5 [facility] Comment on above: Performed By: #### L 500.4050, L506.0400, L506.1000, L503.0105, L500.4100, L503.6550, L501.9985, L501.9520, L503.6030, L100.0100, L506.0250 #### [facility] [address] [place], [place], [phone] (293 Platelet mean volume (Bld) [Entitic vol] 9.4 fL Normal 6.2-12.0 [facility] Comment on above: Performed By: #### L 500.4050, L506.0400, L506.1000, L503.0105, L500.4100, L503.6550, L501.9985, L501.9520, L503.6030, L100.0100, L506.0250 #### [facility] [address] [place], [address] Platelets (Bld) [#/Vol] 398 10*3/uL Normal 150-450 [facility] Comment on above: Performed By: #### L 500.4050, L506.0400, L506.1000, L503.0105, L500.4100, L503.6550, L501.9985, L501.9520, L503.6030, L100.0100, L506.0250 #### [facility] [address] [place], [place], [id number] RBC (Bld) [#/Vol] 5.45 10*6/uL High 4.2-5.4 [facility] Comment on above: Performed By: #### L 500.4050, L506.0400, L506.1000, L503.0105, L500.4100, L503.6550, L501.9985, L501.9520, L503.6030, L100.0100, L506.0250 #### [facility] [address] [place], [place], [id number] RDW SD 43.7 fl Normal 35.1-43.9 [facility] Comment on above: Performed By: #### L 500.4050, L506.0400, L506.1000, L503.0105, L500.4100, L503.6550, L501.9985, L501.9520, L503.6030, L100.0100, L506.0250 #### [facility] [address] [place], [place], [phone] (531) WBC (Bld) [#/Vol] 8.9 10*3/uL Normal 4.4-11.0 [facility] Comment on above: Performed By: #### L 500.4050, L506.0400, L506.1000, L503.0105, L500.4100, L503.6550, L501.9985, L501.9520, L503.6030, L100.0100, L506.0250 #### [facility] [address] [place], [place], [phone] Comprehensive Metabolic Prof ilon 07-22-2024 Albumin [Mass/Vol] 3.5 g/dL Normal 3.2-5.0 [facility] Comment on above: Performed By: #### L 3100.5475, L100.0100, L505.7010, L101.9900, L4600.0100, L501.1400, L501.6710 #### [facility] [address] [place], [address] Albumin/Globulin [Mass ratio] 0.8 {ratio} Low 0.9-2.4 [facility] Comment on above: Performed By: #### L 3100.5475, L100.0100, L505.7010, L101.9900, L4600.0100, L501.1400, L501.6710 #### [facility] [address] [place], [address] ALK P 82 U/L Normal 45-117 [facility] Comment on above: Performed By: #### L 3100.5475, L100.0100, L505.7010, L101.9900, L4600.0100, L501.1400, L501.6710 #### [facility] [address] [place], [address] ALT [Catalytic activity/Vol] 20 U/L Normal 13-56 [facility] Comment on above: Performed By: #### L 3100.5475, L100.0100, L505.7010, L101.9900, L4600.0100, L501.1400, L501.6710 #### [facility] [address] [place], [address] AST [Catalytic activity/Vol] 12 U/L Low 15-37 [facility] Comment on above: Performed By: #### L 3100.5475, L100.0100, L505.7010, L101.9900, L4600.0100, L501.1400, L501.6710 #### [facility] [address] [place], [address] Bilirubin [Mass/Vol] 0.40 mg/dL Normal 0.20-1.00 [facility] Comment on above: Result Comment: For patients on eltrombopag therapy, use of Dimension Alpha TBIL is not recommended. Performed By: #### L 3100.5475, L100.0100, L505.7010, L101.9900, L4600.0100, L501.1400, L501.6710 #### [facility] [address] [place], [address] BUN/CRE 13.6 RATIO Normal 10-20 [facility] Comment on above: Performed By: #### L 3100.5475, L100.0100, L505.7010, L101.9900, L4600.0100, L501.1400, L501.6710 #### [facility] [address] [place], [address] CA,Total 9.6 mg/dL Normal 8.5-10.1 [facility] Comment on above: Performed By: #### L 3100.5475, L100.0100, L505.7010, L101.9900, L4600.0100, L501.1400, L501.6710 #### [facility] [address] [place], [address] Chloride [Moles/Vol] 106 mmol/L Normal 98-107 [facility] Comment on above: Performed By: #### L 3100.5475, L100.0100, L505.7010, L101.9900, L4600.0100, L501.1400, L501.6710 #### [facility] [address] [place], [address] CO2 [Moles/Vol] 27.0 mmol/L Normal 21.0-32.0 [facility] Comment on above: Performed By: #### L 3100.5475, L100.0100, L505.7010, L101.9900, L4600.0100, L501.1400, L501.6710 #### [facility] [address] [place], [place], [id number] Creatinine [Mass/Vol] 0.73 mg/dL Normal 0.55-1.02 [facility] Comment on above: Result Comment: The validity of the calculated GFR GFRAA in patients over 70 years has not been determined. Clinical correlation is essential. Performed By: #### L 3100.5475, L100.0100, L505.7010, L101.9900, L4600.0100, L501.1400, L501.6710 #### [facility] [address] [place], [place], [phone] EST GFR - AA 111 mL/min Normal >60 [facility] Comment on above: Result Comment: Afri can [place] GFR Calc Performed By: #### L 3100.5475, L100.0100, L505.7010, L101.9900, L4600.0100, L501.1400, L501.6710 #### [facility] [address] [place], [place], [phone] GAP 4 Low 5-15 [facility] Comment on above: Performed By: #### L 3100.5475, L100.0100, L505.7010, L101.9900, L4600.0100, L501.1400, L501.6710 #### [facility] [address] [place], [place], [id number] GFR/1.73 sq M.predicted among non-blacks MDRD (S/P/Bld) [Vol rate/Area] 92 mL/min/{1.73_m2} Normal >60 [facility] Comment on above: Result Comment: Non- GFR Calc Performed By: #### L 3100.5475, L100.0100, L505.7010, L101.9900, L4600.0100, L501.1400, L501.6710 #### [facility] [address] [place], [address] Globulin (S) [Mass/Vol] 4.2 g/dL Normal 2.2-4.2 [facility] Comment on above: Performed By: #### L 3100.5475, L100.0100, L505.7010, L101.9900, L4600.0100, L501.1400, L501.6710 #### [facility] [address] [place], [address] Glucose [Mass/Vol] 96 mg/dL Normal 74-106 [facility] Comment on above: Performed By: #### L 3100.5475, L100.0100, L505.7010, L101.9900, L4600.0100, L501.1400, L501.6710 #### [facility] [address] [place], [address] Potassium [Moles/Vol] 4.4 mmol/L Normal 3.5-5.1 [facility] Comment on above: Performed By: #### L 3100.5475, L100.0100, L505.7010, L101.9900, L4600.0100, L501.1400, L501.6710 #### [facility] [address] [place], [address] Sodium [Moles/Vol] 137 mmol/L Normal 136-145 [facility] Comment on above: Performed By: #### L 3100.5475, L100.0100, L505.7010, L101.9900, L4600.0100, L501.1400, L501.6710 #### [facility] [address] [place], [address] T PROT 7.7 g/dL Normal 6.4-8.2 [facility] Comment on above: Performed By: #### L 3100.5475, L100.0100, L505.7010, L101.9900, L4600.0100, L501.1400, L501.6710 #### [facility] [address] [place], [place], [id number] Urea nitrogen [Mass/Vol] 10 mg/dL Normal 7-18 [facility] Comment on above: Performed By: #### L 3100.5475, L100.0100, L505.7010, L101.9900, L4600.0100, L501.1400, L501.6710 #### [facility] [address] [place], [address] Ferritinon 07-22-2024 Ferritin [Mass/Vol] 198 ng/mL Normal 8-252 [facility] Comment on above: Performed By: #### L 3100.5475, L100.0100, L505.7010, L101.9900, L4600.0100, L501.1400, L501.6710 #### [facility] [address] [place], [address] Folates, (Folic Acid)on FOLATES 6.80 ng/mL Normal 3.1-55.4 [facility] Comment on above: Order Comment: N Performed By: #### L 3100.5475, L100.0100, L505.7010, L101.9900, L4600.0100, L501.1400, L501.6710 #### [facility] [address] [place], [address] Hemoglobin A1con 07-22-2024 HbA1c (Bld) [Mass fraction] 5.5 % Normal 3.8-5.6 [facility] Comment on above: Result Comment: Norm al < 5.7 % Prediabetic 5.7 - 6.4 % Diabetic >or= 6.5 % Please note range changes. Performed By: #### L 3100.5475, L100.0100, L505.7010, L101.9900, L4600.0100, L501.1400, L501.6710 #### [facility] [address] [place], [address] Iron+Iron Binding Capacityon 07-22-2024 Iron [Mass/Vol] 45 ug/dL Low 50-170 [facility] Comment on above: Performed By: #### L 3100.5475, L100.0100, L505.7010, L101.9900, L4600.0100, L501.1400, L501.6710 #### [facility] [address] [place], [address] IRON SATURATION 18.9 Normal 15.0-55.0 [facility] Comment on above: Performed By: #### L 3100.5475, L100.0100, L505.7010, L101.9900, L4600.0100, L501.1400, L501.6710 #### [facility] [address] [place], [address] TIBC 238 ug/dL Low 250-450 [facility] Comment on above: Performed By: #### L 3100.5475, L100.0100, L505.7010, L101.9900, L4600.0100, L501.1400, L501.6710 #### [facility] [address] [place], [address] Lipid Profileon 07-22-2024 Cholesterol [Mass/Vol] 167 mg/dL Normal 200 [facility] Comment on above: Result Comment: <200 mg/dL Desirable 200-240 mg/dL Borderline >240 mg/dL High Risk Performed By: #### L 3100.5475, L100.0100, L505.7010, L101.9900, L4600.0100, L501.1400, L501.6710 #### [facility] [address] [place], [address] Cholesterol in HDL [Mass/Vol] 56 mg/dL Normal [facility] Comment on above: Result Comment: The drugs N-Acetylcysteine and Metamizole may falsely depress this assay. Reference Range HDL <40 mg/dL Low HDL Cholesterol HDL >or= 60 mg/dL High HDL Cholesterol Performed By: #### L 3100.5475, L100.0100, L505.7010, L101.9900, L4600.0100, L501.1400, L501.6710 #### [facility] [address] [place], [address] Cholesterol in LDL [Mass/Vol] 95 mg/dL Normal 0-130 [facility] Comment on above: Performed By: #### L 3100.5475, L100.0100, L505.7010, L101.9900, L4600.0100, L501.1400, L501.6710 #### [facility] [address] [place], [place], [phone] ([address] Cholesterol in VLDL [Mass/Vol] 16 mg/dL Normal 5-40 [facility] Comment on above: Performed By: #### L 3100.5475, L100.0100, L505.7010, L101.9900, L4600.0100, L501.1400, L501.6710 #### [facility] [address] [place], [address] Triglyceride [Mass/Vol] 82 mg/dL Normal [facility] Comment on above: Result Comment: The drugs N-Acetylcysteine and Metamizole may falsely depress this assay. Serum Triglycerides Reference Interval Normal <150 mg/dL Borderline high 150 - 199 mg/dL High 200 - 499 mg/dL Very High > or = 500 mg/dL Performed By: #### L 3100.5475, L100.0100, L505.7010, L101.9900, L4600.0100, L501.1400, L501.6710 #### [facility] [address] [place], [address] T4 Free Directon 07-22-2024 T4 FREE DIRECT 1.03 ng/dL Normal 0.76-1.46 [facility] Comment on above: Order Comment: N Performed By: #### L 3100.5475, L100.0100, L505.7010, L101.9900, L4600.0100, L501.1400, L501.6710 #### [facility] [address] [facility] [place], [address] Thyroid Stim Hormone (TSH)on 07-22-2024 TSH 1.460 uIU/mL Normal 0.358-3.740 [facility] Comment on above: Performed By: #### L 3100.5475, L100.0100, L505.7010, L101.9900, L4600.0100, L501.1400, L501.6710 #### [facility] [address] [facility] [place], [address] Vitamin B12on 07-22-2024 Cobalamin (Vitamin B12) [Mass/Vol] 893 pg/mL Normal 211-911 [facility] Comment on above: Performed By: #### L 3100.5475, L100.0100, L505.7010, L101.9900, L4600.0100, L501.1400, L501.6710 #### [facility] [address] [facility] [place], [address] Vitamin D,25 Hydroxyon 07-22 Vitamin D 25-OH 31.7 ng/mL Normal [facility] Comment on above: Result Comment: Merari min D 25(OH) Status Range Deficiency <20 ng/mL (50nmol/L) Insufficiency 20 - 30 ng/mL (50 - 75 nmol/L) Sufficiency 30 - 100 ng/mL (75 - 250 nmol/L) Toxicity >100 ng/mL (>250 nmol/L) Performed By: #### L 3100.5475, L100.0100, L505.7010, L101.9900, L4600.0100, L501.1400, L501.6710 #### [facility] [address] [facility] 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 Beverlynavarrofrankie Signature: Date (if applicable) CC: Normal [facility] SCRN MAMM (CAD)W/ORTIZ BILATo n 03-21-2024 SCRN MAMM (CAD)W/ORTIZ BILAT [facility] Imaging Services [address] [place] [id number] SCRN MAMM (CAD)W/ORTIZ BILAT MR#: [id number] Acct: [id number] Name: FRIDA WIN Rep #: [id number] : 1980 F 43 From: Sherwin torres MD PCP: FILIBERTO Cooper Status: [facility] Study: SCRN MAMM (CAD)W/ORTIZ BILAT Date of Exam: 10/09 Exam# [id number] Ordering Dr: Mela Walker [id number] MAMMOGRAPHY - BILATERAL SCREENING REASON FOR EXAM: [...] delay biopsy of a clinically suspicious abnormality. [id number] Electronically Signed: Sherwin Johnson MD at 8:38 EDT Reading Location ID and State: [address] [place] [address] , Service support , CC: FILIBERTO Walker Fur Polisher: Signed Normal [facility] CBC, Employeeon 03-13-2024 Absolute Lymph 2.09 X10 3/uL Normal 0.83-4.51 [facility] Comment on above: Performed By: #### L 500.2900, L100.0200 #### [facility] [address] [place], [place], [id number] Absolute Neut 6.3 X10 3/uL Normal 2.0-7.7 [facility] Comment on above: Performed By: #### L 500.2900, L100.0200 #### [facility] [address] [place], [place], [address] Basophils/100 WBC (Bld) 1.0 % Normal 0-1 [facility] Comment on above: Performed By: #### L 500.2900, L100.0200 #### [facility] [address] [place], [address] Eosinophils/100 WBC (Bld) 1.5 % Normal 0-5 [facility] Comment on above: Performed By: #### L 500.2900, L100.0200 #### [facility] [address] [place], [address] Erythrocyte distribution width (RBC) [Ratio] 15.1 % High 11.6-14.6 [facility] Comment on above: Performed By: #### L 500.2900, L100.0200 #### [facility] [address] [place], [address] Hematocrit (Bld) [Volume fraction] 45.4 % Normal 37-47 [facility] Comment on above: Performed By: #### L 500.2900, L100.0200 #### [facility] [address] [place], [address] Hemoglobin (Bld) [Mass/Vol] 14.2 g/dL Normal 12.0-15.0 [facility] Comment on above: Performed By: #### L 500.2900, L100.0200 #### [facility] [address] [place], [address] Lymphocytes/100 WBC (Bld) 22.7 % Normal 19-41 [facility] Comment on above: Performed By: #### L 500.2900, L100.0200 #### [facility] [address] [place], [address] MCH (RBC) [Entitic mass] 25.3 pg Low 27.0-32.0 [facility] Comment on above: Performed By: #### L 500.2900, L100.0200 #### [facility] [address] [place], [address] MCHC (RBC) [Mass/Vol] 31.3 g/dL Low 32-36 [facility] Comment on above: Performed By: #### L 500.2900, L100.0200 #### [facility] [address] [place], [address] MCV (RBC) [Entitic vol] 80.9 fL Low 81-99 [facility] Comment on above: Performed By: #### L 500.2900, L100.0200 #### [facility] [address] [place], [address] Monocytes/100 WBC (Bld) 6.1 % Normal 0-10 [facility] Comment on above: Performed By: #### L 500.2900, L100.0200 #### [facility] [address] [place], [address] Neutrophils/100 WBC (Bld) 68.3 % Normal 47-70 [facility] Comment on above: Performed By: #### L 500.2900, L100.0200 #### [facility] [address] [place], [address] NRBC # 0.00 10 3/uL Normal 0-5 [facility] Comment on above: Performed By: #### L 500.2900, L100.0200 #### [facility] [address] [place], [address] Nucleated RBC (Bld) [#/Vol] 0 10*3/uL Normal 0-5 [facility] Comment on above: Performed By: #### L 500.2900, L100.0200 #### [facility] [address] [place], [address] Platelet mean volume (Bld) [Entitic vol] 10.0 fL Normal 6.2-12.0 [facility] Comment on above: Performed By: #### L 500.2900, L100.0200 #### [facility] [address] [place], [address] Platelets (Bld) [#/Vol] 375 10*3/uL Normal 150-450 [facility] Comment on above: Performed By: #### L 500.2900, L100.0200 #### [facility] [address] [place], [address] RBC (Bld) [#/Vol] 5.61 10*6/uL High 4.2-5.4 [facility] Comment on above: Performed By: #### L 500.2900, L100.0200 #### [facility] [address] [place], [address] RDW SD 44.7 fl High 35.1-43.9 [facility] Comment on above: Performed By: #### L 500.2900, L100.0200 #### [facility] [address] [place], [address] WBC (Bld) [#/Vol] 9.2 10*3/uL Normal 4.4-11.0 [facility] Comment on above: Performed By: #### L 500.2900, L100.0200 #### [facility] [address] [place], [address] DRUGS OF ABUSE SCREEN, URINE on 03-13-2024 AMPHETAMINE SCREEN, URINE Positive Abnormal None Detected [facility] Comment on above: Order Comment: Scree n results should be used for treatment purposes only. Specimen will be kept for 2 weeks, if the sample is adequate. Confirmation testing can be initiated by calling the lab within 2 weeks. Result Comment: Urin e Amphetamine Cutoff: < 1000 ng/mL = None Detected Performed By: #### 4 6965 #### [facility] [address], [place] [address] Julio Olivares M.D. [id number] BARBITURATE SCREEN URINE Not detected Normal None Detected [facility] Comment on above: Order Comment: Scree n results should be used for treatment purposes only. Specimen will be kept for 2 weeks, if the sample is adequate. Confirmation testing can be initiated by calling the lab within 2 weeks. Result Comment: Urin e Barbiturates Cutoff: < 200 ng/mL = None Detected Performed By: #### 4 6965 #### [facility] [address] [place] [address] Julio Olivares M.D. [id number] BENZODIAZEPINE SCREEN, URINE Not detected Normal None Detected [facility] Comment on above: Order Comment: Scree n results should be used for treatment purposes only. Specimen will be kept for 2 weeks, if the sample is adequate. Confirmation testing can be initiated by calling the lab within 2 weeks. Result Comment: Urin e Benzodiazepine Cutoff: < 200 ng/mL = None Detected Performed By: #### 4 6965 #### [facility] [address] [place] [address] Julio Olivares M.D. [id number] BUPRENORPHINE, URINE Not detected Normal None Detected [facility] Comment on above: Order Comment: Scree n results should be used for treatment purposes only. Specimen will be kept for 2 weeks, if the sample is adequate. Confirmation testing can be initiated by calling the lab within 2 weeks. Result Comment: Urin e Buprenorphine Cutoff: < 5 ng/mL = None Detected Performed By: #### 4 6965 #### [facility] [address] [place] [address] Julio Olivares M.D. [id number] CANNABINOID SCREEN URINE Not detected Normal None Detected [facility] Comment on above: Order Comment: Scree n results should be used for treatment purposes only. Specimen will be kept for 2 weeks, if the sample is adequate. Confirmation testing can be initiated by calling the lab within 2 weeks. Result Comment: Urin e Cannabinoids Cutoff: < 50 ng/mL = None Detected Performed By: #### 4 6965 #### [facility] [address] [place] [address] Jluio Olivares M.D. [id number] COCAINE, SCREEN URINE Not detected Normal None Detected [facility] Comment on above: Order Comment: Scree n results should be used for treatment purposes only. Specimen will be kept for 2 weeks, if the sample is adequate. Confirmation testing can be initiated by calling the lab within 2 weeks. Result Comment: Urin e Cocaine Cutoff: < 300 ng/mL = None Detected Performed By: #### 4 6965 #### [facility] [address] [place] [address] Julio Olivares M.D. [id number] FENTANYL, URINE Not detected Normal None Detected [facility] Comment on above: Order Comment: Scree n results should be used for treatment purposes only. Specimen will be kept for 2 weeks, if the sample is adequate. Confirmation testing can be initiated by calling the lab within 2 weeks. Result Comment: Urin e Fentanyl Cutoff: < 1 ng/mL = None Detected Performed By: #### 4 6965 #### [facility] [address] [place] [address] Julio Olivares M.D. [id number] METHADONE SCREEN, URINE Not detected Normal None Detected [facility] Comment on above: Order Comment: Scree n results should be used for treatment purposes only. Specimen will be kept for 2 weeks, if the sample is adequate. Confirmation testing can be initiated by calling the lab within 2 weeks. Result Comment: Urin e Methadone Cutoff: < 300 ng/mL = None Detected Performed By: #### [id number] #### LAB [address] [address] Julio Olivares M.D. [id number] OPIATE SCREEN URINE Not detected Normal None Detected [facility] Comment on above: Order Comment: Scree n results should be used for treatment purposes only. Specimen will be kept for 2 weeks, if the sample is adequate. Confirmation testing can be initiated by calling the lab within 2 weeks. Result Comment: Urin e Opiates Cutoff: < 300 ng/mL = None Detected Performed By: #### 4 [id number] #### [facility] [address] [address] Julio Olivares M.D. [id number] OXYCODONE SCREEN, URINE Not detected Normal None Detected [facility] Comment on above: Order Comment: Scree n results should be used for treatment purposes only. Specimen will be kept for 2 weeks, if the sample is adequate. Confirmation testing can be initiated by calling the lab within 2 weeks. Result Comment: Urin e Oxycodone Cutoff: < 100 ng/mL = None Detected Performed By: #### [id number] #### LAB [address], [place] [address] Julio Olivares M.D. [id number] Drugs of Abuse Screen, Urine Ordered By: Sharyn Patel on 03-13-2024 Amphetamines Ql (U) Positive Abnormal None Detected [facility] Comment on above: Urine Amphetamine Cu toff: < 1000 ng/mL = None Detected Barbiturates Screen Ql (U) Not detected None Detected [facility] Comment on above: Urine Barbiturates C utoff: < 200 ng/mL = None Detected Benzodiazepines Ql (U) Not detected None Detected [facility] Comment on above: Urine Benzodiazepine Cutoff: < 200 ng/mL = None Detected Buprenorphine Ql (U) Not detected None Detected [facility] Comment on above: Urine Buprenorphine Cutoff: < 5 ng/mL = None Detected Cannabinoids Screen Ql (U) Not detected None Detected [facility] Comment on above: Urine Cannabinoids C utoff: < 50 ng/mL = None Detected Cocaine Ql (U) Not detected None Detected [facility] Comment on above: Urine Cocaine Cutoff : < 300 ng/mL = None Detected fentaNYL+Norfentanyl Screen Ql (U) Not detected None Detected [facility] Comment on above: Urine Fentanyl Cutof f: < 1 ng/mL = None Detected Interpretation and review of laboratory results Abnormal [facility] Methadone Screen Ql (U) Not detected None Detected [facility] Comment on above: Urine Methadone Cuto ff: < 300 ng/mL = None Detected Opiates Screen Ql (U) Not detected None Detected [facility] Comment on above: Urine Opiates Cutoff : < 300 ng/mL = None Detected oxyCODONE Ql (U) Not detected None Detected [facility] Comment on above: Urine Oxycodone Cuto ff: < 100 ng/mL = None Detected Screen results shoul d be used for treatment purposes only. Specimen will be kept for 2 weeks, if the sample is adequate. Confirmation testing can be initiated by calling the lab within 2 weeks. [facility] Employee Profileon 4 Albumin [Mass/Vol] 4.0 g/dL Normal 3.2-5.0 [facility] Comment on above: Result Comment: AMENDED REPORT 03/13/24 3929 ALB previously reported as: 3.6 g/dL Performed By: #### L 500.2900, L100.0200 #### [facility] [address] [place], [address] Albumin/Globulin [Mass ratio] 1.0 {ratio} Normal 0.9-2.4 [facility] Comment on above: Result Comment: AMENDED REPORT 03/13/241558 A/G previously reported as: 0.9 RATIO Performed By: #### L 500.2900, L100.0200 #### [facility] [address] [place], [address] ALK P 73 U/L Normal 45-117 [facility] Comment on above: Result Comment: AMENDED REPORT 03/13/241558 ALK P previously reported as: 89 U/L Performed By: #### L 500.2900, L100.0200 #### [facility] [address] [place], [address] ALT [Catalytic activity/Vol] 20 U/L Normal 13-56 [facility] Comment on above: Result Comment: AMENDED REPORT 03/13/241558 ALT previously reported as: 21 U/L Performed By: #### L 500.2900, L100.0200 #### [facility] [address] [place], [address] AST [Catalytic activity/Vol] 16 U/L Normal 15-37 [facility] Comment on above: Result Comment: AMENDED REPORT 03/13/241558 AST previously reported as: 14 L U/L Performed By: #### L 500.2900, L100.0200 #### [facility] [address] [place], [address] Bilirubin [Mass/Vol] 0.40 mg/dL Normal 0.20-1.00 [facility] Comment on above: Result Comment: For patients on eltrombopag therapy, use of Dimension Alpha TBIL is not recommended. For patients on eltrombopag therapy, use of Dimension Alpha TBIL is not recommended. AMENDED REPORT 03/13/241558 T BILI previously reported as: 0.20 mg/dL For patients on eltrombopag therapy, use of Dimension Alpha TBIL is not recommended. Performed By: #### L 500.2900, L100.0200 #### [facility] [address] [place], [address] Bilirubin.direct [Mass/Vol] 0.12 mg/dL Normal 0.00-0.30 [facility] Comment on above: Result Comment: AMENDED REPORT 03/13/241558 D BILI previously reported as: 0.09 mg/dL Performed By: #### L 500.2900, L100.0200 #### [facility] [address] [place], [address] BUN/CRE 16.9 RATIO Normal 10-20 [facility] Comment on above: Result Comment: AMENDED REPORT 03/13/241558 BUN/CRE previously reported as: 12.5 RATIO Performed By: #### L 500.2900, L100.0200 #### [facility] [address] [place], [address] CA,Total 9.5 mg/dL Normal 8.5-10.1 [facility] Comment on above: Result Comment: AMENDED REPORT 03/13/241558 CA previously reported as: 10.8 H mg/dL Performed By: #### L 500.2900, L100.0200 #### [facility] [address] [place], [address] Chloride [Moles/Vol] 104 mmol/L Normal 98-107 [facility] Comment on above: Result Comment: AMENDED REPORT 03/13/241558 CL previously reported as: 105 mmol/L Performed By: #### L 500.2900, L100.0200 #### [facility] [address] [place], [address] CHOL:HDL 3.42 Normal [facility] Comment on above: Result Comment: AMENDED REPORT 03/13/241558 CHOL:HDL previously reported as: 3.50 Performed By: #### L 500.2900, L100.0200 #### [facility] [address] [place], [address] Cholesterol [Mass/Vol] 202 mg/dL High 200 [facility] Comment on above: Result Comment: <200 mg/dL Desirable 200-240 mg/dL Borderline >240 mg/dL High Risk AMENDED REPORT 03/13/241558 CHOL previously reported as: 170 mg/dL Performed By: #### L 500.2900, L100.0200 #### [facility] [address] [place], [address] Cholesterol in HDL [Mass/Vol] 59 mg/dL Normal [facility] Comment on above: Result Comment: The drugs N-Acetylcysteine and Metamizole may falsely depress this assay. Reference Range HDL <40 mg/dL Low HDL Cholesterol HDL >or= 60 mg/dL High HDL Cholesterol AMENDED REPORT 03/13/241558 HDL previously reported as: 48 mg/dL The drugs N-Acetylcysteine and Metamizole may falsely depress this assay. Performed By: #### L 500.2900, L100.0200 #### [facility] [address] [place], [address] Cholesterol in LDL [Mass/Vol] 110 mg/dL Normal 0-130 [facility] Comment on above: Result Comment: AMENDED REPORT 03/13/241558 LDL previously reported as: 104 mg/dL Performed By: #### L 500.2900, L100.0200 #### [facility] [address] [place], [address] Cholesterol in VLDL [Mass/Vol] 33 mg/dL Normal 5-40 [facility] Comment on above: Result Comment: AMENDED REPORT 03/13/241558 VLDL previously reported as: 18 mg/dL Performed By: #### L 500.2900, L100.0200 #### [facility] [address] [place], [address] CO2 [Moles/Vol] 25.0 mmol/L Normal 21.0-32.0 [facility] Comment on above: Result Comment: AMENDED REPORT 03/13/241558 CO2 previously reported as: 28.0 mmol/L Performed By: #### L 500.2900, L100.0200 #### [facility] [address] [place], [address] Creatinine [Mass/Vol] 0.77 mg/dL Normal 0.55-1.02 [facility] Comment on above: Result Comment: The validity of the calculated GFR GFRAA in patients over 70 years has not been determined. Clinical correlation is essential. The validity of the calculated GFR GFRAA in patients over 70 years has not been determined. Clinical correlation is essential. AMENDED REPORT 03/13/241558 CREAT,SERUM previously reported as: 0.96 mg/dL The validity of the calculated GFR GFRAA in patients over 70 years has not been determined. Clinical correlation is essential. Performed By: #### L 500.2900, L100.0200 #### [facility] [address] [place], [address] EST GFR - AA 105 mL/min Normal >60 [facility] Comment on above: Result Comment: Afri can [place] GFR Calc Performed By: #### L 500.2900, L100.0200 #### [facility] [address] [place], [address] GAP 7 Normal 5-15 [facility] Comment on above: Result Comment: AMENDED REPORT 03/13/241558 GAP previously reported as: 5 Performed By: #### L 500.2900, L100.0200 #### [facility] [address] [place], [address] GFR/1.73 sq M.predicted among non-blacks MDRD (S/P/Bld) [Vol rate/Area] 87 mL/min/{1.73_m2} Normal >60 [facility] Comment on above: Result Comment: Non- GFR Calc Performed By: #### L 500.2900, L100.0200 #### [facility] [address] [place], [address] Globulin (S) [Mass/Vol] 4.2 g/dL Normal 2.2-4.2 [facility] Comment on above: Result Comment: AMENDED REPORT 03/13/241558 GLOB previously reported as: 4.0 g/dL Performed By: #### L 500.2900, L100.0200 #### [facility] [address] [place], [address] Glucose [Mass/Vol] 130 mg/dL High 74-106 [facility] Comment on above: Result Comment: Fast ing Glucose result greater than or equal to 126 mg/dL suggests DIABETES MELLITUS per A.D.A. criteria. AMENDED REPORT 03/13/241558 GLU previously reported as: 93 mg/dL Performed By: #### L 500.2900, L100.0200 #### [facility] [address] [place], [address] Phosphate [Mass/Vol] 3.1 mg/dL Normal 2.5-4.9 [facility] Comment on above: Result Comment: AMENDED REPORT 03/13/241558 PHOS previously reported as: 4.0 mg/dL Performed By: #### L 500.2900, L100.0200 #### [facility] [address] [place], [address] Potassium [Moles/Vol] 3.8 mmol/L Normal 3.5-5.1 [facility] Comment on above: Result Comment: AMENDED REPORT 03/13/241558 K previously reported as: 4.1 mmol/L Performed By: #### L 500.2900, L100.0200 #### [facility] [address] [place], [address] Sodium [Moles/Vol] 136 mmol/L Normal 136-145 [facility] Comment on above: Result Comment: AMENDED REPORT 03/13/241558 NA previously reported as: 138 mmol/L Performed By: #### L 500.2900, L100.0200 #### [facility] [address] [place], [address] T PROT 8.2 g/dL Normal 6.4-8.2 [facility] Comment on above: Result Comment: AMENDED REPORT 03/13/241558 T PROT previously reported as: 7.6 g/dL Performed By: #### L 500.2900, L100.0200 #### [facility] [address] [place], [address] Triglyceride [Mass/Vol] 164 mg/dL Normal [facility] Comment on above: Result Comment: The [...] Performed By: #### L 500.2900, L100.0200 #### [facility] [address] [place], [address] Urea nitrogen [Mass/Vol] 13 mg/dL Normal 7-18 [facility] Comment on above: Result Comment: AMENDED REPORT 03/13/24 1558 BUN previously reported as: 12 mg/dL Performed By: #### L 500.2900, L100.0200 #### [facility] [address] [place], [address] URIC 2.3 mg/dL Low 2.6-6.0 [facility] Comment on above: Result Comment: The drugs N-Acetylcysteine and Metamizole may falsely depress this assay. AMENDED REPORT 03/13/24 1555 URIC previously reported as: 4.7 mg/dL The drugs N-Acetylcysteine and Metamizole may falsely depress this assay. Performed By: #### L 500.2900, L100.0200 #### [facility] [address] [place], [address] Office Visit Reporton 2023 Office Visit Report [facility] [address] [place] [address] OFFICE VISIT Date of Service: 01/23/24 MR#: [id number] Acct: [id number] Patient: FRIDA WIN Rep #: [id number] : 1980 Provider: MARTHA Arnold Age/Sex: 43/F Location[place] [facility] Status: Signed Employer Purchased Covid Test Note: Patient here today for Covid Testing, requested by their Employer. Assessment and Plan Assessment and Plan Orders: Orders POC Cepheid Covid, FluAB, RSV 01/23/24 Plan Details Goals Barriers: Goals Decrease spasm Improve alignment Decrease pain 01/28/24 0628 Date Kevin Wilder Signature: Date (if applicable) CC: Normal [facility] Office Visit Reporton 2023 Office Visit Report [facility] [address] [place] [address] OFFICE VISIT Date of Service: 01/23/24 MR#: [id number] Acct: [id number] Patient: FRIDA WIN Rep #: [id number] : 1980 Provider: MARTHA Arnold Age/Sex: 43/F Location[place] [facility] Status: Signed Employer Purchased Covid Test Note: Patient here today for Covid Testing, requested by their Employer. Assessment and Plan Assessment and Plan Orders: Orders POC Cepheid Covid, FluAB, RSV Today Plan Details Goals Barriers: Goals Decrease spasm Improve alignment Decrease pain 01/23/24 0747 Date Kevin Wilder Signature: Date (if applicable) CC: Normal [facility] Urgent Care Visit Reporton 0 01-23-2024 Urgent Care Visit Report [facility] [address], [address] [place] [address] OFFICE VISIT Date of Service: 01/23/24 MR#: [id number] Acct: [id number] Name: FRIDA WIN Rep #: [id number] : 1980 Provider: MARTHA Arnold Age/Sex: 43/F Location: [facility] Status: Signed with Addenda ADDENDUM by MARTHA Arnold on 01/23/24 at 0836 HPI Details: REVISED ASSESSMENT/PLAN ASESSMENT: (1) COVID-19 PLAN: See POC results. Supportive measures as instructed today. Patient declined prescriptions for corticosteroid and cough suppressant upon offering. Patient aware of isolation recommendations and [facility] department notification. Follow-up with PCP in 5 to 7 days should symptoms not improve, ED sooner should symptoms only worsen or any other concerns develop. Patient states acknowledging understanding all the above. This note was generated with Cortona[employer] software. It may contain incorrect words, spelling, [...] the above. This note was generated with KRAFT[employer]ERK software. It may contain incorrect words, spelling, [...] Allergy (Verified 01/23/24 06:54) Shortness of breath PFS Social History Smoking Status: Current every day smoker HPI HPI Chief Complaint: ST Details: FRIDA WNI, is a 43 F who presents to the office today for initial evaluation 1 to 2-day history of mild sore throat and nasal congestion, stating employer requested she be screened for COVID-19 therefore here today for initial evaluation. No complaints of fever, chills, sweats, lightheadedness/dizzine ss, nausea/vomiting, chest pain/shortness of breath/dyspnea on exertion, though does appreciate mild rare cough. No [id number]-[id number] products taken to assist. No close contacts [...] Improve ali (more content not included)... Normal [facility] Absolute lymphocyte counton 06-28-2023 Lymphocytes Auto (Unsp spec) [#/Vol] 2.66 10*3/uL 0.83-4.51 [facility] Basophil percentageon 2023 Basophils/100 WBC (Bld) 0.6 % 0-1 [facility] Bilirubin [Mass/Vol] 0.40 mg/dL 0.20-1.00 [facility] Comment on above: For patients on eltr ombopag therapy, use of Dimension Alpha TBIL is not recommended. Chloride [Moles/Vol] 109 mmol/L 98-107 [facility] Cholesterol [Mass/Vol] 156 mg/dL <200 [facility] Comment on above: <200 mg/dL Desirable 200-240 mg/dL Borderline >240 mg/dL High Risk Eosinophils/100 WBC (Bld) 1.3 % 0-5 [facility] Glucose [Mass/Vol] 110 mg/dL 74-106 [facility] Comment on above: Fasting Glucose resu lt from 100 to 125 mg/dL suggests IMPAIRED HOMEOSTASIS per A.D.A. criteria. Neutrophils (Bld) [#/Vol] 7.4 10*3/uL 2.0-7.7 [facility] Neutrophils/100 WBC (Bld) 68.0 % 47-70 [facility] Potassium [Moles/Vol] 4.0 mmol/L 3.5-5.1 [facility] Protein [Mass/Vol] 7.6 g/dL 6.4-8.2 [facility] Sodium [Moles/Vol] 137 mmol/L 136-145 [facility] Triglyceride [Mass/Vol] 72 mg/dL <199 [facility] Comment on above: The drugs N-Acetylcy steine and Metamizole may falsely depress this assay.Serum Triglycerides Reference Interval Normal <150 mg/dL Borderline high 150 - 199 mg/dL High 200 - 499 mg/dL Very High > or = 500 mg/dL WBC (Bld) [#/Vol] 10.9 10*3/uL 4.4-11.0 [facility] Blood erythrocytes count (nu mber/volume)on 06-28-2023 RBC (Bld) [#/Vol] 5.83 10*6/uL 4.2-5.4 [facility] Blood hemoglobin measurement (mass/volume)on 06-28-2023 Hemoglobin (Bld) [Mass/Vol] 15.5 g/dL 12.0-15.0 [facility] Blood lymphocytes/100 leukoc yteson 06-28-2023 Lymphocytes/100 WBC (Bld) 24.5 % 19-41 [facility] Blood monocytes/100 leukocyt eson 06-28-2023 Monocytes/100 WBC (Bld) 5.0 % 0-10 [facility] Blood platelet mean volumeon 06-28-2023 Platelet mean volume (Bld) [Entitic vol] 10.1 fL 6.2-12.0 [facility] Determination of erythrocyte mean corpuscular volume (MCV)on 06-28-2023 MCV (RBC) [Entitic vol] 82.3 fL 81-99 [facility] Folic acid serumon Folate [Mass/Vol] 17.80 ng/mL 3.1-55.4 [facility] Hematocrit Auto (Bld) [Volum e fraction]on 06-28-2023 Hematocrit (Bld) [Volume fraction] 48.0 % 37-47 [facility] Iron measurement (mass/mass) on 06-28-2023 Iron (Unsp spec) [Mass/Mass] 39 ug/dL 50-170 [facility] - Chemistry and C hemistry - challengeon 06-28-2023 ALP [Catalytic activity/Vol] 80 U/L 45-117 [facility] ALT [Catalytic activity/Vol] 20 U/L 13-56 [facility] CO2 [Moles/Vol] 22.0 mmol/L 21.0-32.0 [facility] Cobalamin (Vitamin B12) [Mass/Vol] 382 pg/mL 211-911 [facility] Free T4 [Mass/Vol] 1.10 ng/dL 0.76-1.46 [facility] Globulin (S) [Mass/Vol] 3.9 g/dL 2.2-4.2 [facility] Urea nitrogen/Creatinine [Mass ratio] 12.0 mg/mg 10-20 [facility] - Hematology and Cell countson 06-28-2023 Erythrocyte distribution width (RBC) [Entitic vol] 46.8 fL 35.1-43.9 [facility] Erythrocyte distribution width (RBC) [Ratio] 15.9 % 11.6-14.6 [facility] Immature granulocytes/100 WBC (Bld) 0.600 % 0.0-0.9 [facility] Comment on above: IG% - Immature Granu locytes (promyelocytes, myelocytes and metamyelocytes) > 1% indicates that a LEFT SHIFT is Present. MCH (RBC) [Entitic mass] 26.6 pg 27.0-32.0 [facility] Nucleated RBC/100 WBC (Bld) [Ratio] 0 % 0-5 [facility] MCHC Auto (RBC) [Mass/Vol]on 06-28-2023 MCHC (RBC) [Mass/Vol] 32.3 g/dL 32-36 [facility] No Panel Informationon 06-28 Estimated GFR (MDRD) Amer 109 mL/min >60 [facility] Comment on above: GFR Calc Estimated GFR (MDRD) Non-Af Amer 90 mL/min >60 [facility] Comment on above: Non- GFR Calc Thyroid Stimulating Hormone (TSH) 1.28 uIU/mL 0.358-3.74 [facility] Total Iron Binding Capacity 348 ug/dL 250-450 [facility] Vitamin D 25-Hydroxy 61.3 ng/mL [facility] Comment on above: Vitamin D 25(OH) Sta tus Range Deficiency <20 ng/mL (50nmol/L) Insufficiency 20 - 30 ng/mL (50 - 75 nmol/L) Sufficiency 30 - 100 ng/mL (75 - 250 nmol/L) Toxicity >100 ng/mL (>250 nmol/L) Platelets bldon 06-28-2023 Platelets (Bld) [#/Vol] 373 10*3/uL 150-450 [facility] Serum or plasma albumin emanuel urement (mass/volume)on 06-28-2023 Albumin [Mass/Vol] 3.7 g/dL 3.2-5.0 [facility] Serum or plasma albumin/glob ulin mass ratioon 06-28-2023 Albumin/Globulin [Mass ratio] 0.9 {ratio} 0.9-2.4 [facility] Serum or plasma calcium emanuel urement (mass/volume)on 06-28-2023 Calcium [Mass/Vol] 9.3 mg/dL 8.5-10.1 [facility] Serum or plasma cholesterol in HDL measurement (mass/volume)on 06-28-2023 Cholesterol in HDL [Mass/Vol] 47 mg/dL >40 [facility] Comment on above: The drugs N-Acetylcy steine and Metamizole may falsely depress this assay. Reference Range HDL <40 mg/dL Low HDL Cholesterol HDL >or= 60 mg/dL High HDL Cholesterol Serum or plasma cholesterol in VLDL measurement (mass/volume)on 06-28-2023 Cholesterol in VLDL [Mass/Vol] 14 mg/dL 5-40 [facility] Serum or plasma creatinine m easurement (mass/volume)on 06-28-2023 Creatinine [Mass/Vol] 0.75 mg/dL 0.55-1.02 [facility] Comment on above: The validity of the calculated GFR & GFRAA in patients over 70 years has not been determined. Clinical correlation is essential. Serum or plasma ferritin breanne surement (mass/volume)on 06-28-2023 Ferritin [Mass/Vol] 193 ng/mL 8-252 [facility] Serum or plasma iron saturat ion measurement (mass fraction)on 06-28-2023 Iron saturation [Mass fraction] 11.2 % 15.0-55.0 [facility] Serum or plasma low density lipoprotein (LDL) cholesterol measurement (mass/volume)on 06-28-2023 Cholesterol in LDL [Mass/Vol] 95 mg/dL 0-130 [facility] Serum or plasma urea nitroge n measurement (mass/volume)on 06-28-2023 Urea nitrogen [Mass/Vol] 9 mg/dL 7-18 [facility] Thin prep Papanicolaou smear with manual screeningon 06-28-2023 Thin prep Papanicolaou smear with manual screening 11 U/L 15-37 [facility] Thin prep Papanicolaou smear with manual screening 6 5-15 [facility] Whole blood hemoglobin A1c/t otal hemoglobin ratio (mass fraction)on 06-28-2023 HbA1c (Bld) [Mass fraction] 5.5 % 3.8-5.6 [facility] Comment on above: Normal < 5.7 % Predi abetic 5.7 - 6.4 % Diabetic >or= 6.5 % Please note range changes. COVID-19 virus antigen assay Ordered By: Karlo Good on 03-21-2023 SARS-CoV-2 (COVID-19) Ag IA.rapid Ql (Resp) [facility] SARS-CoV-2 (COVID-19) Ag IA.rapid Ql (Resp) [facility] Absolute lymphocyte countOrd ered By: HEALTH ASSESSMENT on 03-05-2023 Lymphocytes Auto (Unsp spec) [#/Vol] 2.42 10*3/uL 0.83-4.51 [facility] Absolute reticulocyte countO rdered By: HEALTH ASSESSMENT on 03-05-2023 Reticulocytes (Bld) [#/Vol] 0.00 10*3/uL 0-5 [facility] Basophil percentageOrdered B y: HEALTH ASSESSMENT on 03-05-2023 Basophil percentage 1.9 mg/dL 2.5-4.9 [facility] Bilirubin [Mass/Vol] 0.20 mg/dL 0.20-1.00 [facility] Comment on above: For patients on eltr ombopag therapy, use of Dimension Alpha TBIL is not recommended. Chloride [Moles/Vol] 110 mmol/L 98-107 [facility] Cholesterol [Mass/Vol] 157 mg/dL <200 [facility] Comment on above: <200 mg/dL Desirable 200-240 mg/dL Borderline >240 mg/dL High Risk Glucose [Mass/Vol] 96 mg/dL 74-106 [facility] LDH [Catalytic activity/Vol] 169 U/L 84-246 [facility] Neutrophils (Bld) [#/Vol] 6.6 10*3/uL 2.0-7.7 [facility] Potassium [Moles/Vol] 4.0 mmol/L 3.5-5.1 [facility] Protein [Mass/Vol] 7.6 g/dL 6.4-8.2 [facility] Sodium [Moles/Vol] 138 mmol/L 136-145 [facility] Triglyceride [Mass/Vol] 88 mg/dL <199 [facility] Comment on above: The drugs N-Acetylcy steine and Metamizole may falsely depress this assay.Serum Triglycerides Reference Interval Normal <150 mg/dL Borderline high 150 - 199 mg/dL High 200 - 499 mg/dL Very High > or = 500 mg/dL WBC (Bld) [#/Vol] 9.8 10*3/uL 4.4-11.0 [facility] Blood erythrocytes count (nu mber/volume)Ordered By: HEALTH ASSESSMENT on 03-05-2023 RBC (Bld) [#/Vol] 5.67 10*6/uL 4.2-5.4 [facility] Blood hemoglobin measurement (mass/volume)Ordered By: HEALTH ASSESSMENT on 03-05-2023 Hemoglobin (Bld) [Mass/Vol] 14.9 g/dL 12.0-15.0 [facility] Blood platelet mean volumeOr dered By: HEALTH ASSESSMENT on 03-05-2023 Platelet mean volume (Bld) [Entitic vol] 10.4 fL 6.2-12.0 [facility] COVID-19 virus antigen assay Ordered By: Karlo Good on 03-05-2023 SARS-CoV-2 (COVID-19) Ag IA.rapid Ql (Resp) [facility] SARS-CoV-2 (COVID-19) Ag IA.rapid Ql (Resp) [facility] Determination of erythrocyte mean corpuscular volume (MCV)Ordered By: HEALTH ASSESSMENT on 03-05-2023 MCV (RBC) [Entitic vol] 83.4 fL 81-99 [facility] Direct bilirubinOrdered By: HEALTH ASSESSMENT on 03-05-2023 Bilirubin.direct [Mass/Vol] 0.11 mg/dL 0.00-0.30 [facility] Hematocrit Auto (Bld) [Volum e fraction]Ordered By: HEALTH ASSESSMENT on 03-05-2023 Hematocrit (Bld) [Volume fraction] 47.3 % 37-47 [facility] Laboratory - Chemistry and C hemistry - challengeOrdered By: HEALTH ASSESSMENT on 03-05-2023 ALP [Catalytic activity/Vol] 89 U/L 45-117 [facility] ALT [Catalytic activity/Vol] 22 U/L 13-56 [facility] Cholesterol.total/Karlie sterol in HDL [Mass ratio] 3.70 {ratio} [facility] CO2 [Moles/Vol] 26.0 mmol/L 21.0-32.0 [facility] Globulin (S) [Mass/Vol] 4.0 g/dL 2.2-4.2 [facility] Urea nitrogen/Creatinine [Mass ratio] 11.4 mg/mg 10-20 [facility] Laboratory - Hematology and Cell countsOrdered By: HEALTH ASSESSMENT on 03-05-2023 Erythrocyte distribution width (RBC) [Entitic vol] 47.1 fL 35.1-43.9 [facility] Erythrocyte distribution width (RBC) [Ratio] 15.7 % 11.6-14.6 [facility] MCH (RBC) [Entitic mass] 26.3 pg 27.0-32.0 [facility] Nucleated RBC/100 WBC (Bld) [Ratio] 0 % 0-5 [facility] MCHC Auto (RBC) [Mass/Vol]Or dered By: HEALTH ASSESSMENT on 03-05-2023 MCHC (RBC) [Mass/Vol] 31.5 g/dL 32-36 [facility] No Panel InformationOrdered By: HEALTH ASSESSMENT on 03-05-2023 Estimated GFR (MDRD) Amer 103 mL/min >60 [facility] Comment on above: GFR Calc Estimated GFR (MDRD) Non-Af Amer 85 mL/min >60 [facility] Comment on above: Non- GFR Calc Platelets bldOrdered By: [facility] ASSESSMENT on 03-05-2023 Platelets (Bld) [#/Vol] 384 10*3/uL 150-450 [facility] Segmented neutrophils/100 WB C Auto (Bld)Ordered By: HEALTH ASSESSMENT on 03-05-2023 Segmented neutrophils/100 WBC (Bld) 67.7 % 47-70 [facility] Serum or plasma albumin emanuel urement (mass/volume)Ordered By: HEALTH ASSESSMENT on 03-05-2023 Albumin [Mass/Vol] 3.6 g/dL 3.2-5.0 [facility] Serum or plasma albumin/glob ulin mass ratioOrdered By: HEALTH ASSESSMENT on 03-05-2023 Albumin/Globulin [Mass ratio] 0.9 {ratio} 0.9-2.4 [facility] Serum or plasma calcium emanuel urement (mass/volume)Ordered By: HEALTH ASSESSMENT on 03-05-2023 Calcium [Mass/Vol] 8.8 mg/dL 8.5-10.1 [facility] Serum or plasma cholesterol in HDL measurement (mass/volume)Ordered By: HEALTH ASSESSMENT on 03-05-2023 Cholesterol in HDL [Mass/Vol] 43 mg/dL >40 [facility] Comment on above: The drugs N-Acetylcy steine and Metamizole may falsely depress this assay. Reference Range HDL <40 mg/dL Low HDL Cholesterol HDL >or= 60 mg/dL High HDL Cholesterol Serum or plasma cholesterol in VLDL measurement (mass/volume)Ordered By: HEALTH ASSESSMENT on 03-05-2023 Cholesterol in VLDL [Mass/Vol] 18 mg/dL 5-40 [facility] Serum or plasma creatinine m easurement (mass/volume)Ordered By: HEALTH ASSESSMENT on 03-05-2023 Creatinine [Mass/Vol] 0.79 mg/dL 0.55-1.02 [facility] Comment on above: The validity of the calculated GFR & GFRAA in patients over 70 years has not been determined. Clinical correlation is essential. Serum or plasma low density lipoprotein (LDL) cholesterol measurement (mass/volume)Ordered By: HEALTH ASSESSMENT on 03-05-2023 Cholesterol in LDL [Mass/Vol] 96 mg/dL 0-130 [facility] Serum or plasma urea nitroge n measurement (mass/volume)Ordered By: HEALTH ASSESSMENT on 03-05-2023 Urea nitrogen [Mass/Vol] 9 mg/dL 7-18 [facility] Serum or plasma uric acid me asurement (mass/volume)Ordered By: HEALTH ASSESSMENT on 03-05-2023 Urate [Mass/Vol] 4.1 mg/dL 2.6-6.0 [facility] Comment on above: The drugs N-Acetylcy steine and Metamizole may falsely depress this assay. Thin prep Papanicolaou smear with manual screeningOrdered By: HEALTH ASSESSMENT on 03-05-2023 Thin prep Papanicolaou smear with manual screening 13 U/L 15-37 [facility] Thin prep Papanicolaou smear with manual screening 2 5-15 [facility] Absolute lymphocyte counton 08-08-2022 Lymphocytes Auto (Unsp spec) [#/Vol] 2.69 10*3/uL 0.83-4.51 [facility] Basophil percentageon 2022 Basophils/100 WBC (Bld) 0.7 % 0-1 [facility] Bilirubin [Mass/Vol] 0.30 mg/dL 0.20-1.00 [facility] Comment on above: For patients on eltr ombopag therapy, use of Dimension Alpha TBIL is not recommended. Chloride [Moles/Vol] 109 mmol/L 98-107 [facility] Cholesterol [Mass/Vol] 162 mg/dL <200 [facility] Comment on above: <200 mg/dL Desirable 200-240 mg/dL Borderline >240 mg/dL High Risk Eosinophils/100 WBC (Bld) 1.7 % 0-5 [facility] Glucose [Mass/Vol] 80 mg/dL 74-106 [facility] Neutrophils (Bld) [#/Vol] 5.7 10*3/uL 2.0-7.7 [facility] Neutrophils/100 WBC (Bld) 62.4 % 47-70 [facility] Potassium [Moles/Vol] 4.0 mmol/L 3.5-5.1 [facility] Protein [Mass/Vol] 7.7 g/dL 6.4-8.2 [facility] Sodium [Moles/Vol] 138 mmol/L 136-145 [facility] Triglyceride [Mass/Vol] 115 mg/dL <199 [facility] Comment on above: The drugs N-Acetylcy steine and Metamizole may falsely depress this assay.Serum Triglycerides Reference Interval Normal <150 mg/dL Borderline high 150 - 199 mg/dL High 200 - 499 mg/dL Very High > or = 500 mg/dL WBC (Bld) [#/Vol] 9.2 10*3/uL 4.4-11.0 [facility] Blood erythrocytes count (nu mber/volume)on 08-08-2022 RBC (Bld) [#/Vol] 5.64 10*6/uL 4.2-5.4 [facility] Blood hemoglobin measurement (mass/volume)on 08-08-2022 Hemoglobin (Bld) [Mass/Vol] 15.2 g/dL 12.0-15.0 [facility] Blood lymphocytes/100 leukoc yteson 08-08-2022 Lymphocytes/100 WBC (Bld) 29.2 % 19-41 [facility] Blood monocytes/100 leukocyt eson 08-08-2022 Monocytes/100 WBC (Bld) 5.6 % 0-10 [facility] Blood platelet mean volumeon 08-08-2022 Platelet mean volume (Bld) [Entitic vol] 9.8 fL 6.2-12.0 [facility] Determination of erythrocyte mean corpuscular volume (MCV)on 08-08-2022 MCV (RBC) [Entitic vol] 82.8 fL 81-99 [facility] Hematocrit Auto (Bld) [Volum e fraction]on 08-08-2022 Hematocrit (Bld) [Volume fraction] 46.7 % 37-47 [facility] Iron measurement (mass/mass) on 08-08-2022 Iron (Unsp spec) [Mass/Mass] 41 ug/dL 50-170 [facility] Laboratory - Chemistry and C hemistry - challengeon 08-08-2022 ALP [Catalytic activity/Vol] 94 U/L 45-117 [facility] ALT [Catalytic activity/Vol] 24 U/L 13-56 [facility] CO2 [Moles/Vol] 25.0 mmol/L 21.0-32.0 [facility] Free T4 [Mass/Vol] 1.00 ng/dL 0.76-1.46 [facility] Globulin (S) [Mass/Vol] 4.2 g/dL 2.2-4.2 [facility] Urea nitrogen/Creatinine [Mass ratio] 12.4 mg/mg 10-20 [facility] Laboratory - Hematology and Cell countson 08-08-2022 Erythrocyte distribution width (RBC) [Entitic vol] 45.9 fL 35.1-43.9 [facility] Erythrocyte distribution width (RBC) [Ratio] 15.1 % 11.6-14.6 [facility] Immature granulocytes/100 WBC (Bld) 0.400 % 0.0-0.9 [facility] Comment on above: IG% - Immature Granu locytes (promyelocytes, myelocytes and metamyelocytes) > 1% indicates that a LEFT SHIFT is Present. MCH (RBC) [Entitic mass] 27.0 pg 27.0-32.0 [facility] Nucleated RBC/100 WBC (Bld) [Ratio] 0 % 0-5 [facility] MCHC Auto (RBC) [Mass/Vol]on 08-08-2022 MCHC (RBC) [Mass/Vol] 32.5 g/dL 32-36 [facility] No Panel Informationon 08-08 Estimated GFR (MDRD) Amer 90 mL/min >60 [facility] Comment on above: GFR Calc Estimated GFR (MDRD) Non-Af Amer 75 mL/min >60 [facility] Comment on above: Non- GFR Calc Thyroid Stimulating Hormone (TSH) 1.42 uIU/mL 0.358-3.74 [facility] Total Iron Binding Capacity 253 ug/dL 250-450 [facility] Vitamin D 25-Hydroxy 28.2 ng/mL [facility] Comment on above: Vitamin D 25(OH) Sta tus Range Deficiency <20 ng/mL (50nmol/L) Insufficiency 20 - 30 ng/mL (50 - 75 nmol/L) Sufficiency 30 - 100 ng/mL (75 - 250 nmol/L) Toxicity >100 ng/mL (>250 nmol/L) Platelets bldon 08-08-2022 Platelets (Bld) [#/Vol] 358 10*3/uL 150-450 [facility] Serum or plasma albumin emanuel urement (mass/volume)on 08-08-2022 Albumin [Mass/Vol] 3.5 g/dL 3.2-5.0 [facility] Serum or plasma albumin/glob ulin mass ratioon 08-08-2022 Albumin/Globulin [Mass ratio] 0.8 {ratio} 0.9-2.4 [facility] Serum or plasma calcium emanuel urement (mass/volume)on 08-08-2022 Calcium [Mass/Vol] 9.7 mg/dL 8.5-10.1 [facility] Serum or plasma cholesterol in HDL measurement (mass/volume)on 08-08-2022 Cholesterol in HDL [Mass/Vol] 48 mg/dL >40 [facility] Comment on above: The drugs N-Acetylcy steine and Metamizole may falsely depress this assay. Reference Range HDL <40 mg/dL Low HDL Cholesterol HDL >or= 60 mg/dL High HDL Cholesterol Serum or plasma cholesterol in VLDL measurement (mass/volume)on 08-08-2022 Cholesterol in VLDL [Mass/Vol] 23 mg/dL 5-40 [facility] Serum or plasma creatinine m easurement (mass/volume)on 08-08-2022 Creatinine [Mass/Vol] 0.89 mg/dL 0.55-1.02 [facility] Comment on above: The validity of the calculated GFR & GFRAA in patients over 70 years has not been determined. Clinical correlation is essential. Serum or plasma ferritin breanne surement (mass/volume)on 08-08-2022 Ferritin [Mass/Vol] 212 ng/mL 8-252 [facility] Serum or plasma iron saturat ion measurement (mass fraction)on 08-08-2022 Iron saturation [Mass fraction] 16.2 % 15.0-55.0 [facility] Serum or plasma low density lipoprotein (LDL) cholesterol measurement (mass/volume)on 08-08-2022 Cholesterol in LDL [Mass/Vol] 91 mg/dL 0-130 [facility] Serum or plasma urea nitroge n measurement (mass/volume)on 08-08-2022 Urea nitrogen [Mass/Vol] 11 mg/dL 7-18 [facility] Thin prep Papanicolaou smear with manual screeningon 08-08-2022 Thin prep Papanicolaou smear with manual screening 18 U/L 15-37 [facility] Thin prep Papanicolaou smear with manual screening 4 5-15 [facility] COVID-19 virus antigen assay Ordered By: Dr. Good on 06-29-2022 SARS-CoV-2 (COVID-19) Ag IA.rapid Ql (Resp) [facility] No Panel Informationon 08-15 SARS-CoV-2 Antigen (Rapid) [facility] Work Phone: Provider Note - ED [...] VITAL SIGNS: T PRBP SpO2O2(LPM) %FiO2 Method 03-Aug-2021 13:12:[id number] [facility] MDM/ED COURSE: 1) Left Acute SIJ dysfunction: [...] vital signs PROGRESS NOTE Procedure performed by: nh Insurance Application Investigator(s): (Conchita Genao, NUTRITIONAL ASSISTANT-S) Findings: grossly normal anatomy Specimen: no Estimated [...] Updated: 03-Aug-2021 14:29 by Deonte Dsouza (PAC) [facility] No Panel Informationon 07-14 SARS-CoV-2 Antigen (Rapid) [facility] Work Phone: Absolute lymphocyte counton 07-01-2021 Lymphocytes Auto (Unsp spec) [#/Vol] 2.53 10*3/uL 0.83-4.51 [facility] Work Phone: Basophil percentageon 2021 Basophils/100 WBC (Bld) 0.6 % 0-1 [facility] Work Phone: Bilirubin [Mass/Vol] 0.30 mg/dL 0.20-1.00 [facility] Work Phone: Comment on above: For patients on eltr ombopag therapy, use of Dimension Alpha TBIL is not recommended. Chloride [Moles/Vol] 103 mmol/L 98-107 [facility] Work Phone: Cholesterol [Mass/Vol] 154 mg/dL <200 [facility] Work Phone: Comment on above: <200 mg/dL Desirable 200-240 mg/dL Borderline >240 mg/dL High Risk Eosinophils/100 WBC (Bld) 1.2 % 0-5 [facility] Work Phone: Glucose [Mass/Vol] 103 mg/dL 74-106 [facility] Work Phone: Comment on above: Fasting Glucose resu lt from 100 to 125 mg/dL suggests IMPAIRED HOMEOSTASIS per A.D.A. criteria. Neutrophils (Bld) [#/Vol] 7.7 10*3/uL 2.0-7.7 [facility] Work Phone: Neutrophils/100 WBC (Bld) 68.8 % 47-70 [facility] Work Phone: Potassium [Moles/Vol] 4.0 mmol/L 3.5-5.1 [facility] Work Phone: Protein [Mass/Vol] 8.1 g/dL 6.4-8.2 [facility] Work Phone: Sodium [Moles/Vol] 136 mmol/L 136-145 [facility] Work Phone: Triglyceride [Mass/Vol] 86 mg/dL [facility] Work Phone: Comment on above: The drugs N-Acetylcy steine and Metamizole may falsely depress this assay.Serum Triglycerides Reference Interval Normal <150 mg/dL Borderline high 150 - 199 mg/dL High 200 - 499 mg/dL Very High > or = 500 mg/dL WBC (Bld) [#/Vol] 11.2 10*3/uL 4.4-11.0 [facility] Work Phone: Blood erythrocytes count (nu mber/volume)on 07-01-2021 RBC (Bld) [#/Vol] 5.70 10*6/uL 4.2-5.4 [facility] Work Phone: Blood hemoglobin measurement (mass/volume)on 07-01-2021 Hemoglobin (Bld) [Mass/Vol] 15.0 g/dL 12.0-15.0 [facility] Work Phone: Blood lymphocytes/100 leukoc yteson 07-01-2021 Lymphocytes/100 WBC (Bld) 22.7 % 19-41 [facility] Work Phone: [phone] Blood monocytes/100 leukocyt eson 07-01-2021 Monocytes/100 WBC (Bld) 6.3 % 0-10 [facility] Work Phone: [phone] Blood platelet mean volumeon 07-01-2021 Platelet mean volume (Bld) [Entitic vol] 9.9 fL 6.2-12.0 [facility] Work Phone: Determination of erythrocyte mean corpuscular volume (MCV)on 07-01-2021 MCV (RBC) [Entitic vol] 81.1 fL 81-99 [facility] Work Phone: [phone] Hematocrit Auto (Bld) [Volum e fraction]on 07-01-2021 Hematocrit (Bld) [Volume fraction] 46.2 % 37-47 [facility] Work Phone: [phone] Iron measurement (mass/mass) on 07-01-2021 Iron (Unsp spec) [Mass/Mass] 29 ug/dL 50-170 [facility] Work Phone: [phone] Laboratory - Chemistry and C hemistry - challengeon 07-01-2021 ALP [Catalytic activity/Vol] 85 U/L 45-117 [facility] Work Phone: [phone] ALT [Catalytic activity/Vol] 29 U/L 13-56 [facility] Work Phone: [phone] CO2 [Moles/Vol] 29.0 mmol/L 21.0-32.0 [facility] Work Phone: [phone] Cobalamin (Vitamin B12) [Mass/Vol] 388 pg/mL 211-911 [facility] Work Phone: [phone] Free T4 [Mass/Vol] 1.29 ng/dL 0.76-1.46 [facility] Phone: [phone] Globulin (S) [Mass/Vol] 4.1 g/dL 2.2-4.2 [facility] Work Phone: [phone] Urea nitrogen/Creatinine [Mass ratio] 19.4 mg/mg 10-20 [facility] Work Phone: [phone] Laboratory - Hematology and Cell countson 07-01-2021 Erythrocyte distribution width (RBC) [Entitic vol] 42.8 fL 35.1-43.9 [facility] Work Phone: [phone] Erythrocyte distribution width (RBC) [Ratio] 14.7 % 11.6-14.6 [facility] Work Phone: [phone] Immature granulocytes/100 WBC (Bld) 0.400 % 0.0-0.9 [facility] Work Phone: [phone] Comment on above: IG% - Immature Granu locytes (promyelocytes, myelocytes and metamyelocytes) > 1% indicates that a LEFT SHIFT is Present. MCH (RBC) [Entitic mass] 26.3 pg 27.0-32.0 [facility] Work Phone: [phone] Nucleated RBC/100 WBC (Bld) [Ratio] 0 % 0-5 [facility] Work Phone: [phone] MCHC Auto (RBC) [Mass/Vol]on 07-01-2021 MCHC (RBC) [Mass/Vol] 32.5 g/dL 32-36 [facility] Work Phone: No Panel Informationon 07-01 Estimated GFR (MDRD) Amer 115 mL/min >60 [facility] Work Phone: [phone] Comment on above: GFR Calc Estimated GFR (MDRD) Non-Af Amer 95 mL/min >60 [facility] Work Phone: [phone] Comment on above: Non- GFR Calc Thyroid Stimulating Hormone (TSH) 2.66 uIU/mL 0.358-3.74 [facility] Work Phone: Total Iron Binding Capacity 282 ug/dL 250-450 [facility] Work Phone: Vitamin D 25-Hydroxy 23.2 ng/mL [facility] Work Phone: Comment on above: Vitamin D 25(OH) Sta tus Range Deficiency <20 ng/mL (50nmol/L) Insufficiency 20 - 30 ng/mL (50 - 75 nmol/L) Sufficiency 30 - 100 ng/mL (75 - 250 nmol/L) Toxicity >100 ng/mL (>250 nmol/L) Platelets bldon 07-01-2021 Platelets (Bld) [#/Vol] 347 10*3/uL 150-450 [facility] Work Phone: Serum or plasma albumin emanuel urement (mass/volume)on 07-01-2021 Albumin [Mass/Vol] 4.0 g/dL 3.2-5.0 [facility] Work Phone: [phone] Serum or plasma albumin/glob ulin mass ratioon 07-01-2021 Albumin/Globulin [Mass ratio] 1.0 {ratio} 0.9-2.4 [facility] Work Phone: [phone] Serum or plasma calcium emanuel urement (mass/volume)on 07-01-2021 Calcium [Mass/Vol] 9.9 mg/dL 8.5-10.1 [facility] Work Phone: Serum or plasma cholesterol in HDL measurement (mass/volume)on 07-01-2021 Cholesterol in HDL [Mass/Vol] 44 mg/dL [facility] Work Phone: Comment on above: The drugs N-Acetylcy steine and Metamizole may falsely depress this assay. Reference Range HDL <40 mg/dL Low HDL Cholesterol HDL >or= 60 mg/dL High HDL Cholesterol Serum or plasma cholesterol in VLDL measurement (mass/volume)on 07-01-2021 Cholesterol in VLDL [Mass/Vol] 17 mg/dL 5-40 [facility] Work Phone: [phone] Serum or plasma creatinine m easurement (mass/volume)on 07-01-2021 Creatinine [Mass/Vol] 0.72 mg/dL 0.55-1.02 [facility] Work Phone: Comment on above: The validity of the calculated GFR & GFRAA in patients over 70 years has not been determined. Clinical correlation is essential. Serum or plasma ferritin breanne surement (mass/volume)on 07-01-2021 Ferritin [Mass/Vol] 171 ng/mL 8-252 [facility] Work Phone: Serum or plasma iron saturat ion measurement (mass fraction)on 07-01-2021 Iron saturation [Mass fraction] 10.3 % 15.0-55.0 [facility] Work Phone: Serum or plasma low density lipoprotein (LDL) cholesterol measurement (mass/volume)on 07-01-2021 Cholesterol in LDL [Mass/Vol] 93 mg/dL 0-130 [facility] Work Phone: Serum or plasma urea nitroge n measurement (mass/volume)on 07-01-2021 Urea nitrogen [Mass/Vol] 14 mg/dL 7-18 [facility] Work Phone: Thin prep Papanicolaou smear with manual screeningon 07-01-2021 Thin prep Papanicolaou smear with manual screening 12 U/L 15-37 [facility] Work Phone: Thin prep Papanicolaou smear with manual screening 4 5-15 [facility] Work Phone: Laboratory - Microbiology an d Antimicrobial susceptibilityon 06-26-2021 SARS-CoV-2 (COVID-19) RNA CARMITA+probe Ql (Unsp spec) Not detected [facility] Work Phone: SARS coronavirus RNA [Presen ce] in Unspecified specimen by CARMITA with probe detectionon 06-16-2021 SARS-CoV RNA CARMITA+probe Ql (Unsp spec) Not detected Not Detected [facility] Work Phone: Comment on above: This [...] of in vitro diagnostic tests for detection [id number] virus and/or diagnosis of COVID-19 infectionunder section [...] No Panel Informationon 06-14 SARS-CoV-2 Antigen (Rapid) [facility] Work Phone: CBC AND DIFFERENTIALon 11-17 DIFFERENTIAL SEE MANUAL DIFF Normal [facility] Comment on above: Performed By: #### C BCDF #### [address] [address] Erythrocyte distribution width (RBC) [Ratio] 14.6 % High 11.5 - 14.5 [facility] Comment on above: Performed By: #### C BCDF #### [address] [address] Hematocrit (Bld) [Volume fraction] 48.5 % High 36.0 - 46.0 [facility] Comment on above: Performed By: #### C BCDF #### [address] [address] Hemoglobin (Bld) [Mass/Vol] 15.8 g/dL Normal 12.0 - 16.0 [facility] Comment on above: Performed By: #### C BCDF #### [address] [address] MCHC (RBC) [Mass/Vol] 32.6 g/dL Normal 32.0 - 36.0 [facility] Comment on above: Performed By: #### C BCDF #### [address] [address] MCV (RBC) [Entitic vol] 83 fL Normal 80 - 100 [facility] Comment on above: Performed By: #### C BCDF #### [address] [address] NUCLEATED RBC 0.1 /100 WBC Normal [facility] Comment on above: Performed By: #### C BCDF #### [address] [address] Platelets (Bld) [#/Vol] 344 10*3/uL Normal 150 - 450 [facility] Comment on above: Performed By: #### C BCDF #### [place] [id number] RBC 5.87 x10E12/L High 4.00 - 5.20 [facility] Comment on above: Performed By: #### C BCDF #### [address] [address] WBC (Bld) [#/Vol] 10.4 10*3/uL Normal 4.4 - 11.3 [facility] Comment on above: Performed By: #### C BCDF #### [address] [address] COMPREHENSIVE PANELon 2020 Albumin [Mass/Vol] 4.5 g/dL Normal 3.4 - 5.0 [facility] Comment on above: Performed By: #### C MP ####[address] [address] ALP [Catalytic activity/Vol] 72 U/L Normal 33 - 110 [facility] Comment on above: Performed By: #### C MP ####[address] [address] ALT [Catalytic activity/Vol] 27 U/L Normal 7 - 45 [facility] Comment on above: Result Comment: Zhanna ents treated with Sulfasalazine may generate falsely decreased results for ALT. Performed By: #### C MP ####[address] [address] Anion gap [Moles/Vol] 10 mmol/L Normal 10 - 20 [facility] Comment on above: Performed By: #### C MP ####[place] [id number] AST [Catalytic activity/Vol] 18 U/L Normal 9 - 39 [facility] Comment on above: Performed By: #### C MP ####[place] [id number] Bilirubin [Mass/Vol] 0.5 mg/dL Normal 0.0 - 1.2 [facility] Comment on above: Performed By: #### C MP ####[place] [id number] Calcium [Mass/Vol] 9.6 mg/dL Normal 8.6 - 10.3 [facility] Comment on above: Performed By: #### C MP ####[place] [id number] Chloride [Moles/Vol] 101 mmol/L Normal 98 - 107 [facility] Comment on above: Performed By: #### C MP ####[place] [id number] Creatinine [Mass/Vol] 0.66 mg/dL Normal 0.50 - 1.05 [facility] Comment on above: Performed By: #### C MP ####[place] [id number] GFR- AM. >60 Normal >60 [facility] Comment on above: Result Comment: CALC ULATIONS OF ESTIMATED GFR ARE PERFORMED USING THE MDRD STUDY EQUATION FOR THE IDMS-TRACEABLE CREATININE METHODS. CLIN CHEM 2007;53:766-72 Performed By: #### C MP ####[address] [address] GFR-NON AM. >60 Normal >60 [facility] Comment on above: Performed By: #### C MP ####[place] [id number] Glucose [Mass/Vol] 110 mg/dL High 74 - 99 [facility] Comment on above: Performed By: #### C MP ####[address] [address] HCO3 (Bld) [Moles/Vol] 30 mmol/L Normal 21 - 32 [facility] Comment on above: Performed By: #### C MP ####[address] [id number] Potassium [Moles/Vol] 3.9 mmol/L Normal 3.5 - 5.3 [facility] Comment on above: Performed By: #### C MP ####[address] [address] Protein [Mass/Vol] 7.4 g/dL Normal 6.4 - 8.2 [facility] Comment on above: Performed By: #### C MP ####[address] [address] Sodium [Moles/Vol] 137 mmol/L Normal 136 - 145 [facility] Comment on above: Performed By: #### C MP ####[address] [address] Urea nitrogen [Mass/Vol] 10 mg/dL Normal 6 - 23 [facility] Comment on above: Performed By: #### C MP ####[address] [address] CORONAVIRUS 2019 BY PCRon SARS-CoV-2 (COVID-19) RNA CARMITA+probe Ql (Unsp spec) Not detected Normal Not Detected [facility] Comment on above: Result Comment: . This test has received FDA Emergency Use Authorization (EUA) and has been verified by [facility]. This test is only authorized for the duration of time that circumstances exist to justify the authorization of the emergency use of in vitro diagnostic tests for the detection of SARS-CoV-2 virus and/or diagnosis of COVID-19 infection under section 564(b)(1) of the Act, 21 U.S.C. 360bbb-3(b)(1), unless the authorization is terminated or revoked sooner. [facility] is certified under CLIA-88 as qualified to perform high complexity testing. Testing is performed in the [facility] laboratory located at [address] [place] [address]. SARS-CoV-2/Flu/RSV Multiplex Test: Fact sheet for providers: https://www.fda.gov/media/053642/download Fact sheet for patients: https://www.fda.gov/media/344841/download Performed By: #### C OV19 ####[place] [address] Lab Specimen Source Nasal, Nasopharyngeal Normal [facility] Comment on above: Performed By: #### C OV19 ####[place] [address] Covid 19 Resultson 1 SARS-CoV-2 (COVID-19) RNA [...] You may also be contacted by the [place] Department of Health to see if any of your close [...] or Naproxen (Aleve) can also be used. Qahu-khv-wbkbtoo cough and cold medicines can be used according to the instructions on the package. Some lqzu-kep-dtnrzlz medicines also contain acetaminophen. Make sure you [...] water are not available, use alcohol-based hand neurology hospitalist. Avoid touching your eyes, nose, and mouth [...] 24 pattie (more content not included)... Normal [facility] LACTATEon 11-17-2020 Lactate [Moles/Vol] 0.9 mmol/L Normal 0.4 - 2.0 [facility] Comment on above: Result Comment: Abril puncture immediately after or during the administration of Metamizole may lead to falsely low results. Testing should be performed immediately prior to Metamizole dosing. Performed By: #### L ACT #### [address] [address] LIPASEon 11-17-2020 Lipase [Catalytic activity/Vol] 8 U/L Low 9 - 82 [facility] Comment on above: Result Comment: Abril puncture immediately after or during the administration of Metamizole may lead to falsely low results. Testing should be performed immediately prior to Metamizole dosing. J-hqwkxq-y-benzoquinone imine (metabolite of Acetaminophen) will generate erroneously low results in samples for patients that have taken toxic doses of acetaminophen. Performed By: #### L IPAS #### [address] [address] MANUAL DIFFERENTIALon 2020 % BAND NEUTROPHIL 2.0 % Normal 0.0 - 5.0 [facility] Comment on above: Performed By: #### M DIFF #### [address] [address] % BASOPHIL 0.0 % Normal 0.0 - 2.0 [facility] Comment on above: Performed By: #### M DIFF #### [address] [address] % EOSINOPHIL 1.0 % Normal 0.0 - 6.0 [facility] Comment on above: Performed By: #### M DIFF #### [address] [address] % LYMPH-ATYPICAL 5.0 % Normal 0.0 - 2.0 [facility] Comment on above: Performed By: #### M DIFF #### [address] [address] % LYMPHOCYTE 15.0 % Normal 13.0 - 44.0 [facility] Comment on above: Performed By: #### M DIFF #### [address] [address] % MONOCYTE 4.0 % Normal 2.0 - 10.0 [facility] Comment on above: Performed By: #### M DIFF #### [address] [address] % SEG NEUTROPHIL 73.0 % Normal 40.0 - 80.0 [facility] Comment on above: Result Comment: Perc ent differential counts (%) should be interpreted in the context of the absolute cell counts (cells/L). Performed By: #### M DIFF #### [address] [address] ANC 7.80 x10E9/L High 1.20 - 7.70 [facility] Comment on above: Performed By: #### M DIFF #### [address] [address] BAND NEUTROPHIL 0.21 x10E9/L Normal 0.00 - 0.70 [facility] Comment on above: Performed By: #### M DIFF #### [address] [address] BASOPHIL 0.00 x10E9/L Normal 0.00 - 0.10 [facility] Comment on above: Performed By: #### M DIFF #### [address] [address] EOSINOPHIL 0.10 x10E9/L Normal 0.00 - 0.70 [facility] Comment on above: Performed By: #### M DIFF #### [address] [address] LYMPH-ATYPICAL 0.52 x10E9/L High 0.00 - 0.50 [facility] Comment on above: Performed By: #### M DIFF #### [address] [address] LYMPHOCYTE 1.56 x10E9/L Normal 1.20 - 4.80 [facility] Comment on above: Performed By: #### M DIFF #### [address] [address] MONOCYTE 0.42 x10E9/L Normal 0.10 - 1.00 [facility] Comment on above: Performed By: #### M DIFF #### [place] [address] SEG NEUTROPHIL 7.59 x10E9/L High 1.20 - 7.00 [facility] Comment on above: Performed By: #### M DIFF #### [address] [address] Provider Note - ED v2on 06-0 Provider [...] documented data. SIGNIFICANT EVENTS: No documented data. 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 No focal hepatic lesion identified. Negative gallbladder. No biliary dilation. Subvisualization of the pancreas. Ultrasound Gallbladder [Nov 17 2020 10:40AM] VITAL SIGNS: T PRBP SpO2O2(LPM) %FiO2 Method 17-Nov-2020 09:45:[id number] 100 room air, no respiratory support 17-Nov-2020 07:01:[id number] 98 PHYSICAL EXAM CONSTITUTIONAL: Well appearing, well [...] From Triage - ED 17-Nov-2020 07:01 Normal [facility] RED CELL MORPHOLOGYon 2020 RBC morphology finding Nom (Bld) NORMAL Normal [facility] Comment on above: Performed By: #### M ORP2 #### [place] [address] Triage - EDon 11-17-2020 Triage - ED [...] BMI (kg/m2): 32.812 Calculated BSA (m2) 1.93 Alban Coma Scale: Best Eye Response: (E4) spontaneous Best Motor Response: (M6) obeys commands Best Verbal Response: (V5) oriented Coleman Score: 15 Allergies: no Mask applied: yes 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 Comment on above: Performed By: #### U AMIC #### [place] [address] RBC 1 /HPF Normal 0-5 [facility] Comment on above: Performed By: #### U AMIC #### [place] [address] SQUAMOUS EPITH. CELLS 6 /HPF Normal [facility] Comment on above: Performed By: #### U AMIC #### [place] [address] WBC 3 /HPF Normal 0-5 [facility] Comment on above: Performed By: #### U AMIC #### [place] [address] URINALYSISon 11-17-2020 Appearance (U) HAZY Normal CLEAR [facility] Comment on above: Performed By: #### U A #### [place] [address] Bilirubin Ql (U) Negative Normal NEGATIVE [facility] Comment on above: Performed By: #### U A #### [place] [address] Color (U) Yellow Normal STRAW,YELLO W [facility] Comment on above: Performed By: #### U A #### [place] [address] Glucose Ql (U) Negative Normal NEGATIVE [facility] Comment on above: Performed By: #### U A #### [place] [id number] Hemoglobin Ql (U) Negative Normal NEGATIVE [facility] Comment on above: Performed By: #### U A #### [place] [id number] Ketones Ql (U) Negative Normal NEGATIVE [facility] Comment on above: Performed By: #### U A #### [place] [id number] Leukocyte esterase Test strip Ql (U) Negative Normal NEGATIVE [facility] Comment on above: Performed By: #### U A #### [place] [address] Nitrite Ql (U) Negative Normal NEGATIVE [facility] Comment on above: Performed By: #### U A #### [place] [address] pH (U) 7.0 [pH] Normal 5.0 - 8.0 [facility] Comment on above: Performed By: #### U A #### [place] [address] Protein Ql (U) 30(1+) Abnormal NEGATIVE [facility] Comment on above: Performed By: #### U A #### [place] [address] Specific gravity (U) [Rel density] 1.021 Normal 1.005 - 1.035 [facility] Comment on above: Performed By: #### U A #### [place] [id number] Urobilinogen (U) [Mass/Vol] mg/dL Normal 0.0 - 1.9 [facility] Comment on above: Performed By: #### U A #### [place] [id number] US GALLBLADDERon 11-17-2020 US GALLBLADDER Patient Name: FRIDA WIN STUDY: US GALLBLADDER; 11/17/2020 10:34 am INDICATION: stable. Nausea with vomiting. COMPARISON: None. ACCESSION NUMBER(S): [id number] ORDERING CLINICIAN: JENNY GIANG TECHNIQUE: Real-time sonographic [...] pancreas. Electronically signed by: SYDNIE ROSE MD [facility] CHEST PA AND LATERALon 02-13 CHEST PA AND LATERAL Final ReportAccession No: [id number] Performed: Feb 13 2018 9:12AMExamination: CHEST PA AND LATERALEXAMINATION: CHEST PA AND LATERALHISTORY: PhysicalTECHNIQUE: Frontal and lateral chest radiographs.COMPARISON: Chest radiographs dated 02/27/2012.FINDINGS: No focal consolidation, pleural effusion or pneumothorax. Thecardiomediastinal silhouette is normal in size. No acute osseousabnormality.IMPR ESSION:No acute cardiopulmonary process.Interpreting Physician: ESTELA LARIOS M.D.Trans: reji : cc: Normal [facility] Lipid Panelon 02-13-2018 Cholesterol in HDL mass conc 42 mg/dL Invalid Interpretation Code 40 - 59 mg/dL [facility] Cholesterol in LDL mass conc 90 mg/dL Invalid Interpretation Code 10 - 150 mg/dL [facility] Cholesterol in VLDL mass conc 19 mg/dL Invalid Interpretation Code 5 - 40 mg/dL [facility] Cholesterol mass conc 150 mg/dL Invalid Interpretation Code 100 - 199 mg/dL [facility] Cholesterol.total/Karlie sterol in HDL mass ratio 3.6 {ratio} Invalid Interpretation Code [facility] Comment on above: Female Coronary Hear t Disease Risk Factor (CHDRF): Average risk= 4.4 1/2 Average risk= 3.3 2 times Average risk= 7.1 Triglyceride mass conc 96 mg/dL Invalid Interpretation Code 25 - 120 mg/dL [facility] Cholesterol in HDL mass conc 42 mg/dL Normal 40-59 [facility] Comment on above: Performed By: #### L IPID ####Unless otherwise noted, all testing performed by [address] [phone]: [id number] Director: Julio Olivares M.D. Cholesterol in LDL mass conc 90 mg/dL Normal 10-150 [facility] Comment on above: Performed By: #### L IPID ####Unless otherwise noted, all testing performed by [address] [phone]: [id number] Director: Julio Olivares M.D. Cholesterol in VLDL mass conc 19 mg/dL Normal 5-40 [facility] Comment on above: Performed By: #### L IPID ####Unless otherwise noted, all testing performed by [address] [phone]: [id number] Director: Julio Olivares M.D. Cholesterol mass conc 150 mg/dL Normal 100-199 [facility] Comment on above: Performed By: #### L IPID ####Unless otherwise noted, all testing performed by [address] [phone]: [id number] Director: Julio Olivares M.D. Cholesterol.total/Karlie sterol in HDL mass ratio 3.6 {ratio} Normal 3.2-5.0 [facility] Comment on above: Result Comment: Balbir grullon Coronary Heart Disease Risk Factor (CHDRF):Average risk= 4.41/2 Average risk= 3.32 times Average risk= 7.1 Performed By: #### L IPID ####Unless otherwise noted, all testing performed by [address] [phone]: [id number] Director: Julio Olivares M.D. Triglyceride mass conc 96 mg/dL Normal 25-120 [facility] Comment on above: Performed By: #### L IPID ####Unless otherwise noted, all testing performed by [address] [phone]: [id number] Director: Julio Olivares M.D. Vital Signs Date Time Vital Sign Value Performing Clinician Facility 12-08-2024 11:00-0400 Body temperature 98 [degF] Mela Walker NUTRITIONAL ASSISTANT-C Work Phone: [facility] 12-08-2024 11:00-0400 Diastolic blood pressure 57 mm[Hg] Mela Walker NUTRITIONAL ASSISTANT-C Work Phone: [facility] 12-08-2024 11:00-0400 Heart rate 89 /min Mela Walker NUTRITIONAL ASSISTANT-C Work Phone: [facility] 12-08-2024 11:00-0400 Respiratory rate 18 /min Mela Walker NUTRITIONAL ASSISTANT-C Work Phone: [facility] 12-08-2024 11:00-0400 SaO2% (BldA) [Mass fraction] 99 % Mela Walker NUTRITIONAL ASSISTANT-C Work Phone: [facility] 12-08-2024 11:00-0400 Systolic blood pressure 124 mm[Hg] Mela Walker NUTRITIONAL ASSISTANT-C Work Phone: [facility] 12-08-2024 07:11-0400 Body height 160.02 cm Mela Walker NUTRITIONAL ASSISTANT-C Work Phone: [facility] 12-08-2024 07:11-0400 Body mass index (BMI) [Ratio] 43.4 kg/m2 Mela Walker NUTRITIONAL ASSISTANT-C Work Phone: [facility] 12-08-2024 07:11-0400 Body weight 111.13 kg Mela Walker NUTRITIONAL ASSISTANT-C Work Phone: [facility] 10-14-2024 15:07-0400 Body mass index (BMI) [Ratio] 43.7 kg/m2 Mela Walker NUTRITIONAL ASSISTANT-C Work Phone: [facility] 10-14-2024 15:07-0400 Body weight 112.03 kg Mela Walker NUTRITIONAL ASSISTANT-C Work Phone: [facility] 10-14-2024 15:07-0400 Diastolic blood pressure 81 mm[Hg] Mela Walker NUTRITIONAL ASSISTANT-C Work Phone: [facility] 10-14-2024 15:07-0400 Systolic blood pressure 137 mm[Hg] Mela Walker NUTRITIONAL ASSISTANT-C Work Phone: [facility] 03-13-2024 13:55-0400 Body height 160 cm Mela Walker CLASSIFIED AD CLERK Work Phone: [facility] 03-13-2024 13:55-0400 Body mass index (BMI) [Ratio] 41.06 kg/m2 Mela Walker CLASSIFIED AD CLERK Work Phone: [facility] 03-13-2024 13:55-0400 Body temperature 98.29 [degF] Mela Walker CLASSIFIED AD CLERK Work Phone: [facility] 03-13-2024 13:55-0400 Body weight 105.14 kg Mela Walker CLASSIFIED AD CLERK Work Phone: [facility] 03-13-2024 13:55-0400 Diastolic blood pressure 81 mm[Hg] Mela Walker CLASSIFIED AD CLERK Work Phone: [facility] 03-13-2024 13:55-0400 Heart rate 86 /min Mela Walker CLASSIFIED AD CLERK Work Phone: [facility] 03-13-2024 13:55-0400 Respiratory rate 16 /min Mela Walker CLASSIFIED AD CLERK Work Phone: [facility] 03-13-2024 13:55-0400 SaO2% (BldA) [Mass fraction] 97 % Mela Walker CLASSIFIED AD CLERK Work Phone: [facility] 03-13-2024 13:55-0400 Systolic blood pressure 120 mm[Hg] Mela Walker CLASSIFIED AD CLERK Work Phone: [facility] 04-04-2023 10:32-0400 Body height 160 cm Mela Walker CLASSIFIED AD CLERK Work Phone: [facility] 04-04-2023 10:32-0400 Body mass index (BMI) [Ratio] 37.24 kg/m2 Mela Walker CLASSIFIED AD CLERK Work Phone: [facility] 04-04-2023 10:32-0400 Body temperature 98.1 [degF] Mela Walker CLASSIFIED AD CLERK Work Phone: [facility] 04-04-2023 10:32-0400 Body weight 95.35 kg Mela Walker CLASSIFIED AD CLERK Work Phone: [facility] 04-04-2023 10:32-0400 Diastolic blood pressure 83 mm[Hg] Mela Walker CLASSIFIED AD CLERK Work Phone: [facility] 04-04-2023 10:32-0400 Heart rate 106 /min Mela Walker CLASSIFIED AD CLERK Work Phone: [facility] 04-04-2023 10:32-0400 SaO2% (BldA) [Mass fraction] 93 % Mela Walker CLASSIFIED AD CLERK Work Phone: [facility] 04-04-2023 10:32-0400 Systolic blood pressure 125 mm[Hg] Mela Walker CLASSIFIED AD CLERK Work Phone: [facility] 03-22-2023 15:43-0400 Body height 160.[address] Priyanka Leonardo Work Phone: [facility] 03-22-2023 15:43-0400 Body mass index (BMI) [Ratio] 36.8 kg/m2 Dr. Priyanka Leonardo Work Phone: [facility] 03-22-2023 15:43-0400 Body weight 94.[address] Priyanka Leonardo Work Phone: [facility] 03-22-2023 15:43-0400 Diastolic blood pressure 80 mm[Hg] Dr. Priyanka Leonardo Work Phone: [facility] 03-22-2023 15:43-0400 Systolic blood pressure 122 mm[Hg] Dr. Priyanka Leonardo Work Phone: [facility] 07-19-2022 15:01-0500 Body height 160 cm Mela Walker CLASSIFIED AD CLERK Work Phone: [facility] 07-19-2022 15:01-0500 Body mass index (BMI) [Ratio] 37.75 kg/m2 Melaulysses Walker CLASSIFIED AD CLERK Work Phone: [facility] 07-19-2022 15:01-0500 Body temperature 98.29 [degF] Melaulysses Walker CLASSIFIED AD CLERK Work Phone: [facility] 07-19-2022 15:01-0500 Body weight 96.66 kg Mela Walker CLASSIFIED AD CLERK Work Phone: [facility] 07-19-2022 15:01-0500 Diastolic blood pressure 80 mm[Hg] Mela Walker CLASSIFIED AD CLERK Work Phone: [facility] 07-19-2022 15:01-0500 Heart rate 106 /min Mela Walker CLASSIFIED AD CLERK Work Phone: [facility] 07-19-2022 15:01-0500 Respiratory rate 16 /min Mela Walker CLASSIFIED AD CLERK Work Phone: [facility] 07-19-2022 15:01-0500 SaO2% (BldA) [Mass fraction] 98 % Mela Walker CLASSIFIED AD CLERK Work Phone: [facility] 07-19-2022 15:01-0500 Systolic blood pressure 115 mm[Hg] Mela Walker CLASSIFIED AD CLERK Work Phone: [facility] 12-16-2021 00:08-0400 Body mass index (BMI) [Ratio] 37.6 kg/m2 [facility] Work Phone: 10-16-2021 00:22-0400 Body mass index (BMI) [Ratio] 37.6 kg/m2 [facility] Work Phone: 09-16-2021 00:21-0400 Body mass index (BMI) [Ratio] 37.6 kg/m2 NUTRITIONAL ASSISTANT-C [employer] Work Phone: [facility] Work Phone: 08-16-2021 00:20-0500 Body mass index (BMI) [Ratio] 37.6 kg/m2 [facility] Work Phone: 08-15-2021 23:20-0500 Body mass index (BMI) [Ratio] 37.6 kg/m2 NUTRITIONAL ASSISTANT-C [employer] Work Phone: [facility] Work Phone: 08-03-2021 15:12-0500 Body height 160 cm No Pcp Required [facility] 08-03-2021 15:12-0500 Body temperature 96.98 [degF] No Pcp Required [facility] 08-03-2021 15:12-0500 Diastolic blood pressure 67 mm[Hg] No Pcp Required [facility] 08-03-2021 15:12-0500 Heart rate 96 /min No Pcp Required [facility] 08-03-2021 15:12-0500 Respiratory rate 16 /min No Pcp Required [facility] 08-03-2021 15:12-0500 SaO2% (BldA) [Mass fraction] 96 % No Pcp Required [facility] 08-03-2021 15:12-0500 Systolic blood pressure 124 mm[Hg] No Pcp Required [facility] 07-18-2021 23:16-0500 Body mass index (BMI) [Ratio] 37.6 kg/m2 NUTRITIONAL ASSISTANT-C Bethanie Redick Work Phone: [facility] Work Phone: 06-26-2021 12:41-0500 Body temperature 97.3 [degF] NUTRITIONAL ASSISTANT-C Bethanie Redick Work Phone: [facility] Work Phone: 06-26-2021 12:41-0500 Diastolic blood pressure 80 mm[Hg] NUTRITIONAL ASSISTANT-C Bethanie Redick Work Phone: [facility] Work Phone: 06-26-2021 12:41-0500 Heart rate 108 /min NUTRITIONAL ASSISTANT-C Bethanie Redick Work Phone: [facility] Work Phone: 06-26-2021 12:41-0500 Respiratory rate 15 /min NUTRITIONAL ASSISTANT-C Bethanie Redick Work Phone: [facility] Work Phone: 06-26-2021 12:41-0500 SaO2% (BldA) [Mass fraction] 99 % NUTRITIONAL ASSISTANT-C Bethanie Redick Work Phone: [facility] Work Phone: 06-26-2021 12:41-0500 Systolic blood pressure 150 mm[Hg] NUTRITIONAL ASSISTANT-C Bethanie Redick Work Phone: [facility] Work Phone: 06-17-2021 23:10-0500 Body mass index (BMI) [Ratio] 37.6 kg/m2 NUTRITIONAL ASSISTANT-C Bethanie Redick Work Phone: [facility] Work Phone: 05-17-2021 23:06-0500 Body mass index (BMI) [Ratio] 37.6 kg/m2 NUTRITIONAL ASSISTANT-C Bethanie Redick Work Phone: [facility] Work Phone: 04-15-2021 08:07-0400 Body height 160 cm Mela Walker CLASSIFIED AD CLERK Work Phone: [facility] 04-15-2021 08:07-0400 Body mass index (BMI) [Ratio] 38.6 kg/m2 Mela Wakler CLASSIFIED AD CLERK Work Phone: [facility] 04-15-2021 08:07-0400 Body temperature 98.1 [degF] Mela Walker CLASSIFIED AD CLERK Work Phone: [facility] 04-15-2021 08:07-0400 Body weight 98.84 kg Mela Walker CLASSIFIED AD CLERK Work Phone: [facility] 04-15-2021 08:07-0400 Diastolic blood pressure 82 mm[Hg] Mela Walker CLASSIFIED AD CLERK Work Phone: [facility] 04-15-2021 08:07-0400 Heart rate 83 /min Mela Walker CLASSIFIED AD CLERK Work Phone: [facility] 04-15-2021 08:07-0400 Respiratory rate 16 /min Mela Walker CLASSIFIED AD CLERK Work Phone: [facility] 04-15-2021 08:07-0400 SaO2% (BldA) [Mass fraction] 97 % Mela Walker CLASSIFIED AD CLERK Work Phone: [facility] 04-15-2021 08:07-0400 Systolic blood pressure 117 mm[Hg] Mela Walker CLASSIFIED AD CLERK Work Phone: [facility] 12-08-2020 10:48-0400 Body height 160 cm Mela Walker CLASSIFIED AD CLERK Work Phone: [facility] 12-08-2020 10:48-0400 Body mass index (BMI) [Ratio] 38.3 kg/m2 Mela Walker CLASSIFIED AD CLERK Work Phone: [facility] 12-08-2020 10:48-0400 Body temperature 98.6 [degF] Mela Walker CLASSIFIED AD CLERK Work Phone: [facility] 12-08-2020 10:48-0400 Body weight 98.07 kg Mela Walker CLASSIFIED AD CLERK Work Phone: [facility] 12-08-2020 10:48-0400 Diastolic blood pressure 85 mm[Hg] Mela Walker CLASSIFIED AD CLERK Work Phone: [facility] 12-08-2020 10:48-0400 Heart rate 103 /min Mela Walker CLASSIFIED AD CLERK Work Phone: [facility] 12-08-2020 10:48-0400 Respiratory rate 16 /min Mela Walker CLASSIFIED AD CLERK Work Phone: [facility] 12-08-2020 10:48-0400 SaO2% (BldA) [Mass fraction] 98 % Mela Walker CLASSIFIED AD CLERK Work Phone: [facility] 12-08-2020 10:48-0400 Systolic blood pressure 128 mm[Hg] Melaulysses Walker CLASSIFIED AD CLERK Work Phone: [facility] 11-17-2020 13:45-0400 Diastolic blood pressure 64 mm[Hg] No Pcp Required [facility] 11-17-2020 13:45-0400 Heart rate 85 /min No Pcp Required [facility] 11-17-2020 13:45-0400 Respiratory rate 16 /min No Pcp Required [facility] 11-17-2020 13:45-0400 SaO2% (BldA) [Mass fraction] 100 % No Pcp Required [facility] 11-17-2020 13:45-0400 Systolic blood pressure 124 mm[Hg] No Pcp Required [facility] 11-17-2020 09:01-0400 Body height 160 cm No Pcp Required [facility] 11-17-2020 09:01-0400 Body temperature 96.98 [degF] No Pcp Required [facility] 11-17-2020 09:01-0400 Body weight 84 kg No Pcp Required [facility] 06-01-2020 11:54-0500 BMI (Body Mass Index) 37.36 kg/m2 [facility] 11:54-0500 Body Temperature 97.59 [degF] Barbara Cruz [facility] 06-01-2020 11:54-0500 Body weight 95.66 kg Barbara Cruz [facility] 06-01-2020 11:54-0500 BP Diastolic 84 mm[Hg] Barbara Cruz [facility] 06-01-2020 11:54-0500 BP Systolic 127 mm[Hg] Barbara Cruz [facility] 06-01-2020 11:54-0500 Height 160 cm [facility] 06-01-2020 11:54-0500 Pulse (Heart Rate) 98 /min Barbara [facility] 06-01-2020 11:54-0500 Pulse Oximetry 98 % [facility] 06-01-2020 11:54-0500 Respiratory Rate 18 /min [facility] 01-09-2020 10:23-0400 BMI (Body Mass Index) 36.88 kg/m2 Barbara [facility] 01-09-2020 10:23-0400 Body Temperature 97.81 [degF] Barbara [facility] 01-09-2020 10:23-0400 Body weight 94.44 kg Barbara [facility] 01-09-2020 10:23-0400 BP Diastolic 80 mm[Hg] Barbara [facility] 01-09-2020 10:23-0400 BP Systolic 116 mm[Hg] Barbara [facility] 01-09-2020 10:23-0400 Pulse (Heart Rate) 94 /min Barbara [facility] 01-09-2020 10:23-0400 Pulse Oximetry 98 % Barbara [facility] 01-09-2020 10:23-0400 Respiratory Rate 16 /min Barbara [facility] 06-20-2019 08:21-0500 BMI (Body Mass Index) 36.12 kg/m2 Barbara [facility] 06-20-2019 08:21-0500 Body Temperature 97.9 [degF] [facility] 06-20-2019 08:21-0500 Body weight 92.49 kg Barbara [facility] 06-20-2019 08:21-0500 BP Diastolic 79 mm[Hg] Barbara [facility] 06-20-2019 08:21-0500 BP Systolic 131 mm[Hg] Barbara [facility] 06-20-2019 08:21-0500 Pulse (Heart Rate) 101 /min Barbara [facility] 06-20-2019 08:21-0500 Pulse Oximetry 96 % Barbara [facility] 06-20-2019 08:21-0500 Respiratory Rate 18 /min [facility] 02-21-2019 13:38-0400 BMI (Body Mass Index) 35.53 kg/m2 Barbara [facility] 02-21-2019 13:38-0400 Body Temperature 97.5 [degF] Barbara Cruz [facility] 02-21-2019 13:38-0400 Body weight 90.99 kg Barbara Cruz [facility] 02-21-2019 13:38-0400 BP Diastolic 79 mm[Hg] Barbara Cruz [facility] 02-21-2019 13:38-0400 BP Systolic 112 mm[Hg] Barbara Cruz [facility] 02-21-2019 13:38-0400 Height 160 cm Barbara Cruz [facility] 02-21-2019 13:38-0400 Pulse (Heart Rate) 84 /min Barbara Cruz [facility] 02-21-2019 13:38-0400 Pulse Oximetry 97 % [facility] 11-13-2018 14:34-0400 BMI (Body Mass Index) 33.8 kg/m2 Barbara [facility] 11-13-2018 14:34-0400 Body Temperature 98.1 [degF] [facility] 11-13-2018 14:34-0400 BP Diastolic 79 mm[Hg] Barbara [facility] 11-13-2018 14:34-0400 BP Systolic 119 mm[Hg] [facility] 11-13-2018 14:34-0400 Pulse (Heart Rate) 81 /min Barbara [facility] 11-13-2018 14:34-0400 Pulse Oximetry 98 % [facility] 11-13-2018 14:34-0400 Respiratory Rate 18 /min [facility] 11-13-2018 14:34-0400 Weight 90.72 kg [facility] 08-09-2018 08:24-0500 BMI (Body Mass Index) 34.22 kg/m2 Barbara [facility] 08-09-2018 08:24-0500 Body Temperature 98.4 [degF] Barbara [facility] 08-09-2018 08:24-0500 BP Diastolic 82 mm[Hg] Barbara [facility] 08-09-2018 08:24-0500 BP Systolic 125 mm[Hg] Barbara [facility] 08-09-2018 08:24-0500 Height 163.8 cm Barbara [facility] 08-09-2018 08:24-0500 Pulse (Heart Rate) 92 /min Barbara [facility] 08-09-2018 08:24-0500 Pulse Oximetry 94 % Barbara Castillo [facility] 08-09-2018 08:24-0500 Respiratory Rate 18 /min Barbara Castillo [facility] 08-09-2018 08:24-0500 Weight 91.85 kg Barbara Castillo [facility] Encounters Encounter Date Encounter Type Care Provider Facility Start: 01-29-2025 ambulatory Mela Walker Facility:[facility] Start: 01-12-2025 End: 01-12-2025 ambulatory Mela Walker NUTRITIONAL ASSISTANT-C Work Phone: -Laboratory Start: 01-12-2025 End: 01-12-2025 Patient encounter procedure Mela Denise NUTRITIONAL ASSISTANT-C -Laboratory Work Phone: Start: 01-12-2025 End: 01-12-2025 ambulatory Mela Walker Facility:[facility] Start: 01-08-2025 End: 01-08-2025 Refill Mela Walker CLASSIFIED AD CLERK Work Phone: [facility] Comment on above: Attention deficit hy peractivity disorder (ADHD), predominantly inattentive type Start: 12-10-2024 ambulatory MELA WALKER [facility] Ambulatory Start: 12-08-2024 End: 12-08-2024 Emergency department patient visit Mela Walker NUTRITIONAL ASSISTANT-C Work Phone: -Emergency Department Work Phone: Start: 10-14-2024 End: 10-14-2024 Patient encounter procedure Uyen Marcano NUTRITIONAL ASSISTANT-C -[place] Work Phone: Start: 10-14-2024 End: 10-14-2024 ambulatory Mela Walker [facility] Start: 10-13-2024 End: 10-13-2024 Refill Mela Walker CLASSIFIED AD CLERK Work Phone: [facility] Primary [facility] Comment on above: Attention deficit hy peractivity disorder (ADHD), predominantly inattentive type Start: 09-10-2024 End: 09-10-2024 Telemedicine consultation with patient Mela Walker CLASSIFIED AD CLERK Work Phone: [facility] Comment on above: Attention deficit hy peractivity disorder (ADHD), predominantly inattentive type (Primary Dx); Depression, unspecified depression type Start: 09-10-2024 End: 09-10-2024 ambulatory MELA WALKER [facility] Start: 08-08-2024 End: 08-08-2024 Refill Mela Walker CLASSIFIED AD CLERK Work Phone: [facility] Comment on above: Vitamin D deficiency ; Depression, unspecified depression type; Attention deficit hyperactivity disorder (ADHD), predominantly inattentive type Start: 07-30-2024 End: 07-30-2024 ambulatory Mela Walker Facility:[facility] Start: 07-24-2024 End: 07-24-2024 Refill Mela Darby Walker CLASSIFIED AD CLERK Work Phone: [facility] Comment on above: Attention deficit hy peractivity disorder (ADHD), predominantly inattentive type Start: 07-22-2024 End: 07-22-2024 ambulatory Mela Walker Facility:[facility] Start: 06-20-2024 End: 06-20-2024 Refill Mela Walker CLASSIFIED AD CLERK Work Phone: [facility] Comment on above: Intractable migraine with aura without status migrainosus; Attention deficit hyperactivity disorder (ADHD), predominantly inattentive type Start: 05-26-2024 End: 05-26-2024 ambulatory Mela Walker [facility] Start: 03-25-2024 ambulatory MELA WALKER [facility] Ambulatory Start: 03-21-2024 End: 03-21-2024 ambulatory Mela Walker Facility:[facility] Start: 03-18-[address] [facility] Start: 03-13-2024 End: 03-13-2024 ambulatory MELA WALKER [facility] Start: 03-13-2024 End: 03-13-2024 Encounter for general adult medical examination without abnormal findings MELA WALKER [facility] Ambulatory Start: 03-13-2024 End: 03-13-2024 Patient encounter status Mela Darby Walker CLASSIFIED AD CLERK Work Phone: [facility] Start: 03-13-2024 End: 03-13-2024 Periodic preventive med est patient 40-64yrs Mela Walker CLASSIFIED AD CLERK Work Phone: [facility] Comment on above: Well adult exam (Yuki lizzie Dx); Attention deficit hyperactivity disorder (ADHD), predominantly inattentive type; Therapeutic drug monitoring; Screening mammogram for breast cancer; Morbid obesity with BMI of 40.0-44.9, adult (HCC); Dyslipidemia, goal LDL below 100 Start: 03-13-2024 ambulatory Mela Walker Facility:[facility] Start: 02-08-2024 End: 02-11-2024 Documentation procedure Mela Walker CLASSIFIED AD CLERK Work Phone: [facility] Start: 01-23-2024 End: 01-23-2024 ambulatory Kevin THOMAS [facility] Start: 01-07-2024 End: 01-07-2024 Refill Mela Walker CLASSIFIED AD CLERK Work Phone: [facility] Comment on above: Attention deficit hy peractivity disorder (ADHD), predominantly inattentive type Start: 10-12-2023 End: 10-12-2023 Office outpatient visit 25 minutes Mela Walker CLASSIFIED AD CLERK Work Phone: [facility] Comment on above: Attention deficit hy peractivity disorder (ADHD), predominantly inattentive type; Depression, unspecified depression type; Intractable migraine with aura without status migrainosus Start: 10-03-2023 Refill Mela lyons CLASSIFIED AD CLERK Work Phone: [facility] Comment on above: Attention deficit hy peractivity disorder (ADHD), predominantly inattentive type Start: 07-05-2023 End: 07-05-2023 Office outpatient visit 25 minutes Mela Walker CLASSIFIED AD CLERK Work Phone: [facility] Comment on above: Attention deficit hy peractivity disorder (ADHD), predominantly inattentive type; Vitamin D deficiency; Iron deficiency; Intractable migraine with aura without status migrainosus; Depression, unspecified depression type Start: 06-28-2023 End: 06-28-[address] Priyanka Leonardo Work Phone: [facility] Work Phone: Start: 06-28-2023 End: 06-28-[address] Priyanka Leonardo Work Phone: [facility]-Laboratory Work Phone: Start: 04-18-2023 End: 04-18-[address] Priyanka Leonardo Work Phone: [facility] Work Phone: Start: 04-04-2023 Encounter for genera l adult medical examination without abnormal findings MELA LIMA WALKER [facility] Ambulatory Start: 04-04-2023 End: 04-04-2023 Patient encounter status Mela Darby Walker CLASSIFIED AD CLERK Work Phone: [facility] Start: 04-04-2023 End: 04-04-2023 Periodic preventive med est patient 40-64yrs Mela Lima Walker CLASSIFIED AD CLERK Work Phone: [facility] Comment on above: Well adult exam (Yuki lizzie Dx); Iron deficiency; Attention deficit hyperactivity disorder (ADHD), predominantly inattentive type Start: 03-22-2023 End: 03-22-[address] Priyanka Leonardo Work Phone: [facility] Work Phone: Start: 03-21-2023 End: 04-17-[address] Priyanka Leonardo Work Phone: [facility] Work Phone: Start: 03-21-2023 End: 04-17-[address] Pryianka Leonardo Work Phone: [facility] Start: 03-05-2023 End: 03-17-2023 ambulatory [facility] Work Phone: Start: 03-05-2023 End: 03-17-2023 Discharged Recurring [facility] Start: 03-05-2023 Registered Referred [facility] Start: 01-30-2023 End: 01-30-2023 ambulatory [facility] Work Phone: Start: 01-30-2023 End: 01-30-2023 Patient encounter procedure [facility] Ul[facility] Work Phone: Start: 01-23-2023 End: 01-23-2023 Patient encounter procedure [facility] Breast Imaging Work Phone: Start: 10-18-2022 End: 10-18-2022 Office outpatient visit 25 minutes Mela Walker CLASSIFIED AD CLERK Work Phone: [facility] Comment on above: Attention deficit hy peractivity disorder (ADHD), predominantly inattentive type; Mood disorder (HCC) Start: 08-08-2022 End: 08-08-2022 ambulatory [facility] Work Phone: Start: 08-08-2022 End: 08-08-2022 Patient encounter procedure [facility]Labor[facility] Start: 07-19-2022 End: 07-19-2022 Office outpatient visit 25 minutes Mela Walker CLASSIFIED AD CLERK Work Phone: [facility] Comment on above: Mood disorder (HCC) (Primary Dx); Intractable migraine with aura without status migrainosus; Depression, unspecified depression type; Attention deficit hyperactivity disorder (ADHD), predominantly inattentive type; Vitamin D deficiency; Screening for thyroid disorder; Encounter for lipid screening for cardiovascular disease; Iron deficiency; Well adult exam Start: 07-19-2022 End: 07-19-2022 Patient encounter status Mela Walker CLASSIFIED AD CLERK Work Phone: [facility] Start: 06-30-2022 End: 07-18-2022 ambulatory [facility] Work Phone: Start: 06-30-2022 End: 07-18-2022 Discharged Recurring [facility] Start: 06-28-2022 Refill Mela lyons CLASSIFIED AD CLERK Work Phone: [facility] Comment on above: Attention deficit hy peractivity disorder (ADHD), predominantly inattentive type Start: 04-18-2022 Patient encounter status Mela Denise CLASSIFIED AD CLERK Work Phone: [facility] Start: 02-10-2022 End: 02-10-2022 Office outpatient visit 25 minutes Mela Darby Denise CLASSIFIED AD CLERK Work Phone: [facility] Comment on above: Depression, unspecif ied depression type (Primary Dx); Attention deficit hyperactivity disorder (ADHD), predominantly inattentive type; Intractable migraine with aura without status migrainosus; Screening mammogram for breast cancer Start: 01-11-2022 End: 01-15-2022 Discharged Recurring [facility] Start: 12-14-2021 End: 12-15-2021 Discharged Recurring [facility] Start: 09-16-2021 End: 10-15-2021 Discharged Recurring NUTRITIONAL ASSISTANT-C [facility] Redick [facility] Start: 09-08-2021 End: 09-15-2021 Discharged Recurring NUTRITIONAL ASSISTANT-C Bethanie Redick [facility] Start: 08-15-2021 End: 08-15-2021 Discharged Recurring NUTRITIONAL ASSISTANT-C Bethanie Redick Work Phone: [facility] Start: 08-03-2021 End: 08-03-2021 Emergency department patient visit Deonte Dsouza [facility] [place] [id number] Start: 07-14-2021 End: 07-18-2021 Discharged Recurring NUTRITIONAL ASSISTANT-C Bethanie Redick [facility] Start: 07-05-2021 Orders Only Mela lyons CLASSIFIED AD CLERK Work Phone: [facility] Comment on above: Vitamin D deficiency (Primary Dx); Iron deficiency Start: 07-01-2021 Patient encounter procedure NUTRITIONAL ASSISTANT-C Bethanie Redick Work Phone: [facility] Start: 06-26-2021 End: 06-26-2021 Patient encounter procedure NUTRITIONAL ASSISTANT-C Bethanie Redick Work Phone: [facility] Start: 06-16-2021 End: 06-17-2021 Discharged Recurring NUTRITIONAL ASSISTANT-C Bethanie Martin Work Phone: [facility] Start: 06-06-2021 End: 06-06-2021 Office outpatient visit 15 minutes Mela Walker CLASSIFIED AD CLERK Work Phone: [facility] Comment on above: Attention deficit hy peractivity disorder (ADHD), predominantly inattentive type Start: 04-15-2021 End: 09-10-2024 Patient encounter status Mela Walker CLASSIFIED AD CLERK Work Phone: [facility] Start: 04-15-2021 End: 04-15-2021 Periodic preventive med est patient 18-39 yrs Mela Walker CLASSIFIED AD CLERK Work Phone: [facility] Comment on above: Well adult exam (Yuki lizzie Dx) Start: 03-10-2021 End: 03-10-2021 Office outpatient visit 15 minutes Mela Walker CLASSIFIED AD CLERK Work Phone: [facility] Comment on above: Attention deficit hy peractivity disorder (ADHD), predominantly inattentive type Start: 12-08-2020 End: 12-08-2020 Office outpatient visit 25 minutes Mela Walker CLASSIFIED AD CLERK Work Phone: [facility] Comment on above: Attention deficit hy peractivity disorder (ADHD), unspecified ADHD type (Primary Dx); ANISH (generalized anxiety disorder) Start: 11-17-2020 End: 11-17-2020 Emergency department patient visit Jenny Giang [facility] Emergency 13 Start: 07-16-2020 End: 07-16-2020 Refill Barbara Cruz Work Phone: [facility] Comment on above: Depression, unspecif ied depression type Start: 06-01-2020 End: 06-01-2020 Office outpatient visit 15 minutes Barbara Cruz Work Phone: [facility] Comment on above: Depression, unspecif ied depression type (Primary Dx); Attention deficit hyperactivity disorder (ADHD), unspecified ADHD type; Mood disorder (HCC) Start: 04-28-2020 End: 04-28-2020 Documentation procedure Barbara Cruz Work Phone: [facility] Start: 01-09-2020 End: 01-09-2020 Office outpatient visit 15 minutes Barbara Cruz Work Phone: [facility] Comment on above: Well adult exam ([facility] lizzie Dx); Attention deficit hyperactivity disorder (ADHD), unspecified ADHD type; Screening for lipid disorders Start: 06-20-2019 End: 06-20-2019 Office outpatient visit 15 minutes Barbara Cruz Work Phone: [facility] Comment on above: Attention deficit hy peractivity disorder (ADHD), unspecified ADHD type Start: 02-21-2019 End: 02-21-2019 Office outpatient visit 15 minutes Barbara Cruz Work Phone: [facility] Comment on above: Attention deficit hy peractivity disorder (ADHD), unspecified ADHD type Start: 11-14-2018 End: 11-18-2018 Patient encounter procedure BARBARA CRUZ [facility] Start: 11-13-2018 End: 11-13-2018 Office outpatient visit 15 minutes Barbara Cruz Work Phone: [facility] Comment on above: Attention deficit hy peractivity disorder (ADHD), unspecified ADHD type (Primary Dx); Encounter for well adult exam without abnormal findings; Screening for lipid disorders; Screening for thyroid disorder; Depression, unspecified depression type Start: 08-09-2018 End: 08-09-2018 Office outpatient new 45 minutes Barbaract Doss Jonathan Work Phone: [facility] Comment on above: Encounter for well a dult exam without abnormal findings (Primary Dx); Attention deficit hyperactivity disorder (ADHD), unspecified ADHD type Start: 02-13-2018 Patient encounter Abisai chester:[place] Start: 02-13-2018 End: 02-13-2018 Patient encounter Abisai Wyman Work Phone: [facility] Procedures Date Procedure Procedure Detail Performing Clinician Start: 01-12-2025 DENISE measurement Mela lazaro NUTRITIONAL ASSISTANT-C Work Phone: Comment on above: Performed at: [place] [id number] Director: Graham Kinney PhD, Phone: [phone] Start: 12-08-2024 Plain chest X-ray Mela Walker NUTRITIONAL ASSISTANT-C Work Phone: Start: 12-08-2024 Estimated creatinine clearance Mela Walker NUTRITIONAL ASSISTANT-C Work Phone: Start: 03-21-2024 Mammography Mela lyons CLASSIFIED AD CLERK Work Phone: Start: 03-13-2024 Drug tst prsmv instr mnt chem analyzers pr date Mela Walker CLASSIFIED AD CLERK Work Phone: Start: 03-21-[address] Priyanka eLonardo Work Phone: Start: 03-05-2023 Viral antigen assay Start: 01-30-2023 Ultrasonography of breast Start: 01-23-2023 End: 01-23-2023 Screening mammography Start: 09-15-2021 End: 09-15-2021 Viral antigen assay NUTRITIONAL ASSISTANT-C Bethanie Redick Work Phone: Start: 08-15-2021 SARS-CoV-2 Antigen (Rapid) NUTRITIONAL ASSISTANT-C Bethanie Redick Work Phone: Start: 07-14-2021 SARS-CoV-2 Antigen (Rapid) NUTRITIONAL ASSISTANT-C Bethanie Redick Work Phone: Start: 06-14-2021 SARS-CoV-2 Antigen (Rapid) NUTRITIONAL ASSISTANT-C Bethanie Redick Work Phone: Start: 02-13-2018 End: 02-13-2018 Lipid panel Abisai Wyman Work Phone: Viral antigen assay Viral antigen assay Plan of Treatment Date Care Activity Detail Author Start: 03-21-2025 Screening for malign ant neoplasm of breast Mammogram [facility] Start: 03-17-2025 End: 03-17-2025 Patient encounter procedure 03/17/2025 2:20 PM EDT Office Visit [facility] [address] [place] [address] Mela Walker, CLASSIFIED AD CLERK [address] [place] [address] [facility] Physician [facility] Start: 03-13-2025 Depression screening using PHQ-9 (Patient Health Questionnaire 9) score Depression Screening/Follow-Up (PHQ-2/9) [facility] Start: 03-13-2025 History and physical examination, annual for health maintenance Wellness Visit [facility] Start: 02-16-2025 Influenza vaccination [facility] Start: 12-08-2024 [facility] Start: 12-08-2024 [facility] Start: 09-10-2024 End: 09-10-2024 Telemedicine consultation with patient 09/10/2024 9:40 AM EDT Telemedicine [facility] [address] [place] [id number] Mela Walker, CLASSIFIED AD CLERK [address] [facility] [address] [place] [address] [facility] Start: 04-07-2024 COVID-19 Vaccine ( season) COVID-19 Vaccine ( season) [facility] Comment on above: Postponed from 02/16 (Treatment Not Available) Start: 04-04-2024 History and physical examination, annual for health maintenance Wellness Visit [facility] Start: 04-04-2024 Pneumococcal Vaccine : Ped or At-Risk (1 - PCV) Pneumococcal Vaccine: Ped or At-Risk (1 - PCV) [facility] Comment on above: Postponed from 08/18 (Patient Refused) Start: 04-04-2024 Pneumococcal Vaccine : Ped or At-Risk (1 of 2 - PCV) Pneumococcal Vaccine: Ped or At-Risk (1 of 2 - PCV) [facility] Comment on above: Postponed from 08/18 (Patient Refused) Start: 04-04-2024 Tetanus vaccination Tetanus: Every 1 0yrs [facility] Comment on above: Postponed from 06/19 (Patient Refused) Start: 03-06-2024 End: 03-06-2024 Patient encounter procedure 03/06/2024 3:20 PM EDT Office Visit [facility] [address] [place] [id number] Mela Walker, CLASSIFIED AD CLERK [address] [facility] [place] [address] [facility] Start: 02-17-2024 COVID-19 Vaccine ( season) COVID-19 Vaccine ( season) [facility] Start: 02-17-2024 COVID-19 Vaccine ( season) COVID-19 Vaccine ( season) [facility] Start: 02-17-2024 Influenza vaccination Influenza Vacc ine (#1) [facility] Start: 01-24-2024 Screening for malign ant neoplasm of breast Mammogram [facility] Start: 10-12-2023 End: 10-12-2023 Telemedicine consultation with patient 10/12/2023 1:40 PM EDT Telemedicine [facility] [address] [place] [id number] Mela Walker, CLASSIFIED AD CLERK [address] [facility] [place] [address] [facility] Start: 04-05-2023 History and physical examination, annual for health maintenance Wellness Visit [facility] Start: 02-10-2023 Tetanus vaccination Tetanus: Every 1 0yrs [facility] Comment on above: Postponed from 06/19 (Patient Refused) Start: 10-18-2022 End: 10-18-2022 Telemedicine consultation with patient 10/18/2022 Telemedicine Primary Care Mela Walker, CLASSIFIED AD CLERK [address] [place] [address] [facility] Start: 07-19-2022 End: 07-19-2022 Patient encounter procedure 07/19/2022 Office Visit Primary Care Mela Walker, CLASSIFIED AD CLERK [address] [place] [address] [facility] Start: 04-15-2022 History and physical examination, annual for health maintenance Wellness Visit [facility] Start: 04-15-2022 Pneumococcal Vaccine : Ped or At-Risk (1 - PCV) Pneumococcal Vaccine: Ped or At-Risk (1 - PCV) [facility] Comment on above: Postponed from 08/18 (Patient Refused) Start: 04-15-2022 Pneumococcal Vaccine : Ped or At-Risk (1 of 2 - PPSV23) Pneumococcal Vaccine: Ped or At-Risk (1 of 2 - PPSV23) [facility] Comment on above: Postponed from 08/18 (Patient Refused) Start: 02-16-2022 Influenza vaccination Sequenti al Influenza Vaccine (#1) [facility] Start: 12-08-2021 Depression screening using PHQ-9 (Patient Health Questionnaire 9) score Depression Screening/Follow-Up (PHQ-2/9) [facility] Start: 10-08-2021 Depression Remission Assessment (PHQ9) Depression Remission Assessment (PHQ9) [facility] Start: 2021 Screening for malign ant neoplasm of breast Mammogram [facility] Start: 06-19-2021 Tetanus vaccination [facility] Start: 06-06-2021 End: 06-06-2021 Telemedicine consultation with patient 06/06/2021 Telemedicine Primary Care Mela Walker CNP [address] [place] [address] [facility] Start: 05-27-2021 COVID-19 Vaccine (4 - Booster for Pfizer series) COVID-19 Vaccine (4 - Booster for Pfizer series) [facility] Start: 03-10-2021 End: 03-10-2021 Telemedicine consultation with patient 03/10/2021 Telemedicine Primary Care Mela Walker, CLASSIFIED AD CLERK [address] [place] [address] [phone] [facility] Start: 02-16-2021 Influenza vaccination [facility] Start: 11-17-2020 End: 11-18-2021 Sodium Chloride 0.9% IV Bolus . ; DOSE = 1,000 mL OnceInfuse over 1 hour(s) Start: 17-Nov-2020 End: 17-Nov-2021 Ordered: 17-Nov-2020 Jenny Giang [facility] Start: 11-17-2020 End: 11-18-2021 Sodium Chloride 0.9% Infusion . ; IV Bag Volume = 1,000 mL Run at: 125 mL/hr IntraVenous Start: 17-Nov-2020 End: 17-Nov-2021 Ordered: 17-Nov-2020 Jenny Giang [facility] Start: 11-08-2020 Depression Remission Assessment (PHQ9) Depression Remission Assessment (PHQ9) [facility] Start: 08-20-2020 End: 08-20-2020 Office Visit 08/20/2020 Office Visit Primary Care Barbara Cruz, CLASSIFIED AD CLERK [address] [place] [address] [phone] [facility] Start: 04-09-2020 End: 04-09-2020 Office Visit 04/09/2020 Office Visit Primary Care Barbara Cruz CNP [address] [place] [address] [phone] [facility] Start: 02-17-2020 Influenza vaccinatio n given Sequential Influenza Vaccine (#1) [facility] Start: 09-19-2019 End: 09-19-2019 Office Visit 09/19/2019 Office Visit Primary Care Barbara Cruz CNP [address] [place] [address] [phone] [facility] Start: 05-26-2019 End: 05-26-2019 Office Visit 05/26/2019 Office Visit Primary Care Barbara Cruz, CLASSIFIED AD CLERK [address] [place] [address] [phone] [facility] Start: 02-16-2019 Influenza vaccinatio n given SEQUENTIAL INFLUENZA VACCINE (#1) [facility] Start: 02-12-2019 End: 02-12-2019 Office Visit 02/12/2019 Office Visit Primary Care Barbara Cruz, CLASSIFIED AD CLERK [address] [place] [address] [phone] [facility] Start: 11-08-2018 End: 11-08-2018 Office Visit 11/08/2018 Office Visit Primary Care Barbara Castillo, CLASSIFIED AD CLERK [address] [place] [address] [phone] [facility] Start: 08-19-2011 Screening for malign ant neoplasm of cervix HPV/Cotest [facility] Start: 08-19-1999 Hepatitis C antibody , confirmatory test Hepatitis C Screening [facility] Start: 08-19-1999 Hepatitis C screening Hepatitis C Sc reening [facility] Start: 1996 HIV screening HIV Screening [facility] Start: 08-19-1987 Pneumococcal Vaccine : Ped or At-Risk (1 - PCV) Pneumococcal Vaccine: Ped or At-Risk (1 - PCV) [facility] Start: 08-19-1987 Pneumococcal Vaccine : Ped or At-Risk (1 of 2 - PPSV23) Pneumococcal Vaccine: Ped or At-Risk (1 of 2 - PPSV23) [facility] Start: 1984 History and physical examination, annual for health maintenance Wellness Visit [facility] Start: 1981 Depression screening using PHQ-9 (Patient Health Questionnaire 9) score DEPRESSION SCREENING (PHQ9) [facility] End: 11-14-2019 Complete blood count with white cell differential, manual CBC and Differential Lab Routine Encounter for well adult exam without abnormal findings 1 Occurrences starting 11/13/2018 until 11/14/2019 [facility] Comment on above: 1 Occurrences starti ng 11/13/2018 until 11/14/2019 End: 01-08-2021 Complete blood count with white cell differential, manual CBC and Differential Lab Routine Well adult exam 1 Occurrences starting 01/09/2020 until 01/08/2021 [facility] Comment on above: 1 Occurrences starti ng 01/09/2020 until 01/08/2021 End: 07-19-2023 Complete blood count with white cell differential, manual CBC and Differential Lab Routine Well adult exam 1 Occurrences starting 07/19/2022 until 07/19/2023 [facility] Comment on above: 1 Occurrences starti ng 07/19/2022 until 07/19/2023 End: 11-14-2019 Comprehensive metabolic 2000 panel Comprehensive Metabolic Panel Lab Routine Encounter for well adult exam without abnormal findings 1 Occurrences starting 11/13/2018 until 11/14/2019 [facility] Comment on above: 1 Occurrences starti ng 11/13/2018 until 11/14/2019 End: 01-08-2021 Comprehensive metabolic 2000 panel Comprehensive Metabolic Panel Lab Routine Well adult exam 1 Occurrences starting 01/09/2020 until 01/08/2021 [facility] Comment on above: 1 Occurrences starti ng 01/09/2020 until 01/08/2021 End: 07-19-2023 Comprehensive metabolic 2000 panel - Serum or Plasma Comprehensive Metabolic Panel Lab Routine Well adult exam 1 Occurrences starting 07/19/2022 until 07/19/2023 [facility] Work Phone: Comment on above: 1 Occurrences starti ng 07/19/2022 until 07/19/2023 End: 07-19-2023 Iron measurement Iron Study with Ferritin Lab Routine Iron deficiency Well adult exam 1 Occurrences starting 07/19/2022 until 07/19/2023 [facility] Comment on above: 1 Occurrences starti ng 07/19/2022 until 07/19/2023 End: 11-14-2019 Lipid 1996 panel Lipid Panel Lab Routine Screening for lipid disorders 1 Occurrences starting 11/13/2018 until 11/14/2019 [facility] Comment on above: 1 Occurrences starti ng 11/13/2018 until 11/14/2019 End: 01-08-2021 Lipid 1996 panel Lipid Panel Lab Routine Screening for lipid disorders 1 Occurrences starting 01/09/2020 until 01/08/2021 [facility] Comment on above: 1 Occurrences starti ng 01/09/2020 until 01/08/2021 End: 07-19-2023 Lipid 1996 panel - Serum or Plasma Lipid Panel Lab Routine Encounter for lipid screening for cardiovascular disease Well adult exam 1 Occurrences starting 07/19/2022 until 07/19/2023 [facility] Comment on above: 1 Occurrences starti ng 07/19/2022 until 07/19/2023 End: 04-12-2023 MG Breast - bilateral Screening Mammography Screening [facility] Routine Screening mammogram for breast cancer 1 Occurrences starting 02/10/2022 until 04/12/2023 [facility] Work Phone: Comment on above: 1 Occurrences starti ng 02/10/2022 until 04/12/2023 End: 05-13-2025 MG Breast - bilateral Screening Mammography Screening [facility] Routine Screening mammogram for breast cancer 1 Occurrences starting 03/13/2024 until 05/13/2025 [facility] Work Phone: Comment on above: 1 Occurrences starti ng 03/13/2024 until 05/13/2025 Patient Education ED Near-Fainti ng, Uncertain Cause [facility] Work Phone: Patient referral [facility] Work Phone: End: 07-19-2023 Thyrotropin [Units/volume] in Serum or Plasma TSH Lab Routine Screening for thyroid disorder Well adult exam 1 Occurrences starting 07/19/2022 until 07/19/2023 [facility] Comment on above: 1 Occurrences starti ng 07/19/2022 until 07/19/2023 End: 11-14-2019 Thyrotropin Qn TSH with Reflex Free T4 Lab Routine Screening for thyroid disorder 1 Occurrences starting 11/13/2018 until 11/14/2019 [facility] Comment on above: 1 Occurrences starti ng 11/13/2018 until 11/14/2019 End: 07-19-2023 Thyroxine (T4) free [Mass/volume] in Serum or Plasma T4, Free Lab Routine Screening for thyroid disorder Well adult exam 1 Occurrences starting 07/19/2022 until 07/19/2023 [facility] Comment on above: 1 Occurrences starti ng 07/19/2022 until 07/19/2023 End: 07-19-2023 Vitamin D, 25-hydroxy measurement Vitamin D, Total, 25-OH Lab Routine Vitamin D deficiency Well adult exam 1 Occurrences starting 07/19/2022 until 07/19/2023 [facility] Comment on above: 1 Occurrences starti ng 07/19/2022 until 07/19/2023 Immunizations Immunization Date Immunization Notes Care Provider Tiffany stanley 04-03-2024 influenza, seasonal, injectable, preservative free Mela Walker NUTRITIONAL ASSISTANT-C Work Phone: [facility] 03-26-2023 influenza, injectabl e, quadrivalent, preservative free Dr. Priyanka Leonardo Work Phone: [facility] 03-26-2023 influenza virus vaccine, unspecified formulation Mela Walker CLASSIFIED AD CLERK Work Phone: [facility] 05-08-2022 influenza virus vaccine, unspecified formulation Mela Walker CLASSIFIED AD CLERK Work Phone: [facility] 04-22-2022 influenza, injectabl e, quadrivalent, preservative free [facility] 04-22-2022 influenza, seasonal, injectable [facility] 05-08-2021 influenza, injectabl e, quadrivalent, preservative free [facility] 05-08-2021 influenza, seasonal, injectable NUTRITIONAL ASSISTANT-C Bethanie Redick Work Phone: [facility] Work Phone: 05-08-2021 influenza, seasonal, injectable, preservative free Mela Walker CLASSIFIED AD CLERK Work Phone: [facility] 04-01-2021 Covid (Pfizer) NUTRITIONAL ASSISTANT-C Bethanie Re nitza Work Phone: [facility] 07-13-2020 Covid (Pfizer) [facility] 06-22-2020 Covid (Pfizer) [facility] 03-15-2020 influenza, injectabl e, quadrivalent, preservative free [facility] 03-15-2020 influenza, seasonal, injectable NUTRITIONAL ASSISTANT-C Bethanie Redick Work Phone: [facility] Work Phone: 03-15-2020 influenza, seasonal, injectable, preservative free Mela Walker CLASSIFIED AD CLERK Work Phone: [facility] 03-27-2019 influenza, injectabl e, quadrivalent, preservative free [facility] 03-27-2019 influenza, seasonal, injectable NUTRITIONAL ASSISTANT-C Bethanie Mario Work Phone: [facility] Work Phone: 03-27-2019 influenza, seasonal, injectable, preservative free Mela Walker CLASSIFIED AD CLERK Work Phone: [facility] 06-18-2015 diphtheria, tetanus toxoids and acellular pertussis vaccine [facility] 09-13-2011 hepatitis B vaccine, pediatric or pediatric/adolescent dosage [facility] 03-15-2011 hepatitis B vaccine, pediatric or pediatric/adolescent dosage [facility] 02-07-2011 hepatitis B vaccine, pediatric or pediatric/adolescent dosage [facility] 02-01-2011 tetanus toxoid, redu yarely diphtheria toxoid, and acellular pertussis vaccine, adsorbed [facility] 07-13-1993 measles, mumps and rubella virus vaccine [facility] 03-10-1987 diphtheria, tetanus toxoids and pertussis vaccine [facility] 03-10-1987 trivalent poliovirus vaccine, live, oral [facility] 09-13-1983 diphtheria, tetanus toxoids and pertussis vaccine [facility] 09-13-1983 measles, mumps and rubella virus vaccine [facility] 09-13-1983 trivalent poliovirus vaccine, live, oral [facility] 04-13-1982 diphtheria, tetanus toxoids and pertussis vaccine [facility] 1981 diphtheria, tetanus toxoids and pertussis vaccine [facility] 1981 trivalent poliovirus vaccine, live, oral [facility] 1981 diphtheria, tetanus toxoids and pertussis vaccine [facility] 1981 trivalent poliovirus vaccine, live, oral [facility] Payers Date Payer Category Payer Self-pay [id number] 2022 Managed Care (privat e) or private health insurance (indemnity), not otherwise specified [employer] [id number] 2022 Private Health Insurance [id number]. [id number] 2019 Unknown [id number] [id number]. [id number] 2019 Unknown 2019 Unknown [id number] 2016 Unknown [id number]. [id number] 2016 Unknown [id number] 1981 Unknown [id number] 2.0.1.758693.3.579.2. 903 1981 Unknown [id number] 20.1.729989.3.579.2. 90 1981 Unknown [id number] 2.840.1.498091.3.579.2 1981 Unknown [id number] 08.03.830.1.708917.3.579.2. 90 1981 Unknown [id number] .[id number] 90 1981 Unknown [id number] 2.840.1.606478.3.579.2. 90 1981 Unknown [id number] 90 Unknown [id number] Unknown [id number] Unknown [id number] 2.16.840.1.735699.3.579.2. 462 Unknown [id number] 2.16.840.1.947583.3.579.2. 462 Unknown [id number] 2.16.840.1.293987.3.579.2. 462 Unknown [id number] 2.16.840.1.887036.3.579.2. 462 Unknown [id number] 2.16.840.1.340916.3.579.2. 462 Unknown [id number] 2.16.840.1.579673.3.579.2. 462 Unknown [id number] 2.16.840.1.237924.3.579.2. 462 Unknown [id number] 2.16.840.1.491726.3.579.2. 462 Unknown [id number] 2.16.840.1.489411.3.579.2. 462 Unknown [id number] 2.16.840.1.556726.3.579.2. 462 Unknown [id number] 2.16.840.1.227770.3.579.2. 462 Social History Date Type Detail Facility Tobacco smoking stat [facility] Unknown if ever smoked [facility] Start: 1980 Sex Assigned At Not on file [facility] Start: 04-18-1999 End: 07-19-2022 Tobacco smoking status NMIS Current every day smoker [facility] Start: 04-18-1999 End: 01-17-2024 History of tobacco use Cigarette Smoker [facility] Start: 08-09-2018 End: 02-09-2022 Cigarettes smoked current (pack per day) - Reported [facility] Start: 08-08-2018 End: 02-09-2022 History SDOH Alcohol Frequency 2 [facility] Start: 08-09-2018 End: 02-09-2022 History SDOH Social Connections Phone 4 [facility] Start: 08-09-2018 End: 02-09-2022 History SDOH Social Connections Gnosticism 1 [facility] Start: 08-09-2018 End: 02-09-2022 History SDOH Social Connections Living 5 [facility] Start: 08-09-2018 End: 02-09-2022 History SDOH Physical Activity DPW 0 [facility] Start: 02-23-2019 End: 09-10-2024 Alcohol intake Current drinker of alcohol (finding) [facility] Start: 01-30-2022 End: 07-18-2022 Exposure to SARS-CoV-2 (event) Not sure [facility] Start: 01-11-2020 End: 03-13-2024 Tobacco use and exposure Never used [facility] Start: 06-26-2021 End: 04-18-2023 Tobacco smoking consumption unknown [facility] Start: 07-21-2019 Cigarettes [facility] Start: 1980 Sex Assigned At Female [facility] Start: 02-09-2022 History SDOH Social Connections Living 8 [facility] Start: 02-09-2022 End: 04-04-2023 Humiliation, Afraid, Rape, and Kick questionnaire [HARK] [facility] Within the last year , have you been afraid of your partner or ex-partner? No [facility] Are you now , , , , never or living with a partner? Living with partner [facility] How often to you hav e a [...] days [OSQ] Rather much [facility] (I/We) worried whelj er (my/our) food would run out before (I/we) got money to buy more. Never true [facility] Start: 08-09-2018 Gender identity Identifies as female gender (finding) [facility] Start: 08-09-2018 Sexual orientation Heterosexual (finding) [facility] Start: 03-13-2024 Tobacco smoking status NHIS Ex-smoker [facility] Start: 04-18-1999 End: 01-17-2024 History of tobacco use Current smoker [facility] Start: 12-08-2024 Tobacco smoking status NHIS Current Light tobacco smoker [facility] Goals Date Patient Goal Desired Activity /State Mental Status Date Assessment Result Facility 12-08-2024 Cognitive function Awake;Alert;A ppropriate;Fol lows Commands [facility] Work Phone: Clinical Notes 12-08-2020 to 12-08-2024 Note Date & Type Note Facility 12-08-2024 Discharge summary [facility] 12-08-2024 Radiology Diagnostic study note [facility] [address] [place], [place] [address] Chest 1 View (Portable) MR#: [id number] Acct: [id number] Name: FRIDA WIN Rep #: [id number] : 1980 F 44 From: Abisai Morgan MD PCP: FILIBERTO Cooper Status: REG ER Study:Chest 1 View (Portable) Date of Exam: 12/08/24 Exam# [id number] Ordering Dr: Ky Beckett DO PROCEDURE: CHEST [...] acute osseous process is seen. Reading Location: [place] [address] CC: FILIBERTO Walker; Dr. Deonte Beckett DO ~ Fur Polisher: Signed [facility] 10-14-2024 Evaluation note Diagnosis Onset Date Resolution Women's annual routine gynecological examination acute October 14, 2024 3:02pm [facility] Work Phone: 1(968) 419-664303-26-2025 Evaluation + Plan note* Assessment & Plan Note - Mela Walker, CLASSIFIED AD CLERK - 09/10/2024 11:47 AM EDTAssociated Problem(s): Depression As discussed within your appointment today, you are doing well on sertraline. I would like you to continue to take your medication(s) as ordered. If medication refills are needed, they have been sentto your pharmacy. [id number] Evaluation + Plan note* Assessment & Plan [...] supply, follow-up in the office as scheduled. [id number] Miscellaneous Notes* Assessment & Plan Note - [...] the office as scheduled. 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 [...] 4 days Stress: Stress Concern Present (02/09/2022) [employer] - Occupational Stress Questionnaire Feeling of Stress : Rather much Social Connections: Moderately Isolated (02/09/2022) Social Connection and Isolation Panel [NHANES] Frequency of Communication with Friends and Family: More than three times a week Frequency of Social Gatherings with Friends and Family: Once a week Attends Buddhist Services: Never Active Member of Clubs or [...] and Memory: Cognition normal. Judgment: Judgment normal. OARRS/JENNIFERxCHECK Report Received and Assessed: Mela Walker CNP [...] effects of the medications. 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 [...] Influenza Vaccine (1) 02/17/2024 COVID-19 Vaccine ( - 2023- season) 2024 Depression Screening/Follow-Up (PHQ-2/9) 03/13/2025 Wellness [...] 4 days Stress: Stress Concern Present (02/09/2022) [employer] - Occupational Stress Questionnaire Feeling of Stress : Rather much Social Connections: Moderately Isolated (02/09/2022) Social Connection and Isolation Panel [NHANES] Frequency of Communication with Friends and Family: More than three times a week Frequency of Social Gatherings with Friends and Family: Once a week Attends Buddhist Services: Never Active Member of Clubs or Organizations: No Attends Club or Organization Meetings: Never Marital Status: Living with partner Housing Stability: Low Risk (02/09/2022) Pattie (more content not included)...[facility]09-26-2024 Evaluation + Plan note* Assessment & [...] supply, follow-up in the office as scheduled. [id number] Evaluation + Plan note* Assessment & Plan Note - Mela Walker CNP - 03/13/2024 3:24 PM EDTAssociated Problem(s): Dyslipidemia, goal LDL below 100 I have sent Gildardovulysses into your pharmacy, this medication is a [...] medication is titrated to the maintenance dose. T [id number] Evaluation + Plan note* Assessment & Plan Note - Mela Walker CNP - 03/13/2024 3:24 PM EDTAssociated Problem(s): Screening mammogram for breast cancer Today I have ordered her mammogram for you to have completed. Please call and schedule this at yourearliest convenience. If an order was placed today, the hospital will contact you to schedule an appointment. [id number] Evaluation + Plan note* Assessment & Plan Note - Mela Walker CNP - 03/13/2024 3:24 PM EDTAssociated Problem(s): Well adult exam Doing well, denies complaints at this time. Health maintenance updated and reviewed with patient. It is recommended that you complete at least 150 minutes of cardiovascular activity weekly. [id number] Miscellaneous Notes* Assessment & Plan Note - [...] of cardiovascular activity weekly. 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 [...] 01/24/2024 Influenza Vaccine (1) 02/17/2024 COVID-19 Vaccine (4 - season) 2024 Wellness Visit 04/04/2024 There are [...] 4 days Stress: Stress Concern Present (02/09/2022) [employer] - Occupational Stress Questionnaire Feeling of Stress : Rather much Social Connections: Moderately Isolated (02/09/2022) Social Connection and Isolation Panel [NHANES] Frequency of Communication with Friends and Family: More than three times a week Frequency of Social Gatherings with Friends and Family: Once a week Attends Buddhist Services: Never Active Member of Clubs or [...] ear normal. Nose: Nose normal. Mouth/Throat: Lips: [place]. Mouth: Mucous membranes are moist. Pharynx: Oropharynx [...] (screening of osteoporosis) andcolonoscopy. 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 [...] 4 days Stress: Stress Concern Present (02/09/2022) [employer] - Occupational Stress Questionnaire Feeling of Stress : Rather much Social Connections: Moderately Isolated (02/09/2022) Social Connection and Isolation Panel [NHANES] Frequency of Communication with Friends and Family: More than three times a week Frequency of Social Gatherings with Friends and Family: Once a week Attends Buddhist Services: Never Active Member of Clubs or [...] Mother Depression Mother A (more content not included)...[facility]08-26-2024 NotePatient requesting medication be sent to [facility] [employer] [facility]. AUTHENTICATED BY MELA WALKER ON 02/11/2024 07:54:43[facility] 02-11-2024 History of Present illness Narrative* Mela Walker CNP - 02/11/2024 7:54 AM EDT Patient requesting medication be sent to [facility] in [place]. documented in this [id number] Evaluation + Plan note* Assessment & Plan Note - Mela Walker CNP - 10/16/2023 2:26 PM EDT Associated Problem(s): Depression As discussed within your appointment today, you are doing well on Zoloft, and Lamictal. I would like you to continue to take your medication(s) as ordered. If medication refills are needed, they havebeen sent to your pharmacy. [id number] Miscellaneous Notes* Assessment & Plan Note - [...] refills are needed, [facility] * Assessment & Plan Note - [...] the office as scheduled. documented in this [id number] Evaluation + Plan note* Assessment & Plan Note - Mela Walker CNP - 10/16/2023 2:25 PM EDT Associated Problem(s): Intractable migraine with aura without status migrainosus As discussed within your appointment today, you are doing well on Topamax. I would like you to continue to take your medication(s) as ordered. If medication refills are needed, they have been sent [facility]. [id number] Evaluation + Plan note* Assessment & Plan [...] supply, follow-up in the office as scheduled. 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 [...] 4 days Stress: Stress Concern Present (02/09/2022) [employer] - Occupational Stress Questionnaire Feeling of Stress : Rather much Social Connections: Moderately Isolated (02/09/2022) Social Connection and Isolation Panel [NHANES] Frequency of Communication with Friends and Family: More than three times a week Frequency of Social Gatherings with Friends and Family: Once a week Attends Buddhist Services: Never Active Member of Clubs or [...] Received and Assessed: Mela Walker CNP on 10/12/2023 1:55 PM Date controlled substance [...] refills are needed, they have been sent [facility]. Relevant Medications lamoTRIgine (LAMICTAL) 100 MG [...] effects of the medications. documented in this [id number] Evaluation + Plan note* Assessment & Plan Note - Mela Walker CNP - 07/05/2023 3:37 PM EST Associated Problem(s): ADHD I have ordered a 90 day supply of your Mydais. This is a controlled substance [place]. To have this medication refilled, you [...] supply, follow-up in the office as scheduled. [id number] Miscellaneous Notes* Assessment & Plan Note - Mela Walker CNP - 07/05/2023 3:37 PM ESTAssociated Problem(s): ADHD I have ordered a 90 day supply of your Mydais. This is a controlled substance which [place] [facility] [place]. To have this medication refilled, you [...] sent to your pharmacy. documented in this [id number] Evaluation + Plan note* Assessment & Plan Note - Mela Walker CNP - 07/05/2023 3:36 PM EST Associated Problem(s): Depression As discussed within your appointment today, you are doing well on Zoloft. I would like you to continue to take your medication(s) as ordered. If medication refills are needed, they have been sent to your pharmacy. [id number] Evaluation + Plan note* Assessment & Plan Note - Mela Walker CNP - 07/05/2023 3:36 PM ESTAssociated Problem(s): Vitamin D deficiency As discussed within your appointment today, you are doing well on vitamin D. I would like you to continue to take your medication(s) as ordered. If medication refills are needed, they have been sent to your pharmacy. [id number] Evaluation + Plan note* Assessment & Plan Note - Mela Walker CNP - 07/05/2023 3:35 PM ESTAssociated Problem(s): Intractable migraine with aura without status migrainosus As discussed within your appointment today, you are doing well on Nurtec. I would like you to continue to take your medication(s) as ordered. If medication refills are needed, they have been sent to your pharmacy. 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 [...] 4 days Stress: Stress Concern Present (02/09/2022) [employer] - Occupational Stress Questionnaire Feeling of Stress : Rather much Social Connections: Moderately Isolated (02/09/2022) Social Connection and Isolation Panel [NHANES] Frequency of Communication with Friends and Family: More than three times a week Frequency of Social Gatherings with Friends and Family: Once a week Attends Buddhist Services: Never Active Member of Clubs or [...] score (Vandana DK, et al., 2019) is: 1.9% Values used [...] effects of the medications. documented in this [id number] Evaluation + Plan note* Assessment & Plan Note - Mela Walker CNP - 04/04/2023 1:53 PM EDT Associated Problem(s): Well adult exam Doing well, denies complaints at this time. Health maintenance updated and reviewed with patient. It is recommended that you complete at least 150 minutes of cardiovascular activity weekly. [id number] Miscellaneous Notes* Assessment & Plan Note - [...] take this as ordered. documented in this [id number] Evaluation + Plan note* Assessment & Plan [...] supply, follow-up in the office as scheduled. [id number] Evaluation + Plan note* Assessment & Plan Note - Mela Walker CNP - 04/04/2023 1:50 PM EDTAssociated Problem(s): Iron deficiency I have sent an iron supplement into your pharmacy, please take this as ordered. 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 [...] 4 days Stress: Stress Concern Present (02/09/2022) [employer] - Occupational Stress Questionnaire Feeling of Stress : Rather much Social Connections: Moderately Isolated (02/09/2022) Social Connection and Isolation Panel [NHANES] Frequency of Communication with Friends and Family: More than three times a week Frequency of Social Gatherings with Friends and Family: Once a week Attends Buddhist Services: Never Active Member of Clubs or [...] (screening of osteoporosis) andcolonoscopy. documented in this [id number] Evaluation + Plan note* Assessment & Plan Note - Mela Walker CNP - 10/18/2022 2:12 PM EDT Associated Problem(s): Mood disorder (HCC) I have increased the Lamictal to 75mg daily, please let me know if you develop any side effects from this dose change. [id number] Miscellaneous Notes* Assessment & Plan Note - [...] the office as scheduled. documented in this [id number] Evaluation + Plan note* Assessment & Plan [...] supply, follow-up in the office as scheduled. 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 [...] 4 days Stress: Stress Concern Present (02/09/2022) [employer] - Occupational Stress Questionnaire Feeling of Stress : Rather much Social Connections: Moderately Isolated (02/09/2022) Social Connection and Isolation Panel [NHANES] Frequency of Communication with Friends and Family: More than three times a week Frequency of Social Gatherings with Friends and Family: Once a week Attends Buddhist Services: Never Active Member of Clubs or [...] appearance. HENT: Nose: Nose normal. Mouth/Throat: Lips: Java. Pulmonary: Effort: Pulmonary effort is normal. Musculoskeletal: [...] data found The 10-year ASCVD risk score (Vanadna LOWE, et al., 2019) is: 1.7% Values [...] Goals None Video Visit [facility] [address] [facility] [address] [place] [address] Via Real-time Synchronous Audiovisual [facility] 10/18/2022 Mela Walker CNP Provider Location: [facility] PCP, or provider's home Patient Location Ticket Chopper Assembler: None Patient Location: Work Patient: Frida Win [...] there are inherent diagnostic limitations compared to kofj-lc-bljg evaluations. We elected to proceed with the video visit telemedicine consultation. For any new medications prescribed today, patient was educated about indications for the medication, how to take the medication and potential side effects of the medications. documented in this [id number] Evaluation + Plan note* Assessment & Plan Note - Mela Walker CNP - 07/25/2022 1:48 PM EST Associated Problem(s): Mood disorder (HCC) As discussed within your appointment today, you are doing well on Lamictal, and Zoloft. I would like you to continue to take your medication(s) as ordered. If medication refills are needed, they havebeen sent to your pharmacy. [id number] Evaluation + Plan note* Assessment & Plan [...] supply, follow-up in the office as scheduled. [id number] Evaluation + Plan note* Assessment & Plan Note - Mela Walker CNP - 07/25/2022 1:48 PM ESTAssociated Problem(s): Intractable migraine with aura without status migrainosus As discussed within your appointment today, you are doing well on Topamax. I would like you to continue to take your medication(s) as ordered. If medication refills are needed, they have been sent [facility]. [id number] Miscellaneous Notes* Assessment & Plan Note - [...] refills are needed, they have been sent [facility]. 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 [...] Friends and Family: Once a week Attends Buddhist Services: Never Active Member of Clubs or [...] data found The 10-year ASCVD risk score (aVndana LOWE, et al., 2019) is: 1.8% Values [...] refills are needed, they have been sent [facility]. Relevant Medications lamoTRIgine (LAMICTAL) 25 MG [...] effects of the medications. documented in this [id number] Telephone encounter Note* Telephone Encounter - Mela Walker CNP - 06/28/2022 3:44 PM EST Please call the patient to schedule an appointment. She would like one in Jul. Thank you [id number] Miscellaneous Notes* Telephone Encounter - Mela Walker CNP - 06/28/2022 3:44 PM EST Please call the patient to schedule an appointment. She would like one in Jul. Thank you documented in this [id number] Evaluation + Plan note* Assessment & Plan [...] supply, follow-up in the office as scheduled. [id number] Miscellaneous Notes* Assessment & Plan Note - [...] and schedule your appointment. [facility] ( [facility]) [address] [place] [id number] * Assessment & Plan Note - Mela Walker CNP - 02/23/2022 9:39 PM EDT Associated Problem(s): Intractable migraine with aura without status migrainosus With your worsening migraines, I would like you to start taking topamax as ordered, and Nurtec as needed. It is my hope that with these two medications, we can gain control over your migraines. documented in this [id number] Evaluation + Plan note* Assessment & Plan Note - Mela Walker CNP - 02/23/2022 9:40 PM EDT Associated Problem(s): Depression I would like you to start taking Zoloft. When you start this medication stop taking the Prozac. Please contact the office if you do not notice any improvement in your mood. [id number] Evaluation + Plan note* Assessment & Plan Note - Mela Walker CNP - 02/23/2022 9:40 PM EDTAssociated Problem(s): Screening mammogram for breast cancer It is time to get your Mammogram done. Please call and schedule your appointment. [facility] ( [facility]) [address] [place] [address] [id number] Evaluation + Plan note* Assessment & Plan Note - Mela Walker CNP - 02/23/2022 9:39 PM EDTAssociated Problem(s): Intractable migraine with aura without status migrainosus With your worsening migraines, I would like you to start taking topamax as ordered, and Nurtec as needed. It is my hope that with these two medications, we can gain control over your migraines. 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 [...] Friends and Family: Once a week Attends Buddhist Services: Never Active Member of Clubs or [...] and schedule your appointment. [facility] ( [facility]) [address] [place], [place] [id number] Relevant Orders Mammography Screening Ortiz Bilateral Goals None For any new medications prescribed today, patient was educated about indications for the medication, how to take the medication and potential side effects of the medications. documented in this [id number] Instructions* Patient Instructions* Mela Walker CNP - [...] to: Get organized. A daily organizer or merchandise planner can help these adults organize their [...] Log into your personal health record on [email or web address] and enter Z848 in the Education box to learn more about Learning About Attention Deficit Hyperactivity Disorder (ADHD) in Adults. Current as of: December 01, 2020 Content Version: 13.1 5547-4335 [employer]. Care instructions adapted under license by your healthcare professional. If you have questions about a medical condition or this instruction, always ask your healthcare professional. [employer] disclaims any warranty or liability for your use of this information. documented in this [id number] Miscellaneous Notes* Assessment & Plan Note - [...] the office as scheduled. 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 [...] appearance. HENT: Nose: Nose normal. Mouth/Throat: Lips: Java. Pulmonary: Effort: Pulmonary effort is normal. Musculoskeletal: [...] Goals None Video Visit [facility] [address] [facility] [address] [place] [address] Video Visit [facility] 06/06/2021 Mela Walker CNP Provider Location: opg office or provider's home Patient Location Ticket Chopper Assembler: None Patient Location: Patient's Home Patient: Frida [...] there are inherent diagnostic limitations compared to umxn-ac-pntz evaluations. We elected to proceed with the video visit telemedicine consultation. For any new medications prescribed today, patient was educated about indications for the medication, how to take the medication and potential side effects of the medications. documented in this [id number] Instructions* Patient Instructions* Mela Walker CNP - [...] Log into your personal health record on [email or web address] and enter P072 in the Education box to learn more about Well Visit, Ages 18 to 50: Care Instructions. Current as of: July 29, 2020 Content Version: 13.0 [employer]. Care instructions adapted under license by your healthcare professional. If you have questions about a medical condition or this instruction, always ask your healthcare professional. [employer] disclaims any warranty or liability for your use of this information. documented in this [id number] Miscellaneous Notes* Assessment & Plan Note - Mela Walker CNP - 04/15/2021 9:07 AM EDT Associated Problem(s): Well adult exam Doing well, denies complaints at this time. Health maintenance updated and reviewed with patient. It is recommended that you complete at least 150 minutes of cardiovascular activity weekly. documented in this [id number] History of Present illness Narrative* Mela Walker [...] Friends and Family: Not on file Attends Buddhist Services: Not on file Active Member of [...] 38.6 kg/m . The ASCVD Risk score ([place] SHEYLA Wilkerson, et al., 2013) failed to calculate for [...] (screening of osteoporosis) andcolonoscopy. documented in this [id number] Instructions* Patient Instructions* Mela Walker CNP - [...] to: Get organized. A daily organizer or merchandise planner can help these adults organize their [...] Log into your personal health record on [email or web address] and enter Z848 in the Education box to learn more about Learning About Attention Deficit Hyperactivity Disorder (ADHD) in Adults. Current as of: December 01, 2020 Content Version: 13.0 6527-9211 [employer]. Care instructions adapted under license by your healthcare professional. If you have questions about a medical condition or this instruction, always ask your healthcare professional. [employer] disclaims any warranty or liability for your use of this information. documented in this [id number] Miscellaneous Notes* Assessment & Plan Note - [...] the office as scheduled. 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 [...] Friends and Family: Not on file Attends Buddhist Services: Not on file Active Member of [...] appearance. HENT: Nose: Nose normal. Mouth/Throat: Lips: Java. Pulmonary: Effort: Pulmonary effort is normal. Musculoskeletal: [...] Goals None Video Visit [facility] [address] [facility] [address] [place] [address] Video Visit [facility] 03/10/2021 Mela Walker CNP Provider Location: opg office or provider's home Patient Location Ticket Chopper Assembler: None Patient Location: Patient's Home Patient: Frida [...] there are inherent diagnostic limitations compared to nvmm-ek-xqck evaluations. We elected to proceed with the video visit telemedicine consultation. For any new medications prescribed today, patient was educated about indications for the medication, how to take the medication and potential side effects of the medications. documented in this [id number] Miscellaneous Notes* Assessment & Plan Note - [...] is working for you. documented in this [id number] Instructions* Patient Instructions* Mela Walker CNP - 12/08/2020 11:11 AM EDT Images [...] to: Get organized. A daily organizer or merchandise planner can help these adults organize their [...] Log into your personal health record on [email or web address] and enter Z848 in the Education box to learn more about Learning About Attention Deficit Hyperactivity Disorder (ADHD) in Adults. Current as of: March 10, 2020 Content Version: 12.8 [employer]. Care instructions adapted under license by your healthcare professional. If you have questions about a medical condition or this instruction, always ask your healthcare professional. [employer] disclaims any warranty or liability for your [...] do something you enjoy. Go to a [employer] movie, or take a walk or hike. [...] the numbers for these national suicide hotlines: 8-369-293-TALK ( ) and 1-829-VVISSEO ( ). If you or someone you [...] Log into your personal health record on [email or web address] and enter P754 in the Education box to learn more about Anxiety Disorder: Care Instructions. Current as of: March 10, 2020 Content Version: 12.8 [email or web address]. Care instructions adapted under license by your healthcare professional. If you have questions about a medical condition or this instruction, always ask your healthcare professional. [email or web address] disclaims any warranty or liability for your use of this information. 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 [...] Social Gatherings with Friends and Family: Attends Buddhist Services: Active Member of Clubs or Organizations: [...] complaint+Reason for visit Narrative * Chief Complaint [facility] SNF-COVID 19 REQ UIRED TESTING COVID TEST COVID-19 [facility] SNF-COVID 19 REQUIRED TESTING [facility] SNF-COVID 19 REQUIRED TESTING [facility] SN[facility]-COVID 19 REQUIRED TESTING Reason for Visit Common cold Encounter for screening for COVID-19 [facility] Work Phone: Chief complaint+Reason for visit Narrative* Chief Complaint COVID TEST COVID-19 [facility] SNF-COVID 19 REQUIRED TESTING [facility] SN[facility]-COVID 19 REQUIRED TESTING [facility] SNF-COVID 19 REQUIRED TESTING [facility] SNF-COVID 19 REQUIRED TESTING Reason for Visit Common cold Encounter for screening for COVID-19 [facility] Work Phone: Discharge summary Author Deonte Beckett [facility] Note Date/Time December 08, 2024 11:1 9am [facility] Medical Records Department [address] [place] [address] Emergency Department Summary 12/08/24 MR#: [id number] Acct: [id number] Name: FRIDA WIN Rep #:[id number] : 1980 44 From: Deonte Beckett [...] notes that this is not unusual forher. 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 NIH is [...] feel this less likely based on revised Nekoma score, pancreatitis, orthostatic hypotension, vasovagal syncope/near syncope. Once workup is obtained reviewed she will be reevaluated. Orthostatic vital signs will be checked. Patient be given IV fluids for hydration. Patient be given Reglan. Nekoma Score (Revised) for Pulmonary Embolism from [employer] on 12/08/2024 All calculations should be rechecked [...] 76.0 H Lymph % (Auto) 17.8 L [place] % (Auto) 4.0 Eos % (Auto) 1.1 [...] acute osseous process is seen. Reading Location: [place] [address] Discharge Plan Triage Chief Complaint: Dizziness ED [...] mg capsule, sprinkle PO Primary Care Provider: Mela Walker Referrals: Mela Walker NP-C [Primary Care Provider] - Activity Restrictions/Additional Instructions: Follow-up with your doctor in the outpatient setting. Return with worsening symptoms or concerns. Your cardiac workup did not show any acute findings your EKG was normal your chest x-ray did not show any acute findings either. Return with worsening symptoms or any other concerns. Print Language: Zimbabwean Disposition Disposition: Home, Self Care What to do if you have Problems For any increased pain, shortness of breath, bleeding, nausea or vomiting, chestpain, or any unexpected problems, contact your Primary Care Provider. Call [facility] ([phone]) or report to the closest Emergency Room. Call 911 if necessary. 12/08/24 1119 <Electronically signed by Deonte Beckett DO> Cosigner Signature (if applicable): CC: FILIBERTO Walker ~ Signed [facility] Work Phone: evaluation note* Diagnosis Attention deficit hyperactivity disorder (ADHD), [...] acute Encounter for screening for COVID-19 acute [facility] Work Phone: evaluation noteNo assessment information available [facility] Work Phone: evaluation note* Diagnosis Depression, [...] and somatic dysfunction of thoracic region acute [facility] Work Phone: Evaluation note* Diagnosis Onset [...] of thoracic region acute Back pain noneactive [facility] Work Phone: Evaluation note* Diagnosis Attention [...] predominantly inattentive type documented in this encounter [facility] note* Diagnosis Encounter for well adult exam [...] predominantly inattentive type [facility] [place] [facility] Diagnosis Encounter for well adult exam [...] general medical examination at a health care [facility] Attention deficit hyperactivity disorder (ADHD), predominantly inattentive type Therapeutic drug monitoring Encounter for therapeutic drug monitoring Screening mammogram for breast cancer Morbid obesity with BMI of 40.0-44.9, adult (HCC) Dyslipidemia, goal LDL below 100 Vitamin D deficiency Depression, unspecified depression type Attention deficit hyperactivity disorder (ADHD), predominantly inattentive type [facility] Diagnosis Encounter for well adult exam [...] general medical examination at a health care [facility] Iron deficiency Disorders of iron metabolism Attention [...] general medical examination at a health care [facility] Attention deficit hyperactivity disorder (ADHD), predominantly inattentive type Therapeutic drug monitoring Encounter for therapeutic drug monitoring Screening mammogram for breast cancer Morbid obesity with BMI of 40.0-44.9, adult (HCC) Dyslipidemia, goal LDL below 100 Attention deficit hyperactivity disorder (ADHD), predominantly inattentive type- Primary Depression, unspecified depression type [facility] Diagnosis Encounter for well adult exam [...] general medical examination at a health care [facility] Intractable migraine with aura without status [...] predominantly inattentive type [facility] instructions Additional Instructions Follow-up with your doctor in the outpatient setting. Return with worsening symptoms or concerns. Your cardiac workup did not show any acute findings your EKG was normal your chest x-ray did not show any acute findings either. Return with worsening symptoms or any other concerns.[facility] Work Phone: Instructions* Attachments The following attachments cannot be sent through Care Everywhere. * ADHD: Adults: General Info (Zimbabwean) * Depression: Chronic Disease (Zimbabwean) * Migraine Headache (Zimbabwean) [facility] Attachments The following attachments cannot be sent through Care Everywhere. * ADHD: Adults: General Info ([place]imbabwean) [facility]* Attachments The following attachments cannot be sent through Care Everywhere. * Well Visit: 18 to 65 Years (Zimbabwean) * ADHD: Adults: General Info (Zimbabwean) [facility]* Attachments The following attachments cannot be sent through Care Everywhere. * Depression: Chronic Disease (Zimbabwean) * Vitamin D: General Info (Zimbabwean) * ADHD: Adults: General Info (Zimbabwean) documented in this [facility]OhioHealthInstructions* Attachments The following attachments cannot be sent through Care Everywhere. * Migraine Headache (Zimbabwean) * Depression: Chronic Disease (Zimbabwean) * ADHD: Adults: General Info (Zimbabwean) documented in [facility]Inst[facility]* Attachments The following attachments cannot be sent through Care Everywhere. * Well Visit: 18 to 65 Years (Zimbabwean) * ADHD: Adults: General Info (Zimbabwean) documented in this [facility]OhioHealthInstructions* Attachments The following attachments cannot be sent through Care Everywhere. * ADHD: Adults: General Info (Zimbabwean) * Depression: Treatment (Zimbabwean) documented in this encounterOhioHealthReason for referral (narrative)No reason for referral information [facility]WCh[facility] Work Phone: Summary Purpose Family History No Family History Records Found Relationship Condition Age at Onset Recorded Date/T bing mother Anemia Unknown Anxiety Unknown Rheumatoid arthritis Unknown Depression Unknown Hypertension Unknown Disorder of endocrine system Unknown Mental disorder Unknown Osteoporosis Unknown brother Asthma Unknown grandmother Arthritis Unknown sister Heterozygous factor V Leiden mutation Unk nown aunt Malignant neoplasm of cervix Unknown father Diabetes mellitus Unknown grandmother Parkinson's disease Unknown Advance Directives No Advanced Directives Records FoundDocuments on File Type Date Recorded Patient Manager Internship Expl anation Advance Directives and Living Will Documents on File Type Date Recorded Patient Manager Internship Expl anation Advance Directives and Livin g Will 10/03/2019 8:18 AM Advance Directive Response Recorded Date/ Time Living Will No June 26 2 1:24pm Power of Wash Rack Operator No June 26 1:24pm Advance Directive Response Recorded Date/ Time Living Will No June 26 2 12:24pm Power of Wash Rack Operator No June 26 022 12:24pm Advance Directive Response Recorded Date/ Time Do you have a Healthcare Power of Wash Rack Operator? No December 08, 2024 8:04am Instructions * Patient Instructions* Barbara Castillo, CLASSIFIED AD CLERK - 08/09/2018 8:51 AM EST Problem List [...] is very common. 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 Many adults don't realize they have it [...] Log into your personal health record on [email or web address] and enter B196 in the Education box to learn more about Attention Deficit Hyperactivity Disorder (ADHD) in Adults: Care Instructions. Current as of: February 26, 2018 Content Version: 04.26 THREAT STREAM. Care instructions adapted under license by your healthcare professional. If you have questions about a medical condition or this instruction, always ask your healthcare professional. [employer] disclaims any warranty or liability for your [...] is very common. 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 Many adults don't realize they have it [...] Log into your personal health record on [email or web address] and enter [email or web address] in the Education box to learn more about Attention Deficit Hyperactivity Disorder (ADHD) in Adults: Care Instructions. Current as of: February 26, 2018 Content Version: 11.9 4519-9752 THREAT STREAM. Care instructions adapted under license by your healthcare professional. If you have questions about a medical condition or this instruction, always ask your healthcare professional. [employer] disclaims any warranty or liability for your [...] is very common. 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 Many adults don't realize they have it [...] Log into your personal health record on [email or web address] and enter [email or web address] in the Education box to learn more about Attention Deficit Hyperactivity Disorder (ADHD) in Adults: Care Instructions. Current as of: February 26, 2018 Content Version: 12.0 6045-2714 THREAT STREAM. Care instructions adapted under license by your healthcare professional. If you have questions about a medical condition or this instruction, always ask your healthcare professional. TH[employer]REAM disclaims any warranty or liability for your [...] is very common. 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 Many adults don't realize they have it [...] Log into your personal health record on [email or web address] and enter [email or web address] in the Education box to learn more about Attention Deficit Hyperactivity Disorder (ADHD) in Adults: Care Instructions. Current as of: February 26, 2018 Content Version: 12.1 6730-9027 THREAT STREAM. Care instructions adapted under license by your healthcare professional. If you have questions about a medical condition or this instruction, always ask your healthcare professional. TH[employer] disclaims any warranty or liability for your [...] is very common. 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 Many adults don't realize they have it [...] Log into your personal health record on [email or web address] and enter [email or web address] in the Education box to learn more about Attention Deficit Hyperactivity Disorder (ADHD) in Adults: Care Instructions. Current as of: November 12, 2018 Content Version: 12.3 4039-1578 THREAT STREAM. Care instructions adapted under license by your healthcare professional. If you have questions about a medical condition or this instruction, always ask your healthcare professional. TH[employer] disclaims any warranty or liability for your [...] time. I will review your labs via Fliggo or the office will with your results. [...] is very common. 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 Many adults don't realize they have it [...] Log into your personal health record on [email or web address] and enter [email or web address] in the Education box to learn more about Attention Deficit Hyperactivity Disorder (ADHD) in Adults: Care Instructions. Current as of: July 18, 2019 Content Version: 12.5 THREAT STREAM. Care instructions adapted under license by your healthcare professional. If you have questions about a medical condition or this instruction, always ask your healthcare professional. TH[employer]REAM disclaims any warranty or liability for your [...] is very common. 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 Many adults don't realize they have it [...] Log into your personal health record on [email or web address] and enter [email or web address] in the Education box to learn more about Attention Deficit Hyperactivity Disorder (ADHD) in Adults: Care Instructions. Current as of: March 10, 2020 Content Version: 12.7 THREAT STREAM. Care instructions adapted under license by your healthcare professional. If you have questions about a medical condition or this instruction, always ask your healthcare professional. TH[employer]AT [employer]REAM disclaims any warranty or liability for your [...] medicationhas been prescribed by her psychologist in [place] up to this point. She would like to have this office take over her ADHD care so she does not have to drive clear to [place] monthly. ADHD- Symptoms began 20-30 years ago [...] HCl 0.1 MG tablet Commonly known as: LUZ Take 1 (one) tablet (0.1 mg total) by mouth nightly as needed . 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 She [...] Gets together: Three times a week Attends anglican service: Never Active member of club or [...] this chart may have been created with [employer] voice recognition software. 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 She [...] Gets together: Three times a week Attends anglican service: Never Active member of club or [...] time. I will review your labs via Fliggo or the office will with your results. [...] this chart may have been created with [employer] voice recognition software. Occasional wrong-word or sound-like [...] covid. 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 She [...] Gets together: Three times a week Attends anglican service: Never Active member of club or [...] this chart may have been created with [employer] voice recognition software. Occasional wrong-word or sound-like [...] for breast cancer Procedures Mammography Screening Ortiz Mela Palmer, MARYA [address] [place] [id number] Referral ID Status Reason Start Date Expiration Date V isits Requested Visits Authorized [id number] Authorized 02/10/2022 02/10/2023 1 1 Referral ID Status Reason Start Date Expiration Date V isits Requested Visits Authorized [id number] Authorized 03/13/2024 03/13/2025 1 1 Chief Complaint and Reason for Visit Chief Complaint [facility] SNF-COVID 19 REQ UIRED TESTING [facility] SNF-COVID 19 REQUIRED TESTING [facility] SNF-COVID 19 REQUIRED TESTING Chief Complaint [facility] SNF-COVID 19 REQ UIRED TESTING [facility] SNF-COVID 19 REQUIRED TESTING Chief Complaint SCREENING [...] Back pain Chief Complaint Admit Date 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) * [facility] EMPLOYEE* October 14, 2024 3:02pm DIZZINESS December 08, 2024 7:11 am Reason for Visit Admit Date Women's annual routine gynecological exa mination October 14, 2024 3:02pm Additional Source Comments INFORMATION SOURCE (unrecogn ized section and content) DATE CREATED AUTHOR 02/16/2018 [facility] DATE CREATED AUTHOR AUTHOR'S ORGANIZ ATION 11/20/2018 [facility] DATE CREATED AUTHOR AUTHOR'S ORGANIZ ATION 10/28/2021 [facility] DATE CREATED AUTHOR AUTHOR'S ORGANIZ ATION 12/11/2024 [facility] DATE CREATED AUTHOR AUTHOR'S ORGANIZ ATION 01/21/2025 [facility] Reason for Visit (unrecogniz ed section and [...] time. I will review your labs via Fliggo or the office will with your results. [...] Karlo Good MD Attending Provider, Referring Pr ovider Active Team Status: Inactive Member Role Status Dates DENISE CANO Primary Care Provide r, Attending Provider, Referring Provider Active Team Status: Inactive Member Role Status Dates DENISE CANO Attending Provider, Referring Provider A ctive Team Status: Active Member Role Status Dates DENISE CANO Primary Care Provider Active Health Risk Assessment Attending Provider, Referring P angelica Active Program Director Scouting Relationship Specialty Start Date End Date Mela Walker CNP [address] [place], [place] [phone] PCP - General Nurse Practitioner 08/11/20 Program Director Scouting Relationship Specialty Start Date End Date Mela Walker CNP [address] [place] [address] PCP - General Nurse Practitioner 08/11/20 Mela Walker CNP [address] [place] [id number] PCP - BALDEV Attributed Provider - MMO Commercial 07/19/19 06/17/50 Program Director Scouting Relationship Specialty Start Date End Date Mela Walker, CLASSIFIED AD CLERK [address] [place] [address], [place] [address] PCP - General Nurse Practitioner 08/11/20 Mela Walker, CLASSIFIED AD CLERK [address] [place] [address], [place] [address] PCP - BALDEV Attributed Provider - MMO Commercial 07/19/19 06/17/50 Program Director Scouting Relationship Specialty Start Date End Date Mela Walker, MARYA [address] [place] [address], [place] [address] PCP - General Nurse Practitioner 08/11/20 Mela Walker, CLASSIFIED AD CLERK [address] [place] [address], [place] [address] PCP - BALDEV Attributed Provider - MMO Commercial 07/19/19 06/17/50 Program Director Scouting Relationship Specialty Start Date End Date Mela Walker, CLASSIFIED AD CLERK [address] [place] [address], [place] [address] PCP - General Nurse Practitioner 08/11/20 Mela Walker, CLASSIFIED AD CLERK [address] [place] [address], [place] [address] PCP - BALDEV Attributed Provider - MMO Commercial 07/19/19 06/17/50 Program Director Scouting Relationship Specialty Start Date End Date Mela Walker, CLASSIFIED AD CLERK [address] [place] [address], [place] [address] PCP - General Nurse Practitioner 08/11/20 Mela Walker, CLASSIFIED AD CLERK [address] [place] [address], [place] [address] PCP - BALDEV Attributed Provider - MMO Commercial 07/19/19 06/17/50 Team Status: Active Member Role Status Dates MELA WALKER Primary Care Provider Active Team Status: Inactive Member Role Status Dates DENISE CANO Primary Care Provider Active Dr. Karlo Good MD Attending Provider Active Program Director Scouting Relationship Specialty Start Date End Date Mela Walker, CLASSIFIED AD CLERK [address] [place] [id number] PCP - General Nurse Practitioner 08/11/20 WalkerMela Lima, CLASSIFIED AD CLERK [address] [place] [address] PCP - BALDEV Attributed Provider - MMO Commercial 07/19/19 06/17/50 Program Director Scouting Relationship Specialty Start Date End Date Mela Walker CLASSIFIED AD CLERK [address] [place] [address] PCP - General Nurse Practitioner 08/11/20 Program Director Scouting Relationship Specialty Start Date End Date Mela Walker CLASSIFIED AD CLERK [address] [place] [address] PCP - General Nurse Practitioner 08/11/20 Program Director Scouting Relationship Specialty Start Date End Date Mela Walker CNP [address] [place] [address] PCP - General Nurse Practitioner 08/11/20 Program Director Scouting Relationship Specialty Start Date End Date Mela Walker CLASSIFIED AD CLERK [address] [place] [address] PCP - General Nurse Practitioner 08/11/20 Program Director Scouting Relationship Specialty Start Date End Date Mela Walker CLASSIFIED AD CLERK [address] [place] [address] PCP - General Nurse Practitioner 08/11/20 Program Director Scouting Relationship Specialty Start Date End Date Walker Melaulysses Darby CNP [address] [place] [address], [place] [address] PCP - General Nurse Practitioner 08/11/20 Program Director Scouting Relationship Specialty Start Date End Date Walker Mela GrullonMARYA jimenez [address] [place] [address], [place] [address] PCP - General Nurse Practitioner 08/11/20 Program Director Scouting Relationship Specialty Start Date End Date Mela Walker CNP [address] [place] [address], [place] [address] PCP - General Nurse Practitioner 08/11/20 Program Director Scouting Relationship Specialty Start Date End Date Denise Mela GrullonMARYA jimenez [address] [place] [address], [place] [address] PCP - General Nurse Practitioner 08/11/20 Program Director Scouting Relationship Specialty Start Date End Date Mela Walker CNP [address] [place] [address], [place] [address] PCP - General Nurse Practitioner 08/11/20 Program Director Scouting Relationship Specialty Start Date End Date Mela Walker CNP [address] [place] [address], [place] [address] PCP - General Nurse Practitioner 08/11/20 Program Director Scouting Relationship Specialty Start Date End Date Mela Walker CNP [address] [facility] [place] [address] PCP - General Nurse Practitioner 08/11/20 Team Status: Active Member Role Status Dates Mela Walker NUTRITIONAL ASSISTANT-C Primary Care Provider Active Team Status: Inactive Member Role Status Dates Mela Walker NUTRITIONAL ASSISTANT-C Primary Care Provider Active Start: October 14, 2024 End: October 14, 2024 Mela Walker NP-C Referring Provider Active St art: October 14, 2024 End: October 14, 2024 FILIBERTO Bradshaw Attending Provider Active Start: October 14, 2024 End: October 14, 2024 Team Status: Inactive Member Role Status Dates Mela Walker NUTRITIONAL ASSISTANT-C Primary Care Provider Active Start: December 08, 2024 End: December 08, 2024 Dr. Deonte Beckett , Emergency Provider Active Start: December 08, 2024 End: December 08, 2024 Program Director Scouting Relationship Specialty Start Date End Date Mela Walker CNP [facility] [place] [address] PCP - General Nurse Practitioner 08/11/20 Team Status: Active Member Role/Relationship Status Dates Mela Walker NP-C Primary Care Provider Active Team Status: Inactive Member Role/Relationship Status Dates Mela Walker NUTRITIONAL ASSISTANT-C Primary Care Provider Active Start: October 14, 2024 End: October 14, 2024 FILIBERTO Cooper Referring Provider Active St art: October 14, 2024 End: October 14, 2024 FILIBERTO Bradshaw Attending Provider Active Start: October 14, 2024 End: October 14, 2024 Team Status: Inactive Member Role/Relationship Status Dates Mela Walker NP-C Primary Care Provider Active Start: December 08, 2024 End: December 08, 2024 Dr. Deonte Beckett , Attending Provider Active Start: December 08, 2024 End: December 08, 2024 Dr. Deonte Beckett DO Emergency Provider Active Start: December 08, 2024 End: December 08, 2024 Team Status: Inactive Member Role/Relationship Status Dates Mela Walker NUTRITIONAL ASSISTANT-C Primary Care Provider Active Start: January 12, 2025 End: January 12, 2025 RYAN CooperC Attending Provider Active St art: January 12, 2025 End: January 12, 2025 FILIBERTO Cooper Referring Provider Active St art: January 12, 2025 End: January 12, 2025 Goals (unrecognized section and content) Goals may [...] BE BASED ON THE PRIMARY CLINICAL RECORDS. [employer] provides no warranty or guarantee of the accuracy or completeness of information in this document.
[2025-01-27 19:08] LABS: QNTFERON TB Mitogen Value > 10.00 IU/mL (.); QNTFERON TB Nil Value 0.03 IU/mL (.); QNTFERON TB1+ Ag Value 0.03 IU/mL (.); QNTFERON TB2+ Ag Value 0.04 IU/mL (.); QNTIFERON TB Positive Criteria Negative (Negative)
== END | disposition home or self-care (01) ==
LOC: LAB 06:33
PROVIDERS: PCP Nurse Practitioner Family; Referring Provider Physician Assistant Medical; Visit Provider Physician Assistant Medical
DX: L73.2 Hidradenitis suppurativa (principal)
CPT/HCPCS: 36415; 86480

== ENCOUNTER → 2025-06-03 | Outpatient (CLI) | payer OTHER, SELFPAY ==
--- NOTE | 2025-06-03 07:17 | BI_ITS ---
EXAM: SCRN MAMM (CAD)W/MAYANK BILAT DATE: 06/03/2025 CLINICAL HISTORY: F, Age 44 y/o , SCREENING Grandmothers with breast cancer. TECHNIQUE: Procedure Code: [id number] Modality: MG Procedure: SCRN MAMM (CAD)W/MAYANK BILAT COMPARISON: Prior exam(s) dated March 21, 2024.. FINDINGS: TISSUE DENSITY: The breasts are extremely dense, which lowers the sensitivity of mammography. Bilateral Breast Mammographic Findings: No significant masses, calcifications or other abnormalities are identified. Stable bilateral fat containing axillary lymph nodes. No suspicious masses, areas of developing architectural distortion, or suspicious calcifications. There has been no significant interval change. BI/SCRN MAMM (CAD)W/MAYANK BILAT IMPRESSION: Stable bilateral screening mammogram. OVERALL FINAL ASSESSMENT BI-RADS 2: BENIGN RECOMMENDATION: Routine annual follow-up in 1 Year Additional Recommendation none A letter with findings and recommendations will be mailed to the patient. Reading Location: [facility]
--- OUTSIDE RECORDS SUMMARY | 2025-06-03 07:19 | XMS RPT_ITS | CCD ---
Author Organization [facility] Care Team Providers Care Internet Media Planner Name Role Phone Unavailable Unavailable Unavailable Abisai Wyman Unavailable Unavailable Abisai Wyman Unavailable Unavailable Barbara Castillo Primary Care Provider [phone] Barbara Cruz Primary Care Provider BARBARA CRUZ Admitting Unavailable BARBARA CRUZ Primary Care Unavailable Barbara Cruz Primary Care Provider [phone] Required, No Pcp Unavailable Unavailable Jenny Giang Unavailable Unavailable Walker GEOGRAPHY TEACHER, Mela Lima Primary Care Provider Walker GEOGRAPHY TEACHER, Mela Lima Primary Care Provider Walker GEOGRAPHY TEACHER, Mela Lima Unavailable Walker GEOGRAPHY TEACHER, Mela Lima Unavailable Deonte Dsouza Unavailable Mario BRUSH WASHER-C Bethanie Attending Provider [phone] Dr. Alejandro Sandhu Attending Provider Walker GEOGRAPHY TEACHER, Mela Lima Primary Care Provider Walker GEOGRAPHY TEACHER, Mela Lima Unavailable Walker GEOGRAPHY TEACHER, Mela Lima Primary Care Provider Dr. Priyanka Leonardo Attending Provider [phone] Dr. Priyanka Leonardo Attending Provider [phone] Walker GEOGRAPHY TEACHER, Mela Lima Primary Care Provider Denise BRUSH WASHER-C, Mela Primary Care Provider Denise BRUSH WASHER-C, Mela Referring Provider Krys BRUSH WASHER-CUyen Attending Provider [phone] Dr. Deonte Beckett DO Emergency Provider Dr. Deonte Beckett DO Attending Provider Denise BRUSH WASHER-C, Mela Attending Provider [phone] Kirk Cuellar Attending Provider Kirk Cuellar Referring Provider [phone] Assessment, Health Risk Attending Provider Unava ilable Assessment, Health Risk Referring Provider Unava ilable Dossi SHEYLA, Dr. Mathew Attending Provider [phone] WALKER, MELA LIMA Attending Unavailable WALKER, MELA [...] Unavailable WALKER, MELA LIMA Primary Care Unavailable Walker BRUSH WASHER-C, Mela Primary Care Physician Dr. Deonte Beckett DO Attending Physician Dr. Deotne Beckett DO Emergency Department Physic thanh Walker BRUSH WASHER-C, Mela Attending Physician Walker BRUSH WASHER-C, Mela Referring Provider Kirk Cuellar Attending Physician Assessment, Health Risk Attending Physician Unav ailable Dossi DC, Dr. Mathew Attending Physician [phone] Kevin Bose Attending Physician Walker, Mela Referring Unavailable Walker, Mela Primary Care Unavailable Uyen Marcano Attending Unavailable Walker, Mela Primary Care Unavailable Priyanka Leonardo Attending Unavailable Walker, Mela Referring Unavailable Walker, Mela Primary Care Unavailable Deonte Beckett Attending Unavailable Assessment, Health Risk Attending Unavaila ble Assessment, Health Risk Referring Unavaila ble Walker, Mela Primary Care Unavailable Walker, Mela Primary Care Unavailable Kirk Cuellar Attending Unavailable Kirk Cuellar Referring Unavailable Walker, Mela Attending Unavailable Walker, Mela Referring Unavailable Walker, Mela Primary Care Unavailable Walker, Mela Referring Unavailable Walker, Mela Attending Unavailable Walker, Mela Primary Care Unavailable Walker, Mela Referring Unavailable Walker, Mela Primary Care Unavailable Walker, Mela Attending Unavailable Kevin Bose Attending Unavailable Walker, Mela Primary Care Unavailable Walker, Mela Referring Unavailable Walker, Mela Referring Unavailable Walker, Mela Primary Care Unavailable Priyanka Leonardo Attending Unavailable Allergies Allergy Classification Reported Allergen(s) Allergy Type Date of Onset Reaction(s) Facility Amoxicillin / Clavulanate (1 source) Amoxicillin / Clavulanate Drug Allergy 9 Hives [facility] Work Phone: Clavulanate (1 source) Clavulanate Drug Allergy 0 [facility] Penicillins (antibiotic) (1 source) Penicillins Drug Allergy 5 [facility] (20 sources) Amoxicillin / Clavulanate; Translations: [Unknown] Drug Allergy 9 Hives, Anaphylaxis [facility] (20 sources) Clavulanate; Translations: [CLAVULANIC ACID] Drug Allergy 0 Shortness of breath [facility] (20 sources) Penicillins; Translations: [PENICILLINS] Propensity to adverse reactions to drug 5 [facility] (1 source) Amoxicillin / Clavulanate Drug Allergy Anaphylaxis [facility] (15 sources) Amoxicillin Drug Allergy 2 Shortness of breath [facility] (1 source) Amoxicillin Drug Allergy 5 [facility] Repository (1 source) Clavulanate Drug Allergy 5 [facility] Medications Current Medications Medication Drug Class(es) Dates Sig (Normalized) Sig (Original) amphetamine aspartate 7.5 mg / amphetamine sulfate 7.5 mg / dextroamphetamine saccharate 7.5 mg / dextroamphetamine sulfate 7.5 mg oral tablet (20 sources) Central Nervous System Stimulant Start: 03-30-2025 End: 04-29-2025 take 1 tablet by mouth twice daily dextroamphetamine- amphetamine (ADDERALL) 30 mg tablet Indications: Attention deficit hyperactivity disorder (ADHD), predominantly inattentive type Take 1 (one) tablet (30 mg total) by mouth 2 (two) times a day Start: 03/30/25. 60 tablet 03/30/2025 04/29/2025 Active Start: 03-17-2025 End: 04-16-2025 take 1 tablet by mouth once daily dextroamphetamine-amphetamine (ADDERALL) 10 mg tablet Indications: Attention deficit hyperactivity disorder (ADHD), predominantly inattentive type Take 1 (one) tablet (10 mg total) by mouth daily . 30 tablet 03/17/2025 04/16/2025 Active Start: 03-17-2025 End: 04-16-2025 take 1 tablet by mouth once daily dextroamphetamine-amphetamine (ADDERALL) 30 mg tablet Indications: Attention deficit hyperactivity disorder (ADHD), predominantly inattentive type Take 1 (one) tablet (30 mg total) by mouth daily . 30 tablet 03/17/2025 04/16/2025 Active Start: 12-05-2024 End: 04-04-2025 take 1 capsule by mouth twice daily dextroamphetamine-amphetamine (ADDERALL XR) 30 MG 24 hr capsule Indications: Attention deficit hyperactivity disorder (ADHD), predominantly inattentive type Take 1 (one) capsule (30 mg total) by mouth 2 (two) times a day Start: 02/05/25. 60 capsule 02/05/2025 03/17/2025 Discontinued (Side effects) Start: 08-01-2023 End: 09-10-2024 take 1 capsule [...] . 90 tablet 0 06/01/2020 08/30/2020 Active bimekizumab-bkzx (BIMZELX AUTOINJECTOR SUBQ) (2 sources) Start: 01-06-2025 bimekizumab-bkzx (BIMZELX AUTOINJECTOR SUBQ) 01/06/2025 Active clindamycin 0.01 mg/mg topical gel (4 sources) Lincosamide Antibacterial Start: 01-29-2025 clindamycin 1 % gel 01/29/2025 Active Start: 06-20-2022 End: 07-19-2022 take 1 capsule [...] nightly . 90 tablet 1 10/12/2023 Active lamoTRIgine 100 mg oral tablet (20 sources) Mood Stabilizer, Anti-epileptic Agent Start: 01-31-2023 End: 02-05-2026 take 1 tablet by mouth once daily lamoTRIgine (LAMICTAL) 100 MG tablet Indications: Depression, unspecified depression type Take 1 (one) tablet (100 mg total) by mouth daily . 90 tablet 1 02/05/2025 02/05/2026 Active Start: 10-18-2022 End: 10-18-2023 take 3 [...] . 90 tablet 1 04/05/2022 07/19/2022 Discontinued ondansetron 4 mg oral tablet (13 sources) Serotonin-3 Receptor Antagonist Start: 02-28-2024 End: 03-17-2025 take 1 tablet by mouth every eight hours as needed for nausea ondansetron (ZOFRAN) 4 MG tablet Take 1 (one) tablet (4 mg total) by mouth every 8 (eight) hours as needed for nausea . 20 tablet 1 03/17/2025 Active pantoprazole 40 mg delayed release oral tablet (17 sources) Proton Pump Inhibitor Start: 09-16-2024 End: 08-02-2025 take 1 tablet by mouth once daily pantoprazole (PROTONIX) 40 MG tablet Take 1 (one) tablet (40 mg total) by mouth daily . 90 tablet 1 02/03/2025 08/02/2025 Active Start: 03-13-2024 End: 09-09-2024 take 1 tablet [...] mg disintegrating oral tablet (20 sources) Start: 04-15-2025 apply 1 tablet topically once daily as needed Rimegepant (Nurtec ODT) 75 mg ODT Indications: Intractable migraine with aura without status migrainosus Dissolve 1 (one) tablet (75 mg total) on top of tongue daily as needed . 10 tablet 5 04/15/2025 Active Start: 01-31-2023 End: 04-15-2025 take 1 tablet by mouth once as needed Start: 02-10-2022 apply 1 tablet topic ally [...] March 21, 2023 11:00pm Start: 03-01-2023 End: 03-10-2026 take 1 tablet by mouth once daily sertraline (ZOLOFT) 100 MG tablet Indications: Depression, unspecified depression type Take 1 (one) tablet (100 mg total) by mouth daily . 90 tablet 1 03/10/2025 03/10/2026 Active Start: 02-10-2022 End: 07-19-2023 take 1 tablet by mouth once daily sertraline (ZOLOFT) 25 MG tablet Indications: Depression, unspecified depression type Take 1 (one) tablet (25 mg total) by mouth daily . 90 tablet 1 07/19/2022 07/19/2023 Active topiramate 25 mg oral capsul e (20 sources) Start: 09-16-2024 Start: 03-01-2023 End: 03-17-2025 topiramate (TOPAMAX) 25 MG t ablet Indications: Intractable migraine with aura without status migrainosus Take 25mg in the AM, and 50mg in the PM . 270 tablet 1 10/12/2023 03/17/2025 Discontinued (Therapy completed) Start: 02-10-2022 End: 07-19-2022 topiramate (TOPAMAX) 25 [...] tablet 3 11/13/2018 06/20/2019 Discontinued (Therapy completed) ergocalciferol 1.25 mg oral capsule (20 sources) Provitamin D2 Compound Start: 01-31-2023 End: 08-08-2025 take 1 capsule by mouth every week ergocalciferol (ERGOCALCIFEROL) 1,250 mcg (50,000 unit) capsule Indications: Vitamin D deficiency Take 1 (one) capsule (50,000 Units total) by mouth once a week . 12 capsule 1 08/08/2024 03/17/2025 Discontinued (Therapy completed) Start: 07-05-2021 End: 07-13-2022 take 1 capsule by mouth every week ergocalciferol (ERGOCALCIFEROL) 1,250 mcg (50,000 unit) capsule Indications: Vitamin D deficiency Take 1 (one) capsule (50,000 Units total) by mouth once a week . 12 capsule 1 07/13/2021 Active fluconazole 150 mg oral tablet (2 sources) [...] Ordered: 03-Aug-2021 Lionel Aranda Generic Substitution Allowed lisdexamfetamine dimesylate 60 mg oral capsule (20 sources) Central Nervous System Stimulant Start: 10-13-2024 End: 03-17-2025 take 1 capsule by mouth once daily in the morning lisdexamfetamine (Vyvanse) 60 MG capsule Indications: Attention deficit hyperactivity disorder (ADHD), predominantly inattentive type Take 1 (one) capsule (60 mg total) by mouth every morning . 30 capsule 10/13/2024 03/17/2025 Discontinued (Therapy completed) Start: 09-15-2024 End: 10-13-2024 take 1 capsule by mouth once daily in the morning lisdexamfetamine (Vyvanse) 50 MG capsule Indications: Attention deficit hyperactivity disorder (ADHD), predominantly inattentive type Take 1 (one) capsule (50 mg total) by mouth every morning . 30 capsule 09/15/2024 10/13/2024 Discontinued (Dose adjustment) Start: 09-10-2024 End: 12-05-2024 take 1 capsule by mouth once daily Start: 02-04-2021 End: 03-10-2021 take 1 capsule [...] 30 capsule 0 12/08/2020 03/10/2021 Discontinued (Ineffective) meloxicam 15 mg oral tablet (1 source) [...] 03/13/2024 Active spironolactone 100 mg oral tablet (9 sources) Aldosterone Antagonist Start: 03-22-2023 End: 09-16-2024 [...] tablet 1 07/19/2022 10/18/2022 Discontinued (Therapy completed) sulfamethoxazole 800 mg / trimethoprim 160 mg oral tablet (7 sources) Dihydrofolate Reductase Inhibitor Antibacterial, Sulfonamide Antimicrobial Start: 09-08-2024 End: 03-17-2025 take 1 tablet by mouth twice daily sulfamethoxazole-trimethoprim (BACTRIM DS,SEPTRA DS) 800-160 mg per tablet Take 1 (one) tablet by mouth 2 (two) times a day . 20 tablet 09/08/2024 03/17/2025 Discontinued (Therapy completed) Problems Active Problems Problem Classification Problem Date Documented Date Episodic/Chronic Anxiety disorders (20 sources) Generalized anxiety disorder; Translations: [Generalized anxiety disorder] Onset: 06-23-2019 06-23-2019 Chronic Attention-deficit conduct and disruptive behavior disorders (20 sources) Attention deficit hyperactivity disorder; Translations: [Attention-deficit hyperactivity disorder, unspecified type] Onset: 08-09-2018 08-09-2018 Chronic Attention-deficit, conduct, and disruptive behavior disorders (20 sources) Attention deficit hyperactivity disorder, predominantly inattentive type; Translations: [Attention-deficit hyperactivity disorder, predominantly inattentive type] Chronic Attention-deficit, conduct, and disruptive behavior disorders (2 sources) Attention-deficit hyperactivity disorder, predominantly inattentive type; Translations: [Attention-deficit hyperactivity disorder, predominantly inattentive type] Onset: 08-09-2018 Chronic Disorders of lipid metabolism (14 sources) Hyperlipidemia; Translations: [Hyperlipidemia, unspecified] Onset: 03-13-2024 03-13-2024 Chronic Headache; including migraine (20 sources) Refractory migraine with aura; Translations: [Migraine with aura, intractable, without status migrainosus] Onset: 02-23-2022 Chronic Headache; including migraine (6 sources) Cervicogenic headache; Translations: [Cervicogenic headache] 05-26-2024 Episodic Influenza (15 sources) Influenza due to Influenza A virus; [...] Chronic Other bone disease and musculoskeletal deformities (20 sources) Segmental and somatic dysfunction; Translations: [Segmental and somatic dysfunction of cervical region] 03-27-2023 Episodic Other bone disease and musculoskeletal deformities (4 sources) Segmental and somatic dysfunction of cervical region; Translations: [Nonallopathic lesions, cervical region] Onset: 01-29-2025 03-22-2023 Episodic Other bone disease and musculoskeletal deformities (4 sources) Segmental and somatic dysfunction of lumbar region; Translations: [Nonallopathic lesions, lumbar region] Onset: 01-29-2025 03-22-2023 Episodic Other bone disease and musculoskeletal deformities (4 sources) Segmental and somatic dysfunction of pelvic region; Translations: [Nonallopathic lesions, pelvic region] Onset: 01-29-2025 03-22-2023 Episodic Other bone disease and musculoskeletal deformities (4 sources) Segmental and somatic dysfunction of thoracic region; Translations: [Nonallopathic lesions, thoracic region] Onset: 01-29-2025 03-22-2023 Episodic Other non-traumatic joint disorders (1 source) Pain in unspecified joint; Translations: [Pain in unspecified joint] Onset: 01-15-2025 Episodic Other nutritional; endocrine; and metabolic disorders (13 sources) Body mass index 40+ - severely obese; Translations: [Morbid (severe) obesity due to excess calories] Onset: 03-13-2024 03-13-2024 Chronic Other screening for suspected conditions (not mental disorders or infectious disease) (2 sources) Encounter for screening mammogram for malignant neoplasm of breast; Translations: [Encounter for screening mammogram for malignant neoplasm of breast] Onset: 03-17-2025 Episodic Other skin disorders (1 source) Hidradenitis suppurativa; Translations: [Hidradenitis suppurativa] Onset: 01-29-2025 Episodic Other upper respiratory disease (15 sources) Respiratory tract congestion; Translations: [Nasal congestion] 06-26-2021 Episodic Other upper respiratory infections (17 sources) Common cold; Translations: [Acute nasopharyngitis [common cold]] Episodic Sprains and strains (20 sources) Strain of thoracic region; Translations: [Strain of muscle and tendon of back wall of thorax, initial encounter] 06-17-2020 Episodic Syncope (5 sources) Near syncope; Translations: [Syncope and collapse] 12-08-2024 Episodic Unclassified (6 sources) Patient encounter status; Translations: [Encounter for well adult exam without abnormal findings] 03-17-2025 Unclassified (1 source) Screening status; Translations: [Screening for thyroid disorder] Unclassified (1 source) Gastroenteritis, acute 11-17-2020 Unclassified (2 sources) EXT MAMMOGRAM Onset: 03-25-2024 Past or Other Problems Problem Classification Problem Date Documented Da te Episodic/Chronic Conditions associated with dizziness or vertigo (1 source) Dizziness and giddiness; Translations: [Dizziness and giddiness] Onset: 12-11-2024 Episodic Immunizations and screening for infectious disease (20 sources) Patient encounter status; Translations: [Encounter for screening for COVID-19] Onset: 02-23-2022 Resolved: 09-10-2024 Episodic Mood disorders (20 sources) Mood disorders; Translations: [Depression, unspecified] Onset: 03-13-2024 Resolved: 03-17-2025 03-13-2024 Nutritional deficiencies (20 sources) Iron deficiency; Translations: [Iron deficiency] Onset: 04-18-2022 Episodic Other skin disorders (20 sources) Hidradenitis suppurativa; Translations: [Hidradenitis suppurativa] Onset: 08-09-2018 08-09-2018 Episodic Spondylosis; intervertebral disc disorders; other back problems (14 sources) Backache; Translations: [Neck pain] Onset: 08-14-2024 08-03-2021 Episodic Comment on above: BACK PAIN Results Test Name Value Interpretation Reference Range Facility Office Visit Reporton 2024 Office Visit Report [facility] [address] [place] [address] OFFICE VISIT Date of Service: 03/23/25 MR#: [id number] Acct: [id number] Patient: FRIDA WIN Rep #: [id number] : 1980 Provider: MARTHA Arnold Age/Sex: 44/F Location: [facility] [place] Status: Signed with Addenda ADDENDUM by CEDRIC Hopkins on 03/24/25 at 0752 Office Procedure Documentation entered by Ayaka Hopkins MA 03/24/25 07:52: Now Clinic Billing Sheet Covid Covid Swab-Rapid: Yes Date cc: * Signed Intake Vital Signs 12/08/24 07:11 Height 5 ft 3 in Intake Visit Reasons: COVID TEST Chief Complaint: Back pain Allergies amoxicillin (From Augmentin) Allergy (Verified 01/29/25 15:13) Shortness of breath clavulanic acid (From Augmentin) Allergy (Verified 01/29/25 15:13) Shortness of breath Nurse's Note: Patient is here for a COVid test. Results POC TAYLOR Covid FluAB PCR POC Taylor Covid PCR Not Detected Last Edit by Ayaka Hopkins MA on 03/23/25 10:55 POC TAYLOR FLU NOT DETECTED FLU A B Last Edit by Ayaka Hopkins MA on 03/23/25 10:55 Assessment and Plan Assessment and Plan Orders: Orders POC Taylor Covid FLUAB PCR Today Plan Details Goals Barriers: Goals Decrease spasm Improve alignment Decrease pain Improve LOPEZ 03/23/25 1115 Date Kevin Wilder Signature: Date (if applicable) CC: Normal [facility] Chiropractic Reporton 2024 Chiropractic Report [facility] [place] [address] OFFICE VISIT Date of Service: 01/29/25 MR#: [id number] Acct: [id number] Name: FRIDA WIN Rep #: [id number] : 1980 Provider: SHEYLA Lopez Age/Sex: 44/F Location: [facility] [place] Status: Signed Intake Vital Signs 12/08/24 07:11 01/29/25 15:09 Height 5 ft 3 in Weight: 247 lb BP 136/82 H Intake Visit Reasons: REEVAL Chief Complaint: Back pain Is patient in pain?: Yes (neck,low back ) Pain scale (1-10): 3 Allergies amoxicillin (From Augmentin) Allergy (Verified 01/29/25 15:13) Shortness of breath clavulanic acid (From Augmentin) Allergy (Verified 01/29/25 15:13) Shortness of breath Medications ???Medication ???Instructions ???Recorded ???Confirmed ???Type lamotrigine 100 mg tablet 100 mg PO QDAY 09/16/24 01/29/25 H istory lisdexamfetamine 40 mg capsule 40 mg PO QDAY 09/16/24 01/29/25 Hi story (Vyvanse) pantoprazole 40 mg tablet,delayed 40 mg PO QDAY 09/16/24 01/29/25 H istory release rimegepant 75 mg disintegrating 75 mg PO ONCE PRN 09/16/24 5 History tablet (Nurtec ODT) sertraline 100 mg tablet (Zoloft) 100 mg PO QDAY 09/16/24 01/29/25 History topiramate 25 mg sprinkle capsule PO 09/16/24 01/29/25 History [facility] Medical History Encounter for Essure implantation Hidradenitis suppurativa Vitamin D deficiency Anemia URI (upper respiratory infection) Surgical History H/O: hysterectomy Family History Mother Anemia Anxiety Rheumatoid arthritis Depression Hypertension Hormone imbalance Mental disorder Osteoporosis Brother Asthma Grandmother Arthritis Sister Factor 5 Leiden mutation, heterozygous Depression Aunt Cervical cancer Father Diabetes Hypertension Grandmother Parkinson disease Social History adopted: No number of children: 3 current occupational status: employed 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 Pt. states her neck and upper back are tight and she has noticed a decrease in ROM and in increase in migraines. She rates her neck pain 3/10. She states she has a sharp pain in her right shulder when she lifts her arm. She also c/o right low back/SI pain. She states it flared up back in July and her PCP ordered x-rays and prednisone which was helpful, but she is starting to feel it coming back. She rates her pain 2/10 and states she does experience radiculopathy down her right leg at times. She denies new injury. She treats pain with Tylenol and Ibuprofen. She states chiropractic adjustments have been helpful in the past. Location: neck and low back Duration: frequent Aggravating or associated factors: ROM, walking Relieving factors: chiro Pain Quality: aching, dull and radiating Exam Musc General: Yes normal posture, normal gait and joint tenderness; No muscle weakness or decreased range of motion Cervical Spine: Yes cervical muscular tenderness left greater than right diffuse , Yes pain with cervical ROM with lateral flexion to right, with lateral flexion to left and with extension, Yes cervical spasm right greater than left diffuse trapezius and paracervical muscles, left upper intrinsics and Yes misalignment misalignment: C1, C6 and C7 Thoracic/Lumber: Yes thoracic and lumbar spine normal to inspection, Yes Lasegue's sign negative, Yes straight leg raise negative bilaterally, Yes pain with thoraco-lumbar ROM with forward flexion and with rotation to the right (pain on L), Yes paraspinal tenderness bilaterally in the upper thoracic and on the right greater than left (lumbopelvic), Yes thoraco-lumbar spasm bilaterally (trap, levator) and on the right greater than left (QL, glute) and Yes misalignment T1, T2, T3, T4, T5, L3, L4, L5 and RIL Sacroiliac joints: on the right tender to palpation Neuro General: patient alert, patient awake, patient oriented x3, normal light touch, pain and propioception and no focal motor deficits Cranial Nerves: CN's II-XI intact bilaterally Cognition: normal cognition Speech: speech normal Gait: normal gait Motor: muscle tone normal throughout Sensory Exam (more content not included)... Normal [facility] Quantiferon TB-Gold+on 01-27 QFT MITOGEN JAY > 10.00 Normal . [facility] Comment on above: Performed By: #### L 3100.5475, L100.0100, L501.6710, L505.7010, L101.9900, L4600.0100, L501.1400 #### [facility] [address] [place], [address] QFT NIL VALUE 0.03 IU/mL Normal . [facility] Comment on above: Performed By: #### L 3100.5475, L100.0100, L501.6710, L505.7010, L101.9900, L4600.0100, L501.1400 #### [facility] [address] [place], [address] QFT TB GOLD+ Comment Normal . [facility] Comment on above: Result Comment: Dwight tiFERON-TB Gold Plus is a qualitative indirect test for M tuberculosis infection (including disease) and is intended for use in conjunction with risk assessment, radiography, and other medical and diagnostic evaluations. The QuantiFERON-TB Gold Plus result is determined by subtracting the Nil value from either TB antigen (Ag) value. The Mitogen tube serves as a control for the test. Performed By: #### L 3100.5475, L100.0100, L501.6710, L505.7010, L101.9900, L4600.0100, L501.1400 #### [facility] [address] [place], [address] QFT TB POS CRIT Negative Normal Negative [facility] Comment on above: Result Comment: No r esponse to M tuberculosis antigens detected. Infection with M tuberculosis is unlikely, but high risk individuals should be considered for additional testing (ATS/IDSA/CDC Clinical Practice Guidelines, 2017). The reference range is an Antigen minus Nil result of <0.35 IU/mL. The specimen received for QuantiFERON testing was incubated by the ordering institution. Specific procedures outlined in our Directory of Services and in the package insert for the QuantiFERON Gold (In Tube) test must be followed to enable for proper stimulation of cells for the production of interferon gamma. Chemiluminescence immunoassay methodology Performed at: [facility] [email or web address] [id number] Chlorinator: Graham Kinney PhD, Phone: [phone] Performed By: #### L 3100.5475, L100.0100, L501.6710, L505.7010, L101.9900, L4600.0100, L501.1400 #### [facility] [address] [place], [place], [address] QFT TB1+ AG JAY 0.03 IU/mL Normal . [facility] Comment on above: Performed By: #### L 3100.5475, L100.0100, L501.6710, L505.7010, L101.9900, L4600.0100, L501.1400 #### [facility] [address] [place], [place], [id number] QFT TB2+ AG JAY 0.04 IU/mL Normal . [facility] Comment on above: Performed By: #### L 3100.5475, L100.0100, L501.6710, L505.7010, L101.9900, L4600.0100, L501.1400 #### [facility] [address] [place], [place], [id number] Absolute lymphocyte countOrd ered By: HEALTH ASSESSMENT on 01-23-2025 Lymphocytes Auto (Unsp spec) [#/Vol] 1.72 10*3/uL 0.83-4.51 [facility] Absolute neutrophil countOrd ered By: HEALTH ASSESSMENT on 01-23-2025 Neutrophils (Bld) [#/Vol] 5.2 10*3/uL 2.0-7.7 [facility] Absolute nucleated red blood cell countOrdered By: HEALTH ASSESSMENT on 01-23-2025 Nucleated RBC (Bld) [#/Vol] 0.00 10*3/uL 0-5 [facility] Anion gap in Serum or Plasma Ordered By: HEALTH ASSESSMENT on 01-23-2025 Anion gap [Moles/Vol] 11 mmol/L 5-15 [facility] BUN/creatinine ratioOrdered By: HEALTH ASSESSMENT on 01-23-2025 Urea nitrogen/Creatinine [Mass ratio] 24.8 mg/mg High 10- [facility] Bilirubin directOrdered By: HEALTH ASSESSMENT on 01-23-2025 Bilirubin.direct [Mass/Vol] 0.11 mg/dL 0.00-0.30 [facility] Bilirubin, totalOrdered By: HEALTH ASSESSMENT on 01-23-2025 Bilirubin [Mass/Vol] 0.24 mg/dL 0.00-1.30 [facility] Blood band neutrophil count as percentage of total leukocytesOrdered By: HEALTH ASSESSMENT on 01-23-2025 Band form neutrophils/100 WBC (Bld) 69.0 % 47-70 [facility] CBC, Employeeon 01-23-2025 Absolute Lymph 1.72 X10 3/uL Normal 0.83-4.51 [facility] Comment on above: Performed By: #### L 3100.5475, L100.0100, L501.6710, L505.7010, L101.9900, L4600.0100, L501.1400 #### [facility] [address] [place], [address] Absolute Neut 5.2 X10 3/uL Normal 2.0-7.7 [facility] Comment on above: Performed By: #### L 3100.5475, L100.0100, L501.6710, L505.7010, L101.9900, L4600.0100, L501.1400 #### [facility] [address] [place], [address] Basophils/100 WBC (Bld) 0.8 % Normal 0-1 [facility] Comment on above: Performed By: #### L 3100.5475, L100.0100, L501.6710, L505.7010, L101.9900, L4600.0100, L501.1400 #### [facility] [address] [place], [address] Eosinophils/100 WBC (Bld) 1.7 % Normal 0-5 [facility] Comment on above: Performed By: #### L 3100.5475, L100.0100, L501.6710, L505.7010, L101.9900, L4600.0100, L501.1400 #### [facility] [address] [place], [address] Erythrocyte distribution width (RBC) [Ratio] 14.9 % High 11.6-14.6 [facility] Comment on above: Performed By: #### L 3100.5475, L100.0100, L501.6710, L505.7010, L101.9900, L4600.0100, L501.1400 #### [facility] [address] [place], [address] Hematocrit (Bld) [Volume fraction] 43.7 % Normal 37-47 [facility] Comment on above: Performed By: #### L 3100.5475, L100.0100, L501.6710, L505.7010, L101.9900, L4600.0100, L501.1400 #### [facility] [address] [place], [address] Hemoglobin (Bld) [Mass/Vol] 13.8 g/dL Normal 12.0-15.0 [facility] Comment on above: Performed By: #### L 3100.5475, L100.0100, L501.6710, L505.7010, L101.9900, L4600.0100, L501.1400 #### [facility] [address] [place], [address] Lymphocytes/100 WBC (Bld) 22.7 % Normal 19-41 [facility] Comment on above: Performed By: #### L 3100.5475, L100.0100, L501.6710, L505.7010, L101.9900, L4600.0100, L501.1400 #### [facility] [address] [place], [address] MCH (RBC) [Entitic mass] 25.4 pg Low 27.0-32.0 [facility] Comment on above: Performed By: #### L 3100.5475, L100.0100, L501.6710, L505.7010, L101.9900, L4600.0100, L501.1400 #### [facility] [address] [place], [address] MCHC (RBC) [Mass/Vol] 31.6 g/dL Low 32-36 [facility] Comment on above: Performed By: #### L 3100.5475, L100.0100, L501.6710, L505.7010, L101.9900, L4600.0100, L501.1400 #### [facility] [address] [place], [address] MCV (RBC) [Entitic vol] 80.5 fL Low 81-99 [facility] Comment on above: Performed By: #### L 3100.5475, L100.0100, L501.6710, L505.7010, L101.9900, L4600.0100, L501.1400 #### [facility] [address] [place], [address] Monocytes/100 WBC (Bld) 5.4 % Normal 0-10 [facility] Comment on above: Performed By: #### L 3100.5475, L100.0100, L501.6710, L505.7010, L101.9900, L4600.0100, L501.1400 #### [facility] [address] [place], [address] Neutrophils/100 WBC (Bld) 69.0 % Normal 47-70 [facility] Comment on above: Performed By: #### L 3100.5475, L100.0100, L501.6710, L505.7010, L101.9900, L4600.0100, L501.1400 #### [facility] [address] [place], [address] NRBC # 0.00 10 3/uL Normal 0-5 [facility] Comment on above: Performed By: #### L 3100.5475, L100.0100, L501.6710, L505.7010, L101.9900, L4600.0100, L501.1400 #### [facility] [address] [place], [address] Nucleated RBC (Bld) [#/Vol] 0 10*3/uL Normal 0-5 [facility] Comment on above: Performed By: #### L 3100.5475, L100.0100, L501.6710, L505.7010, L101.9900, L4600.0100, L501.1400 #### [facility] [address] [place], [address] Platelet mean volume (Bld) [Entitic vol] 9.5 fL Normal 6.2-12.0 [facility] Comment on above: Performed By: #### L 3100.5475, L100.0100, L501.6710, L505.7010, L101.9900, L4600.0100, L501.1400 #### [facility] [address] [place], [address] Platelets (Bld) [#/Vol] 360 10*3/uL Normal 150-450 [facility] Comment on above: Performed By: #### L 3100.5475, L100.0100, L501.6710, L505.7010, L101.9900, L4600.0100, L501.1400 #### [facility] [address] [place], [address] RBC (Bld) [#/Vol] 5.43 10*6/uL High 4.2-5.4 [facility] Comment on above: Performed By: #### L 3100.5475, L100.0100, L501.6710, L505.7010, L101.9900, L4600.0100, L501.1400 #### [facility] [address] [place], [address] RDW SD 43.6 fl Normal 35.1-43.9 [facility] Comment on above: Performed By: #### L 3100.5475, L100.0100, L501.6710, L505.7010, L101.9900, L4600.0100, L501.1400 #### [facility] [address] [place], [place], [id number] WBC (Bld) [#/Vol] 7.6 10*3/uL Normal 4.4-11.0 [facility] Comment on above: Performed By: #### L 3100.5475, L100.0100, L501.6710, L505.7010, L101.9900, L4600.0100, L501.1400 #### [facility] [address] [place], [place], [id number] Calculated very low density lipoprotein (VLDL) cholesterol measurementOrdered By: HEALTH ASSESSMENT on 01-23-2025 Calculated very low density lipoprotein (VLDL) cholesterol measurement 11 mg/dL 5-40 [facility] Carbon dioxide, total [Moles /volume] in Central venous bloodOrdered By: HEALTH ASSESSMENT on 01-23-2025 CO2 [Moles/Vol] 24.5 mmol/L 21.0-32.0 [facility] Chloride assayOrdered By: HE ALTH ASSESSMENT on 01-23-2025 Chloride [Moles/Vol] 101 mmol/L 98-108 [facility] Employee Profileon 5 LDH 159 U/L Normal 84-246 [facility] Comment on above: Performed By: #### L 3100.5475, L100.0100, L501.6710, L505.7010, L101.9900, L4600.0100, L501.1400 #### [facility] [address] [place], [address] Phosphate [Mass/Vol] 3.1 mg/dL Normal 2.7-4.5 [facility] Comment on above: Performed By: #### L 3100.5475, L100.0100, L501.6710, L505.7010, L101.9900, L4600.0100, L501.1400 #### [facility] [address] [place], [address] URIC 3.2 mg/dL Normal 2.6-6.0 [facility] Comment on above: Result Comment: The drugs N-Acetylcysteine and Metamizole may falsely depress this assay. Performed By: #### L 3100.5475, L100.0100, L501.6710, L505.7010, L101.9900, L4600.0100, L501.1400 #### [facility] [address] [place], [address] Erythrocyte distribution wid th ratioOrdered By: HEALTH ASSESSMENT on 01-23-2025 Erythrocyte distribution width (RBC) [Ratio] 14.9 % High 11.6-14.6 [facility] Erythrocyte distribution wid th standard deviationOrdered By: HEALTH ASSESSMENT on 01-23-2025 Erythrocyte distribution width (RBC) [Ratio] 43.6 fl 35.1-43.9 [facility] Glomerular filtration rate ( GFR) estimation/1.73 sq m using serum, plasma, or whole bOrdered By: HEALTH ASSESSMENT on 01-23-2025 GFR/1.73 sq M.predicted among non-blacks MDRD (S/P/Bld) [Vol rate/Area] 113 mL/min/{1.73_m2} >60 [facility] Comment on above: mL/min/1.73m2 CKD-EP I Creatinine Equation (2020) Hematocrit Auto (Bld) [Volum e fraction]Ordered By: HEALTH ASSESSMENT on 01-23-2025 Hematocrit (Bld) [Volume fraction] 43.7 % 37-47 [facility] Hemoglobin measurementOrdere d By: HEALTH ASSESSMENT on 01-23-2025 Hemoglobin (Bld) [Mass/Vol] 13.8 g/dL 12.0-15.0 [facility] LDL calc ser/plasOrdered By: HEALTH ASSESSMENT on 01-23-2025 Cholesterol in LDL [Mass/Vol] 95 mg/dL [facility] Comment on above: Thlkulthrp=474-023 m g/dL & Higher Wdae=770 mg/dL or greaterFriedwald Equation for LDL-C Laboratory - Chemistry and C hemistry - challengeOrdered By: HEALTH ASSESSMENT on 01-23-2025 AST [Catalytic activity/Vol] 15 U/L <32 [facility] Lactate dehydrogenase (LDH) measurementOrdered By: HEALTH ASSESSMENT on 01-23-2025 LDH [Catalytic activity/Vol] 159 U/L 84-246 [facility] MCV (mean corpuscular volume ) determinationOrdered By: HEALTH ASSESSMENT on 01-23-2025 MCV (RBC) [Entitic vol] 80.5 fL Low 81-99 [facility] Mean corpuscular hemoglobin (MCH) determinationOrdered By: HEALTH ASSESSMENT on 01-23-2025 MCH (RBC) [Entitic mass] 25.4 pg Low 27.0-32.0 [facility] Mean corpuscular hemoglobin concentration (MCHC) determinationOrdered By: HEALTH ASSESSMENT on 01-23-2025 MCHC (RBC) [Mass/Vol] 31.6 g/dL Low 32-36 [facility] Mean platelet volume determi nationOrdered By: HEALTH ASSESSMENT on 01-23-2025 Platelet mean volume (Bld) [Entitic vol] 9.5 fL 6.2-12.0 [facility] Nucleated red blood cell per centageOrdered By: HEALTH ASSESSMENT on 01-23-2025 Nucleated RBC/100 WBC (Bld) [Ratio] 0 % 0-5 [facility] Platelet countOrdered By: SOL ALTH ASSESSMENT on 01-23-2025 Platelets (Bld) [#/Vol] 360 10*3/uL 150-450 [facility] Potassium measurement (mass/ volume)Ordered By: HEALTH ASSESSMENT on 01-23-2025 Potassium (Unsp spec) [Mass/Vol] 4.5 mmol/L 3.3-5.1 [facility] Qualitative QuantiFERON-TB g old in tube testOrdered By: Kirk Danielson on 01-23-2025 M. tuberculosis tuberculin stim IFN-g Ql (Bld) 0.03 IU/mL . [facility] RBC Auto (Bld) [#/Vol]Ordere d By: HEALTH ASSESSMENT on 01-23-2025 RBC (Bld) [#/Vol] 5.43 10*6/uL High 4.2-5.4 [facility] Screening total cholesterol/ high density lipoprotein (HDL) cholesterol ratioOrdered By: HEALTH ASSESSMENT on 01-23-2025 Cholesterol.total/Karlie sterol in HDL [Mass ratio] 3.02 {ratio} [facility] Serum creatinine measurement (mass/volume)Ordered By: HEALTH ASSESSMENT on 01-23-2025 Creatinine [Mass/Vol] 0.62 mg/dL Low 0.70-1.20 [facility] Serum globulin measurementOr dered By: HEALTH ASSESSMENT on 01-23-2025 Globulin (S) [Mass/Vol] 3.1 g/dL 2.2-4.2 [facility] Serum glucose measurement (m ass/volume)Ordered By: HEALTH ASSESSMENT on 01-23-2025 Glucose [Mass/Vol] 112 mg/dL High 70-99 [facility] Serum or plasma alanine zavala otransferase (ALT) measurementOrdered By: HEALTH ASSESSMENT on 01-23-2025 ALT [Catalytic activity/Vol] 15 U/L <35 [facility] Serum or plasma albumin emanuel urement (mass/volume)Ordered By: HEALTH ASSESSMENT on 01-23-2025 Albumin [Mass/Vol] 4.2 g/dL 3.5-5.0 [facility] Serum or plasma albumin/glob ulin mass ratioOrdered By: HEALTH ASSESSMENT on 01-23-2025 Albumin/Globulin [Mass ratio] 1.3 {ratio} 0.9-2.4 [facility] Serum or plasma alkaline treva sphatase measurementOrdered By: HEALTH ASSESSMENT on 01-23-2025 ALP [Catalytic activity/Vol] 97 U/L 35-104 [facility] Serum or plasma calcium emanuel urement (mass/volume)Ordered By: HEALTH ASSESSMENT on 01-23-2025 Calcium [Mass/Vol] 9.3 mg/dL 7.6-11.0 [facility] Serum or plasma cholesterol in HDL measurement (mass/volume)Ordered By: HEALTH ASSESSMENT on 01-23-2025 Cholesterol in HDL [Mass/Vol] 53 mg/dL >40 [facility] Comment on above: National Cholesterol Education Program (NCEP) guidelines:<40 mg/dL: Low HDL-cholesterol (major risk factor for CHD)>= 60 mg/dL: High HDL-cholesterol (negative risk factor for CHD)HDL-cholesterol is affected by a number of factors, e.g. smoking, exercise, hormones, sex and age. Serum or plasma cholesterol measurement (mass/volume)Ordered By: HEALTH ASSESSMENT on 01-23-2025 Cholesterol [Mass/Vol] 159 mg/dL <201 [facility] Comment on above: Cholesterol level, D esirable <200 mg/dLBorderline high cholesterol 200-239 mg/dLHigh cholesterol >=240 mg/dLRecommendations of the NCEP Adult Treatment Panel for the following risk-cutoff thresholds for the [place] population. Serum or plasma urea nitroge n measurement (mass/volume)Ordered By: HEALTH ASSESSMENT on 01-23-2025 Urea nitrogen [Mass/Vol] 16 mg/dL 4-19 [facility] Serum or plasma uric acid me asurement (mass/volume)Ordered By: HEALTH ASSESSMENT on 01-23-2025 Urate [Mass/Vol] 3.2 mg/dL 2.6-6.0 [facility] Comment on above: The drugs N-Acetylcy steine and Metamizole may falsely depress this assay. Sodium levelOrdered By: HEAL ASSESSMENT on 01-23-2025 Sodium [Moles/Vol] 137 mmol/L 133-145 [facility] Total proteinOrdered By: [facility] ASSESSMENT on 01-23-2025 Protein [Mass/Vol] 7.3 g/dL 5.9-8.4 [facility] Triglycerides measurementOrd ered By: HEALTH ASSESSMENT on 01-23-2025 Triglyceride [Mass/Vol] 57 mg/dL <199 [facility] Comment on above: The drugs N-Acetylcy steine and Metamizole may falsely depress this assay. Normal range: <150 mg/dLBorderline High: 150-199 mg/dLHigh: 200-499 mg/dLVery High: >500 mg/dL Urinalysis, Employeeon 01-23 BILIRUBIN URINE Normal Negative [facility] Comment on above: Order Comment: Urine , Random Result Comment: PT D IDNT WANT UA Performed By: #### L 3100.5475, L100.0100, L501.6710, L505.7010, L101.9900, L4600.0100, L501.1400 #### [facility] [address] [place], [address] Clarity (U) Normal Clear [facility] Comment on above: Order Comment: Urine , Random Result Comment: PT D IDNT WANT UA Performed By: #### L 3100.5475, L100.0100, L501.6710, L505.7010, L101.9900, L4600.0100, L501.1400 #### [facility] [address] [place], [address] Color (U) Normal Yellow [facility] Comment on above: Order Comment: Urine , Random Result Comment: PT D IDNT WANT UA Performed By: #### L 3100.5475, L100.0100, L501.6710, L505.7010, L101.9900, L4600.0100, L501.1400 #### [facility] [address] [place], [address] GLUCOSE, UR Normal Normal [facility] Comment on above: Order Comment: Urine , Random Result Comment: PT D IDNT WANT UA Performed By: #### L 3100.5475, L100.0100, L501.6710, L505.7010, L101.9900, L4600.0100, L501.1400 #### [facility] [address] [place], [address] KETONE UR Normal Negative [facility] Comment on above: Order Comment: Urine , Random Result Comment: PT D IDNT WANT UA Performed By: #### L 3100.5475, L100.0100, L501.6710, L505.7010, L101.9900, L4600.0100, L501.1400 #### [facility] [address] [place], [address] LEUK ESTERASE Normal Negative [facility] Comment on above: Order Comment: Urine , Random Result Comment: PT D IDNT WANT UA Performed By: #### L 3100.5475, L100.0100, L501.6710, L505.7010, L101.9900, L4600.0100, L501.1400 #### [facility] [address] [place], [place], [id number] Nitrite Ql (U) Normal Negative [facility] Comment on above: Order Comment: Urine , Random Result Comment: PT D IDNT WANT UA Performed By: #### L 3100.5475, L100.0100, L501.6710, L505.7010, L101.9900, L4600.0100, L501.1400 #### [facility] [address] [place], [place], [id number] OCCULT BLOOD-UR Normal Negative [facility] Comment on above: Order Comment: Urine , Random Result Comment: PT D IDNT WANT UA Performed By: #### L 3100.5475, L100.0100, L501.6710, L505.7010, L101.9900, L4600.0100, L501.1400 #### [facility] [address] [place], [place], [id number] pH UR Normal 5.0 - 8.0 [facility] Comment on above: Order Comment: Urine , Random Result Comment: PT D IDNT WANT UA Performed By: #### L 3100.5475, L100.0100, L501.6710, L505.7010, L101.9900, L4600.0100, L501.1400 #### [facility] [address] [place], [place], [id number] PROT DIPSTX Normal Negative [facility] Comment on above: Order Comment: Urine , Random Result Comment: PT D IDNT WANT UA Performed By: #### L 3100.5475, L100.0100, L501.6710, L505.7010, L101.9900, L4600.0100, L501.1400 #### [facility] [address] [place], [address] SP.GR. DIPSTX Normal 1.002-1.030 [facility] Comment on above: Order Comment: Urine , Random Result Comment: PT D IDNT WANT UA Performed By: #### L 3100.5475, L100.0100, L501.6710, L505.7010, L101.9900, L4600.0100, L501.1400 #### [facility] [address] [place], [address] UR Preservative Normal [facility] Comment on above: Order Comment: Urine , Random Result Comment: PT D IDNT WANT UA Performed By: #### L 3100.5475, L100.0100, L501.6710, L505.7010, L101.9900, L4600.0100, L501.1400 #### [facility] [address] [place], [address] UROBILI Normal Normal [facility] Comment on above: Order Comment: Urine , Random Result Comment: PT D IDNT WANT UA Performed By: #### L 3100.5475, L100.0100, L501.6710, L505.7010, L101.9900, L4600.0100, L501.1400 #### [facility] [address] [place], [place], [id number] White blood cell (WBC) count Ordered By: HEALTH ASSESSMENT on 01-23-2025 WBC (Bld) [#/Vol] 7.6 10*3/uL 4.4-11.0 [facility] ANTINUCLEAR ANTIBODIES DIRE Ton 01-13-2025 DENISE,DIRECT Negative Normal Negative [facility] Comment on above: Result Comment: Perf ormed at: [facility] [id number] Chlorinator: Graham Kinney PhD, Phone: [phone] Performed By: #### L 3100.5475, L100.0100, L501.6710, L505.7010, L101.9900, L4600.0100, L501.1400 #### [facility] [address] [place], [place], [id number] CCP IgG Antibodieson 025 CCP IgG Ab. 4 units Normal 0-19 [facility] Comment on above: Result Comment: Nega tive <20 Weak positive 20 - 39 Moderate positive 40 - 59 Strong positive >59 Performed at: [address] [id number] Chlorinator: Graham Kinney PhD, Phone: [phone] Performed By: #### L 3100.5475, L100.0100, L501.6710, L505.7010, L101.9900, L4600.0100, L501.1400 #### [facility] [address] [place], [place], [id number] Absolute lymphocyte countOrd ered By: Mela Walker on 01-12-2025 Lymphocytes Auto (Unsp spec) [#/Vol] 2.12 10*3/uL 0.83-4.51 [facility] Absolute neutrophil countOrd ered By: Mela Walker on 01-12-2025 Neutrophils (Bld) [#/Vol] 5.0 10*3/uL 2.0-7.7 [facility] Automated lymphocyte count a s percentage of total leukocytesOrdered By: Mela Walker on 01-12-2025 Lymphocytes/100 WBC Auto (Unsp spec) 27.6 % 19-41 [facility] Basophil percentageOrdered B y: Mela Walker on 01-12-2025 Basophils/100 WBC (Bld) 0.9 % 0-1 [facility] CBC W/Diff, Automatedon 12-17 Absolute Lymph 2.12 X10 3/uL Normal 0.83-4.51 [facility] Comment on above: Performed By: #### L 3100.5475, L100.0100, L501.6710, L505.7010, L101.9900, L4600.0100, L501.1400 #### [facility] [address] [place], [address] Absolute Neut 5.0 X10 3/uL Normal 2.0-7.7 [facility] Comment on above: Performed By: #### L 3100.5475, L100.0100, L501.6710, L505.7010, L101.9900, L4600.0100, L501.1400 #### [facility] [address] [place], [address] Basophils/100 WBC (Bld) 0.9 % Normal 0-1 [facility] Comment on above: Performed By: #### L 3100.5475, L100.0100, L501.6710, L505.7010, L101.9900, L4600.0100, L501.1400 #### [facility] [address] [place], [address] Eosinophils/100 WBC (Bld) 1.8 % Normal 0-5 [facility] Comment on above: Performed By: #### L 3100.5475, L100.0100, L501.6710, L505.7010, L101.9900, L4600.0100, L501.1400 #### [facility] [address] [place], [address] Erythrocyte distribution width (RBC) [Ratio] 14.9 % High 11.6-14.6 [facility] Comment on above: Performed By: #### L 3100.5475, L100.0100, L501.6710, L505.7010, L101.9900, L4600.0100, L501.1400 #### [facility] [address] [place], [address] Hematocrit (Bld) [Volume fraction] 45.6 % Normal 37-47 [facility] Comment on above: Performed By: #### L 3100.5475, L100.0100, L501.6710, L505.7010, L101.9900, L4600.0100, L501.1400 #### [facility] [address] [place], [address] Hemoglobin (Bld) [Mass/Vol] 14.4 g/dL Normal 12.0-15.0 [facility] Comment on above: Performed By: #### L 3100.5475, L100.0100, L501.6710, L505.7010, L101.9900, L4600.0100, L501.1400 #### [facility] [address] [place], [address] IG% 0.500 Normal 0.0-0.9 [facility] Comment on above: Result Comment: IG% - Immature Granulocytes (promyelocytes, myelocytes and metamyelocytes) > 1% indicates that a LEFT SHIFT is Present. Performed By: #### L 3100.5475, L100.0100, L501.6710, L505.7010, L101.9900, L4600.0100, L501.1400 #### [facility] [address] [place], [address] Lymphocytes/100 WBC (Bld) 27.6 % Normal 19-41 [facility] Comment on above: Performed By: #### L 3100.5475, L100.0100, L501.6710, L505.7010, L101.9900, L4600.0100, L501.1400 #### [facility] [address] [place], [address] MCH (RBC) [Entitic mass] 25.5 pg Low 27.0-32.0 [facility] Comment on above: Performed By: #### L 3100.5475, L100.0100, L501.6710, L505.7010, L101.9900, L4600.0100, L501.1400 #### [facility] [address] [place], [address] MCHC (RBC) [Mass/Vol] 31.6 g/dL Low 32-36 [facility] Comment on above: Performed By: #### L 3100.5475, L100.0100, L501.6710, L505.7010, L101.9900, L4600.0100, L501.1400 #### [facility] [address] [place], [address] MCV (RBC) [Entitic vol] 80.9 fL Low 81-99 [facility] Comment on above: Performed By: #### L 3100.5475, L100.0100, L501.6710, L505.7010, L101.9900, L4600.0100, L501.1400 #### [facility] [address] [place], [address] Monocytes/100 WBC (Bld) 3.8 % Normal 0-10 [facility] Comment on above: Performed By: #### L 3100.5475, L100.0100, L501.6710, L505.7010, L101.9900, L4600.0100, L501.1400 #### [facility] [address] [place], [address] Neutrophils/100 WBC (Bld) 65.4 % Normal 47-70 [facility] Comment on above: Performed By: #### L 3100.5475, L100.0100, L501.6710, L505.7010, L101.9900, L4600.0100, L501.1400 #### [facility] [address] [place], [address] Nucleated RBC (Bld) [#/Vol] 0 10*3/uL Normal 0-5 [facility] Comment on above: Performed By: #### L 3100.5475, L100.0100, L501.6710, L505.7010, L101.9900, L4600.0100, L501.1400 #### [facility] [address] [place], [address] Platelet mean volume (Bld) [Entitic vol] 9.6 fL Normal 6.2-12.0 [facility] Comment on above: Performed By: #### L 3100.5475, L100.0100, L501.6710, L505.7010, L101.9900, L4600.0100, L501.1400 #### [facility] [address] [place], [address] Platelets (Bld) [#/Vol] 396 10*3/uL Normal 150-450 [facility] Comment on above: Performed By: #### L 3100.5475, L100.0100, L501.6710, L505.7010, L101.9900, L4600.0100, L501.1400 #### [facility] [address] [place], [address] RBC (Bld) [#/Vol] 5.64 10*6/uL High 4.2-5.4 [facility] Comment on above: Performed By: #### L 3100.5475, L100.0100, L501.6710, L505.7010, L101.9900, L4600.0100, L501.1400 #### [facility] [address] [place], [address] RDW SD 43.4 fl Normal 35.1-43.9 [facility] Comment on above: Performed By: #### L 3100.5475, L100.0100, L501.6710, L505.7010, L101.9900, L4600.0100, L501.1400 #### [facility] [address] [place], [address] WBC (Bld) [#/Vol] 7.7 10*3/uL Normal 4.4-11.0 [facility] Comment on above: Performed By: #### L 3100.5475, L100.0100, L501.6710, L505.7010, L101.9900, L4600.0100, L501.1400 #### [facility] [address] [place], [place], [id number] CRPon 01-12-2025 C-REACTIVE PROT 17.80 mg/L High 0.0-3.0 [facility] Comment on above: Performed By: #### L 3100.5475, L100.0100, L501.6710, L505.7010, L101.9900, L4600.0100, L501.1400 #### [facility] [address] [place], [place], [id number] Eosinophil percentageOrdered By: Mela Walker on 01-12-2025 Eosinophils/100 WBC (Bld) 1.8 % 0-5 [facility] Erythrocyte Sed Rateon 01-12 SED RATE 32 mm/hr High 0-30 [facility] Comment on above: Performed By: #### L 3100.5475, L100.0100, L501.6710, L505.7010, L101.9900, L4600.0100, L501.1400 #### [facility] [address] [place], [place], [id number] Erythrocyte distribution wid th ratioOrdered By: Mela Walker on 01-12-2025 Erythrocyte distribution width (RBC) [Ratio] 14.9 % High 11.6-14.6 [facility] Erythrocyte distribution wid th standard deviationOrdered By: Mela Walker on 01-12-2025 Erythrocyte distribution width (RBC) [Ratio] 43.4 fl 35.1-43.9 [facility] Erythrocyte sedimentation ra teOrdered By: Mela Walker on 01-12-2025 ESR (Bld) [Velocity] 32 mm/h High 0-30 [facility] Hematocrit Auto (Bld) [Volum e fraction]Ordered By: Mela Walker on 01-12-2025 Hematocrit (Bld) [Volume fraction] 45.6 % 37-47 [facility] Hemoglobin measurementOrdere d By: Mela Walker on 01-12-2025 Hemoglobin (Bld) [Mass/Vol] 14.4 g/dL 12.0-15.0 [facility] Immature granulocytes/100 WB C Auto (Bld)Ordered By: Meal Walker on 01-12-2025 Immature granulocytes/100 WBC (Bld) 0.500 % 0.0-0.9 [facility] Comment on above: IG% - Immature Granu locytes (promyelocytes, myelocytes and metamyelocytes) > 1% indicates that a LEFT SHIFT is Present. MCV (mean corpuscular volume ) determinationOrdered By: Mela Walker on 01-12-2025 MCV (RBC) [Entitic vol] 80.9 fL Low 81-99 [facility] Mean corpuscular hemoglobin (MCH) determinationOrdered By: Mela Walker on 01-12-2025 MCH (RBC) [Entitic mass] 25.5 pg Low 27.0-32.0 [facility] Mean corpuscular hemoglobin concentration (MCHC) determinationOrdered By: Mela Walker on 01-12-2025 MCHC (RBC) [Mass/Vol] 31.6 g/dL Low 32-36 [facility] Mean platelet volume determi nationOrdered By: Mela Walker on 01-12-2025 Platelet mean volume (Bld) [Entitic vol] 9.6 fL 6.2-12.0 [facility] Monocyte percentageOrdered B y: Mela Walker on 01-12-2025 Monocytes/100 WBC (Bld) 3.8 % 0-10 [facility] Neutrophil percentageOrdered By: Mela Walker on 01-12-2025 Neutrophils/100 WBC (Bld) 65.4 % 47-70 [facility] Nucleated red blood cell per centageOrdered By: Mela Walker on 01-12-2025 Nucleated RBC/100 WBC (Bld) [Ratio] 0 % 0-5 [facility] Platelet countOrdered By: Geronimo Walker on 01-12-2025 Platelets (Bld) [#/Vol] 396 10*3/uL 150-450 [facility] RBC Auto (Bld) [#/Vol]Ordere d By: Mela Walker on 01-12-2025 RBC (Bld) [#/Vol] 5.64 10*6/uL High 4.2-5.4 [facility] Rheumatoid Factoron 01-13-20 25 RHEUMATOID FAC < 10.0 Normal <15 [facility] Comment on above: Performed By: #### L 3100.5475, L100.0100, L501.6710, L505.7010, L101.9900, L4600.0100, L501.1400 #### [facility] [address] [place], [place], [id number] Serum or plasma C reactive p rotein measurement (mass/volume)Ordered By: Mela Walker on 01-12-2025 CRP [Mass/Vol] 17.80 mg/L High 0.0-3.0 [facility] Serum or plasma cyclic citru llinated peptide IgG antibody assay (units/volume)Ordered By: Mela Walker on 01-12-2025 Cyclic citrullinated peptide IgG Qn 4 units 0-19 [facility] Comment on above: Negative <20 Weak po sitive 20 - 39 Moderate positive 40 - 59 Strong positive >59Performed at: [facility] [id number] Director: Graham Kinney PhD, Phone: [phone] Serum or plasma uric acid me asurement (mass/volume)Ordered By: Mela Walker on 01-12-2025 Urate [Mass/Vol] 4.2 mg/dL 2.6-6.0 [facility] Comment on above: The drugs N-Acetylcy steine and Metamizole may falsely depress this assay. Serum rheumatoid factor dete ctionOrdered By: Mela Walker on 01-12-2025 Rheumatoid factor Ql (S) < 10.0 IU/mL <15 [facility] Uric Acidon 01-12-2025 URIC 4.2 mg/dL Normal 2.6-6.0 [facility] Comment on above: Result Comment: The drugs N-Acetylcysteine and Metamizole may falsely depress this assay. Performed By: #### L 3100.5475, L100.0100, L501.6710, L505.7010, L101.9900, L4600.0100, L501.1400 #### [facility] [address] [place], [address] White blood cell (WBC) count Ordered By: Mela Walker on 01-12-2025 WBC (Bld) [#/Vol] 7.7 10*3/uL 4.4-11.0 [facility] 12 Lead EKGon 12-08-2024 12 Lead EKG [facility] [address] [place] [address] 12 Lead EKG 12/08/24 0759 MR#: [id number] Acct: [id number] Name: FRIDA WIN Rep #: [id number] : 1980 44 From: Sedrick Anglin MD [...] Normal ECG Confirmed by SEDRICK ANGLIN MD ([id number]), field map editor BHASKAR RASHID ([id number]) on 12/09/2024 11:04:54 AM Referred By: Confirmed By: SEDRICK ANGLIN MD 12/09/24 1104 Date Sedrick Anglin MD CC: BRUSH WASHER-C Mela Walker; Dr. Deonte Beckett DO Signed Normal [facility] Absolute lymphocyte countOrd ered By: Deonte Beckett on 12-08-2024 Lymphocytes Auto (Unsp spec) [#/Vol] 1.74 10*3/uL 0.83-4.51 [facility] Absolute neutrophil countOrd ered By: Deonte Beckett on 06-23-2025 Neutrophils (Bld) [#/Vol] 7.4 10*3/uL 2.0-7.7 [facility] Anion gap in Serum or Plasma Ordered By: Deonte Beckett on 12-08-2024 Anion gap [Moles/Vol] 11 mmol/L 5-15 [facility] Automated lymphocyte count a s percentage of total leukocytesOrdered By: Deonte Beckett on 12-08-2024 Lymphocytes/100 WBC Auto (Unsp spec) 17.8 % Low 19- [facility] BUN/creatinine ratioOrdered By: Deonte Beckett on 12-08-2024 Urea nitrogen/Creatinine [Mass ratio] 12.6 mg/mg 10- [facility] Basophil percentageOrdered B y: Deonte Beckett on 12-08-2024 Basophils/100 WBC (Bld) 0.6 % 0-1 [facility] Bilirubin, totalOrdered By: Deonte Beckett on 12-08-2024 Bilirubin [Mass/Vol] 0.37 mg/dL 0.00-1.30 [facility] CBC W/Diff, Automatedon 11-17 Absolute Lymph 1.74 X10 3/uL Normal 0.83-4.51 [facility] Comment on above: Performed By: #### L 3100.5475, L100.0100, L501.6710, L505.7010, L101.9900, L4600.0100, L501.1400 #### [facility] [address] [facility] [place], [address] Absolute Neut 7.4 X10 3/uL Normal 2.0-7.7 [facility] Comment on above: Performed By: #### L 3100.5475, L100.0100, L501.6710, L505.7010, L101.9900, L4600.0100, L501.1400 #### [facility] [address] [facility] [place], [address] Basophils/100 WBC (Bld) 0.6 % Normal 0-1 [facility] Comment on above: Performed By: #### L 3100.5475, L100.0100, L501.6710, L505.7010, L101.9900, L4600.0100, L501.1400 #### [facility] [address] [place], [address] Eosinophils/100 WBC (Bld) 1.1 % Normal 0-5 [facility] Comment on above: Performed By: #### L 3100.5475, L100.0100, L501.6710, L505.7010, L101.9900, L4600.0100, L501.1400 #### [facility] [address] [place], [address] Erythrocyte distribution width (RBC) [Ratio] 14.6 % Normal 11.6-14.6 [facility] Comment on above: Performed By: #### L 3100.5475, L100.0100, L501.6710, L505.7010, L101.9900, L4600.0100, L501.1400 #### [facility] [address] [place], [address] Hematocrit (Bld) [Volume fraction] 44.9 % Normal 37-47 [facility] Comment on above: Performed By: #### L 3100.5475, L100.0100, L501.6710, L505.7010, L101.9900, L4600.0100, L501.1400 #### [facility] [address] [place], [address] Hemoglobin (Bld) [Mass/Vol] 14.4 g/dL Normal 12.0-15.0 [facility] Comment on above: Performed By: #### L 3100.5475, L100.0100, L501.6710, L505.7010, L101.9900, L4600.0100, L501.1400 #### [facility] [address] [place], [address] IG% 0.500 Normal 0.0-0.9 [facility] Comment on above: Result Comment: IG% - Immature Granulocytes (promyelocytes, myelocytes and metamyelocytes) > 1% indicates that a LEFT SHIFT is Present. Performed By: #### L 3100.5475, L100.0100, L501.6710, L505.7010, L101.9900, L4600.0100, L501.1400 #### [facility] [address] [place], [address] Lymphocytes/100 WBC (Bld) 17.8 % Low 19-41 [facility] Comment on above: Performed By: #### L 3100.5475, L100.0100, L501.6710, L505.7010, L101.9900, L4600.0100, L501.1400 #### [facility] [address] [place], [address] MCH (RBC) [Entitic mass] 25.9 pg Low 27.0-32.0 [facility] Comment on above: Performed By: #### L 3100.5475, L100.0100, L501.6710, L505.7010, L101.9900, L4600.0100, L501.1400 #### [facility] [address] [place], [address] MCHC (RBC) [Mass/Vol] 32.1 g/dL Normal 32-36 [facility] Comment on above: Performed By: #### L 3100.5475, L100.0100, L501.6710, L505.7010, L101.9900, L4600.0100, L501.1400 #### [facility] [address] [place], [address] MCV (RBC) [Entitic vol] 80.8 fL Low 81-99 [facility] Comment on above: Performed By: #### L 3100.5475, L100.0100, L501.6710, L505.7010, L101.9900, L4600.0100, L501.1400 #### [facility] [address] [place], [address] Monocytes/100 WBC (Bld) 4.0 % Normal 0-10 [facility] Comment on above: Performed By: #### L 3100.5475, L100.0100, L501.6710, L505.7010, L101.9900, L4600.0100, L501.1400 #### [facility] [address] [place], [address] Neutrophils/100 WBC (Bld) 76.0 % High 47-70 [facility] Comment on above: Performed By: #### L 3100.5475, L100.0100, L501.6710, L505.7010, L101.9900, L4600.0100, L501.1400 #### [facility] [address] [place], [address] Nucleated RBC (Bld) [#/Vol] 0 10*3/uL Normal 0-5 [facility] Comment on above: Performed By: #### L 3100.5475, L100.0100, L501.6710, L505.7010, L101.9900, L4600.0100, L501.1400 #### [facility] [address] [place], [address] Platelet mean volume (Bld) [Entitic vol] 9.5 fL Normal 6.2-12.0 [facility] Comment on above: Performed By: #### L 3100.5475, L100.0100, L501.6710, L505.7010, L101.9900, L4600.0100, L501.1400 #### [facility] [address] [place], [address] Platelets (Bld) [#/Vol] 367 10*3/uL Normal 150-450 [facility] Comment on above: Performed By: #### L 3100.5475, L100.0100, L501.6710, L505.7010, L101.9900, L4600.0100, L501.1400 #### [facility] [address] [place], [address] RBC (Bld) [#/Vol] 5.56 10*6/uL High 4.2-5.4 [facility] Comment on above: Performed By: #### L 3100.5475, L100.0100, L501.6710, L505.7010, L101.9900, L4600.0100, L501.1400 #### [facility] [address] [place], [address] RDW SD 42.7 fl Normal 35.1-43.9 [facility] Comment on above: Performed By: #### L 3100.5475, L100.0100, L501.6710, L505.7010, L101.9900, L4600.0100, L501.1400 #### [facility] [address] [place], [address] (044 WBC (Bld) [#/Vol] 9.8 10*3/uL Normal 4.4-11.0 [facility] Comment on above: Performed By: #### L 3100.5475, L100.0100, L501.6710, L505.7010, L101.9900, L4600.0100, L501.1400 #### [facility] [address] [place], [place], [id number] Carbon dioxide, total [Moles /volume] in Central venous bloodOrdered By: Deonte Beckett on 12-08-2024 CO2 [Moles/Vol] 22.8 mmol/L 21.0-32.0 [facility] Chest 1 View (Portable)on Chest 1 View (Portable) [facility] Imaging Services [address] [place] [address] Chest 1 View (Portable) MR#: [id number] Acct: [id number] Name: FRIDA WIN Rep #: [id number] : 1980 F 44 From: Erickson Silvestre PCP: FILIBERTO Cooper Status: REG ER Study: Chest 1 View (Portable) Date of Exam: 12/08/24 Exam# [id number] Ordering Dr: Deonte Beckett DO PROCEDURE: CHEST [...] acute osseous process is seen. Reading Location: [place] [address] CC: FILIBERTO Walker; Dr. Deonte Beckett DO [employer]: Signed Normal [facility] Chloride assayOrdered By: Cipriano Beckett on 12-08-2024 Chloride [Moles/Vol] 101 mmol/L 98-108 [facility] Comprehensive Metabolic Prof ilon 12-08-2024 Albumin [Mass/Vol] 4.0 g/dL Normal 3.5-5.0 [facility] Comment on above: Performed By: #### L 3100.5475, L100.0100, L501.6710, L505.7010, L101.9900, L4600.0100, L501.1400 #### [facility] [address] [place], [place], [id number] Albumin/Globulin [Mass ratio] 1.2 {ratio} Normal 0.9-2.4 [facility] Comment on above: Performed By: #### L 3100.5475, L100.0100, L501.6710, L505.7010, L101.9900, L4600.0100, L501.1400 #### [facility] [address] [place], [address] ALK PHOS 81 U/L Normal 35-104 [facility] Comment on above: Performed By: #### L 3100.5475, L100.0100, L501.6710, L505.7010, L101.9900, L4600.0100, L501.1400 #### [facility] [address] [place], [address] ALT [Catalytic activity/Vol] 13 U/L Normal <=34 [facility] Comment on above: Performed By: #### L 3100.5475, L100.0100, L501.6710, L505.7010, L101.9900, L4600.0100, L501.1400 #### [facility] [address] [place], [address] AST [Catalytic activity/Vol] 19 U/L Normal <=31 [facility] Comment on above: Result Comment: Hemo lysis present, Results??could be affected. ?? Performed By: #### L 3100.5475, L100.0100, L501.6710, L505.7010, L101.9900, L4600.0100, L501.1400 #### [facility] [address] [place], [address] Bilirubin [Mass/Vol] 0.37 mg/dL Normal 0.00-1.30 [facility] Comment on above: Performed By: #### L 3100.5475, L100.0100, L501.6710, L505.7010, L101.9900, L4600.0100, L501.1400 #### [facility] [address] [place], [address] BUN/CRE 12.6 RATIO Normal 10-20 [facility] Comment on above: Performed By: #### L 3100.5475, L100.0100, L501.6710, L505.7010, L101.9900, L4600.0100, L501.1400 #### [facility] [address] [place], [address] Calcium [Mass/Vol] 9.1 mg/dL Normal 7.6-11.0 [facility] Comment on above: Performed By: #### L 3100.5475, L100.0100, L501.6710, L505.7010, L101.9900, L4600.0100, L501.1400 #### [facility] [address] [place], [address] Chloride [Moles/Vol] 101 mmol/L Normal 98-108 [facility] Comment on above: Performed By: #### L 3100.5475, L100.0100, L501.6710, L505.7010, L101.9900, L4600.0100, L501.1400 #### [facility] [address] [place], [address] CO2 [Moles/Vol] 22.8 mmol/L Normal 21.0-32.0 [facility] Comment on above: Performed By: #### L 3100.5475, L100.0100, L501.6710, L505.7010, L101.9900, L4600.0100, L501.1400 #### [facility] [address] [place], [address] Creatinine [Mass/Vol] 0.68 mg/dL Low 0.70-1.20 [facility] Comment on above: Performed By: #### L 3100.5475, L100.0100, L501.6710, L505.7010, L101.9900, L4600.0100, L501.1400 #### [facility] [address] [place], [address] ECRCL 127.80 ml/min Normal 50-250 [facility] Comment on above: Performed By: #### L 3100.5475, L100.0100, L501.6710, L505.7010, L101.9900, L4600.0100, L501.1400 #### [facility] [address] [place], [address] GAP 11 Normal 5-15 [facility] Comment on above: Performed By: #### L 3100.5475, L100.0100, L501.6710, L505.7010, L101.9900, L4600.0100, L501.1400 #### [facility] [address] [place], [address] GFR/1.73 sq M.predicted among non-blacks MDRD (S/P/Bld) [Vol rate/Area] 111 mL/min/{1.73_m2} Normal >60 [facility] Comment on above: Result Comment: mL/m in/1.73m2 CKD-EPI Creatinine Equation (2020) Performed By: #### L 3100.5475, L100.0100, L501.6710, L505.7010, L101.9900, L4600.0100, L501.1400 #### [facility] [address] [place], [address] Globulin (S) [Mass/Vol] 3.4 g/dL Normal 2.2-4.2 [facility] Comment on above: Performed By: #### L 3100.5475, L100.0100, L501.6710, L505.7010, L101.9900, L4600.0100, L501.1400 #### [facility] [address] [place], [address] Glucose [Mass/Vol] 118 mg/dL High 70-99 [facility] Comment on above: Performed By: #### L 3100.5475, L100.0100, L501.6710, L505.7010, L101.9900, L4600.0100, L501.1400 #### [facility] [address] [place], [address] Potassium [Moles/Vol] 4.5 mmol/L Normal 3.3-5.1 [facility] Comment on above: Result Comment: Hemo lysis present, Results??could be affected. ?? Performed By: #### L 3100.5475, L100.0100, L501.6710, L505.7010, L101.9900, L4600.0100, L501.1400 #### [facility] [address] [place], [address] Sodium [Moles/Vol] 135 mmol/L Normal 133-145 [facility] Comment on above: Performed By: #### L 3100.5475, L100.0100, L501.6710, L505.7010, L101.9900, L4600.0100, L501.1400 #### [facility] [address] [place], [address] T PROT 7.4 g/dL Normal 5.9-8.4 [facility] Comment on above: Performed By: #### L 3100.5475, L100.0100, L501.6710, L505.7010, L101.9900, L4600.0100, L501.1400 #### [facility] [address] [place], [address] Urea nitrogen [Mass/Vol] 9 mg/dL Normal 4-19 [facility] Comment on above: Performed By: #### L 3100.5475, L100.0100, L501.6710, L505.7010, L101.9900, L4600.0100, L501.1400 #### [facility] [address] [place], [address] Emergency Department Summary on 12-08-2024 [facility] [address] [place] [address] Emergency Department Summary 12/08/24 MR#: [id number] Acct: [id number] Name: FRIDA WIN Rep #: [id number] : 1980 44 From: Deonte Beckett DO [...] that this is not unusual for her. 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 NIH is 0 GCS 15 patient completed finger-nose testing bilaterally without any difficulty Skin: Warm (more content not included)... Normal [facility] Eosinophil percentageOrdered By: Deonte Beckett on 12-08-2024 Eosinophils/100 WBC (Bld) 1.1 % 0-5 [facility] Erythrocyte distribution wid th ratioOrdered By: Deonte Beckett on 12-08-2024 Erythrocyte distribution width (RBC) [Ratio] 14.6 % 11.6-14.6 [facility] Erythrocyte distribution wid th standard deviationOrdered By: Deonte Beckett on 12-08-2024 Erythrocyte distribution width (RBC) [Ratio] 42.7 fl 35.1-43.9 [facility] Free T3on 12-08-2024 Free T3 [Mass/Vol] 3.3 pg/mL Normal 2.18-3.98 [facility] Comment on above: Performed By: #### L 3100.5475, L100.0100, L501.6710, L505.7010, L101.9900, L4600.0100, L501.1400 #### [facility] [address] [place], [address] Free C1Fmxnino By: Deonte chuodhary on 12-08-2024 Free T3 [Mass/Vol] 3.3 pg/mL 2.18-3.98 [facility] Glomerular filtration rate ( GFR) estimation/1.73 sq m using serum, plasma, or whole bOrdered By: Deonte Beckett on 12-08-2024 GFR/1.73 sq M.predicted among non-blacks MDRD (S/P/Bld) [Vol rate/Area] 111 mL/min/{1.73_m2} >60 [facility] Comment on above: mL/min/1.73m2 CKD-EP I Creatinine Equation (2020) Hematocrit Auto (Bld) [Volum e fraction]Ordered By: Deonte Beckett on 12-08-2024 Hematocrit (Bld) [Volume fraction] 44.9 % 37-47 [facility] Hemoglobin measurementOrdere d By: Deonte Beckett on 12-08-2024 Hemoglobin (Bld) [Mass/Vol] 14.4 g/dL 12.0-15.0 [facility] Immature granulocytes/100 WB C Auto (Bld)Ordered By: Deonte Beckett on 12-08-2024 Immature granulocytes/100 WBC (Bld) 0.500 % 0.0-0.9 [facility] Comment on above: IG% - Immature Granu locytes (promyelocytes, myelocytes and metamyelocytes) > 1% indicates that a LEFT SHIFT is Present. L499.0042on 12-08-2024 Trop T High Sen < 6 Normal <=14 [facility] Comment on above: Performed By: #### L 3100.5475, L100.0100, L501.6710, L505.7010, L101.9900, L4600.0100, L501.1400 #### [facility] [address] [place], [place], [id number] L499.0043on 12-08-2024 Trop T High Sen Normal <=14 [facility] Comment on above: Result Comment: Canc elled via OM: Order cancelled - Patient discharged Performed By: #### L 3100.5475, L100.0100, L501.6710, L505.7010, L101.9900, L4600.0100, L501.1400 #### [facility] [address] [place], [place], [address] Laboratory - Chemistry and C hemistry - challengeOrdered By: Deonte Beckett on 12-08-2024 AST [Catalytic activity/Vol] 19 U/L <32 [facility] Comment on above: Hemolysis present, R esults could be affected. Lipaseon 12-08-2024 Lipase [Catalytic activity/Vol] 15 U/L Normal 13-75 [facility] Comment on above: Result Comment: Plea se note: LIPASE revised reference range effective 22. New Lipase methodology. Expected to produce lower values than the previous assay method. NEW Reference Range: 13 - 75 U/L Performed By: #### L 3100.5475, L100.0100, L501.6710, L505.7010, L101.9900, L4600.0100, L501.1400 #### [facility] [address] [place], [address] Lipase measurementOrdered By : Deonte Beckett on 12-08-2024 Lipase [Catalytic activity/Vol] 15 U/L 13-75 [facility] Comment on above: Please note:LIPASE r evised reference range effective 22. New Lipase methodology. Expected to produce lower values than the previous assay method. NEW Reference Range: 13 - 75 U/L MCV (mean corpuscular volume ) determinationOrdered By: Deonte Beckett on 12-08-2024 MCV (RBC) [Entitic vol] 80.8 fL Low 81-99 [facility] Mean corpuscular hemoglobin (MCH) determinationOrdered By: Deonte Beckett on 12-08-2024 MCH (RBC) [Entitic mass] 25.9 pg Low 27.0-32.0 [facility] Mean corpuscular hemoglobin concentration (MCHC) determinationOrdered By: Deonte Beckett on 12-08-2024 MCHC (RBC) [Mass/Vol] 32.1 g/dL 32-36 [facility] Mean platelet volume determi nationOrdered By: Deonte Beckett on 12-08-2024 Platelet mean volume (Bld) [Entitic vol] 9.5 fL 6.2-12.0 [facility] Monocyte percentageOrdered B y: Deonte Beckett on 12-08-2024 Monocytes/100 WBC (Bld) 4.0 % 0-10 [facility] Neutrophil percentageOrdered By: Deonte Beckett on 12-08-2024 Neutrophils/100 WBC (Bld) 76.0 % High 47-70 [facility] Nucleated red blood cell per centageOrdered By: Deonte Beckett on 12-08-2024 Nucleated RBC/100 WBC (Bld) [Ratio] 0 % 0-5 [facility] Platelet countOrdered By: Cipriano Beckett on 12-08-2024 Platelets (Bld) [#/Vol] 367 10*3/uL 150-450 [facility] Potassium measurement (mass/ volume)Ordered By: Deonte Beckett on 12-08-2024 Potassium (Unsp spec) [Mass/Vol] 4.5 mmol/L 3.3-5.1 [facility] Comment on above: Hemolysis present, R esults could be affected. ,Serum,hCG Quali.on 12-08-2024 HCG, SERUM QUAL Negative Normal [facility] Comment on above: Performed By: #### L 3100.5475, L100.0100, L501.6710, L505.7010, L101.9900, L4600.0100, L501.1400 #### [facility] [address] [place], [address] RBC Auto (Bld) [#/Vol]Ordere d By: Deonte Beckett on 12-08-2024 RBC (Bld) [#/Vol] 5.56 10*6/uL High 4.2-5.4 [facility] Serum beta-hCG test, qualita tiveOrdered By: Deonte Beckett on 12-08-2024 Beta HCG ( test) Ql Negative [facility] Serum creatinine measurement (mass/volume)Ordered By: Deonte Beckett on 12-08-2024 Creatinine [Mass/Vol] 0.68 mg/dL Low 0.70-1.20 [facility] Serum globulin measurementOr dered By: Deonte Beckett on 12-08-2024 Globulin (S) [Mass/Vol] 3.4 g/dL 2.2-4.2 [facility] Serum glucose measurement (m ass/volume)Ordered By: Deonte Beckett on 12-08-2024 Glucose [Mass/Vol] 118 mg/dL High 70-99 [facility] Serum or plasma alanine zavala otransferase (ALT) measurementOrdered By: Deonte Beckett on 12-08-2024 ALT [Catalytic activity/Vol] 13 U/L <35 [facility] Serum or plasma albumin emanuel urement (mass/volume)Ordered By: Deonte Beckett on 12-08-2024 Albumin [Mass/Vol] 4.0 g/dL 3.5-5.0 [facility] Serum or plasma albumin/glob ulin mass ratioOrdered By: Deonte Beckett on 12-08-2024 Albumin/Globulin [Mass ratio] 1.2 {ratio} 0.9-2.4 [facility] Serum or plasma alkaline treva sphatase measurementOrdered By: Deonte Beckett on 12-08-2024 ALP [Catalytic activity/Vol] 81 U/L 35-104 [facility] Serum or plasma calcium emanuel urement (mass/volume)Ordered By: Deonte Beckett on 12-08-2024 Calcium [Mass/Vol] 9.1 mg/dL 7.6-11.0 [facility] Serum or plasma urea nitroge n measurement (mass/volume)Ordered By: Deonte Beckett on 12-08-2024 Urea nitrogen [Mass/Vol] 9 mg/dL 4-19 [facility] Sodium levelOrdered By: John Beckett on 12-08-2024 Sodium [Moles/Vol] 135 mmol/L 133-145 [facility] T4 Free Directon 12-08-2024 T4 FREE DIRECT 1.10 ng/dL Normal 0.76-1.46 [facility] Comment on above: Performed By: #### L 3100.5475, L100.0100, L501.6710, L505.7010, L101.9900, L4600.0100, L501.1400 #### [facility] [address] [place] [address]. [place], [address] T4 freeOrdered By: Deonte choudhary on 12-08-2024 Free T4 [Mass/Vol] 1.10 ng/dL 0.76-1.46 [facility] TSH DL <= 0.005 mIU/L QnOrde red By: Deonte Beckett on 12-08-2024 TSH Qn 0.674 uIU/mL 0.300-4.200 [facility] Thyroid Stim Hormone (TSH)on 12-08-2024 TSH 0.674 uIU/mL Normal 0.300-4.200 [facility] Comment on above: Performed By: #### L 3100.5475, L100.0100, L501.6710, L505.7010, L101.9900, L4600.0100, L501.1400 #### [facility] [address] [place], [address] Total proteinOrdered By: Lisa Beckett on 12-08-2024 Protein [Mass/Vol] 7.4 g/dL 5.9-8.4 [facility] Troponin T.cardiac [Mass/vol ume] in Serum or Plasma by High sensitivity methodOrdered By: Deonte Beckett on 12-08-2024 Troponin T.cardiac High sensitivity method [Mass/Vol] < 6 ng/L <14 [facility] White blood cell (WBC) count Ordered By: Deonte Beckett on 12-08-2024 WBC (Bld) [#/Vol] 9.8 10*3/uL 4.4-11.0 [facility] Office Visit Reporton 10-14-2024 [facility] Office Visit Report [facility] [address], [address] [place] [address] OFFICE VISIT Date of Service: 10/14/24 MR#: [id number] Acct: [id number] Name: FRIDA WIN Rep #: [id number] : 1980 Provider: FILIBERTO Anguiano Age/Sex: 44/F [place] [facility] [place]: Signed Intake Vital Signs 08/06/23 09:24 10/14/24 15:07 Height 5 ft 3 in 5 ft 3 in Weight: 247 lb BMI 43.7 BP 137/81 H 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 Required: No Is patient in pain?: No [...] : No : No Control Method: 2009 [facility] Medical History (Updated 10/14/24 @ 15:28 by [...] 3 current occupational status: employed 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 Normal [facility] S-I Jts 3 or More Viewson S-I Jts 3 or More Views [facility] Imaging Services [address] [place] [address] S-I Jts 3 or More Views MR#: [id number] Acct: [id number] Name: FRIDA WIN Rep #: [id number] : 1980 F 43 From: Erickson Silvestre PCP: Mela Walker NP-C Status: REG CLI Study: S-I Jts 3 or More Views Date of Exam: 07/30/24 Exam# [id number] Ordering Dr: Mela Walker PROCEDURE: S-I JTS [...] fracture or dislocation is evident. Reading Location: [address] CC: FILIBERTO Walker [employer] Cutter: Signed Normal [facility] CBC W/Diff, Automatedon 02- Absolute Lymph 2.29 X10 3/uL Normal 0.83-4.51 [facility] Comment on above: Performed By: #### L 500.4050, L506.0400, L506.1000, L503.0105, L500.4100, L503.6550, L501.9985, L501.9520, L503.6030, L100.0100, L506.0250 #### [facility] [address] [place], [address] Absolute Neut 6.0 X10 3/uL Normal 2.0-7.7 [facility] Comment on above: Performed By: #### L 500.4050, L506.0400, L506.1000, L503.0105, L500.4100, L503.6550, L501.9985, L501.9520, L503.6030, L100.0100, L506.0250 #### [facility] [address] [place], [address] Basophils/100 WBC (Bld) 0.9 % Normal 0-1 [facility] Comment on above: Performed By: #### L 500.4050, L506.0400, L506.1000, L503.0105, L500.4100, L503.6550, L501.9985, L501.9520, L503.6030, L100.0100, L506.0250 #### [facility] [address] [place], [address] Eosinophils/100 WBC (Bld) 1.2 % Normal 0-5 [facility] Comment on above: Performed By: #### L 500.4050, L506.0400, L506.1000, L503.0105, L500.4100, L503.6550, L501.9985, L501.9520, L503.6030, L100.0100, L506.0250 #### [facility] [address] [place], [place], [id number] (373) Erythrocyte distribution width (RBC) [Ratio] 15.3 % High 11.6-14.6 [facility] Comment on above: Performed By: #### L 500.4050, L506.0400, L506.1000, L503.0105, L500.4100, L503.6550, L501.9985, L501.9520, L503.6030, L100.0100, L506.0250 #### [facility] [address] [place], [place], [id number] (269) Hematocrit (Bld) [Volume fraction] 43.4 % Normal 37-47 [facility] Comment on above: Performed By: #### L 500.4050, L506.0400, L506.1000, L503.0105, L500.4100, L503.6550, L501.9985, L501.9520, L503.6030, L100.0100, L506.0250 #### [facility] [address] [place], [place], [phone] (587) Hemoglobin (Bld) [Mass/Vol] 14.0 g/dL Normal 12.0-15.0 [facility] Comment on above: Performed By: #### L 500.4050, L506.0400, L506.1000, L503.0105, L500.4100, L503.6550, L501.9985, L501.9520, L503.6030, L100.0100, L506.0250 #### [facility] [address] [place], [address] IG% 0.600 Normal 0.0-0.9 [facility] Comment on above: Result Comment: IG% - Immature Granulocytes (promyelocytes, myelocytes and metamyelocytes) > 1% indicates that a LEFT SHIFT is Present. Performed By: #### L 500.4050, L506.0400, L506.1000, L503.0105, L500.4100, L503.6550, L501.9985, L501.9520, L503.6030, L100.0100, L506.0250 #### [facility] [address] [place], [address] Lymphocytes/100 WBC (Bld) 25.7 % Normal 19-41 [facility] Comment on above: Performed By: #### L 500.4050, L506.0400, L506.1000, L503.0105, L500.4100, L503.6550, L501.9985, L501.9520, L503.6030, L100.0100, L506.0250 #### [facility] [address] [place], [address] MCH (RBC) [Entitic mass] 25.7 pg Low 27.0-32.0 [facility] Comment on above: Performed By: #### L 500.4050, L506.0400, L506.1000, L503.0105, L500.4100, L503.6550, L501.9985, L501.9520, L503.6030, L100.0100, L506.0250 #### [facility] [address] [place], [address] MCHC (RBC) [Mass/Vol] 32.3 g/dL Normal 32-36 [facility] Comment on above: Performed By: #### L 500.4050, L506.0400, L506.1000, L503.0105, L500.4100, L503.6550, L501.9985, L501.9520, L503.6030, L100.0100, L506.0250 #### [facility] [address] [place], [address] MCV (RBC) [Entitic vol] 79.6 fL Low 81-99 [facility] Comment on above: Performed By: #### L 500.4050, L506.0400, L506.1000, L503.0105, L500.4100, L503.6550, L501.9985, L501.9520, L503.6030, L100.0100, L506.0250 #### [facility] [address] [place] [place], [address] Monocytes/100 WBC (Bld) 4.4 % Normal 0-10 [facility] Comment on above: Performed By: #### L 500.4050, L506.0400, L506.1000, L503.0105, L500.4100, L503.6550, L501.9985, L501.9520, L503.6030, L100.0100, L506.0250 #### [facility] [address] [place], [address] Neutrophils/100 WBC (Bld) 67.2 % Normal 47-70 [facility] Comment on above: Performed By: #### L 500.4050, L506.0400, L506.1000, L503.0105, L500.4100, L503.6550, L501.9985, L501.9520, L503.6030, L100.0100, L506.0250 #### [facility] [address] [place], [address] Nucleated RBC (Bld) [#/Vol] 0 10*3/uL Normal 0-5 [facility] Comment on above: Performed By: #### L 500.4050, L506.0400, L506.1000, L503.0105, L500.4100, L503.6550, L501.9985, L501.9520, L503.6030, L100.0100, L506.0250 #### [facility] [address] [place], [address] Platelet mean volume (Bld) [Entitic vol] 9.4 fL Normal 6.2-12.0 [facility] Comment on above: Performed By: #### L 500.4050, L506.0400, L506.1000, L503.0105, L500.4100, L503.6550, L501.9985, L501.9520, L503.6030, L100.0100, L506.0250 #### [facility] [address] [place], [address] Platelets (Bld) [#/Vol] 398 10*3/uL Normal 150-450 [facility] Comment on above: Performed By: #### L 500.4050, L506.0400, L506.1000, L503.0105, L500.4100, L503.6550, L501.9985, L501.9520, L503.6030, L100.0100, L506.0250 #### [facility] [address] [place], [address] RBC (Bld) [#/Vol] 5.45 10*6/uL High 4.2-5.4 [facility] Comment on above: Performed By: #### L 500.4050, L506.0400, L506.1000, L503.0105, L500.4100, L503.6550, L501.9985, L501.9520, L503.6030, L100.0100, L506.0250 #### [facility] [address] [place], [place], [id number] RDW SD 43.7 fl Normal 35.1-43.9 [facility] Comment on above: Performed By: #### L 500.4050, L506.0400, L506.1000, L503.0105, L500.4100, L503.6550, L501.9985, L501.9520, L503.6030, L100.0100, L506.0250 #### [facility] [address] [place], [place], [id number] WBC (Bld) [#/Vol] 8.9 10*3/uL Normal 4.4-11.0 [facility] Comment on above: Performed By: #### L 500.4050, L506.0400, L506.1000, L503.0105, L500.4100, L503.6550, L501.9985, L501.9520, L503.6030, L100.0100, L506.0250 #### [facility] [address] [place], [place], [id number] Comprehensive Metabolic Prof ilon 07-22-2024 Albumin [Mass/Vol] 3.5 g/dL Normal 3.2-5.0 [facility] Comment on above: Performed By: #### L 500.4050, L506.0400, L506.1000, L503.0105, L500.4100, L503.6550, L501.9985, L501.9520, L503.6030, L100.0100, L506.0250 #### [facility] [address] [place], [place], [id number] Albumin/Globulin [Mass ratio] 0.8 {ratio} Low 0.9-2.4 [facility] Comment on above: Performed By: #### L 500.4050, L506.0400, L506.1000, L503.0105, L500.4100, L503.6550, L501.9985, L501.9520, L503.6030, L100.0100, L506.0250 #### [facility] [address] [place], [place], [phone] (338) ALK P 82 U/L Normal 45-117 [facility] Comment on above: Performed By: #### L 500.4050, L506.0400, L506.1000, L503.0105, L500.4100, L503.6550, L501.9985, L501.9520, L503.6030, L100.0100, L506.0250 #### [facility] [address] [place], [place], [id number] ALT [Catalytic activity/Vol] 20 U/L Normal 13-56 [facility] Comment on above: Performed By: #### L 500.4050, L506.0400, L506.1000, L503.0105, L500.4100, L503.6550, L501.9985, L501.9520, L503.6030, L100.0100, L506.0250 #### [facility] [address] [place], [place], [id number] AST [Catalytic activity/Vol] 12 U/L Low 15-37 [facility] Comment on above: Performed By: #### L 500.4050, L506.0400, L506.1000, L503.0105, L500.4100, L503.6550, L501.9985, L501.9520, L503.6030, L100.0100, L506.0250 #### [facility] [address] [place], [address] Bilirubin [Mass/Vol] 0.40 mg/dL Normal 0.20-1.00 [facility] Comment on above: Result Comment: For patients on eltrombopag therapy, use of Dimension [place] TBIL is not recommended. Performed By: #### L 500.4050, L506.0400, L506.1000, L503.0105, L500.4100, L503.6550, L501.9985, L501.9520, L503.6030, L100.0100, L506.0250 #### [facility] [address] [place], [address] BUN/CRE 13.6 RATIO Normal 10-20 [facility] Comment on above: Performed By: #### L 500.4050, L506.0400, L506.1000, L503.0105, L500.4100, L503.6550, L501.9985, L501.9520, L503.6030, L100.0100, L506.0250 #### [facility] [address] [place], [address] CA,Total 9.6 mg/dL Normal 8.5-10.1 [facility] Comment on above: Performed By: #### L 500.4050, L506.0400, L506.1000, L503.0105, L500.4100, L503.6550, L501.9985, L501.9520, L503.6030, L100.0100, L506.0250 #### [facility] [address] [place], [address] Chloride [Moles/Vol] 106 mmol/L Normal 98-107 [facility] Comment on above: Performed By: #### L 500.4050, L506.0400, L506.1000, L503.0105, L500.4100, L503.6550, L501.9985, L501.9520, L503.6030, L100.0100, L506.0250 #### [facility] [address] [place], [address] CO2 [Moles/Vol] 27.0 mmol/L Normal 21.0-32.0 [facility] Comment on above: Performed By: #### L 500.4050, L506.0400, L506.1000, L503.0105, L500.4100, L503.6550, L501.9985, L501.9520, L503.6030, L100.0100, L506.0250 #### [facility] [address] [place], [address] Creatinine [Mass/Vol] 0.73 mg/dL Normal 0.55-1.02 [facility] Comment on above: Result Comment: The validity of the calculated GFR GFRAA in patients over 70 years has not been determined. Clinical correlation is essential. Performed By: #### L 500.4050, L506.0400, L506.1000, L503.0105, L500.4100, L503.6550, L501.9985, L501.9520, L503.6030, L100.0100, L506.0250 #### [facility] [address] [place], [address] EST GFR - AA 111 mL/min Normal >60 [facility] Comment on above: Result Comment: Afri can [place] GFR Calc Performed By: #### L 500.4050, L506.0400, L506.1000, L503.0105, L500.4100, L503.6550, L501.9985, L501.9520, L503.6030, L100.0100, L506.0250 #### [facility] [address] [place], [address] GAP 4 Low 5-15 [facility] Comment on above: Performed By: #### L 500.4050, L506.0400, L506.1000, L503.0105, L500.4100, L503.6550, L501.9985, L501.9520, L503.6030, L100.0100, L506.0250 #### [facility] [address] [place], [address] GFR/1.73 sq M.predicted among non-blacks MDRD (S/P/Bld) [Vol rate/Area] 92 mL/min/{1.73_m2} Normal >60 [facility] Comment on above: Result Comment: Non- GFR Calc Performed By: #### L 500.4050, L506.0400, L506.1000, L503.0105, L500.4100, L503.6550, L501.9985, L501.9520, L503.6030, L100.0100, L506.0250 #### [facility] [address] [place], [address] Globulin (S) [Mass/Vol] 4.2 g/dL Normal 2.2-4.2 [facility] Comment on above: Performed By: #### L 500.4050, L506.0400, L506.1000, L503.0105, L500.4100, L503.6550, L501.9985, L501.9520, L503.6030, L100.0100, L506.0250 #### [facility] [address] [place], [address] Glucose [Mass/Vol] 96 mg/dL Normal 74-106 [facility] Comment on above: Performed By: #### L 500.4050, L506.0400, L506.1000, L503.0105, L500.4100, L503.6550, L501.9985, L501.9520, L503.6030, L100.0100, L506.0250 #### [facility] [address] [place], [address] Potassium [Moles/Vol] 4.4 mmol/L Normal 3.5-5.1 [facility] Comment on above: Performed By: #### L 500.4050, L506.0400, L506.1000, L503.0105, L500.4100, L503.6550, L501.9985, L501.9520, L503.6030, L100.0100, L506.0250 #### [facility] [address] [place], [address] Sodium [Moles/Vol] 137 mmol/L Normal 136-145 [facility] Comment on above: Performed By: #### L 500.4050, L506.0400, L506.1000, L503.0105, L500.4100, L503.6550, L501.9985, L501.9520, L503.6030, L100.0100, L506.0250 #### [facility] [address] [place], [address] T PROT 7.7 g/dL Normal 6.4-8.2 [facility] Comment on above: Performed By: #### L 500.4050, L506.0400, L506.1000, L503.0105, L500.4100, L503.6550, L501.9985, L501.9520, L503.6030, L100.0100, L506.0250 #### [facility] [address] [place], [address] Urea nitrogen [Mass/Vol] 10 mg/dL Normal 7-18 [facility] Comment on above: Performed By: #### L 500.4050, L506.0400, L506.1000, L503.0105, L500.4100, L503.6550, L501.9985, L501.9520, L503.6030, L100.0100, L506.0250 #### [facility] [address] [place], [address] Ferritinon 07-22-2024 Ferritin [Mass/Vol] 198 ng/mL Normal 8-252 [facility] Comment on above: Performed By: #### L 3100.5475, L100.0100, L501.6710, L505.7010, L101.9900, L4600.0100, L501.1400 #### [facility] [address] [place], [address] Folates, (Folic Acid)on FOLATES 6.80 ng/mL Normal 3.1-55.4 [facility] Comment on above: Order Comment: N Performed By: #### L 3100.5475, L100.0100, L501.6710, L505.7010, L101.9900, L4600.0100, L501.1400 #### [facility] [address] [place], [address] Hemoglobin A1con 07-22-2024 HbA1c (Bld) [Mass fraction] 5.5 % Normal 3.8-5.6 [facility] Comment on above: Result Comment: Norm al < 5.7 % Prediabetic 5.7 - 6.4 % Diabetic >or= 6.5 % Please note range changes. Performed By: #### L 3100.5475, L100.0100, L501.6710, L505.7010, L101.9900, L4600.0100, L501.1400 #### [facility] [address] [place], [place], [id number] (489) Iron+Iron Binding Capacityon 07-22-2024 Iron [Mass/Vol] 45 ug/dL Low 50-170 [facility] Comment on above: Performed By: #### L 3100.5475, L100.0100, L501.6710, L505.7010, L101.9900, L4600.0100, L501.1400 #### [facility] [address] [place], [address] IRON SATURATION 18.9 Normal 15.0-55.0 [facility] Comment on above: Performed By: #### L 3100.5475, L100.0100, L501.6710, L505.7010, L101.9900, L4600.0100, L501.1400 #### [facility] [facility] [address] [place], [address] TIBC 238 ug/dL Low 250-450 [facility] Comment on above: Performed By: #### L 3100.5475, L100.0100, L501.6710, L505.7010, L101.9900, L4600.0100, L501.1400 #### [facility] [address] [place], [address] Lipid Profileon 07-22-2024 Cholesterol [Mass/Vol] 167 mg/dL Normal 200 [facility] Comment on above: Result Comment: <200 mg/dL Desirable 200-240 mg/dL Borderline >240 mg/dL High Risk Performed By: #### L 500.4050, L506.0400, L506.1000, L503.0105, L500.4100, L503.6550, L501.9985, L501.9520, L503.6030, L100.0100, L506.0250 #### [facility] [address] [place], [address] Cholesterol in HDL [Mass/Vol] 56 mg/dL Normal [facility] Comment on above: Result Comment: The drugs N-Acetylcysteine and Metamizole may falsely depress this assay. Reference Range HDL <40 mg/dL Low HDL Cholesterol HDL >or= 60 mg/dL High HDL Cholesterol Performed By: #### L 500.4050, L506.0400, L506.1000, L503.0105, L500.4100, L503.6550, L501.9985, L501.9520, L503.6030, L100.0100, L506.0250 #### [facility] [address] [place], [address] Cholesterol in LDL [Mass/Vol] 95 mg/dL Normal 0-130 [facility] Comment on above: Performed By: #### L 500.4050, L506.0400, L506.1000, L503.0105, L500.4100, L503.6550, L501.9985, L501.9520, L503.6030, L100.0100, L506.0250 #### [facility] [address] [place], [place], [id number] (854) Cholesterol in VLDL [Mass/Vol] 16 mg/dL Normal 5-40 [facility] Comment on above: Performed By: #### L 500.4050, L506.0400, L506.1000, L503.0105, L500.4100, L503.6550, L501.9985, L501.9520, L503.6030, L100.0100, L506.0250 #### [facility] [address] [place], [place], [id number] (549) Triglyceride [Mass/Vol] 82 mg/dL Normal [facility] Comment on above: Result Comment: The drugs N-Acetylcysteine and Metamizole may falsely depress this assay. Serum Triglycerides Reference Interval Normal <150 mg/dL Borderline high 150 - 199 mg/dL High 200 - 499 mg/dL Very High > or = 500 mg/dL Performed By: #### L 500.4050, L506.0400, L506.1000, L503.0105, L500.4100, L503.6550, L501.9985, L501.9520, L503.6030, L100.0100, L506.0250 #### [facility] [address] [place], [place], [id number] T4 Free Directon 07-22-2024 T4 FREE DIRECT 1.03 ng/dL Normal 0.76-1.46 [facility] Comment on above: Order Comment: N Performed By: #### L 3100.5475, L100.0100, L501.6710, L505.7010, L101.9900, L4600.0100, L501.1400 #### [facility] [address] [place], [address] Thyroid Stim Hormone (TSH)on 07-22-2024 TSH 1.460 uIU/mL Normal 0.358-3.740 [facility] Comment on above: Performed By: #### L 3100.5475, L100.0100, L501.6710, L505.7010, L101.9900, L4600.0100, L501.1400 #### [facility] [address] [place], [address] Vitamin B12on 07-22-2024 Cobalamin (Vitamin B12) [Mass/Vol] 893 pg/mL Normal 211-911 [facility] Comment on above: Performed By: #### L 3100.5475, L100.0100, L501.6710, L505.7010, L101.9900, L4600.0100, L501.1400 #### [facility] [address] [place], [address] Vitamin D,25 Hydroxyon 07-22 Vitamin D 25-OH 31.7 ng/mL Normal [facility] Comment on above: Result Comment: Merari min D 25(OH) Status Range Deficiency <20 ng/mL (50nmol/L) Insufficiency 20 - 30 ng/mL (50 - 75 nmol/L) Sufficiency 30 - 100 ng/mL (75 - 250 nmol/L) Toxicity >100 ng/mL (>250 nmol/L) Performed By: #### L 3100.5475, L100.0100, L501.6710, L505.7010, L101.9900, L4600.0100, L501.1400 #### [facility] [address] 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 Pain Quality: aching and dull Exam Musc [...] CPT Codes Procedures - Manipulation: 3-4 regions (49686) Procedures - Traction, Mechanical: Yes (51905) 05/26/24 1429 Date Priyanka Wilder Signature: Date (if applicable) CC: Normal [facility] Drugs of Abuse Screen, Urine Ordered By: Sharyn Patel on 03-13-2024 Amphetamines Ql (U) Positive Abnormal None Detected [facility] Comment on above: Urine Amphetamine Cu toff: < 1000 ng/mL = None Detected Barbiturates Screen Ql (U) Not detected None Detected [facility] Comment on above: Urine Barbiturates C utoff: < 200 ng/mL = None Detected Benzodiazepines Ql (U) Not detected None Detected [facility] Comment on above: Urine Benzodiazepine Cutoff: < 200 ng/mL = None Detected Buprenorphine Ql (U) Not detected None Detected [facility] Comment on above: Urine Buprenorphine Cutoff: < 5 ng/mL = None Detected Cannabinoids Screen Ql (U) Not detected None Detected [facility] Comment on above: Urine Cannabinoids C utoff: < 50 ng/mL = None Detected Cocaine Ql (U) Not detected None Detected [facility] Comment on above: Urine Cocaine Cutoff : < 300 ng/mL = None Detected fentaNYL+Norfentanyl Screen Ql (U) Not detected None Detected [facility] Comment on above: Urine Fentanyl Cutof f: < 1 ng/mL = None Detected Interpretation and review of laboratory results Abnormal [facility] Methadone Screen Ql (U) Not detected None Detected [facility] Comment on above: Urine Methadone Cuto ff: < 300 ng/mL = None Detected Opiates Screen Ql (U) Not detected None Detected [facility] Comment on above: Urine Opiates Cutoff : < 300 ng/mL = None Detected oxyCODONE Ql (U) Not detected None Detected [facility] Comment on above: Urine Oxycodone Cuto ff: < 100 ng/mL = None Detected Screen results shoul d be used for treatment purposes only. Specimen will be kept for 2 weeks, if the sample is adequate. Confirmation testing can be initiated by calling the lab within 2 weeks. [facility] Absolute lymphocyte counton 06-28-2023 Lymphocytes Auto (Unsp spec) [#/Vol] 2.66 10*3/uL 0.83-4.51 [facility] Basophil percentageon 2023 Basophils/100 WBC (Bld) 0.6 % 0-1 [facility] Bilirubin [Mass/Vol] 0.40 mg/dL 0.20-1.00 [facility] Comment on above: For patients on eltr ombopag therapy, use of Dimension [place] TBIL is not recommended. Chloride [Moles/Vol] 109 mmol/L 98-107 [facility] Cholesterol [Mass/Vol] 156 mg/dL <200 [facility] Comment on above: <200 mg/dL Desirable 200-240 mg/dL Borderline >240 mg/dL High Risk Eosinophils/100 WBC (Bld) 1.3 % 0-5 [facility] Glucose [Mass/Vol] 110 mg/dL 74-106 [facility] Comment on above: Fasting Glucose resu lt from 100 to 125 mg/dL suggests IMPAIRED HOMEOSTASIS per A.D.A. criteria. Neutrophils (Bld) [#/Vol] 7.4 10*3/uL 2.0-7.7 [facility] Neutrophils/100 WBC (Bld) 68.0 % 47-70 [facility] Potassium [Moles/Vol] 4.0 mmol/L 3.5-5.1 [facility] Protein [Mass/Vol] 7.6 g/dL 6.4-8.2 [facility] Sodium [Moles/Vol] 137 mmol/L 136-145 [facility] Triglyceride [Mass/Vol] 72 mg/dL <199 [facility] Comment on above: The drugs N-Acetylcy steine and Metamizole may falsely depress this assay.Serum Triglycerides Reference Interval Normal <150 mg/dL Borderline high 150 - 199 mg/dL High 200 - 499 mg/dL Very High > or = 500 mg/dL WBC (Bld) [#/Vol] 10.9 10*3/uL 4.4-11.0 [facility] Blood erythrocytes count (nu mber/volume)on 06-28-2023 RBC (Bld) [#/Vol] 5.83 10*6/uL 4.2-5.4 [facility] Blood hemoglobin measurement (mass/volume)on 06-28-2023 Hemoglobin (Bld) [Mass/Vol] 15.5 g/dL 12.0-15.0 [facility] Blood lymphocytes/100 leukoc yteson 06-28-2023 Lymphocytes/100 WBC (Bld) 24.5 % 19-41 [facility] Blood monocytes/100 leukocyt eson 06-28-2023 Monocytes/100 WBC (Bld) 5.0 % 0-10 [facility] Blood platelet mean volumeon 06-28-2023 Platelet mean volume (Bld) [Entitic vol] 10.1 fL 6.2-12.0 [facility] Determination of erythrocyte mean corpuscular volume (MCV)on 06-28-2023 MCV (RBC) [Entitic vol] 82.3 fL 81-99 [facility] Folic acid serumon Folate [Mass/Vol] 17.80 ng/mL 3.1-55.4 [facility] Hematocrit Auto (Bld) [Volum e fraction]on 06-28-2023 Hematocrit (Bld) [Volume fraction] 48.0 % 37-47 [facility] Iron measurement (mass/mass) on 06-28-2023 Iron (Unsp spec) [Mass/Mass] 39 ug/dL 50-170 [facility] - Chemistry and C hemistry - challengeon 06-28-2023 ALP [Catalytic activity/Vol] 80 U/L 45-117 [facility] ALT [Catalytic activity/Vol] 20 U/L 13-56 [facility] CO2 [Moles/Vol] 22.0 mmol/L 21.0-32.0 [facility] Cobalamin (Vitamin B12) [Mass/Vol] 382 pg/mL 211-911 [facility] Free T4 [Mass/Vol] 1.10 ng/dL 0.76-1.46 [facility] Globulin (S) [Mass/Vol] 3.9 g/dL 2.2-4.2 [facility] Urea nitrogen/Creatinine [Mass ratio] 12.0 mg/mg 10-20 [facility] - Hematology and Cell countson 06-28-2023 Erythrocyte distribution width (RBC) [Entitic vol] 46.8 fL 35.1-43.9 [facility] Erythrocyte distribution width (RBC) [Ratio] 15.9 % 11.6-14.6 [facility] Immature granulocytes/100 WBC (Bld) 0.600 % 0.0-0.9 [facility] Comment on above: IG% - Immature Granu locytes (promyelocytes, myelocytes and metamyelocytes) > 1% indicates that a LEFT SHIFT is Present. MCH (RBC) [Entitic mass] 26.6 pg 27.0-32.0 [facility] Nucleated RBC/100 WBC (Bld) [Ratio] 0 % 0-5 [facility] MCHC Auto (RBC) [Mass/Vol]on 06-28-2023 MCHC (RBC) [Mass/Vol] 32.3 g/dL 32-36 [facility] No Panel Informationon 06-28 Estimated GFR (MDRD) Amer 109 mL/min >60 [facility] Comment on above: GFR Calc Estimated GFR (MDRD) Non-Af Amer 90 mL/min >60 [facility] Comment on above: Non- GFR Calc Thyroid Stimulating Hormone (TSH) 1.28 uIU/mL 0.358-3.74 [facility] Total Iron Binding Capacity 348 ug/dL 250-450 [facility] Vitamin D 25-Hydroxy 61.3 ng/mL [facility] Comment on above: Vitamin D 25(OH) Sta tus Range Deficiency <20 ng/mL (50nmol/L) Insufficiency 20 - 30 ng/mL (50 - 75 nmol/L) Sufficiency 30 - 100 ng/mL (75 - 250 nmol/L) Toxicity >100 ng/mL (>250 nmol/L) Platelets bldon 06-28-2023 Platelets (Bld) [#/Vol] 373 10*3/uL 150-450 [facility] Serum or plasma albumin emanuel urement (mass/volume)on 06-28-2023 Albumin [Mass/Vol] 3.7 g/dL 3.2-5.0 [facility] Serum or plasma albumin/glob ulin mass ratioon 06-28-2023 Albumin/Globulin [Mass ratio] 0.9 {ratio} 0.9-2.4 [facility] Serum or plasma calcium emanuel urement (mass/volume)on 06-28-2023 Calcium [Mass/Vol] 9.3 mg/dL 8.5-10.1 [facility] Serum or plasma cholesterol in HDL measurement (mass/volume)on 06-28-2023 Cholesterol in HDL [Mass/Vol] 47 mg/dL >40 [facility] Comment on above: The drugs N-Acetylcy steine and Metamizole may falsely depress this assay. Reference Range HDL <40 mg/dL Low HDL Cholesterol HDL >or= 60 mg/dL High HDL Cholesterol Serum or plasma cholesterol in VLDL measurement (mass/volume)on 06-28-2023 Cholesterol in VLDL [Mass/Vol] 14 mg/dL 5-40 [facility] Serum or plasma creatinine m easurement (mass/volume)on 06-28-2023 Creatinine [Mass/Vol] 0.75 mg/dL 0.55-1.02 [facility] Comment on above: The validity of the calculated GFR & GFRAA in patients over 70 years has not been determined. Clinical correlation is essential. Serum or plasma ferritin breanne surement (mass/volume)on 06-28-2023 Ferritin [Mass/Vol] 193 ng/mL 8-252 [facility] Serum or plasma iron saturat ion measurement (mass fraction)on 06-28-2023 Iron saturation [Mass fraction] 11.2 % 15.0-55.0 [facility] Serum or plasma low density lipoprotein (LDL) cholesterol measurement (mass/volume)on 06-28-2023 Cholesterol in LDL [Mass/Vol] 95 mg/dL 0-130 [facility] Serum or plasma urea nitroge n measurement (mass/volume)on 06-28-2023 Urea nitrogen [Mass/Vol] 9 mg/dL 7-18 [facility] Thin prep Papanicolaou smear with manual screeningon 06-28-2023 Thin prep Papanicolaou smear with manual screening 11 U/L 15-37 [facility] Thin prep Papanicolaou smear with manual screening 6 5-15 [facility] Whole blood hemoglobin A1c/t otal hemoglobin ratio (mass fraction)on 06-28-2023 HbA1c (Bld) [Mass fraction] 5.5 % 3.8-5.6 [facility] Comment on above: Normal < 5.7 % Predi abetic 5.7 - 6.4 % Diabetic >or= 6.5 % Please note range changes. COVID-19 virus antigen assay Ordered By: Karlo Good on 03-21-2023 SARS-CoV-2 (COVID-19) Ag IA.rapid Ql (Resp) [facility] SARS-CoV-2 (COVID-19) Ag IA.rapid Ql (Resp) [facility] Absolute lymphocyte countOrd ered By: HEALTH ASSESSMENT on 03-05-2023 Lymphocytes Auto (Unsp spec) [#/Vol] 2.42 10*3/uL 0.83-4.51 [facility] Absolute reticulocyte countO rdered By: HEALTH ASSESSMENT on 03-05-2023 Reticulocytes (Bld) [#/Vol] 0.00 10*3/uL 0-5 [facility] Basophil percentageOrdered B y: HEALTH ASSESSMENT on 03-05-2023 Basophil percentage 1.9 mg/dL 2.5-4.9 [facility] Bilirubin [Mass/Vol] 0.20 mg/dL 0.20-1.00 [facility] Comment on above: For patients on eltr ombopag therapy, use of Dim[place] TBIL is not recommended. Chloride [Moles/Vol] 110 mmol/L 98-107 [facility] Cholesterol [Mass/Vol] 157 mg/dL <200 [facility] Comment on above: <200 mg/dL Desirable 200-240 mg/dL Borderline >240 mg/dL High Risk Glucose [Mass/Vol] 96 mg/dL 74-106 [facility] LDH [Catalytic activity/Vol] 169 U/L 84-246 [facility] Neutrophils (Bld) [#/Vol] 6.6 10*3/uL 2.0-7.7 [facility] Potassium [Moles/Vol] 4.0 mmol/L 3.5-5.1 [facility] Protein [Mass/Vol] 7.6 g/dL 6.4-8.2 [facility] Sodium [Moles/Vol] 138 mmol/L 136-145 [facility] Triglyceride [Mass/Vol] 88 mg/dL <199 [facility] Comment on above: The drugs N-Acetylcy steine and Metamizole may falsely depress this assay.Serum Triglycerides Reference Interval Normal <150 mg/dL Borderline high 150 - 199 mg/dL High 200 - 499 mg/dL Very High > or = 500 mg/dL WBC (Bld) [#/Vol] 9.8 10*3/uL 4.4-11.0 [facility] Blood erythrocytes count (nu mber/volume)Ordered By: HEALTH ASSESSMENT on 03-05-2023 RBC (Bld) [#/Vol] 5.67 10*6/uL 4.2-5.4 [facility] Blood hemoglobin measurement (mass/volume)Ordered By: HEALTH ASSESSMENT on 03-05-2023 Hemoglobin (Bld) [Mass/Vol] 14.9 g/dL 12.0-15.0 [facility] Blood platelet mean volumeOr dered By: HEALTH ASSESSMENT on 03-05-2023 Platelet mean volume (Bld) [Entitic vol] 10.4 fL 6.2-12.0 [facility] COVID-19 virus antigen assay Ordered By: Karlo Good on 03-05-2023 SARS-CoV-2 (COVID-19) Ag IA.rapid Ql (Resp) [facility] SARS-CoV-2 (COVID-19) Ag IA.rapid Ql (Resp) [facility] Determination of erythrocyte mean corpuscular volume (MCV)Ordered By: HEALTH ASSESSMENT on 03-05-2023 MCV (RBC) [Entitic vol] 83.4 fL 81-99 [facility] Direct bilirubinOrdered By: HEALTH ASSESSMENT on 03-05-2023 Bilirubin.direct [Mass/Vol] 0.11 mg/dL 0.00-0.30 [facility] Hematocrit Auto (Bld) [Volum e fraction]Ordered By: HEALTH ASSESSMENT on 03-05-2023 Hematocrit (Bld) [Volume fraction] 47.3 % 37-47 [facility] - Chemistry and C hemistry - challengeOrdered By: HEALTH ASSESSMENT on 03-05-2023 ALP [Catalytic activity/Vol] 89 U/L 45-117 [facility] ALT [Catalytic activity/Vol] 22 U/L 13-56 [facility] Cholesterol.total/Karlie sterol in HDL [Mass ratio] 3.70 {ratio} [facility] CO2 [Moles/Vol] 26.0 mmol/L 21.0-32.0 [facility] Globulin (S) [Mass/Vol] 4.0 g/dL 2.2-4.2 [facility] Urea nitrogen/Creatinine [Mass ratio] 11.4 mg/mg 10-20 [facility] - Hematology and Cell countsOrdered By: HEALTH ASSESSMENT on 03-05-2023 Erythrocyte distribution width (RBC) [Entitic vol] 47.1 fL 35.1-43.9 [facility] Erythrocyte distribution width (RBC) [Ratio] 15.7 % 11.6-14.6 [facility] MCH (RBC) [Entitic mass] 26.3 pg 27.0-32.0 [facility] Nucleated RBC/100 WBC (Bld) [Ratio] 0 % 0-5 [facility] MCHC Auto (RBC) [Mass/Vol]Or dered By: HEALTH ASSESSMENT on 03-05-2023 MCHC (RBC) [Mass/Vol] 31.5 g/dL 32-36 [facility] No Panel InformationOrdered By: HEALTH ASSESSMENT on 03-05-2023 Estimated GFR (MDRD) Amer 103 mL/min >60 [facility] Comment on above: GFR Calc Estimated GFR (MDRD) Non-Af Amer 85 mL/min >60 [facility] Comment on above: Non- GFR Calc Platelets bldOrdered By: [facility] ASSESSMENT on 03-05-2023 Platelets (Bld) [#/Vol] 384 10*3/uL 150-450 [facility] Segmented neutrophils/100 WB C Auto (Bld)Ordered By: HEALTH ASSESSMENT on 03-05-2023 Segmented neutrophils/100 WBC (Bld) 67.7 % 47-70 [facility] Serum or plasma albumin emanuel urement (mass/volume)Ordered By: HEALTH ASSESSMENT on 03-05-2023 Albumin [Mass/Vol] 3.6 g/dL 3.2-5.0 [facility] Serum or plasma albumin/glob ulin mass ratioOrdered By: HEALTH ASSESSMENT on 03-05-2023 Albumin/Globulin [Mass ratio] 0.9 {ratio} 0.9-2.4 [facility] Serum or plasma calcium emanuel urement (mass/volume)Ordered By: HEALTH ASSESSMENT on 03-05-2023 Calcium [Mass/Vol] 8.8 mg/dL 8.5-10.1 [facility] Serum or plasma cholesterol in HDL measurement (mass/volume)Ordered By: HEALTH ASSESSMENT on 03-05-2023 Cholesterol in HDL [Mass/Vol] 43 mg/dL >40 [facility] Comment on above: The drugs N-Acetylcy steine and Metamizole may falsely depress this assay. Reference Range HDL <40 mg/dL Low HDL Cholesterol HDL >or= 60 mg/dL High HDL Cholesterol Serum or plasma cholesterol in VLDL measurement (mass/volume)Ordered By: HEALTH ASSESSMENT on 03-05-2023 Cholesterol in VLDL [Mass/Vol] 18 mg/dL 5-40 [facility] Serum or plasma creatinine m easurement (mass/volume)Ordered By: HEALTH ASSESSMENT on 03-05-2023 Creatinine [Mass/Vol] 0.79 mg/dL 0.55-1.02 [facility] Comment on above: The validity of the calculated GFR & GFRAA in patients over 70 years has not been determined. Clinical correlation is essential. Serum or plasma low density lipoprotein (LDL) cholesterol measurement (mass/volume)Ordered By: HEALTH ASSESSMENT on 03-05-2023 Cholesterol in LDL [Mass/Vol] 96 mg/dL 0-130 [facility] Serum or plasma urea nitroge n measurement (mass/volume)Ordered By: HEALTH ASSESSMENT on 03-05-2023 Urea nitrogen [Mass/Vol] 9 mg/dL 7-18 [facility] Serum or plasma uric acid me asurement (mass/volume)Ordered By: HEALTH ASSESSMENT on 03-05-2023 Urate [Mass/Vol] 4.1 mg/dL 2.6-6.0 [facility] Comment on above: The drugs N-Acetylcy steine and Metamizole may falsely depress this assay. Thin prep Papanicolaou smear with manual screeningOrdered By: HEALTH ASSESSMENT on 03-05-2023 Thin prep Papanicolaou smear with manual screening 13 U/L 15-37 [facility] Thin prep Papanicolaou smear with manual screening 2 5-15 [facility] Absolute lymphocyte counton 08-08-2022 Lymphocytes Auto (Unsp spec) [#/Vol] 2.69 10*3/uL 0.83-4.51 [facility] Basophil percentageon 2022 Basophils/100 WBC (Bld) 0.7 % 0-1 [facility] Bilirubin [Mass/Vol] 0.30 mg/dL 0.20-1.00 [facility] Comment on above: For patients on eltr ombopag therapy, use of Dim[place] TBIL is not recommended. Chloride [Moles/Vol] 109 mmol/L 98-107 [facility] Cholesterol [Mass/Vol] 162 mg/dL <200 [facility] Comment on above: <200 mg/dL Desirable 200-240 mg/dL Borderline >240 mg/dL High Risk Eosinophils/100 WBC (Bld) 1.7 % 0-5 [facility] Glucose [Mass/Vol] 80 mg/dL 74-106 [facility] Neutrophils (Bld) [#/Vol] 5.7 10*3/uL 2.0-7.7 [facility] Neutrophils/100 WBC (Bld) 62.4 % 47-70 [facility] Potassium [Moles/Vol] 4.0 mmol/L 3.5-5.1 [facility] Protein [Mass/Vol] 7.7 g/dL 6.4-8.2 [facility] Sodium [Moles/Vol] 138 mmol/L 136-145 [facility] Triglyceride [Mass/Vol] 115 mg/dL <199 [facility] Comment on above: The drugs N-Acetylcy steine and Metamizole may falsely depress this assay.Serum Triglycerides Reference Interval Normal <150 mg/dL Borderline high 150 - 199 mg/dL High 200 - 499 mg/dL Very High > or = 500 mg/dL WBC (Bld) [#/Vol] 9.2 10*3/uL 4.4-11.0 [facility] Blood erythrocytes count (nu mber/volume)on 08-08-2022 RBC (Bld) [#/Vol] 5.64 10*6/uL 4.2-5.4 [facility] Blood hemoglobin measurement (mass/volume)on 08-08-2022 Hemoglobin (Bld) [Mass/Vol] 15.2 g/dL 12.0-15.0 [facility] Blood lymphocytes/100 leukoc yteson 08-08-2022 Lymphocytes/100 WBC (Bld) 29.2 % 19-41 [facility] Blood monocytes/100 leukocyt eson 08-08-2022 Monocytes/100 WBC (Bld) 5.6 % 0-10 [facility] Blood platelet mean volumeon 08-08-2022 Platelet mean volume (Bld) [Entitic vol] 9.8 fL 6.2-12.0 [facility] Determination of erythrocyte mean corpuscular volume (MCV)on 08-08-2022 MCV (RBC) [Entitic vol] 82.8 fL 81-99 [facility] Hematocrit Auto (Bld) [Volum e fraction]on 08-08-2022 Hematocrit (Bld) [Volume fraction] 46.7 % 37-47 [facility] Iron measurement (mass/mass) on 08-08-2022 Iron (Unsp spec) [Mass/Mass] 41 ug/dL 50-170 [facility] - Chemistry and C hemistry - challengeon 08-08-2022 ALP [Catalytic activity/Vol] 94 U/L 45-117 [facility] ALT [Catalytic activity/Vol] 24 U/L 13-56 [facility] CO2 [Moles/Vol] 25.0 mmol/L 21.0-32.0 [facility] Free T4 [Mass/Vol] 1.00 ng/dL 0.76-1.46 [facility] Globulin (S) [Mass/Vol] 4.2 g/dL 2.2-4.2 [facility] Urea nitrogen/Creatinine [Mass ratio] 12.4 mg/mg 10-20 [facility] - Hematology and Cell countson 08-08-2022 Erythrocyte distribution width (RBC) [Entitic vol] 45.9 fL 35.1-43.9 [facility] Erythrocyte distribution width (RBC) [Ratio] 15.1 % 11.6-14.6 [facility] Immature granulocytes/100 WBC (Bld) 0.400 % 0.0-0.9 [facility] Comment on above: IG% - Immature Granu locytes (promyelocytes, myelocytes and metamyelocytes) > 1% indicates that a LEFT SHIFT is Present. MCH (RBC) [Entitic mass] 27.0 pg 27.0-32.0 [facility] Nucleated RBC/100 WBC (Bld) [Ratio] 0 % 0-5 [facility] MCHC Auto (RBC) [Mass/Vol]on 08-08-2022 MCHC (RBC) [Mass/Vol] 32.5 g/dL 32-36 [facility] [facility] No Panel Informationon 08-08 Estimated GFR (MDRD) Amer 90 mL/min >60 [facility] Comment on above: GFR Calc Estimated GFR (MDRD) Non-Af Amer 75 mL/min >60 [facility] Comment on above: Non- GFR Calc Thyroid Stimulating Hormone (TSH) 1.42 uIU/mL 0.358-3.74 [facility] Total Iron Binding Capacity 253 ug/dL 250-450 [facility] Vitamin D 25-Hydroxy 28.2 ng/mL [facility] Comment on above: Vitamin D 25(OH) Sta tus Range Deficiency <20 ng/mL (50nmol/L) Insufficiency 20 - 30 ng/mL (50 - 75 nmol/L) Sufficiency 30 - 100 ng/mL (75 - 250 nmol/L) Toxicity >100 ng/mL (>250 nmol/L) Platelets bldon 08-08-2022 Platelets (Bld) [#/Vol] 358 10*3/uL 150-450 [facility] Serum or plasma albumin emanuel urement (mass/volume)on 08-08-2022 Albumin [Mass/Vol] 3.5 g/dL 3.2-5.0 [facility] Serum or plasma albumin/glob ulin mass ratioon 08-08-2022 Albumin/Globulin [Mass ratio] 0.8 {ratio} 0.9-2.4 [facility] Serum or plasma calcium emanuel urement (mass/volume)on 08-08-2022 Calcium [Mass/Vol] 9.7 mg/dL 8.5-10.1 [facility] Serum or plasma cholesterol in HDL measurement (mass/volume)on 08-08-2022 Cholesterol in HDL [Mass/Vol] 48 mg/dL >40 [facility] Comment on above: The drugs N-Acetylcy steine and Metamizole may falsely depress this assay. Reference Range HDL <40 mg/dL Low HDL Cholesterol HDL >or= 60 mg/dL High HDL Cholesterol Serum or plasma cholesterol in VLDL measurement (mass/volume)on 08-08-2022 Cholesterol in VLDL [Mass/Vol] 23 mg/dL 5-40 [facility] Serum or plasma creatinine m easurement (mass/volume)on 08-08-2022 Creatinine [Mass/Vol] 0.89 mg/dL 0.55-1.02 [facility] Comment on above: The validity of the calculated GFR & GFRAA in patients over 70 years has not been determined. Clinical correlation is essential. Serum or plasma ferritin breanne surement (mass/volume)on 08-08-2022 Ferritin [Mass/Vol] 212 ng/mL 8-252 [facility] Serum or plasma iron saturat ion measurement (mass fraction)on 08-08-2022 Iron saturation [Mass fraction] 16.2 % 15.0-55.0 [facility] Serum or plasma low density lipoprotein (LDL) cholesterol measurement (mass/volume)on 08-08-2022 Cholesterol in LDL [Mass/Vol] 91 mg/dL 0-130 [facility] Serum or plasma urea nitroge n measurement (mass/volume)on 08-08-2022 Urea nitrogen [Mass/Vol] 11 mg/dL 7-18 [facility] Thin prep Papanicolaou smear with manual screeningon 08-08-2022 Thin prep Papanicolaou smear with manual screening 18 U/L 15-37 [facility] Thin prep Papanicolaou smear with manual screening 4 5-15 [facility] COVID-19 virus antigen assay Ordered By: Dr. Good on 06-29-2022 SARS-CoV-2 (COVID-19) Ag IA.rapid Ql (Resp) [facility] No Panel Informationon 08-15 SARS-CoV-2 Antigen (Rapid) [facility] Work Phone: Provider Note - ED [...] SIGNS: T PRBP SpO2O2(LPM) %FiO2 Method 03-Aug-2021 13:12:[id number] 96RA [facility] MDM/ED COURSE: 1) Left Acute SIJ dysfunction: [...] vital signs PROGRESS NOTE Procedure performed by: va Video Game Technician(s): (Conchita Genao, TOMMY-S) Findings: grossly normal anatomy Specimen: no Estimated [...] Updated: 03-Aug-2021 14:29 by Deonte Dsouza (PAC) [facility] No Panel Informationon 07-14 SARS-CoV-2 Antigen (Rapid) [facility] Work Phone: Absolute lymphocyte counton 07-01-2021 Lymphocytes Auto (Unsp spec) [#/Vol] 2.53 10*3/uL 0.83-4.51 [facility] Work Phone: Basophil percentageon 2021 Basophils/100 WBC (Bld) 0.6 % 0-1 [facility] Work Phone: Bilirubin [Mass/Vol] 0.30 mg/dL 0.20-1.00 [facility] Work Phone: Comment on above: For patients on eltr ombopag therapy, use of Dimension [place] TBIL is not recommended. Chloride [Moles/Vol] 103 mmol/L 98-107 [facility] Work Phone: Cholesterol [Mass/Vol] 154 mg/dL <200 [facility] Work Phone: Comment on above: <200 mg/dL Desirable 200-240 mg/dL Borderline >240 mg/dL High Risk Eosinophils/100 WBC (Bld) 1.2 % 0-5 [facility] Work Phone: Glucose [Mass/Vol] 103 mg/dL 74-106 [facility] Work Phone: Comment on above: Fasting Glucose resu lt from 100 to 125 mg/dL suggests IMPAIRED HOMEOSTASIS per A.D.A. criteria. Neutrophils (Bld) [#/Vol] 7.7 10*3/uL 2.0-7.7 [facility] Work Phone: Neutrophils/100 WBC (Bld) 68.8 % 47-70 [facility] Work Phone: Potassium [Moles/Vol] 4.0 mmol/L 3.5-5.1 [facility] Work Phone: Protein [Mass/Vol] 8.1 g/dL 6.4-8.2 [facility] Work Phone: [phone] Sodium [Moles/Vol] 136 mmol/L 136-145 [facility] Work Phone: [phone] Triglyceride [Mass/Vol] 86 mg/dL [facility] Work Phone: Comment on above: The drugs N-Acetylcy steine and Metamizole may falsely depress this assay.Serum Triglycerides Reference Interval Normal <150 mg/dL Borderline high 150 - 199 mg/dL High 200 - 499 mg/dL Very High > or = 500 mg/dL WBC (Bld) [#/Vol] 11.2 10*3/uL 4.4-11.0 [facility] Work Phone: Blood erythrocytes count (nu mber/volume)on 07-01-2021 RBC (Bld) [#/Vol] 5.70 10*6/uL 4.2-5.4 [facility] Work Phone: Blood hemoglobin measurement (mass/volume)on 07-01-2021 Hemoglobin (Bld) [Mass/Vol] 15.0 g/dL 12.0-15.0 [facility] Work Phone: [phone] Blood lymphocytes/100 leukoc yteson 07-01-2021 Lymphocytes/100 WBC (Bld) 22.7 % 19-41 [facility] Work Phone: [phone] Blood monocytes/100 leukocyt eson 07-01-2021 Monocytes/100 WBC (Bld) 6.3 % 0-10 [facility] Work Phone: [phone] Blood platelet mean volumeon 07-01-2021 Platelet mean volume (Bld) [Entitic vol] 9.9 fL 6.2-12.0 [facility] Work Phone: [phone] Determination of erythrocyte mean corpuscular volume (MCV)on 07-01-2021 MCV (RBC) [Entitic vol] 81.1 fL 81-99 [facility] Work Phone: [phone] Hematocrit Auto (Bld) [Volum e fraction]on 07-01-2021 Hematocrit (Bld) [Volume fraction] 46.2 % 37-47 [facility] Work Phone: [phone] Iron measurement (mass/mass) on 07-01-2021 Iron (Unsp spec) [Mass/Mass] 29 ug/dL 50-170 [facility] Work Phone: [phone] Laboratory - Chemistry and C hemistry - challengeon 07-01-2021 ALP [Catalytic activity/Vol] 85 U/L 45-117 [facility] Work Phone: [phone] ALT [Catalytic activity/Vol] 29 U/L 13-56 [facility] Work Phone: [phone] CO2 [Moles/Vol] 29.0 mmol/L 21.0-32.0 [facility] Work Phone: [phone] Cobalamin (Vitamin B12) [Mass/Vol] 388 pg/mL 211-911 [facility] Work Phone: [phone] Free T4 [Mass/Vol] 1.29 ng/dL 0.76-1.46 [facility] Work Phone: [phone] Globulin (S) [Mass/Vol] 4.1 g/dL 2.2-4.2 [facility] Work Phone: [phone] Urea nitrogen/Creatinine [Mass ratio] 19.4 mg/mg 10-20 [facility] Work Phone: [phone] Laboratory - Hematology and Cell countson 07-01-2021 Erythrocyte distribution width (RBC) [Entitic vol] 42.8 fL 35.1-43.9 [facility] Work Phone: [phone] Erythrocyte distribution width (RBC) [Ratio] 14.7 % 11.6-14.6 [facility] Work Phone: [phone] Immature granulocytes/100 WBC (Bld) 0.400 % 0.0-0.9 [facility] Work Phone: [phone] Comment on above: IG% - Immature Granu locytes (promyelocytes, myelocytes and metamyelocytes) > 1% indicates that a LEFT SHIFT is Present. MCH (RBC) [Entitic mass] 26.3 pg 27.0-32.0 [facility] Work Phone: [phone] Nucleated RBC/100 WBC (Bld) [Ratio] 0 % 0-5 [facility] Work Phone: [phone] MCHC Auto (RBC) [Mass/Vol]on 07-01-2021 MCHC (RBC) [Mass/Vol] 32.5 g/dL 32-36 [facility] Work Phone: [phone] No Panel Informationon 07-01 Estimated GFR (MDRD) Amer 115 mL/min >60 [facility] Work Phone: [phone] Comment on above: GFR Calc Estimated GFR (MDRD) Non-Af Amer 95 mL/min >60 [facility] Work Phone: Comment on above: Non- GFR Calc Thyroid Stimulating Hormone (TSH) 2.66 uIU/mL 0.358-3.74 [facility] Work Phone: Total Iron Binding Capacity 282 ug/dL 250-450 [facility] Work Phone: [phone] Vitamin D 25-Hydroxy 23.2 ng/mL [facility] Work Phone: Comment on above: Vitamin D 25(OH) Sta tus Range Deficiency <20 ng/mL (50nmol/L) Insufficiency 20 - 30 ng/mL (50 - 75 nmol/L) Sufficiency 30 - 100 ng/mL (75 - 250 nmol/L) Toxicity >100 ng/mL (>250 nmol/L) Platelets bldon 07-01-2021 Platelets (Bld) [#/Vol] 347 10*3/uL 150-450 [facility] Work Phone: [phone] Serum or plasma albumin emanuel urement (mass/volume)on 07-01-2021 Albumin [Mass/Vol] 4.0 g/dL 3.2-5.0 [facility] Work Phone: Serum or plasma albumin/glob ulin mass ratioon 07-01-2021 Albumin/Globulin [Mass ratio] 1.0 {ratio} 0.9-2.4 [facility] Work Phone: Serum or plasma calcium emanuel urement (mass/volume)on 07-01-2021 Calcium [Mass/Vol] 9.9 mg/dL 8.5-10.1 [facility] Work Phone: [phone] Serum or plasma cholesterol in HDL measurement (mass/volume)on 07-01-2021 Cholesterol in HDL [Mass/Vol] 44 mg/dL [facility] Work Phone: Comment on above: The drugs N-Acetylcy steine and Metamizole may falsely depress this assay. Reference Range HDL <40 mg/dL Low HDL Cholesterol HDL >or= 60 mg/dL High HDL Cholesterol Serum or plasma cholesterol in VLDL measurement (mass/volume)on 07-01-2021 Cholesterol in VLDL [Mass/Vol] 17 mg/dL 5-40 [facility] Work Phone: [phone] Serum or plasma creatinine m easurement (mass/volume)on 07-01-2021 Creatinine [Mass/Vol] 0.72 mg/dL 0.55-1.02 [facility] Work Phone: Comment on above: The validity of the calculated GFR & GFRAA in patients over 70 years has not been determined. Clinical correlation is essential. Serum or plasma ferritin breanne surement (mass/volume)on 07-01-2021 Ferritin [Mass/Vol] 171 ng/mL 8-252 [facility] Work Phone: Serum or plasma iron saturat ion measurement (mass fraction)on 07-01-2021 Iron saturation [Mass fraction] 10.3 % 15.0-55.0 [facility] Work Phone: Serum or plasma low density lipoprotein (LDL) cholesterol measurement (mass/volume)on 07-01-2021 Cholesterol in LDL [Mass/Vol] 93 mg/dL 0-130 [facility] Work Phone: Serum or plasma urea nitroge n measurement (mass/volume)on 07-01-2021 Urea nitrogen [Mass/Vol] 14 mg/dL 7-18 [facility] Work Phone: Thin prep Papanicolaou smear with manual screeningon 07-01-2021 Thin prep Papanicolaou smear with manual screening 12 U/L 15-37 [facility] Work Phone: [phone] Thin prep Papanicolaou smear with manual screening 4 5-15 [facility] Work Phone: [phone] Laboratory - Microbiology an d Antimicrobial susceptibilityon 06-26-2021 SARS-CoV-2 (COVID-19) RNA CARMITA+probe Ql (Unsp spec) Not detected [facility] Work Phone: [phone] SARS coronavirus RNA [Presen ce] in Unspecified specimen by CARMITA with probe detectionon 06-16-2021 SARS-CoV RNA CARMITA+probe Ql (Unsp spec) Not detected Not Detected [facility] Work Phone: Comment on above: This [...] of in vitro diagnostic tests for detection [id number] virus and/or diagnosis of COVID-19 infectionunder section [...] No Panel Informationon 06-14 SARS-CoV-2 Antigen (Rapid) [facility] Work Phone: CBC AND DIFFERENTIALon 11-17 DIFFERENTIAL SEE MANUAL DIFF Normal [facility] Comment on above: Performed By: #### C BCDF #### [address] [address] Erythrocyte distribution width (RBC) [Ratio] 14.6 % High 11.5 - 14.5 [facility] Comment on above: Performed By: #### C BCDF #### [address] [address] Hematocrit (Bld) [Volume fraction] 48.5 % High 36.0 - 46.0 [facility] Comment on above: Performed By: #### C BCDF #### [address] [address] Hemoglobin (Bld) [Mass/Vol] 15.8 g/dL Normal 12.0 - 16.0 [facility] Comment on above: Performed By: #### C BCDF #### [address] [address] MCHC (RBC) [Mass/Vol] 32.6 g/dL Normal 32.0 - 36.0 [facility] Comment on above: Performed By: #### C BCDF #### [address] [address] MCV (RBC) [Entitic vol] 83 fL Normal 80 - 100 [facility] Comment on above: Performed By: #### C BCDF #### [address] [address] NUCLEATED RBC 0.1 /100 WBC Normal [facility] Comment on above: Performed By: #### C BCDF #### [address] [address] Platelets (Bld) [#/Vol] 344 10*3/uL Normal 150 - 450 [facility] Comment on above: Performed By: #### C BCDF #### [place] [id number] RBC 5.87 x10E12/L High 4.00 - 5.20 [facility] Comment on above: Performed By: #### C BCDF #### [address] [address] WBC (Bld) [#/Vol] 10.4 10*3/uL Normal 4.4 - 11.3 [facility] Comment on above: Performed By: #### C BCDF #### [place] [id number] COMPREHENSIVE PANELon 2020 Albumin [Mass/Vol] 4.5 g/dL Normal 3.4 - 5.0 [facility] Comment on above: Performed By: #### C MP ####[address] [address] ALP [Catalytic activity/Vol] 72 U/L Normal 33 - 110 [facility] Comment on above: Performed By: #### C MP ####[place] [id number] ALT [Catalytic activity/Vol] 27 U/L Normal 7 - 45 [facility] Comment on above: Result Comment: Zhanna ents treated with Sulfasalazine may generate falsely decreased results for ALT. Performed By: #### C MP ####[address] [address] Anion gap [Moles/Vol] 10 mmol/L Normal 10 - 20 [facility] Comment on above: Performed By: #### C MP ####[address] [address] AST [Catalytic activity/Vol] 18 U/L Normal 9 - 39 [facility] Comment on above: Performed By: #### C MP ####[address] [address] Bilirubin [Mass/Vol] 0.5 mg/dL Normal 0.0 - 1.2 [facility] Comment on above: Performed By: #### C MP ####[place] [address] Calcium [Mass/Vol] 9.6 mg/dL Normal 8.6 - 10.3 [facility] Comment on above: Performed By: #### C MP ####[address] [address] Chloride [Moles/Vol] 101 mmol/L Normal 98 - 107 [facility] Comment on above: Performed By: #### C MP ####[address] [address] Creatinine [Mass/Vol] 0.66 mg/dL Normal 0.50 - 1.05 [facility] Comment on above: Performed By: #### C MP ####[address] [address] GFR- AM. >60 Normal >60 [facility] Comment on above: Result Comment: CALC ULATIONS OF ESTIMATED GFR ARE PERFORMED USING THE MDRD STUDY EQUATION FOR THE IDMS-TRACEABLE CREATININE METHODS. CLIN CHEM 2007;53:766-72 Performed By: #### C MP ####[address] [address] GFR-NON AM. >60 Normal >60 [facility] Comment on above: Performed By: #### C MP ####[address] [address] Glucose [Mass/Vol] 110 mg/dL High 74 - 99 [facility] Comment on above: Performed By: #### C MP ####[address] [address] HCO3 (Bld) [Moles/Vol] 30 mmol/L Normal 21 - 32 [facility] Comment on above: Performed By: #### C MP ####[address] [address] Potassium [Moles/Vol] 3.9 mmol/L Normal 3.5 - 5.3 [facility] Comment on above: Performed By: #### C MP ####[address] [address] Protein [Mass/Vol] 7.4 g/dL Normal 6.4 - 8.2 [facility] Comment on above: Performed By: #### C MP ####[address] [address] Sodium [Moles/Vol] 137 mmol/L Normal 136 - 145 [facility] Comment on above: Performed By: #### C MP ####[address] [address] Urea nitrogen [Mass/Vol] 10 mg/dL Normal 6 - 23 [facility] Comment on above: Performed By: #### C MP ####[address] [address] CORONAVIRUS 2019 BY PCRon SARS-CoV-2 (COVID-19) RNA CARMITA+probe Ql (Unsp spec) Not detected Normal Not Detected [facility] Comment on above: Result Comment: . This test has received FDA Emergency Use Authorization (EUA) and has been verified by [facility]. This test is only authorized for the duration of time that circumstances exist to justify the authorization of the emergency use of in vitro diagnostic tests for the detection of SARS-CoV-2 virus and/or diagnosis of COVID-19 infection under section 564(b)(1) of the Act, 21 U.S.C. 360bbb-3(b)(1), unless the authorization is terminated or revoked sooner. [facility] is certified under CLIA-88 as qualified to perform high complexity testing. Testing is performed in the [facility] laboratory located at [address] [place] [address]. SARS-CoV-2/Flu/RSV Multiplex Test: Fact sheet for providers: https://www.fda.gov/media/485162/download Fact sheet for patients: https://www.fda.gov/media/395215/download Performed By: #### C OV19 ####[place] [address] Lab Specimen Source Nasal, Nasopharyngeal Normal [facility] Comment on above: Performed By: #### C OV19 ####[place] [address] Covid 19 Resultson 1 SARS-CoV-2 (COVID-19) RNA [...] You may also be contacted by the [facility] to see if any of [...] or Naproxen (Aleve) can also be used. Tdzq-oxg-oljttip cough and cold medicines can be used according to the instructions on the package. Some kdvw-xru-ptcgeaa medicines also contain acetaminophen. Make sure you [...] water are not available, use alcohol-based hand motor vehicle or caravan salesperson. Avoid touching your eyes, nose, and mouth [...] 24 pattie (more content not included)... Normal [facility] LACTATEon 11-17-2020 Lactate [Moles/Vol] 0.9 mmol/L Normal 0.4 - 2.0 [facility] Comment on above: Result Comment: Abril puncture immediately after or during the administration of Metamizole may lead to falsely low results. Testing should be performed immediately prior to Metamizole dosing. Performed By: #### L ACT #### [facility] [address] [place] [address] LIPASEon 11-17-2020 Lipase [Catalytic activity/Vol] 8 U/L Low 9 - 82 [facility] Comment on above: Result Comment: Abril puncture immediately after or during the administration of Metamizole may lead to falsely low results. Testing should be performed immediately prior to Metamizole dosing. L-zqncyy-h-benzoquinone imine (metabolite of Acetaminophen) will generate erroneously low results in samples for patients that have taken toxic doses of acetaminophen. Performed By: #### L IPAS #### [address] [address] MANUAL DIFFERENTIALon 2020 % BAND NEUTROPHIL 2.0 % Normal 0.0 - 5.0 [facility] Comment on above: Performed By: #### M DIFF #### [address] [address] % BASOPHIL 0.0 % Normal 0.0 - 2.0 [facility] Comment on above: Performed By: #### M DIFF #### [address] [address] % EOSINOPHIL 1.0 % Normal 0.0 - 6.0 [facility] Comment on above: Performed By: #### M DIFF #### [address] [address] % LYMPH-ATYPICAL 5.0 % Normal 0.0 - 2.0 [facility] Comment on above: Performed By: #### M DIFF #### [address] [address] % LYMPHOCYTE 15.0 % Normal 13.0 - 44.0 [facility] Comment on above: Performed By: #### M DIFF #### [address] [address] % MONOCYTE 4.0 % Normal 2.0 - 10.0 [facility] Comment on above: Performed By: #### M DIFF #### [address] [address] % SEG NEUTROPHIL 73.0 % Normal 40.0 - 80.0 [facility] Comment on above: Result Comment: Perc ent differential counts (%) should be interpreted in the context of the absolute cell counts (cells/L). Performed By: #### M DIFF #### [address] [address] ANC 7.80 x10E9/L High 1.20 - 7.70 [facility] Comment on above: Performed By: #### M DIFF #### [address] [address] BAND NEUTROPHIL 0.21 x10E9/L Normal 0.00 - 0.70 [facility] Comment on above: Performed By: #### M DIFF #### [place] [address] BASOPHIL 0.00 x10E9/L Normal 0.00 - 0.10 [facility] Comment on above: Performed By: #### M DIFF #### [place] [address] EOSINOPHIL 0.10 x10E9/L Normal 0.00 - 0.70 [facility] Comment on above: Performed By: #### M DIFF #### [place] [address] LYMPH-ATYPICAL 0.52 x10E9/L High 0.00 - 0.50 [facility] Comment on above: Performed By: #### M DIFF #### [place] [address] LYMPHOCYTE 1.56 x10E9/L Normal 1.20 - 4.80 [facility] Comment on above: Performed By: #### M DIFF #### [place] [address] MONOCYTE 0.42 x10E9/L Normal 0.10 - 1.00 [facility] Comment on above: Performed By: #### M DIFF #### [place] [address] SEG NEUTROPHIL 7.59 x10E9/L High 1.20 - 7.00 [facility] Comment on above: Performed By: #### M DIFF #### [place] [address] Provider Note - ED v2on 060 Provider Note - ED v2 Provider Note [...] documented data. SIGNIFICANT EVENTS: No documented data. WEB COORDINATOR: Is : no(1) Is : no(1) REVIEW OF SYSTEMS GASTROINTESTINAL: POSITIVE for: abdominal pain, nausea and vomiting; All other systems reviewed and are negative RESULTS/VITAL SIGNS RESULTS: Radiology Results: Impression: Borderline size of the liver. No focal hepatic lesion identified. Negative gallbladder. No biliary dilation. Subvisualization of the pancreas. Ultrasound Gallbladder [Nov 17 2020 10:40AM] VITAL SIGNS: T PRBP SpO2O2(LPM) %FiO2 Method 17-Nov-2020 09:45:[id number] 100 room air, no respiratory support 02-Jona-2021 07:01:[id number] 98 PHYSICAL EXAM CONSTITUTIONAL: Well appearing, well [...] From Triage - ED 17-Nov-2020 07:01 Normal [facility] RED CELL MORPHOLOGYon 2020 RBC morphology finding Nom (Bld) NORMAL Normal [facility] Comment on above: Performed By: #### M ORP2 #### [facility] [address] [place] [address] Triage - EDon 11-17-2020 Triage - ED [...] BMI (kg/m2): 32.812 Calculated BSA (m2) 1.93 [place] Coma Scale: Best Eye Response: (E4) spontaneous Best Motor Response: (M6) obeys commands Best Verbal Response: (V5) oriented [place] Score: 15 Allergies: no Mask applied: yes WEB COORDINATOR History: hysterectomy Patient has homicidal thoughts: no [...] 07:06 by Jose Alejandro Fontenot (ERIK) Normal [facility] UA MICROSCOPICon 11-17-2020 Mucus Ql (Urine sed) 3+ /LPF Normal [facility] Comment on above: Performed By: #### U AMIC #### [place] [address] RBC 1 /HPF Normal 0-5 [facility] Comment on above: Performed By: #### U AMIC #### [place] [address] SQUAMOUS EPITH. CELLS 6 /HPF Normal [facility] Comment on above: Performed By: #### U AMIC #### [place] [address] WBC 3 /HPF Normal 0-5 [facility] Comment on above: Performed By: #### U AMIC #### [place] [address] URINALYSISon 11-17-2020 Appearance (U) HAZY Normal CLEAR [facility] Comment on above: Performed By: #### U A #### [place] [address] Bilirubin Ql (U) Negative Normal NEGATIVE [facility] Comment on above: Performed By: #### U A #### [place] [address] Color (U) Yellow Normal STRAW,YELLO W [facility] Comment on above: Performed By: #### U A #### [address] [address] Glucose Ql (U) Negative Normal NEGATIVE [facility] Comment on above: Performed By: #### U A #### [address] [address] Hemoglobin Ql (U) Negative Normal NEGATIVE [facility] Comment on above: Performed By: #### U A #### [place] [address] Ketones Ql (U) Negative Normal NEGATIVE [facility] Comment on above: Performed By: #### U A #### [place] [address] Leukocyte esterase Test strip Ql (U) Negative Normal NEGATIVE [facility] Comment on above: Performed By: #### U A #### [place] [address] Nitrite Ql (U) Negative Normal NEGATIVE [facility] Comment on above: Performed By: #### U A #### [place] [address] pH (U) 7.0 [pH] Normal 5.0 - 8.0 [facility] Comment on above: Performed By: #### U A #### [place] [address] Protein Ql (U) 30(1+) Abnormal NEGATIVE [facility] Comment on above: Performed By: #### U A #### [place] [address] Specific gravity (U) [Rel density] 1.021 Normal 1.005 - 1.035 [facility] Comment on above: Performed By: #### U A #### [place] [id number] Urobilinogen (U) [Mass/Vol] mg/dL Normal 0.0 - 1.9 [facility] Comment on above: Performed By: #### U A #### [place] [id number] US GALLBLADDERon 11-17-2020 US GALLBLADDER Patient Name: FRIDA WIN STUDY: US GALLBLADDER; 11/17/2020 10:34 am INDICATION: stable. Nausea with vomiting. COMPARISON: None. ACCESSION NUMBER(S): [id number] ORDERING CLINICIAN: JENNY GIANG TECHNIQUE: Real-time sonographic [...] pancreas. Electronically signed by: SYDNIE ROSE MD [facility] CHEST PA AND LATERALon 02-13 CHEST PA AND LATERAL Final ReportAccession No: [id number] Performed: Feb 13 2018 9:12AMExamination: CHEST PA AND LATERALEXAMINATION: CHEST PA AND LATERALHISTORY: PhysicalTECHNIQUE: Frontal and lateral chest radiographs.COMPARISON: Chest radiographs dated 02/27/2012.FINDINGS: No focal consolidation, pleural effusion or pneumothorax. Thecardiomediastinal silhouette is normal in size. No acute osseousabnormality.IMPR ESSION:No acute cardiopulmonary process.Interpreting Physician: ESTELA LARIOS M.D.Trans: jankik : cc: Normal [facility] Lipid Panelon 02-13-2018 Cholesterol in HDL mass conc 42 mg/dL Invalid Interpretation Code 40 - 59 mg/dL [facility] Cholesterol in LDL mass conc 90 mg/dL Invalid Interpretation Code 10 - 150 mg/dL [facility] Cholesterol in VLDL mass conc 19 mg/dL Invalid Interpretation Code 5 - 40 mg/dL [facility] Cholesterol mass conc 150 mg/dL Invalid Interpretation Code 100 - 199 mg/dL [facility] Cholesterol.total/Karlie sterol in HDL mass ratio 3.6 {ratio} Invalid Interpretation Code [facility] Comment on above: Female Coronary Hear t Disease Risk Factor (CHDRF): Average risk= 4.4 1/2 Average risk= 3.3 2 times Average risk= 7.1 Triglyceride mass conc 96 mg/dL Invalid Interpretation Code 25 - 120 mg/dL [facility] Cholesterol in HDL mass conc 42 mg/dL Normal 40-59 [facility] Comment on above: Performed By: #### L IPID ####Unless otherwise noted, all testing performed by [address] [id number]: [id number] Director: Julio Olivares M.D. Cholesterol in LDL mass conc 90 mg/dL Normal 10-150 [facility] Comment on above: Performed By: #### L IPID ####Unless otherwise noted, all testing performed by [address] [id number]: [id number] Director: Julio Olivares M.D. Cholesterol in VLDL mass conc 19 mg/dL Normal 5-40 [facility] Comment on above: Performed By: #### L IPID ####Unless otherwise noted, all testing performed by [address] [id number]: [id number] Director: Julio Olivares M.D. Cholesterol mass conc 150 mg/dL Normal 100-199 [facility] Comment on above: Performed By: #### L IPID ####Unless otherwise noted, all testing performed by [address] [id number]: [id number] Director: Julio Olivares M.D. Cholesterol.total/Karlie sterol in HDL mass ratio 3.6 {ratio} Normal 3.2-5.0 [facility] Comment on above: Result Comment: Balbir grullon Coronary Heart Disease Risk Factor (CHDRF):Average risk= 4.41/2 Average risk= 3.32 times Average risk= 7.1 Performed By: #### L IPID ####Unless otherwise noted, all testing performed by [address] [id number]: [id number] Director: Julio Olivares M.D. Triglyceride mass conc 96 mg/dL Normal 25-120 [facility] Comment on above: Performed By: #### L IPID ####Unless otherwise noted, all testing performed by [address] [id number]: [id number] Director: Julio Olivares M.D. Vital Signs Date Time Vital Sign Value Performing Clinician Facility 03-17-2025 14:30-0400 Body height 160 cm Mela Walker CNP Work Phone: [facility] 03-17-2025 14:30-0400 Body mass index (BMI) [Ratio] 43.61 kg/m2 Mela Walker GEOGRAPHY TEACHER Work Phone: [facility] 03-17-2025 14:30-0400 Body temperature 98.01 [degF] Mela Walker GEOGRAPHY TEACHER Work Phone: [facility] 03-17-2025 14:30-0400 Body weight 111.68 kg Mela Walker CNP Work Phone: [facility] 03-17-2025 14:30-0400 Diastolic blood pressure 79 mm[Hg] Mela Walker GEOGRAPHY TEACHER Work Phone: [facility] 03-17-2025 14:30-0400 Heart rate 112 /min Mela Walker GEOGRAPHY TEACHER Work Phone: [facility] 03-17-2025 14:30-0400 Respiratory rate 16 /min Mela Walker GEOGRAPHY TEACHER Work Phone: [facility] 03-17-2025 14:30-0400 SaO2% (BldA) [Mass fraction] 96 % Mela Walker GEOGRAPHY TEACHER Work Phone: [facility] 03-17-2025 14:30-0400 Systolic blood pressure 109 mm[Hg] Mela Walker GEOGRAPHY TEACHER Work Phone: [facility] 01-29-2025 15:09-0400 Body weight 112.03 kg Mela Walker [employer] Work Phone: [facility] 01-29-2025 15:09-0400 Diastolic blood pressure 82 mm[Hg] Mela Walker [employer] Work Phone: [facility] 01-29-2025 15:09-0400 Systolic blood pressure 136 mm[Hg] Mela Walker [employer] Work Phone: [facility] 12-08-2024 11:00-0400 Body temperature 98 [degF] Mela Walker [employer] Work Phone: [facility] 12-08-2024 11:00-0400 Diastolic blood pressure 57 mm[Hg] Mela Walker [employer] Work Phone: [facility] 12-08-2024 11:00-0400 Heart rate 89 /min Mela Walker [employer] Work Phone: [facility] 12-08-2024 11:00-0400 Respiratory rate 18 /min Mela Walker [employer] Work Phone: [facility] 12-08-2024 11:00-0400 SaO2% (BldA) [Mass fraction] 99 % Mela Walker [employer] Work Phone: [facility] 12-08-2024 11:00-0400 Systolic blood pressure 124 mm[Hg] Mela Walker [employer] Work Phone: [facility] 12-08-2024 07:11-0400 Body height 160.02 cm Mela Walker [employer] Work Phone: [facility] 12-08-2024 07:11-0400 Body mass index (BMI) [Ratio] 43.4 kg/m2 Mela Walker [employer] Work Phone: [facility] 12-08-2024 07:11-0400 Body weight 111.13 kg Mela Walker [employer] Work Phone: [facility] 10-14-2024 15:07-0400 Body mass index (BMI) [Ratio] 43.7 kg/m2 Mela Walker [employer] Work Phone: [facility] 10-14-2024 15:07-0400 Body weight 112.03 kg Mela Walker [employer] Work Phone: [facility] 10-14-2024 15:07-0400 Diastolic blood pressure 81 mm[Hg] Mela Walker [employer]C Work Phone: [facility] 10-14-2024 15:07-0400 Systolic blood pressure 137 mm[Hg] Mela Walker [employer]C Work Phone: [facility] 03-13-2024 13:55-0400 Body height 160 cm Mela Walker GEOGRAPHY TEACHER Work Phone: [facility] 03-13-2024 13:55-0400 Body mass index (BMI) [Ratio] 41.06 kg/m2 Mela Walker GEOGRAPHY TEACHER Work Phone: [facility] 03-13-2024 13:55-0400 Body temperature 98.29 [degF] Mela Walker GEOGRAPHY TEACHER Work Phone: [facility] 03-13-2024 13:55-0400 Body weight 105.14 kg Mela Walker GEOGRAPHY TEACHER Work Phone: [facility] 03-13-2024 13:55-0400 Diastolic blood pressure 81 mm[Hg] Mela Walker GEOGRAPHY TEACHER Work Phone: [facility] 03-13-2024 13:55-0400 Heart rate 86 /min Mela Walker GEOGRAPHY TEACHER Work Phone: [facility] 03-13-2024 13:55-0400 Respiratory rate 16 /min Mela Walker GEOGRAPHY TEACHER Work Phone: [facility] 03-13-2024 13:55-0400 SaO2% (BldA) [Mass fraction] 97 % Mela Walker GEOGRAPHY TEACHER Work Phone: [facility] 03-13-2024 13:55-0400 Systolic blood pressure 120 mm[Hg] Mela Walker GEOGRAPHY TEACHER Work Phone: [facility] 04-04-2023 10:32-0400 Body height 160 cm Mela Walker GEOGRAPHY TEACHER Work Phone: [facility] 04-04-2023 10:32-0400 Body mass index (BMI) [Ratio] 37.24 kg/m2 Mela Walker GEOGRAPHY TEACHER Work Phone: [facility] 04-04-2023 10:32-0400 Body temperature 98.1 [degF] Mela Walker GEOGRAPHY TEACHER Work Phone: [facility] 04-04-2023 10:32-0400 Body weight 95.35 kg Mela Walker GEOGRAPHY TEACHER Work Phone: [facility] 04-04-2023 10:32-0400 Diastolic blood pressure 83 mm[Hg] Mela Walker GEOGRAPHY TEACHER Work Phone: [facility] 04-04-2023 10:32-0400 Heart rate 106 /min Mela Walker GEOGRAPHY TEACHER Work Phone: [facility] 04-04-2023 10:32-0400 SaO2% (BldA) [Mass fraction] 93 % Mela Walker GEOGRAPHY TEACHER Work Phone: [facility] 04-04-2023 10:32-0400 Systolic blood pressure 125 mm[Hg] Mela Walker GEOGRAPHY TEACHER Work Phone: [facility] 03-22-2023 15:43-0400 Body height 160.[address] Priyanka Leonardo Work Phone: [facility] 03-22-2023 15:43-0400 Body mass index (BMI) [Ratio] 36.8 kg/m2 Dr. Priyanka Leonardo Work Phone: [facility] 03-22-2023 15:43-0400 Body weight 94.[address] Priyanka Leonardo Work Phone: [facility] 03-22-2023 15:43-0400 Diastolic blood pressure 80 mm[Hg] Dr. Priyanka Leonardo Work Phone: [facility] 03-22-2023 15:43-0400 Systolic blood pressure 122 mm[Hg] Dr. Priyanka Leonardo Work Phone: [facility] 07-19-2022 15:01-0500 Body height 160 cm Mela Walker GEOGRAPHY TEACHER Work Phone: [facility] 07-19-2022 15:01-0500 Body mass index (BMI) [Ratio] 37.75 kg/m2 Melaulysses Walker GEOGRAPHY TEACHER Work Phone: [facility] 07-19-2022 15:01-0500 Body temperature 98.29 [degF] Mela Walker GEOGRAPHY TEACHER Work Phone: [facility] 07-19-2022 15:01-0500 Body weight 96.66 kg Mela Walker GEOGRAPHY TEACHER Work Phone: [facility] 07-19-2022 15:01-0500 Diastolic blood pressure 80 mm[Hg] Mela Walker GEOGRAPHY TEACHER Work Phone: [facility] 07-19-2022 15:01-0500 Heart rate 106 /min Mela Walker GEOGRAPHY TEACHER Work Phone: [facility] 07-19-2022 15:01-0500 Respiratory rate 16 /min Mela Walker GEOGRAPHY TEACHER Work Phone: [facility] 07-19-2022 15:01-0500 SaO2% (BldA) [Mass fraction] 98 % Mela Walker GEOGRAPHY TEACHER Work Phone: [facility] 07-19-2022 15:01-0500 Systolic blood pressure 115 mm[Hg] Mela Walker GEOGRAPHY TEACHER Work Phone: [facility] 12-16-2021 00:08-0400 Body mass index (BMI) [Ratio] 37.6 kg/m2 [facility] Work Phone: 10-16-2021 00:22-0400 Body mass index (BMI) [Ratio] 37.6 kg/m2 [facility] Work Phone: 09-16-2021 00:21-0400 Body mass index (BMI) [Ratio] 37.6 kg/m2 [employer] Bethanie Redick Work Phone: [facility] Work Phone: 08-16-2021 00:20-0500 Body mass index (BMI) [Ratio] 37.6 kg/m2 [facility] Work Phone: 08-15-2021 23:20-0500 Body mass index (BMI) [Ratio] 37.6 kg/m2 [employer] Bethanie Redick Work Phone: [facility] Work Phone: 08-03-2021 15:12-0500 Body height 160 cm No Pcp Required [facility] 08-03-2021 15:12-0500 Body temperature 96.98 [degF] No Pcp Required [facility] 08-03-2021 15:12-0500 Diastolic blood pressure 67 mm[Hg] No Pcp Required [facility] 08-03-2021 15:12-0500 Heart rate 96 /min No Pcp Required [facility] 08-03-2021 15:12-0500 Respiratory rate 16 /min No Pcp Required [facility] 08-03-2021 15:12-0500 SaO2% (BldA) [Mass fraction] 96 % No Pcp Required [facility] 08-03-2021 15:12-0500 Systolic blood pressure 124 mm[Hg] No Pcp Required [facility] 07-18-2021 23:16-0500 Body mass index (BMI) [Ratio] 37.6 kg/m2 [employer] Bethanie Redick Work Phone: [facility] Work Phone: 06-26-2021 12:41-0500 Body temperature 97.3 [degF] [employer] Bethanie Redick Work Phone: [facility] Work Phone: 06-26-2021 12:41-0500 Diastolic blood pressure 80 mm[Hg] [employer] Bethanie Redick Work Phone: [facility] Work Phone: 06-26-2021 12:41-0500 Heart rate 108 /min [employer] Bethanie Redick Work Phone: [facility] Work Phone: 06-26-2021 12:41-0500 Respiratory rate 15 /min [employer] Bethanie Redick Work Phone: [facility] Work Phone: 06-26-2021 12:41-0500 SaO2% (BldA) [Mass fraction] 99 % [employer] Bethanie Redick Work Phone: [facility] Work Phone: 06-26-2021 12:41-0500 Systolic blood pressure 150 mm[Hg] [employer]C Bethanie Redick Work Phone: [facility] Work Phone: 06-17-2021 23:10-0500 Body mass index (BMI) [Ratio] 37.6 kg/m2 [employer] Bethanie Redick Work Phone: [facility] Work Phone: 05-17-2021 23:06-0500 Body mass index (BMI) [Ratio] 37.6 kg/m2 [employer] Bethanie Redick Work Phone: [facility] Work Phone: 04-15-2021 08:07-0400 Body height 160 cm Mela Walker [facility] Work Phone: [facility] 04-15-2021 08:07-0400 Body mass index (BMI) [Ratio] 38.6 kg/m2 Mela Walker GEOGRAPHY TEACHER Work Phone: [facility] 04-15-2021 08:07-0400 Body temperature 98.1 [degF] Mela Walker GEOGRAPHY TEACHER Work Phone: [facility] 04-15-2021 08:07-0400 Body weight 98.84 kg Mela Walker GEOGRAPHY TEACHER Work Phone: [facility] 04-15-2021 08:07-0400 Diastolic blood pressure 82 mm[Hg] Mela Walker GEOGRAPHY TEACHER Work Phone: [facility] 04-15-2021 08:07-0400 Heart rate 83 /min Mela Walker GEOGRAPHY TEACHER Work Phone: [facility] 04-15-2021 08:07-0400 Respiratory rate 16 /min Mela Walker GEOGRAPHY TEACHER Work Phone: [facility] 04-15-2021 08:07-0400 SaO2% (BldA) [Mass fraction] 97 % Mela Walker GEOGRAPHY TEACHER Work Phone: [facility] 04-15-2021 08:07-0400 Systolic blood pressure 117 mm[Hg] Mela Walker GEOGRAPHY TEACHER Work Phone: [facility] 12-08-2020 10:48-0400 Body height 160 cm Mela Walker GEOGRAPHY TEACHER Work Phone: [facility] 12-08-2020 10:48-0400 Body mass index (BMI) [Ratio] 38.3 kg/m2 Mela Walker GEOGRAPHY TEACHER Work Phone: [facility] 12-08-2020 10:48-0400 Body temperature 98.6 [degF] Mela Walker GEOGRAPHY TEACHER Work Phone: [facility] 12-08-2020 10:48-0400 Body weight 98.07 kg Mela Walker GEOGRAPHY TEACHER Work Phone: [facility] 12-08-2020 10:48-0400 Diastolic blood pressure 85 mm[Hg] Mela Walker GEOGRAPHY TEACHER Work Phone: [facility] 12-08-2020 10:48-0400 Heart rate 103 /min Mela Walker GEOGRAPHY TEACHER Work Phone: [facility] 12-08-2020 10:48-0400 Respiratory rate 16 /min Mela Walker GEOGRAPHY TEACHER Work Phone: [facility] 12-08-2020 10:48-0400 SaO2% (BldA) [Mass fraction] 98 % Mela Walker GEOGRAPHY TEACHER Work Phone: [facility] 12-08-2020 10:48-0400 Systolic blood pressure 128 mm[Hg] Mela Walker GEOGRAPHY TEACHER Work Phone: [facility] 11-17-2020 13:45-0400 Diastolic blood pressure 64 mm[Hg] No Pcp Required [facility] 11-17-2020 13:45-0400 Heart rate 85 /min No Pcp Required [facility] 11-17-2020 13:45-0400 Respiratory rate 16 /min No Pcp Required [facility] 11-17-2020 13:45-0400 SaO2% (BldA) [Mass fraction] 100 % No Pcp Required [facility] 11-17-2020 13:45-0400 Systolic blood pressure 124 mm[Hg] No Pcp Required [facility] 11-17-2020 09:01-0400 Body height 160 cm No Pcp Required [facility] 11-17-2020 09:01-0400 Body temperature 96.98 [degF] No Pcp Required [facility] 11-17-2020 09:01-0400 Body weight 84 kg No Pcp Required [facility] 06-01-2020 11:54-0500 BMI (Body Mass Index) 37.36 kg/m2 Barbara Cruz [facility] 06-01-2020 11:54-0500 Body Temperature 97.59 [degF] Barbara Cruz [facility] 06-01-2020 11:54-0500 Body weight 95.66 kg Barbara Cruz [facility] 06-01-2020 11:54-0500 BP Diastolic 84 mm[Hg] Barbara Cruz [facility] 06-01-2020 11:54-0500 BP Systolic 127 mm[Hg] Barbara Cruz [facility] 06-01-2020 11:54-0500 Height 160 [facility] 11:54-0500 Pulse (Heart Rate) 98 /min [facility] 06-01-2020 11:54-0500 Pulse Oximetry 98 % [facility] 06-01-2020 11:54-0500 Respiratory Rate 18 /min [facility] 01-09-2020 10:23-0400 BMI (Body Mass Index) 36.88 kg/m2 [facility] 01-09-2020 10:23-0400 Body Temperature 97.81 [degF] [...] 06-20-2019 08:21-0500 Body Temperature 97.9 [degF] [facility] 06-20-2019 08:21-0500 Body weight 92.49 kg [facility] 06-20-2019 08:21-0500 BP Diastolic 79 mm[Hg] [facility] 06-20-2019 08:21-0500 BP Systolic 131 mm[Hg] Barbara [facility] 06-20-2019 08:21-0500 Pulse (Heart Rate) 101 /min Barbara [facility] 06-20-2019 08:21-0500 Pulse Oximetry 96 % [facility] 06-20-2019 08:21-0500 Respiratory Rate 18 /min [facility] 02-21-2019 13:38-0400 BMI (Body Mass Index) 35.53 kg/m2 Barbara [facility] 02-21-2019 13:38-0400 Body Temperature 97.5 [degF] Barbara Cruz [facility] 02-21-2019 13:38-0400 Body weight 90.99 kg Barbara Cruz [facility] 02-21-2019 13:38-0400 BP Diastolic 79 mm[Hg] Barbara Cruz [facility] 02-21-2019 13:38-0400 BP Systolic 112 mm[Hg] Barbara Cruz [facility] 02-21-2019 13:38-0400 Height 160 cm Barbara [facility] 02-21-2019 13:38-0400 Pulse (Heart Rate) 84 /min [facility] 02-21-2019 13:38-0400 Pulse Oximetry 97 % Barbara [facility] 11-13-2018 14:34-0400 BMI (Body Mass Index) 33.8 kg/m2 Barbara [facility] 11-13-2018 14:34-0400 Body Temperature 98.1 [degF] Barbara [facility] 11-13-2018 14:34-0400 BP Diastolic 79 mm[Hg] Barbara [facility] 11-13-2018 14:34-0400 BP Systolic 119 mm[Hg] Barbara [facility] 11-13-2018 14:34-0400 Pulse (Heart Rate) 81 /min Barbara [facility] 11-13-2018 14:34-0400 Pulse Oximetry 98 % Barbara [facility] 11-13-2018 14:34-0400 Respiratory Rate 18 /min Barbara [facility] 11-13-2018 14:34-0400 Weight 90.72 kg Barbara [facility] 08-09-2018 08:24-0500 BMI (Body Mass Index) 34.22 kg/m2 Barbara [facility] 08-09-2018 08:24-0500 Body Temperature 98.4 [degF] Barbara [facility] 08-09-2018 08:24-0500 BP Diastolic 82 mm[Hg] Barbara [facility] 08-09-2018 08:24-0500 BP Systolic 125 mm[Hg] Barbara [facility] 08-09-2018 08:24-0500 Height 163.8 cm Barbara [facility] 08-09-2018 08:24-0500 Pulse (Heart Rate) 92 /min Barbara [facility] 08-09-2018 08:24-0500 Pulse Oximetry 94 % Barbara Castillo [facility] 08-09-2018 08:24-0500 Respiratory Rate 18 /min Barbara Castillo [facility] 08-09-2018 08:24-0500 Weight 91.85 kg Barbara Castillo [facility] Encounters Encounter Date Encounter Type Care Provider Facility Start: 04-15-2025 End: 04-15-2025 Refill Mela Walker GEOGRAPHY TEACHER Work Phone: [facility] Comment on above: Intractable migraine with aura without status migrainosus Start: 03-23-2025 End: 03-23-2025 Patient encounter procedure Kevin Brand [facility] Work Phone: Start: 03-23-2025 End: 03-23-2025 ambulatory Mela Walker [employer] Work Phone: [facility] Start: 03-17-2025 End: 03-17-2025 Periodic preventive med est patient 40-64yrs Mela Walker GEOGRAPHY TEACHER Work Phone: [facility] Phys[facility] Comment on above: Well adult exam (Yuki lizzie Dx); Screening mammogram for breast cancer; Attention deficit hyperactivity disorder (ADHD), predominantly inattentive type Start: 03-17-2025 End: 03-17-2025 ambulatory MELA WALKER [facility] Start: 03-17-2025 End: 03-17-2025 Patient encounter status Mela Walker GEOGRAPHY TEACHER Work Phone: [facility] Start: 03-09-2025 End: 03-10-2025 Refill Mela Walker GEOGRAPHY TEACHER Work Phone: [facility] Comment on above: Depression, unspecif ied depression type Start: 02-05-2025 End: 02-05-2025 Refill Mela Walker GEOGRAPHY TEACHER Work Phone: [facility] Comment on above: Depression, unspecif ied depression type Start: 02-02-2025 End: 02-03-2025 Refill Mela Walker GEOGRAPHY TEACHER Work Phone: [facility] Start: 01-29-2025 End: 01-29-[address] Priyanka Leonardo [place] -[facility] Work Phone: Start: 01-29-2025 End: 01-29-2025 ambulatory Melaulysses Walker [employer]C Work Phone: -[facility] Start: 01-23-2025 Registered [employer] [facility] RIS K ASSESSMENT -Employee Health Start: 01-23-2025 End: 01-23-2025 ambulatory Mela Walker [employer] Work Phone: -Laboratory Start: 01-23-2025 End: 01-23-2025 Patient encounter procedure Kirk Danielson PA -Laboratory Work Phone: Start: 01-23-2025 End: 01-23-2025 ambulatory Mela Walker Facility:[facility] Start: 01-12-2025 End: 01-12-2025 ambulatory Mela Walker [employer] Work Phone: -Laboratory Start: 01-12-2025 End: 01-12-2025 Patient encounter procedure Mela Walker [employer]C -Laboratory Work Phone: Start: 01-12-2025 End: 01-12-2025 ambulatory Mela Walker Facility:[facility] Start: 01-08-2025 End: 01-08-2025 Refill Mlea Walker GEOGRAPHY TEACHER Work Phone: [facility] Comment on above: Attention deficit hy peractivity disorder (ADHD), predominantly inattentive type Start: 12-10-2024 ambulatory MELAUlysses WALKER [facility] Start: 12-08-2024 End: 12-08-2024 Emergency department patient visit Mela Walker [employer] Work Phone: -Emergency Department Work Phone: Start: 10-14-2024 End: 10-14-2024 Patient encounter procedure Uyen Marcano [employer]ER[employer]C -[facility] Work Phone: Start: 10-14-2024 End: 10-14-2024 ambulatory Mela Walker Facility:[facility] [place] Start: 10-13-2024 End: 10-13-2024 Refill Mela Lima Walker GEOGRAPHY TEACHER Work Phone: [facility] Comment on above: Attention deficit hy peractivity disorder (ADHD), predominantly inattentive type Start: 09-10-2024 End: 09-10-2024 Telemedicine consultation with patient Mela Walker GEOGRAPHY TEACHER Work Phone: [facility] Comment on above: Attention deficit hy peractivity disorder (ADHD), predominantly inattentive type (Primary Dx); Depression, unspecified depression type Start: 09-10-2024 End: 09-10-2024 ambulatory MELA LEA WALKER [facility] Start: 08-08-2024 End: 08-08-2024 Refill Mela Lima Wakler GEOGRAPHY TEACHER Work Phone: [facility] Comment on above: Vitamin D deficiency ; Depression, unspecified depression type; Attention deficit hyperactivity disorder (ADHD), predominantly inattentive type Start: 07-30-2024 End: 07-30-2024 ambulatory Mela Walker Facility:[facility] Start: 07-24-2024 End: 07-24-2024 Refill Mela Lima Walker GEOGRAPHY TEACHER Work Phone: [facility] Comment on above: Attention deficit hy peractivity disorder (ADHD), predominantly inattentive type Start: 07-22-2024 End: 07-22-2024 ambulatory Mela Walker Facility:[facility] Start: 06-20-2024 End: 06-20-2024 Refill Mela Lea Walker GEOGRAPHY TEACHER Work Phone: [facility] Comment on above: Intractable migraine with aura without status migrainosus; Attention deficit hyperactivity disorder (ADHD), predominantly inattentive type Start: 05-26-2024 End: 05-26-2024 ambulatory Mela Walker Facility:[facility] [place] Start: 03-25-2024 ambulatory MELA LIMA WALKER [facility] Ambulatory Start: 03-13-2024 End: 03-13-2024 Patient encounter status Mela Lima Walker GEOGRAPHY TEACHER Work Phone: [facility] Start: 03-13-2024 End: 03-13-2024 Periodic preventive med est patient 40-64yrs Mela Walker GEOGRAPHY TEACHER Work Phone: [facility] Comment on above: Well adult exam (Yuki lizzie Dx); Attention deficit hyperactivity disorder (ADHD), predominantly inattentive type; Therapeutic drug monitoring; Screening mammogram for breast cancer; Morbid obesity with BMI of 40.0-44.9, adult (HCC); Dyslipidemia, goal LDL below 100 Start: 02-08-2024 End: 02-11-2024 Documentation procedure Mela Walker GEOGRAPHY TEACHER Work Phone: [facility] Start: 01-07-2024 End: 01-07-2024 Refill Mela Walker GEOGRAPHY TEACHER Work Phone: [facility] Comment on above: Attention deficit hy peractivity disorder (ADHD), predominantly inattentive type Start: 10-12-2023 End: 10-12-2023 Office outpatient visit 25 minutes Mela Walker GEOGRAPHY TEACHER Work Phone: [facility] Comment on above: Attention deficit hy peractivity disorder (ADHD), predominantly inattentive type; Depression, unspecified depression type; Intractable migraine with aura without status migrainosus Start: 10-03-2023 Refill Mela lyons GEOGRAPHY TEACHER Work Phone: [facility] Comment on above: Attention deficit hy peractivity disorder (ADHD), predominantly inattentive type Start: 07-05-2023 End: 07-05-2023 Office outpatient visit 25 minutes Mela Walker GEOGRAPHY TEACHER Work Phone: [facility] Comment on above: Attention deficit hy peractivity disorder (ADHD), predominantly inattentive type; Vitamin D deficiency; Iron deficiency; Intractable migraine with aura without status migrainosus; Depression, unspecified depression type Start: 06-28-2023 End: 06-28-[address] Priyanka Loenardo Work Phone: [facility] Work Phone: Start: 06-28-2023 End: 06-28-[address] Priyanka Leonardo Work Phone: [facility] Work Phone: Start: 04-18-2023 End: 04-18-[address] Priyanka Leonardo Work Phone: [facility] Work Phone: Start: 04-04-2023 End: 04-04-2023 Patient encounter status Mela Walker GEOGRAPHY TEACHER Work Phone: [facility] Start: 04-04-2023 End: 04-04-2023 Periodic preventive med est patient 40-64yrs Mela Walker GEOGRAPHY TEACHER Work Phone: [facility] Comment on above: Well adult exam (Yuki lizzie Dx); Iron deficiency; Attention deficit hyperactivity disorder (ADHD), predominantly inattentive type Start: 03-22-2023 End: 03-22-[address] Priyanka Leonardo Work Phone: [facility] Work Phone: Start: 03-21-2023 End: 04-17-[address] Priyanka Leonardo Work Phone: [facility] Work Phone: Start: 03-21-2023 End: 04-17-[address] [facility] Start: 03-05-2023 End: 03-17-2023 ambulatory [facility] Work Phone: Start: 03-05-2023 End: 03-17-2023 [facility]charged [facility] Start: 03-05-2023 [facility] Start: 01-30-2023 End: 01-30-2023 ambulatory [facility] Work Phone: Start: 01-30-2023 End: 01-30-2023 Patient encounter procedure [facility] Work Phone: Start: 01-23-2023 End: 01-23-2023 Patient encounter procedure [facility] Work Phone: Start: 10-18-2022 End: 10-18-2022 Office outpatient visit 25 minutes Mela Walker GEOGRAPHY TEACHER Work Phone: [facility] Comment on above: Attention deficit hy peractivity disorder (ADHD), predominantly inattentive type; Mood disorder (HCC) Start: 08-08-2022 End: 08-08-2022 ambulatory [facility] Work Phone: Start: 08-08-2022 End: 08-08-2022 Patient encounter procedure [facility] Start: 07-19-2022 End: 07-19-2022 Office outpatient visit 25 minutes Mela Walker GEOGRAPHY TEACHER Work Phone: [facility] Comment on above: Mood disorder (HCC) (Primary Dx); Intractable migraine with aura without status migrainosus; Depression, unspecified depression type; Attention deficit hyperactivity disorder (ADHD), predominantly inattentive type; Vitamin D deficiency; Screening for thyroid disorder; Encounter for lipid screening for cardiovascular disease; Iron deficiency; Well adult exam Start: 07-19-2022 End: 07-19-2022 Patient encounter status Mela Walker GEOGRAPHY TEACHER Work Phone: [facility] Start: 06-30-2022 End: 07-18-2022 ambulatory [facility] Work Phone: Start: 06-30-2022 End: 07-18-2022 Discharged Recurring [facility] Start: 06-28-2022 Refill Mela lyons GEOGRAPHY TEACHER Work Phone: [facility] Comment on above: Attention deficit hy peractivity disorder (ADHD), predominantly inattentive type Start: 04-18-2022 Patient encounter status Mela Walker CNP Work Phone: [facility] Start: 02-10-2022 End: 02-10-2022 Office outpatient visit 25 minutes Mela Walker GEOGRAPHY TEACHER Work Phone: [facility] Comment on above: Depression, unspecif ied depression type (Primary Dx); Attention deficit hyperactivity disorder (ADHD), predominantly inattentive type; Intractable migraine with aura without status migrainosus; Screening mammogram for breast cancer Start: 01-11-2022 End: 01-15-2022 Discharged Recurring [facility] Start: 12-14-2021 End: 12-15-[address] [facility] Start: 09-16-2021 End: 10-15-2021 Discharged Recurring BRUSH WASHER-C Bethanie Redick Work Phone: [facility] Start: 09-08-2021 End: 09-15-2021 Discharged Recurring BRUSH WASHER-C Bethanie Redick Work Phone: [facility] Start: 08-15-2021 End: 08-15-2021 Discharged Recurring BRUSH WASHER-C Bethanie Redick Work Phone: [facility] Start: 08-03-2021 End: 08-03-2021 Emergency department patient visit Deonte Velasquezdrine [facility] [place] [id number] Start: 07-14-2021 End: 07-18-2021 Discharged Recurring BRUSH WASHER-C Bethanie Redick Work Phone: [facility] Start: 07-05-2021 Orders Only Mela lyons GEOGRAPHY TEACHER Work Phone: [facility] Comment on above: Vitamin D deficiency (Primary Dx); Iron deficiency Start: 07-01-2021 Patient encounter procedure BRUSH WASHER-C Bethanie Redick Work Phone: [facility] Start: 06-26-2021 End: 06-26-2021 Patient encounter procedure BRUSH WASHER-C Bethanie Redick Work Phone: [facility] Start: 06-16-2021 End: 06-17-2021 Discharged Recurring BRUSH WASHER-C Bethanie Redick Work Phone: [facility] Start: 06-06-2021 End: 06-06-2021 Office outpatient visit 15 minutes Mela Walker GEOGRAPHY TEACHER Work Phone: [facility] Comment on above: Attention deficit hy peractivity disorder (ADHD), predominantly inattentive type Start: 04-15-2021 End: 09-10-2024 Patient encounter status Mela Amato Denise GEOGRAPHY TEACHER Work Phone: [facility] Start: 04-15-2021 End: 04-15-2021 Periodic preventive med est patient 18-39 yrs Mela Walker GEOGRAPHY TEACHER Work Phone: [facility] Comment on above: Well adult exam (Yuki lizzie Dx) Start: 03-10-2021 End: 03-10-2021 Office outpatient visit 15 minutes Mela Walker GEOGRAPHY TEACHER Work Phone: [facility] Comment on above: Attention deficit hy peractivity disorder (ADHD), predominantly inattentive type Start: 12-08-2020 End: 12-08-2020 Office outpatient visit 25 minutes Mela Walker GEOGRAPHY TEACHER Work Phone: [facility] Comment on above: Attention deficit hy peractivity disorder (ADHD), unspecified ADHD type (Primary Dx); ANISH (generalized anxiety disorder) Start: 11-17-2020 End: 11-17-2020 Emergency department patient visit Jenny Giang [facility] 13 Start: 07-16-2020 End: 07-16-2020 Refill Barbara Cruz Work Phone: [facility] Comment on above: Depression, unspecif ied depression type Start: 06-01-2020 End: 06-01-2020 Office outpatient visit 15 minutes Barbara Cruz Work Phone: [facility] Comment on above: Depression, unspecif ied depression type (Primary Dx); Attention deficit hyperactivity disorder (ADHD), unspecified ADHD type; Mood disorder (HCC) Start: 04-28-2020 End: 04-28-2020 Documentation procedure Barbara Cruz Work Phone: [facility] Start: 01-09-2020 End: 01-09-2020 Office outpatient visit 15 minutes Barbara Cruz Work Phone: [facility] Comment on above: Well adult exam (Yuki lizzie Dx); Attention deficit hyperactivity disorder (ADHD), unspecified ADHD type; Screening for lipid disorders Start: 06-20-2019 End: 06-20-2019 Office outpatient visit 15 minutes Barbara Cruz Work Phone: [facility] Comment on above: Attention deficit hy peractivity disorder (ADHD), unspecified ADHD type Start: 02-21-2019 End: 02-21-2019 Office outpatient visit 15 minutes Barbara Cruz Work Phone: [facility] Comment on above: Attention deficit hy peractivity disorder (ADHD), unspecified ADHD type Start: 11-14-2018 End: 11-18-2018 Patient encounter procedure BARBARACT CRUZ [facility] Start: 11-13-2018 End: 11-13-2018 Office outpatient visit 15 minutes Barbara Cruz Work Phone: [facility] Comment on above: Attention deficit hy peractivity disorder (ADHD), unspecified ADHD type (Primary Dx); Encounter for well adult exam without abnormal findings; Screening for lipid disorders; Screening for thyroid disorder; Depression, unspecified depression type Start: 08-09-2018 End: 08-09-2018 Office outpatient new 45 minutes Barbara Castillo Work Phone: [facility] Comment on above: Encounter for well a dult exam without abnormal findings (Primary Dx); Attention deficit hyperactivity disorder (ADHD), unspecified ADHD type Start: 02-13-2018 Patient encounter Abisai chester:[place] Start: 02-13-2018 End: 02-13-2018 Patient encounter Abisai Wyman Work Phone: [facility] Procedures Date Procedure Procedure Detail Performing Clinician Start: 01-23-2025 In-vitro immunologic test Mela Walker N P-C Work Phone: Comment on above: QuantiFERON-TB Gold Plus is a qualitativ e indirect test forM tuberculosis infection (including disease) and isintended for use in conjunction with risk assessment,radiography, and other medical and diagnostic evaluations.The QuantiFERON-TB Gold Plus result is determined bysubtracting the Nil value from either TB antigen (Ag)value. The Mitogen tube serves as a control for the test. No response to M tub erculosis antigens detected.Infection with M tuberculosis is unlikely, but high riskindividuals should be considered for additional testing(ATS/IDSA/CDC Clinical Practice Guidelines, 2017). Thereference range is an Antigen minus Nil result of <0.35IU/mL.The specimen received for QuantiFERON testing was incubatedby the ordering institution. Specific procedures outlinedin our Directory of Services and in the package insert forthe QuantiFERON Gold (In Tube) test must be followed toenable for proper stimulation of cells for the productionof interferon gamma. Chemiluminescence immunoassaymethodologyPerformed at: [employer] [place] [id number] Director: Graham Kinney PhD, Phone: [phone] Start: 01-23-2025 Serum inorganic phosphate measurement Be michelle Walker BRUSH WASHER-C Work Phone: Start: 01-12-2025 DENISE measurement Mela Walker BRUSH WASHER-C Work Phone: Comment on above: Performed at: [facility] [place], [place] [id number] Director: Graham Kinney PhD, Phone: [phone] Start: 12-08-2024 Plain chest X-ray Mela Walker BRUSH WASHER-C Work Phone: Start: 12-08-2024 Estimated creatinine clearance Mela conner BRUSH WASHER-C Work Phone: Start: 03-21-2024 Mammography Mela Walker GEOGRAPHY TEACHER Work Phone: Start: 03-13-2024 Drug tst prsmv instrmnt chem analyzers pr date Mela Walker GEOGRAPHY TEACHER Work Phone: Start: 03-21-[address] Priyanka Leonardo Work Phone: Start: 03-05-2023 Viral antigen assay Start: 01-30-2023 Ultrasonography of breast Start: 01-23-2023 End: 01-23-2023 Screening mammography Start: 09-15-2021 End: 09-15-2021 Viral antigen assay BRUSH WASHER-C Bethaniemoises Hurleyick Work Phone: Start: 08-15-2021 SARS-CoV-2 Antigen (Rapid) BRUSH WASHER-C Bethanie Re nitza Work Phone: Start: 07-14-2021 SARS-CoV-2 Antigen (Rapid) BRUSH WASHER-C Bethanie Re nitza Work Phone: Start: 06-14-2021 SARS-CoV-2 Antigen (Rapid) BRUSH WASHER-C Bethanie Re nitza Work Phone: Start: 02-13-2018 End: 02-13-2018 Lipid panel Abisai Wyman Work Phone: Viral antigen assay Viral antigen assay Plan of Treatment Date Care Activity Detail Author Start: 2056 RSV Vaccines (1 - 1- dose 75+ series) RSV Vaccines (1 - 1-dose 75+ series) [facility] Start: 08-19-2031 Administration of he rpes zoster vaccine Zoster Vaccines (1 of 2) [facility] Start: 03-21-2026 COVID-19 Vaccine ( season) COVID-19 Vaccine ( season) [facility] Comment on above: Postponed from 02/16 (Treatment Not Available) Start: 03-17-2026 History and physical examination, annual for health maintenance Wellness Visit [facility] Start: 03-17-2026 Tetanus vaccination Tetanus: Every 1 0yrs [facility] Comment on above: Postponed from 06/19 (Patient Refused) Start: 01-14-2026 Depression Remission Assessment (PHQ9) Depression Remission Assessment (PHQ9) [facility] Start: 12-15-2025 Influenza vaccination Influenza Vacc ine (#1) [facility] Comment on above: Postponed from 02/16 (Patient Refused) Start: 06-18-2025 Vaccination for diphtheria, pertussis, and tetanus Tetanus/Diphtheria/Pertu ssis (8 - Td or Tdap) [facility] Start: 03-21-2025 Screening for malign ant neoplasm of breast Mammogram [facility] Start: 03-17-2025 End: 03-17-2025 Patient encounter procedure 03/17/2025 2:20 PM EDT Office Visit [facility] Physician [facility] [address] [place] [phone] Mela Walker, GEOGRAPHY TEACHER [address] [place] [address] [facility] Physician [facility] Start: 03-13-2025 Depression screening using PHQ-9 (Patient Health Questionnaire 9) score Depression Screening/Follow-Up (PHQ-2/9) [facility] Start: 03-13-2025 History and physical examination, annual for health maintenance Wellness Visit [facility] Start: 02-16-2025 COVID-19 Vaccine ( season) COVID-19 Vaccine ( season) [facility] Start: 02-16-2025 Influenza vaccination [facility] Start: 12-08-2024 [facility] Start: 12-08-2024 [facility] Start: 09-10-2024 End: 09-10-2024 Telemedicine consultation with patient 09/10/2024 9:40 AM EDT Telemedicine [facility] [address] [place] [phone] Mela Walker, GEOGRAPHY TEACHER [address] [place] [address] [facility] Start: 04-07-2024 COVID-19 Vaccine ( season) COVID-19 Vaccine ( season) [facility] Comment on above: Postponed from 02/16 (Treatment Not Available) Start: 04-04-2024 History and physical examination, annual for health maintenance Wellness Visit [facility] Start: 04-04-2024 Pneumococcal Vaccine : Ped or At-Risk (1 - PCV) Pneumococcal Vaccine: Ped or At-Risk (1 - PCV) [facility] Comment on above: Postponed from 08/18 (Patient Refused) Start: 04-04-2024 Pneumococcal Vaccine : Ped or At-Risk (1 of 2 - PCV) Pneumococcal Vaccine: Ped or At-Risk (1 of 2 - PCV) [facility] Comment on above: Postponed from 08/18 (Patient Refused) Start: 04-04-2024 Tetanus vaccination Tetanus: Every 1 0yrs [facility] Comment on above: Postponed from 06/19 (Patient Refused) Start: 03-06-2024 End: 03-06-2024 Patient encounter procedure 03/06/2024 3:20 PM EDT Office Visit [facility] [address] [place] [address] Meal Walker, GEOGRAPHY TEACHER [address] [place], [place] [phone] [facility] Start: 02-17-2024 COVID-19 Vaccine ( season) COVID-19 Vaccine ( season) [facility] Start: 02-17-2024 COVID-19 Vaccine ( season) COVID-19 Vaccine ( season) [facility] Start: 02-17-2024 Influenza vaccination Influenza Vacc ine (#1) [facility] Start: 01-24-2024 Screening for malign ant neoplasm of breast Mammogram [facility] Start: 10-12-2023 End: 10-12-2023 Telemedicine consultation with patient 10/12/2023 1:40 PM EDT Telemedicine [facility] [address] [place] [phone] Mela Walker, GEOGRAPHY TEACHER [address] [place], [place] [phone] [facility] Start: 04-05-2023 History and physical examination, annual for health maintenance Wellness Visit [facility] Start: 02-10-2023 Tetanus vaccination Tetanus: Every 1 0yrs [facility] Comment on above: Postponed from 06/19 (Patient Refused) Start: 10-18-2022 End: 10-18-2022 Telemedicine consultation with patient 10/18/2022 Telemedicine Primary Care Mela Walker, MARYA [address] [place] [address] [facility] Start: 07-19-2022 End: 07-19-2022 Patient encounter procedure 07/19/2022 Office Visit Primary Care Mela Walker CNP [address] [place] [phone] [facility] Start: 04-15-2022 History and physical examination, annual for health maintenance Wellness Visit [facility] Start: 04-15-2022 Pneumococcal Vaccine : Ped or At-Risk (1 - PCV) Pneumococcal Vaccine: Ped or At-Risk (1 - PCV) [facility] Comment on above: Postponed from 08/18 (Patient Refused) Start: 04-15-2022 Pneumococcal Vaccine : Ped or At-Risk (1 of 2 - PPSV23) Pneumococcal Vaccine: Ped or At-Risk (1 of 2 - PPSV23) [facility] Comment on above: Postponed from 08/18 (Patient Refused) Start: 02-16-2022 Influenza vaccination Sequenti al Influenza Vaccine (#1) [facility] Start: 12-08-2021 Depression screening using PHQ-9 (Patient Health Questionnaire 9) score Depression Screening/Follow-Up (PHQ-2/9) [facility] Start: 10-08-2021 Depression Remission Assessment (PHQ9) Depression Remission Assessment (PHQ9) [facility] Start: 2021 Screening for malign ant neoplasm of breast Mammogram [facility] Start: 06-19-2021 [facility] Start: 06-06-2021 End: 06-06-2021 Telemedicine consultation with patient 06/06/2021 Telemedicine Primary Care Mela Walker CNP [address] [place] [id number] [facility] Start: 05-27-2021 COVID-19 Vaccine (4 - Booster for Pfizer series) COVID-19 Vaccine (4 - Booster for Pfizer series) [facility] Start: 03-10-2021 End: 03-10-2021 Telemedicine consultation with patient 03/10/2021 Telemedicine Primary Care Mela Walker, GEOGRAPHY TEACHER [address] [place] [address] [phone] [facility] Start: 02-16-2021 Influenza vaccination [facility] Start: 11-17-2020 End: 11-18-2021 Sodium Chloride 0.9% IV Bolus . ; DOSE = 1,000 mL OnceInfuse over 1 hour(s) Start: 17-Nov-2020 End: 17-Nov-2021 Ordered: 17-Nov-2020 Jenny Giang [facility] Start: 11-17-2020 End: 11-18-2021 Sodium Chloride 0.9% Infusion . ; IV Bag Volume = 1,000 mL Run at: 125 mL/hr IntraVenous Start: 17-Nov-2020 End: 17-Nov-2021 Ordered: 17-Nov-2020 Jenny Giang [facility] Start: 11-08-2020 Depression Remission Assessment (PHQ9) Depression Remission Assessment (PHQ9) [facility] Start: 08-20-2020 End: 08-20-2020 Office Visit 08/20/2020 Office Visit Primary Care Barbara Cruz, GEOGRAPHY TEACHER [address] [place] [address] [phone] [facility] Start: 04-09-2020 End: 04-09-2020 Office Visit 04/09/2020 Office Visit Primary Care Barbara Cruz, GEOGRAPHY TEACHER [address] [place] [address] [phone] [facility] Start: 02-17-2020 Influenza vaccinatio n given Sequential Influenza Vaccine (#1) [facility] Start: 09-19-2019 End: 09-19-2019 Office Visit 09/19/2019 Office Visit Primary Care Barbara Cruz GEOGRAPHY TEACHER [address] [place] [address] [phone] [facility] Start: 05-26-2019 End: 05-26-2019 Office Visit 05/26/2019 Office Visit Primary Care Barbara Cruz, GEOGRAPHY TEACHER [address] [place] [address] [phone] [facility] Start: 02-16-2019 Influenza vaccinatio n given SEQUENTIAL INFLUENZA VACCINE (#1) [facility] Start: 02-12-2019 End: 02-12-2019 Office Visit 02/12/2019 Office Visit Primary Care Barbara Cruz, GEOGRAPHY TEACHER [address] [place] [address] [phone] [facility] Start: 11-08-2018 End: 11-08-2018 Office Visit 11/08/2018 Office Visit Primary Care Barbara Castillo, GEOGRAPHY TEACHER [address] [place] [address] [phone] [facility] Start: 08-19-2011 Screening for malign ant neoplasm of cervix HPV/Cotest [facility] Start: 2008 Vaccination for otilia n papillomavirus HPV Vaccines (1 - 3-dose SCDM series) [facility] Start: 2000 Hepatitis B vaccination Hepati tis B Vaccines (1 of 3 - 19+ 3-dose series) [facility] Start: 08-19-1999 Hepatitis C antibody , confirmatory test Hepatitis C Screening [facility] Start: 08-19-1999 Hepatitis C screening Hepatitis C Sc reening [facility] Start: 1996 HIV screening HIV Screening [facility] Start: 1994 Varicella vaccination Varicell a Vaccines (1 of 2 - 13+ 2-dose series) [facility] Start: 08-19-1987 Pneumococcal Vaccine : Ped or At-Risk (1 - PCV) Pneumococcal Vaccine: Ped or At-Risk (1 - PCV) [facility] Start: 08-19-1987 Pneumococcal Vaccine : Ped or At-Risk (1 of 2 - PPSV23) Pneumococcal Vaccine: Ped or At-Risk (1 of 2 - PPSV23) [facility] Start: 1984 History and physical examination, annual for health maintenance Wellness Visit [facility] Start: 1981 Depression screening using PHQ-9 (Patient Health Questionnaire 9) score DEPRESSION SCREENING (PHQ9) [facility] Chiropractic manipulation [facility] End: 11-14-2019 Complete blood count with white cell differential, manual CBC and Differential Lab Routine Encounter for well adult exam without abnormal findings 1 Occurrences starting 11/13/2018 until 11/14/2019 [facility] Comment on above: 1 Occurrences starti ng 11/13/2018 until 11/14/2019 End: 01-08-2021 Complete blood count with white cell differential, manual CBC and Differential Lab Routine Well adult exam 1 Occurrences starting 01/09/2020 until 01/08/2021 [facility] Comment on above: 1 Occurrences starti ng 01/09/2020 until 01/08/2021 End: 07-19-2023 Complete blood count with white cell differential, manual CBC and Differential Lab Routine Well adult exam 1 Occurrences starting 07/19/2022 until 07/19/2023 [facility] Comment on above: 1 Occurrences starti ng 07/19/2022 until 07/19/2023 End: 11-14-2019 Comprehensive metabolic 2000 panel Comprehensive Metabolic Panel Lab Routine Encounter for well adult exam without abnormal findings 1 Occurrences starting 11/13/2018 until 11/14/2019 [facility] Comment on above: 1 Occurrences starti ng 11/13/2018 until 11/14/2019 End: 01-08-2021 Comprehensive metabolic 2000 panel Comprehensive Metabolic Panel Lab Routine Well adult exam 1 Occurrences starting 01/09/2020 until 01/08/2021 [facility] Comment on above: 1 Occurrences starti ng 01/09/2020 until 01/08/2021 End: 07-19-2023 Comprehensive metabolic 2000 panel - Serum or Plasma Comprehensive Metabolic Panel Lab Routine Well adult exam 1 Occurrences starting 07/19/2022 until 07/19/2023 [facility] Work Phone: Comment on above: 1 Occurrences starti ng 07/19/2022 until 07/19/2023 End: 07-19-2023 Iron measurement Iron Study with Ferritin Lab Routine Iron deficiency Well adult exam 1 Occurrences starting 07/19/2022 until 07/19/2023 [facility] Comment on above: 1 Occurrences starti ng 07/19/2022 until 07/19/2023 End: 11-14-2019 Lipid 1996 panel Lipid Panel Lab Routine Screening for lipid disorders 1 Occurrences starting 11/13/2018 until 11/14/2019 [facility] Comment on above: 1 Occurrences starti ng 11/13/2018 until 11/14/2019 End: 01-08-2021 Lipid 1996 panel Lipid Panel Lab Routine Screening for lipid disorders 1 Occurrences starting 01/09/2020 until 01/08/2021 [facility] Comment on above: 1 Occurrences starti ng 01/09/2020 until 01/08/2021 End: 07-19-2023 Lipid 1996 panel - Serum or Plasma Lipid Panel Lab Routine Encounter for lipid screening for cardiovascular disease Well adult exam 1 Occurrences starting 07/19/2022 until 07/19/2023 [facility] Comment on above: 1 Occurrences starti ng 07/19/2022 until 07/19/2023 End: 04-12-2023 MG Breast - bilateral Screening Mammography Screening [facility] Routine Screening mammogram for breast cancer 1 Occurrences starting 02/10/2022 until 04/12/2023 [facility] Work Phone: Comment on above: 1 Occurrences starti ng 02/10/2022 until 04/12/2023 End: 05-13-2025 MG Breast - bilateral Screening Mammography Screening [facility] Routine Screening mammogram for breast cancer 1 Occurrences starting 03/13/2024 until 05/13/2025 [facility] Work Phone: Comment on above: 1 Occurrences starti ng 03/13/2024 until 05/13/2025 End: 05-17-2026 MG Breast - bilateral Screening Mammography Screening [facility] Routine Screening mammogram for breast cancer 1 Occurrences starting 03/17/2025 until 05/17/2026 [facility] Work Phone: Comment on above: 1 Occurrences starti ng 03/17/2025 until 05/17/2026 Patient Education ED Near-Fainti ng, Uncertain Cause [facility] Work Phone: Patient referral [facility] Work Phone: End: 07-19-2023 Thyrotropin [Units/volume] in Serum or Plasma TSH Lab Routine Screening for thyroid disorder Well adult exam 1 Occurrences starting 07/19/2022 until 07/19/2023 [facility] Comment on above: 1 Occurrences starti ng 07/19/2022 until 07/19/2023 End: 11-14-2019 Thyrotropin Qn TSH with Reflex Free T4 Lab Routine Screening for thyroid disorder 1 Occurrences starting 11/13/2018 until 11/14/2019 [facility] Comment on above: 1 Occurrences starti ng 11/13/2018 until 11/14/2019 End: 07-19-2023 Thyroxine (T4) free [Mass/volume] in Serum or Plasma T4, Free Lab Routine Screening for thyroid disorder Well adult exam 1 Occurrences starting 07/19/2022 until 07/19/2023 [facility] Comment on above: 1 Occurrences starti ng 07/19/2022 until 07/19/2023 End: 07-19-2023 Vitamin D, 25-hydroxy measurement Vitamin D, Total, 25-OH Lab Routine Vitamin D deficiency Well adult exam 1 Occurrences starting 07/19/2022 until 07/19/2023 [facility] Comment on above: 1 Occurrences starti ng 07/19/2022 until 07/19/2023 Immunizations Immunization Date Immunization Notes Care Provider [facility] 03-19-2025 influenza, seasonal, injectable, preservative free Mela Walker BRUSH WASHER[employer]C Work Phone: [facility] 04-03-2024 influenza, seasonal, injectable, preservative free Mela Walker BRUSH WASHER[employer]C Work Phone: [facility] 04-03-2024 influenza virus vaccine, unspecified formulation Mela Walker GEOGRAPHY TEACHER Work Phone: [facility] 03-26-2023 influenza, injectabl e, quadrivalent, preservative free Dr. Priyanka Leonardo Work Phone: [facility] 03-26-2023 influenza virus vaccine, unspecified formulation Mela Walker GEOGRAPHY TEACHER Work Phone: [facility] 05-08-2022 influenza virus vaccine, unspecified formulation Mela Walker GEOGRAPHY TEACHER Work Phone: [facility] 04-22-2022 influenza, injectabl e, quadrivalent, preservative free [facility] 04-22-2022 influenza, seasonal, injectable [facility] 05-08-2021 influenza, injectabl e, quadrivalent, preservative free [facility] 05-08-2021 influenza, seasonal, injectable [employer] Bethanie Redick Work Phone: [facility] Work Phone: 05-08-2021 influenza, seasonal, injectable, preservative free Mela Walker GEOGRAPHY TEACHER Work Phone: [facility] 04-01-2021 Covid (Pfizer) BR[employer] WASHER[employer] Bethanie Re nitza Work Phone: [facility] 07-13-2020 Covid (Pfizer) [facility] 06-22-2020 Covid (Pfizer) [facility] 03-15-2020 influenza, injectabl e, quadrivalent, preservative free [facility] 03-15-2020 influenza, seasonal, injectable BR[employer] W[employer] Bethanie Redick Work Phone: [facility] Work Phone: 03-15-2020 influenza, seasonal, injectable, preservative free Mela Walker GEOGRAPHY TEACHER Work Phone: [facility] 03-27-2019 influenza, injectabl e, quadrivalent, preservative free [facility] 03-27-2019 influenza, seasonal, injectable BR[employer] W[employer] Bethanie Redick Work Phone: [facility] Work Phone: 03-27-2019 influenza, seasonal, injectable, preservative free Mela Walker GEOGRAPHY TEACHER Work Phone: [facility] 06-18-2015 diphtheria, tetanus toxoids and acellular pertussis vaccine Barbara Castillo [facility] 09-13-2011 hepatitis B vaccine, pediatric or pediatric/adolescent dosage [facility] 03-15-2011 hepatitis B vaccine, pediatric or pediatric/adolescent dosage [facility] 02-07-2011 hepatitis B vaccine, pediatric or pediatric/adolescent dosage [facility] 02-01-2011 tetanus toxoid, redu yarely diphtheria toxoid, and acellular pertussis vaccine, adsorbed [facility] 07-13-1993 measles, mumps and rubella virus vaccine [facility] 03-10-1987 diphtheria, tetanus toxoids and pertussis vaccine [facility] 03-10-1987 trivalent poliovirus vaccine, live, oral Barbara [facility] 09-13-1983 diphtheria, tetanus toxoids and pertussis vaccine [facility] 09-13-1983 measles, mumps and rubella virus vaccine [facility] 09-13-1983 trivalent poliovirus vaccine, live, oral Barbara [facility] 04-13-1982 diphtheria, tetanus toxoids and pertussis vaccine [facility] 1981 diphtheria, tetanus toxoids and pertussis vaccine [facility] 1981 trivalent poliovirus vaccine, live, oral Barbara [facility] 1981 diphtheria, tetanus toxoids and pertussis vaccine [facility] 1981 trivalent poliovirus vaccine, live, oral [facility] Payers Date Payer Category Payer Self-pay [id number] 2022 Managed Care (privat e) or private health insurance (indemnity), not otherwise specified [employer] [id number] 2022 Private Health Insurance [id number] 2019 Unknown [id number]. [id number] 2019 Unknown 2019 Unknown [id number] 2016 Unknown [id number]. [id number] 2016 Unknown [id number] 1981 Unknown [id number] 2.16.840.1.327189.3.579.2. 903 1981 Unknown [id number] 2.16.840.1.707598.3.579.2. 903 1981 Unknown [id number] 2.16840.1.746779.3.579.2. 903 1981 Unknown [id number] 2.840.1.460471.3.579.2. 903 1981 Unknown [id number] 2.840.1.306420.3.579.2. 903 1981 Unknown [id number] 2.840.1.968951.3.579.2. 903 1981 Unknown [id number] 2.16840.1.739932.3.579.2. 903 Unknown [id number] Unknown [id number] Unknown [id number] 2.16.840.1.170351.3.579.2. 462 Unknown [id number] 2.16.840.1.218876.3.579.2. 462 Unknown [id number] 2.16.840.1.828436.3.579.2. 462 Unknown [id number] 2.16.840.1.838880.3.579.2. 462 Unknown [id number] 2.16.840.1.908877.3.579.2. 462 Unknown [id number] 2.16.840.1.359637.3.579.2. 462 Unknown [id number] 2..840.1.156443.3.579.2. 462 Unknown [id number] 2..840.1.127562.3.579.2. 462 Unknown [id number] 2..840.1.497111.3.579.2. 462 Unknown [id number] 2..840.1.198563.3.579.2. 462 Social History Date Type Detail Facility [facility] [place] if ever smoked [facility] Start: 1980 Sex Assigned At Not on file [facility] Start: 04-18-1999 End: 07-19-2022 Tobacco smoking status NHIS Current every day smoker [facility] Start: 04-18-1999 End: 01-17-2024 History of tobacco use Cigarette Smoker [facility] Start: 08-09-2018 End: 03-17-2025 Cigarettes smoked current (pack per day) - Reported [facility] Start: 08-08-2018 End: 02-09-2022 History SDOH Alcohol Frequency 2 [facility] Start: 08-09-2018 End: 02-09-2022 History SDOH Social Connections Phone 4 [facility] Start: 08-09-2018 End: 02-09-2022 History SDOH Social Connections [facility] Start: 08-09-2018 End: 02-09-2022 History SDOH Social Connections Living 5 [facility] Start: 08-09-2018 End: 02-09-2022 History SDOH Physical Activity DPW 0 [facility] Start: 02-23-2019 End: 03-17-2025 Alcohol intake Current drinker of alcohol (finding) [facility] Start: 01-30-2022 End: 07-18-2022 Exposure to SARS-CoV-2 (event) Not sure [facility] Start: 01-11-2020 End: 03-13-2024 Tobacco use and exposure Never used [facility] Start: 06-26-2021 End: 04-18-2023 Tobacco smoking consumption unknown [facility] Start: 07-21-2019 Cigarettes [facility] Start: 1980 Sex Assigned At Female [facility] Start: 02-09-2022 History SDOH Social Connections Living 8 [facility] Start: 02-09-2022 End: 03-17-2025 Humiliation, Afraid, Rape, and Kick questionnaire [HARK] [facility] Within the last year , have [...] days [OSQ] Rather much [facility] (I/We) worried wheth er (my/our) food would run out before (I/we) got money to buy more. Never true [facility] Start: 08-09-2018 Gender identity Identifies as female gender (finding) [facility] Start: 08-09-2018 Sexual orientation Heterosexual (finding) [facility] Start: 03-13-2024 Tobacco smoking status NHIS Ex-smoker [facility] Start: 04-18-1999 End: 01-17-2024 History of tobacco use Current smoker [facility] Start: 12-08-2024 Tobacco smoking status SDIS Current Light tobacco smoker [facility] Start: 03-17-2025 Alcohol Comment Holidays and special occasions [facility] Goals Date Patient Goal Desired Activity /State Mental Status Date Assessment Result Facility 12-08-2024 Cognitive function Awake;Alert;A ppropriate;Fol lows Commands [facility] Work Phone: Clinical Notes 12-08-2020 to 03-17-2025 Assessment & Plan Note - Mela Walker CNP - 03/17/2025 3:11 PM EDTAssessment & Plan Note - Mela Walker CNP - 03/17/2025 3:11 PM EDTMela Walker CNP - 03/17/2025 2:20 PM EDT Note Date & Type Note Facility 03-17-2025 Evaluation + Plan note Associated Problem(s): ADHD I have ordered a [...] checked today, you were given a 1 month supply, follow-up in the office as scheduled. [facility] 03-17-2025 Miscellaneous Notes Associate d Problem(s): ADHD I [...] checked today, you were given a 1 month supply, follow-up in the office as scheduled. Associated Problem(s): Screening mammogram for breast cancer It is time to get your Mammogram done. Please call and schedule your appointment. [facility] ( [facility]) [address] [place], [place] [id number] Associated Problem(s): Well adult exam Doing well, denies complaints at this time. Health maintenance updated and reviewed with patient. It is recommended that you complete at least 150 minutes of cardiovascular activity weekly. documented in this encounter [facility] 03-17-2025 Evaluation + Plan note Associated Problem(s): Screening mammogram for breast cancer It is time to get your Mammogram done. Please call and schedule your appointment. [facility] ( [facility]) [address] [place] [id number] [facility] 03-17-2025 Evaluation + Plan note Associated Problem(s): Well adult exam Doing well, denies complaints at this time. Health maintenance updated and reviewed with patient. It is recommended that you complete at least 150 minutes of cardiovascular activity weekly. [facility] 03-17-2025 History of Presen t illness Narrative Images from the original note were not included. OUTPATIENT WELL ADULT PROGRESS NOTE Frida Win is a 44 y.o. female and is here for a preventative care visit. Patient's medical and surgical history was updated, as well as family's medical history. Health maintenance was reviewed and updated Patient is a 44 y.o. female with a past medical history of Patient Active Problem List Diagnosis ADHD Hidradenitis suppurativa ANISH (generalized anxiety disorder) Depression Mood disorder Well adult exam Intractable migraine with aura without status migrainosus Screening mammogram for breast cancer Vitamin D deficiency Iron deficiency Morbid obesity with BMI of 40.0-44.9, adult (HCC) Dyslipidemia, goal LDL below 100 who presents to the office today for a well adult exam. Patient is doing well and denies complaints at this time. 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 Not applicable Mammogram Due Date or Overdue Date Topic Date Due Mammogram 03/21/2025 Last Mammogram completed 01/23/2023, BiRads 0 - [...] Substance and Sexual Activity Alcohol use: Yes Comment: Holidays and special occasions Drug use: Never Sexual activity: Yes Partners: Male control/protection: Surgical Social Drivers of Health Financial Resource Strain: Low Risk (03/17/2025) Overall Financial Resource Strain (CARDIA) Difficulty of Paying Living Expenses: Not hard at all Food Insecurity: No Food Insecurity (03/17/2025) Hunger Vital Sign Worried About Running Out of Food in the Last Year: Never true Ran Out of Food in the Last Year: Never true Transportation Needs: No Transportation Needs (03/17/2025) PRAPARE - Transportation Lack of Transportation (Medical): No Lack of Transportation (Non-Medical): No Physical Activity: Unknown (02/09/2022) Exercise Vital Sign Days of Exercise per Week: 4 days Stress: Stress Concern Present (02/09/2022) [employer] [place] [employer] - Occupational Stress Questionnaire Feeling of Stress : Rather much Social Connections: Moderately Isolated (02/09/2022) Social Connection and Isolation Panel [NHANES] Frequency of Communication with Friends and Family: More than three times a week Frequency of Social Gatherings with Friends and Family: Once a week Attends [employer] Services: Never Active Member of Clubs or Organizations: No Attends Club or Organization Meetings: Never Marital Status: Living with partner Housing Stability: Low Risk (03/17/2025) Housing Stability Vital Sign Unable to Pay for Housing in the Last Year: No Number of Times Moved in the Last Year: 0 Homeless in the Last Year: No Family History [...] Date HYSTERECTOMY 2007 Patient's Medications New Prescriptions DEXTROAMPHETAMINE-AMPHETAMINE (ADDERALL) 10 MG TABLET Take 1 (one) tablet (10 mg total) by mouth daily . DEXTROAMPHETAMINE-AMPHETAMINE (ADDERALL) 30 MG TABLET Take 1 (one) tablet (30 mg total) by mouth daily . Previous Medications BIMEKIZUMAB-BKZX (BIMZELX AUTOINJECTOR SUBQ) CLINDAMYCIN 1 % GEL CLONIDINE HCL (CATAPRES) 0.1 MG TABLET Take 1 (one) tablet (0.1 mg total) by mouth nightly . LAMOTRIGINE (LAMICTAL) 100 MG TABLET Take 1 (one) tablet (100 mg total) by mouth daily . PANTOPRAZOLE (PROTONIX) 40 MG TABLET Take 1 (one) tablet (40 mg total) by mouth daily . RIMEGEPANT (NURTEC ODT) 75 MG ODT Dissolve 1 (one) tablet (75 mg total) on top of tongue daily as needed . SERTRALINE (ZOLOFT) 100 MG TABLET Take 1 (one) tablet (100 mg total) by mouth daily . Modified Medications Modified Medication Previous Medication ONDANSETRON (ZOFRAN) 4 MG TABLET ondansetron (ZOFRAN) 4 MG tablet Take 1 (one) tablet (4 mg total) by mouth every 8 (eight) hours as needed for nausea . Take 1 (one) tablet (4 mg total) by mouth every 8 (eight) hours as needed for nausea . Discontinued Medications DEXTROAMPHETAMINE-AMPHETAMINE (ADDERALL XR) 30 MG 24 HR CAPSULE Take 1 (one) capsule (30 mg total) by mouth 2 (two) times a day Start: 03/05/25. DEXTROAMPHETAMINE-AMPHETAMINE (ADDERALL XR) 30 MG 24 HR CAPSULE Take 1 (one) capsule (30 mg total) by mouth 2 (two) times a day . DEXTROAMPHETAMINE-AMPHETAMINE (ADDERALL XR) 30 MG 24 HR CAPSULE Take 1 (one) capsule (30 mg total) by mouth 2 (two) times a day Start: 02/05/25. ERGOCALCIFEROL (ERGOCALCIFEROL) 1,250 MCG (50,000 UNIT) CAPSULE Take 1 (one) capsule (50,000 Units total) by mouth once a week . LISDEXAMFETAMINE (VYVANSE) 60 MG CAPSULE Take 1 (one) capsule (60 mg total) by mouth every morning . SULFAMETHOXAZOLE-TRIMETHOPRIM (BACTRIM DS,SEPTRA DS) 800-160 MG PER TABLET Take 1 (one) tablet by mouth 2 (two) times a day . TOPIRAMATE (TOPAMAX) 25 MG TABLET Take 25mg in the AM, and 50mg in the PM . Objective: BP 109/79 (BP Location: Right arm, Patient Position: Sitting, BP Cuff Size: X-large Adult) Pulse (!) 112 Temp 98 F (36.7 C) (Oral) Resp 16 Ht 5' 3 Wt 111.7 kg (246 lb 3.2 oz) SpO2 96% BMI 43.61 kg/m Review of Systems Review of Systems [...] agitation. The patient is not nervous/anxious. Vitals: 03/17/25 1430 BP: 109/79 BP Location: Right arm Patient Position: Sitting BP Cuff Size: X-large Adult Pulse: (!) 112 Resp: 16 Temp: 98 F (36.7 C) TempSrc: Oral SpO2: 96% Weight: 111.7 kg (246 lb 3.2 oz) Height: 5' 3 Body mass index is 43.61 kg/m . The 10-year ASCVD risk score (Vandana LOWE, et al., 2019) is: 0.4% Values used to calculate the score: Age: 44 years Sex: Female Is Non- : No Diabetic: No Tobacco smoker: No Systolic Blood Pressure: 109 mmHg Is BP treated: No HDL Cholesterol: 56 mg/dL Total Cholesterol: 167 mg/dL Physical Exam Physical Exam Vitals and nursing note reviewed. Constitutional: Appearance: Normal appearance. She is well-developed and well-groomed. She is obese. HENT: Head: Normocephalic. Right Ear: Tympanic membrane, ear canal and external ear normal. Left Ear: Tympanic membrane, ear canal and external ear normal. Nose: Nose normal. Mouth/Throat: Lips: [place]. Mouth: Mucous membranes are moist. Pharynx: Oropharynx [...] checked today, you were given a 1 month supply, follow-up in the office as scheduled. Relevant Medications dextroamphetamine-amphetamine (ADDERALL) 30 mg tablet dextroamphetamine-amphetamine (ADDERALL) 10 mg tablet Well adult exam - Primary Doing well, denies complaints at this time. Health maintenance updated and reviewed with patient. It is recommended that you complete at least 150 minutes of cardiovascular activity weekly. Screening mammogram for breast cancer It is time to get your Mammogram done. Please call and schedule your appointment. [facility] ( [facility]) [address] [place], [place] [id number] Relevant Orders Mammography Screening [facility] Bilateral Goals None Electronically signed by: Mela Walker C.N.P 03/17/25 3:12 PM General Patient Counseling Given: --Nutrition: Stressed [...] Dexa Scan (screening of osteoporosis) and colonoscopy. 03/17/2025 2:00 PM PHQ-9 Review Little interest or pleasure in doing things 1 Feeling down, depressed, or hopeless 0 PHQ-2 Total Score 1 Trouble falling or staying asleep, or sleeping too much 3 Feeling tired or having little energy 3 Poor appetite or overeating 2 Feeling bad about yourself - or that you are a failure or have let yourself or your family down 0 Trouble concentrating on things, such as reading the newspaper or watching television 2 Moving or speaking so slowly that other people could have noticed. Or the opposite - being so fidgety or restless that you have been moving around a lot more than usual 1 Thoughts that you would be better off , or of hurting yourself in some way 0 PHQ-9 Total Score 12 If you checked off any problems, how difficult have these problems made it for you to do your work, take care of things at home, or get along with other people? Somewhat difficult Clinically, patient does not have depression. No treatment is required. documented in this encounter [facility] 03-17-2025 Note OUTPATIENT WELL ADUL T PROGRESS NOTE Frida Win is a 44 y.o. female and is here for a preventative care visit. Patient's medical and surgical history was updated, as well as family's medical history. Health maintenance was reviewed and updated Patient is a 44 y.o. female with a past medical history of Patient Active Problem List Diagnosis ADHD Hidradenitis suppurativa ANISH (generalized anxiety disorder) Depression Mood disorder Well adult exam Intractable migraine with aura without status migrainosus Screening mammogram for breast cancer Vitamin D deficiency Iron deficiency Morbid obesity with BMI of 40.0-44.9, adult (HCC) Dyslipidemia, goal LDL below 100 who presents to the office today for a well adult exam. Patient is doing well and denies complaints at this time. 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 Not applicable Mammogram Due Date or Overdue Date Topic Date Due Mammogram 03/21/2025 Last Mammogram completed 01/23/2023, BiRads 0 - [...] Substance and Sexual Activity Alcohol use: Yes Comment: Holidays and special occasions Drug use: Never Sexual activity: Yes Partners: Male control/protection: Surgical Social Drivers of Health Financial Resource Strain: Low Risk (03/17/2025) Overall Financial Resource Strain (CARDIA) Difficulty of Paying Living Expenses: Not hard at all Food Insecurity: No Food Insecurity (03/17/2025) Hunger Vital Sign Worried About Running Out of Food in the Last Year: Never true Ran Out of Food in the Last Year: Never true Transportation Needs: No Transportation Needs (03/17/2025) PRAPARE - Transportation Lack of Transportation (Medical): No Lack of Transportation (Non-Medical): No Physical Activity: Unknown (02/09/2022) Exercise Vital Sign Days of Exercise per Week: 4 days Stress: Stress Concern Present (02/09/2022) [employer] [place] [employer] - Occupational Stress Questionnaire Feeling of Stress : Rather much Social Connections: Moderately Isolated (02/09/2022) Social Connection and Isolation Panel [NHANES] Frequency of Communication with Friends and Family: More than three times a week Frequency of Social Gatherings with Friends and Family: Once a week Attends Moravian Services: Never Active Member of Clubs or Organizations: No Attends Club or Organization Meetings: Never Marital Status: Living with partner Housing Stability: Low Risk (03/17/2025) Housing Stability Vital Sign Unable to Pay for Housing in the Last Year: No Number of Times Moved in the Last Year: 0 Homeless in the Last Year: No Family History Problem Relation Age of Onset Diabetes Father Hypertension Father Clotting disorder Sister Lung cancer Maternal Grandfather Cancer Maternal Grandfather Bone cancer Paternal Grandfather Cancer Paternal Grandfather Arthritis Mother Hypertension Mother Mental illness Mother Depression Mother ADD / ADHD Mother Asthma Brother Hypertension Paternal Grandmother Hyperlipidemia Paternal Grandmother Heart disease Paternal Grandmother Hypertension Brother Allergies All (more content not included)... [facility] 01-29-2025 Evaluation note Diagnosis Onset Date Resolution Cervicogenic headache acute Jan 2:55pm Segmental and somatic dysfunction of cervical region acute January 29 2:55pm Segmental and somatic dysfunction of lumbar region acute January 29 2:55pm Segmental and somatic dysfunction of pelvic region acute January 29 2:55pm Segmental and somatic dysfunction of thoracic region acute January 29 2:55pm [facility] Work Phone: 1(880) 227-297506-23-2025 [facility] [address] [place] [address] OFFICE VISIT Date of Service: 03/23/25 MR#: [id number] Acct: [id number] Patient: FRIDA WIN Rep #: [id number] : 1980 Provider: MARTHA Arnold Age/Sex: 44/F Location: [facility] [place] Status: Signed Intake Vital Signs 12/08/24 07:11 Height 5 ft 3 in Intake Visit Reasons: COVID TEST Chief Complaint: Back pain Allergies amoxicillin (From Augmentin) Allergy (Verified 01/29/25 15:13) Shortness of breath clavulanic acid (From Augmentin) Allergy (Verified 01/29/25 15:13) Shortness of breath Nurse's Note: Patient is here for a COVid test. Results POC TAYLOR Covid FluAB PCR POC Taylor Covid PCR Not Detected Last Edit by Ayaka Hopkins MA on 03/23/25 10:55 POC TAYLOR FLU NOT DETECTED FLU A&B Last Edit by Ayaka Hopkins MA on 03/23/25 10:55 Assessment and Plan Assessment and Plan Orders: Orders POC Taylor Covid FLUAB PCR Today Plan Details Goals & Barriers: Goals Decrease spasm Improve alignment Decrease pain Improve LOPEZ 03/23/25 1115 s MARTHA THOMAS> Date _ Kevin Paulign Signature: Date (if applicable) CC: ~ [facility]06-23-2025 Discharge summary [facility] Medical Records Department [address] [place] [address] Emergency Department Summary 12/08/24 MR#: [id number] Acct: [id number] Name: FRIDA WIN Rep #:[id number] : 1980 44 From: Deonte Beckett [...] notes that this is not unusual forher. 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 NIH is 0 [...] feel this less likely based on revised Kingston score, pancreatitis,orthostatic hypotension, vasovagal syncope/near syncope. Once workup is obtained reviewed she will be reevaluated. Orthostatic vital signs will be checked. Patient be given IV fluids for hydration. Patient be given Reglan. Kingston Score (Revised) for Pulmonary Embolism from [employer] on 12/08/2024 All calculations should be rechecked [...] 76.0 H Lymph % (Auto) 17.8 L [place] % (Auto) 4.0 Eos % (Auto) 1.1 [...] acute osseous process is seen. Reading Location: [place] [address] Discharge Plan Triage Chief Complaint: Dizziness ED [...] was normal your chest x-ray did not showany acute findings either. Return with worsening symptoms or any other concerns. Print Language: Syrian Disposition Disposition: Home, Self Care What to do if you have Problems For any increased pain, shortness of breath, bleeding, nausea or vomiting, chestpain, or any unexpected problems, contact your Primary Care Provider. Call [facility] ([phone]) or report tothe closest Emergency Room. Call 911 if necessary. 12/08/24 1119 Cosigner Signature (if applicable): CC: FILIBERTO Walker ~ Signed [facility]06-23-2025 Radiology Diagnostic study note [facility] Imaging Services [address] [place], [place] [address] Chest 1 View (Portable) MR#: [id number] Acct: [id number] Name: FRIDA WIN Rep #: [id number] : 1980 F 44 From: Abisai Morgan MD PCP: FILIBERTO Cooper Status: REG ER Study:Chest 1 View (Portable) Date of Exam: 12/08/24 Exam# [id number] Ordering Dr: Ky Beckett DO PROCEDURE: CHEST [...] acute osseous process is seen. Reading Location: [place] [address] CC: FILIBERTO Walker; Dr. Deonte Beckett, DO ~ [employer] Cutter: Signed [facility]04-29-2025 Evaluation note* Diagnosis Onset Date Resolution Status Admit Date Women's annual routine gynecological examination acute October 14, 2024 3:02pm [facility] Work Phone: 1(381) 811-483304-29-2025 Evaluation note* Diagnosis Onset Date Resolution Status Admit Date Women's annual routine gynecological examination acute October 14, 2024 3:02pm Segmental and somatic dysfunction of cervical region acute A ugust 2024 2:55pm Segmental and somatic dysfunction of lumbar region acute Aug ust 2024 2:55pm Segmental and somatic dysfunction of pelvic region acute Aug ust 2024 2:55pm Segmental and somatic dysfunction of thoracic region acute A ugust 2024 2:55pm [facility] Work Phone: [phone]) [phone] Evaluation + Plan note* Assessment & Plan Note - Mela Walker CNP - 09/10/2024 11:47 AM EDTAssociated Problem(s): Depression As discussed within your appointment today, you are doing well on sertraline. I would like you to continue to take your medication(s) as ordered. If medication refills are needed, they have been sentto your pharmacy. [id number] Evaluation + Plan note* Assessment & Plan [...] supply, follow-up in the office as scheduled. [id number] Miscellaneous Notes* Assessment & Plan Note - [...] the office as scheduled. 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 [...] 4 days Stress: Stress Concern Present (02/09/2022) [employer] [place] [employer] - Occupational Stress Questionnaire Feeling of Stress : Rather much Social Connections: Moderately Isolated (02/09/2022) Social Connection and Isolation Panel [NHANES] Frequency of Communication with Friends and Family: More than three times a week Frequency of Social Gatherings with Friends and Family: Once a week Attends Moravian Services: Never Active Member of Clubs or Organizations: No Attends Club or Organization Meetings: Never Marital Status: Living with partner Housing Stability: Low Risk (02/09/2022) Pattie (more content not included)...[facility]09-26-2024 Evaluation + Plan note* Assessment & Plan [...] supply, follow-up in the office as scheduled. [id number] Evaluation + Plan note* Assessment & Plan Note - Mela Walker CNP - 03/13/2024 3:24 PM EDTAssociated Problem(s): Dyslipidemia, goal LDL below 100 I have sent Gildardovy into your pharmacy, this medication is a [...] is titrated to the maintenance dose. T [id number] Evaluation + Plan note* Assessment & Plan Note - Mela Walker CNP - 03/13/2024 3:24 PM EDTAssociated Problem(s): Screening mammogram for breast cancer Today I have ordered her mammogram for you to have completed. Please call and schedule this at yourearliest convenience. If an order was placed today, the hospital will contact you to schedule an appointment. [id number] Evaluation + Plan note* Assessment & Plan Note - Mela Walker CNP - 03/13/2024 3:24 PM EDTAssociated Problem(s): Well adult exam Doing well, denies complaints at this time. Health maintenance updated and reviewed with patient. It is recommended that you complete at least 150 minutes of cardiovascular activity weekly. T [id number] Miscellaneous Notes* Assessment & Plan Note - [...] goal LDL below 100 I have sent Pavelgovy into your pharmacy, this medication is a [...] of cardiovascular activity weekly. 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 The 10-year ASCVD risk score (Vandana DK, et al., 2019) is: 0.5% Values used [...] ear normal. Nose: Nose normal. Mouth/Throat: Lips: [place]. Mouth: Mucous membranes are moist. Pharynx: Oropharynx [...] (screening of osteoporosis) andcolonoscopy. documented in this [id number] History of Present illness Narrative* Mela Walker CNP - 02/11/2024 7:54 AM EDT Patient requesting medication be sent to [facility]. documented in this [id number] Evaluation + Plan note* Assessment & Plan Note - Mela Walker CNP - 10/16/2023 2:26 PM EDT Associated Problem(s): Depression As discussed within your appointment today, you are doing well on Zoloft, and Lamictal. I would like you to continue to take your medication(s) as ordered. If medication refills are needed, they havebeen sent to your pharmacy. [id number] Miscellaneous Notes* Assessment & Plan Note - [...] refills are needed, they have been sent [facility]. * Assessment & Plan Note - [...] the office as scheduled. documented in this [id number] Evaluation + Plan note* Assessment & Plan Note - Mela Walker CNP - 10/16/2023 2:25 PM EDT Associated Problem(s): Intractable migraine with aura without status migrainosus As discussed within your appointment today, you are doing well on Topamax. I would like you to continue to take your medication(s) as ordered. If medication refills are needed, they have been sent [facility] pharmacy. [id number] Evaluation + Plan note* Assessment & Plan [...] supply, follow-up in the office as scheduled. 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 [...] Pneumococcal Vaccine: Ped or At-Risk (1 of - PCV) 04/04/2024 (Originally 08/19/1987) COVID-19 Vaccine (2022-) 04/07/2024 (Originally 02/16/2023) Mammogram 01/24/2024 Wellness Visit 04/04/2024 [...] 4 days Stress: Stress Concern Present (02/09/2022) [employer] - Occupational Stress Questionnaire Feeling of Stress : Rather much Social Connections: Moderately Isolated (02/09/2022) Social Connection and Isolation Panel [NHANES] Frequency of Communication with Friends and Family: More than three times a week Frequency of Social Gatherings with Friends and Family: Once a week Attends Moravian Services: Never Active Member of Clubs or [...] and Memory: Cognition normal. Judgment: Judgment normal. OARRS/Tabatha Report Received and Assessed: Mela Walker CNP [...] refills are needed, they have been sent [facility] pharmacy. Relevant Medications lamoTRIgine (LAMICTAL) 100 MG [...] effects of the medications. documented in this [id number] Evaluation + Plan note* Assessment & Plan [...] supply, follow-up in the office as scheduled. [id number] Miscellaneous Notes* Assessment & Plan Note - Mela Walker CNP - 07/05/2023 3:37 PM ESTAssociated Problem(s): ADHD I have ordered a 90 day supply of your Mydais. This is a controlled substance which is [facility]. To have this medication refilled, you [...] sent to your pharmacy. documented in this [id number] Evaluation + Plan note* Assessment & Plan Note - Mela Walker CNP - 07/05/2023 3:36 PM EST Associated Problem(s): Depression As discussed within your appointment today, you are doing well on Zoloft. I would like you to continue to take your medication(s) as ordered. If medication refills are needed, they have been sent to your pharmacy. [id number] Evaluation + Plan note* Assessment & Plan Note - Mela Walker CNP - 07/05/2023 3:36 PM ESTAssociated Problem(s): Vitamin D deficiency As discussed within your appointment today, you are doing well on vitamin D. I would like you to continue to take your medication(s) as ordered. If medication refills are needed, they have been sent to your pharmacy. [id number] Evaluation + Plan note* Assessment & Plan Note - Mela Walker CNP - 07/05/2023 3:35 PM ESTAssociated Problem(s): Intractable migraine with aura without status migrainosus As discussed within your appointment today, you are doing well on Nurtec. I would like you to continue to take your medication(s) as ordered. If medication refills are needed, they have been sent to your pharmacy. 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 [...] PCV) 04/04/2024 (Originally 08/19/1987) COVID-19 Vaccine ( season) 2024 (Originally 02/16/2023) Mammogram 01/24/2024 Wellness [...] 4 days Stress: Stress Concern Present (02/09/2022) [employer] - Occupational Stress Questionnaire Feeling of Stress : Rather much Social Connections: Moderately Isolated (02/09/2022) Social Connection and Isolation Panel [NHANES] Frequency of Communication with Friends and Family: More than three times a week Frequency of Social Gatherings with Friends and Family: Once a week Attends Moravian Services: Never Active Member of Clubs or [...] effects of the medications. documented in this [id number] Evaluation + Plan note* Assessment & Plan Note - Mela Walker CNP - 04/04/2023 1:53 PM EDT Associated Problem(s): Well adult exam Doing well, denies complaints at this time. Health maintenance updated and reviewed with patient. It is recommended that you complete at least 150 minutes of cardiovascular activity weekly. [id number] Miscellaneous Notes* Assessment & Plan Note - [...] take this as ordered. documented in this [id number] Evaluation + Plan note* Assessment & Plan [...] supply, follow-up in the office as scheduled. [id number] Evaluation + Plan note* Assessment & Plan Note - Mela Walker CNP - 04/04/2023 1:50 PM EDTAssociated Problem(s): Iron deficiency I have sent an iron supplement into your pharmacy, please take this as ordered. 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] (screening of osteoporosis) andcolonoscopy. documented in this [id number] Evaluation + Plan note* Assessment & Plan Note - Mela Walker CNP - 10/18/2022 2:12 PM EDT Associated Problem(s): Mood disorder (HCC) I have increased the Lamictal to 75mg daily, please let me know if you develop any side effects from this dose change. [id number] Miscellaneous Notes* Assessment & Plan Note - [...] the office as scheduled. documented in this [id number] Evaluation + Plan note* Assessment & Plan [...] supply, follow-up in the office as scheduled. 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 HENT: Nose: Nose normal. Mouth/Throat: Lips: [place]. Pulmonary: Effort: Pulmonary effort is normal. Musculoskeletal: [...] Cognition and memory normal. Judgment: Judgment normal. OARRS/JENNIFERxCHERASTA Report Received and Assessed: 10/18/2022 Date controlled substance agreement signed: 02/10/2022 Date of last drug screen: 02/10/2022 Functional Assessment: No data found The 10-year ASCVD risk score (Vandana DK, et al., 2019) is: 1.7% Values used [...] 25 MG tablet Goals None [place] Visit [facility] [address] [facility] [address] [place] [address] Via Real-time Synchronous Audiovisual [facility] 10/18/2022 Mela Walker CNP Provider Location: [facility] PCP, or provider's home Patient Location Water Trainer: None Patient Location: Work Patient: Frida Win [...] there are inherent diagnostic limitations compared to lmvv-ki-hrzt evaluations. We elected to proceed with the video visit telemedicine consultation. For any new medications prescribed today, patient was educated about indications for the medication, how to take the medication and potential side effects of the medications. documented in this [id number] Evaluation + Plan note* Assessment & Plan Note - Mela Walker CNP - 07/25/2022 1:48 PM EST Associated Problem(s): Mood disorder (HCC) As discussed within your appointment today, you are doing well on Lamictal, and Zoloft. I would like you to continue to take your medication(s) as ordered. If medication refills are needed, they havebeen sent to your pharmacy. [id number] Evaluation + Plan note* Assessment & Plan [...] supply, follow-up in the office as scheduled. [id number] Evaluation + Plan note* Assessment & Plan Note - Mela Walker CNP - 07/25/2022 1:48 PM ESTAssociated Problem(s): Intractable migraine with aura without status migrainosus As discussed within your appointment today, you are doing well on Topamax. I would like you to continue to take your medication(s) as ordered. If medication refills are needed, they have been sent toyour pharmacy. [id number] Miscellaneous Notes* Assessment & Plan Note - [...] refills are needed, they have been sent [facility] pharmacy. 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. Relevant Medications lamoTRIgine (LAMICTAL) 25 [...] effects of the medications. documented in this [id number] Telephone encounter Note* Telephone Encounter - Mela Walker CNP - 06/28/2022 3:44 PM EST Please call the patient to schedule an appointment. She would like one in Jul. Thank you [id number] Miscellaneous Notes* Telephone Encounter - Mela Walker CNP - 06/28/2022 3:44 PM EST Please call the patient to schedule an appointment. She would like one in Jul. Thank you documented in this [id number] Evaluation + Plan note* Assessment & Plan [...] supply, follow-up in the office as scheduled. [id number] Miscellaneous Notes* Assessment & Plan Note - [...] and schedule your appointment. [facility] ( [facility]) [address] [place] [address] * Assessment & Plan Note - Mela Walker CNP - 02/23/2022 9:39 PM EDT Associated Problem(s): Intractable migraine with aura without status migrainosus With your worsening migraines, I would like you to start taking topamax as ordered, and Nurtec as needed. It is my hope that with these two medications, we can gain control over your migraines. documented in this [id number] Evaluation + Plan note* Assessment & Plan Note - Mela Walker CNP - 02/23/2022 9:40 PM EDT Associated Problem(s): Depression I would like you to start taking Zoloft. When you start this medication stop taking the Prozac. Please contact the office if you do not notice any improvement in your mood. [id number] Evaluation + Plan note* Assessment & Plan Note - Mela Walker CNP - 02/23/2022 9:40 PM EDTAssociated Problem(s): Screening mammogram for breast cancer It is time to get your Mammogram done. Please call and schedule your appointment. [facility] ( [facility]) [address] [place], [place] [id number] Evaluation + Plan note* Assessment & Plan Note - Mela Walker CNP - 02/23/2022 9:39 PM EDTAssociated Problem(s): Intractable migraine with aura without status migrainosus With your worsening migraines, I would like you to start taking topamax as ordered, and Nurtec as needed. It is my hope that with these two medications, we can gain control over your migraines. 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 [facility] ( [facility]) [address] [place] [id number] Relevant Orders Mammography Screening Ortiz Bilateral Goals None For any new medications prescribed today, patient was educated about indications for the medication, how to take the medication and potential side effects of the medications. documented in this [id number] Instructions* Patient Instructions* Mela Walker CNP - [...] to: Get organized. A daily organizer or digital sales planner can help these adults organize their [...] Log into your personal health record on [email or web address] and enter Z848 in the Education box to learn more about Learning About Attention Deficit Hyperactivity Disorder (ADHD) in Adults. Current as of: December 01, 2020 Content Version: 13.1 [employer]. Care instructions adapted under license by your healthcare professional. If you have questions about a medical condition or this instruction, always ask your healthcare professional. [employer] disclaims any warranty or liability for your use of this information. documented in this [id number] Miscellaneous Notes* Assessment & Plan Note - [...] the office as scheduled. 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 HENT: Nose: Nose normal. Mouth/Throat: Lips: [place]. Pulmonary: Effort: Pulmonary effort is normal. Musculoskeletal: [...] Goals None Video Visit [facility] [address] [facility] [address] [place] [address] Video Visit [facility] 06/06/2021 Mela Walker CNP Provider Location: opg office or provider's home Patient Location Water Trainer: None Patient Location: Patient's Home Patient: Frida [...] there are inherent diagnostic limitations compared to duql-ig-tivd evaluations. We elected to proceed with the video visit telemedicine consultation. For any new medications prescribed today, patient was educated about indications for the medication, how to take the medication and potential side effects of the medications. documented in this [id number] Instructions* Patient Instructions* Mela Walker CNP - [...] Log into your personal health record on [email or web address] and enter P072 in the Education box to learn more about Well Visit, Ages 18 to 50: Care Instructions. Current as of: July 29, 2020 Content Version: 13.0 [employer]. Care instructions adapted under license by your healthcare professional. If you have questions about a medical condition or this instruction, always ask your healthcare professional. [employer] disclaims any warranty or liability for your use of this information. documented in this [id number] Miscellaneous Notes* Assessment & Plan Note - Mela Walker CNP - 04/15/2021 9:07 AM EDT Associated Problem(s): Well adult exam Doing well, denies complaints at this time. Health maintenance updated and reviewed with patient. It is recommended that you complete at least 150 minutes of cardiovascular activity weekly. documented in this [id number] History of Present illness Narrative* Mela Walker [...] Friends and Family: Not on file Attends [employer] Services: Not on file Active Member of [...] 38.6 kg/m . The ASCVD Risk score (Wayzata SHEYLA Jr., et al., 2013) failed to calculate [...] (screening of osteoporosis) andcolonoscopy. documented in this [id number] Instructions* Patient Instructions* Mela Walker CNP - [...] to: Get organized. A daily organizer or digital sales planner can help these adults organize their [...] Log into your personal health record on [email or web address] and enter Z848 in the Education box to learn more about Learning About Attention Deficit Hyperactivity Disorder (ADHD) in Adults. Current as of: December 01, 2020 Content Version: 13.0 [employer]. Care instructions adapted under license by your healthcare professional. If you have questions about a medical condition or this instruction, always ask your healthcare professional. [employer] disclaims any warranty or liability for your use of this information. documented in this [id number] Miscellaneous Notes* Assessment & Plan Note - [...] the office as scheduled. 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 HENT: Nose: Nose normal. Mouth/Throat: Lips: [place]. Pulmonary: Effort: Pulmonary effort is normal. Musculoskeletal: [...] No data found The ASCVD Risk score (Wayzatapeña CARRION Jr., et al., 2013) failed to [...] Goals None Video Visit [facility] [address] [address] [facility] [id number] Video Visit [facility] 03/10/2021 Mela Walker CNP Provider Location: opg office or provider's home Patient Location Water Trainer: None Patient Location: Patient's Home Patient: Frida [...] there are inherent diagnostic limitations compared to wzqq-hk-ziaf evaluations. We elected to proceed with the video visit telemedicine consultation. For any new medications prescribed today, patient was educated about indications for the medication, how to take the medication and potential side effects of the medications. documented in this [id number] Miscellaneous Notes* Assessment & Plan Note - [...] is working for you. documented in this [id number] Instructions* Patient Instructions* Mela Walker CNP - [...] to: Get organized. A daily organizer or digital sales planner can help these adults organize their [...] Log into your personal health record on [email or web address] and enter Z848 in the Education box to learn more about Learning About Attention Deficit Hyperactivity Disorder (ADHD) in Adults. Current as of: March 10, 2020 Content Version: 12.8 [employer]. Care instructions adapted under license by your healthcare professional. If you have questions about a medical condition or this instruction, always ask your healthcare professional. [employer] disclaims any warranty or liability for your [...] do something you enjoy. Go to a [employer] movie, or take a walk or hike. [...] the numbers for these national suicide hotlines: 0-187-274-TALK ( ) and 0-065-NSAPKXN ( ). If you or someone you [...] Log into your personal health record on [email or web address] and enter P754 in the Education box to learn more about Anxiety Disorder: Care Instructions. Current as of: March 10, 2020 Content Version: 12.8 [employer]. Care instructions adapted under license by your healthcare professional. If you have questions about a medical condition or this instruction, always ask your healthcare professional. [employer] disclaims any warranty or liability for your use of this information. 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 [...] Social Gatherings with Friends and Family: Attends [employer] Services: Active Member of Clubs or Organizations: [...] complaint+Reason for visit Narrative * Chief Complaint [facility] SNF-COVID 19 REQ UIRED TESTING COVID TEST COVID-19 [facility] SNF-COVID 19 REQUIRED TESTING [facility] SNF-COVID 19 REQUIRED TESTING [facility] SNF-COVID 19 REQUIRED TESTING Reason for Visit Common cold Encounter for screening for COVID-19 [facility] Work Phone: Chief complaint+Reason for visit Narrative* Chief Complaint COVID TEST COVID-19 [facility] SNF-COVID 19 REQUIRED TESTING [facility] SNF-COVID 19 REQUIRED TESTING [facility] SNF-COVID 19 REQUIRED TESTING [facility] SNF-COVID 19 REQUIRED TESTING Reason for Visit Common cold Encounter for screening for COVID-19 [facility] Work Phone: Discharge summary Author Deonte Beckett [facility] Note Date/Time December 08, 2024 11:[address] [facility] Medical Records Department [address] [place] [id number] Emergency Department Summary 12/08/24 MR#: [id number] Acct: [id number] Name: FRIDA WIN Rep #:[id number] : 1980 44 From: Deonte Beckett [...] notes that this is not unusual forher. 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 NIH is 0 [...] feel this less likely based on revised Kingston score, pancreatitis, orthostatic hypotension, vasovagal syncope/near syncope. Once workup is obtained reviewed she will be reevaluated. Orthostatic vital signs will be checked. Patient be given IV fluids for hydration. Patient be given Reglan. Kingston Score (Revised) for Pulmonary Embolism from [facility] on 12/08/2024 All calculations should be rechecked [...] 76.0 H Lymph % (Auto) 17.8 L [place] % (Auto) 4.0 Eos % (Auto) 1.1 [...] acute osseous process is seen. Reading Location: [facility] Discharge Plan Triage Chief Complaint: Dizziness ED [...] symptoms or any other concerns. Print Language: Syrian Disposition Disposition: Home, Self Care What to do if you have Problems For any increased pain, shortness of breath, bleeding, nausea or vomiting, chestpain, or any unexpected problems, contact your Primary Care Provider. Call [facility] ([phone]) or report to the closest Emergency Room. Call 911 if necessary. 12/08/24 1119 <Electronically signed by Deonte Beckett DO> Cosigner Signature (if applicable): CC: FILIBERTO Walker ~ Signed [facility] Work Phone: Evaluation note* Diagnosis Attention [...] acute Encounter for screening for COVID-19 acute [facility] Work Phone: Evaluation noteNo assessment information available [facility] Work Phone: Evaluation note* Diagnosis Depression, unspecified depression type- Primary [...] and somatic dysfunction of thoracic region acute [facility] Work Phone: Evaluation note* Diagnosis Onset [...] of thoracic region acute Back pain noneactive [facility] Work Phone: Evaluation note* Diagnosis Attention [...] without status migrainosus [facility] Attention deficit hyperactivity disorder (ADHD), predominantly inattentive type [facility] Diagnosis Attention deficit hyperactivity disorder (ADHD), predominantly inattentive type- Primary [facility] Diagnosis Well adult exam- Primary Routine general medical examination at a health care facility Attention deficit hyperactivity disorder (ADHD), predominantly inattentive type Therapeutic drug monitoring Encounter for therapeutic drug monitoring Screening mammogram for breast cancer Morbid obesity with BMI of 40.0-44.9, adult (HCC) Dyslipidemia, goal LDL below 100 [facility]* Diagnosis Encounter for well adult exam [...] general medical examination at a health care [facility] Attention deficit hyperactivity disorder (ADHD), predominantly inattentive type Mood disorder Unspecified episodic mood disorder Attention deficit hyperactivity disorder (ADHD), predominantly inattentive type Vitamin D deficiency Intractable migraine with aura without status migrainosus Well adult exam- Primary Routine general medical examination at a health care [facility] Iron deficiency Disorders of iron metabolism Attention [...] Primary Routine general medical examination at a [facility] care [facility] Attention deficit hyperactivity disorder (ADHD), predominantly inattentive type Therapeutic drug monitoring Encounter for therapeutic drug monitoring Screening mammogram for breast cancer Morbid obesity with BMI of 40.0-44.9, adult (HCC) Dyslipidemia, goal LDL below 100 Intractable migraine with aura without status migrainosus Attention deficit hyperactivity disorder (ADHD), predominantly inattentive type [facility]* Diagnosis Encounter for well adult exam without abnormal findings- Primary Attention deficit hyperactivity disorder (ADHD), unspecified ADHD type Attention deficit hyperactivity disorder (ADHD), unspecified ADHD type Attention deficit hyperactivity disorder (ADHD), unspecified ADHD type Attention deficit hyperactivity disorder (ADHD), 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), unspecified ADHD type Well adult exam- Primary Routine general medical examination at a health care [facility] Attention deficit hyperactivity disorder (ADHD), unspecified ADHD [...] general medical examination at a health care [facility] Intractable migraine with aura without status migrainosus [...] exam Routine general medical examination at a [facility] Attention deficit hyperactivity disorder (ADHD), predominantly inattentive type Mood disorder Unspecified episodic mood disorder Attention deficit hyperactivity disorder (ADHD), predominantly inattentive type Vitamin D deficiency Intractable migraine with aura without status migrainosus Well adult exam- Primary Routine general medical examination at a [facility] care [facility] Iron deficiency Disorders of iron metabolism Attention [...] general medical examination at a health care [facility] Attention deficit hyperactivity disorder (ADHD), predominantly inattentive [...] general medical examination at a health care [facility] Attention deficit hyperactivity disorder (ADHD), unspecified ADHD [...] Primary Routine general medical examination at a [facility] care facility Attention deficit hyperactivity disorder (ADHD), 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), predominantly inattentive type ANISH (generalized anxiety disorder) Generalized anxiety disorder Depression, unspecified depression type- Primary Attention deficit hyperactivity disorder (ADHD), predominantly inattentive type Intractable migraine with aura without status migrainosus Screening mammogram for breast cancer Well adult exam- Primary Routine general medical examination at a [facility] Intractable migraine with aura without status [...] exam Routine general medical examination at a [facility] care [facility] Attention deficit hyperactivity disorder (ADHD), predominantly inattentive [...] predominantly inattentive type documented in this encounter [facility] note* Diagnosis Encounter for well adult [...] Primary Routine general medical examination at a [facility] care [facility] Intractable migraine with aura without status migrainosus [...] unspecified depression type [facility]* Diagnosis Encounter for well adult exam [...] general medical examination at a health care [facility] Attention deficit hyperactivity disorder (ADHD), predominantly inattentive type Therapeutic drug monitoring Encounter for therapeutic drug monitoring Screening mammogram for breast cancer Morbid obesity with BMI of 40.0-44.9, adult (HCC) Dyslipidemia, goal LDL below 100 Attention deficit hyperactivity disorder (ADHD), predominantly inattentive type- Primary Depression, unspecified depression type Attention deficit hyperactivity disorder (ADHD), predominantly inattentive type [facility]* Diagnosis Encounter for well adult exam [...] general medical examination at a health care [facility] Iron deficiency Disorders of iron metabolism Attention [...] general medical examination at a health care [facility] Attention deficit hyperactivity disorder (ADHD), predominantly inattentive [...] inattentive type- Primary Depression, unspecified depression type Depression, unspecified depression type documented in this encounter [facility] note* Diagnosis Encounter for well adult [...] inattentive type- Primary Depression, unspecified depression type Depression, unspecified depression type [facility] Diagnosis Encounter for well adult exam [...] general medical examination at a health care [facility] Attention deficit hyperactivity disorder (ADHD), predominantly inattentive type Mood disorder Unspecified episodic mood disorder Attention deficit hyperactivity disorder (ADHD), predominantly inattentive type Vitamin D deficiency Intractable migraine with aura without status migrainosus Well adult exam- Primary Routine general medical examination at a [facility] care [facility] Iron deficiency Disorders of iron metabolism Attention [...] Primary Routine general medical examination at a [facility] Attention deficit hyperactivity disorder (ADHD), predominantly inattentive type Therapeutic drug monitoring Encounter for therapeutic drug monitoring Screening mammogram for breast cancer Morbid obesity with BMI of 40.0-44.9, adult (HCC) Dyslipidemia, goal LDL below 100 Attention deficit hyperactivity disorder (ADHD), predominantly inattentive type- Primary Depression, unspecified depression type Well adult exam- Primary Routine general medical examination at a [facility] Screening mammogram for breast cancer Attention deficit hyperactivity disorder (ADHD), predominantly inattentive type [facility]* Diagnosis Encounter for well adult exam without abnormal findings- Primary Attention deficit hyperactivity disorder (ADHD), unspecified ADHD type Attention deficit hyperactivity disorder (ADHD), unspecified ADHD type Attention deficit hyperactivity disorder (ADHD), unspecified ADHD type Attention deficit hyperactivity disorder (ADHD), 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), unspecified ADHD type Well adult exam- Primary Routine general medical examination at a [facility] care [facility] Attention deficit hyperactivity disorder (ADHD), unspecified ADHD [...] Primary Routine general medical examination at a [facility] care [facility] Attention deficit hyperactivity disorder (ADHD), 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), predominantly inattentive type ANISH (generalized anxiety disorder) Generalized anxiety disorder Depression, unspecified depression type- Primary Attention deficit hyperactivity disorder (ADHD), predominantly inattentive type Intractable migraine with aura without status migrainosus Screening mammogram for breast cancer Well adult exam- Primary Routine general medical examination at a [facility] Intractable migraine with aura without status [...] exam Routine general medical examination at a [facility] Attention deficit hyperactivity disorder (ADHD), predominantly inattentive type Mood disorder Unspecified episodic mood disorder Attention deficit hyperactivity disorder (ADHD), predominantly inattentive type Vitamin D deficiency Intractable migraine with aura without status migrainosus Well adult exam- Primary Routine general medical examination at a [facility] Iron deficiency Disorders of iron metabolism [...] Primary Routine general medical examination at a [facility] Attention deficit hyperactivity disorder (ADHD), predominantly inattentive type Therapeutic drug monitoring Encounter for therapeutic drug monitoring Screening mammogram for breast cancer Morbid obesity with BMI of 40.0-44.9, adult (HCC) Dyslipidemia, goal LDL below 100 Attention deficit hyperactivity disorder (ADHD), predominantly inattentive type- Primary Depression, unspecified depression type Well adult exam- Primary Routine general medical examination at [facility] Screening mammogram for breast cancer Attention deficit hyperactivity disorder (ADHD), predominantly inattentive type Intractable migraine with aura without status migrainosus [facility] instructions Additional Instructions Follow-up with your doctor in the outpatient setting. Return with worsening symptoms or concerns. Your cardiac workup did not show any acute findings your EKG was normal your chest x-ray did not show any acute findings either. Return with worsening symptoms or any other concerns.[facility] Work Phone: Instructions* Attachments The following attachments cannot be sent through Care Everywhere. * ADHD: Adults: General Info (Syrian) * Depression: Chronic Disease (Syrian) * Migraine Headache (Syrian) documented in this encounterOhioHealthInstructions* Attachments The following attachments cannot be sent through Care Everywhere. * ADHD: Adults: General Info (Syrian) documented in this encounterOhioHealthInstructions* Attachments The following attachments cannot be sent through Care Everywhere. * Well Visit: 18 to 65 Years (Syrian) * ADHD: Adults: General Info (Syrian) documented in this encounterOhioHealthInstructions* Attachments The following attachments cannot be sent through Care Everywhere. * Depression: Chronic Disease (Syrian) * Vitamin D: General Info (Syrian) * ADHD: Adults: General Info (Syrian) documented in this encounterOhioHealthInstructions* Attachments The following attachments cannot be sent through Care Everywhere. * Migraine Headache (Syrian) * Depression: Chronic Disease (Syrian) * ADHD: Adults: General Info (Syrian) documented in this encounterOhioHealthInstructions* Attachments The following attachments cannot be sent through Care Everywhere. * Well Visit: 18 to 65 Years (Syrian) * ADHD: Adults: General Info (Syrian) documented in this encounterOhioHealthInstructions* Attachments The following attachments cannot be sent through Care Everywhere. * ADHD: Adults: General Info (Syrian) * Depression: Treatment (Syrian) documented in this encounterOhioHealthInstructions* Attachments The following attachments cannot be sent through Care Everywhere. * Well Visit: 18 to 65 Years (Syrian) documented in this encounterOhioHealthProgress note Author Kevin Brand [facility] Note Date/Time March 23, 2025 11 :15am [facility] [address] [place] [address] OFFICE VISIT Date of Service: 03/23/25 MR#: [id number] Acct: [id number] Patient: FRIDA WIN Rep #: [id number] : 1980 Provider: MARTHA Arnold Age/Sex: 44/F Location: [facility] [place] Status: Signed Intake Vital Signs 12/08/24 07:11 Height 5 ft 3 in Intake Visit Reasons: COVID TEST Chief Complaint: Back pain Allergies amoxicillin (From Augmentin) Allergy (Verified 01/29/25 15:13) Shortness of breath clavulanic acid (From Augmentin) Allergy (Verified 01/29/25 15:13) Shortness of breath Nurse's Note: Patient is here for a COVid test. Results POC TAYLOR Covid FluAB PCR POC Taylor Covid PCR Not Detected Last Edit by Ayaka Hopkins MA on 03/23/25 10:55 POC TAYLOR FLU NOT DETECTED FLU A&B Last Edit by Ayaka Hopkins MA on 03/23/25 10:55 Assessment and Plan Assessment and Plan Orders: Orders POC Taylor Covid FLUAB PCR Today Plan Details Goals & Barriers: Goals Decrease spasm Improve alignment Decrease pain Improve LOPEZ 03/23/25 1115 <Electronically signed by Kevin THOMAS> Date _ Kevin THOMAS Cosigner Signature: Date (if applicable) CC: ~ [facility] Work Phone: Reason for referral (narrative)No reason for referral information availableWWright-[facility] Work Phone: Summary Purpose Family History Relationship [...] Documents on File Type Date Recorded Patient Technology Coordinator Expl anation Advance Directives and Living Will Documents on File Type Date Recorded Patient Technology Coordinator Expl anation Advance Directives and Livin g Will 10/03/2019 8:18 AM Advance Directive Response Recorded Date/ Time Living Will No June 26 1:24pm Power of Pbx Manager No June 26 1:24pm Advance Directive Response Recorded Date/ Time Living Will No June 26 12:24pm Power of Pbx Manager No June 26 12:24pm Advance Directive Response Recorded Date/ Time Do you have a Healthcare Power of Pbx Manager? No December 08, 2024 8:04am Instructions * Patient Instructions* Barbara Castillo Romario, GEOGRAPHY TEACHER - 08/09/2018 8:51 AM EST Problem List [...] is very common. 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 Many adults don't realize they have it [...] Log into your personal health record on [email or web address] and enter B196 in the Education box to learn more about Attention Deficit Hyperactivity Disorder (ADHD) in Adults: Care Instructions. Current as of: February 26, 2018 Content Version: 11.9 0699-7356 [employer]. Care instructions adapted under license by your healthcare professional. If you have questions about a medical condition or this instruction, always ask your healthcare professional. [employer] disclaims any warranty or liability for your [...] is very common. 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 Many adults don't realize they have it [...] Log into your personal health record on [email or web address] and enter B196 in the Education box to learn more about Attention Deficit Hyperactivity Disorder (ADHD) in Adults: Care Instructions. Current as of: February 26, 2018 Content Version: 11.9 6310-0823 [employer]. Care instructions adapted under license by your healthcare professional. If you have questions about a medical condition or this instruction, always ask your healthcare professional. [employer] disclaims any warranty or liability for your [...] is very common. 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 Many adults don't realize they have it [...] Log into your personal health record on [email or web address] and enter B196 in the Education box to learn more about Attention Deficit Hyperactivity Disorder (ADHD) in Adults: Care Instructions. Current as of: February 26, 2018 Content Version: 12.0 1557-2122 [employer]. Care instructions adapted under license by your healthcare professional. If you have questions about a medical condition or this instruction, always ask your healthcare professional. [employer] disclaims any warranty or liability for your [...] is very common. 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 Many adults don't realize they have it [...] Log into your personal health record on [email or web address] and enter B196 in the Education box to learn more about Attention Deficit Hyperactivity Disorder (ADHD) in Adults: Care Instructions. Current as of: February 26, 2018 Content Version: 12.20054774-8441 [employer]. Care instructions adapted under license by your healthcare professional. If you have questions about a medical condition or this instruction, always ask your healthcare professional. [employer] disclaims any warranty or liability for your [...] is very common. 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 Many adults don't realize they have it [...] Log into your personal health record on [email or web address] and enter B196 in the Education box to learn more about Attention Deficit Hyperactivity Disorder (ADHD) in Adults: Care Instructions. Current as of: November 12, 2018 Content Version: 12.3 3260-3633 [employer]. Care instructions adapted under license by your healthcare professional. If you have questions about a medical condition or this instruction, always ask your healthcare professional. [employer] disclaims any warranty or liability for your [...] time. I will review your labs via Timely or the office will with your results. [...] is very common. 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 Many adults don't realize they have it [...] Log into your personal health record on [email or web address] and enter B196 in the Education box to learn more about Attention Deficit Hyperactivity Disorder (ADHD) in Adults: Care Instructions. Current as of: July 18, 2019 Content Version: 12.5 [employer]. Care instructions adapted under license by your healthcare professional. If you have questions about a medical condition or this instruction, always ask your healthcare professional. [employer] disclaims any warranty or liability for your use of this information. documented in this encounter* Patient Instructions* Barbara Cruz Romario, GEOGRAPHY TEACHER - 06/01/2020 12:12 PM EST Problem List [...] is very common. 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 Many adults don't realize they have it [...] Log into your personal health record on [email or web address] and enter B196 in the Education box to learn more about Attention Deficit Hyperactivity Disorder (ADHD) in Adults: Care Instructions. Current as of: March 10, 2020 Content Version: 12.7 [employer]. Care instructions adapted under license by your healthcare professional. If you have questions about a medical condition or this instruction, always ask your healthcare professional. [employer] disclaims any warranty or liability for your [...] medicationhas been prescribed by her psychologist in [place] up to this point. She would like to have this office take over her ADHD care so she does not have to drive clear to [place] monthly. ADHD- Symptoms began 20-30 years ago [...] other care provider. Changed by: Barbara Castillo [facility] CONTINUE taking these medications cloNIDine HCl 0.1 MG tablet Commonly known as: CATAPRES Take 1 (one) tablet (0.1 mg total) by mouth nightly as needed . 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 OARRS/Tabatha Report Received and Assessed: 06/20/19 Date controlled [...] this chart may have been created with [employer] voice recognition software. 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 I will review your labs via Timely or the office will with your results. [...] this chart may have been created with [employer] voice recognition software. Occasional wrong-word or sound-like [...] covid. 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 Occasional wrong-word or sound-like [...] cancer Procedures Mammography Screening Ortiz Bilateral Mela Walker CNP [address] [place] [address] Referral ID Status Reason Start Date Expiration Date V isits Requested Visits Authorized [id number] Authorized 02/10/2022 02/10/2023 1 1 Referral ID Status Reason Start Date Expiration Date V isits Requested Visits Authorized [id number] Authorized 03/13/2024 03/13/2025 1 1 Chief Complaint and Reason for Visit Chief Complaint [facility] SNF-COVID 19 REQ UIRED TESTING [facility] SNF-COVID 19 REQUIRED TESTING [facility] SNF-COVID 19 REQUIRED TESTING Chief Complaint [facility] SNF-COVID 19 REQ UIRED TESTING [facility] SNF-COVID 19 REQUIRED TESTING Chief Complaint SCREENING [...] Back pain Chief Complaint Admit Date 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* October 14, 2024 3:02pm DIZZINESS December 08, 2024 7:11 am Reason for Visit Admit Date Women's annual routine gynecological exa mination October 14, 2024 3:02pm Chief Complaint Admit Date 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* October 14, 2024 3:02pm DIZZINESS December 08, 2024 7:11 am EMPLOYEE LABS January 23, 2025 6:3 4am Chief Complaint Admit Date 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* October 14, 2024 3:02pm DIZZINESS December 08, 2024 7:11 am EMPLOYEE LABS January 23, 2025 6:3 4am REEVAL January 29, 2025 2: 55pm Reason for Visit Admit Date Women's annual routine gynecological exa mination October 14, 2024 3:02pm Segmental and somatic dysfunction of cer vical region January 29, 2025 2:55pm Segmental and somatic dysfunction of lum bar region January 29, 2025 2:55pm Segmental and somatic dysfunction of pel jr region January 29, 2025 2:55pm Segmental and somatic dysfunction of tho racic region January 29, 2025 2:55pm Chief Complaint Admit Date DIZZINESS December 08, 2024 7:11 am EMPLOYEE LABS January 23, 2025 6:3 4am REEVAL January 29, 2025 2: 55pm COVID TEST March 23, 2025 10 :18am Reason for Visit Admit Date Cervicogenic headache January 29, 2025 2:55pm Segmental and somatic dysfunction of cer vical region January 29, 2025 2:55pm Segmental and somatic dysfunction of lum bar region January 29, 2025 2:55pm Segmental and somatic dysfunction of pel jr region January 29, 2025 2:55pm Segmental and somatic dysfunction of tho racic region January 29, 2025 2:55pm Additional Source Comments INFORMATION SOURCE (unrecogn ized section and content) DATE CREATED AUTHOR 02/16/2018 [facility] DATE CREATED AUTHOR AUTHOR'S ORGANIZ ATION 11/20/2018 [facility] DATE CREATED AUTHOR AUTHOR'S ORGANIZ ATION 10/28/2021 [facility] DATE CREATED AUTHOR AUTHOR'S ORGANIZ ATION 03/20/2025 [facility] DATE CREATED AUTHOR AUTHOR'S ORGANIZ ATION 04/03/2025 [facility] Reason for Visit (unrecogniz ed section and [...] Reason Onset Date Comments Medication Refill 01/08/2025 Reason Onset Date Comments Medication Refill 02/02/2025 Reason Onset Date Comments Medication Refill 02/05/2025 Reason Onset Date Comments Medication Refill 03/09/2025 Reason Comments Annual Exam Right arm pain vandana nues an tongue dry and cracking Reason Onset Date Comments Medication Refill 04/15/2025 Assessment & Plan Note - Barbara Castillo [...] time. I will review your labs via Timely or the office will with your results. [...] consent of such client. Section Author: Jazmine Cehn PROHIBITION ON REDISCLOSURE OF CONFIDENTIAL INFORMATION This notice accompanies a disclosure of information concerning a client made to you with the consent of such client. Care Teams (unrecognized sec tion and content) Team Status: Inactive Member Role Status Dates Dr. Priyanka Leonardo DC Attending Provider Active Team Status: Inactive Member [...] Assessment Attending Provider, Referring P angelica Active Internet Media Planner Relationship Specialty Start Date End Date Mela Walker, GEOGRAPHY TEACHER [address] [place] [address], [place] [address] PCP - General Nurse Practitioner 08/11/20 Internet Media Planner Relationship Specialty Start Date End Date Mela Walker, GEOGRAPHY TEACHER [address] [place] [address], [place] [address] PCP - General Nurse Practitioner 08/11/20 Mela Walker, GEOGRAPHY TEACHER [address] [place] [address] PCP - BALDEV Attributed Provider - MMO Commercial 07/19/19 06/17/50 Internet Media Planner Relationship Specialty Start Date End Date Mela Walker, GEOGRAPHY TEACHER [address] [place] [address] PCP - General Nurse Practitioner 08/11/20 Mela Walker, GEOGRAPHY TEACHER [address] [place] [address], [place] [address] PCP - BALDEV Attributed Provider - MMO Commercial 07/19/19 06/17/50 Internet Media Planner Relationship Specialty Start Date End Date Mela Walker, GEOGRAPHY TEACHER [address] [place] [address] PCP - General Nurse Practitioner 08/11/20 Mela Walker, GEOGRAPHY TEACHER [address] [place] [address], [place] [address] PCP - BALDEV Attributed Provider - MMO Commercial 07/19/19 06/17/50 Internet Media Planner Relationship Specialty Start Date End Date Mela Walker, GEOGRAPHY TEACHER [address] [place] [address], [place] [address] PCP - General Nurse Practitioner 08/11/20 Mela Walker, GEOGRAPHY TEACHER [address] [place] [address], [place] [address] PCP - BALDEV Attributed Provider - MMO Commercial 07/19/19 06/17/50 Internet Media Planner Relationship Specialty Start Date End Date Mela Walker GEOGRAPHY TEACHER [address] [place] [address] PCP - General Nurse Practitioner 08/11/20 Mela Walker CNP [address] [place] [address] PCP - BALDEV Attributed Provider - MMO Commercial 07/19/19 06/17/50 Team Status: Active Member Role Status Dates MELA WALKER Primary Care Provider Active Team Status: Inactive Member Role Status Dates DENISE CANO Primary Care Provider Active Dr. Karlo Good MD Attending Provider Active Internet Media Planner Relationship Specialty Start Date End Date Mela Walker CNP [address] [place] [address] PCP - General Nurse Practitioner 08/11/20 Mela Walker GEOGRAPHY TEACHER [address] [place] [address], [place] [address] PCP - BALDEV Attributed Provider - MMO Commercial 07/19/19 06/17/50 Internet Media Planner Relationship Specialty Start Date End Date Mela Walker CNP [address] [place] [address], [place] [address] PCP - General Nurse Practitioner 08/11/20 Internet Media Planner Relationship Specialty Start Date End Date Mela Walker CNP [address] [place] [address], [place] [address] PCP - General Nurse Practitioner 08/11/20 Internet Media Planner Relationship Specialty Start Date End Date Mela Walker CNP [address] [place] [address], [place] [address] PCP - General Nurse Practitioner 08/11/20 Internet Media Planner Relationship Specialty Start Date End Date Mela Walker, MARYA [address] [place] [address], [place] [address] PCP - General Nurse Practitioner 08/11/20 Internet Media Planner Relationship Specialty Start Date End Date Mela Walker, GEOGRAPHY TEACHER [address] [place] [address], [place] [address] PCP - General Nurse Practitioner 08/11/20 Internet Media Planner Relationship Specialty Start Date End Date Mela Walker, GEOGRAPHY TEACHER [address] [place] [address], [place] [address] PCP - General Nurse Practitioner 08/11/20 Internet Media Planner Relationship Specialty Start Date End Date Mela Walker, MARYA [address] [place] [address], [place] [address] PCP - General Nurse Practitioner 08/11/20 Internet Media Planner Relationship Specialty Start Date End Date Mela Walker, GEOGRAPHY TEACHER [address] [place] [address], [place] [address] PCP - General Nurse Practitioner 08/11/20 Internet Media Planner Relationship Specialty Start Date End Date Mela Walker, GEOGRAPHY TEACHER [address] [place] [address], [place] [address] PCP - General Nurse Practitioner 08/11/20 Internet Media Planner Relationship Specialty Start Date End Date Mela Walker MARYA [address] [place] [address], [place] [address] PCP - General Nurse Practitioner 08/11/20 Internet Media Planner Relationship Specialty Start Date End Date Mela Walker CNP [address] [place] [address], [place] [address] PCP - General Nurse Practitioner 08/11/20 Internet Media Planner Relationship Specialty Start Date End Date Mela Walker CNP [address] [place] [address], [place] [address] PCP - General Nurse Practitioner 08/11/20 Team [...] December 08, 2024 End: December 08, 2024 Internet Media Planner Relationship Specialty Start Date End Date Mela Walker CNP [facility] [address] [place] [address], [place] [address] PCP - General Nurse Practitioner 08/11/20 Team Status: Active Member Role/Relationship Status Dates FILIBERTO Cooper Primary Care Provider Active Team Status: Inactive Member Role/Relationship Status Dates Mela Walker , BRUSH WASHER-C Primary Care Provider Active Start: October 14, 2024 End: October 14, 2024 Mela Walker NP-C Referring Provider Active St art: October 14, 2024 End: October 14, 2024 RYAN BradshawC Attending Provider Active Start: October 14, 2024 End: October 14, 2024 Team Status: Inactive Member Role/Relationship Status Dates Mela Walker BRUSH WASHER-C Primary Care Provider Active Start: December 08, 2024 End: December 08, 2024 Dr. Deonte Beckett , Attending Provider Active Start: December 08, 2024 End: December 08, 2024 Dr. Deonte Beckett , Emergency Provider Active Start: December 08, 2024 End: December 08, 2024 Team Status: Inactive Member Role/Relationship Status Dates Mela Walker BRUSH WASHER-C Primary Care Provider Active Start: January 12, 2025 End: January 12, 2025 RYAN CooperC Attending Provider Active St art: January 12, 2025 End: January 12, 2025 Mela Walker BRUSH WASHER-C Referring Provider Active St art: January 12, 2025 End: January 12, 2025 Team Status: Inactive Member Role/Relationship Status Dates Mela Walker BRUSH WASHER-C Primary Care Provider Active Start: January 23, 2025 End: January 23, 2025 MARTHA Iqbal Attending Provider Active Sta rt: January 23, 2025 End: January 23, 2025 MARTHA Iqbal Referring Provider Active Sta rt: January 23, 2025 End: January 23, 2025 Team Status: Active Member Role/Relationship Status Dates Mela Walker NP-C Primary Care Provider Active Start: January 23, 2025 Health Risk Assessment Attending Provider Active Start: January 23, 2025 Health Risk Assessment Referring Provider Active Start: January 23, 2025 Team Status: Inactive Member Role/Relationship Status Dates Mela Walker BRUSH WASHER-C Primary Care Provider Active Start: January 29, 2025 End: January 29, 2025 Mela Walker BRUSH WASHER-C Referring Provider Active St art: January 29, 2025 End: January 29, 2025 Dr. Priyanka Leonardo , SHEYLA Attending Provider Active S tart: January 29, 2025 End: January 29, 2025 Internet Media Planner Relationship Specialty Start Date End Date Mela Walker CNP [address] [place] [address], [place] [address] PCP - General Nurse Practitioner 08/11/20 Internet Media Planner Relationship Specialty Start Date End Date Mela Walker CNP [address] [place] [address], [place] [address] PCP - General Nurse Practitioner 08/11/20 Internet Media Planner Relationship Specialty Start Date End Date Mela Walker CNP [address] [place] [address], [place] [address] PCP - General Nurse Practitioner 08/11/20 Internet Media Planner Relationship Specialty Start Date End Date Mela Walker CNP [address] [place] [address], [place] [address] PCP - General Nurse Practitioner 08/11/20 Team Status: Active Member Role/Relationship Status Dates FILIBERTO Cooper Primary care physician Active Team Status: Inactive Member Role/Relationship Status Dates FILIBERTO Cooper Primary care physician Active Start: December 08, 2024 End: December 08, 2024 Dr. Deonte Beckett , Attending physician Active Start: December 08, 2024 End: December 08, 2024 Dr. Deonte Beckett DO Emergency Department Physician A ctive Start: December 08, 2024 End: December 08, 2024 Team Status: Inactive Member Role/Relationship Status Dates FILIBERTO Cooper Primary care physician Active Start: January 12, 2025 End: January 12, 2025 FILIBERTO Cooper Attending physician Active S tart: January 12, 2025 End: January 12, 2025 FILIBERTO Cooper Referring Provider Active St art: January 12, 2025 End: January 12, 2025 Team Status: Inactive Member Role/Relationship Status Dates FILIBERTO Cooper Primary care physician Active Start: January 23, 2025 End: January 23, 2025 MARTHA Iqbal Attending physician Active St art: January 23, 2025 End: January 23, 2025 MARTHA Iqbal Referring Provider Active Sta rt: January 23, 2025 End: January 23, 2025 Team Status: Active Member Role/Relationship Status Dates FILIBERTO Cooper Primary care physician Active Start: January 23, 2025 Health Risk Assessment Attending physician Active Start: January 23, 2025 Health Risk Assessment Referring Provider Active Start: January 23, 2025 Team Status: Inactive Member Role/Relationship Status Dates FILIBERTO Cooper Primary care physician Active Start: January 29, 2025 End: January 29, 2025 FILIBERTO Cooper Referring Provider Active St art: January 29, 2025 End: January 29, 2025 Dr. Priyanka Leonardo , SHEYLA Attending physician Active Start: January 29, 2025 End: January 29, 2025 Team Status: Inactive Member Role/Relationship Status Dates FILIBERTO Cooper Primary care physician Active Start: March 23, 2025 End: March 23, 2025 FILIBERTO Cooper Referring Provider Active St art: March 23, 2025 End: March 23, 2025 MARTHA Barnett Attending physician Active Start: March 23, 2025 End: March 23, 2025 [employer] Relationship Specialty Start Date End Date Mela Walker CNP [address] [place] [id number] PCP - General Nurse Practitioner 08/11/20 Goals [...] BE BASED ON THE PRIMARY CLINICAL RECORDS. [facility]. provides no warranty or guarantee of the accuracy or completeness of information in this document.
== END | disposition home or self-care (01) ==
LOC: OPBI 07:16
PROVIDERS: PCP Nurse Practitioner Family; Referring Provider Nurse Practitioner Family; Visit Provider Nurse Practitioner Family
DX: Z12.31 Encounter for screening mammogram for malignant neoplasm of breast (principal)
CPT/HCPCS: 77063; 77067

== ENCOUNTER → 2025-06-12 | Outpatient (CLI) | payer OTHER, SELFPAY ==
--- OUTSIDE RECORDS SUMMARY | 2025-06-12 06:13 | XMS RPT_ITS | CCD ---
Author Organization [facility] Care Team Providers Care Shot Blaster Name Role Phone Unavailable Unavailable Unavailable Abisai Wyman Unavailable Unavailable Abisai Wyman Unavailable Unavailable Barbara Castillo Primary Care Provider [phone] Barbara Cruz Primary Care Provider [phone] BARBARA CRUZ Admitting Unavailable BARBARA CRUZ Primary Care Unavailable Barbara Cruz Primary Care Provider [phone] Required, No Pcp Unavailable Unavailable Jenny Giang Unavailable Unavailable Walker QUALITY CONTROL INSPECTOR, Mela Lima Primary Care Provider Walker QUALITY CONTROL INSPECTOR, Mela Lima Primary Care Provider [phone] Walker QUALITY CONTROL INSPECTOR, Mela Lima Unavailable Walker QUALITY CONTROL INSPECTOR, Mela Lima Unavailable Deonte Dsouza Unavailable Mario LEAF SIZE PICKER-C Bethanie Attending Provider [phone] Dr. Alejandro Sandhu Attending Provider Walker QUALITY CONTROL INSPECTOR, Mela Lima Primary Care Provider Walker QUALITY CONTROL INSPECTOR, Mela Lima Unavailable Walker QUALITY CONTROL INSPECTOR, Mela Lima Primary Care Provider Dr. Priyanka Leonardo Attending Provider [phone] Dr. Priyanka Leonardo Attending Provider [phone] Walker QUALITY CONTROL INSPECTOR, Mela Lima Primary Care Provider [phone] Denise LEAF SIZE PICKER-C, Mela Primary Care Provider [phone] Denise LEAF SIZE PICKER-C, Mela Referring Provider Krys LEAF SIZE PICKER-CUyen Attending Provider [phone] Dr. Doente Beckett DO Emergency Provider Dr. Deonte Beckett DO Attending Provider Denise LEAF SIZE PICKER-C, Mela Attending Provider [phone] Kirk Cuellar Attending Provider Kirk Cuellar Referring Provider [phone] Assessment, Health Risk Attending Provider Unava ilable Assessment, Health Risk Referring Provider Unava ilable Dossi SHEYLA, Dr. Mathew Attending Provider [phone] WALKER, MELA LIMA Attending Unavailable WALKER, MELA [...] WALKER, MELA LIMA Primary Care Unavailable Walker LEAF SIZE PICKER-C, Mela Primary Care Physician Dr. Deonte Beckett DO Attending Physician Dr. Deonte Beckett DO Emergency Department Physic thanh Walker LEAF SIZE PICKER-C, Mela Attending Physician Walker LEAF SIZE PICKER-C, Mela Referring Provider Kirk Cuellar Attending Physician [phone] Assessment, Health Risk Attending Physician Unav ailable Dossi DC, Dr. Mathew Attending Physician [phone] Kevin Bose Attending Physician Walker, Mela Referring [...] Amoxicillin / Clavulanate Drug Allergy 9 Hives [facility] Work Phone: Clavulanate (1 source) Clavulanate Drug Allergy 0 [facility] Penicillins (antibiotic) (1 source) Penicillins Drug Allergy 5 [facility] (20 sources) Amoxicillin / Clavulanate; Translations: [Unknown] Drug Allergy 9 Hives, Anaphylaxis [facility] (20 sources) Clavulanate; Translations: [CLAVULANIC ACID] Drug Allergy 0 Shortness of breath [facility] (20 sources) Penicillins; Translations: [PENICILLINS] Propensity to adverse reactions to drug 5 [facility] (1 source) Amoxicillin / Clavulanate Drug Allergy Anaphylaxis [facility] (15 sources) Amoxicillin Drug Allergy 2 Shortness of breath [facility] (1 source) Amoxicillin Drug Allergy 5 [facility] Repository (1 source) Clavulanate Drug Allergy 5 [facility] Repository Medications Current Medications Medication Drug Class(es) [...] Office Visit Reporton 2024 Office Visit Report [facility] [address] [place] [address] OFFICE VISIT Date of Service: 03/23/25 MR#: [id number] Acct: [id number] Patient: FRIDA WIN Rep #: [id number] : 1980 Provider: MARTHA Arnold Age/Sex: 44/F Location: [facility] Status: Signed with Addenda ADDENDUM by CEDRIC [...] Wilder Signature: Date (if applicable) CC: Normal [facility] Chiropractic Reporton 2024 Chiropractic Report [facility] [place] [address] OFFICE VISIT Date of Service: 01/29/25 MR#: [id number] Acct: [id number] Name: FRIDA WIN Rep #: [id number] : 1980 Provider: SHEYLA Lopez Age/Sex: 44/F Location: 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 Normal [facility] Quantiferon TB-Gold+on 01-27 QFT MITOGEN JAY > 10.00 Normal . [facility] Comment on above: Performed By: #### L 3100.5475, L100.0100, L501.6710, L505.7010, L101.9900, L4600.0100, L501.1400 #### [facility] [address] [place], [address] QFT NIL VALUE 0.03 IU/mL Normal . [facility] Comment on above: Performed By: #### L 3100.5475, L100.0100, L501.6710, L505.7010, L101.9900, L4600.0100, L501.1400 #### [facility] [address] [place], [address] QFT TB GOLD+ Comment Normal . [facility] Comment on above: Result Comment: Dwight tiFERON-TB [...] L100.0100, L501.6710, L505.7010, L101.9900, L4600.0100, L501.1400 #### [facility] [address] [place], [address] QFT TB POS CRIT Negative Normal Negative [facility] Comment on above: Result Comment: No r [...] interferon gamma. Chemiluminescence immunoassay methodology Performed at: [facility] [address] [id number] Documentation Lead: Graham Kinney PhD, Phone: [phone] Performed By: #### L 3100.5475, L100.0100, L501.6710, L505.7010, L101.9900, L4600.0100, L501.1400 #### [facility] [address] [place], [place], [address] QFT TB1+ AG JAY 0.03 IU/mL Normal . [facility] Comment on above: Performed By: #### L 3100.5475, L100.0100, L501.6710, L505.7010, L101.9900, L4600.0100, L501.1400 #### [facility] [address] [place], [place], [address] QFT TB2+ AG JAY 0.04 IU/mL Normal . [facility] Comment on above: Performed By: #### L 3100.5475, L100.0100, L501.6710, L505.7010, L101.9900, L4600.0100, L501.1400 #### [facility] [address] [place], [place], [id number] Absolute lymphocyte countOrd ered By: HEALTH ASSESSMENT on 01-23-2025 Lymphocytes Auto (Unsp spec) [#/Vol] 1.72 10*3/uL 0.83-4.51 [facility] Absolute neutrophil countOrd ered By: HEALTH ASSESSMENT on 01-23-2025 Neutrophils (Bld) [#/Vol] 5.2 10*3/uL 2.0-7.7 [facility] Absolute nucleated red blood cell countOrdered By: HEALTH ASSESSMENT on 01-23-2025 Nucleated RBC (Bld) [#/Vol] 0.00 10*3/uL 0-5 [facility] Anion gap in Serum or Plasma Ordered By: HEALTH ASSESSMENT on 01-23-2025 Anion gap [Moles/Vol] 11 mmol/L 5-15 [facility] BUN/creatinine ratioOrdered By: HEALTH ASSESSMENT on 01-23-2025 Urea nitrogen/Creatinine [Mass ratio] 24.8 mg/mg High 10- [facility] Bilirubin directOrdered By: HEALTH ASSESSMENT on 01-23-2025 Bilirubin.direct [Mass/Vol] 0.11 mg/dL 0.00-0.30 [facility] Bilirubin, totalOrdered By: HEALTH ASSESSMENT on 01-23-2025 Bilirubin [Mass/Vol] 0.24 mg/dL 0.00-1.30 [facility] Blood band neutrophil count as percentage of total leukocytesOrdered By: HEALTH ASSESSMENT on 01-23-2025 Band form neutrophils/100 WBC (Bld) 69.0 % 47-70 [facility] CBC, Employeeon 01-23-2025 Absolute Lymph 1.72 X10 3/uL Normal 0.83-4.51 [facility] Comment on above: Performed By: #### L 3100.5475, L100.0100, L501.6710, L505.7010, L101.9900, L4600.0100, L501.1400 #### [facility] [address] [place], [address] Absolute Neut 5.2 X10 3/uL Normal 2.0-7.7 [facility] Comment on above: Performed By: #### L 3100.5475, L100.0100, L501.6710, L505.7010, L101.9900, L4600.0100, L501.1400 #### [facility] [address] [place], [address] Basophils/100 WBC (Bld) 0.8 % Normal 0-1 [facility] Comment on above: Performed By: #### L 3100.5475, L100.0100, L501.6710, L505.7010, L101.9900, L4600.0100, L501.1400 #### [facility] [address] [place], [address] Eosinophils/100 WBC (Bld) 1.7 % Normal 0-5 [facility] Comment on above: Performed By: #### L 3100.5475, L100.0100, L501.6710, L505.7010, L101.9900, L4600.0100, L501.1400 #### [facility] [address] [place], [address] Erythrocyte distribution width (RBC) [Ratio] 14.9 % High 11.6-14.6 [facility] Comment on above: Performed By: #### L 3100.5475, L100.0100, L501.6710, L505.7010, L101.9900, L4600.0100, L501.1400 #### [facility] [address] [place], [address] Hematocrit (Bld) [Volume fraction] 43.7 % Normal 37-47 [facility] Comment on above: Performed By: #### L 3100.5475, L100.0100, L501.6710, L505.7010, L101.9900, L4600.0100, L501.1400 #### [facility] [address] [place], [address] Hemoglobin (Bld) [Mass/Vol] 13.8 g/dL Normal 12.0-15.0 [facility] Comment on above: Performed By: #### L 3100.5475, L100.0100, L501.6710, L505.7010, L101.9900, L4600.0100, L501.1400 #### [facility] [address] [place], [address] Lymphocytes/100 WBC (Bld) 22.7 % Normal 19-41 [facility] Comment on above: Performed By: #### L 3100.5475, L100.0100, L501.6710, L505.7010, L101.9900, L4600.0100, L501.1400 #### [facility] [address] [place], [address] MCH (RBC) [Entitic mass] 25.4 pg Low 27.0-32.0 [facility] Comment on above: Performed By: #### L 3100.5475, L100.0100, L501.6710, L505.7010, L101.9900, L4600.0100, L501.1400 #### [facility] [address] [place], [address] MCHC (RBC) [Mass/Vol] 31.6 g/dL Low 32-36 [facility] Comment on above: Performed By: #### L 3100.5475, L100.0100, L501.6710, L505.7010, L101.9900, L4600.0100, L501.1400 #### [facility] [address] [place], [address] MCV (RBC) [Entitic vol] 80.5 fL Low 81-99 [facility] Comment on above: Performed By: #### L 3100.5475, L100.0100, L501.6710, L505.7010, L101.9900, L4600.0100, L501.1400 #### [facility] [address] [place], [address] Monocytes/100 WBC (Bld) 5.4 % Normal 0-10 [facility] Comment on above: Performed By: #### L 3100.5475, L100.0100, L501.6710, L505.7010, L101.9900, L4600.0100, L501.1400 #### [facility] [address] [place], [address] Neutrophils/100 WBC (Bld) 69.0 % Normal 47-70 [facility] Comment on above: Performed By: #### L 3100.5475, L100.0100, L501.6710, L505.7010, L101.9900, L4600.0100, L501.1400 #### [facility] [address] [place], [address] NRBC # 0.00 10 3/uL Normal 0-5 [facility] Comment on above: Performed By: #### L 3100.5475, L100.0100, L501.6710, L505.7010, L101.9900, L4600.0100, L501.1400 #### [facility] [address] [place], [address] Nucleated RBC (Bld) [#/Vol] 0 10*3/uL Normal 0-5 [facility] Comment on above: Performed By: #### L 3100.5475, L100.0100, L501.6710, L505.7010, L101.9900, L4600.0100, L501.1400 #### [facility] [address] [place], [address] Platelet mean volume (Bld) [Entitic vol] 9.5 fL Normal 6.2-12.0 [facility] Comment on above: Performed By: #### L 3100.5475, L100.0100, L501.6710, L505.7010, L101.9900, L4600.0100, L501.1400 #### [facility] [address] [place], [address] Platelets (Bld) [#/Vol] 360 10*3/uL Normal 150-450 [facility] Comment on above: Performed By: #### L 3100.5475, L100.0100, L501.6710, L505.7010, L101.9900, L4600.0100, L501.1400 #### [facility] [address] [place], [address] RBC (Bld) [#/Vol] 5.43 10*6/uL High 4.2-5.4 [facility] Comment on above: Performed By: #### L 3100.5475, L100.0100, L501.6710, L505.7010, L101.9900, L4600.0100, L501.1400 #### [facility] [address] [place], [address] RDW SD 43.6 fl Normal 35.1-43.9 [facility] Comment on above: Performed By: #### L 3100.5475, L100.0100, L501.6710, L505.7010, L101.9900, L4600.0100, L501.1400 #### [facility] [address] [place], [place], [address] WBC (Bld) [#/Vol] 7.6 10*3/uL Normal 4.4-11.0 [facility] Comment on above: Performed By: #### L 3100.5475, L100.0100, L501.6710, L505.7010, L101.9900, L4600.0100, L501.1400 #### [facility] [address] [place], [place], [address] Calculated very low density lipoprotein (VLDL) cholesterol measurementOrdered By: HEALTH ASSESSMENT on 01-23-2025 Calculated very low density lipoprotein (VLDL) cholesterol measurement 11 mg/dL 5-40 [facility] Carbon dioxide, total [Moles /volume] in Central venous bloodOrdered By: HEALTH ASSESSMENT on 01-23-2025 CO2 [Moles/Vol] 24.5 mmol/L 21.0-32.0 [facility] Chloride assayOrdered By: HE ALTH ASSESSMENT on 01-23-2025 Chloride [Moles/Vol] 101 mmol/L 98-108 [facility] Employee Profileon 5 LDH 159 U/L Normal 84-246 [facility] Comment on above: Performed By: #### L 3100.5475, L100.0100, L501.6710, L505.7010, L101.9900, L4600.0100, L501.1400 #### [facility] [address] [place], [address] Phosphate [Mass/Vol] 3.1 mg/dL Normal 2.7-4.5 [facility] Comment on above: Performed By: #### L 3100.5475, L100.0100, L501.6710, L505.7010, L101.9900, L4600.0100, L501.1400 #### [facility] [address] [place], [address] URIC 3.2 mg/dL Normal 2.6-6.0 [facility] Comment on above: Result Comment: The drugs N-Acetylcysteine and Metamizole may falsely depress this assay. Performed By: #### L 3100.5475, L100.0100, L501.6710, L505.7010, L101.9900, L4600.0100, L501.1400 #### [facility] [address] [place], [address] Erythrocyte distribution wid th ratioOrdered By: HEALTH ASSESSMENT on 01-23-2025 Erythrocyte distribution width (RBC) [Ratio] 14.9 % High 11.6-14.6 [facility] Erythrocyte distribution wid th standard deviationOrdered By: HEALTH ASSESSMENT on 01-23-2025 Erythrocyte distribution width (RBC) [Ratio] 43.6 fl 35.1-43.9 [facility] Glomerular filtration rate ( GFR) estimation/1.73 sq m using serum, plasma, or whole bOrdered By: HEALTH ASSESSMENT on 01-23-2025 GFR/1.73 sq M.predicted among non-blacks MDRD (S/P/Bld) [Vol rate/Area] 113 mL/min/{1.73_m2} >60 [facility] Comment on above: mL/min/1.73m2 CKD-EP I Creatinine Equation (2020) Hematocrit Auto (Bld) [Volum e fraction]Ordered By: HEALTH ASSESSMENT on 01-23-2025 Hematocrit (Bld) [Volume fraction] 43.7 % 37-47 [facility] Hemoglobin measurementOrdere d By: HEALTH ASSESSMENT on 01-23-2025 Hemoglobin (Bld) [Mass/Vol] 13.8 g/dL 12.0-15.0 [facility] LDL calc ser/plasOrdered By: HEALTH ASSESSMENT on 01-23-2025 Cholesterol in LDL [Mass/Vol] 95 mg/dL [facility] Comment on above: Wuffdeykoe=[phone] m g/dL & Higher Vfph=066 mg/dL or greaterFriedwald Equation for LDL-C Laboratory - Chemistry and C hemistry - challengeOrdered By: HEALTH ASSESSMENT on 01-23-2025 AST [Catalytic activity/Vol] 15 U/L <32 [facility] Lactate dehydrogenase (LDH) measurementOrdered By: HEALTH ASSESSMENT on 01-23-2025 LDH [Catalytic activity/Vol] 159 U/L 84-246 [facility] MCV (mean corpuscular volume ) determinationOrdered By: HEALTH ASSESSMENT on 01-23-2025 MCV (RBC) [Entitic vol] 80.5 fL Low 81-99 [facility] Mean corpuscular hemoglobin (MCH) determinationOrdered By: HEALTH ASSESSMENT on 01-23-2025 MCH (RBC) [Entitic mass] 25.4 pg Low 27.0-32.0 [facility] Mean corpuscular hemoglobin concentration (MCHC) determinationOrdered By: HEALTH ASSESSMENT on 01-23-2025 MCHC (RBC) [Mass/Vol] 31.6 g/dL Low 32-36 [facility] Mean platelet volume determi nationOrdered By: HEALTH ASSESSMENT on 01-23-2025 Platelet mean volume (Bld) [Entitic vol] 9.5 fL 6.2-12.0 [facility] Nucleated red blood cell per centageOrdered By: HEALTH ASSESSMENT on 01-23-2025 Nucleated RBC/100 WBC (Bld) [Ratio] 0 % 0-5 [facility] Platelet countOrdered By: SOL ALTH ASSESSMENT on 01-23-2025 Platelets (Bld) [#/Vol] 360 10*3/uL 150-450 [facility] Potassium measurement (mass/ volume)Ordered By: HEALTH ASSESSMENT on 01-23-2025 Potassium (Unsp spec) [Mass/Vol] 4.5 mmol/L 3.3-5.1 [facility] Qualitative QuantiFERON-TB g old in tube testOrdered By: Kirk Danielson on 01-23-2025 M. tuberculosis tuberculin stim IFN-g Ql (Bld) 0.03 IU/mL . [facility] RBC Auto (Bld) [#/Vol]Ordere d By: HEALTH ASSESSMENT on 01-23-2025 RBC (Bld) [#/Vol] 5.43 10*6/uL High 4.2-5.4 [facility] Screening total cholesterol/ high density lipoprotein (HDL) cholesterol ratioOrdered By: HEALTH ASSESSMENT on 01-23-2025 Cholesterol.total/Karlie sterol in HDL [Mass ratio] 3.02 {ratio} [facility] Serum creatinine measurement (mass/volume)Ordered By: HEALTH ASSESSMENT on 01-23-2025 Creatinine [Mass/Vol] 0.62 mg/dL Low 0.70-1.20 [facility] Serum globulin measurementOr dered By: HEALTH ASSESSMENT on 01-23-2025 Globulin (S) [Mass/Vol] 3.1 g/dL 2.2-4.2 [facility] Serum glucose measurement (m ass/volume)Ordered By: HEALTH ASSESSMENT on 01-23-2025 Glucose [Mass/Vol] 112 mg/dL High 70-99 [facility] Serum or plasma alanine zavala otransferase (ALT) measurementOrdered By: HEALTH ASSESSMENT on 01-23-2025 ALT [Catalytic activity/Vol] 15 U/L <35 [facility] Serum or plasma albumin emanuel urement (mass/volume)Ordered By: HEALTH ASSESSMENT on 01-23-2025 Albumin [Mass/Vol] 4.2 g/dL 3.5-5.0 [facility] Serum or plasma albumin/glob ulin mass ratioOrdered By: HEALTH ASSESSMENT on 01-23-2025 Albumin/Globulin [Mass ratio] 1.3 {ratio} 0.9-2.4 [facility] Serum or plasma alkaline treva sphatase measurementOrdered By: HEALTH ASSESSMENT on 01-23-2025 ALP [Catalytic activity/Vol] 97 U/L 35-104 [facility] Serum or plasma calcium emanuel urement (mass/volume)Ordered By: HEALTH ASSESSMENT on 01-23-2025 Calcium [Mass/Vol] 9.3 mg/dL 7.6-11.0 [facility] Serum or plasma cholesterol in HDL measurement (mass/volume)Ordered By: HEALTH ASSESSMENT on 01-23-2025 Cholesterol in HDL [Mass/Vol] 53 mg/dL >40 [facility] Comment on above: National Cholesterol Education Program (NCEP) guidelines:<40 mg/dL: Low HDL-cholesterol (major risk factor for CHD)>= 60 mg/dL: High HDL-cholesterol (negative risk factor for CHD)HDL-cholesterol is affected by a number of factors, e.g. smoking, exercise, hormones, sex and age. Serum or plasma cholesterol measurement (mass/volume)Ordered By: HEALTH ASSESSMENT on 01-23-2025 Cholesterol [Mass/Vol] 159 mg/dL <201 [facility] Comment on above: Cholesterol level, D esirable <200 mg/dLBorderline high cholesterol 200-239 mg/dLHigh cholesterol >=240 mg/dLRecommendations of the NCEP Adult Treatment Panel for the following risk-cutoff thresholds for the [place] population. Serum or plasma urea nitroge n measurement (mass/volume)Ordered By: HEALTH ASSESSMENT on 01-23-2025 Urea nitrogen [Mass/Vol] 16 mg/dL 4-19 [facility] Serum or plasma uric acid me asurement (mass/volume)Ordered By: HEALTH ASSESSMENT on 01-23-2025 Urate [Mass/Vol] 3.2 mg/dL 2.6-6.0 [facility] Comment on above: The drugs N-Acetylcy steine and Metamizole may falsely depress this assay. Sodium levelOrdered By: HEAL ASSESSMENT on 01-23-2025 Sodium [Moles/Vol] 137 mmol/L 133-145 [facility] Total proteinOrdered By: [facility] ASSESSMENT on 01-23-2025 Protein [Mass/Vol] 7.3 g/dL 5.9-8.4 [facility] Triglycerides measurementOrd ered By: HEALTH ASSESSMENT on 01-23-2025 Triglyceride [Mass/Vol] 57 mg/dL <199 [facility] Comment on above: The drugs N-Acetylcy steine and Metamizole may falsely depress this assay. Normal range: <150 mg/dLBorderline High: 150-199 mg/dLHigh: 200-499 mg/dLVery High: >500 mg/dL Urinalysis, Employeeon 01-23 BILIRUBIN URINE Normal Negative [facility] Comment on above: Order Comment: Urine , Random Result Comment: PT D IDNT WANT UA Performed By: #### L 3100.5475, L100.0100, L501.6710, L505.7010, L101.9900, L4600.0100, L501.1400 #### [facility] [address] [place], [address] Clarity (U) Normal Clear [facility] Comment on above: Order Comment: Urine , Random Result Comment: PT D IDNT WANT UA Performed By: #### L 3100.5475, L100.0100, L501.6710, L505.7010, L101.9900, L4600.0100, L501.1400 #### [facility] [address] [place], [address] Color (U) Normal Yellow [facility] Comment on above: Order Comment: Urine , Random Result Comment: PT D IDNT WANT UA Performed By: #### L 3100.5475, L100.0100, L501.6710, L505.7010, L101.9900, L4600.0100, L501.1400 #### [facility] [address] [place], [address] GLUCOSE, UR Normal Normal [facility] Comment on above: Order Comment: Urine , Random Result Comment: PT D IDNT WANT UA Performed By: #### L 3100.5475, L100.0100, L501.6710, L505.7010, L101.9900, L4600.0100, L501.1400 #### [facility] [address] [place], [address] KETONE UR Normal Negative [facility] Comment on above: Order Comment: Urine , Random Result Comment: PT D IDNT WANT UA Performed By: #### L 3100.5475, L100.0100, L501.6710, L505.7010, L101.9900, L4600.0100, L501.1400 #### [facility] [address] [place], [address] LEUK ESTERASE Normal Negative [facility] Comment on above: Order Comment: Urine , Random Result Comment: PT D IDNT WANT UA Performed By: #### L 3100.5475, L100.0100, L501.6710, L505.7010, L101.9900, L4600.0100, L501.1400 #### [facility] [address] [place], [place], [id number] Nitrite Ql (U) Normal Negative [facility] Comment on above: Order Comment: Urine , Random Result Comment: PT D IDNT WANT UA Performed By: #### L 3100.5475, L100.0100, L501.6710, L505.7010, L101.9900, L4600.0100, L501.1400 #### [facility] [address] [place], [place], [id number] OCCULT BLOOD-UR Normal Negative [facility] Comment on above: Order Comment: Urine , Random Result Comment: PT D IDNT WANT UA Performed By: #### L 3100.5475, L100.0100, L501.6710, L505.7010, L101.9900, L4600.0100, L501.1400 #### [facility] [address] [place], [place], [id number] pH UR Normal 5.0 - 8.0 [facility] Comment on above: Order Comment: Urine , Random Result Comment: PT D IDNT WANT UA Performed By: #### L 3100.5475, L100.0100, L501.6710, L505.7010, L101.9900, L4600.0100, L501.1400 #### [facility] [address] [place], [place], [id number] PROT DIPSTX Normal Negative [facility] Comment on above: Order Comment: Urine , Random Result Comment: PT D IDNT WANT UA Performed By: #### L 3100.5475, L100.0100, L501.6710, L505.7010, L101.9900, L4600.0100, L501.1400 #### [facility] [address] [place], [address] SP.GR. DIPSTX Normal 1.002-1.030 [facility] Comment on above: Order Comment: Urine , Random Result Comment: PT D IDNT WANT UA Performed By: #### L 3100.5475, L100.0100, L501.6710, L505.7010, L101.9900, L4600.0100, L501.1400 #### [facility] [address] [place], [address] UR Preservative Normal [facility] Comment on above: Order Comment: Urine , Random Result Comment: PT D IDNT WANT UA Performed By: #### L 3100.5475, L100.0100, L501.6710, L505.7010, L101.9900, L4600.0100, L501.1400 #### [facility] [address] [place], [address] UROBILI Normal Normal [facility] Comment on above: Order Comment: Urine , Random Result Comment: PT D IDNT WANT UA Performed By: #### L 3100.5475, L100.0100, L501.6710, L505.7010, L101.9900, L4600.0100, L501.1400 #### [facility] [address] [facility] [place], [place], [id number] White blood cell (WBC) count Ordered By: HEALTH ASSESSMENT on 01-23-2025 WBC (Bld) [#/Vol] 7.6 10*3/uL 4.4-11.0 [facility] ANTINUCLEAR ANTIBODIES DIRE Ton 01-13-2025 DENISE,DIRECT Negative Normal Negative [facility] Comment on above: Result Comment: Perf ormed at: [facility] [address] [id number] Documentation Lead: Graham Kinney PhD, Phone: [phone] Performed By: #### L 3100.5475, L100.0100, L501.6710, L505.7010, L101.9900, L4600.0100, L501.1400 #### [facility] [address] [place], [place], [phone] CCP IgG Antibodieson 025 CCP IgG Ab. 4 units Normal 0-19 [facility] Comment on above: Result Comment: Nega tive <20 Weak positive 20 - 39 Moderate positive 40 - 59 Strong positive >59 Performed at: [address] [id number] Documentation Lead: Graham Kinney PhD, Phone: [phone] Performed By: #### L 3100.5475, L100.0100, L501.6710, L505.7010, L101.9900, L4600.0100, L501.1400 #### [facility] [address] [place], [place], [id number] Absolute lymphocyte countOrd ered By: Mela Walker on 01-12-2025 Lymphocytes Auto (Unsp spec) [#/Vol] 2.12 10*3/uL 0.83-4.51 [facility] Absolute neutrophil countOrd ered By: Mela Walker on 01-12-2025 Neutrophils (Bld) [#/Vol] 5.0 10*3/uL 2.0-7.7 [facility] Automated lymphocyte count a s percentage of total leukocytesOrdered By: Mela Walker on 01-12-2025 Lymphocytes/100 WBC Auto (Unsp spec) 27.6 % 19-41 [facility] Basophil percentageOrdered B y: Mela Walker on 01-12-2025 Basophils/100 WBC (Bld) 0.9 % 0-1 [facility] CBC W/Diff, Automatedon 12-17 Absolute Lymph 2.12 X10 3/uL Normal 0.83-4.51 [facility] Comment on above: Performed By: #### L 3100.5475, L100.0100, L501.6710, L505.7010, L101.9900, L4600.0100, L501.1400 #### [facility] [address] [place], [address] Absolute Neut 5.0 X10 3/uL Normal 2.0-7.7 [facility] Comment on above: Performed By: #### L 3100.5475, L100.0100, L501.6710, L505.7010, L101.9900, L4600.0100, L501.1400 #### [facility] [address] [place], [address] Basophils/100 WBC (Bld) 0.9 % Normal 0-1 [facility] Comment on above: Performed By: #### L 3100.5475, L100.0100, L501.6710, L505.7010, L101.9900, L4600.0100, L501.1400 #### [facility] [address] [place], [address] Eosinophils/100 WBC (Bld) 1.8 % Normal 0-5 [facility] Comment on above: Performed By: #### L 3100.5475, L100.0100, L501.6710, L505.7010, L101.9900, L4600.0100, L501.1400 #### [facility] [address] [place], [address] Erythrocyte distribution width (RBC) [Ratio] 14.9 % High 11.6-14.6 [facility] Comment on above: Performed By: #### L 3100.5475, L100.0100, L501.6710, L505.7010, L101.9900, L4600.0100, L501.1400 #### [facility] [address] [place], [address] Hematocrit (Bld) [Volume fraction] 45.6 % Normal 37-47 [facility] Comment on above: Performed By: #### L 3100.5475, L100.0100, L501.6710, L505.7010, L101.9900, L4600.0100, L501.1400 #### [facility] [address] [place], [address] Hemoglobin (Bld) [Mass/Vol] 14.4 g/dL Normal 12.0-15.0 [facility] Comment on above: Performed By: #### L 3100.5475, L100.0100, L501.6710, L505.7010, L101.9900, L4600.0100, L501.1400 #### [facility] [address] [place], [address] IG% 0.500 Normal 0.0-0.9 [facility] Comment on above: Result Comment: IG% - Immature Granulocytes (promyelocytes, myelocytes and metamyelocytes) > 1% indicates that a LEFT SHIFT is Present. Performed By: #### L 3100.5475, L100.0100, L501.6710, L505.7010, L101.9900, L4600.0100, L501.1400 #### [facility] [address] [place], [address] Lymphocytes/100 WBC (Bld) 27.6 % Normal 19-41 [facility] Comment on above: Performed By: #### L 3100.5475, L100.0100, L501.6710, L505.7010, L101.9900, L4600.0100, L501.1400 #### [facility] [address] [place], [address] MCH (RBC) [Entitic mass] 25.5 pg Low 27.0-32.0 [facility] Comment on above: Performed By: #### L 3100.5475, L100.0100, L501.6710, L505.7010, L101.9900, L4600.0100, L501.1400 #### [facility] [address] [place], [address] MCHC (RBC) [Mass/Vol] 31.6 g/dL Low 32-36 [facility] Comment on above: Performed By: #### L 3100.5475, L100.0100, L501.6710, L505.7010, L101.9900, L4600.0100, L501.1400 #### [facility] [address] [place], [address] MCV (RBC) [Entitic vol] 80.9 fL Low 81-99 [facility] Comment on above: Performed By: #### L 3100.5475, L100.0100, L501.6710, L505.7010, L101.9900, L4600.0100, L501.1400 #### [facility] [address] [place], [address] Monocytes/100 WBC (Bld) 3.8 % Normal 0-10 [facility] Comment on above: Performed By: #### L 3100.5475, L100.0100, L501.6710, L505.7010, L101.9900, L4600.0100, L501.1400 #### [facility] [address] [place], [address] Neutrophils/100 WBC (Bld) 65.4 % Normal 47-70 [facility] Comment on above: Performed By: #### L 3100.5475, L100.0100, L501.6710, L505.7010, L101.9900, L4600.0100, L501.1400 #### [facility] [address] [place], [address] Nucleated RBC (Bld) [#/Vol] 0 10*3/uL Normal 0-5 [facility] Comment on above: Performed By: #### L 3100.5475, L100.0100, L501.6710, L505.7010, L101.9900, L4600.0100, L501.1400 #### [facility] [address] [place], [address] Platelet mean volume (Bld) [Entitic vol] 9.6 fL Normal 6.2-12.0 [facility] Comment on above: Performed By: #### L 3100.5475, L100.0100, L501.6710, L505.7010, L101.9900, L4600.0100, L501.1400 #### [facility] [address] [place], [address] Platelets (Bld) [#/Vol] 396 10*3/uL Normal 150-450 [facility] Comment on above: Performed By: #### L 3100.5475, L100.0100, L501.6710, L505.7010, L101.9900, L4600.0100, L501.1400 #### [facility] [address] [place], [address] RBC (Bld) [#/Vol] 5.64 10*6/uL High 4.2-5.4 [facility] Comment on above: Performed By: #### L 3100.5475, L100.0100, L501.6710, L505.7010, L101.9900, L4600.0100, L501.1400 #### [facility] [address] [place], [address] RDW SD 43.4 fl Normal 35.1-43.9 [facility] Comment on above: Performed By: #### L 3100.5475, L100.0100, L501.6710, L505.7010, L101.9900, L4600.0100, L501.1400 #### [facility] [address] [place], [address] WBC (Bld) [#/Vol] 7.7 10*3/uL Normal 4.4-11.0 [facility] Comment on above: Performed By: #### L 3100.5475, L100.0100, L501.6710, L505.7010, L101.9900, L4600.0100, L501.1400 #### [facility] [address] [place], [place], [id number] CRPon 01-12-2025 C-REACTIVE PROT 17.80 mg/L High 0.0-3.0 [facility] Comment on above: Performed By: #### L 3100.5475, L100.0100, L501.6710, L505.7010, L101.9900, L4600.0100, L501.1400 #### [facility] [address] [place], [place], [id number] Eosinophil percentageOrdered By: Mela Walker on 01-12-2025 Eosinophils/100 WBC (Bld) 1.8 % 0-5 [facility] Erythrocyte Sed Rateon 01-12 SED RATE 32 mm/hr High 0-30 [facility] Comment on above: Performed By: #### L 3100.5475, L100.0100, L501.6710, L505.7010, L101.9900, L4600.0100, L501.1400 #### [facility] [address] [place], [place], [id number] Erythrocyte distribution wid th ratioOrdered By: Mela Walker on 01-12-2025 Erythrocyte distribution width (RBC) [Ratio] 14.9 % High 11.6-14.6 [facility] Erythrocyte distribution wid th standard deviationOrdered By: Mela Walker on 01-12-2025 Erythrocyte distribution width (RBC) [Ratio] 43.4 fl 35.1-43.9 [facility] Erythrocyte sedimentation ra teOrdered By: Mela Walker on 01-12-2025 ESR (Bld) [Velocity] 32 mm/h High 0-30 [facility] Hematocrit Auto (Bld) [Volum e fraction]Ordered By: Mela Walker on 01-12-2025 Hematocrit (Bld) [Volume fraction] 45.6 % 37-47 [facility] Hemoglobin measurementOrdere d By: Mela Walker on 01-12-2025 Hemoglobin (Bld) [Mass/Vol] 14.4 g/dL 12.0-15.0 [facility] Immature granulocytes/100 WB C Auto (Bld)Ordered By: Mela Walker on 01-12-2025 Immature granulocytes/100 WBC (Bld) 0.500 % 0.0-0.9 [facility] Comment on above: IG% - Immature Granu locytes (promyelocytes, myelocytes and metamyelocytes) > 1% indicates that a LEFT SHIFT is Present. MCV (mean corpuscular volume ) determinationOrdered By: Mela Walker on 01-12-2025 MCV (RBC) [Entitic vol] 80.9 fL Low 81-99 [facility] Mean corpuscular hemoglobin (MCH) determinationOrdered By: Mela Walker on 01-12-2025 MCH (RBC) [Entitic mass] 25.5 pg Low 27.0-32.0 [facility] Mean corpuscular hemoglobin concentration (MCHC) determinationOrdered By: Mela Walker on 01-12-2025 MCHC (RBC) [Mass/Vol] 31.6 g/dL Low 32-36 [facility] Mean platelet volume determi nationOrdered By: Mela Walker on 01-12-2025 Platelet mean volume (Bld) [Entitic vol] 9.6 fL 6.2-12.0 [facility] Monocyte percentageOrdered B y: Mela Walker on 01-12-2025 Monocytes/100 WBC (Bld) 3.8 % 0-10 [facility] Neutrophil percentageOrdered By: Mela Walker on 01-12-2025 Neutrophils/100 WBC (Bld) 65.4 % 47-70 [facility] Nucleated red blood cell per centageOrdered By: Mela Walker on 01-12-2025 Nucleated RBC/100 WBC (Bld) [Ratio] 0 % 0-5 [facility] Platelet countOrdered By: Geronimo Walker on 01-12-2025 Platelets (Bld) [#/Vol] 396 10*3/uL 150-450 [facility] RBC Auto (Bld) [#/Vol]Ordere d By: Mela Walker on 01-12-2025 RBC (Bld) [#/Vol] 5.64 10*6/uL High 4.2-5.4 [facility] Rheumatoid Factoron 01-13-20 25 RHEUMATOID FAC < 10.0 Normal <15 [facility] Comment on above: Performed By: #### L 3100.5475, L100.0100, L501.6710, L505.7010, L101.9900, L4600.0100, L501.1400 #### [facility] [address] [place], [place], [id number] Serum or plasma C reactive p rotein measurement (mass/volume)Ordered By: Mela Walker on 01-12-2025 CRP [Mass/Vol] 17.80 mg/L High 0.0-3.0 [facility] Serum or plasma cyclic citru llinated peptide IgG antibody assay (units/volume)Ordered By: Mela Walker on 01-12-2025 Cyclic citrullinated peptide IgG Qn 4 units 0-19 [facility] Comment on above: Negative <20 Weak po sitive 20 - 39 Moderate positive 40 - 59 Strong positive >59Performed at: [facility] [id number] Director: Graham Kinney PhD, Phone: [phone] Serum or plasma uric acid me asurement (mass/volume)Ordered By: Mela Walker on 01-12-2025 Urate [Mass/Vol] 4.2 mg/dL 2.6-6.0 [facility] Comment on above: The drugs N-Acetylcy steine and Metamizole may falsely depress this assay. Serum rheumatoid factor dete ctionOrdered By: Mela Walker on 01-12-2025 Rheumatoid factor Ql (S) < 10.0 IU/mL <15 [facility] Uric Acidon 01-12-2025 URIC 4.2 mg/dL Normal 2.6-6.0 [facility] Comment on above: Result Comment: The drugs N-Acetylcysteine and Metamizole may falsely depress this assay. Performed By: #### L 3100.5475, L100.0100, L501.6710, L505.7010, L101.9900, L4600.0100, L501.1400 #### [facility] [address] [place], [address] White blood cell (WBC) count Ordered By: Mela Walker on 01-12-2025 WBC (Bld) [#/Vol] 7.7 10*3/uL 4.4-11.0 [facility] 12 Lead EKGon 12-08-2024 12 Lead EKG [facility] [address] [address] 12 Lead EKG 12/08/24 0759 MR#: [id number] Acct: [id number] Name: FRIDA WIN Rep #: [id number] : 1980 44 From: Sedrick Anglin MD [...] ECG Confirmed by SEDRICK ANGLIN MD ([id number]), design editor BHASKAR RASHID ([id number]) on 12/09/2024 11:04:54 AM Referred By: Confirmed By: SEDRICK ANGLIN MD 12/09/24 1104 Date Sedrick Anglin MD CC: LEAF [employer] PICKER-C Mela Walker; Dr. Deonte Beckett DO Signed Normal [facility] Absolute lymphocyte countOrd ered By: Deonte Beckett on 12-08-2024 Lymphocytes Auto (Unsp spec) [#/Vol] 1.74 10*3/uL 0.83-4.51 [facility] Absolute neutrophil countOrd ered By: Deonte Beckett on 06-23-2025 Neutrophils (Bld) [#/Vol] 7.4 10*3/uL 2.0-7.7 [facility] Anion gap in Serum or Plasma Ordered By: Deonte Beckett on 12-08-2024 Anion gap [Moles/Vol] 11 mmol/L 5-15 [facility] Automated lymphocyte count a s percentage of total leukocytesOrdered By: Deonte Beckett on 12-08-2024 Lymphocytes/100 WBC Auto (Unsp spec) 17.8 % Low 19- [facility] BUN/creatinine ratioOrdered By: Deonte Beckett on 12-08-2024 Urea nitrogen/Creatinine [Mass ratio] 12.6 mg/mg 10- [facility] Basophil percentageOrdered B y: Deonte Beckett on 12-08-2024 Basophils/100 WBC (Bld) 0.6 % 0-1 [facility] Bilirubin, totalOrdered By: Deonte Beckett on 12-08-2024 Bilirubin [Mass/Vol] 0.37 mg/dL 0.00-1.30 [facility] CBC W/Diff, Automatedon 11-17 Absolute Lymph 1.74 X10 3/uL Normal 0.83-4.51 [facility] Comment on above: Performed By: #### L 3100.5475, L100.0100, L501.6710, L505.7010, L101.9900, L4600.0100, L501.1400 #### [facility] [address] [place], [address] Absolute Neut 7.4 X10 3/uL Normal 2.0-7.7 [facility] Comment on above: Performed By: #### L 3100.5475, L100.0100, L501.6710, L505.7010, L101.9900, L4600.0100, L501.1400 #### [facility] [address] [place], [address] Basophils/100 WBC (Bld) 0.6 % Normal 0-1 [facility] Comment on above: Performed By: #### L 3100.5475, L100.0100, L501.6710, L505.7010, L101.9900, L4600.0100, L501.1400 #### [facility] [address] [place], [address] Eosinophils/100 WBC (Bld) 1.1 % Normal 0-5 [facility] Comment on above: Performed By: #### L 3100.5475, L100.0100, L501.6710, L505.7010, L101.9900, L4600.0100, L501.1400 #### [facility] [address] [place], [address] Erythrocyte distribution width (RBC) [Ratio] 14.6 % Normal 11.6-14.6 [facility] Comment on above: Performed By: #### L 3100.5475, L100.0100, L501.6710, L505.7010, L101.9900, L4600.0100, L501.1400 #### [facility] [address] [place], [address] Hematocrit (Bld) [Volume fraction] 44.9 % Normal 37-47 [facility] Comment on above: Performed By: #### L 3100.5475, L100.0100, L501.6710, L505.7010, L101.9900, L4600.0100, L501.1400 #### [facility] [address] [place], [address] Hemoglobin (Bld) [Mass/Vol] 14.4 g/dL Normal 12.0-15.0 [facility] Comment on above: Performed By: #### L 3100.5475, L100.0100, L501.6710, L505.7010, L101.9900, L4600.0100, L501.1400 #### [facility] [address] [place], [address] IG% 0.500 Normal 0.0-0.9 [facility] Comment on above: Result Comment: IG% - Immature Granulocytes (promyelocytes, myelocytes and metamyelocytes) > 1% indicates that a LEFT SHIFT is Present. Performed By: #### L 3100.5475, L100.0100, L501.6710, L505.7010, L101.9900, L4600.0100, L501.1400 #### [facility] [address] [place], [address] Lymphocytes/100 WBC (Bld) 17.8 % Low 19-41 [facility] Comment on above: Performed By: #### L 3100.5475, L100.0100, L501.6710, L505.7010, L101.9900, L4600.0100, L501.1400 #### [facility] [address] [place], [address] MCH (RBC) [Entitic mass] 25.9 pg Low 27.0-32.0 [facility] Comment on above: Performed By: #### L 3100.5475, L100.0100, L501.6710, L505.7010, L101.9900, L4600.0100, L501.1400 #### [facility] [address] [place], [address] MCHC (RBC) [Mass/Vol] 32.1 g/dL Normal 32-36 [facility] Comment on above: Performed By: #### L 3100.5475, L100.0100, L501.6710, L505.7010, L101.9900, L4600.0100, L501.1400 #### [facility] [address] [place], [address] MCV (RBC) [Entitic vol] 80.8 fL Low 81-99 [facility] Comment on above: Performed By: #### L 3100.5475, L100.0100, L501.6710, L505.7010, L101.9900, L4600.0100, L501.1400 #### [facility] [address] [place], [address] Monocytes/100 WBC (Bld) 4.0 % Normal 0-10 [facility] Comment on above: Performed By: #### L 3100.5475, L100.0100, L501.6710, L505.7010, L101.9900, L4600.0100, L501.1400 #### [facility] [address] [place], [address] Neutrophils/100 WBC (Bld) 76.0 % High 47-70 [facility] Comment on above: Performed By: #### L 3100.5475, L100.0100, L501.6710, L505.7010, L101.9900, L4600.0100, L501.1400 #### [facility] [address] [place], [address] Nucleated RBC (Bld) [#/Vol] 0 10*3/uL Normal 0-5 [facility] Comment on above: Performed By: #### L 3100.5475, L100.0100, L501.6710, L505.7010, L101.9900, L4600.0100, L501.1400 #### [facility] [address] [place], [address] Platelet mean volume (Bld) [Entitic vol] 9.5 fL Normal 6.2-12.0 [facility] Comment on above: Performed By: #### L 3100.5475, L100.0100, L501.6710, L505.7010, L101.9900, L4600.0100, L501.1400 #### [facility] [address] [place], [address] Platelets (Bld) [#/Vol] 367 10*3/uL Normal 150-450 [facility] Comment on above: Performed By: #### L 3100.5475, L100.0100, L501.6710, L505.7010, L101.9900, L4600.0100, L501.1400 #### [facility] [address] [place], [address] RBC (Bld) [#/Vol] 5.56 10*6/uL High 4.2-5.4 [facility] Comment on above: Performed By: #### L 3100.5475, L100.0100, L501.6710, L505.7010, L101.9900, L4600.0100, L501.1400 #### [facility] [address] [place], [address] RDW SD 42.7 fl Normal 35.1-43.9 [facility] Comment on above: Performed By: #### L 3100.5475, L100.0100, L501.6710, L505.7010, L101.9900, L4600.0100, L501.1400 #### [facility] [address] [place], [address] (252 WBC (Bld) [#/Vol] 9.8 10*3/uL Normal 4.4-11.0 [facility] Comment on above: Performed By: #### L 3100.5475, L100.0100, L501.6710, L505.7010, L101.9900, L4600.0100, L501.1400 #### [facility] [address] [place], [place], [id number] Carbon dioxide, total [Moles /volume] in Central venous bloodOrdered By: Deonte Beckett on 12-08-2024 CO2 [Moles/Vol] 22.8 mmol/L 21.0-32.0 [facility] Chest 1 View (Portable)on Chest 1 View (Portable) [facility] Imaging Services [address] [place] [address] Chest 1 View (Portable) MR#: [id number] Acct: [id number] Name: FRIDA WIN Rep #: [id number] : 1980 F 44 From: Erickson Silvestre PCP: FILIBERTO Cooper Status: REG ER Study: Chest 1 View (Portable) Date of Exam: 12/08/24 Exam# [id number] Ordering Dr: Deonte Beckett DO PROCEDURE: CHEST [...] acute osseous process is seen. Reading Location: [place] [address] CC: FILIBERTO Walker; Dr. 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 [place], [place], [id number] Albumin/Globulin [Mass ratio] 1.2 {ratio} Normal 0.9-2.4 [facility] Comment on above: Performed By: #### L 3100.5475, L100.0100, L501.6710, L505.7010, L101.9900, L4600.0100, L501.1400 #### [facility] [address] [place], [address] ALK PHOS 81 U/L Normal 35-104 [facility] Comment on above: Performed By: #### L 3100.5475, L100.0100, L501.6710, L505.7010, L101.9900, L4600.0100, L501.1400 #### [facility] [address] [place], [address] ALT [Catalytic activity/Vol] 13 U/L Normal <=34 [facility] Comment on above: Performed By: #### L 3100.5475, L100.0100, L501.6710, L505.7010, L101.9900, L4600.0100, L501.1400 #### [facility] [address] [place], [address] AST [Catalytic activity/Vol] 19 U/L Normal <=31 [facility] Comment on above: Result Comment: Hemo lysis present, Results??could be affected. ?? Performed By: #### L 3100.5475, L100.0100, L501.6710, L505.7010, L101.9900, L4600.0100, L501.1400 #### [facility] [address] [place], [address] Bilirubin [Mass/Vol] 0.37 mg/dL Normal 0.00-1.30 [facility] Comment on above: Performed By: #### L 3100.5475, L100.0100, L501.6710, L505.7010, L101.9900, L4600.0100, L501.1400 #### [facility] [address] [place], [address] BUN/CRE 12.6 RATIO Normal 10-20 [facility] Comment on above: Performed By: #### L 3100.5475, L100.0100, L501.6710, L505.7010, L101.9900, L4600.0100, L501.1400 #### [facility] [address] [place], [address] Calcium [Mass/Vol] 9.1 mg/dL Normal 7.6-11.0 [facility] Comment on above: Performed By: #### L 3100.5475, L100.0100, L501.6710, L505.7010, L101.9900, L4600.0100, L501.1400 #### [facility] [address] [place], [address] Chloride [Moles/Vol] 101 mmol/L Normal 98-108 [facility] Comment on above: Performed By: #### L 3100.5475, L100.0100, L501.6710, L505.7010, L101.9900, L4600.0100, L501.1400 #### [facility] [address] [place], [address] CO2 [Moles/Vol] 22.8 mmol/L Normal 21.0-32.0 [facility] Comment on above: Performed By: #### L 3100.5475, L100.0100, L501.6710, L505.7010, L101.9900, L4600.0100, L501.1400 #### [facility] [address] [place], [address] Creatinine [Mass/Vol] 0.68 mg/dL Low 0.70-1.20 [facility] Comment on above: Performed By: #### L 3100.5475, L100.0100, L501.6710, L505.7010, L101.9900, L4600.0100, L501.1400 #### [facility] [address] [place], [address] ECRCL 127.80 ml/min Normal 50-250 [facility] Comment on above: Performed By: #### L 3100.5475, L100.0100, L501.6710, L505.7010, L101.9900, L4600.0100, L501.1400 #### [facility] [address] [place], [address] GAP 11 Normal 5-15 [facility] Comment on above: Performed By: #### L 3100.5475, L100.0100, L501.6710, L505.7010, L101.9900, L4600.0100, L501.1400 #### [facility] [address] [place], [address] GFR/1.73 sq M.predicted among non-blacks MDRD (S/P/Bld) [Vol rate/Area] 111 mL/min/{1.73_m2} Normal >60 [facility] Comment on above: Result Comment: mL/m in/1.73m2 CKD-EPI Creatinine Equation (2020) Performed By: #### L 3100.5475, L100.0100, L501.6710, L505.7010, L101.9900, L4600.0100, L501.1400 #### [facility] [address] [place], [address] Globulin (S) [Mass/Vol] 3.4 g/dL Normal 2.2-4.2 [facility] Comment on above: Performed By: #### L 3100.5475, L100.0100, L501.6710, L505.7010, L101.9900, L4600.0100, L501.1400 #### [facility] [address] [place], [address] Glucose [Mass/Vol] 118 mg/dL High 70-99 [facility] Comment on above: Performed By: #### L 3100.5475, L100.0100, L501.6710, L505.7010, L101.9900, L4600.0100, L501.1400 #### [facility] [address] [place], [address] Potassium [Moles/Vol] 4.5 mmol/L Normal 3.3-5.1 [facility] Comment on above: Result Comment: Hemo lysis present, Results??could be affected. ?? Performed By: #### L 3100.5475, L100.0100, L501.6710, L505.7010, L101.9900, L4600.0100, L501.1400 #### [facility] [address] [place], [address] Sodium [Moles/Vol] 135 mmol/L Normal 133-145 [facility] Comment on above: Performed By: #### L 3100.5475, L100.0100, L501.6710, L505.7010, L101.9900, L4600.0100, L501.1400 #### [facility] [address] [place], [address] T PROT 7.4 g/dL Normal 5.9-8.4 [facility] Comment on above: Performed By: #### L 3100.5475, L100.0100, L501.6710, L505.7010, L101.9900, L4600.0100, L501.1400 #### [facility] [address] [place], [address] Urea nitrogen [Mass/Vol] 9 mg/dL Normal 4-19 [facility] Comment on above: Performed By: #### L 3100.5475, L100.0100, L501.6710, L505.7010, L101.9900, L4600.0100, L501.1400 #### [facility] [address] [place], [address] Emergency Department Summary on 12-08-2024 [facility] [address] [place] [address] Emergency Department Summary 12/08/24 MR#: [id number] Acct: [id number] Name: FRIDA WIN Rep #: [id number] : 1980 44 From: Deonte Beckett DO [...] that this is not unusual for her. 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 NIH is 0 GCS 15 patient completed finger-nose testing bilaterally without any difficulty Skin: Warm (more content not included)... Normal [facility] Eosinophil percentageOrdered By: Deonte Beckett on 12-08-2024 Eosinophils/100 WBC (Bld) 1.1 % 0-5 [facility] Erythrocyte distribution wid th ratioOrdered By: Deonte Beckett on 12-08-2024 Erythrocyte distribution width (RBC) [Ratio] 14.6 % 11.6-14.6 [facility] Erythrocyte distribution wid th standard deviationOrdered By: Deonte Beckett on 12-08-2024 Erythrocyte distribution width (RBC) [Ratio] 42.7 fl 35.1-43.9 [facility] Free T3on 12-08-2024 Free T3 [Mass/Vol] 3.3 pg/mL Normal 2.18-3.98 [facility] Comment on above: Performed By: #### L 3100.5475, L100.0100, L501.6710, L505.7010, L101.9900, L4600.0100, L501.1400 #### [facility] [address] [place], [address] Free [id number] By: Deonte choudhary on 12-08-2024 Free T3 [Mass/Vol] 3.3 pg/mL 2.18-3.98 [facility] Glomerular filtration rate ( GFR) estimation/1.73 sq m using serum, plasma, or whole bOrdered By: Deonte Beckett on 12-08-2024 GFR/1.73 sq M.predicted among non-blacks MDRD (S/P/Bld) [Vol rate/Area] 111 mL/min/{1.73_m2} >60 [facility] Comment on above: mL/min/1.73m2 CKD-EP I Creatinine Equation (2020) Hematocrit Auto (Bld) [Volum e fraction]Ordered By: Deonte Beckett on 12-08-2024 Hematocrit (Bld) [Volume fraction] 44.9 % 37-47 [facility] Hemoglobin measurementOrdere d By: Deonte Beckett on 12-08-2024 Hemoglobin (Bld) [Mass/Vol] 14.4 g/dL 12.0-15.0 [facility] Immature granulocytes/100 WB C Auto (Bld)Ordered By: Deonte Beckett on 12-08-2024 Immature granulocytes/100 WBC (Bld) 0.500 % 0.0-0.9 [facility] Comment on above: IG% - Immature Granu locytes (promyelocytes, myelocytes and metamyelocytes) > 1% indicates that a LEFT SHIFT is Present. L499.0042on 12-08-2024 Trop T High Sen < 6 Normal <=14 [facility] Comment on above: Performed By: #### L 3100.5475, L100.0100, L501.6710, L505.7010, L101.9900, L4600.0100, L501.1400 #### [facility] [address] [place], [place], [address] L499.0043on 12-08-2024 Trop T High Sen Normal <=14 [facility] Comment on above: Result Comment: Canc elled via OM: Order cancelled - Patient discharged Performed By: #### L 3100.5475, L100.0100, L501.6710, L505.7010, L101.9900, L4600.0100, L501.1400 #### [facility] [address] [place], [place], [address] Laboratory - Chemistry and C hemistry - challengeOrdered By: Deonte Beckett on 12-08-2024 AST [Catalytic activity/Vol] 19 U/L <32 [facility] Comment on above: Hemolysis present, R esults could be affected. Lipaseon 12-08-2024 Lipase [Catalytic activity/Vol] 15 U/L Normal 13-75 [facility] Comment on above: Result Comment: Plea se note: LIPASE revised reference range effective 22. New Lipase methodology. Expected to produce lower values than the previous assay method. NEW Reference Range: 13 - 75 U/L Performed By: #### L 3100.5475, L100.0100, L501.6710, L505.7010, L101.9900, L4600.0100, L501.1400 #### [facility] [address] [place], [address] Lipase measurementOrdered By : Deonte Beckett on 12-08-2024 Lipase [Catalytic activity/Vol] 15 U/L 13-75 [facility] Comment on above: Please note:LIPASE r evised reference range effective 22. New Lipase methodology. Expected to produce lower values than the previous assay method. NEW Reference Range: 13 - 75 U/L MCV (mean corpuscular volume ) determinationOrdered By: Deonte Beckett on 12-08-2024 MCV (RBC) [Entitic vol] 80.8 fL Low 81-99 [facility] Mean corpuscular hemoglobin (MCH) determinationOrdered By: Deonte Beckett on 12-08-2024 MCH (RBC) [Entitic mass] 25.9 pg Low 27.0-32.0 [facility] Mean corpuscular hemoglobin concentration (MCHC) determinationOrdered By: Deonte Beckett on 12-08-2024 MCHC (RBC) [Mass/Vol] 32.1 g/dL 32-36 [facility] Mean platelet volume determi nationOrdered By: Deonte Beckett on 12-08-2024 Platelet mean volume (Bld) [Entitic vol] 9.5 fL 6.2-12.0 [facility] Monocyte percentageOrdered B y: Deonte Beckett on 12-08-2024 Monocytes/100 WBC (Bld) 4.0 % 0-10 [facility] Neutrophil percentageOrdered By: Deonte Beckett on 12-08-2024 Neutrophils/100 WBC (Bld) 76.0 % High 47-70 [facility] Nucleated red blood cell per centageOrdered By: Deonte Beckett on 12-08-2024 Nucleated RBC/100 WBC (Bld) [Ratio] 0 % 0-5 [facility] Platelet countOrdered By: Cipriano Beckett on 12-08-2024 Platelets (Bld) [#/Vol] 367 10*3/uL 150-450 [facility] Potassium measurement (mass/ volume)Ordered By: Deonte Beckett on 12-08-2024 Potassium (Unsp spec) [Mass/Vol] 4.5 mmol/L 3.3-5.1 [facility] Comment on above: Hemolysis present, R esults could be affected. ,Serum,hCG Quali.on 12-08-2024 HCG, SERUM QUAL Negative Normal [facility] Comment on above: Performed By: #### L 3100.5475, L100.0100, L501.6710, L505.7010, L101.9900, L4600.0100, L501.1400 #### [facility] [address] [place], [address] RBC Auto (Bld) [#/Vol]Ordere d By: Deonte Beckett on 12-08-2024 RBC (Bld) [#/Vol] 5.56 10*6/uL High 4.2-5.4 [facility] Serum beta-hCG test, qualita tiveOrdered By: Deonte Beckett on 12-08-2024 Beta HCG ( test) Ql Negative [facility] Serum creatinine measurement (mass/volume)Ordered By: Deonte Beckett on 12-08-2024 Creatinine [Mass/Vol] 0.68 mg/dL Low 0.70-1.20 [facility] Serum globulin measurementOr dered By: Deonte Beckett on 12-08-2024 Globulin (S) [Mass/Vol] 3.4 g/dL 2.2-4.2 [facility] Serum glucose measurement (m ass/volume)Ordered By: Deonte Beckett on 12-08-2024 Glucose [Mass/Vol] 118 mg/dL High 70-99 [facility] Serum or plasma alanine zavala otransferase (ALT) measurementOrdered By: Deonte Beckett on 12-08-2024 ALT [Catalytic activity/Vol] 13 U/L <35 [facility] Serum or plasma albumin emanuel urement (mass/volume)Ordered By: Deonte Beckett on 12-08-2024 Albumin [Mass/Vol] 4.0 g/dL 3.5-5.0 [facility] Serum or plasma albumin/glob ulin mass ratioOrdered By: Deonte Beckett on 12-08-2024 Albumin/Globulin [Mass ratio] 1.2 {ratio} 0.9-2.4 [facility] Serum or plasma alkaline treva sphatase measurementOrdered By: Deonte Beckett on 12-08-2024 ALP [Catalytic activity/Vol] 81 U/L 35-104 [facility] Serum or plasma calcium emanuel urement (mass/volume)Ordered By: Deonte Beckett on 12-08-2024 Calcium [Mass/Vol] 9.1 mg/dL 7.6-11.0 [facility] Serum or plasma urea nitroge n measurement (mass/volume)Ordered By: Deonte Beckett on 12-08-2024 Urea nitrogen [Mass/Vol] 9 mg/dL 4-19 [facility] Sodium levelOrdered By: John Beckett on 12-08-2024 Sodium [Moles/Vol] 135 mmol/L 133-145 [facility] T4 Free Directon 12-08-2024 T4 FREE DIRECT 1.10 ng/dL Normal 0.76-1.46 [facility] Comment on above: Performed By: #### L 3100.5475, L100.0100, L501.6710, L505.7010, L101.9900, L4600.0100, L501.1400 #### [facility] [address] [place] [address]. [place], [address] T4 freeOrdered By: Deonte choudhary on 12-08-2024 Free T4 [Mass/Vol] 1.10 ng/dL 0.76-1.46 [facility] TSH DL <= 0.005 mIU/L QnOrde red By: Deonte Beckett on 12-08-2024 TSH Qn 0.674 uIU/mL 0.300-4.200 [facility] Thyroid Stim Hormone (TSH)on 12-08-2024 TSH 0.674 uIU/mL Normal 0.300-4.200 [facility] Comment on above: Performed By: #### L 3100.5475, L100.0100, L501.6710, L505.7010, L101.9900, L4600.0100, L501.1400 #### [facility] [address] [place], [address] Total proteinOrdered By: Lisa Beckett on 12-08-2024 Protein [Mass/Vol] 7.4 g/dL 5.9-8.4 [facility] Troponin T.cardiac [Mass/vol ume] in Serum or Plasma by High sensitivity methodOrdered By: Deonte Beckett on 12-08-2024 Troponin T.cardiac High sensitivity method [Mass/Vol] < 6 ng/L <14 [facility] White blood cell (WBC) count Ordered By: Deonte Beckett on 12-08-2024 WBC (Bld) [#/Vol] 9.8 10*3/uL 4.4-11.0 [facility] Project Geologist Office Visit Reporton 10-14-2024 Project Geologist Office Visit Report [facility] [address], [address] [place] [address] OFFICE VISIT Date of Service: 10/14/24 MR#: [id number] Acct: [id number] Name: FRIDA WIN Rep #: [id number] : 1980 Provider: FILIBERTO Anguiano Age/Sex: 44/F Location: [facility] Status: Signed Intake Vital Signs 08/06/23 09:24 10/14/24 15:07 Height 5 ft 3 in 5 ft 3 in Weight: 247 lb BMI 43.7 BP 137/81 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 Normal [facility] S-I Jts 3 or More Viewson S-I Jts 3 or More Views [facility] Imaging Services [address] [place] [address] S-I Jts 3 or More Views MR#: [id number] Acct: [id number] Name: FRIDA WIN Rep #: [id number] : 1980 F 43 From: Erickson Silvestre PCP: Mela Walker NP-C Status: REG CLI Study: S-I Jts 3 or More Views Date of Exam: 07/30/24 Exam# [id number] Ordering Dr: Mela Walker PROCEDURE: S-I JTS [...] fracture or dislocation is evident. Reading Location: [address] CC: FILIBERTO Walker Floor Installer: Signed Normal [facility] CBC W/Diff, Automatedon 02- Absolute Lymph 2.29 X10 3/uL Normal 0.83-4.51 [facility] Comment on above: Performed By: #### L 500.4050, L506.0400, L506.1000, L503.0105, L500.4100, L503.6550, L501.9985, L501.9520, L503.6030, L100.0100, L506.0250 #### [facility] [address] [place], [address] Absolute Neut 6.0 X10 3/uL Normal 2.0-7.7 [facility] Comment on above: Performed By: #### L 500.4050, L506.0400, L506.1000, L503.0105, L500.4100, L503.6550, L501.9985, L501.9520, L503.6030, L100.0100, L506.0250 #### [facility] [address] [place], [address] Basophils/100 WBC (Bld) 0.9 % Normal 0-1 [facility] Comment on above: Performed By: #### L 500.4050, L506.0400, L506.1000, L503.0105, L500.4100, L503.6550, L501.9985, L501.9520, L503.6030, L100.0100, L506.0250 #### [facility] [address] [place], [address] Eosinophils/100 WBC (Bld) 1.2 % Normal 0-5 [facility] Comment on above: Performed By: #### L 500.4050, L506.0400, L506.1000, L503.0105, L500.4100, L503.6550, L501.9985, L501.9520, L503.6030, L100.0100, L506.0250 #### [facility] [address] [place], [place], [phone] (586) Erythrocyte distribution width (RBC) [Ratio] 15.3 % High 11.6-14.6 [facility] Comment on above: Performed By: #### L 500.4050, L506.0400, L506.1000, L503.0105, L500.4100, L503.6550, L501.9985, L501.9520, L503.6030, L100.0100, L506.0250 #### [facility] [address] [place], [place], [phone] (359) Hematocrit (Bld) [Volume fraction] 43.4 % Normal 37-47 [facility] Comment on above: Performed By: #### L 500.4050, L506.0400, L506.1000, L503.0105, L500.4100, L503.6550, L501.9985, L501.9520, L503.6030, L100.0100, L506.0250 #### [facility] [address] [place], [place], [phone] (943) Hemoglobin (Bld) [Mass/Vol] 14.0 g/dL Normal 12.0-15.0 [facility] Comment on above: Performed By: #### L 500.4050, L506.0400, L506.1000, L503.0105, L500.4100, L503.6550, L501.9985, L501.9520, L503.6030, L100.0100, L506.0250 #### [facility] [address] [place], [address] IG% 0.600 Normal 0.0-0.9 [facility] Comment on above: Result Comment: IG% - Immature Granulocytes (promyelocytes, myelocytes and metamyelocytes) > 1% indicates that a LEFT SHIFT is Present. Performed By: #### L 500.4050, L506.0400, L506.1000, L503.0105, L500.4100, L503.6550, L501.9985, L501.9520, L503.6030, L100.0100, L506.0250 #### [facility] [address] [place], [address] Lymphocytes/100 WBC (Bld) 25.7 % Normal 19-41 [facility] Comment on above: Performed By: #### L 500.4050, L506.0400, L506.1000, L503.0105, L500.4100, L503.6550, L501.9985, L501.9520, L503.6030, L100.0100, L506.0250 #### [facility] [address] [place], [address] MCH (RBC) [Entitic mass] 25.7 pg Low 27.0-32.0 [facility] Comment on above: Performed By: #### L 500.4050, L506.0400, L506.1000, L503.0105, L500.4100, L503.6550, L501.9985, L501.9520, L503.6030, L100.0100, L506.0250 #### [facility] [address] [place], [address] MCHC (RBC) [Mass/Vol] 32.3 g/dL Normal 32-36 [facility] Comment on above: Performed By: #### L 500.4050, L506.0400, L506.1000, L503.0105, L500.4100, L503.6550, L501.9985, L501.9520, L503.6030, L100.0100, L506.0250 #### [facility] [address] [place], [address] MCV (RBC) [Entitic vol] 79.6 fL Low 81-99 [facility] Comment on above: Performed By: #### L 500.4050, L506.0400, L506.1000, L503.0105, L500.4100, L503.6550, L501.9985, L501.9520, L503.6030, L100.0100, L506.0250 #### [facility] [address] [place], [address] Monocytes/100 WBC (Bld) 4.4 % Normal 0-10 [facility] Comment on above: Performed By: #### L 500.4050, L506.0400, L506.1000, L503.0105, L500.4100, L503.6550, L501.9985, L501.9520, L503.6030, L100.0100, L506.0250 #### [facility] [address] [place], [address] Neutrophils/100 WBC (Bld) 67.2 % Normal 47-70 [facility] Comment on above: Performed By: #### L 500.4050, L506.0400, L506.1000, L503.0105, L500.4100, L503.6550, L501.9985, L501.9520, L503.6030, L100.0100, L506.0250 #### [facility] [address] [place], [address] Nucleated RBC (Bld) [#/Vol] 0 10*3/uL Normal 0-5 [facility] Comment on above: Performed By: #### L 500.4050, L506.0400, L506.1000, L503.0105, L500.4100, L503.6550, L501.9985, L501.9520, L503.6030, L100.0100, L506.0250 #### [facility] [address] [place], [address] Platelet mean volume (Bld) [Entitic vol] 9.4 fL Normal 6.2-12.0 [facility] Comment on above: Performed By: #### L 500.4050, L506.0400, L506.1000, L503.0105, L500.4100, L503.6550, L501.9985, L501.9520, L503.6030, L100.0100, L506.0250 #### [facility] [address] [place], [address] Platelets (Bld) [#/Vol] 398 10*3/uL Normal 150-450 [facility] Comment on above: Performed By: #### L 500.4050, L506.0400, L506.1000, L503.0105, L500.4100, L503.6550, L501.9985, L501.9520, L503.6030, L100.0100, L506.0250 #### [facility] [address] [place], [address] RBC (Bld) [#/Vol] 5.45 10*6/uL High 4.2-5.4 [facility] Comment on above: Performed By: #### L 500.4050, L506.0400, L506.1000, L503.0105, L500.4100, L503.6550, L501.9985, L501.9520, L503.6030, L100.0100, L506.0250 #### [facility] [address] [place], [place], [id number] RDW SD 43.7 fl Normal 35.1-43.9 [facility] Comment on above: Performed By: #### L 500.4050, L506.0400, L506.1000, L503.0105, L500.4100, L503.6550, L501.9985, L501.9520, L503.6030, L100.0100, L506.0250 #### [facility] [address] [place], [place], [id number] WBC (Bld) [#/Vol] 8.9 10*3/uL Normal 4.4-11.0 [facility] Comment on above: Performed By: #### L 500.4050, L506.0400, L506.1000, L503.0105, L500.4100, L503.6550, L501.9985, L501.9520, L503.6030, L100.0100, L506.0250 #### [facility] [address] [place], [place], [id number] Comprehensive Metabolic Prof ilon 07-22-2024 Albumin [Mass/Vol] 3.5 g/dL Normal 3.2-5.0 [facility] Comment on above: Performed By: #### L 500.4050, L506.0400, L506.1000, L503.0105, L500.4100, L503.6550, L501.9985, L501.9520, L503.6030, L100.0100, L506.0250 #### [facility] [address] [place], [place], [id number] Albumin/Globulin [Mass ratio] 0.8 {ratio} Low 0.9-2.4 [facility] Comment on above: Performed By: #### L 500.4050, L506.0400, L506.1000, L503.0105, L500.4100, L503.6550, L501.9985, L501.9520, L503.6030, L100.0100, L506.0250 #### [facility] [address] [place], [place], [phone] (091) ALK P 82 U/L Normal 45-117 [facility] Comment on above: Performed By: #### L 500.4050, L506.0400, L506.1000, L503.0105, L500.4100, L503.6550, L501.9985, L501.9520, L503.6030, L100.0100, L506.0250 #### [facility] [address] [place], [place], [id number] ALT [Catalytic activity/Vol] 20 U/L Normal 13-56 [facility] Comment on above: Performed By: #### L 500.4050, L506.0400, L506.1000, L503.0105, L500.4100, L503.6550, L501.9985, L501.9520, L503.6030, L100.0100, L506.0250 #### [facility] [address] [place], [place], [id number] AST [Catalytic activity/Vol] 12 U/L Low 15-37 [facility] Comment on above: Performed By: #### L 500.4050, L506.0400, L506.1000, L503.0105, L500.4100, L503.6550, L501.9985, L501.9520, L503.6030, L100.0100, L506.0250 #### [facility] [address] [place], [address] Bilirubin [Mass/Vol] 0.40 mg/dL Normal 0.20-1.00 [facility] Comment on above: Result Comment: For patients on eltrombopag therapy, use of Dimension [place] TBIL is not recommended. Performed By: #### L 500.4050, L506.0400, L506.1000, L503.0105, L500.4100, L503.6550, L501.9985, L501.9520, L503.6030, L100.0100, L506.0250 #### [facility] [address] [place], [address] BUN/CRE 13.6 RATIO Normal 10-20 [facility] Comment on above: Performed By: #### L 500.4050, L506.0400, L506.1000, L503.0105, L500.4100, L503.6550, L501.9985, L501.9520, L503.6030, L100.0100, L506.0250 #### [facility] [address] [place], [address] CA,Total 9.6 mg/dL Normal 8.5-10.1 [facility] Comment on above: Performed By: #### L 500.4050, L506.0400, L506.1000, L503.0105, L500.4100, L503.6550, L501.9985, L501.9520, L503.6030, L100.0100, L506.0250 #### [facility] [address] [place], [address] Chloride [Moles/Vol] 106 mmol/L Normal 98-107 [facility] Comment on above: Performed By: #### L 500.4050, L506.0400, L506.1000, L503.0105, L500.4100, L503.6550, L501.9985, L501.9520, L503.6030, L100.0100, L506.0250 #### [facility] [address] [place], [address] CO2 [Moles/Vol] 27.0 mmol/L Normal 21.0-32.0 [facility] Comment on above: Performed By: #### L 500.4050, L506.0400, L506.1000, L503.0105, L500.4100, L503.6550, L501.9985, L501.9520, L503.6030, L100.0100, L506.0250 #### [facility] [address] [place], [address] Creatinine [Mass/Vol] 0.73 mg/dL Normal 0.55-1.02 [facility] Comment on above: Result Comment: The validity of the calculated GFR GFRAA in patients over 70 years has not been determined. Clinical correlation is essential. Performed By: #### L 500.4050, L506.0400, L506.1000, L503.0105, L500.4100, L503.6550, L501.9985, L501.9520, L503.6030, L100.0100, L506.0250 #### [facility] [address] [place], [address] EST GFR - AA 111 mL/min Normal >60 [facility] Comment on above: Result Comment: Afri can Somali GFR Calc Performed By: #### L 500.4050, L506.0400, L506.1000, L503.0105, L500.4100, L503.6550, L501.9985, L501.9520, L503.6030, L100.0100, L506.0250 #### [facility] [address] [place], [address] GAP 4 Low 5-15 [facility] Comment on above: Performed By: #### L 500.4050, L506.0400, L506.1000, L503.0105, L500.4100, L503.6550, L501.9985, L501.9520, L503.6030, L100.0100, L506.0250 #### [facility] [address] [place], [address] GFR/1.73 sq M.predicted among non-blacks MDRD (S/P/Bld) [Vol rate/Area] 92 mL/min/{1.73_m2} Normal >60 [facility] Comment on above: Result Comment: Non- GFR Calc Performed By: #### L 500.4050, L506.0400, L506.1000, L503.0105, L500.4100, L503.6550, L501.9985, L501.9520, L503.6030, L100.0100, L506.0250 #### [facility] [address] [place], [address] Globulin (S) [Mass/Vol] 4.2 g/dL Normal 2.2-4.2 [facility] Comment on above: Performed By: #### L 500.4050, L506.0400, L506.1000, L503.0105, L500.4100, L503.6550, L501.9985, L501.9520, L503.6030, L100.0100, L506.0250 #### [facility] [address] [place], [address] Glucose [Mass/Vol] 96 mg/dL Normal 74-106 [facility] Comment on above: Performed By: #### L 500.4050, L506.0400, L506.1000, L503.0105, L500.4100, L503.6550, L501.9985, L501.9520, L503.6030, L100.0100, L506.0250 #### [facility] [address] [place], [address] Potassium [Moles/Vol] 4.4 mmol/L Normal 3.5-5.1 [facility] Comment on above: Performed By: #### L 500.4050, L506.0400, L506.1000, L503.0105, L500.4100, L503.6550, L501.9985, L501.9520, L503.6030, L100.0100, L506.0250 #### [facility] [address] [place], [address] Sodium [Moles/Vol] 137 mmol/L Normal 136-145 [facility] Comment on above: Performed By: #### L 500.4050, L506.0400, L506.1000, L503.0105, L500.4100, L503.6550, L501.9985, L501.9520, L503.6030, L100.0100, L506.0250 #### [facility] [address] [place], [address] T PROT 7.7 g/dL Normal 6.4-8.2 [facility] Comment on above: Performed By: #### L 500.4050, L506.0400, L506.1000, L503.0105, L500.4100, L503.6550, L501.9985, L501.9520, L503.6030, L100.0100, L506.0250 #### [facility] [address] [place], [address] Urea nitrogen [Mass/Vol] 10 mg/dL Normal 7-18 [facility] Comment on above: Performed By: #### L 500.4050, L506.0400, L506.1000, L503.0105, L500.4100, L503.6550, L501.9985, L501.9520, L503.6030, L100.0100, L506.0250 #### [facility] [address] [place], [address] Ferritinon 07-22-2024 Ferritin [Mass/Vol] 198 ng/mL Normal 8-252 [facility] Comment on above: Performed By: #### L 3100.5475, L100.0100, L501.6710, L505.7010, L101.9900, L4600.0100, L501.1400 #### [facility] [address] [place], [address] Folates, (Folic Acid)on FOLATES 6.80 ng/mL Normal 3.1-55.4 [facility] Comment on above: Order Comment: N Performed By: #### L 3100.5475, L100.0100, L501.6710, L505.7010, L101.9900, L4600.0100, L501.1400 #### [facility] [address] [place], [address] Hemoglobin A1con 07-22-2024 HbA1c (Bld) [Mass fraction] 5.5 % Normal 3.8-5.6 [facility] Comment on above: Result Comment: Norm al < 5.7 % Prediabetic 5.7 - 6.4 % Diabetic >or= 6.5 % Please note range changes. Performed By: #### L 3100.5475, L100.0100, L501.6710, L505.7010, L101.9900, L4600.0100, L501.1400 #### [facility] [address] [place], [place], [phone] (202) Iron+Iron Binding Capacityon 07-22-2024 Iron [Mass/Vol] 45 ug/dL Low 50-170 [facility] Comment on above: Performed By: #### L 3100.5475, L100.0100, L501.6710, L505.7010, L101.9900, L4600.0100, L501.1400 #### [facility] [address] [place], [address] IRON SATURATION 18.9 Normal 15.0-55.0 [facility] Comment on above: Performed By: #### L 3100.5475, L100.0100, L501.6710, L505.7010, L101.9900, L4600.0100, L501.1400 #### [facility] [address] [place], [address] TIBC 238 ug/dL Low 250-450 [facility] Comment on above: Performed By: #### L 3100.5475, L100.0100, L501.6710, L505.7010, L101.9900, L4600.0100, L501.1400 #### [facility] [address] [place], [address] Lipid Profileon 07-22-2024 Cholesterol [Mass/Vol] 167 mg/dL Normal 200 [facility] Comment on above: Result Comment: <200 mg/dL Desirable 200-240 mg/dL Borderline >240 mg/dL High Risk Performed By: #### L 500.4050, L506.0400, L506.1000, L503.0105, L500.4100, L503.6550, L501.9985, L501.9520, L503.6030, L100.0100, L506.0250 #### [facility] [address] [place], [address] Cholesterol in HDL [Mass/Vol] 56 mg/dL Normal [facility] Comment on above: Result Comment: The drugs N-Acetylcysteine and Metamizole may falsely depress this assay. Reference Range HDL <40 mg/dL Low HDL Cholesterol HDL >or= 60 mg/dL High HDL Cholesterol Performed By: #### L 500.4050, L506.0400, L506.1000, L503.0105, L500.4100, L503.6550, L501.9985, L501.9520, L503.6030, L100.0100, L506.0250 #### [facility] [address] [place], [address] Cholesterol in LDL [Mass/Vol] 95 mg/dL Normal 0-130 [facility] Comment on above: Performed By: #### L 500.4050, L506.0400, L506.1000, L503.0105, L500.4100, L503.6550, L501.9985, L501.9520, L503.6030, L100.0100, L506.0250 #### [facility] [address] [place], [place], [phone] (098) Cholesterol in VLDL [Mass/Vol] 16 mg/dL Normal 5-40 [facility] Comment on above: Performed By: #### L 500.4050, L506.0400, L506.1000, L503.0105, L500.4100, L503.6550, L501.9985, L501.9520, L503.6030, L100.0100, L506.0250 #### [facility] [address] [place], [place], [phone] (905) Triglyceride [Mass/Vol] 82 mg/dL Normal [facility] Comment on above: Result Comment: The drugs N-Acetylcysteine and Metamizole may falsely depress this assay. Serum Triglycerides Reference Interval Normal <150 mg/dL Borderline high 150 - 199 mg/dL High 200 - 499 mg/dL Very High > or = 500 mg/dL Performed By: #### L 500.4050, L506.0400, L506.1000, L503.0105, L500.4100, L503.6550, L501.9985, L501.9520, L503.6030, L100.0100, L506.0250 #### [facility] [address] [place], [place], [id number] T4 Free Directon 07-22-2024 T4 FREE DIRECT 1.03 ng/dL Normal 0.76-1.46 [facility] Comment on above: Order Comment: N Performed By: #### L 3100.5475, L100.0100, L501.6710, L505.7010, L101.9900, L4600.0100, L501.1400 #### [facility] [address] [place], [address] Thyroid Stim Hormone (TSH)on 07-22-2024 TSH 1.460 uIU/mL Normal 0.358-3.740 [facility] Comment on above: Performed By: #### L 3100.5475, L100.0100, L501.6710, L505.7010, L101.9900, L4600.0100, L501.1400 #### [facility] [address] [place], [address] Vitamin B12on 07-22-2024 Cobalamin (Vitamin B12) [Mass/Vol] 893 pg/mL Normal 211-911 [facility] Comment on above: Performed By: #### L 3100.5475, L100.0100, L501.6710, L505.7010, L101.9900, L4600.0100, L501.1400 #### [facility] [address] [place], [address] Vitamin D,25 Hydroxyon 07-22 Vitamin D 25-OH 31.7 ng/mL Normal [facility] Comment on above: Result Comment: Merari min D 25(OH) Status Range Deficiency <20 ng/mL (50nmol/L) Insufficiency 20 - 30 ng/mL (50 - 75 nmol/L) Sufficiency 30 - 100 ng/mL (75 - 250 nmol/L) Toxicity >100 ng/mL (>250 nmol/L) Performed By: #### L 3100.5475, L100.0100, L501.6710, L505.7010, L101.9900, L4600.0100, L501.1400 #### [facility] [address] [place], [place], [phone] Chiropractic Reporton 2023 Chiropractic Report [facility] Chiropractic [facility] [place], [place] [address] OFFICE VISIT Date of Service: 05/26/24 MR#: [id number] Acct: [id number] Name: FRIDA WIN Rep #: [id number] : 1980 Provider: SHEYLA Lopez Age/Sex: 43/F Location: 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 Pain Quality: aching and dull Exam Musc [...] CPT Codes Procedures - Manipulation: 3-4 regions (06207) Procedures - Traction, Mechanical: Yes (38584) 05/26/24 1429 Date Priyanka Wilder Signature: Date (if applicable) CC: Normal [facility] Drugs of Abuse Screen, Urine Ordered By: Sharyn Patel on 03-13-2024 Amphetamines Ql (U) Positive Abnormal None Detected [facility] Comment on above: Urine Amphetamine Cu toff: < 1000 ng/mL = None Detected Barbiturates Screen Ql (U) Not detected None Detected [facility] Comment on above: Urine Barbiturates C utoff: < 200 ng/mL = None Detected Benzodiazepines Ql (U) Not detected None Detected [facility] Comment on above: Urine Benzodiazepine Cutoff: < 200 ng/mL = None Detected Buprenorphine Ql (U) Not detected None Detected [facility] Comment on above: Urine Buprenorphine Cutoff: < 5 ng/mL = None Detected Cannabinoids Screen Ql (U) Not detected None Detected [facility] Comment on above: Urine Cannabinoids C utoff: < 50 ng/mL = None Detected Cocaine Ql (U) Not detected None Detected [facility] Comment on above: Urine Cocaine Cutoff : < 300 ng/mL = None Detected fentaNYL+Norfentanyl Screen Ql (U) Not detected None Detected [facility] Comment on above: Urine Fentanyl Cutof f: < 1 ng/mL = None Detected Interpretation and review of laboratory results Abnormal [facility] Methadone Screen Ql (U) Not detected None Detected [facility] Comment on above: Urine Methadone Cuto ff: < 300 ng/mL = None Detected Opiates Screen Ql (U) Not detected None Detected [facility] Comment on above: Urine Opiates Cutoff : < 300 ng/mL = None Detected oxyCODONE Ql (U) Not detected None Detected [facility] Comment on above: Urine Oxycodone Cuto ff: < 100 ng/mL = None Detected Screen results shoul d be used for treatment purposes only. Specimen will be kept for 2 weeks, if the sample is adequate. Confirmation testing can be initiated by calling the lab within 2 weeks. [facility] Absolute lymphocyte counton 06-28-2023 Lymphocytes Auto (Unsp spec) [#/Vol] 2.66 10*3/uL 0.83-4.51 [facility] Basophil percentageon 2023 Basophils/100 WBC (Bld) 0.6 % 0-1 [facility] Bilirubin [Mass/Vol] 0.40 mg/dL 0.20-1.00 [facility] Comment on above: For patients on eltr ombopag therapy, use of Dimension [place] TBIL is not recommended. Chloride [Moles/Vol] 109 mmol/L 98-107 [facility] Cholesterol [Mass/Vol] 156 mg/dL <200 [facility] Comment on above: <200 mg/dL Desirable 200-240 mg/dL Borderline >240 mg/dL High Risk Eosinophils/100 WBC (Bld) 1.3 % 0-5 [facility] Glucose [Mass/Vol] 110 mg/dL 74-106 [facility] Comment on above: Fasting Glucose resu lt from 100 to 125 mg/dL suggests IMPAIRED HOMEOSTASIS per A.D.A. criteria. Neutrophils (Bld) [#/Vol] 7.4 10*3/uL 2.0-7.7 [facility] Neutrophils/100 WBC (Bld) 68.0 % 47-70 [facility] Potassium [Moles/Vol] 4.0 mmol/L 3.5-5.1 [facility] Protein [Mass/Vol] 7.6 g/dL 6.4-8.2 [facility] Sodium [Moles/Vol] 137 mmol/L 136-145 [facility] Triglyceride [Mass/Vol] 72 mg/dL <199 [facility] Comment on above: The drugs N-Acetylcy steine and Metamizole may falsely depress this assay.Serum Triglycerides Reference Interval Normal <150 mg/dL Borderline high 150 - 199 mg/dL High 200 - 499 mg/dL Very High > or = 500 mg/dL WBC (Bld) [#/Vol] 10.9 10*3/uL 4.4-11.0 [facility] Blood erythrocytes count (nu mber/volume)on 06-28-2023 RBC (Bld) [#/Vol] 5.83 10*6/uL 4.2-5.4 [facility] Blood hemoglobin measurement (mass/volume)on 06-28-2023 Hemoglobin (Bld) [Mass/Vol] 15.5 g/dL 12.0-15.0 [facility] Blood lymphocytes/100 leukoc yteson 06-28-2023 Lymphocytes/100 WBC (Bld) 24.5 % 19-41 [facility] Blood monocytes/100 leukocyt eson 06-28-2023 Monocytes/100 WBC (Bld) 5.0 % 0-10 [facility] Blood platelet mean volumeon 06-28-2023 Platelet mean volume (Bld) [Entitic vol] 10.1 fL 6.2-12.0 [facility] Determination of erythrocyte mean corpuscular volume (MCV)on 06-28-2023 MCV (RBC) [Entitic vol] 82.3 fL 81-99 [facility] Folic acid serumon Folate [Mass/Vol] 17.80 ng/mL 3.1-55.4 [facility] Hematocrit Auto (Bld) [Volum e fraction]on 06-28-2023 Hematocrit (Bld) [Volume fraction] 48.0 % 37-47 [facility] Iron measurement (mass/mass) on 06-28-2023 Iron (Unsp spec) [Mass/Mass] 39 ug/dL 50-170 [facility] - Chemistry and C hemistry - challengeon 06-28-2023 ALP [Catalytic activity/Vol] 80 U/L 45-117 [facility] ALT [Catalytic activity/Vol] 20 U/L 13-56 [facility] CO2 [Moles/Vol] 22.0 mmol/L 21.0-32.0 [facility] Cobalamin (Vitamin B12) [Mass/Vol] 382 pg/mL 211-911 [facility] Free T4 [Mass/Vol] 1.10 ng/dL 0.76-1.46 [facility] Globulin (S) [Mass/Vol] 3.9 g/dL 2.2-4.2 [facility] Urea nitrogen/Creatinine [Mass ratio] 12.0 mg/mg 10-20 [facility] - Hematology and Cell countson 06-28-2023 Erythrocyte distribution width (RBC) [Entitic vol] 46.8 fL 35.1-43.9 [facility] Erythrocyte distribution width (RBC) [Ratio] 15.9 % 11.6-14.6 [facility] Immature granulocytes/100 WBC (Bld) 0.600 % 0.0-0.9 [facility] Comment on above: IG% - Immature Granu locytes (promyelocytes, myelocytes and metamyelocytes) > 1% indicates that a LEFT SHIFT is Present. MCH (RBC) [Entitic mass] 26.6 pg 27.0-32.0 [facility] Nucleated RBC/100 WBC (Bld) [Ratio] 0 % 0-5 [facility] MCHC Auto (RBC) [Mass/Vol]on 06-28-2023 MCHC (RBC) [Mass/Vol] 32.3 g/dL 32-36 [facility] No Panel Informationon 06-28 Estimated GFR (MDRD) Amer 109 mL/min >60 [facility] Comment on above: GFR Calc Estimated GFR (MDRD) Non-Af Amer 90 mL/min >60 [facility] Comment on above: Non- GFR Calc Thyroid Stimulating Hormone (TSH) 1.28 uIU/mL 0.358-3.74 [facility] Total Iron Binding Capacity 348 ug/dL 250-450 [facility] Vitamin D 25-Hydroxy 61.3 ng/mL [facility] Comment on above: Vitamin D 25(OH) Sta tus Range Deficiency <20 ng/mL (50nmol/L) Insufficiency 20 - 30 ng/mL (50 - 75 nmol/L) Sufficiency 30 - 100 ng/mL (75 - 250 nmol/L) Toxicity >100 ng/mL (>250 nmol/L) Platelets bldon 06-28-2023 Platelets (Bld) [#/Vol] 373 10*3/uL 150-450 [facility] Serum or plasma albumin emanuel urement (mass/volume)on 06-28-2023 Albumin [Mass/Vol] 3.7 g/dL 3.2-5.0 [facility] Serum or plasma albumin/glob ulin mass ratioon 06-28-2023 Albumin/Globulin [Mass ratio] 0.9 {ratio} 0.9-2.4 [facility] Serum or plasma calcium emanuel urement (mass/volume)on 06-28-2023 Calcium [Mass/Vol] 9.3 mg/dL 8.5-10.1 [facility] [facility] Serum or plasma cholesterol in HDL measurement (mass/volume)on 06-28-2023 Cholesterol in HDL [Mass/Vol] 47 mg/dL >40 [facility] Comment on above: The drugs N-Acetylcy steine and Metamizole may falsely depress this assay. Reference Range HDL <40 mg/dL Low HDL Cholesterol HDL >or= 60 mg/dL High HDL Cholesterol Serum or plasma cholesterol in VLDL measurement (mass/volume)on 06-28-2023 Cholesterol in VLDL [Mass/Vol] 14 mg/dL 5-40 [facility] Serum or plasma creatinine m easurement (mass/volume)on 06-28-2023 Creatinine [Mass/Vol] 0.75 mg/dL 0.55-1.02 [facility] Comment on above: The validity of the calculated GFR & GFRAA in patients over 70 years has not been determined. Clinical correlation is essential. Serum or plasma ferritin breanne surement (mass/volume)on 06-28-2023 Ferritin [Mass/Vol] 193 ng/mL 8-252 [facility] Serum or plasma iron saturat ion measurement (mass fraction)on 06-28-2023 Iron saturation [Mass fraction] 11.2 % 15.0-55.0 [facility] Serum or plasma low density lipoprotein (LDL) cholesterol measurement (mass/volume)on 06-28-2023 Cholesterol in LDL [Mass/Vol] 95 mg/dL 0-130 [facility] Serum or plasma urea nitroge n measurement (mass/volume)on 06-28-2023 Urea nitrogen [Mass/Vol] 9 mg/dL 7-18 [facility] Thin prep Papanicolaou smear with manual screeningon 06-28-2023 Thin prep Papanicolaou smear with manual screening 11 U/L 15-37 [facility] Thin prep Papanicolaou smear with manual screening 6 5-15 [facility] Whole blood hemoglobin A1c/t otal hemoglobin ratio (mass fraction)on 06-28-2023 HbA1c (Bld) [Mass fraction] 5.5 % 3.8-5.6 [facility] Comment on above: Normal < 5.7 % Predi abetic 5.7 - 6.4 % Diabetic >or= 6.5 % Please note range changes. COVID-19 virus antigen assay Ordered By: Karlo Good on 03-21-2023 SARS-CoV-2 (COVID-19) Ag IA.rapid Ql (Resp) [facility] SARS-CoV-2 (COVID-19) Ag IA.rapid Ql (Resp) [facility] Absolute lymphocyte countOrd ered By: HEALTH ASSESSMENT on 03-05-2023 Lymphocytes Auto (Unsp spec) [#/Vol] 2.42 10*3/uL 0.83-4.51 [facility] Absolute reticulocyte countO rdered By: HEALTH ASSESSMENT on 03-05-2023 Reticulocytes (Bld) [#/Vol] 0.00 10*3/uL 0-5 [facility] Basophil percentageOrdered B y: HEALTH ASSESSMENT on 03-05-2023 Basophil percentage 1.9 mg/dL 2.5-4.9 [facility] Bilirubin [Mass/Vol] 0.20 mg/dL 0.20-1.00 [facility] Comment on above: For patients on eltr ombopag therapy, use of Dimension [place] TBIL is not recommended. Chloride [Moles/Vol] 110 mmol/L 98-107 [facility] Cholesterol [Mass/Vol] 157 mg/dL <200 [facility] Comment on above: <200 mg/dL Desirable 200-240 mg/dL Borderline >240 mg/dL High Risk Glucose [Mass/Vol] 96 mg/dL 74-106 [facility] LDH [Catalytic activity/Vol] 169 U/L 84-246 [facility] Neutrophils (Bld) [#/Vol] 6.6 10*3/uL 2.0-7.7 [facility] Potassium [Moles/Vol] 4.0 mmol/L 3.5-5.1 [facility] Protein [Mass/Vol] 7.6 g/dL 6.4-8.2 [facility] Sodium [Moles/Vol] 138 mmol/L 136-145 [facility] Triglyceride [Mass/Vol] 88 mg/dL <199 [facility] Comment on above: The drugs N-Acetylcy steine and Metamizole may falsely depress this assay.Serum Triglycerides Reference Interval Normal <150 mg/dL Borderline high 150 - 199 mg/dL High 200 - 499 mg/dL Very High > or = 500 mg/dL WBC (Bld) [#/Vol] 9.8 10*3/uL 4.4-11.0 [facility] Blood erythrocytes count (nu mber/volume)Ordered By: HEALTH ASSESSMENT on 03-05-2023 RBC (Bld) [#/Vol] 5.67 10*6/uL 4.2-5.4 [facility] Blood hemoglobin measurement (mass/volume)Ordered By: HEALTH ASSESSMENT on 03-05-2023 Hemoglobin (Bld) [Mass/Vol] 14.9 g/dL 12.0-15.0 [facility] Blood platelet mean volumeOr dered By: HEALTH ASSESSMENT on 03-05-2023 Platelet mean volume (Bld) [Entitic vol] 10.4 fL 6.2-12.0 [facility] COVID-19 virus antigen assay Ordered By: Karlo Good on 03-05-2023 SARS-CoV-2 (COVID-19) Ag IA.rapid Ql (Resp) [facility] SARS-CoV-2 (COVID-19) Ag IA.rapid Ql (Resp) [facility] Determination of erythrocyte mean corpuscular volume (MCV)Ordered By: HEALTH ASSESSMENT on 03-05-2023 MCV (RBC) [Entitic vol] 83.4 fL 81-99 [facility] Direct bilirubinOrdered By: HEALTH ASSESSMENT on 03-05-2023 Bilirubin.direct [Mass/Vol] 0.11 mg/dL 0.00-0.30 [facility] Hematocrit Auto (Bld) [Volum e fraction]Ordered By: HEALTH ASSESSMENT on 03-05-2023 Hematocrit (Bld) [Volume fraction] 47.3 % 37-47 [facility] Laboratory - Chemistry and C hemistry - challengeOrdered By: HEALTH ASSESSMENT on 03-05-2023 ALP [Catalytic activity/Vol] 89 U/L 45-117 [facility] ALT [Catalytic activity/Vol] 22 U/L 13-56 [facility] Cholesterol.total/Karlie sterol in HDL [Mass ratio] 3.70 {ratio} [facility] CO2 [Moles/Vol] 26.0 mmol/L 21.0-32.0 [facility] Globulin (S) [Mass/Vol] 4.0 g/dL 2.2-4.2 [facility] Urea nitrogen/Creatinine [Mass ratio] 11.4 mg/mg 10-20 [facility] Laboratory - Hematology and Cell countsOrdered By: HEALTH ASSESSMENT on 03-05-2023 Erythrocyte distribution width (RBC) [Entitic vol] 47.1 fL 35.1-43.9 [facility] Erythrocyte distribution width (RBC) [Ratio] 15.7 % 11.6-14.6 [facility] MCH (RBC) [Entitic mass] 26.3 pg 27.0-32.0 [facility] Nucleated RBC/100 WBC (Bld) [Ratio] 0 % 0-5 [facility] MCHC Auto (RBC) [Mass/Vol]Or dered By: HEALTH ASSESSMENT on 03-05-2023 MCHC (RBC) [Mass/Vol] 31.5 g/dL 32-36 [facility] No Panel InformationOrdered By: HEALTH ASSESSMENT on 03-05-2023 Estimated GFR (MDRD) Amer 103 mL/min >60 [facility] Comment on above: GFR Calc Estimated GFR (MDRD) Non-Af Amer 85 mL/min >60 [facility] Comment on above: Non- GFR Calc Platelets bldOrdered By: REGINO [facility] ASSESSMENT on 03-05-2023 Platelets (Bld) [#/Vol] 384 10*3/uL 150-450 [facility] Segmented neutrophils/100 WB C Auto (Bld)Ordered By: HEALTH ASSESSMENT on 03-05-2023 Segmented neutrophils/100 WBC (Bld) 67.7 % 47-70 [facility] Serum or plasma albumin emanuel urement (mass/volume)Ordered By: HEALTH ASSESSMENT on 03-05-2023 Albumin [Mass/Vol] 3.6 g/dL 3.2-5.0 [facility] Serum or plasma albumin/glob ulin mass ratioOrdered By: HEALTH ASSESSMENT on 03-05-2023 Albumin/Globulin [Mass ratio] 0.9 {ratio} 0.9-2.4 [facility] Serum or plasma calcium emanuel urement (mass/volume)Ordered By: HEALTH ASSESSMENT on 03-05-2023 Calcium [Mass/Vol] 8.8 mg/dL 8.5-10.1 [facility] Serum or plasma cholesterol in HDL measurement (mass/volume)Ordered By: HEALTH ASSESSMENT on 03-05-2023 Cholesterol in HDL [Mass/Vol] 43 mg/dL >40 [facility] Comment on above: The drugs N-Acetylcy steine and Metamizole may falsely depress this assay. Reference Range HDL <40 mg/dL Low HDL Cholesterol HDL >or= 60 mg/dL High HDL Cholesterol Serum or plasma cholesterol in VLDL measurement (mass/volume)Ordered By: HEALTH ASSESSMENT on 03-05-2023 Cholesterol in VLDL [Mass/Vol] 18 mg/dL 5-40 [facility] Serum or plasma creatinine m easurement (mass/volume)Ordered By: HEALTH ASSESSMENT on 03-05-2023 Creatinine [Mass/Vol] 0.79 mg/dL 0.55-1.02 [facility] Comment on above: The validity of the calculated GFR & GFRAA in patients over 70 years has not been determined. Clinical correlation is essential. Serum or plasma low density lipoprotein (LDL) cholesterol measurement (mass/volume)Ordered By: HEALTH ASSESSMENT on 03-05-2023 Cholesterol in LDL [Mass/Vol] 96 mg/dL 0-130 [facility] Serum or plasma urea nitroge n measurement (mass/volume)Ordered By: HEALTH ASSESSMENT on 03-05-2023 Urea nitrogen [Mass/Vol] 9 mg/dL 7-18 [facility] Serum or plasma uric acid me asurement (mass/volume)Ordered By: HEALTH ASSESSMENT on 03-05-2023 Urate [Mass/Vol] 4.1 mg/dL 2.6-6.0 [facility] Comment on above: The drugs N-Acetylcy steine and Metamizole may falsely depress this assay. Thin prep Papanicolaou smear with manual screeningOrdered By: HEALTH ASSESSMENT on 03-05-2023 Thin prep Papanicolaou smear with manual screening 13 U/L 15-37 [facility] Thin prep Papanicolaou smear with manual screening 2 5-15 [facility] Absolute lymphocyte counton 08-08-2022 Lymphocytes Auto (Unsp spec) [#/Vol] 2.69 10*3/uL 0.83-4.51 [facility] Basophil percentageon 2022 Basophils/100 WBC (Bld) 0.7 % 0-1 [facility] Bilirubin [Mass/Vol] 0.30 mg/dL 0.20-1.00 [facility] Comment on above: For patients on eltr ombopag therapy, use of Dimension [place] TBIL is not recommended. Chloride [Moles/Vol] 109 mmol/L 98-107 [facility] Cholesterol [Mass/Vol] 162 mg/dL <200 [facility] Comment on above: <200 mg/dL Desirable 200-240 mg/dL Borderline >240 mg/dL High Risk Eosinophils/100 WBC (Bld) 1.7 % 0-5 [facility] Glucose [Mass/Vol] 80 mg/dL 74-106 [facility] Neutrophils (Bld) [#/Vol] 5.7 10*3/uL 2.0-7.7 [facility] Neutrophils/100 WBC (Bld) 62.4 % 47-70 [facility] Potassium [Moles/Vol] 4.0 mmol/L 3.5-5.1 [facility] Protein [Mass/Vol] 7.7 g/dL 6.4-8.2 [facility] Sodium [Moles/Vol] 138 mmol/L 136-145 [facility] Triglyceride [Mass/Vol] 115 mg/dL <199 [facility] Comment on above: The drugs N-Acetylcy steine and Metamizole may falsely depress this assay.Serum Triglycerides Reference Interval Normal <150 mg/dL Borderline high 150 - 199 mg/dL High 200 - 499 mg/dL Very High > or = 500 mg/dL WBC (Bld) [#/Vol] 9.2 10*3/uL 4.4-11.0 [facility] Blood erythrocytes count (nu mber/volume)on 08-08-2022 RBC (Bld) [#/Vol] 5.64 10*6/uL 4.2-5.4 [facility] Blood hemoglobin measurement (mass/volume)on 08-08-2022 Hemoglobin (Bld) [Mass/Vol] 15.2 g/dL 12.0-15.0 [facility] Blood lymphocytes/100 leukoc yteson 08-08-2022 Lymphocytes/100 WBC (Bld) 29.2 % 19-41 [facility] Blood monocytes/100 leukocyt eson 08-08-2022 Monocytes/100 WBC (Bld) 5.6 % 0-10 [facility] Blood platelet mean volumeon 08-08-2022 Platelet mean volume (Bld) [Entitic vol] 9.8 fL 6.2-12.0 [facility] Determination of erythrocyte mean corpuscular volume (MCV)on 08-08-2022 MCV (RBC) [Entitic vol] 82.8 fL 81-99 [facility] Hematocrit Auto (Bld) [Volum e fraction]on 08-08-2022 Hematocrit (Bld) [Volume fraction] 46.7 % 37-47 [facility] Iron measurement (mass/mass) on 08-08-2022 Iron (Unsp spec) [Mass/Mass] 41 ug/dL 50-170 [facility] Laboratory - Chemistry and C hemistry - challengeon 08-08-2022 ALP [Catalytic activity/Vol] 94 U/L 45-117 [facility] ALT [Catalytic activity/Vol] 24 U/L 13-56 [facility] CO2 [Moles/Vol] 25.0 mmol/L 21.0-32.0 [facility] Free T4 [Mass/Vol] 1.00 ng/dL 0.76-1.46 [facility] Globulin (S) [Mass/Vol] 4.2 g/dL 2.2-4.2 [facility] Urea nitrogen/Creatinine [Mass ratio] 12.4 mg/mg 10-20 [facility] Laboratory - Hematology and Cell countson 08-08-2022 Erythrocyte distribution width (RBC) [Entitic vol] 45.9 fL 35.1-43.9 [facility] Erythrocyte distribution width (RBC) [Ratio] 15.1 % 11.6-14.6 [facility] Immature granulocytes/100 WBC (Bld) 0.400 % 0.0-0.9 [facility] Comment on above: IG% - Immature Granu locytes (promyelocytes, myelocytes and metamyelocytes) > 1% indicates that a LEFT SHIFT is Present. MCH (RBC) [Entitic mass] 27.0 pg 27.0-32.0 [facility] Nucleated RBC/100 WBC (Bld) [Ratio] 0 % 0-5 [facility] MCHC Auto (RBC) [Mass/Vol]on 08-08-2022 MCHC (RBC) [Mass/Vol] 32.5 g/dL 32-36 [facility] No Panel Informationon 08-08 Estimated GFR (MDRD) Amer 90 mL/min >60 [facility] Comment on above: GFR Calc Estimated GFR (MDRD) Non-Af Amer 75 mL/min >60 [facility] Comment on above: Non- GFR Calc Thyroid Stimulating Hormone (TSH) 1.42 uIU/mL 0.358-3.74 [facility] Total Iron Binding Capacity 253 ug/dL 250-450 [facility] Vitamin D 25-Hydroxy 28.2 ng/mL [facility] Comment on above: Vitamin D 25(OH) Sta tus Range Deficiency <20 ng/mL (50nmol/L) Insufficiency 20 - 30 ng/mL (50 - 75 nmol/L) Sufficiency 30 - 100 ng/mL (75 - 250 nmol/L) Toxicity >100 ng/mL (>250 nmol/L) Platelets bldon 08-08-2022 Platelets (Bld) [#/Vol] 358 10*3/uL 150-450 [facility] Serum or plasma albumin emanuel urement (mass/volume)on 08-08-2022 Albumin [Mass/Vol] 3.5 g/dL 3.2-5.0 [facility] Serum or plasma albumin/glob ulin mass ratioon 08-08-2022 Albumin/Globulin [Mass ratio] 0.8 {ratio} 0.9-2.4 [facility] Serum or plasma calcium emanuel urement (mass/volume)on 08-08-2022 Calcium [Mass/Vol] 9.7 mg/dL 8.5-10.1 [facility] Serum or plasma cholesterol in HDL measurement (mass/volume)on 08-08-2022 Cholesterol in HDL [Mass/Vol] 48 mg/dL >40 [facility] Comment on above: The drugs N-Acetylcy steine and Metamizole may falsely depress this assay. Reference Range HDL <40 mg/dL Low HDL Cholesterol HDL >or= 60 mg/dL High HDL Cholesterol Serum or plasma cholesterol in VLDL measurement (mass/volume)on 08-08-2022 Cholesterol in VLDL [Mass/Vol] 23 mg/dL 5-40 [facility] Serum or plasma creatinine m easurement (mass/volume)on 08-08-2022 Creatinine [Mass/Vol] 0.89 mg/dL 0.55-1.02 [facility] Comment on above: The validity of the calculated GFR & GFRAA in patients over 70 years has not been determined. Clinical correlation is essential. Serum or plasma ferritin breanne surement (mass/volume)on 08-08-2022 Ferritin [Mass/Vol] 212 ng/mL 8-252 [facility] Serum or plasma iron saturat ion measurement (mass fraction)on 08-08-2022 Iron saturation [Mass fraction] 16.2 % 15.0-55.0 [facility] Serum or plasma low density lipoprotein (LDL) cholesterol measurement (mass/volume)on 08-08-2022 Cholesterol in LDL [Mass/Vol] 91 mg/dL 0-130 [facility] Serum or plasma urea nitroge n measurement (mass/volume)on 08-08-2022 Urea nitrogen [Mass/Vol] 11 mg/dL 7-18 [facility] Thin prep Papanicolaou smear with manual screeningon 08-08-2022 Thin prep Papanicolaou smear with manual screening 18 U/L 15-37 [facility] Thin prep Papanicolaou smear with manual screening 4 5-15 [facility] COVID-19 virus antigen assay Ordered By: Dr. Good on 06-29-2022 SARS-CoV-2 (COVID-19) Ag IA.rapid Ql (Resp) [facility] No Panel Informationon 08-15 SARS-CoV-2 Antigen (Rapid) [facility] Work Phone: Provider Note - ED v3on [...] SIGNS: T PRBP SpO2O2(LPM) %FiO2 Method 03-Aug-2021 13:12:[id number] 96RA [facility] MDM/ED COURSE: 1) Left Acute SIJ dysfunction: [...] vital signs PROGRESS NOTE Procedure performed by: al General Contractor(s): (Conchita Genao, TOMMY-S) Findings: grossly normal anatomy [...] Updated: 03-Aug-2021 14:29 by Deonte Dsouza (PAC) [facility] No Panel Informationon 07-14 SARS-CoV-2 Antigen (Rapid) [facility] Work Phone: Absolute lymphocyte counton 07-01-2021 Lymphocytes Auto (Unsp spec) [#/Vol] 2.53 10*3/uL 0.83-4.51 [facility] Work Phone: Basophil percentageon 2021 Basophils/100 WBC (Bld) 0.6 % 0-1 [facility] Work Phone: Bilirubin [Mass/Vol] 0.30 mg/dL 0.20-1.00 [facility] Work Phone: Comment on above: For patients on eltr ombopag therapy, use of Dimension [place] TBIL is not recommended. Chloride [Moles/Vol] 103 mmol/L 98-107 [facility] Work Phone: Cholesterol [Mass/Vol] 154 mg/dL <200 [facility] Work Phone: Comment on above: <200 mg/dL Desirable 200-240 mg/dL Borderline >240 mg/dL High Risk Eosinophils/100 WBC (Bld) 1.2 % 0-5 [facility] Work Phone: Glucose [Mass/Vol] 103 mg/dL 74-106 [facility] Work Phone: Comment on above: Fasting Glucose resu lt from 100 to 125 mg/dL suggests IMPAIRED HOMEOSTASIS per A.D.A. criteria. Neutrophils (Bld) [#/Vol] 7.7 10*3/uL 2.0-7.7 [facility] Work Phone: Neutrophils/100 WBC (Bld) 68.8 % 47-70 [facility] Work Phone: Potassium [Moles/Vol] 4.0 mmol/L 3.5-5.1 [facility] Work Phone: Protein [Mass/Vol] 8.1 g/dL 6.4-8.2 [facility] Work Phone: [phone] Sodium [Moles/Vol] 136 mmol/L 136-145 [facility] Work Phone: [phone] Triglyceride [Mass/Vol] 86 mg/dL [facility] Work Phone: Comment on above: The drugs N-Acetylcy steine and Metamizole may falsely depress this assay.Serum Triglycerides Reference Interval Normal <150 mg/dL Borderline high 150 - 199 mg/dL High 200 - 499 mg/dL Very High > or = 500 mg/dL WBC (Bld) [#/Vol] 11.2 10*3/uL 4.4-11.0 [facility] Work Phone: Blood erythrocytes count (nu mber/volume)on 07-01-2021 RBC (Bld) [#/Vol] 5.70 10*6/uL 4.2-5.4 [facility] Work Phone: Blood hemoglobin measurement (mass/volume)on 07-01-2021 Hemoglobin (Bld) [Mass/Vol] 15.0 g/dL 12.0-15.0 [facility] Work Phone: [phone] Blood lymphocytes/100 leukoc yteson 07-01-2021 Lymphocytes/100 WBC (Bld) 22.7 % 19-41 [facility] Work Phone: [phone] Blood monocytes/100 leukocyt eson 07-01-2021 Monocytes/100 WBC (Bld) 6.3 % 0-10 [facility] Work Phone: [phone] Blood platelet mean volumeon 07-01-2021 Platelet mean volume (Bld) [Entitic vol] 9.9 fL 6.2-12.0 [facility] Work Phone: [phone] Determination of erythrocyte mean corpuscular volume (MCV)on 07-01-2021 MCV (RBC) [Entitic vol] 81.1 fL 81-99 [facility] Work Phone: [phone] Hematocrit Auto (Bld) [Volum e fraction]on 07-01-2021 Hematocrit (Bld) [Volume fraction] 46.2 % 37-47 [facility] Work Phone: [phone] Iron measurement (mass/mass) on 07-01-2021 Iron (Unsp spec) [Mass/Mass] 29 ug/dL 50-170 [facility] Work Phone: [phone] Laboratory - Chemistry and C hemistry - challengeon 07-01-2021 ALP [Catalytic activity/Vol] 85 U/L 45-117 [facility] Work Phone: [phone] ALT [Catalytic activity/Vol] 29 U/L 13-56 [facility] Work Phone: [phone] CO2 [Moles/Vol] 29.0 mmol/L 21.0-32.0 [facility] Work Phone: [phone] Cobalamin (Vitamin B12) [Mass/Vol] 388 pg/mL 211-911 [facility] Work Phone: [phone] Free T4 [Mass/Vol] 1.29 ng/dL 0.76-1.46 [facility] Work Phone: [phone] Globulin (S) [Mass/Vol] 4.1 g/dL 2.2-4.2 [facility] Work Phone: [phone] Urea nitrogen/Creatinine [Mass ratio] 19.4 mg/mg 10-20 [facility] Work Phone: [phone] Laboratory - Hematology and Cell countson 07-01-2021 Erythrocyte distribution width (RBC) [Entitic vol] 42.8 fL 35.1-43.9 [facility] Work Phone: [phone] Erythrocyte distribution width (RBC) [Ratio] 14.7 % 11.6-14.6 [facility] Work Phone: [phone] Immature granulocytes/100 WBC (Bld) 0.400 % 0.0-0.9 [facility] Work Phone: [phone] Comment on above: IG% - Immature Granu locytes (promyelocytes, myelocytes and metamyelocytes) > 1% indicates that a LEFT SHIFT is Present. MCH (RBC) [Entitic mass] 26.3 pg 27.0-32.0 [facility] Work Phone: [phone] Nucleated RBC/100 WBC (Bld) [Ratio] 0 % 0-5 [facility] Work Phone: [phone] MCHC Auto (RBC) [Mass/Vol]on 07-01-2021 MCHC (RBC) [Mass/Vol] 32.5 g/dL 32-36 [facility] Work Phone: [phone] No Panel Informationon 07-01 Estimated GFR (MDRD) Amer 115 mL/min >60 [facility] Work Phone: [phone] Comment on above: GFR Calc Estimated GFR (MDRD) Non-Af Amer 95 mL/min >60 [facility] Work Phone: Comment on above: Non- GFR Calc Thyroid Stimulating Hormone (TSH) 2.66 uIU/mL 0.358-3.74 [facility] Work Phone: Total Iron Binding Capacity 282 ug/dL 250-450 [facility] Work Phone: [phone] Vitamin D 25-Hydroxy 23.2 ng/mL [facility] Work Phone: Comment on above: Vitamin D 25(OH) Sta tus Range Deficiency <20 ng/mL (50nmol/L) Insufficiency 20 - 30 ng/mL (50 - 75 nmol/L) Sufficiency 30 - 100 ng/mL (75 - 250 nmol/L) Toxicity >100 ng/mL (>250 nmol/L) Platelets bldon 07-01-2021 Platelets (Bld) [#/Vol] 347 10*3/uL 150-450 [facility] Work Phone: [phone] Serum or plasma albumin emanuel urement (mass/volume)on 07-01-2021 Albumin [Mass/Vol] 4.0 g/dL 3.2-5.0 [facility] Work Phone: Serum or plasma albumin/glob ulin mass ratioon 07-01-2021 Albumin/Globulin [Mass ratio] 1.0 {ratio} 0.9-2.4 [facility] Work Phone: Serum or plasma calcium emanuel urement (mass/volume)on 07-01-2021 Calcium [Mass/Vol] 9.9 mg/dL 8.5-10.1 [facility] Work Phone: [phone] Serum or plasma cholesterol in HDL measurement (mass/volume)on 07-01-2021 Cholesterol in HDL [Mass/Vol] 44 mg/dL [facility] Work Phone: Comment on above: The drugs N-Acetylcy steine and Metamizole may falsely depress this assay. Reference Range HDL <40 mg/dL Low HDL Cholesterol HDL >or= 60 mg/dL High HDL Cholesterol Serum or plasma cholesterol in VLDL measurement (mass/volume)on 07-01-2021 Cholesterol in VLDL [Mass/Vol] 17 mg/dL 5-40 [facility] Work Phone: [phone] Serum or plasma creatinine m easurement (mass/volume)on 07-01-2021 Creatinine [Mass/Vol] 0.72 mg/dL 0.55-1.02 [facility] Work Phone: Comment on above: The validity of the calculated GFR & GFRAA in patients over 70 years has not been determined. Clinical correlation is essential. Serum or plasma ferritin breanne surement (mass/volume)on 07-01-2021 Ferritin [Mass/Vol] 171 ng/mL 8-252 [facility] Work Phone: Serum or plasma iron saturat ion measurement (mass fraction)on 07-01-2021 Iron saturation [Mass fraction] 10.3 % 15.0-55.0 [facility] Work Phone: Serum or plasma low density lipoprotein (LDL) cholesterol measurement (mass/volume)on 07-01-2021 Cholesterol in LDL [Mass/Vol] 93 mg/dL 0-130 [facility] Work Phone: Serum or plasma urea nitroge n measurement (mass/volume)on 07-01-2021 Urea nitrogen [Mass/Vol] 14 mg/dL 7-18 [facility] Work Phone: Thin prep Papanicolaou smear with manual screeningon 07-01-2021 Thin prep Papanicolaou smear with manual screening 12 U/L 15-37 [facility] Work Phone: [phone] Thin prep Papanicolaou smear with manual screening 4 5-15 [facility] Work Phone: [phone] Laboratory - Microbiology an d Antimicrobial susceptibilityon 06-26-2021 SARS-CoV-2 (COVID-19) RNA CARMITA+probe Ql (Unsp spec) Not detected [facility] Work Phone: [phone] SARS coronavirus RNA [Presen ce] in Unspecified specimen by CARMITA with probe detectionon 06-16-2021 SARS-CoV RNA CARMITA+probe Ql (Unsp spec) Not detected Not Detected [facility] Work Phone: Comment on above: This nucleic [...] of in vitro diagnostic tests for detection [id number] virus and/or diagnosis of COVID-19 infectionunder section [...] No Panel Informationon 06-14 SARS-CoV-2 Antigen (Rapid) [facility] Work Phone: CBC AND DIFFERENTIALon 11-17 DIFFERENTIAL SEE MANUAL DIFF Normal [facility] Comment on above: Performed By: #### C BCDF #### [address] [address] Erythrocyte distribution width (RBC) [Ratio] 14.6 % High 11.5 - 14.5 [facility] Comment on above: Performed By: #### C BCDF #### [address] [address] Hematocrit (Bld) [Volume fraction] 48.5 % High 36.0 - 46.0 [facility] Comment on above: Performed By: #### C BCDF #### [address] [address] Hemoglobin (Bld) [Mass/Vol] 15.8 g/dL Normal 12.0 - 16.0 [facility] Comment on above: Performed By: #### C BCDF #### [address] [address] MCHC (RBC) [Mass/Vol] 32.6 g/dL Normal 32.0 - 36.0 [facility] Comment on above: Performed By: #### C BCDF #### [address] [address] MCV (RBC) [Entitic vol] 83 fL Normal 80 - [address] [facility] Comment on above: Performed By: #### C BCDF #### [address] [address] NUCLEATED RBC 0.1 /100 WBC Normal [facility] Comment on above: Performed By: #### C BCDF #### [address] [address] Platelets (Bld) [#/Vol] 344 10*3/uL Normal 150 - 450 [facility] Comment on above: Performed By: #### C BCDF #### [place] [id number] RBC 5.87 x10E12/L High 4.00 - 5.20 [facility] Comment on above: Performed By: #### C BCDF #### [address] [address] WBC (Bld) [#/Vol] 10.4 10*3/uL Normal 4.4 - 11.3 [facility] Comment on above: Performed By: #### C BCDF #### [place] [id number] COMPREHENSIVE PANELon 2020 Albumin [Mass/Vol] 4.5 g/dL Normal 3.4 - 5.0 [facility] Comment on above: Performed By: #### C MP ####[address] [address] ALP [Catalytic activity/Vol] 72 U/L Normal 33 - 110 [facility] Comment on above: Performed By: #### C MP ####[place] [id number] ALT [Catalytic activity/Vol] 27 U/L Normal 7 - 45 [facility] Comment on above: Result Comment: Zhanna ents treated with Sulfasalazine may generate falsely decreased results for ALT. Performed By: #### C MP ####[address] [address] Anion gap [Moles/Vol] 10 mmol/L Normal 10 - [address] [facility] Comment on above: Performed By: #### C MP ####[address] [address] AST [Catalytic activity/Vol] 18 U/L Normal 9 - 39 [facility] Comment on above: Performed By: #### C MP ####[address] [address] Bilirubin [Mass/Vol] 0.5 mg/dL Normal 0.0 - 1.2 [facility] Comment on above: Performed By: #### C MP ####[place] [address] Calcium [Mass/Vol] 9.6 mg/dL Normal 8.6 - 10.3 [facility] Comment on above: Performed By: #### C MP ####[address] [address] Chloride [Moles/Vol] 101 mmol/L Normal 98 - 107 [facility] Comment on above: Performed By: #### C MP ####[address] [address] Creatinine [Mass/Vol] 0.66 mg/dL Normal 0.50 - 1.05 [facility] Comment on above: Performed By: #### C MP ####[address] [address] GFR- AM. >60 Normal >60 [facility] Comment on above: Result Comment: CALC ULATIONS OF ESTIMATED GFR ARE PERFORMED USING THE MDRD STUDY EQUATION FOR THE IDMS-TRACEABLE CREATININE METHODS. CLIN CHEM 2007;53:766-72 Performed By: #### C MP ####[address] [address] GFR-NON AM. >60 Normal >60 [facility] Comment on above: Performed By: #### C MP ####[address] [address] Glucose [Mass/Vol] 110 mg/dL High 74 - 99 [facility] Comment on above: Performed By: #### C MP ####[address] [address] HCO3 (Bld) [Moles/Vol] 30 mmol/L Normal 21 - 32 [facility] Comment on above: Performed By: #### C MP ####[address] [address] Potassium [Moles/Vol] 3.9 mmol/L Normal 3.5 - 5.[address] [facility] Comment on above: Performed By: #### C MP ####[address] [address] Protein [Mass/Vol] 7.4 g/dL Normal 6.4 - 8.2 [facility] Comment on above: Performed By: #### C MP ####[address] [address] Sodium [Moles/Vol] 137 mmol/L Normal 136 - 145 [facility] Comment on above: Performed By: #### C MP ####[address] [address] Urea nitrogen [Mass/Vol] 10 mg/dL Normal 6 - 23 [facility] Comment on above: Performed By: #### C MP ####[address] [address] CORONAVIRUS 2019 BY PCRon SARS-CoV-2 (COVID-19) RNA CARMITA+probe Ql (Unsp spec) Not detected Normal Not Detected [facility] Comment on above: Result Comment: . This test has received FDA Emergency Use Authorization (EUA) and has been verified by [facility]. This test is only authorized for the duration of time that circumstances exist to justify the authorization of the emergency use of in vitro diagnostic tests for the detection of SARS-CoV-2 virus and/or diagnosis of COVID-19 infection under section 564(b)(1) of the Act, 21 U.S.C. 360bbb-3(b)(1), unless the authorization is terminated or revoked sooner. [facility] is certified under CLIA-88 as qualified to perform high complexity testing. Testing is performed in the [facility] laboratory located at [address] [place] [address]. SARS-CoV-2/Flu/RSV Multiplex Test: Fact sheet for providers: https://www.fda.gov/media/095949/download Fact sheet for patients: https://www.fda.gov/media/912666/download Performed By: #### C OV19 ####[place] [address] Lab Specimen Source Nasal, Nasopharyngeal Normal [facility] Comment on above: Performed By: #### C OV19 ####[place] [address] Covid 19 Resultson 1 SARS-CoV-2 (COVID-19) RNA [...] You may also be contacted by the [facility] to see if any [...] or Naproxen (Aleve) can also be used. Hntl-zvj-hwdtvya cough and cold medicines can be used according to the instructions on the package. Some wmli-qth-fdtzglx medicines also contain acetaminophen. Make sure you [...] water are not available, use alcohol-based hand frame stylist. Avoid touching your eyes, nose, and mouth [...] 24 pattie (more content not included)... Normal [facility] LACTATEon 11-17-2020 Lactate [Moles/Vol] 0.9 mmol/L Normal 0.4 - 2.0 [facility] Comment on above: Result Comment: Abril puncture immediately after or during the administration of Metamizole may lead to falsely low results. Testing should be performed immediately prior to Metamizole dosing. Performed By: #### L ACT #### [facility] [address] [place] [address] LIPASEon 11-17-2020 Lipase [Catalytic activity/Vol] 8 U/L Low 9 - 82 [facility] Comment on above: Result Comment: Abril puncture immediately after or during the administration of Metamizole may lead to falsely low results. Testing should be performed immediately prior to Metamizole dosing. O-tsjeva-l-benzoquinone imine (metabolite of Acetaminophen) will generate erroneously low results in samples for patients that have taken toxic doses of acetaminophen. Performed By: #### L IPAS #### [address] [address] MANUAL DIFFERENTIALon 2020 % BAND NEUTROPHIL 2.0 % Normal 0.0 - 5.0 [facility] Comment on above: Performed By: #### M DIFF #### [address] [address] % BASOPHIL 0.0 % Normal 0.0 - 2.0 [facility] Comment on above: Performed By: #### M DIFF #### [address] [address] % EOSINOPHIL 1.0 % Normal 0.0 - 6.0 [facility] Comment on above: Performed By: #### M DIFF #### [address] [address] % LYMPH-ATYPICAL 5.0 % Normal 0.0 - 2.0 [facility] Comment on above: Performed By: #### M DIFF #### [address] [address] % LYMPHOCYTE 15.0 % Normal 13.0 - 44.0 [facility] Comment on above: Performed By: #### M DIFF #### [address] [address] % MONOCYTE 4.0 % Normal 2.0 - 10.0 [facility] Comment on above: Performed By: #### M DIFF #### [address] [address] % SEG NEUTROPHIL 73.0 % Normal 40.0 - 80.0 [facility] Comment on above: Result Comment: Perc ent differential counts (%) should be interpreted in the context of the absolute cell counts (cells/L). Performed By: #### M DIFF #### [address] [address] ANC 7.80 x10E9/L High 1.20 - 7.70 [facility] Comment on above: Performed By: #### M DIFF #### [address] [address] BAND NEUTROPHIL 0.21 x10E9/L Normal 0.00 - 0.70 [facility] Comment on above: Performed By: #### M DIFF #### [place] [address] BASOPHIL 0.00 x10E9/L Normal 0.00 - 0.10 [facility] Comment on above: Performed By: #### M DIFF #### [place] [address] EOSINOPHIL 0.10 x10E9/L Normal 0.00 - 0.70 [facility] Comment on above: Performed By: #### M DIFF #### [place] [address] LYMPH-ATYPICAL 0.52 x10E9/L High 0.00 - 0.50 [facility] Comment on above: Performed By: #### M DIFF #### [place] [address] LYMPHOCYTE 1.56 x10E9/L Normal 1.20 - 4.80 [facility] Comment on above: Performed By: #### M DIFF #### [place] [address] MONOCYTE 0.42 x10E9/L Normal 0.10 - 1.00 [facility] Comment on above: Performed By: #### M DIFF #### [place] [address] SEG NEUTROPHIL 7.59 x10E9/L High 1.20 - 7.00 [facility] Comment on above: Performed By: #### M DIFF #### [place] [address] Provider Note - ED v2on 060 Provider [...] documented data. SIGNIFICANT EVENTS: No documented data. JOURNEYMAN MEAT CUTTER: Is : no(1) Is : no(1) REVIEW OF SYSTEMS GASTROINTESTINAL: POSITIVE for: abdominal pain, nausea and vomiting; All other systems reviewed and are negative RESULTS/VITAL SIGNS RESULTS: Radiology Results: Impression: Borderline size of the liver. No focal hepatic lesion identified. Negative gallbladder. No biliary dilation. Subvisualization of the pancreas. Ultrasound Gallbladder [Nov 17 2020 10:40AM] VITAL SIGNS: T PRBP SpO2O2(LPM) %FiO2 Method 17-Nov-2020 09:45:[id number] 100 room air, no respiratory support 02-Jona-2021 07:01:[id number]/74 98 PHYSICAL EXAM CONSTITUTIONAL: Well appearing, well [...] From Triage - ED 17-Nov-2020 07:01 Normal [facility] RED CELL MORPHOLOGYon 2020 RBC morphology finding Nom (Bld) NORMAL Normal [facility] Comment on above: Performed By: #### M ORP2 #### [facility] [address] [place] [address] Triage - EDon 11-17-2020 Triage - ED [...] BMI (kg/m2): 32.812 Calculated BSA (m2) 1.93 Sylvester Coma Scale: Best Eye Response: (E4) spontaneous Best Motor Response: (M6) obeys commands Best Verbal Response: (V5) oriented Sylvester Score: 15 Allergies: no Mask applied: yes JOURNEYMAN ME[employer] C[employer]TER History: hysterectomy Patient has homicidal thoughts: no [...] 07:06 by Jose Alejandro Fontenot (ERIK) Normal [facility] UA MICROSCOPICon 11-17-2020 Mucus Ql (Urine sed) 3+ /LPF Normal [facility] Comment on above: Performed By: #### U AMIC #### [place] [address] RBC 1 /HPF Normal 0-5 [facility] Comment on above: Performed By: #### U AMIC #### [place] [address] SQUAMOUS EPITH. CELLS 6 /HPF Normal [facility] Comment on above: Performed By: #### U AMIC #### [place] [address] WBC 3 /HPF Normal 0-5 [facility] Comment on above: Performed By: #### U AMIC #### [place] [address] URINALYSISon 11-17-2020 Appearance (U) HAZY Normal CLEAR [facility] Comment on above: Performed By: #### U A #### [place] [address] Bilirubin Ql (U) Negative Normal NEGATIVE [facility] Comment on above: Performed By: #### U A #### [place] [address] Color (U) Yellow Normal STRAW,YELLO W [facility] Comment on above: Performed By: #### U A #### [address] [address] Glucose Ql (U) Negative Normal NEGATIVE [facility] Comment on above: Performed By: #### U A #### [address] [address] Hemoglobin Ql (U) Negative Normal NEGATIVE [facility] Comment on above: Performed By: #### U A #### [place] [address] Ketones Ql (U) Negative Normal NEGATIVE [facility] Comment on above: Performed By: #### U A #### [place] [address] Leukocyte esterase Test strip Ql (U) Negative Normal NEGATIVE [facility] Comment on above: Performed By: #### U A #### [place] [address] Nitrite Ql (U) Negative Normal NEGATIVE [facility] Comment on above: Performed By: #### U A #### [place] [address] pH (U) 7.0 [pH] Normal 5.0 - 8.0 [facility] Comment on above: Performed By: #### U A #### [place] [address] Protein Ql (U) 30(1+) Abnormal NEGATIVE [facility] Comment on above: Performed By: #### U A #### [place] [address] Specific gravity (U) [Rel density] 1.021 Normal 1.005 - 1.035 [facility] Comment on above: Performed By: #### U A #### [place] [id number] Urobilinogen (U) [Mass/Vol] mg/dL Normal 0.0 - 1.9 [facility] Comment on above: Performed By: #### U A #### [place] [id number] US GALLBLADDERon 11-17-2020 US GALLBLADDER Patient Name: FRIDA WIN STUDY: US GALLBLADDER; 11/17/2020 10:34 am INDICATION: stable. Nausea with vomiting. COMPARISON: None. ACCESSION NUMBER(S): [id number] ORDERING CLINICIAN: JENNY GIANG TECHNIQUE: Real-time sonographic [...] pancreas. Electronically signed by: SYDNIE ROSE MD [facility] CHEST PA AND LATERALon 02-13 CHEST PA AND LATERAL Final ReportAccession No: [id number] Performed: Feb 13 2018 9:12AMExamination: CHEST PA AND LATERALEXAMINATION: CHEST PA AND LATERALHISTORY: PhysicalTECHNIQUE: Frontal and lateral chest radiographs.COMPARISON: Chest radiographs dated 02/27/2012.FINDINGS: No focal consolidation, pleural effusion or pneumothorax. Thecardiomediastinal silhouette is normal in size. No acute osseousabnormality.IMPR ESSION:No acute cardiopulmonary process.Interpreting Physician: ESTELA LARIOS M.D.Trans: jankik : cc: Normal [facility] Lipid Panelon 02-13-2018 Cholesterol in HDL mass conc 42 mg/dL Invalid Interpretation Code 40 - 59 mg/dL [facility] Cholesterol in LDL mass conc 90 mg/dL Invalid Interpretation Code 10 - 150 mg/dL [facility] Cholesterol in VLDL mass conc 19 mg/dL Invalid Interpretation Code 5 - 40 mg/dL [facility] Cholesterol mass conc 150 mg/dL Invalid Interpretation Code 100 - 199 mg/dL [facility] Cholesterol.total/Karlie sterol in HDL mass ratio 3.6 {ratio} Invalid Interpretation Code [facility] Comment on above: Female Coronary Hear t Disease Risk Factor (CHDRF): Average risk= 4.4 1/2 Average risk= 3.3 2 times Average risk= 7.1 Triglyceride mass conc 96 mg/dL Invalid Interpretation Code 25 - 120 mg/dL [facility] Cholesterol in HDL mass conc 42 mg/dL Normal 40-59 [facility] Comment on above: Performed By: #### L IPID ####Unless otherwise noted, all testing performed by [address] [id number]: [id number] Director: Julio Olivares M.D. Cholesterol in LDL mass conc 90 mg/dL Normal 10-150 [facility] Comment on above: Performed By: #### L IPID ####Unless otherwise noted, all testing performed by [address] [phone]: [id number] Director: Julio Olivares M.D. Cholesterol in VLDL mass conc 19 mg/dL Normal 5-40 [facility] Comment on above: Performed By: #### L IPID ####Unless otherwise noted, all testing performed by [address] [id number]: [id number] Director: Juloi Olivares M.D. Cholesterol mass conc 150 mg/dL Normal 100-199 [facility] Comment on above: Performed By: #### L IPID ####Unless otherwise noted, all testing performed by [address] [phone]: [id number] Director: Julio Olivares M.D. Cholesterol.total/Karlie sterol in HDL mass ratio 3.6 {ratio} Normal 3.2-5.0 [facility] Comment on above: Result Comment: Balbir grullon Coronary Heart Disease Risk Factor (CHDRF):Average risk= 4.41/2 Average risk= 3.32 times Average risk= 7.1 Performed By: #### L IPID ####Unless otherwise noted, all testing performed by [address] [id number]: [id number] Director: Julio Olivares M.D. Triglyceride mass conc 96 mg/dL Normal 25-120 [facility] Comment on above: Performed By: #### L IPID ####Unless otherwise noted, all testing performed by [address] [phone]: [id number] Director: Julio Olivares M.D. Vital Signs Date Time Vital Sign Value Performing Clinician Facility 03-17-2025 14:30-0400 Body height 160 cm Mela Walker CNP Work Phone: [facility] 03-17-2025 14:30-0400 Body mass index (BMI) [Ratio] 43.61 kg/m2 Mela Walker QUALITY CONTROL INSPECTOR Work Phone: [facility] 03-17-2025 14:30-0400 Body temperature 98.01 [degF] Mela Walker QUALITY CONTROL INSPECTOR Work Phone: [facility] 03-17-2025 14:30-0400 Body weight 111.68 kg Mela Walker CNP Work Phone: [facility] 03-17-2025 14:30-0400 Diastolic blood pressure 79 mm[Hg] Mela Walker QUALITY CONTROL INSPECTOR Work Phone: [facility] 03-17-2025 14:30-0400 Heart rate 112 /min Mela Walker QUALITY CONTROL INSPECTOR Work Phone: [facility] 03-17-2025 14:30-0400 Respiratory rate 16 /min Mela Walker QUALITY CONTROL INSPECTOR Work Phone: [facility] 03-17-2025 14:30-0400 SaO2% (BldA) [Mass fraction] 96 % Mela Walker QUALITY CONTROL INSPECTOR Work Phone: [facility] 03-17-2025 14:30-0400 Systolic blood pressure 109 mm[Hg] Mela Walker QUALITY CONTROL INSPECTOR Work Phone: [facility] 01-29-2025 15:09-0400 Body weight 112.03 kg Mela Walker LEAF [employer] PICKER-C Work Phone: [facility] 01-29-2025 15:09-0400 Diastolic blood pressure 82 mm[Hg] Mela Walker [employer]AF [employer] P[employer]ER-C Work Phone: [facility] 01-29-2025 15:09-0400 Systolic blood pressure 136 mm[Hg] Mela Walker LEAF [employer] P[employer]ER-C Work Phone: [facility] 12-08-2024 11:00-0400 Body temperature 98 [degF] Mela Walker LEAF [employer] P[employer]ER-C Work Phone: [facility] 12-08-2024 11:00-0400 Diastolic blood pressure 57 mm[Hg] Mela Walker LEAF [employer] P[employer]ER-C Work Phone: [facility] 12-08-2024 11:00-0400 Heart rate 89 /min Mela Walker [employer] P[employer]ER[employer]C Work Phone: [facility] 12-08-2024 11:00-0400 Respiratory rate 18 /min Mela Walker [employer]AF [employer] P[employer]C Work Phone: [facility] 12-08-2024 11:00-0400 SaO2% (BldA) [Mass fraction] 99 % Mela Walker LEAF [employer] P[employer]ER-C Work Phone: [facility] 12-08-2024 11:00-0400 Systolic blood pressure 124 mm[Hg] Mela Walker LEAF [employer] PICKER-C Work Phone: [facility] 12-08-2024 07:11-0400 Body height 160.02 cm Mela Walker LEAF [employer] P[employer]ER-C Work Phone: [facility] 12-08-2024 07:11-0400 Body mass index (BMI) [Ratio] 43.4 kg/m2 Mela Walker [employer]C Work Phone: [facility] 12-08-2024 07:11-0400 Body weight 111.13 kg Mela Walker LEAF [employer] P[employer]ER-C Work Phone: [facility] 10-14-2024 15:07-0400 Body mass index (BMI) [Ratio] 43.7 kg/m2 Mela Walker LEAF [employer] P[employer]ER-C Work Phone: [facility] 10-14-2024 15:07-0400 Body weight 112.03 kg Mela Walker LEAF [employer] PICKER-C Work Phone: [facility] 10-14-2024 15:07-0400 Diastolic blood pressure 81 mm[Hg] Mela Walker LEAF [employer] PICKER-C Work Phone: [facility] 10-14-2024 15:07-0400 Systolic blood pressure 137 mm[Hg] Mela Walker LEAF [employer] P[employer]ER-C Work Phone: [facility] 03-13-2024 13:55-0400 Body height 160 cm Mela Walker QUALITY CONTROL INSPECTOR Work Phone: [facility] 03-13-2024 13:55-0400 Body mass index (BMI) [Ratio] 41.06 kg/m2 Mela Walker QUALITY CONTROL INSPECTOR Work Phone: [facility] 03-13-2024 13:55-0400 Body temperature 98.29 [degF] Mela Walker QUALITY CONTROL INSPECTOR Work Phone: [facility] 03-13-2024 13:55-0400 Body weight 105.14 kg Mela Walker QUALITY CONTROL INSPECTOR Work Phone: [facility] 03-13-2024 13:55-0400 Diastolic blood pressure 81 mm[Hg] Mela Walker QUALITY CONTROL INSPECTOR Work Phone: [facility] 03-13-2024 13:55-0400 Heart rate 86 /min Mela Walker QUALITY CONTROL INSPECTOR Work Phone: [facility] 03-13-2024 13:55-0400 Respiratory rate 16 /min Mela Walker QUALITY CONTROL INSPECTOR Work Phone: [facility] 03-13-2024 13:55-0400 SaO2% (BldA) [Mass fraction] 97 % Mela Walker QUALITY CONTROL INSPECTOR Work Phone: [facility] 03-13-2024 13:55-0400 Systolic blood pressure 120 mm[Hg] Mela Walker QUALITY CONTROL INSPECTOR Work Phone: [facility] 04-04-2023 10:32-0400 Body height 160 cm Mela Walker QUALITY CONTROL INSPECTOR Work Phone: [facility] 04-04-2023 10:32-0400 Body mass index (BMI) [Ratio] 37.24 kg/m2 Mela Walker QUALITY CONTROL INSPECTOR Work Phone: [facility] 04-04-2023 10:32-0400 Body temperature 98.1 [degF] Mela Walker QUALITY CONTROL INSPECTOR Work Phone: [facility] 04-04-2023 10:32-0400 Body weight 95.35 kg Mela Walker QUALITY CONTROL INSPECTOR Work Phone: [facility] 04-04-2023 10:32-0400 Diastolic blood pressure 83 mm[Hg] Mela Walker QUALITY CONTROL INSPECTOR Work Phone: [facility] 04-04-2023 10:32-0400 Heart rate 106 /min Mela Walker QUALITY CONTROL INSPECTOR Work Phone: [facility] 04-04-2023 10:32-0400 SaO2% (BldA) [Mass fraction] 93 % Mela Walker QUALITY CONTROL INSPECTOR Work Phone: [facility] 04-04-2023 10:32-0400 Systolic blood pressure 125 mm[Hg] Mela Walker QUALITY CONTROL INSPECTOR Work Phone: [facility] 03-22-2023 15:43-0400 Body height 160.[address] Priyanka Leonardo Work Phone: [facility] 03-22-2023 15:43-0400 Body mass index (BMI) [Ratio] 36.8 kg/m2 Dr. Priyanka Leonardo Work Phone: [facility] 03-22-2023 15:43-0400 Body weight 94.[address] Priyanka Leonardo Work Phone: [facility] 03-22-2023 15:43-0400 Diastolic blood pressure 80 mm[Hg] Dr. Priyanka Leonardo Work Phone: [facility] 03-22-2023 15:43-0400 Systolic blood pressure 122 mm[Hg] Dr. Priyanka Leonardo Work Phone: [facility] 07-19-2022 15:01-0500 Body height 160 cm Mela Walker QUALITY CONTROL INSPECTOR Work Phone: [facility] 07-19-2022 15:01-0500 Body mass index (BMI) [Ratio] 37.75 kg/m2 Melaulysses Walker QUALITY CONTROL INSPECTOR Work Phone: [facility] 07-19-2022 15:01-0500 Body temperature 98.29 [degF] Mela Walker QUALITY CONTROL INSPECTOR Work Phone: [facility] 07-19-2022 15:01-0500 Body weight 96.66 kg Mela Walker QUALITY CONTROL INSPECTOR Work Phone: [facility] 07-19-2022 15:01-0500 Diastolic blood pressure 80 mm[Hg] Mela Walker QUALITY CONTROL INSPECTOR Work Phone: [facility] 07-19-2022 15:01-0500 Heart rate 106 /min Mela Walker QUALITY CONTROL INSPECTOR Work Phone: [facility] 07-19-2022 15:01-0500 Respiratory rate 16 /min Mela Walker QUALITY CONTROL INSPECTOR Work Phone: [facility] 07-19-2022 15:01-0500 SaO2% (BldA) [Mass fraction] 98 % Mela Walker QUALITY CONTROL INSPECTOR Work Phone: [facility] 07-19-2022 15:01-0500 Systolic blood pressure 115 mm[Hg] Mela Walker QUALITY CONTROL INSPECTOR Work Phone: [facility] 12-16-2021 00:08-0400 Body mass index (BMI) [Ratio] 37.6 kg/m2 [facility] Work Phone: 10-16-2021 00:22-0400 Body mass index (BMI) [Ratio] 37.6 kg/m2 [facility] Work Phone: 09-16-2021 00:21-0400 Body mass index (BMI) [Ratio] 37.6 kg/m2 [employer] Bethanie Redick Work Phone: [facility] Work Phone: 08-16-2021 00:20-0500 Body mass index (BMI) [Ratio] 37.6 kg/m2 [facility] Work Phone: 08-15-2021 23:20-0500 Body mass index (BMI) [Ratio] 37.6 kg/m2 [employer] Bethanie Redick Work Phone: [facility] Work Phone: 08-03-2021 15:12-0500 Body height 160 cm No Pcp Required [facility] 08-03-2021 15:12-0500 Body temperature 96.98 [degF] No Pcp Required [facility] 08-03-2021 15:12-0500 Diastolic blood pressure 67 mm[Hg] No Pcp Required [facility] 08-03-2021 15:12-0500 Heart rate 96 /min No Pcp Required [facility] 08-03-2021 15:12-0500 Respiratory rate 16 /min No Pcp Required [facility] 08-03-2021 15:12-0500 SaO2% (BldA) [Mass fraction] 96 % No Pcp Required [facility] 08-03-2021 15:12-0500 Systolic blood pressure 124 mm[Hg] No Pcp Required [facility] 07-18-2021 23:16-0500 Body mass index (BMI) [Ratio] 37.6 kg/m2 [employer] Bethanie Redick Work Phone: [facility] Work Phone: 06-26-2021 12:41-0500 Body temperature 97.3 [degF] [employer] Bethanie Redick Work Phone: [facility] Work Phone: 06-26-2021 12:41-0500 Diastolic blood pressure 80 mm[Hg] [employer] Bethanie Redick Work Phone: [facility] Work Phone: 06-26-2021 12:41-0500 Heart rate 108 /min [employer] Bethanie Redick Work Phone: [facility] Work Phone: 06-26-2021 12:41-0500 Respiratory rate 15 /min [employer] Bethanie Redick Work Phone: [facility] Work Phone: 06-26-2021 12:41-0500 SaO2% (BldA) [Mass fraction] 99 % [employer] Bethanie Redick Work Phone: [facility] Work Phone: 06-26-2021 12:41-0500 Systolic blood pressure 150 mm[Hg] [employer] Bethanie Redick Work Phone: [facility] Work Phone: 06-17-2021 23:10-0500 Body mass index (BMI) [Ratio] 37.6 kg/m2 [employer] Bethanie Redick Work Phone: [facility] Work Phone: 05-17-2021 23:06-0500 Body mass index (BMI) [Ratio] 37.6 kg/m2 [employer] Bethanie Redick Work Phone: [facility] Work Phone: 04-15-2021 08:07-0400 Body height 160 cm Mela Walker [facility] Work Phone: [facility] 04-15-2021 08:07-0400 Body mass index (BMI) [Ratio] 38.6 kg/m2 Mela Walker QUALITY CONTROL INSPECTOR Work Phone: [facility] 04-15-2021 08:07-0400 Body temperature 98.1 [degF] Mela Walker QUALITY CONTROL INSPECTOR Work Phone: [facility] 04-15-2021 08:07-0400 Body weight 98.84 kg Mela Walker QUALITY CONTROL INSPECTOR Work Phone: [facility] 04-15-2021 08:07-0400 Diastolic blood pressure 82 mm[Hg] Mela Walker QUALITY CONTROL INSPECTOR Work Phone: [facility] 04-15-2021 08:07-0400 Heart rate 83 /min Mela Walker QUALITY CONTROL INSPECTOR Work Phone: [facility] 04-15-2021 08:07-0400 Respiratory rate 16 /min Mela Walker QUALITY CONTROL INSPECTOR Work Phone: [facility] 04-15-2021 08:07-0400 SaO2% (BldA) [Mass fraction] 97 % Mela Walker QUALITY CONTROL INSPECTOR Work Phone: [facility] 04-15-2021 08:07-0400 Systolic blood pressure 117 mm[Hg] Mela Walker QUALITY CONTROL INSPECTOR Work Phone: [facility] 12-08-2020 10:48-0400 Body height 160 cm Mela Walker QUALITY CONTROL INSPECTOR Work Phone: [facility] 12-08-2020 10:48-0400 Body mass index (BMI) [Ratio] 38.3 kg/m2 Mela Walker QUALITY CONTROL INSPECTOR Work Phone: [facility] 12-08-2020 10:48-0400 Body temperature 98.6 [degF] Mela Walker QUALITY CONTROL INSPECTOR Work Phone: [facility] 12-08-2020 10:48-0400 Body weight 98.07 kg Mela Walker QUALITY CONTROL INSPECTOR Work Phone: [facility] 12-08-2020 10:48-0400 Diastolic blood pressure 85 mm[Hg] Mela Walker QUALITY CONTROL INSPECTOR Work Phone: [facility] 12-08-2020 10:48-0400 Heart rate 103 /min Mela Walker QUALITY CONTROL INSPECTOR Work Phone: [facility] 12-08-2020 10:48-0400 Respiratory rate 16 /min Mela Walker QUALITY CONTROL INSPECTOR Work Phone: [facility] 12-08-2020 10:48-0400 SaO2% (BldA) [Mass fraction] 98 % Mela Walker QUALITY CONTROL INSPECTOR Work Phone: [facility] 12-08-2020 10:48-0400 Systolic blood pressure 128 mm[Hg] Mela Walker QUALITY CONTROL INSPECTOR Work Phone: [facility] 11-17-2020 13:45-0400 Diastolic blood pressure 64 mm[Hg] No Pcp Required [facility] 11-17-2020 13:45-0400 Heart rate 85 /min No Pcp Required [facility] 11-17-2020 13:45-0400 Respiratory rate 16 /min No Pcp Required [facility] 11-17-2020 13:45-0400 SaO2% (BldA) [Mass fraction] 100 % No Pcp Required [facility] 11-17-2020 13:45-0400 Systolic blood pressure 124 mm[Hg] No Pcp Required [facility] 11-17-2020 09:01-0400 Body height 160 cm No Pcp Required [facility] 11-17-2020 09:01-0400 Body temperature 96.98 [degF] No Pcp Required [facility] 11-17-2020 09:01-0400 Body weight 84 kg No Pcp Required [facility] 06-01-2020 11:54-0500 BMI (Body Mass Index) 37.36 kg/m2 Barbara Cruz [facility] 06-01-2020 11:54-0500 Body Temperature 97.59 [degF] Barbara Cruz [facility] 06-01-2020 11:54-0500 Body weight 95.66 kg Barbara Cruz [facility] 06-01-2020 11:54-0500 BP Diastolic 84 mm[Hg] Barbara Cruz [facility] 06-01-2020 11:54-0500 BP Systolic 127 mm[Hg] Barbara Cruz [facility] 06-01-2020 11:54-0500 Height 160 cm [facility] 06-01-2020 11:54-0500 Pulse (Heart Rate) 98 /min [facility] 06-01-2020 11:54-0500 Pulse Oximetry 98 % [facility] 06-01-2020 11:54-0500 Respiratory Rate 18 /min [facility] 01-09-2020 10:23-0400 BMI (Body Mass Index) 36.88 kg/m2 [facility] 01-09-2020 10:23-0400 Body Temperature 97.81 [degF] Barbara [facility] 01-09-2020 10:23-0400 Body weight 94.44 kg Barbara [facility] 01-09-2020 10:23-0400 BP Diastolic 80 mm[Hg] Barbara [facility] 01-09-2020 10:23-0400 BP Systolic 116 mm[Hg] Barbara [facility] 01-09-2020 10:23-0400 Pulse (Heart Rate) 94 /min Barbara [facility] 01-09-2020 10:23-0400 Pulse Oximetry 98 % Barbara [facility] 01-09-2020 10:23-0400 Respiratory Rate 16 /min Barbara [facility] 06-20-2019 08:21-0500 BMI (Body Mass Index) 36.12 kg/m2 Barbara [facility] 06-20-2019 08:21-0500 Body Temperature 97.9 [degF] [facility] 06-20-2019 08:21-0500 Body weight 92.49 kg [facility] 06-20-2019 08:21-0500 BP Diastolic 79 mm[Hg] [facility] 06-20-2019 08:21-0500 BP Systolic 131 mm[Hg] Barbara [facility] 06-20-2019 08:21-0500 Pulse (Heart Rate) 101 /min Barbara [facility] 06-20-2019 08:21-0500 Pulse Oximetry 96 % [facility] 06-20-2019 08:21-0500 Respiratory Rate 18 /min [facility] 02-21-2019 13:38-0400 BMI (Body Mass Index) 35.53 kg/m2 Barbara [facility] 02-21-2019 13:38-0400 Body Temperature 97.5 [degF] Barbara Cruz [facility] 02-21-2019 13:38-0400 Body weight 90.99 kg Barbara Cruz [facility] 02-21-2019 13:38-0400 BP Diastolic 79 mm[Hg] Barbara Cruz [facility] 02-21-2019 13:38-0400 BP Systolic 112 mm[Hg] Barbara Cruz [facility] 02-21-2019 13:38-0400 Height 160 cm Barbara [facility] 02-21-2019 13:38-0400 Pulse (Heart Rate) 84 /min [facility] 02-21-2019 13:38-0400 Pulse Oximetry 97 % Barbara [facility] 11-13-2018 14:34-0400 BMI (Body Mass Index) 33.8 kg/m2 Barbara [facility] 11-13-2018 14:34-0400 Body Temperature 98.1 [degF] Barbara [facility] 11-13-2018 14:34-0400 BP Diastolic 79 mm[Hg] Barbara [facility] 11-13-2018 14:34-0400 BP Systolic 119 mm[Hg] Barbara [facility] 11-13-2018 14:34-0400 Pulse (Heart Rate) 81 /min Barbara [facility] 11-13-2018 14:34-0400 Pulse Oximetry 98 % Barbara [facility] 11-13-2018 14:34-0400 Respiratory Rate 18 /min Barbara [facility] 11-13-2018 14:34-0400 Weight 90.72 kg Barbara [facility] 08-09-2018 08:24-0500 BMI (Body Mass Index) 34.22 kg/m2 Barbara [facility] 08-09-2018 08:24-0500 Body Temperature 98.4 [degF] Barbara [facility] 08-09-2018 08:24-0500 BP Diastolic 82 mm[Hg] Barbara [facility] 08-09-2018 08:24-0500 BP Systolic 125 mm[Hg] Barbara [facility] 08-09-2018 08:24-0500 Height 163.8 cm Barbara [facility] 08-09-2018 08:24-0500 Pulse (Heart Rate) 92 /min Barbara [facility] 08-09-2018 08:24-0500 Pulse Oximetry 94 % Barbara Castillo [facility] 08-09-2018 08:24-0500 Respiratory Rate 18 /min Barbara Castillo [facility] 08-09-2018 08:24-0500 Weight 91.85 kg Barbara Castillo [facility] Encounters Encounter Date Encounter Type Care Provider Facility Start: 04-15-2025 End: 04-15-2025 Refill Mela Walker QUALITY CONTROL INSPECTOR Work Phone: [facility] Comment on above: Intractable migraine with aura without status migrainosus Start: 03-23-2025 End: 03-23-2025 Patient encounter procedure Kevin Brand [facility] Work Phone: Start: 03-23-2025 End: 03-23-2025 ambulatory Mela Walker [employer] Work Phone: [facility] Start: 03-17-2025 End: 03-17-2025 Periodic preventive med est patient 40-64yrs Mela Walker QUALITY CONTROL INSPECTOR Work Phone: [facility] Physician [facility] Comment on above: Well adult exam (Yuki lizzie Dx); Screening mammogram for breast cancer; Attention deficit hyperactivity disorder (ADHD), predominantly inattentive type Start: 03-17-2025 End: 03-17-2025 ambulatory MELA WALKER [facility] Start: 03-17-2025 End: 03-17-2025 Patient encounter status Mela Walker QUALITY CONTROL INSPECTOR Work Phone: [facility] Start: 03-09-2025 End: 03-10-2025 Refill Mela Walker QUALITY CONTROL INSPECTOR Work Phone: [facility] Comment on above: Depression, unspecif ied depression type Start: 02-05-2025 End: 02-05-2025 Refill Mela Walker QUALITY CONTROL INSPECTOR Work Phone: [facility] Comment on above: Depression, unspecif ied depression type Start: 02-02-2025 End: 02-03-2025 Refill Mela Walker QUALITY CONTROL INSPECTOR Work Phone: [facility] Start: 01-29-2025 End: 01-29-[address] Priyanka Leonardo DC -[facility] Work Phone: Start: 01-29-2025 End: 01-29-2025 ambulatory Melaulysses Walker [employer] Work Phone: -[facility] Start: 01-23-2025 Registered [employer] [facility] Start: 01-23-2025 End: 01-23-2025 ambulatory Mela Walker [employer] Work Phone: -Laboratory Start: 01-23-2025 End: 01-23-2025 Patient encounter procedure Kirk Danielson PA -Laboratory Work Phone: Start: 01-23-2025 End: 01-23-2025 ambulatory Mela Walker Facility:[facility] Start: 01-12-2025 End: 01-12-2025 ambulatory Mela Walker [employer] Work Phone: -Laboratory Start: 01-12-2025 End: 01-12-2025 Patient encounter procedure Mela Walker [employer] -Laboratory Work Phone: Start: 01-12-2025 End: 01-12-2025 ambulatory Mela Walker Facility:[facility] Start: 01-08-2025 End: 01-08-2025 Refill Mela Walker QUALITY CONTROL INSPECTOR Work Phone: [facility] Comment on above: Attention deficit hy peractivity disorder (ADHD), predominantly inattentive type Start: 12-10-2024 ambulatory MELAUlysses WALKER [facility] Ambulatory Start: 12-08-2024 End: 12-08-2024 Emergency department patient visit Mela Walker [employer] Work Phone: -Emergency Department Work Phone: Start: 10-14-2024 End: 10-14-2024 Patient encounter procedure Uyen Marcano [employer] -[facility] Work Phone: Start: 10-14-2024 End: 10-14-2024 ambulatory Mela Walker Facility:[facility] Start: 10-13-2024 End: 10-13-2024 Refill Mela Lima Walker QUALITY CONTROL INSPECTOR Work Phone: [facility] Comment on above: Attention deficit hy peractivity disorder (ADHD), predominantly inattentive type Start: 09-10-2024 End: 09-10-2024 Telemedicine consultation with patient Mela Walker QUALITY CONTROL INSPECTOR Work Phone: [facility] Comment on above: Attention deficit hy peractivity disorder (ADHD), predominantly inattentive type (Primary Dx); Depression, unspecified depression type Start: 09-10-2024 End: 09-10-2024 ambulatory MELA LEA WALKER [facility] Start: 08-08-2024 End: 08-08-2024 Refill Mela Lima Walker QUALITY CONTROL INSPECTOR Work Phone: [facility] Comment on above: Vitamin D deficiency ; Depression, unspecified depression type; Attention deficit hyperactivity disorder (ADHD), predominantly inattentive type Start: 07-30-2024 End: 07-30-2024 ambulatory Mela Walker Facility:[facility] Start: 07-24-2024 End: 07-24-2024 Refill Mela Lima Walker QUALITY CONTROL INSPECTOR Work Phone: [facility] Comment on above: Attention deficit hy peractivity disorder (ADHD), predominantly inattentive type Start: 07-22-2024 End: 07-22-2024 ambulatory Mela Walker Facility:[facility] Start: 06-20-2024 End: 06-20-2024 Refill Mela Lea Walker QUALITY CONTROL INSPECTOR Work Phone: [facility] Comment on above: Intractable migraine with aura without status migrainosus; Attention deficit hyperactivity disorder (ADHD), predominantly inattentive type Start: 05-26-2024 End: 05-26-2024 ambulatory Mela Walker Facility:[facility] Start: 03-25-2024 ambulatory MELA LIMA WALKER [facility] Ambulatory Start: 03-13-2024 End: 03-13-2024 Patient encounter status Mela Lima Walker QUALITY CONTROL INSPECTOR Work Phone: [facility] Start: 03-13-2024 End: 03-13-2024 Periodic preventive med est patient 40-64yrs Mela Walker QUALITY CONTROL INSPECTOR Work Phone: [facility] Comment on above: Well adult exam (Yuki lizzie Dx); Attention deficit hyperactivity disorder (ADHD), predominantly inattentive type; Therapeutic drug monitoring; Screening mammogram for breast cancer; Morbid obesity with BMI of 40.0-44.9, adult (HCC); Dyslipidemia, goal LDL below 100 Start: 02-08-2024 End: 02-11-2024 Documentation procedure Mela Walker QUALITY CONTROL INSPECTOR Work Phone: [facility] Start: 01-07-2024 End: 01-07-2024 Refill Mela Walker QUALITY CONTROL INSPECTOR Work Phone: [facility] Comment on above: Attention deficit hy peractivity disorder (ADHD), predominantly inattentive type Start: 10-12-2023 End: 10-12-2023 Office outpatient visit 25 minutes Mela Walker QUALITY CONTROL INSPECTOR Work Phone: [facility] Comment on above: Attention deficit hy peractivity disorder (ADHD), predominantly inattentive type; Depression, unspecified depression type; Intractable migraine with aura without status migrainosus Start: 10-03-2023 Refill Mela lyons QUALITY CONTROL INSPECTOR Work Phone: [facility] Comment on above: Attention deficit hy peractivity disorder (ADHD), predominantly inattentive type Start: 07-05-2023 End: 07-05-2023 Office outpatient visit 25 minutes Mela Walker QUALITY CONTROL INSPECTOR Work Phone: [facility] Comment on above: Attention deficit hy peractivity disorder (ADHD), predominantly inattentive type; Vitamin D deficiency; Iron deficiency; Intractable migraine with aura without status migrainosus; Depression, unspecified depression type Start: 06-28-2023 End: 06-28-[address] Priyanka Leonardo Work Phone: [facility] Work Phone: Start: 06-28-2023 End: 06-28-[address] Priyanka Leonardo Work Phone: [facility]Laboratory Work Phone: Start: 04-18-2023 End: 04-18-[address] Priyanka Leonardo Work Phone: [facility] Work Phone: Start: 04-04-2023 End: 04-04-2023 Patient encounter status Mela Walker QUALITY CONTROL INSPECTOR Work Phone: [facility] Start: 04-04-2023 End: 04-04-2023 Periodic preventive med est patient 40-64yrs Mela Walker QUALITY CONTROL INSPECTOR Work Phone: [facility] Comment on above: Well adult exam (Yuki lizzie Dx); Iron deficiency; Attention deficit hyperactivity disorder (ADHD), predominantly inattentive type Start: 03-22-2023 End: 03-22-[address] Priyanka Leonardo Work Phone: [facility] Work Phone: Start: 03-21-2023 End: 04-17-[address] Priyanka Leonardo Work Phone: [facility] Work Phone: Start: 03-21-2023 End: 04-17-[address] [facility] Start: 03-05-2023 End: 03-17-2023 ambulatory [facility] Work Phone: Start: 03-05-2023 End: 03-17-2023 [facility] Start: 03-05-[facility]23 [facility] Start: 01-30-2023 End: 01-30-2023 ambulatory [facility] Work Phone: Start: 01-30-2023 End: 01-30-2023 Patient encounter procedure [facility] Work Phone: Start: 01-23-2023 End: 01-23-2023 Patient encounter procedure [facility] Work Phone: Start: 10-18-2022 End: 10-18-2022 Office outpatient visit 25 minutes Mela Walker QUALITY CONTROL INSPECTOR Work Phone: [facility] Comment on above: Attention deficit hy peractivity disorder (ADHD), predominantly inattentive type; Mood disorder (HCC) Start: 08-08-2022 End: 08-08-2022 ambulatory [facility] Work Phone: Start: 08-08-2022 End: 08-08-2022 Patient encounter procedure [facility] Start: 07-19-2022 End: 07-19-2022 Office outpatient visit 25 minutes Mela Walker QUALITY CONTROL INSPECTOR Work Phone: [facility] Comment on above: Mood disorder (HCC) (Primary Dx); Intractable migraine with aura without status migrainosus; Depression, unspecified depression type; Attention deficit hyperactivity disorder (ADHD), predominantly inattentive type; Vitamin D deficiency; Screening for thyroid disorder; Encounter for lipid screening for cardiovascular disease; Iron deficiency; Well adult exam Start: 07-19-2022 End: 07-19-2022 Patient encounter status Mela Walker QUALITY CONTROL INSPECTOR [facility] Phone: [facility] Start: 06-30-2022 End: 07-18-2022 ambulatory [facility] Work Phone: Start: 06-30-2022 End: 07-18-2022 Discharged Recurring [facility] Start: 06-28-2022 Refill Mela lyons QUALITY CONTROL INSPECTOR Work Phone: [facility] Comment on above: Attention deficit hy peractivity disorder (ADHD), predominantly inattentive type Start: 04-18-2022 Patient encounter status Mela Walker CNP Work Phone: [facility] Start: 02-10-2022 End: 02-10-2022 Office outpatient visit 25 minutes Mela Walker QUALITY CONTROL INSPECTOR Work Phone: [facility] Comment on above: Depression, unspecif ied depression type (Primary Dx); Attention deficit hyperactivity disorder (ADHD), predominantly inattentive type; Intractable migraine with aura without status migrainosus; Screening mammogram for breast cancer Start: 01-11-2022 End: 01-15-2022 Discharged Recurring [facility] Start: 12-14-2021 End: 12-15-2021 Discharged Recurring [facility] Start: 09-16-2021 End: 10-15-2021 Discharged Recurring [employer] Bethanie Redick Work Phone: [facility] Start: 09-08-2021 End: 09-15-2021 Discharged Recurring [employer] Bethanie Redick Work Phone: [facility] Start: 08-15-2021 End: 08-15-2021 Discharged Recurring [employer] Bethanie Redick Work Phone: [facility] Start: 08-03-2021 End: 08-03-2021 Emergency department patient visit Deonte Velasquezdrine [facility] [place] [address] Start: 07-14-2021 End: 07-18-2021 Discharged Recurring [employer] Bethanie Redick Work Phone: [facility] Start: 07-05-2021 Orders Only Mela lyons QUALITY CONTROL INSPECTOR Work Phone: [facility] Comment on above: Vitamin D deficiency (Primary Dx); Iron deficiency Start: 07-01-2021 Patient encounter procedure LE[employer] Bethanie Redick Work Phone: [facility] Start: 06-26-2021 End: 06-26-2021 Patient encounter procedure LEAF [employer] P[employer]ER-C Bethanie Redick Work Phone: [facility] Start: 06-16-2021 End: 06-17-2021 Discharged Recurring [employer] Bethanie Redick Work Phone: [facility] Start: 06-06-2021 End: 06-06-2021 Office outpatient visit 15 minutes Mela Walker QUALITY CONTROL INSPECTOR Work Phone: [facility] Comment on above: Attention deficit hy peractivity disorder (ADHD), predominantly inattentive type Start: 04-15-2021 End: 09-10-2024 Patient encounter status Mela Amato Denise QUALITY CONTROL INSPECTOR Work Phone: [facility] Start: 04-15-2021 End: 04-15-2021 Periodic preventive med est patient 18-39 yrs Mela Walker QUALITY CONTROL INSPECTOR Work Phone: [facility] Comment on above: Well adult exam (Yuki lizzie Dx) Start: 03-10-2021 End: 03-10-2021 Office outpatient visit 15 minutes Mela Walker QUALITY CONTROL INSPECTOR Work Phone: [facility] Comment on above: Attention deficit hy peractivity disorder (ADHD), predominantly inattentive type Start: 12-08-2020 End: 12-08-2020 Office outpatient visit 25 minutes Mela Walker QUALITY CONTROL INSPECTOR Work Phone: [facility] Comment on above: Attention deficit hy peractivity disorder (ADHD), unspecified ADHD type (Primary Dx); ANISH (generalized anxiety disorder) Start: 11-17-2020 End: 11-17-2020 Emergency department patient visit Jenny Giang [facility] Emergency 13 Start: 07-16-2020 End: 07-16-2020 Refill Barbara Cruz Work Phone: [facility] Comment on above: Depression, unspecif ied depression type Start: 06-01-2020 End: 06-01-2020 Office outpatient visit 15 minutes Barbara Cruz Work Phone: [facility] Comment on above: Depression, unspecif ied depression type (Primary Dx); Attention deficit hyperactivity disorder (ADHD), unspecified ADHD type; Mood disorder (HCC) Start: 04-28-2020 End: 04-28-2020 Documentation procedure Barbara Cruz Work Phone: [facility] Start: 01-09-2020 End: 01-09-2020 Office outpatient visit 15 minutes Barbara Cruz Work Phone: [facility] Comment on above: Well adult exam (Yuki lizzie Dx); Attention deficit hyperactivity disorder (ADHD), unspecified ADHD type; Screening for lipid disorders Start: 06-20-2019 End: 06-20-2019 Office outpatient visit 15 minutes Barbara Cruz Work Phone: [facility] Comment on above: Attention deficit hy peractivity disorder (ADHD), unspecified ADHD type Start: 02-21-2019 End: 02-21-2019 Office outpatient visit 15 minutes Barbara Cruz Work Phone: [facility] Comment on above: Attention deficit hy peractivity disorder (ADHD), unspecified ADHD type Start: 11-14-2018 End: 11-18-2018 Patient encounter procedure BARBARACT CRUZ [facility] Start: 11-13-2018 End: 11-13-2018 Office outpatient visit 15 minutes Barbara Cruz Work Phone: [facility] Comment on above: Attention deficit hy peractivity disorder (ADHD), unspecified ADHD type (Primary Dx); Encounter for well adult exam without abnormal findings; Screening for lipid disorders; Screening for thyroid disorder; Depression, unspecified depression type Start: 08-09-2018 End: 08-09-2018 Office outpatient new 45 minutes Barbara Castillo Work Phone: [facility] Comment on above: Encounter for well a dult exam without abnormal findings (Primary Dx); Attention deficit hyperactivity disorder (ADHD), unspecified ADHD type Start: 02-13-2018 Patient encounter Abisai chester:[place] Start: 02-13-2018 End: 02-13-2018 Patient encounter Abisai Wyman Work Phone: [facility] Procedures Date Procedure Procedure Detail Performing [...] the productionof interferon gamma. Chemiluminescence immunoassaymethodologyPerformed at: [facility] [place] [id number] Director: Graham Kinney PhD, Phone: [phone] Start: 01-23-2025 Serum inorganic phosphate measurement Be michelle Walker [employer]C Work Phone: Start: 01-12-2025 DENISE measurement Mela Walker [employer]ER[employer]C Work Phone: Comment on above: Performed at: [facility] [place], [place] [id number] Director: Graham Kinney PhD, Phone: [phone] Start: 12-08-2024 Plain chest X-ray Mela Walker [employer] Work Phone: Start: 12-08-2024 Estimated creatinine clearance Mela conner [employer]C Work Phone: Start: 03-21-2024 Mammography Mela Walker QUALITY CONTROL INSPECTOR Work Phone: Start: 03-13-2024 Drug tst prsmv instrmnt chem analyzers pr date Mela Walker QUALITY CONTROL INSPECTOR Work Phone: Start: 03-21-[address] Priyanka Leonardo Work Phone: Start: 03-05-2023 Viral antigen assay Start: 01-30-2023 Ultrasonography of breast Start: 01-23-2023 End: 01-23-2023 Screening mammography Start: 09-15-2021 End: 09-15-2021 Viral antigen assay [employer] Bethaniemoises Hurleyick Work Phone: Start: 08-15-2021 SARS-CoV-2 Antigen (Rapid) [employer] Bethanie Re nitza Work Phone: Start: 07-14-2021 SARS-CoV-2 Antigen (Rapid) [employer] Bethanie Re nitza Work Phone: Start: 06-14-2021 SARS-CoV-2 Antigen (Rapid) [employer] Bethanie Re nitza Work Phone: Start: 02-13-2018 End: 02-13-2018 Lipid panel Abisai Wyman Work Phone: Viral antigen assay Viral antigen assay Plan of Treatment Date Care Activity Detail Author Start: 2056 RSV Vaccines (1 - 1- dose 75+ series) RSV Vaccines (1 - 1-dose 75+ series) [facility] Start: 08-19-2031 Administration of he rpes zoster vaccine Zoster Vaccines (1 of 2) [facility] Start: 03-21-2026 COVID-19 Vaccine ( season) COVID-19 Vaccine ( season) [facility] Comment on above: Postponed from 02/16 (Treatment Not Available) Start: 03-17-2026 History and physical examination, annual for health maintenance Wellness Visit [facility] Start: 03-17-2026 Tetanus vaccination Tetanus: Every 1 0yrs [facility] Comment on above: Postponed from 06/19 (Patient Refused) Start: 01-14-2026 Depression Remission Assessment (PHQ9) Depression Remission Assessment (PHQ9) [facility] Start: 12-15-2025 Influenza vaccination Influenza Vacc ine (#1) [facility] Comment on above: Postponed from 02/16 (Patient Refused) Start: 06-18-2025 Vaccination for diphtheria, pertussis, and tetanus Tetanus/Diphtheria/Pertu ssis (8 - Td or Tdap) [facility] Start: 03-21-2025 Screening for malign ant neoplasm of breast Mammogram [facility] Start: 03-17-2025 End: 03-17-2025 Patient encounter procedure 03/17/2025 2:20 PM EDT Office Visit [facility] Physician [facility] Primary Care [address] [place] [phone] Mela Walker, QUALITY CONTROL INSPECTOR [address] [place] [address] [facility] Physician [facility] Start: 03-13-2025 Depression screening using PHQ-9 (Patient Health Questionnaire 9) score Depression Screening/Follow-Up (PHQ-2/9) [facility] Start: 03-13-2025 History and physical examination, annual for health maintenance Wellness Visit [facility] Start: 02-16-2025 COVID-19 Vaccine ( season) COVID-19 Vaccine ( season) [facility] Start: 02-16-2025 Influenza vaccination [facility] Start: 12-08-2024 [facility] Start: 12-08-2024 [facility] Start: 09-10-2024 End: 09-10-2024 Telemedicine consultation with patient 09/10/2024 9:40 AM EDT Telemedicine [facility] [address] [place] [phone] Mela Walker, QUALITY CONTROL INSPECTOR [address] [place] [address] [facility] Start: 04-07-2024 COVID-19 Vaccine ( season) COVID-19 Vaccine ( season) [facility] Comment on above: Postponed from 02/16 (Treatment Not Available) Start: 04-04-2024 History and physical examination, annual for health maintenance Wellness Visit [facility] Start: 04-04-2024 Pneumococcal Vaccine : Ped or At-Risk (1 - PCV) Pneumococcal Vaccine: Ped or At-Risk (1 - PCV) [facility] Comment on above: Postponed from 08/18 (Patient Refused) Start: 04-04-2024 Pneumococcal Vaccine : Ped or At-Risk (1 of 2 - PCV) Pneumococcal Vaccine: Ped or At-Risk (1 of 2 - PCV) [facility] Comment on above: Postponed from 08/18 (Patient Refused) Start: 04-04-2024 Tetanus vaccination Tetanus: Every 1 0yrs [facility] Comment on above: Postponed from 06/19 (Patient Refused) Start: 03-06-2024 End: 03-06-2024 Patient encounter procedure 03/06/2024 3:20 PM EDT Office Visit [facility] [address] [address] Mela Walker, QUALITY CONTROL INSPECTOR [address] [place], [place] [phone] [facility] Start: 02-17-2024 COVID-19 Vaccine ( season) COVID-19 Vaccine ( season) [facility] Start: 02-17-2024 COVID-19 Vaccine ( season) COVID-19 Vaccine ( season) [facility] Start: 02-17-2024 Influenza vaccination Influenza Vacc ine (#1) [facility] Start: 01-24-2024 Screening for malign ant neoplasm of breast Mammogram [facility] Start: 10-12-2023 End: 10-12-2023 Telemedicine consultation with patient 10/12/2023 1:40 PM EDT Telemedicine [facility] [address] [place] [phone] Mela Walker, QUALITY CONTROL INSPECTOR [address] [place], [place] [phone] [facility] Start: 04-05-2023 History and physical examination, annual for health maintenance Wellness Visit [facility] Start: 02-10-2023 Tetanus vaccination Tetanus: Every 1 0yrs [facility] Comment on above: Postponed from 06/19 (Patient Refused) Start: 10-18-2022 End: 10-18-2022 Telemedicine consultation with patient 10/18/2022 Telemedicine Primary Care Mela Walker, MARYA [address] [place] [address] [facility] Start: 07-19-2022 End: 07-19-2022 Patient encounter procedure 07/19/2022 Office Visit Primary Care Mela Walker CNP [address] [place] [address] [facility] Start: 04-15-2022 History and physical examination, annual for health maintenance Wellness Visit [facility] Start: 04-15-2022 Pneumococcal Vaccine : Ped or At-Risk (1 - PCV) Pneumococcal Vaccine: Ped or At-Risk (1 - PCV) [facility] Comment on above: Postponed from 08/18 (Patient Refused) Start: 04-15-2022 Pneumococcal Vaccine : Ped or At-Risk (1 of 2 - PPSV23) Pneumococcal Vaccine: Ped or At-Risk (1 of 2 - PPSV23) [facility] Comment on above: Postponed from 08/18 (Patient Refused) Start: 02-16-2022 Influenza vaccination Sequenti al Influenza Vaccine (#1) [facility] Start: 12-08-2021 Depression screening using PHQ-9 (Patient Health Questionnaire 9) score Depression Screening/Follow-Up (PHQ-2/9) [facility] Start: 10-08-2021 Depression Remission Assessment (PHQ9) Depression Remission Assessment (PHQ9) [facility] Start: 2021 Screening for malign ant neoplasm of breast [facility] Start: 06-19-2021 [facility] Start: 06-06-2021 End: 06-06-2021 Telemedicine consultation with patient 06/06/2021 Telemedicine Primary Care Mela Walker CNP [address] [place] [address] [facility] Start: 05-27-2021 COVID-19 Vaccine (4 - Booster for Pfizer series) COVID-19 Vaccine (4 - Booster for Pfizer series) [facility] Start: 03-10-2021 End: 03-10-2021 Telemedicine consultation with patient 03/10/2021 Telemedicine Primary Care Mela Walker, QUALITY CONTROL INSPECTOR [address] [place] [address] [phone] [facility] Start: 02-16-2021 Influenza vaccination [facility] Start: 11-17-2020 End: 11-18-2021 Sodium Chloride 0.9% IV Bolus . ; DOSE = 1,000 mL OnceInfuse over 1 hour(s) Start: 17-Nov-2020 End: 17-Nov-2021 Ordered: 17-Nov-2020 Jenny Giang [facility] Start: 11-17-2020 End: 11-18-2021 Sodium Chloride 0.9% Infusion . ; IV Bag Volume = 1,000 mL Run at: 125 mL/hr IntraVenous Start: 17-Nov-2020 End: 17-Nov-2021 Ordered: 17-Nov-2020 Jenny Giang [facility] Start: 11-08-2020 Depression Remission Assessment (PHQ9) Depression Remission Assessment (PHQ9) [facility] Start: 08-20-2020 End: 08-20-2020 Office Visit 08/20/2020 Office Visit Primary Care Barbara Cruz, QUALITY CONTROL INSPECTOR [address] [place] [address] [phone] [facility] Start: 04-09-2020 End: 04-09-2020 Office Visit 04/09/2020 Office Visit Primary Care Barbara Cruz, QUALITY CONTROL INSPECTOR [address] [place] [address] [phone] [facility] Start: 02-17-2020 Influenza vaccinatio n given Sequential Influenza Vaccine (#1) [facility] Start: 09-19-2019 End: 09-19-2019 Office Visit 09/19/2019 Office Visit Primary Care Barbara Cruz QUALITY CONTROL INSPECTOR [address] [place] [address] [phone] [facility] Start: 05-26-2019 End: 05-26-2019 Office Visit 05/26/2019 Office Visit Primary Care Barbara Cruz, QUALITY CONTROL INSPECTOR [address] [place] [address] [phone] [facility] Start: 02-16-2019 Influenza vaccinatio n given SEQUENTIAL INFLUENZA VACCINE (#1) [facility] Start: 02-12-2019 End: 02-12-2019 Office Visit 02/12/2019 Office Visit Primary Care Barbara Cruz, QUALITY CONTROL INSPECTOR [address] [place] [address] [phone] [facility] Start: 11-08-2018 End: 11-08-2018 Office Visit 11/08/2018 Office Visit Primary Care Barbara Castillo, QUALITY CONTROL INSPECTOR [address] [place] [address] [phone] [facility] Start: 08-19-2011 Screening for malign ant neoplasm of cervix HPV/Cotest [facility] Start: 2008 Vaccination for otilia n papillomavirus HPV Vaccines (1 - 3-dose SCDM series) [facility] Start: 2000 Hepatitis B vaccination Hepati tis B Vaccines (1 of 3 - 19+ 3-dose series) [facility] Start: 08-19-1999 Hepatitis C antibody , confirmatory test Hepatitis C Screening [facility] Start: 08-19-1999 Hepatitis C screening Hepatitis C Sc reening [facility] Start: 1996 HIV screening HIV Screening [facility] Start: 1994 Varicella vaccination Varicell a Vaccines (1 of 2 - 13+ 2-dose series) [facility] Start: 08-19-1987 Pneumococcal Vaccine : Ped or At-Risk (1 - PCV) Pneumococcal Vaccine: Ped or At-Risk (1 - PCV) [facility] Start: 08-19-1987 Pneumococcal Vaccine : Ped or At-Risk (1 of 2 - PPSV23) Pneumococcal Vaccine: Ped or At-Risk (1 of 2 - PPSV23) [facility] Start: 1984 History and physical examination, annual for health maintenance Wellness Visit [facility] Start: 1981 Depression screening using PHQ-9 (Patient Health Questionnaire 9) score DEPRESSION SCREENING (PHQ9) [facility] Chiropractic manipulation [facility] End: 11-14-2019 Complete blood count with white cell differential, manual CBC and Differential Lab Routine Encounter for well adult exam without abnormal findings 1 Occurrences starting 11/13/2018 until 11/14/2019 [facility] Comment on above: 1 Occurrences starti ng 11/13/2018 until 11/14/2019 End: 01-08-2021 Complete blood count with white cell differential, manual CBC and Differential Lab Routine Well adult exam 1 Occurrences starting 01/09/2020 until 01/08/2021 [facility] Comment on above: 1 Occurrences starti ng 01/09/2020 until 01/08/2021 End: 07-19-2023 Complete blood count with white cell differential, manual CBC and Differential Lab Routine Well adult exam 1 Occurrences starting 07/19/2022 until 07/19/2023 [facility] Comment on above: 1 Occurrences starti ng 07/19/2022 until 07/19/2023 End: 11-14-2019 Comprehensive metabolic 2000 panel Comprehensive Metabolic Panel Lab Routine Encounter for well adult exam without abnormal findings 1 Occurrences starting 11/13/2018 until 11/14/2019 [facility] Comment on above: 1 Occurrences starti ng 11/13/2018 until 11/14/2019 End: 01-08-2021 Comprehensive metabolic 2000 panel Comprehensive Metabolic Panel Lab Routine Well adult exam 1 Occurrences starting 01/09/2020 until 01/08/2021 [facility] Comment on above: 1 Occurrences starti ng 01/09/2020 until 01/08/2021 End: 07-19-2023 Comprehensive metabolic 2000 panel - Serum or Plasma Comprehensive Metabolic Panel Lab Routine Well adult exam 1 Occurrences starting 07/19/2022 until 07/19/2023 [facility] Work Phone: Comment on above: 1 Occurrences starti ng 07/19/2022 until 07/19/2023 End: 07-19-2023 Iron measurement Iron Study with Ferritin Lab Routine Iron deficiency Well adult exam 1 Occurrences starting 07/19/2022 until 07/19/2023 [facility] Comment on above: 1 Occurrences starti ng 07/19/2022 until 07/19/2023 End: 11-14-2019 Lipid 1996 panel Lipid Panel Lab Routine Screening for lipid disorders 1 Occurrences starting 11/13/2018 until 11/14/2019 [facility] Comment on above: 1 Occurrences starti ng 11/13/2018 until 11/14/2019 End: 01-08-2021 Lipid 1996 panel Lipid Panel Lab Routine Screening for lipid disorders 1 Occurrences starting 01/09/2020 until 01/08/2021 [facility] Comment on above: 1 Occurrences starti ng 01/09/2020 until 01/08/2021 End: 07-19-2023 Lipid 1996 panel - Serum or Plasma Lipid Panel Lab Routine Encounter for lipid screening for cardiovascular disease Well adult exam 1 Occurrences starting 07/19/2022 until 07/19/2023 [facility] Comment on above: 1 Occurrences starti ng 07/19/2022 until 07/19/2023 End: 04-12-2023 MG Breast - bilateral Screening Mammography Screening [facility] Routine Screening mammogram for breast cancer 1 Occurrences starting 02/10/2022 until 04/12/2023 [facility] Work Phone: Comment on above: 1 Occurrences starti ng 02/10/2022 until 04/12/2023 End: 05-13-2025 MG Breast - bilateral Screening Mammography Screening [facility] Routine Screening mammogram for breast cancer 1 Occurrences starting 03/13/2024 until 05/13/2025 [facility] Work Phone: Comment on above: 1 Occurrences starti ng 03/13/2024 until 05/13/2025 End: 05-17-2026 MG Breast - bilateral Screening Mammography Screening [facility] Routine Screening mammogram for breast cancer 1 Occurrences starting 03/17/2025 until 05/17/2026 [facility] Work Phone: Comment on above: 1 Occurrences starti ng 03/17/2025 until 05/17/2026 Patient Education ED Near-Fainti ng, Uncertain Cause [facility] Work Phone: Patient referral [facility] Work Phone: End: 07-19-2023 Thyrotropin [Units/volume] in Serum or Plasma TSH Lab Routine Screening for thyroid disorder Well adult exam 1 Occurrences starting 07/19/2022 until 07/19/2023 [facility] Comment on above: 1 Occurrences starti ng 07/19/2022 until 07/19/2023 End: 11-14-2019 Thyrotropin Qn TSH with Reflex Free T4 Lab Routine Screening for thyroid disorder 1 Occurrences starting 11/13/2018 until 11/14/2019 [facility] Comment on above: 1 Occurrences starti ng 11/13/2018 until 11/14/2019 End: 07-19-2023 Thyroxine (T4) free [Mass/volume] in Serum or Plasma T4, Free Lab Routine Screening for thyroid disorder Well adult exam 1 Occurrences starting 07/19/2022 until 07/19/2023 [facility] Comment on above: 1 Occurrences starti ng 07/19/2022 until 07/19/2023 End: 07-19-2023 Vitamin D, 25-hydroxy measurement Vitamin D, Total, 25-OH Lab Routine Vitamin D deficiency Well adult exam 1 Occurrences starting 07/19/2022 until 07/19/2023 [facility] Comment on above: 1 Occurrences starti ng 07/19/2022 until 07/19/2023 Immunizations Immunization Date Immunization Notes Care Provider [facility] 03-19-2025 influenza, seasonal, injectable, preservative free Mela Walker [employer] P[employer]ER-C Work Phone: [facility] 04-03-2024 influenza, seasonal, injectable, preservative free Mela Walker LEAF SIZE PICKER-C Work Phone: [facility] 04-03-2024 influenza virus vaccine, unspecified formulation Mela Walker QUALITY CONTROL INSPECTOR Work Phone: [facility] 03-26-2023 influenza, injectabl e, quadrivalent, preservative free Dr. Priyanka Leonardo Work Phone: [facility] 03-26-2023 influenza virus vaccine, unspecified formulation Mela Walker QUALITY CONTROL INSPECTOR Work Phone: [facility] 05-08-2022 influenza virus vaccine, unspecified formulation Mela Walker QUALITY CONTROL INSPECTOR Work Phone: [facility] 04-22-2022 influenza, injectabl e, quadrivalent, preservative free [facility] 04-22-2022 influenza, seasonal, injectable [facility] 05-08-2021 influenza, injectabl e, quadrivalent, preservative free [facility] 05-08-2021 influenza, seasonal, injectable LEAF [employer] P[employer]ER-C Bethanie Redick Work Phone: [facility] Work Phone: 05-08-2021 influenza, seasonal, injectable, preservative free Mela Walker QUALITY CONTROL INSPECTOR Work Phone: [facility] 04-01-2021 Covid (Pfizer) LEAF [employer] P[employer]ER-C Bethanie Re nitza Work Phone: [facility] 07-13-2020 Covid (Pfizer) [facility] 06-22-2020 Covid (Pfizer) [facility] 03-15-2020 influenza, injectabl e, quadrivalent, preservative free [facility] 03-15-2020 influenza, seasonal, injectable LEAF [employer] P[employer]-C Bethanie Redick Work Phone: [facility] [facility] Work Phone: 03-15-2020 influenza, seasonal, injectable, preservative free Mela Walker QUALITY CONTROL INSPECTOR Work Phone: [facility] 03-27-2019 influenza, injectabl e, quadrivalent, preservative free [facility] 03-27-2019 influenza, seasonal, injectable LEAF SIZE PICKER-C Bethanie Redick Work Phone: [facility] Work Phone: 03-27-2019 influenza, seasonal, injectable, preservative free Mela Walker QUALITY CONTROL INSPECTOR Work Phone: [facility] 06-18-2015 diphtheria, tetanus toxoids and acellular pertussis vaccine Barbara Castillo [facility] 09-13-2011 hepatitis B vaccine, pediatric or pediatric/adolescent dosage [facility] 03-15-2011 hepatitis B vaccine, pediatric or pediatric/adolescent dosage [facility] 02-07-2011 hepatitis B vaccine, pediatric or pediatric/adolescent dosage [facility] 02-01-2011 tetanus toxoid, redu yarely diphtheria toxoid, and acellular pertussis vaccine, adsorbed [facility] 07-13-1993 measles, mumps and rubella virus vaccine [facility] 03-10-1987 diphtheria, tetanus toxoids and pertussis vaccine [facility] 03-10-1987 trivalent poliovirus vaccine, live, oral Barbara [facility] 09-13-1983 diphtheria, tetanus toxoids and pertussis vaccine [facility] 09-13-1983 measles, mumps and rubella virus vaccine [facility] 09-13-1983 trivalent poliovirus vaccine, live, oral Barbara [facility] 04-13-1982 diphtheria, tetanus toxoids and pertussis vaccine [facility] 1981 diphtheria, tetanus toxoids and pertussis vaccine [facility] 1980 trivalent poliovirus vaccine, live, oral Barbara [facility] 1980 diphtheria, tetanus toxoids and pertussis vaccine [facility] 1981 trivalent poliovirus vaccine, live, oral [facility] Payers Date Payer Category Payer Self-pay [id number] 2022 Managed Care (privat e) or private health insurance (indemnity), not otherwise specified [employer] [id number] 2022 Private Health Insurance [id number] .[id number]. [id number] 2019 Unknown [id number] 1.2.840.458470.1.13.385.2. [id number] 2019 Unknown 2019 Unknown [id number] 2016 Unknown [id number] 1.2.840.080137.1.13.385.2. 7.3.905198.315 2016 Unknown [id number] 1981 Unknown [id number] 2.16.840.1.517186.3.579.2. 903 1981 Unknown [id number] 2.16.840.1.935849.3.579.2. 903 1981 Unknown [id number] 2.16840.1.532415.3.579.2. 903 1981 Unknown [id number] 2.840.1.288871.3.579.2. 903 1981 Unknown [id number] 2.840.1.696518.3.579.2. 903 1981 Unknown [id number] 2.840.1.444575.3.579.2. 903 1981 Unknown [id number] 2.16840.1.353397.3.579.2. 903 Unknown [id number] Unknown [id number] Unknown [id number] 2.16.840.1.300403.3.579.2. 462 Unknown [id number] 2.16.840.1.943074.3.579.2. 462 Unknown [id number] 2.16.840.1.201137.3.579.2. 462 Unknown [id number] 2.16.840.1.020901.3.579.2. 462 Unknown [id number] 2.16.840.1.590100.3.579.2. 462 Unknown [id number] 2.16.840.1.496095.3.579.2. 462 Unknown [id number] 2..840.1.816482.3.579.2. 462 Unknown [id number] 2..840.1.545405.3.579.2. 462 Unknown [id number] 2..840.1.726583.3.579.2. 462 Unknown [id number] 2..840.1.714280.3.579.2. 462 Social History Date Type [facility]ail [facility] Start: 1980 Sex Assigned At Not on file [facility] Start: 04-18-1999 End: 07-19-2022 Tobacco smoking status NHIS Current every day smoker [facility] Start: 04-18-1999 End: 01-17-2024 History of tobacco use Cigarette Smoker [facility] Start: 08-09-2018 End: 03-17-2025 Cigarettes smoked current (pack per day) - Reported [facility] Start: 08-08-2018 End: 02-09-2022 History SDOH Alcohol Frequency 2 [facility] Start: 08-09-2018 End: 02-09-2022 History SDOH Social Connections Phone 4 [facility] Start: 08-09-2018 End: 02-09-2022 History SDOH Social Connections Rastafari 1 [facility] Start: 08-09-2018 End: 02-09-2022 History SDOH Social Connections Living 5 [facility] Start: 08-09-2018 End: 02-09-2022 History SDOH Physical Activity DPW 0 [facility] Start: 02-23-2019 End: 03-17-2025 Alcohol intake Current drinker of alcohol (finding) [facility] Start: 01-30-2022 End: 07-18-2022 Exposure to SARS-CoV-2 (event) Not sure [facility] Start: 01-11-2020 End: 03-13-2024 Tobacco use and exposure Never used [facility] Start: 06-26-2021 End: 04-18-2023 Tobacco smoking consumption unknown [facility] Start: 07-21-2019 Cigarettes [facility] Start: 1980 Sex Assigned At Female [facility] Start: 02-09-2022 History SDOH Social Connections Living 8 [facility] Start: 02-09-2022 End: 03-17-2025 Humiliation, Afraid, Rape, and Kick questionnaire [HARK] [facility] Within the last year , have [...] got money to buy more. Never true [facility] Start: 08-09-2018 Gender identity Identifies as female gender (finding) [facility] Start: 08-09-2018 Sexual orientation Heterosexual (finding) [facility] Start: 03-13-2024 Tobacco smoking status NHIS Ex-smoker [facility] Start: 04-18-1999 End: 01-17-2024 History of tobacco use Current smoker [facility] Start: 12-08-2024 Tobacco smoking status HIIS Current Light tobacco smoker [facility] Start: 03-17-2025 Alcohol Comment Holidays and special occasions [facility] Goals Date Patient Goal Desired Activity /State Mental Status Date Assessment Result Facility 12-08-2024 Cognitive function Awake;Alert;A ppropriate;Fol lows Commands [facility] Work Phone: Clinical Notes 12-08-2020 to 03-17-2025 [...] supply, follow-up in the office as scheduled. [facility] 03-17-2025 Miscellaneous Notes Associate d Problem(s): ADHD [...] and schedule your appointment. [facility] ( [facility]) [address] [place], [place] [id number] Associated Problem(s): Well adult exam Doing well, denies complaints at this time. Health maintenance updated and reviewed with patient. It is recommended that you complete at least 150 minutes of cardiovascular activity weekly. documented in this encounter [facility] 03-17-2025 Evaluation + Plan note Associated Problem(s): Screening mammogram for breast cancer It is time to get your Mammogram done. Please call and schedule your appointment. [facility] ( [facility]) [address] [place] [id number] [facility] 03-17-2025 Evaluation + Plan note Associated Problem(s): Well adult exam Doing well, denies complaints at this time. Health maintenance updated and reviewed with patient. It is recommended that you complete at least 150 minutes of cardiovascular activity weekly. 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 Nose: Nose normal. Mouth/Throat: Lips: Anthony. Mouth: Mucous membranes are moist. Pharynx: Oropharynx [...] and schedule your appointment. [facility] ( [facility]) [address] [place], [place] [id number] Relevant Orders Mammography Screening Ortiz Bilateral Goals [...] treatment is required. 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 [facility] 01[facility]29[facility]2025 Evaluation note Diagnosis Onset Date Resolution Cervicogenic headache acute Jan 2:55pm Segmental and somatic dysfunction of cervical region acute January 29 2:55pm Segmental and somatic dysfunction of lumbar region acute January 29 2:55pm Segmental and somatic dysfunction of pelvic region acute January 29 2:55pm Segmental and somatic dysfunction of thoracic region acute January 29 2:55pm [facility] Work Phone: 1(759) 949-915206-23-2025 [facility] [address] [place] [address] OFFICE VISIT Date of Service: 03/23/25 MR#: [id number] Acct: [id number] Patient: FRIDA WIN Rep #: [id number] : 1980 Provider: MARTHA Arnold Age/Sex: 44/F Location: [facility] Status: Signed Intake Vital Signs 12/08/24 07:11 [...] 03/23/25 1115 s MARTHA THOMAS> Date _ Kevni Paulign Signature: Date (if applicable) CC: ~ [facility]06-23-2025 Discharge summary [facility] Medical Records Department [address] [place] [address] Emergency Department Summary 12/08/24 MR#: [id number] Acct: [id number] Name: FRIAD WIN Rep #:[id number] : 1980 44 From: Deonte Beckett [...] notes that this is not unusual forher. 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 NIH is [...] feel this less likely based on revised Oakland score, pancreatitis,orthostatic hypotension, vasovagal syncope/near syncope. Once workup is obtained reviewed she will be reevaluated. Orthostatic vital signs will be checked. Patient be given IV fluids for hydration. Patient be given Reglan. Oakland Score (Revised) for Pulmonary Embolism from [employer] on 12/08/2024 All calculations should be rechecked [...] 76.0 H Lymph % (Auto) 17.8 L Valencia % (Auto) 4.0 Eos % (Auto) 1.1 [...] acute osseous process is seen. Reading Location: [place] [address] Discharge Plan Triage Chief Complaint: Dizziness ED [...] symptoms or any other concerns. Print Language: Comoran Disposition Disposition: Home, Self Care What to do if you have Problems For any increased pain, shortness of breath, bleeding, nausea or vomiting, chestpain, or any unexpected problems, contact your Primary Care Provider. Call [facility] ([phone]) or report tothe closest Emergency Room. Call 911 if necessary. 12/08/24 1119 Cosigner Signature (if applicable): CC: FILIBERTO Walker ~ Signed [facility]06-23-2025 Radiology Diagnostic study note [facility] Imaging Services [address] [place], [place] [address] Chest 1 View (Portable) MR#: [id number] Acct: [id number] Name: FRIDA WIN Rep #: [id number] : 1980 F 44 From: Abisai Morgan MD PCP: FILIBERTO Cooper Status: REG ER Study:Chest 1 View (Portable) Date of Exam: 12/08/24 Exam# [id number] Ordering Dr: Ky Beckett DO PROCEDURE: CHEST [...] acute osseous process is seen. Reading Location: [place] [address] CC: FILIBERTO Walker; Dr. Deonte Beckett, DO ~ Floor Installer: Signed [facility]04-29-2025 Evaluation note* Diagnosis Onset Date Resolution Status Admit Date Women's annual routine gynecological examination acute October 14, 2024 3:02pm [facility] Work Phone: 1(470) 660-367304-29-2025 Evaluation note* Diagnosis Onset Date Resolution Status [...] thoracic region acute A ugust 2024 2:55pm [facility] Work Phone: [phone]) [phone] Evaluation + Plan note* Assessment & Plan Note - Mela Walker CNP - 09/10/2024 11:47 AM EDTAssociated Problem(s): Depression As discussed within your appointment today, you are doing well on sertraline. I would like you to continue to take your medication(s) as ordered. If medication refills are needed, they have been sentto your pharmacy. [id number] Evaluation + Plan note* Assessment & Plan [...] supply, follow-up in the office as scheduled. [id number] Miscellaneous Notes* Assessment & Plan Note - [...] the office as scheduled. 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 [...] 4 days Stress: Stress Concern Present (02/09/2022) [place] [employer] - Occupational Stress Questionnaire Feeling of Stress : Rather much Social Connections: Moderately Isolated (02/09/2022) Social Connection and Isolation Panel [NHANES] Frequency of Communication with Friends and Family: More than three times a week Frequency of Social Gatherings with Friends and Family: Once a week Attends Mu-Ism Services: Never Active Member of Clubs or Organizations: No Attends Club or Organization Meetings: Never Marital Status: Living with partner Housing Stability: Low Risk (02/09/2022) Pattie (more content not included)...[facility] Evaluation + Plan note* Assessment & [...] supply, follow-up in the office as scheduled. [id number] Evaluation + Plan note* Assessment & Plan [...] is titrated to the maintenance dose. T [id number] Evaluation + Plan note* Assessment & Plan Note - Mela Walker CNP - 03/13/2024 3:24 PM EDTAssociated Problem(s): Screening mammogram for breast cancer Today I have ordered her mammogram for you to have completed. Please call and schedule this at yourearliest convenience. If an order was placed today, the hospital will contact you to schedule an appointment. [id number] Evaluation + Plan note* Assessment & Plan Note - Mela Walker CNP - 03/13/2024 3:24 PM EDTAssociated Problem(s): Well adult exam Doing well, denies complaints at this time. Health maintenance updated and reviewed with patient. It is recommended that you complete at least 150 minutes of cardiovascular activity weekly. T [id number] Miscellaneous Notes* Assessment & Plan Note - [...] of cardiovascular activity weekly. 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 Nose: Nose normal. Mouth/Throat: Lips: Anthony. Mouth: Mucous membranes are moist. Pharynx: Oropharynx [...] (screening of osteoporosis) andcolonoscopy. documented in this [id number] History of Present illness Narrative* Mela Walker CNP - 02/11/2024 7:54 AM EDT Patient requesting medication be sent to [facility]. documented in this [id number] Evaluation + Plan note* Assessment & Plan Note - Mela Walker CNP - 10/16/2023 2:26 PM EDT Associated Problem(s): Depression As discussed within your appointment today, you are doing well on Zoloft, and Lamictal. I would like you to continue to take your medication(s) as ordered. If medication refills are needed, they havebeen sent to your pharmacy. [id number] Miscellaneous Notes* Assessment & Plan Note - [...] refills are needed, they have been sent [facility] pharmacy. * Assessment & Plan Note - [...] the office as scheduled. documented in this [id number] Evaluation + Plan note* Assessment & Plan Note - Mela Walker CNP - 10/16/2023 2:25 PM EDT Associated Problem(s): Intractable migraine with aura without status migrainosus As discussed within your appointment today, you are doing well on Topamax. I would like you to continue to take your medication(s) as ordered. If medication refills are needed, they have been sent [facility] pharmacy. [id number] Evaluation + Plan note* Assessment & Plan [...] supply, follow-up in the office as scheduled. 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 Relevant Medications lamoTRIgine (LAMICTAL) 100 MG [...] effects of the medications. documented in this [id number] Evaluation + Plan note* Assessment & Plan [...] supply, follow-up in the office as scheduled. [id number] Miscellaneous Notes* Assessment & Plan Note - Mela Walker CNP - 07/05/2023 3:37 PM ESTAssociated Problem(s): ADHD I have ordered a 90 day supply of your Mydais. This is a controlled substance which [facility] To have this medication refilled, you [...] sent to your pharmacy. documented in this [id number] Evaluation + Plan note* Assessment & Plan Note - Mela Walker CNP - 07/05/2023 3:36 PM EST Associated Problem(s): Depression As discussed within your appointment today, you are doing well on Zoloft. I would like you to continue to take your medication(s) as ordered. If medication refills are needed, they have been sent to your pharmacy. [id number] Evaluation + Plan note* Assessment & Plan Note - Mela Walker CNP - 07/05/2023 3:36 PM ESTAssociated Problem(s): Vitamin D deficiency As discussed within your appointment today, you are doing well on vitamin D. I would like you to continue to take your medication(s) as ordered. If medication refills are needed, they have been sent to your pharmacy. [id number] Evaluation + Plan note* Assessment & Plan Note - Mela Walker CNP - 07/05/2023 3:35 PM ESTAssociated Problem(s): Intractable migraine with aura without status migrainosus As discussed within your appointment today, you are doing well on Nurtec. I would like you to continue to take your medication(s) as ordered. If medication refills are needed, they have been sent to your pharmacy. 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 documented in this [id number] Evaluation + Plan note* Assessment & Plan Note - Mela Walker CNP - 04/04/2023 1:53 PM EDT Associated Problem(s): Well adult exam Doing well, denies complaints at this time. Health maintenance updated and reviewed with patient. It is recommended that you complete at least 150 minutes of cardiovascular activity weekly. [id number] Miscellaneous Notes* Assessment & Plan Note - [...] take this as ordered. documented in this [id number] Evaluation + Plan note* Assessment & Plan [...] supply, follow-up in the office as scheduled. [id number] Evaluation + Plan note* Assessment & Plan Note - Mela Walker CNP - 04/04/2023 1:50 PM EDTAssociated Problem(s): Iron deficiency I have sent an iron supplement into your pharmacy, please take this as ordered. 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 documented in this [id number] Evaluation + Plan note* Assessment & Plan Note - Mela Walker CNP - 10/18/2022 2:12 PM EDT Associated Problem(s): Mood disorder (HCC) I have increased the Lamictal to 75mg daily, please let me know if you develop any side effects from this dose change. [id number] Miscellaneous Notes* Assessment & Plan Note - [...] the office as scheduled. documented in this [id number] Evaluation + Plan note* Assessment & Plan [...] supply, follow-up in the office as scheduled. 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 HENT: Nose: Nose normal. Mouth/Throat: Lips: Anthony. Pulmonary: Effort: Pulmonary effort is normal. Musculoskeletal: [...] 25 MG tablet Goals None Video Visit [facility] [address] [facility] [address] [facility] [place] [place] [address] Via Real-time Synchronous Audiovisual [facility] 10/18/2022 Mela Walker CNP Provider Location: [facility] PCP, or provider's home Patient Location Elevator Technician: None Patient Location: Work Patient: Frida Win [...] there are inherent diagnostic limitations compared to tihp-tz-hwrx evaluations. We elected to proceed with the video visit telemedicine consultation. For any new medications prescribed today, patient was educated about indications for the medication, how to take the medication and potential side effects of the medications. documented in this [id number] Evaluation + Plan note* Assessment & Plan Note - Mela Walker CNP - 07/25/2022 1:48 PM EST Associated Problem(s): Mood disorder (HCC) As discussed within your appointment today, you are doing well on Lamictal, and Zoloft. I would like you to continue to take your medication(s) as ordered. If medication refills are needed, they havebeen sent to your pharmacy. [id number] Evaluation + Plan note* Assessment & Plan [...] supply, follow-up in the office as scheduled. [id number] Evaluation + Plan note* Assessment & Plan Note - Mela Walker CNP - 07/25/2022 1:48 PM ESTAssociated Problem(s): Intractable migraine with aura without status migrainosus As discussed within your appointment today, you are doing well on Topamax. I would like you to continue to take your medication(s) as ordered. If medication refills are needed, they have been sent toyour pharmacy. [id number] Miscellaneous Notes* Assessment & Plan Note - [...] refills are needed, they have been sent [facility] pharmacy. 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 Relevant Medications lamoTRIgine (LAMICTAL) 25 MG [...] effects of the medications. documented in this [id number] Telephone encounter Note* Telephone Encounter - Mela Walker CNP - 06/28/2022 3:44 PM EST Please call the patient to schedule an appointment. She would like one in Jul. Thank you [id number] Miscellaneous Notes* Telephone Encounter - Mela Walker CNP - 06/28/2022 3:44 PM EST Please call the patient to schedule an appointment. She would like one in Jul. Thank you documented in this [id number] Evaluation + Plan note* Assessment & Plan [...] supply, follow-up in the office as scheduled. [id number] Miscellaneous Notes* Assessment & Plan Note - [...] and schedule your appointment. [facility] ( [facility]) [address] [place] [address] * Assessment & Plan Note - Mela Walker CNP - 02/23/2022 9:39 PM EDT Associated Problem(s): Intractable migraine with aura without status migrainosus With your worsening migraines, I would like you to start taking topamax as ordered, and Nurtec as needed. It is my hope that with these two medications, we can gain control over your migraines. documented in this [id number] Evaluation + Plan note* Assessment & Plan Note - Mela Walker CNP - 02/23/2022 9:40 PM EDT Associated Problem(s): Depression I would like you to start taking Zoloft. When you start this medication stop taking the Prozac. Please contact the office if you do not notice any improvement in your mood. [id number] Evaluation + Plan note* Assessment & Plan Note - Mela Walker CNP - 02/23/2022 9:40 PM EDTAssociated Problem(s): Screening mammogram for breast cancer It is time to get your Mammogram done. Please call and schedule your appointment. [facility] ( [facility]) [address] [place], [place] [id number] Evaluation + Plan note* Assessment & Plan Note - Mela Walker CNP - 02/23/2022 9:39 PM EDTAssociated Problem(s): Intractable migraine with aura without status migrainosus With your worsening migraines, I would like you to start taking topamax as ordered, and Nurtec as needed. It is my hope that with these two medications, we can gain control over your migraines. 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 [facility] ( [facility]) [address] [place] [id number] Relevant Orders Mammography Screening Ortiz Bilateral Goals None For any new medications prescribed today, patient was educated about indications for the medication, how to take the medication and potential side effects of the medications. documented in this [id number] Instructions* Patient Instructions* Mela Walker CNP - [...] to: Get organized. A daily organizer or media planner can help these adults organize their [...] Log into your personal health record on [email or web address] Auto Vault and enter Z848 in the Education box to learn more about Learning About Attention Deficit Hyperactivity Disorder (ADHD) in Adults. Current as of: December 01, 2020 Content Version: 13.1 [employer]. Care instructions adapted under license by your healthcare professional. If you have questions about a medical condition or this instruction, always ask your healthcare professional. [employer] disclaims any warranty or liability for your use of this information. documented in this [id number] Miscellaneous Notes* Assessment & Plan Note - [...] the office as scheduled. 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 HENT: Nose: Nose normal. Mouth/Throat: Lips: Anthony. Pulmonary: Effort: Pulmonary effort is normal. Musculoskeletal: [...] Goals None Video Visit [facility] [address] [facility] [address] [place] [address] Video Visit [facility] 06/06/2021 Mela Walker CNP Provider Location: opg office or provider's home Patient Location Elevator Technician: None Patient Location: Patient's Home Patient: Frida [...] there are inherent diagnostic limitations compared to appt-bv-hdre evaluations. We elected to proceed with the video visit telemedicine consultation. For any new medications prescribed today, patient was educated about indications for the medication, how to take the medication and potential side effects of the medications. documented in this [id number] Instructions* Patient Instructions* Mela Walker CNP - [...] Log into your personal health record on [email or web address] Auto Vault and enter P072 in the Education box to learn more about Well Visit, Ages 18 to 50: Care Instructions. Current as of: July 29, 2020 Content Version: 13.0 [employer]. Care instructions adapted under license by your healthcare professional. If you have questions about a medical condition or this instruction, always ask your healthcare professional. [employer] disclaims any warranty or liability for your use of this information. documented in this [id number] Miscellaneous Notes* Assessment & Plan Note - Mela Walker CNP - 04/15/2021 9:07 AM EDT Associated Problem(s): Well adult exam Doing well, denies complaints at this time. Health maintenance updated and reviewed with patient. It is recommended that you complete at least 150 minutes of cardiovascular activity weekly. documented in this [id number] History of Present illness Narrative* Mela Walker [...] Friends and Family: Not on file Attends Mu-Ism Services: Not on file Active Member of [...] 38.6 kg/m . The ASCVD Risk score (Matheson SHEYLA Jr., et al., 2013) failed to [...] (screening of osteoporosis) andcolonoscopy. documented in this [id number] Instructions* Patient Instructions* Mela Walker CNP - [...] to: Get organized. A daily organizer or media planner can help these adults organize their [...] Log into your personal health record on [email or web address] Vault and enter Z848 in the Education box to learn more about Learning About Attention Deficit Hyperactivity Disorder (ADHD) in Adults. Current as of: December 01, 2020 Content Version: 13.0 [employer]. Care instructions adapted under license by your healthcare professional. If you have questions about a medical condition or this instruction, always ask your healthcare professional. [employer] disclaims any warranty or liability for your use of this information. documented in this [id number] Miscellaneous Notes* Assessment & Plan Note - [...] the office as scheduled. 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 HENT: Nose: Nose normal. Mouth/Throat: Lips: Anthony. Pulmonary: Effort: Pulmonary effort is normal. Musculoskeletal: [...] No data found The ASCVD Risk score (Mathesonpeña CARRION Jr., et al., 2013) failed to [...] Goals None Video Visit [facility] [address] [facility] [address] [facility] [address] Video Visit [facility] 03/10/2021 Mela Walker CNP Provider Location: opg office or provider's home Patient Location Elevator Technician: None Patient Location: Patient's Home Patient: Frida [...] there are inherent diagnostic limitations compared to ytfb-oy-czrf evaluations. We elected to proceed with the video visit telemedicine consultation. For any new medications prescribed today, patient was educated about indications for the medication, how to take the medication and potential side effects of the medications. documented in this [id number] Miscellaneous Notes* Assessment & Plan Note - [...] is working for you. documented in this [id number] Instructions* Patient Instructions* Mela Walker CNP - [...] to: Get organized. A daily organizer or media planner can help these adults organize their [...] Log into your personal health record on [email or web address] [email or web address] Vault and enter Z848 in the Education box to learn more about Learning About Attention Deficit Hyperactivity Disorder (ADHD) in Adults. Current as of: March 10, 2020 Content Version: 12.8 [employer]. Care instructions adapted under license by your healthcare professional. If you have questions about a medical condition or this instruction, always ask your healthcare professional. [employer] disclaims any warranty or liability for your [...] do something you enjoy. Go to a [employer] movie, or take a walk or hike. [...] the numbers for these national suicide hotlines: 7-005-293-TALK ( ) and 5-082-CJGOIDR ( ). If you or someone you [...] Log into your personal health record on [email or web address] Auto Vault and enter P754 in the Education box to learn more about Anxiety Disorder: Care Instructions. Current as of: March 10, 2020 Content Version: 12.8 [employer]. Care instructions adapted under license by your healthcare professional. If you have questions about a medical condition or this instruction, always ask your healthcare professional. [employer] disclaims any warranty or liability for your use of this information. 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 [...] Social Gatherings with Friends and Family: Attends Mu-Ism Services: Active Member of Clubs or Organizations: [...] complaint+Reason for visit Narrative * Chief Complaint [employer] SNF-COVID 19 REQ UIRED TESTING COVID TEST COVID-19 [employer] SNF-COVID 19 REQUIRED TESTING [employer] SNF-COVID 19 REQUIRED TESTING [employer] SNF-COVID 19 REQUIRED TESTING Reason for Visit Common cold Encounter for screening for COVID-19 [facility] Work Phone: Chief complaint+Reason for visit Narrative* Chief Complaint COVID TEST COVID-19 [employer] SNF-COVID 19 REQUIRED TESTING [facility] SNF-COVID 19 REQUIRED TESTING [facility] [employer] [facility] SNF-COVID 19 REQUIRED TESTING [facility] SNF-COVID 19 REQUIRED TESTING Reason for Visit Common cold Encounter for screening for COVID-19 [facility] Work Phone: Discharge summary Author Deonte Beckett [facility] Note Date/Time December 08, 2024 11:1 9am [facility] Medical Records Department [address] [place] [id number] Emergency Department Summary 12/08/24 MR#: [id number] Acct: [id number] Name: FRIDA WIN Rep #:[id number] 0 : 1980 44 From: Deonte Beckett [...] notes that this is not unusual forher. 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 NIH is [...] feel this less likely based on revised Oakland score, pancreatitis, orthostatic hypotension, vasovagal syncope/near syncope. Once workup is obtained reviewed she will be reevaluated. Orthostatic vital signs will be checked. Patient be given IV fluids for hydration. Patient be given Reglan. Oakland Score (Revised) for Pulmonary Embolism from [employer] on 12/08/2024 All calculations should be rechecked [...] 76.0 H Lymph % (Auto) 17.8 L Valencia % (Auto) 4.0 Eos % (Auto) 1.1 [...] symptoms or any other concerns. Print Language: Comoran Disposition Disposition: Home, Self Care What to do if you have Problems For any increased pain, shortness of breath, bleeding, nausea or vomiting, chestpain, or any unexpected problems, contact your Primary Care Provider. Call [facility] ([phone]) or report to the closest Emergency Room. Call 911 if necessary. 12/08/24 1119 <Electronically signed by Deonte Beckett DO> Cosigner Signature (if applicable): CC: FILIBERTO Walker ~ Signed [facility] Work Phone: Evaluation note* Diagnosis Attention deficit [...] acute Encounter for screening for COVID-19 acute [facility] Work Phone: Evaluation noteNo assessment information available [facility] Work Phone: Evaluation note* Diagnosis Depression, unspecified [...] and somatic dysfunction of thoracic region acute [facility] Work Phone: Evaluation note* Diagnosis Onset Date [...] of thoracic region acute Back pain noneactive [facility] Work Phone: Evaluation note* Diagnosis Attention deficit [...] without status migrainosus [facility] Diagnosis Attention deficit hyperactivity disorder (ADHD), predominantly inattentive type [facility] Diagnosis Attention deficit hyperactivity disorder (ADHD), predominantly inattentive type- Primary [facility] Diagnosis Well adult exam- Primary Routine general medical examination at a health care facility Attention deficit hyperactivity disorder (ADHD), predominantly inattentive type Therapeutic drug monitoring Encounter for therapeutic drug monitoring Screening mammogram for breast cancer Morbid obesity with BMI of 40.0-44.9, adult (HCC) Dyslipidemia, goal LDL below 100 [facility] Diagnosis Encounter for well adult exam [...] general medical examination at a health care [facility] Attention deficit hyperactivity disorder (ADHD), predominantly inattentive type Mood disorder Unspecified episodic mood disorder Attention deficit hyperactivity disorder (ADHD), predominantly inattentive type Vitamin D deficiency Intractable migraine with aura without status migrainosus Well adult exam- Primary Routine general medical examination at a health care [facility] Iron deficiency Disorders of iron [...] Primary Routine general medical examination at a [facility] Attention deficit hyperactivity disorder (ADHD), predominantly inattentive type Therapeutic drug monitoring Encounter for therapeutic drug monitoring Screening mammogram for breast cancer Morbid obesity with BMI of 40.0-44.9, adult (HCC) Dyslipidemia, goal LDL below 100 Intractable migraine with aura without status migrainosus Attention deficit hyperactivity disorder (ADHD), predominantly inattentive type [facility] Diagnosis Encounter for well adult exam without abnormal findings- Primary Attention deficit hyperactivity disorder (ADHD), unspecified ADHD type Attention deficit hyperactivity disorder (ADHD), unspecified ADHD type Attention deficit hyperactivity disorder (ADHD), unspecified ADHD type Attention deficit hyperactivity disorder (ADHD), 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), unspecified ADHD type Well adult exam- Primary Routine general medical examination at a health care [facility] Attention deficit hyperactivity disorder (ADHD), [...] general medical examination at a health care [facility] Intractable migraine with aura without [...] exam Routine general medical examination at a [facility] Attention deficit hyperactivity disorder (ADHD), predominantly inattentive type Mood disorder Unspecified episodic mood disorder Attention deficit hyperactivity disorder (ADHD), predominantly inattentive type Vitamin D deficiency Intractable migraine with aura without status migrainosus Well adult exam- Primary Routine general medical examination at a [facility] Iron deficiency Disorders of iron [...] general medical examination at a health care [facility] Attention deficit hyperactivity disorder (ADHD), [...] general medical examination at a health care [facility] Attention deficit hyperactivity disorder (ADHD), [...] Primary Routine general medical examination at a [facility] care facility Attention deficit hyperactivity disorder (ADHD), 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), predominantly inattentive type ANISH (generalized anxiety disorder) Generalized anxiety disorder Depression, unspecified depression type- Primary Attention deficit hyperactivity disorder (ADHD), predominantly inattentive type Intractable migraine with aura without status migrainosus Screening mammogram for breast cancer Well adult exam- Primary Routine general medical examination at a [facility] Intractable migraine with aura without [...] exam Routine general medical examination at a [facility] care [facility] Attention deficit hyperactivity disorder (ADHD), [...] predominantly inattentive type documented in this encounter [facility] note* Diagnosis Encounter for well adult exam [...] Primary Routine general medical examination at a [facility] care [facility] Intractable migraine with aura without [...] unspecified depression type [facility] Diagnosis Encounter for well adult exam [...] general medical examination at a health care [facility] Attention deficit hyperactivity disorder (ADHD), predominantly inattentive type Therapeutic drug monitoring Encounter for therapeutic drug monitoring Screening mammogram for breast cancer Morbid obesity with BMI of 40.0-44.9, adult (HCC) Dyslipidemia, goal LDL below 100 Attention deficit hyperactivity disorder (ADHD), predominantly inattentive type- Primary Depression, unspecified depression type Attention deficit hyperactivity disorder (ADHD), predominantly inattentive type [facility] Diagnosis Encounter for well adult exam [...] general medical examination at a health care [facility] Iron deficiency Disorders of iron [...] general medical examination at a health care [facility] Attention deficit hyperactivity disorder (ADHD), [...] unspecified depression type documented in this encounter [facility] note* Diagnosis Encounter for well adult exam [...] unspecified depression type [facility] Diagnosis Encounter for well adult exam [...] general medical examination at a health care [facility] Attention deficit hyperactivity disorder (ADHD), predominantly inattentive type Mood disorder Unspecified episodic mood disorder Attention deficit hyperactivity disorder (ADHD), predominantly inattentive type Vitamin D deficiency Intractable migraine with aura without status migrainosus Well adult exam- Primary Routine general medical examination at a [facility] Iron deficiency Disorders of iron [...] Primary Routine general medical examination at a [facility] Attention deficit hyperactivity disorder (ADHD), predominantly inattentive type Therapeutic drug monitoring Encounter for therapeutic drug monitoring Screening mammogram for breast cancer Morbid obesity with BMI of 40.0-44.9, adult (HCC) Dyslipidemia, goal LDL below 100 Attention deficit hyperactivity disorder (ADHD), predominantly inattentive type- Primary Depression, unspecified depression type Well adult exam- Primary Routine general medical examination at a [facility] Screening mammogram for breast cancer Attention deficit hyperactivity disorder (ADHD), predominantly inattentive type documented [facility] Diagnosis Encounter for well adult exam without abnormal findings- Primary Attention deficit hyperactivity disorder (ADHD), unspecified ADHD type Attention deficit hyperactivity disorder (ADHD), unspecified ADHD type Attention deficit hyperactivity disorder (ADHD), unspecified ADHD type Attention deficit hyperactivity disorder (ADHD), 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), unspecified ADHD type Well adult exam- Primary Routine general medical examination at a [facility] Attention deficit hyperactivity disorder (ADHD), [...] Primary Routine general medical examination at a [facility] Attention deficit hyperactivity disorder (ADHD), 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), predominantly inattentive type ANISH (generalized anxiety disorder) Generalized anxiety disorder Depression, unspecified depression type- Primary Attention deficit hyperactivity disorder (ADHD), predominantly inattentive type Intractable migraine with aura without status migrainosus Screening mammogram for breast cancer Well adult exam- Primary Routine general medical examination at a [facility] Intractable migraine with aura without [...] exam Routine general medical examination at a [facility] Attention deficit hyperactivity disorder (ADHD), predominantly inattentive type Mood disorder Unspecified episodic mood disorder Attention deficit hyperactivity disorder (ADHD), predominantly inattentive type Vitamin D deficiency Intractable migraine with aura without status migrainosus Well adult exam- Primary Routine general medical examination at a [facility] Iron deficiency Disorders of iron [...] Primary Routine general medical examination at a [facility] Attention deficit hyperactivity disorder (ADHD), predominantly inattentive type Therapeutic drug monitoring Encounter for therapeutic drug monitoring Screening mammogram for breast cancer Morbid obesity with BMI of 40.0-44.9, adult (HCC) Dyslipidemia, goal LDL below 100 Attention deficit hyperactivity disorder (ADHD), predominantly inattentive type- Primary Depression, unspecified depression type Well adult exam- Primary Routine general medical examination at a [facility] Screening mammogram for breast cancer Attention deficit hyperactivity disorder (ADHD), predominantly inattentive type Intractable migraine with aura without status migrainosus [facility] Additional Instructions Follow-up with your doctor in the outpatient setting. Return with worsening symptoms or concerns. Your cardiac workup did not show any acute findings your EKG was normal your chest x-ray did not show any acute findings either. Return with worsening symptoms or any other concerns.[facility] Work Phone: Instructions* Attachments The following attachments cannot be sent through Care Everywhere. * ADHD: Adults: General Info (Comoran) * Depression: Chronic Disease (Comoran) * Migraine Headache (Comoran) documented in this encounterOhioHealthInstructions* Attachments The following attachments cannot be sent through Care Everywhere. * ADHD: Adults: General Info ([place]an) documented in this encounterOhioHealthInstructions* Attachments The following attachments cannot be sent through Care Everywhere. * Well Visit: 18 to 65 Years (Comoran) * ADHD: Adults: General Info (Comoran) documented in this encounterOhioHealthInstructions* Attachments The following attachments cannot be sent through Care Everywhere. * Depression: Chronic Disease (Comoran) * Vitamin D: General Info (Comoran) * ADHD: Adults: General Info ([place]an) documented in this encounterOhioHealthInstructions* Attachments The following attachments cannot be sent through Care Everywhere. * Migraine Headache (Comoran) * Depression: Chronic Disease (Comoran) * ADHD: Adults: General Info ([place]oran) documented in this encounterOhioHealthInstructions* Attachments The following attachments cannot be sent through Care Everywhere. * Well Visit: 18 to 65 Years (Comoran) * ADHD: Adults: General Info (Comoran) documented in this encounterOhioHealthInstructions* Attachments The following attachments cannot be sent through Care Everywhere. * ADHD: Adults: General Info (Comoran) * Depression: Treatment ([place]oran) documented in this encounterOhioHealthInstructions* Attachments The following attachments cannot be sent through Care Everywhere. * Well Visit: 18 to 65 Years (Comoran) documented in this encounterOhioHealthProgress note Author Kevin Brand [facility] Note Date/Time March 23, 2025 11 :15am [facility] [address] [place] [address] OFFICE VISIT Date of Service: 03/23/25 MR#: [id number] Acct: [id number] Patient: FRIDA WIN Rep #: [id number] : [id number] Provider: MARTHA Arnold Age/Sex: 44/F Location: 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 No December 08, 2024 8:04am Instructions * Patient Instructions* Barbara Castillo Romario, QUALITY CONTROL INSPECTOR - 08/09/2018 8:51 AM EST Problem List [...] is very common. It usually starts in paper colorer. Many adults don't realize they have it [...] Log into your personal health record on [email or web address] and enter B196 in the Education box to learn more about Attention Deficit Hyperactivity Disorder (ADHD) in Adults: Care Instructions. Current as of: February 26, 2018 Content Version: 11.9 8701-1309 Marketshot. Care instructions adapted under license by your healthcare professional. If you have questions about a medical condition or this instruction, always ask your healthcare professional. Marketshot disclaims any warranty or liability for your [...] is very common. It usually starts in paper colorer. Many adults don't realize they have it [...] Log into your personal health record on [email or web address] and enter B196 in the Education box to learn more about Attention Deficit Hyperactivity Disorder (ADHD) in Adults: Care Instructions. Current as of: February 26, 2018 Content Version: 11.9 5697-4220 Marketshot. Care instructions adapted under license by your healthcare professional. If you have questions about a medical condition or this instruction, always ask your healthcare professional. Marketshot disclaims any warranty or liability for your [...] is very common. It usually starts in paper colorer. Many adults don't realize they have it [...] Log into your personal health record on [email or web address] and enter B196 in the Education box to learn more about Attention Deficit Hyperactivity Disorder (ADHD) in Adults: Care Instructions. Current as of: February 26, 2018 Content Version: 12.0 7933-1129 Marketshot. Care instructions adapted under license by your healthcare professional. If you have questions about a medical condition or this instruction, always ask your healthcare professional. Marketshot disclaims any warranty or liability for your [...] is very common. It usually starts in paper colorer. Many adults don't realize they have it [...] Log into your personal health record on [email or web address] and enter B196 in the Education box to learn more about Attention Deficit Hyperactivity Disorder (ADHD) in Adults: Care Instructions. Current as of: February 26, 2018 Content Version: 12.20052118-4159 Marketshot. Care instructions adapted under license by your healthcare professional. If you have questions about a medical condition or this instruction, always ask your healthcare professional. Marketshot disclaims any warranty or liability for your [...] is very common. It usually starts in paper colorer. Many adults don't realize they have it [...] Log into your personal health record on [email or web address] and enter B196 in the Education box to learn more about Attention Deficit Hyperactivity Disorder (ADHD) in Adults: Care Instructions. Current as of: November 12, 2018 Content Version: 12.3 3299-3537 Marketshot. Care instructions adapted under license by your healthcare professional. If you have questions about a medical condition or this instruction, always ask your healthcare professional. Marketshot disclaims any warranty or liability for your [...] time. I will review your labs via AdvanDx or the office will with your results. [...] is very common. It usually starts in paper colorer. Many adults don't realize they have it [...] Log into your personal health record on [email or web address] and enter B196 in the Education box to learn more about Attention Deficit Hyperactivity Disorder (ADHD) in Adults: Care Instructions. Current as of: July 18, 2019 Content Version: 12.5 Marketshot. Care instructions adapted under license by your healthcare professional. If you have questions about a medical condition or this instruction, always ask your healthcare professional. Marketshot disclaims any warranty or liability for your use of this information. documented in this encounter* Patient Instructions* Barbara Cruz Romario, QUALITY CONTROL INSPECTOR - 06/01/2020 12:12 PM EST Problem List [...] is very common. It usually starts in paper colorer. Many adults don't realize they have it [...] Log into your personal health record on [email or web address] and enter B196 in the Education box to learn more about Attention Deficit Hyperactivity Disorder (ADHD) in Adults: Care Instructions. Current as of: March 10, 2020 Content Version: 12.7 Marketshot. Care instructions adapted under license by your healthcare professional. If you have questions about a medical condition or this instruction, always ask your healthcare professional. Marketshot disclaims any warranty or liability for your [...] medicationhas been prescribed by her psychologist in [place] up to this point. She would like to have this office take over her ADHD care so she does not have to drive clear to [place] monthly. ADHD- Symptoms began 20-30 years ago [...] other care provider. Changed by: Barbara Castillo [facility] CONTINUE taking these medications cloNIDine HCl 0.1 MG tablet Commonly known as: CATAPRES Take 1 (one) tablet (0.1 mg total) by mouth nightly as needed . 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 I will review your labs via AdvanDx or the office will with your results. [...] this chart may have been created with CohesiveFT voice recognition software. Occasional wrong-word or sound-like [...] covid. 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 Occasional wrong-word or sound-like [...] Bilateral Mela Walker CNP [address] [place] [address] Referral ID Status Reason Start Date Expiration Date V isits Requested Visits Authorized [id number] Authorized 02/10/2022 02/10/2023 1 1 Referral ID Status Reason Start Date Expiration Date V isits Requested Visits Authorized [id number] Authorized 03/13/2024 03/13/2025 1 1 Chief Complaint and Reason for Visit Chief Complaint [facility] SNF-COVID 19 REQ UIRED TESTING [facility] SNF-[facility]OVID 19 REQUIRED TESTING [facility] SNF-COVID 19 REQUIRED TESTING Chief Complaint [facility] SNF-COVID 19 REQ UIRED TESTING [facility] SNF-COVID 19 REQUIRED TESTING Chief Complaint [...] Back pain Chief Complaint Admit Date 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) * [facility] [employer] EMPLOYEE* October 14, 2024 3:02pm DIZZINESS December 08, 2024 7:11 am Reason for Visit Admit Date Women's annual routine gynecological exa mination October 14, 2024 3:02pm Chief Complaint Admit Date 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) * [facility] [employer] EMPLOYEE* October 14, 2024 3:02pm DIZZINESS December 08, 2024 7:11 am EMPLOYEE LABS January 23, 2025 6:3 4am Chief Complaint Admit Date 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 I will review your labs via AdvanDx or the office will with your results. [...] Assessment Attending Provider, Referring P angelica Active Shot Blaster Relationship Specialty Start Date End Date Mela Walker, QUALITY CONTROL INSPECTOR [address] [place] [address], [place] [address] PCP - General Nurse Practitioner 08/11/20 Shot Blaster Relationship Specialty Start Date End Date Mela Walker, QUALITY CONTROL INSPECTOR [address] [place] [address], [place] [address] PCP - General Nurse Practitioner 08/11/20 Mela Walker, QUALITY CONTROL INSPECTOR [address] [place] [address] PCP - BALDEV Attributed Provider - MMO Commercial 07/19/19 06/17/50 Shot Blaster Relationship Specialty Start Date End Date Mela Walker, QUALITY CONTROL INSPECTOR [address] [place] [address] PCP - General Nurse Practitioner 08/11/20 Mela Walker, QUALITY CONTROL INSPECTOR [address] [place] [address], [place] [address] PCP - BALDEV Attributed Provider - MMO Commercial 07/19/19 06/17/50 Shot Blaster Relationship Specialty Start Date End Date Mela Walker, QUALITY CONTROL INSPECTOR [address] [place] [address] PCP - General Nurse Practitioner 08/11/20 Mela Walker, QUALITY CONTROL INSPECTOR [address] [place] [address], [place] [address] PCP - BALDEV Attributed Provider - MMO Commercial 07/19/19 06/17/50 Shot Blaster Relationship Specialty Start Date End Date Mela Walker, QUALITY CONTROL INSPECTOR [address] [place] [address], [place] [address] PCP - General Nurse Practitioner 08/11/20 Mela Walker, QUALITY CONTROL INSPECTOR [address] [place] [address], [place] [address] PCP - BALDEV Attributed Provider - MMO Commercial 07/19/19 06/17/50 Shot Blaster Relationship Specialty Start Date End Date Mela Walker QUALITY CONTROL INSPECTOR [address] [place] [address] PCP - General Nurse Practitioner 08/11/20 Mela Walker CNP [address] [place] [address] PCP - BALDEV Attributed Provider - MMO Commercial 07/19/19 06/17/50 Team Status: Active Member Role Status Dates MELA WALKER Primary Care Provider Active Team Status: Inactive Member Role Status Dates DENISE CANO Primary Care Provider Active Dr. Karlo Good MD Attending Provider Active Shot Blaster Relationship Specialty Start Date End Date Mela Walker CNP [address] [place] [address] PCP - General Nurse Practitioner 08/11/20 Mela Walker QUALITY CONTROL INSPECTOR [address] [place] [address], [place] [address] PCP - BALDEV Attributed Provider - MMO Commercial 07/19/19 06/17/50 Shot Blaster Relationship Specialty Start Date End Date Mela Walker CNP [address] [place] [address], [place] [address] PCP - General Nurse Practitioner 08/11/20 Shot Blaster Relationship Specialty Start Date End Date Mela Walker CNP [address] [place] [address], [place] [address] PCP - General Nurse Practitioner 08/11/20 Shot Blaster Relationship Specialty Start Date End Date Mela Walker CNP [address] [place] [address], [place] [address] PCP - General Nurse Practitioner 08/11/20 Shot Blaster Relationship Specialty Start Date End Date Mela Walker, MARYA [address] [place] [address], [place] [address] PCP - General Nurse Practitioner 08/11/20 Shot Blaster Relationship Specialty Start Date End Date Mela Walker, QUALITY CONTROL INSPECTOR [address] [place] [address], [place] [address] PCP - General Nurse Practitioner 08/11/20 Shot Blaster Relationship Specialty Start Date End Date Mela Walker, QUALITY CONTROL INSPECTOR [address] [place] [address], [place] [address] PCP - General Nurse Practitioner 08/11/20 Shot Blaster Relationship Specialty Start Date End Date Mela Walker, MARYA [address] [place] [address], [place] [address] PCP - General Nurse Practitioner 08/11/20 Shot Blaster Relationship Specialty Start Date End Date Mela Walker, QUALITY CONTROL INSPECTOR [address] [place] [address], [place] [address] PCP - General Nurse Practitioner 08/11/20 Shot Blaster Relationship Specialty Start Date End Date Mela Walker, QUALITY CONTROL INSPECTOR [address] [place] [address], [place] [address] PCP - General Nurse Practitioner 08/11/20 Shot Blaster Relationship Specialty Start Date End Date Mela Walker MARYA [address] [place] [address], [place] [address] PCP - General Nurse Practitioner 08/11/20 Shot Blaster Relationship Specialty Start Date End Date Mela Walker CNP [address] [place] [address], [place] [address] PCP - General Nurse Practitioner 08/11/20 Shot Blaster Relationship Specialty Start Date End Date Mela Walker CNP [address] [place] [address], [place] [address] PCP - General Nurse Practitioner 08/11/20 Team [...] December 08, 2024 End: December 08, 2024 Shot Blaster Relationship Specialty Start Date End Date Mela Walker CNP [facility] [address] [place] [address], [place] [address] PCP - General Nurse Practitioner 08/11/20 Team Status: Active Member Role/Relationship Status Dates FILIBERTO Cooper Primary Care Provider Active Team Status: Inactive Member Role/Relationship Status Dates Mela Walker , LEAF SIZE PICKER-C Primary Care Provider Active Start: October 14, 2024 End: October 14, 2024 Mela Walker NP-C Referring Provider Active St art: October 14, 2024 End: October 14, 2024 RYAN BradshawC Attending Provider Active Start: October 14, 2024 End: October 14, 2024 Team Status: Inactive Member Role/Relationship Status Dates Mela Walker LEAF SIZE PICKER-C Primary Care Provider Active Start: December 08, 2024 End: December 08, 2024 Dr. Deonte Beckett , Attending Provider Active Start: December 08, 2024 End: December 08, 2024 Dr. Deonte Beckett , Emergency Provider Active Start: December 08, 2024 End: December 08, 2024 Team Status: Inactive Member Role/Relationship Status Dates Mela Walker LEAF SIZE PICKER-C Primary Care Provider Active Start: January 12, 2025 End: January 12, 2025 RYAN CooperC Attending Provider Active St art: January 12, 2025 End: January 12, 2025 Mela Walker LEAF SIZE PICKER-C Referring Provider Active St art: January 12, 2025 End: January 12, 2025 Team Status: Inactive Member Role/Relationship Status Dates Mela Walker LEAF SIZE PICKER-C Primary Care Provider Active Start: January 23, [...] Inactive Member Role/Relationship Status Dates Mela Walker LEAF SIZE PICKER-C Primary Care Provider Active Start: January 29, 2025 End: January 29, 2025 Mela Walker LEAF SIZE PICKER-C Referring Provider Active St art: January 29, 2025 End: January 29, 2025 Dr. Priyanka Leonardo , SHEYLA Attending Provider Active S tart: January 29, 2025 End: January 29, 2025 Shot Blaster Relationship Specialty Start Date End Date Mela Walker CNP [address] [place] [address], [place] [address] PCP - General Nurse Practitioner 08/11/20 Shot Blaster Relationship Specialty Start Date End Date Mela Walker CNP [address] [place] [address], [place] [address] PCP - General Nurse Practitioner 08/11/20 Shot Blaster Relationship Specialty Start Date End Date Mela Walker CNP [address] [place] [address], [place] [address] PCP - General Nurse Practitioner 08/11/20 Shot Blaster Relationship Specialty Start Date End Date Mela Walker CNP [address] [place] [address], [place] [address] PCP - General Nurse Practitioner 08/11/20 Team [...] March 23, 2025 End: March 23, 2025 Shot Blaster Relationship Specialty Start Date End Date Mela Walker CNP [address] [place] [id number] PCP - General Nurse Practitioner 08/11/20 Goals [...] BE BASED ON THE PRIMARY CLINICAL RECORDS. [employer] [facility]. provides no warranty or guarantee of the accuracy or completeness of information in this document.
[2025-06-12 08:12] LABS: FOLATES,SERUM (FOLIC ACID) 10.40 ng/mL (4.60-34.80)
[2025-06-12 11:36] LABS: CORTISOL AM 7.32 ug/dL (6.02-18.40); Ferritin 263 ng/mL (22-378); Follicle Stimulating Hormone 6.0 mIU/mL; Free T3 3.3 pg/mL (2.18-3.98); Iron 57 ug/dL (50-170); Iron Binding Capacity,Total 248 ug/dL (250-450); Iron Binding Capacity,Unsat 191 ug/dL (228-428); Vitamin B12 624 pg/mL (180-914); Vitamin D,25 Hydroxy 20.9 ng/mL (30-100)
[2025-06-17 11:08] LABS: Testosterone, % Free 1.34 % (0.50-2.80); Testosterone, Free 0.39 ng/dL (0.10-0.85)
== END | disposition home or self-care (01) ==
PROVIDERS: PCP Nurse Practitioner Family; Referring Provider Nurse Practitioner Family; Visit Provider Nurse Practitioner Family
DX: N95.1 Menopausal and female climacteric states (principal); E66.9 Obesity, unspecified
CPT/HCPCS: 36415; 82306; 82533; 82607; 82670; 82728; 82746; 83001; 83002; 83525; 83540; 83550; 84402; 84403; 84439; 84443; 84481; 86376